=== PATIENT | female | born 1935 | race Caucasian/White ===

== ENCOUNTER 2020-04-19 05:18 | Inpatient (IN) ==
--- NOTE | 2020-04-19 05:35 | Emergency Department Note ---
Impression & Plan Closed fracture of left hip, Fall, Acute UTI (urinary tract infection) ED Provider Note Name: HALEIGH SNYDER Age: 84 Sex: F Arrives Via: Ambulance Informant: Patient, EMS ED Provider: David Chisholm MD Chief Complaint: Left hip pain Impression: Closed fracture of left hip Fall Medical Decision Making: Pleasant talkative 84 yr old female wit history of HTN, DLP, CKD who arrives with left hip pain gradually worsening since fall 4 days ago and now unable to ambulate even with assist. Comfortable with laying still but with ROM left hip clearly uncomfortable. Initial hip xray with questionable fx at base femoral head and thus CT ordered. With fall and age CT head done which was negative. CT lumbar given previous surgical history and age with fall which was negative for acute findings. CT pelvis confirms fracture. Labs unremarkable. Hospital ist consulted for further management. Patient stable and comfortable throughout stay. Prior Medical Record and Triage/Nursing Notes reviewed by Me Differentials:Fracture, dislocation, sprain, hematoma, ICH, amongst other pathologies. Vital Signs: reviewed and remarkable for no significant abnormalities Interventions: saline lock Labs:Reviewed and remarkable for no significant abnormalities Imaging:X ray results are stated below per my interpretation: Chest: 1 view: No infiltrate, no effusion, normal cardiac border. Pelvis: 2 ivew: assymitry left hip to right with concern base femoral head fracture on left Femur: left: 3 view: base femoral head irregularity EKG:Per My Interpretation: Indication Fall, pre-op: NSR 66 bpm, qtc 450. No Ectopy. No Ischemia. Compared to EKG 04/05/18, no significant changes. Consults:Dr Donovan Lee Hospitalist Plan: Disposition:Hospitalization. Condition: Good Blood pressure:Normal.No Referral necessary Prescriptions:none PDMP: n/a History of Present Illness:84 / F with history of HTN, DLP, CKD arrives for evaluation of left hip pain. Patient admits trip and fall on to buttocks 4 days ago. Gradually worsening left hip pain since then. Worse with movement, better with rest. Pain radiates in to left groin. No associated symptoms. She initially was able to get around with assistance but now can put no weight on left leg even with assist and walker. Using Tylenol for pain with minimal improvement. Has never injured hip previously. Notes low back surgery in past but no problems recently and denies back pain. Denies head injury, headache, neck pain, sob, cp, cough, fevers, syncope, abdominal pain, back pain, urinary/bowel changes, leg swelling, calf pain nor other symptoms. She denies frequent falls. Denies blood thinner use but is on ASA daily. No previous bleeding issues. ROS: See above HPI for pertinent positives & negatives. A total of 10 systems reviewed and were otherwise negative. Past Medical History:HTN, DLP, CKD, anxiety/depression, gerd Past Surgical History:Lumbar surgery Family History:na/ Social History:Lives with daughter, denies etoh, denies smoking, retired Home Medications:Amlodipine, aspirin, atenolol, atorvastatin, famotidine, fluoxetine, furosemide, meclizine Allergies:PNC, Cephalosporins, Lisinopril, simvastatin, quinine, propoxyphen Vitals:Blood Pressure: 151/54, Pulse 68, RR 18, T 36.5C, O2 95% on RA Physical Exam: GENERAL: Patient is well appearing and in mild distress. Anxious EYES: No scleral icterus, unremarkable pupils. ENT: Mucous membranes moist, no nasal congestion. NECK: No masses appreciated, nomeningismus, trachea is midline. RESPIRATORY: No dyspnea. Clear to auscultation and equal bilaterally. No wheeze, no rhonchi. CARDIOVASCULAR: Regular rate and rhythm.No murmurs, rubs, gallops appreciated. GASTROINTESTINAL: Abdomen soft, non-tender, no peritonitis.Bowel sounds positive.No masses appreciated. BACK: No midline tenderness, no CVA tenderness EXTREMITIES: Pain with rom left hip. Otherwise normal motion all extremities, no cyanosis, no edema. NEUROLOGIC: Alert and oriented, no acute motor or sensory deficits, no focal weakness, cranial nerves grossly intact. SKIN: No rash, no jaundice, no diaphoresis. 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 Beliefs That Will Affect Care: None Current Living Situation: Alone Other Information That Helps Us Care for You: No Feels Safe at Home: Yes Safety Concerns: Feels Safe At This Time Smoking Status: Never smoker Hx Alcohol Use: No Hx Substance Use: No Allergies Allergies Allergy/AdvReac Type Severity Reaction Status Date / Time Penicillins Allergy Unknown UNKNOWN Verified 04/19/20 06:00 propoxyphene Allergy Unknown UNKNOWN Verified 04/19/20 06:00 Cephalosporins AdvReac Intermediate DIZZINESS Verified 04/19/20 06:00 & NAUSEA lisinopril AdvReac Intermediate COUGH Verified 04/19/20 06:00 simvastatin AdvReac Intermediate MUSCLE PAIN Verified 04/19/20 06:00 QUININE SULFATE Allergy Unknown UNKNOWN Uncoded 04/19/20 06:00 Home Meds Home Medications Medication Instructions Recorded Confirmed amlodipine 5 mg PO DAILY 04/19/20 04/19/20 aspirin 81 mg PO DAILY 04/19/20 04/19/20 atenolol 50 mg PO DAILY 04/19/20 04/19/20 atorvastatin 10 mg PO DAILY 04/19/20 04/19/20 famotidine 20 mg PO BID PRN 04/19/20 04/19/20 fluoxetine 20 mg PO DAILY 04/19/20 04/19/20 furosemide 20 mg PO DAILY 04/19/20 04/19/20 meclizine 25 mg PO TID PRN 04/19/20 04/19/20 multivitamin 1 tab PO DAILY 04/19/20 04/19/20 Results & Data (ED) Vital Signs Vital Signs - 24 hr 04/19/20 06:00 04/19/20 06:01 04/19/20 06:30 Pulse Rate 76 73 Pulse Rate [Apical] 88 Pulse Rate from SpO2 Sensor Pulse Rhythm [Apical] Pulse Strength [Apical] Respiratory Rate 24 20 16 Respiratory Effort / Characteristics Non-Labored Spontaneous Respiratory Depth Normal Respiratory Pattern Blood Pressure 146/58 H Blood Pressure [Right Arm] 146/58 H Blood Pressure Mean 93 Blood Pressure Mean [Right Arm] 87 Blood Pressure Position [Right Arm] Pulse Oximetry 95 94 98 Oxygen Delivery Method Room Air 04/19/20 06:31 04/19/20 06:32 04/19/20 06:35 Pulse Rate 69 66 Pulse Rate [Apical] 68 Pulse Rate from SpO2 Sensor Pulse Rhythm [Apical] Pulse Strength [Apical] Respiratory Rate 20 19 18 Respiratory Effort / Characteristics Respiratory Depth Respiratory Pattern Blood Pressure 151/54 H Blood Pressure [Right Arm] 151/54 H Blood Pressure Mean 84 Blood Pressure Mean [Right Arm] 86 Blood Pressure Position [Right Arm] Sitting Pulse Oximetry 93 94 95 Oxygen Delivery Method Room Air 04/19/20 07:00 04/19/20 07:01 04/19/20 07:10 Pulse Rate 63 63 Pulse Rate [Apical] 66 Pulse Rate from SpO2 Sensor 63 64 Pulse Rhythm [Apical] Regular Pulse Strength [Apical] Normal Respiratory Rate 19 21 21 Respiratory Effort / Characteristics Non-Labored Spontaneous Respiratory Depth Normal Respiratory Pattern Regular Blood Pressure 140/56 L Blood Pressure [Right Arm] 140/56 L Blood Pressure Mean 98 Blood Pressure Mean [Right Arm] 84 Blood Pressure Position [Right Arm] Lying Pulse Oximetry 94 93 96 Oxygen Delivery Method Room Air 04/19/20 07:30 04/19/20 07:31 Pulse Rate 76 74 Pulse Rate [Apical] Pulse Rate from SpO2 Sensor Pulse Rhythm [Apical] Pulse Strength [Apical] Respiratory Rate 21 22 Respiratory Effort / Characteristics Respiratory Depth Respiratory Pattern Blood Pressure 160/60 H Blood Pressure [Right Arm] Blood Pressure Mean 78 Blood Pressure Mean [Right Arm] Blood Pressure Position [Right Arm] Pulse Oximetry 94 94 Oxygen Delivery Method Laboratory Data Result diagrams: 04/19/20 05:45 04/19/20 06:53 Lab Results 04/19/20 04/19/20 04/19/20 Range/Units 05:45 05:45 05:45 WBC 9.12 (4.8-10.8) K/uL RBC 4.25 (4.2-5.4) M/uL Hgb 13.0 (12.0-16.0) g/dL Hct 39.6 (37-47) % MCV 93.2 (80-100) fL MCH 30.6 (25-34) pg MCHC 32.8 (32-36) g/dL RDW Std Deviation 46.1 (36.4-46.3) fL RDW Coeff of Edison 13.6 (11.5-14.5) % Plt Count 201 (130-400) K/uL MPV 10.3 (7.4-10.4) fL Immature Gran % (Auto) 0.2 % Neut % (Auto) 68.1 % Lymph % (Auto) 15.0 % [facility] % (Auto) 13.9 % Eos % (Auto) 2.3 % Baso % (Auto) 0.5 % Neut # (Auto) 6.20 (1.4-6.5) K/uL Lymph # (Auto) 1.37 (1.2-3.4) K/uL [facility] # (Auto) 1.27 H (0.11-0.59) K/uL Eos # (Auto) 0.21 (0-0.5) K/uL Baso # (Auto) 0.05 (0-0.2) K/uL Immature Gran # (Auto) 0.02 (0.00-0.02) K/uL PT Cancelled INR Cancelled APTT (21.0-31.0) Seconds PTT Ratio Sodium 143 (136-145) mmol/L Potassium (3.5-5.1) mmol/L Chloride 110 H (98-107) mmol/L Carbon Dioxide 24 (21-32) mmol/L Anion Gap 9.0 (3-11) BUN 21 H (7-18) mg/dl Creatinine 0.93 (0.6-1.2) mg/dl Est Cr Clr Drug Dosing 50.5 ml/min Est GFR ( Amer) 65.0 Est GFR (Non-Af Amer) 56.0 BUN/Creatinine Ratio 22.2 H (10-20) Glucose 104 H (70-99) mg/dl Calcium 9.2 (8.5-10.1) mg/dl Magnesium (1.8-2.4) mg/dl Urine Color Urine Appearance (Clear) Urine pH (4.5-7.5) Ur Specific Morehead (1.000-1.030) Urine Protein (Negative) Urine Glucose (UA) (Negative) Urine Ketones (Negative) Urine Blood (Negative) Urine Nitrite (Negative) Urine Bilirubin (Negative) Urine Urobilinogen (Negative) Ur Leukocyte Esterase (Negative) Urine WBC (Auto) (0-5) /hpf Urine RBC (Auto) (0-4) /hpf U Hyaline Cast (Auto) (0-5) /lpf U Epithel Cells (Auto) (0-5) /lpf Urine Bacteria (Auto) (Negative) Urine Yeast 04/19/20 04/19/20 04/19/20 Range/Units 06:10 06:53 06:53 WBC (4.8-10.8) K/uL RBC (4.2-5.4) M/uL Hgb (12.0-16.0) g/dL Hct (37-47) % MCV (80-100) fL MCH (25-34) pg MCHC (32-36) g/dL RDW Std Deviation (36.4-46.3) fL RDW Coeff of Edison (11.5-14.5) % Plt Count (130-400) K/uL MPV (7.4-10.4) fL Immature Gran % (Auto) % Neut % (Auto) % Lymph % (Auto) % [facility] % (Auto) % Eos % (Auto) % Baso % (Auto) % Neut # (Auto) (1.4-6.5) K/uL Lymph # (Auto) (1.2-3.4) K/uL [facility] # (Auto) (0.11-0.59) K/uL Eos # (Auto) (0-0.5) K/uL Baso # (Auto) (0-0.2) K/uL Immature Gran # (Auto) (0.00-0.02) K/uL PT 10.8 INR 1.0 APTT 27.8 (21.0-31.0) Seconds PTT Ratio 1.0 Sodium (136-145) mmol/L Potassium 3.3 L (3.5-5.1) mmol/L Chloride (98-107) mmol/L Carbon Dioxide (21-32) mmol/L Anion Gap (3-11) BUN (7-18) mg/dl Creatinine (0.6-1.2) mg/dl Est Cr Clr Drug Dosing ml/min Est GFR ( Amer) Est GFR (Non-Af Amer) BUN/Creatinine Ratio (10-20) Glucose (70-99) mg/dl Calcium (8.5-10.1) mg/dl Magnesium 1.8 (1.8-2.4) mg/dl Urine Color Yellow Urine Appearance Turbid A (Clear) Urine pH 5.5 (4.5-7.5) Ur Specific Morehead 1.020 (1.000-1.030) Urine Protein 2+ H (Negative) Urine Glucose (UA) Negative (Negative) Urine Ketones 1+ H (Negative) Urine Blood 2+ H (Negative) Urine Nitrite Positive A (Negative) Urine Bilirubin Negative (Negative) Urine Urobilinogen Negative (Negative) Ur Leukocyte Esterase 3+ H (Negative) Urine WBC (Auto) >30 H (0-5) /hpf Urine RBC (Auto) 5-10 H (0-4) /hpf U Hyaline Cast (Auto) 1-5 (0-5) /lpf U Epithel Cells (Auto) >30 H (0-5) /lpf Urine Bacteria (Auto) 4+ H (Negative) Urine Yeast Not Reportable Administered Medications Acetaminophen (Tylenol) 650 mg PO Q6H PRN PRN Reason: Fever Stop: 05/19/20 20:07 Last Admin: 04/19/20 20:53 Dose: 650 mg Documented by: [id number] Amlodipine Besylate (Norvasc) 5 mg PO DAILY [facility] Stop: 05/19/20 08:24 Last Admin: 04/19/20 10:48 Dose: Not Given Documented by: [id number] Admin: 04/19/20 08:40 Dose: 5 mg Documented by: [id number] Aspirin (Ecotrin) 325 mg PO BID [facility] Stop: 05/19/20 20:59 Last Admin: 04/19/20 20:53 Dose: 325 mg Documented by: [id number] Admin: 04/19/20 20:51 Dose: 325 mg Documented by: [id number] Atenolol (Tenormin) 50 mg PO DAILY [facility] Stop: 05/19/20 09:36 Last Admin: 04/19/20 09:45 Dose: 50 mg Documented by: [id number] Atorvastatin Calcium (Lipitor) 10 mg PO DAILY [facility] Stop: 05/19/20 11:59 Last Admin: 04/19/20 12:50 Dose: Not Given Documented by: [id number] Fluoxetine HCl (Prozac) 20 mg PO DAILY [facility] Stop: 05/19/20 09:36 Last Admin: 04/19/20 12:49 Dose: Not Given Documented by: [id number] Potassium Chloride 20 meq/ (Dextrose/Sodium Chloride) 1,010 mls @ 100 mls/hr IV .Q10H6M [facility] Stop: 05/19/20 09:45 Last Admin: 04/20/20 00:35 Dose: 100 mls/hr Documented by: [id number] Infusion: 04/20/20 00:35 Dose: 100 mls/hr Documented by: [id number] Infusion: 04/19/20 22:41 Dose: 100 mls/hr Documented by: [id number] Infusion: 04/19/20 17:38 Dose: 100 mls/hr Documented by: [id number] Infusion: 04/19/20 13:40 Dose: 0 mls/hr Documented by: [id number] Admin: 04/19/20 11:34 Dose: 100 mls/hr Documented by: [id number] Ciprofloxacin (Cipro) 400 mg in 200 mls @ 100 mls/hr IV Q12H [facility] Stop: 04/23/20 20:59 Last Infusion: 04/19/20 22:48 Dose: 0 mls/hr Documented by: [id number] Admin: 04/19/20 19:55 Dose: 100 mls/hr Documented by: [id number] Clindamycin Phosphate 900 mg/ (Dextrose) 56 mls @ 112 mls/hr IV Q8H [facility] Stop: 04/20/20 21:59 Last Infusion: 04/19/20 23:41 Dose: 0 mls/hr Documented by: [id number] Admin: 04/19/20 22:42 Dose: 112 mls/hr Documented by: [id number] Morphine Sulfate (Morphine Sulfate) 2 mg IV Q3H PRN PRN Reason: MODERATE Pain (Scale 4,5,6) Stop: 05/03/20 09:36 Last Admin: 04/19/20 09:45 Dose: 2 mg Documented by: [id number] Multivitamins (Multivitamin Tab) 1 tab PO DAILY [facility] Stop: 05/19/20 11:59 Last Admin: 04/19/20 12:50 Dose: Not Given Documented by: [id number] Senna/Docusate Sodium (Senokot S) 2 tab PO HS [facility] Stop: 05/19/20 20:59 Last Admin: 04/19/20 20:52 Dose: 2 tab Documented by: [id number] Admin: 04/19/20 20:51 Dose: 2 tab Documented by: [id number] Discontinued Medications Aspirin (Ecotrin Ectab) 81 mg PO DAILY [facility] Stop: 05/19/20 11:59 Last Admin: 04/19/20 12:50 Dose: Not Given Documented by: [id number] Bupivacaine HCl (Marcaine 0.5% Mpf) Confirm Administered Dose 30 ml .ROUTE .STK- MED ONE Stop: 04/19/20 14:27 Last Admin: 04/19/20 15:42 Dose: 20 ml Documented by: [id number] Ciprofloxacin (Cipro) 400 mg in 200 mls @ 200 mls/hr IV NOW STA Stop: 04/19/20 07:50 Last Infusion: 04/19/20 08:08 Dose: 0 mls/hr Documented by: [id number] Admin: 04/19/20 07:08 Dose: 200 mls/hr Documented by: [id number] Potassium Acetate 10 meq/ (Sodium Chloride) 105 mls @ 105 mls/hr IV Q1H [facility] Stop: 04/19/20 10:24 Last Infusion: 04/19/20 11:07 Dose: 0 mls/hr Documented by: [id number] Admin: 04/19/20 09:48 Dose: 105 mls/hr Documented by: [id number] Infusion: 04/19/20 09:42 Dose: 105 mls/hr Documented by: [id number] Admin: 04/19/20 08:42 Dose: 105 mls/hr Documented by: [id number] Clindamycin Phosphate 900 mg/ (Dextrose) 56 mls @ 112 mls/hr IV PREOP [facility] Stop: 04/19/20 23:59 Last Infusion: 04/19/20 17:41 Dose: 0 mls/hr Documented by: [id number] Admin: 04/19/20 15:00 Dose: 112 mls/hr Documented by: [id number] Lidocaine HCl (Xylocaine 1% (Local)) Confirm Administered Dose 20 ml .ROUTE .STK-MED ONE Stop: 04/19/20 14:27 Last Admin: 04/19/20 15:42 Dose: 20 ml Documented by: [id number] Discharge Plan Visit Data *Final* Discharge Date/Time: 04/19/20 10:04 Chief Complaint: Fall Stated Complaint: Fall ED Provider: David Chisholm Discharge Problem: Closed fracture of left hip, Fall, Acute UTI (urinary tract infection) Patient Disposition: Admitted As Inpatient Discharge Instructions Interventions: ED Discharge Assessment Last Done: 04/19/20 10:04 Discharge Problem: Closed fracture of left hip Qualifiers: Encounter type: initial encounter Qualified Code(s): S72.002A - Fracture of unspecified part of neck of left femur, initial encounter for closed fracture Fall Qualifiers: Encounter type: initial encounter Qualified Code(s): W19.XXXA - Unspecified fall, initial encounter
[2020-04-19 05:55] LABS: Basophils # (auto) 0.05 K/uL (0-0.2); Basophils % (auto) 0.5 %; Eosinophils # (auto) 0.21 K/uL (0-0.5); Eosinophils % (auto) 2.3 %; Hematocrit (blood only) 39.6 % (37-47); Immature Granulocytes # (auto) 0.02 K/uL (0.00-0.02); Immature Granulocytes % (auto) 0.2 %; Lymphocytes # (auto) 1.37 K/uL (1.2-3.4); Mean Corpuscular Hemoglobin 30.6 pg (25-34); Mean Corpuscular Hgb Conc 32.8 g/dL (32-36); Mean Corpuscular Volume 93.2 fL (80-100); Mean Platelet Volume 10.3 fL (7.4-10.4); Monocytes # (auto) 1.27 K/uL (0.11-0.59); Monocytes % (auto) 13.9 %; Neutrophils % (auto) 68.1 %; Platelet Count 201 K/uL (130-400); RDW Coefficient of Variation 13.6 % (11.5-14.5); RDW Standard Deviation 46.1 fL (36.4-46.3); Red Blood Count 4.25 M/uL (4.2-5.4); White Blood Count 9.12 K/uL (4.8-10.8)
[2020-04-19 06:14] LABS: BUN Creatinine Ratio 22.2 (10-20); Calcium 9.2 mg/dl (8.5-10.1); Creatinine Clr Calc Pharmacy 50.5 ml/min
--- NOTE | 2020-04-19 06:38 | CT Scan Report ---
CT head/brain wo con CLINICAL HISTORY: 84 years-old Female with fall, hip fracture. Acute head injury status post fall TECHNIQUE: Multiple axial CT images of the head were obtained without contrast. A dose lowering tech nique was utilized adhering to the principles of ALARA. CT DOSE: 537.48 mGy.cm COMPARISON: Head CT 04/05/2018. FINDINGS: No acute intracranial hemorrhage, midline shift, intra-axial mass, hydrocephalus, territorial ischemi a or abnormal extra-axial collection. Age-related involutional changes. Confluent white matter hypode nsities suggest advanced chronic microvascular ischemic disease. 1.2 cm calcification of the anterior falx cerebri. Senescent calcifications of the lentiform nuclei. Cerebral vascular calcifications. The calvarium is intact. Note is made of a metopic suture. Hyperostosis frontalis interna. The parana sacha sinuses, mastoid air cells, and middle ear cavities are clear. IMPRESSION: No acute intracranial abnormality or calvarial fracture. ACT 112: Negative or not required by law. The above report was generated using voice recognition software. It may contain grammatical, syntax o r spelling errors. Electronically signed by: Ronnie Antoine M.D. 04/19/2020 6:37 AM
--- NOTE | 2020-04-19 06:41 | XRay Report ---
XR femur LT 2V routine CLINICAL HISTORY: left hip pain s/p fall COMPARISON: None FINDINGS: Note is made of an impacted subcapital left femoral neck fracture. No additional fractures within the left femur are noted. 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 There is no suspicious o sseous lesion. There is no joint effusion. IMPRESSION: Acute impacted subcapital left femoral neck fracture. ACT 112: Negative or not required by law. Electronically signed by: Isai Huang M.D. 04/19/2020 6:40 AM
[2020-04-19 06:43] LABS: Appearance Urine Turbid (Clear); Bacteria Urine Automated 4+ (Negative); Bilirubin Urine Negative (Negative); Blood Urine 2+ (Negative); Color Urine Yellow; Epithelial Cell Urine Auto >30 /lpf (0-5); Glucose Urine UA Negative (Negative); Ketones Urine 1+ (Negative); Leukocyte Esterase Urine 3+ (Negative); Nitrite Urine Positive (Negative); Protein Urine 2+ (Negative); Urobilinogen Urine Negative (Negative); WBC Urine Automated >30 /hpf (0-5); pH Urine 5.5 (4.5-7.5)
--- NOTE | 2020-04-19 06:45 | CT Scan Report ---
CT pelvis wo con CLINICAL HISTORY: left pelvic and hip pain s/p fall COMPARISON STUDY: Pelvis and left femur radiographs performed earlier today. TECHNIQUE: Axial images of the pelvis were obtained without IV contrast. Sagittal and coronal reconst ructions were viewed. Automated exposure control was utilized for the study. A dose lowering techniq ue was utilized adhering to the principles of ALARA. FINDINGS: Note is made of an acute impacted left femoral neck fracture. There is a left hip joint eff usion. No additional acute fractures are identified within the pelvis or the hips. There is sigmoid d iverticulosis without evidence for acute diverticulitis. There are pelvic surgical clips. There is no suspicious osseous lesion. The sacroiliac joints and symphysis pubis are intact. Right iliac bone titus rvest site is noted. IMPRESSION: Acute impacted subcapital left femoral neck fracture. ACT 112: Negative or not required by law. Electronically signed by: Isai Huang M.D. 04/19/2020 6:44 AM
--- NOTE | 2020-04-19 06:46 | XRay Report ---
XR pelvis 1-2V routine CLINICAL HISTORY: left hip pain s/p fall COMPARISON: None FINDINGS: Note is made of an acute impacted subcapital left femoral neck fracture. No additional fra ctures within the pelvis or hips are identified. 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 There are surgical clips within the pelvis. The sacroiliac joints and symphysis pubis are intact. IMPRESSION: Acute impacted subcapital right femoral neck fracture. ACT 112: Negative or not required by law. Electronically signed by: Isai Huang M.D. 04/19/2020 6:45 AM
--- NOTE | 2020-04-19 06:49 | CT Scan Report ---
CT lumbar spine wo con HISTORY: 84 years-old Female fall, left hip pain, h/o lumbar surgery acute low back pain and left hi p pain status post fall. COMPARISON: CT pelvis of same day, chest radiograph 04/05/2018 TECHNIQUE: Multiple axial CT images of the lumbar spine were obtained without the use of IV contrast. A dose lowering technique was used consistent with the principals of ALARA. FINDINGS: Demineralized appearance of the bones. 9 mm anterolisthesis L4 on L5 is likely degenerative related. Severe facet arthrosis is noted throughout the lumbar spine with degenerative fusion of the L4-L5 and L5-S1 facets. Severe disc space narrowing with partial bony fusion of the vertebral bodies at L5-S1. Moderate multilevel spondylitic spurring with posterior disc osteophyte complex formations. Vacuum d isc phenomenon is noted at multiple levels. Degenerative endplate sclerosis is most pronounced at L1- L2. 6 mm retrolisthesis L1 on L2 is also likely on a degenerative basis. Grade 1 retrolisthesis T12 o n L1 and L2 on L3. Mild lumbar levoscoliosis. No definite acute fracture or subluxation. Likely posto perative bony defect about the posterior aspect of the right iliac bone. Metallic density wires proje ct over the transverse processes of the mid to lower lumbar spine. There is suggestion of partial lopez inectomy changes at L4 and L5 with heterotopic ossification within the posterior elements. Evaluation of the central canal and neuroforamina is better evaluated by MRI. Severe central canal st enosis is noted at L2-L3 and L3-L4. Multilevel foraminal narrowing. Extensive calcified plaque of the abdominal aorta. There is suggestion renal sinus cysts involving the left kidney. IMPRESSION: 1. No acute fracture or subluxation identified. 2. Levoscoliosis with multilevel degenerative changes as above. 3. Severe central canal stenosis at L2-L3 and L3-L4 with multilevel foraminal narrowing. ACT 112: Negative or not required by law. The above report was generated using voice recognition software. It may contain grammatical, syntax o r spelling errors. Electronically signed by: Ronnie Antoine M.D. 04/19/2020 6:47 AM
[2020-04-19] MEDS ORDERED: CIPROFLOXACIN / D5W 400 MG/200 ML BAG IV STA (06:51)
--- NOTE | 2020-04-19 07:15 | XRay Report ---
XR chest 1V portable HISTORY: 84 years-old Female fall/trauma acute chest trauma status post fall COMPARISON: Chest radiograph 04/05/2018 TECHNIQUE: Portable AP view of the chest FINDINGS: Cardiomegaly. Calcified plaque of the thoracic aorta arch. Moderate hiatal hernia. Unchanged mild ple ural thickening of the lung apices. There is no pneumothorax, pleural effusion, airspace consolidatio n or overt pulmonary edema. Degenerative changes of the shoulders and spine. IMPRESSION: No acute process. ACT 112: Negative or not required by law. The above report was generated using voice recognition software. It may contain grammatical, syntax o r spelling errors. Electronically signed by: Ronnie Antoine M.D. 04/19/2020 7:13 AM
[2020-04-19 07:18] LABS: Partial Thromboplastin Time 27.8 Seconds (21.0-31.0); Prothrombin Time 10.8 Seconds (9.0-12.0)
[2020-04-19 07:19] LABS: Potassium 3.3 mmol/L (3.5-5.1)
[2020-04-19 07:20] LABS: Magnesium 1.8 mg/dl (1.8-2.4)
--- NOTE | 2020-04-19 08:33 | History & Physical Report ---
Date of Service April 19, 2020 Assessment & Plan (1) Fall: (2) Closed fracture of left hip: This is an 84yo F with a PMH of HTN, HLD, GERD and other medical problems listed below who presents with left hip pain after fall over the weekend and was found to have acute impacted subcapital left femoral neck fracture and acute urinary tract infection. -Fell 4 days ago while ambulating without walker, presenting this morning for increased pain and difficulty with ambulation -CT pelvis with acute impacted subcapital left femoral neck fracture -Ortho aware with plans to evaluate. Anesthesiology consulted as well. Pre-op covid screen pending -Keep NPO for now, NWB on LLE, IV fluids, pain control, on cipro for UTI -EKG essentially unchanged from prior (reviewed only EKG on file from 2007), no chest pain, CXR without acute abnormality -Per Revised Cardiac Risk Index for Pre-Operative Risk, patient with class I risk (3.9 % 30-day risk of , NJ, or cardiac arrest) (3) Acute UTI (urinary tract infection): Abnormal UA, urine culture pending. Started on Cipro with Pendleton catheter placed (4) Hypokalemia: K of 3.3. Replacing with 20 mEq K riders and D5 + 1/2 NSS with 20 mEq KCl -Trend with daily BMP (5) HTN (hypertension): Normotensive. Given missed a.m. doses of atenolol and amlodipine (6) Mood disorder: Given morning dose of fluoxetine (7) GERD (gastroesophageal reflux disease): Continue H2 viri as needed (8) HLD (hyperlipidemia): Continue statin DVT Ppx: SCDs Code status: FULL PCP: Julianne Dispo: Admitted to med/surg. Discharge planning ordered. Patient seen in collaboration with Dr. Ramachandran. Please see addendum. History of Present Illness Chief Complaint: fall, hip pain Primary Care Provider: Addison Crenshaw, This is an 84yo F with a PMH of HTN, HLD, GERD and other medical problems listed below who presents with left hip pain after fall over the weekend. Four days ago, patient ambulated without walker to mailbox, lost her balance and slipped on left side. Denies any loss of consciousness or head trauma. Was able to get up with assistance of other people and pain subsided. The next day, patient iced area and took Tylenol with management of symptoms the pain worsened yesterday and became more difficult to ambulate, even with assistance. Daughter encouraged patient to come to ED today for further evaluation of left hip pain. Pain is aching and constant on back of L thigh with radiation to groin. No weakness or numbness in left leg. Denies any fever, chills, cough, chest pain or shortness of breath. + increased urinary urgency the past 2 days. No known COVID exposures. Denies any nausea, vomiting, abdominal pain, dysuria, diarrhea or constipation. Lives alone in [facility] with family nearby. Allergies Allergy/AdvReac Type Severity Reaction Status Date / Time Penicillins Allergy Unknown UNKNOWN Verified 04/19/20 06:00 propoxyphene Allergy Unknown UNKNOWN Verified 04/19/20 06:00 Cephalosporins AdvReac Intermediate DIZZINESS Verified 04/19/20 06:00 & NAUSEA lisinopril AdvReac Intermediate COUGH Verified 04/19/20 06:00 simvastatin AdvReac Intermediate MUSCLE PAIN Verified 04/19/20 06:00 QUININE SULFATE Allergy Unknown UNKNOWN Uncoded 04/19/20 06:00 Home Medications Home Medications Medication Instructions Recorded Confirmed Type amlodipine 5 mg PO DAILY 04/19/20 04/19/20 History aspirin 81 mg PO DAILY 04/19/20 04/19/20 History atenolol 50 mg PO DAILY 04/19/20 04/19/20 History atorvastatin 10 mg PO DAILY 04/19/20 04/19/20 History famotidine 20 mg PO BID PRN 04/19/20 04/19/20 History fluoxetine 20 mg PO DAILY 04/19/20 04/19/20 History furosemide 20 mg PO DAILY 04/19/20 04/19/20 History meclizine 25 mg PO TID PRN 04/19/20 04/19/20 History multivitamin 1 tab PO DAILY 04/19/20 04/19/20 History Past Med/Surg History Medical History GERD (gastroesophageal reflux disease) HLD (hyperlipidemia) HTN (hypertension) Mood disorder Surgical History H/O spinal fusion Family History Other Diabetes Heart disease Hypertension Social History Preferred Language: Ukrainian Communication Ability: Effective Chalk Cutter Required: No Beliefs That Will Affect Care: None Current Living Situation: Alone Other Information That Helps Us Care for You: No Feels Safe at Home: Yes Safety Concerns: Feels Safe At This Time Smoking Status: Never smoker Hx Alcohol Use: No Hx Substance Use: No Review of Systems Review of Systems: At least ten systems reviewed and negative except as noted in the HPI. Physical Exam Physical Exam: General Appearance: WD/WN, vitals as above, NAD, lying in bed, pleasant, conversing easily Head: normocephalic, atraumatic Eyes: normal inspection, PERRL, conjunctivae normal, anicteric sclerae ENT: external ear and nose normal, oropharynx normal Neck: trachea midline, no thyromegaly normal visual inspection Respiratory: normal respiratory effort, lungs clear to auscultation, no wheeze, rales, rhonchi. Normal insp/exp effort, no accessory muscle use Cardiovascular: regular rate, rhythm, no murmur, normal peripheral pulses. Vessels: no JVD or carotid bruit Chest: normal inspection of chest Abdomen/GI: normal bowel sounds, soft, nontender, no hepatosplenomegaly Extremities/Musculoskeletal: LLE TTP, most at posterior thigh, decreased ROM 2/2 pain. Distal pulses intact. No cyanosis or clubbing Neurologic: PERRL, EOMI, accommodation nl, no face palsy, no dysarthria, CN's II-XI intact bilaterally and moves all extremities Psychiatric: A+Ox3, euthymic affect Skin: no rashes, normal color, warm/dry Results & Data Results & Data ([facility]) Vital Signs (Past 12 Hours) Vital Signs Temp Pulse Pulse Resp BP BP Pulse Ox 04/19/20 07:10 66 21 140/56 L 96 04/19/20 06:35 68 18 151/54 H 95 04/19/20 06:30 88 16 146/58 H 98 04/19/20 05:33 36.5 C 74 12 122/69 98 Laboratory Results Short CBC 04/19/20 Range/Units 05:45 WBC 9.12 (4.8-10.8) K/uL Hgb 13.0 (12.0-16.0) g/dL Hct 39.6 (37-47) % Plt Count 201 (130-400) K/uL BMP 04/19/20 04/19/20 05:45 06:53 Sodium 143 Potassium 3.3 L Chloride 110 H Carbon Dioxide 24 BUN 21 H Creatinine 0.93 Glucose 104 H Calcium 9.2 Urine 04/19/20 Range/Units 06:10 Urine Color Yellow Urine Appearance Turbid A (Clear) Urine pH 5.5 (4.5-7.5) Ur Specific [place] 1.020 (1.000-1.030) Urine Protein 2+ H (Negative) Urine Glucose (UA) Negative (Negative) Diagnostic Findings CT head: IMPRESSION: No acute intracranial abnormality or calvarial fracture. CXR: IMPRESSION: No acute process. L Femur XR: IMPRESSION: Acute impacted subcapital left femoral neck fracture. L Pelvis XR: IMPRESSION: Acute impacted subcapital right femoral neck fracture. CT Lumber spine: IMPRESSION: 1. No acute fracture or subluxation identified. 2. Levoscoliosis with multilevel degenerative changes as above. 3. Severe central canal stenosis at L2-L3 and L3-L4 with multilevel foraminal narrowing. CT pelvis: IMPRESSION: Acute impacted subcapital left femoral neck fracture. Supervising Physician Co-Signing Physician Notes Pt was seen and examined while daughter present at bedside. Agreed with Alyson Garcia exam assessment and plan. 84 yo female PMH of HTN, HLD, GERD presents to the ER with left hip pain after sustained a fall over the weekend. Pt said that she was walking without her walker to the mailbox when she lost her balance and fell. She said that this morning pain got worst and was brought to the ER for eval. Pelvis Xray showed acute impacted subcapital left femoral neck fracture. CT lumbar spine showed no acute fracture or subluxation identified. CT pelvis showed acute impacted subcapital left femoral neck fracture. CT head showed no intracranial abnormality. daughter said that before the injury, pt was able to use a walker to walk around without any distress. Denies any chest pain or palpitation with exertion. No cardiac or CVA history as per daughter. Ortho is on board and pt is schedule to have ORIF surgery by [facility] orthopedic. I discussed with patient and daughter about the surgical complications such as bleeding, infection,worsening pain, blood clot, NJ and even . Pt is stable to proceed with the orthopedic surgical procedure. Continue pain control. Fall precaution. Pre-op COVID 19 test negative. MD Madie (1) Fall Encounter type: initial encounter Qualified Code(s): W19.XXXA - Unspecified fall, initial encounter (2) Closed fracture of left hip Encounter type: initial encounter Qualified Code(s): S72.002A - Fracture of unspecified part of neck of left femur, initial encounter for closed fracture
[2020-04-19] MEDS: AMLODIPINE BESYLATE 5 MG TAB PO SCH ×2 (08:40→10:48)
[2020-04-19] MEDS: POTASSIUM ACETATE 10 MEQ in 0.9 % SODIUM CHLORIDE 100 ML IV SCH ×2 (08:42→09:48)
[2020-04-19] MEDS: ATENOLOL 50 MG TABLET PO SCH (09:45)
[2020-04-19] MEDS: MoRPHine SULFATE 2 MG/ML CARP IV PRN (09:45)
[2020-04-19] MEDS ORDERED: bisacodyL 10 MG SUPP PR PRN (10:46)
[2020-04-19] MEDS ORDERED: FAMOTIDINE 20 MG TAB PO PRN (10:46)
[2020-04-19] MEDS ORDERED: NALOXONE HCL 0.4 MG/1 ML VIAL/CARP IV PRN (10:46)
[2020-04-19] MEDS ORDERED: MAGNESIUM HYDROXIDE SUSP 30 ML UDC PO PRN (10:46)
[2020-04-19] MEDS ORDERED: CIPROFLOXACIN CONSULT ACTIVE PRN (11:03)
[2020-04-19] MEDS ORDERED: MECLIZINE HCL 25 MG TAB PO PRN (11:22)
[2020-04-19] MEDS: POTASSIUM CHLORIDE 20 MEQ in D5W AND 1/2NSS 1,000 ML IV SCH (11:34)
[2020-04-19] MEDS ORDERED: ASPIRIN 81 MG ECTAB PO SCH (12:00)
--- NOTE | 2020-04-19 12:42 | Orthopedic Consultation ---
Date of Consultation April 19, 2020 Assessment & Plan (1) Closed fracture of left hip: Left subcapital hip fracture I have spoken to medicine service about this patient. Dr. Ramachandran is currently seeing her for her clearance for surgery. She is COVID negative on this morning's test. We will plan for ORIF of the left hip with 7.3 cannulated screws. I have spoken to the patient's daughter and all questions have been answered but have been asked. Depending on the OR timetable, we will try and fix this fracture today. If not we will plan for the ORIF tomorrow. Supervising Physician Co-Signing Physician Notes I have seen and examined the patient, and agree with DIANA Stiles's note above. She has a minimally displaced, valgus-impacted left femoral neck fracture. This fracture pattern is amenable to fixation with percutaneous cannulated screws. Risks, benefits, and alternatives of surgery were explained in detail. The surgical procedure, as well as postoperative recovery and rehabilitation, was also explained in detail. Risks include bleeding; infection; damage to surrounding structures such as nerves, blood vessels, and tendons that run in the area; persistent pain or stiffness; nonunion; malunion; hardware failure; painful prominent hardware requiring removal; or need for further surgery. She understands all of this and wishes to proceed with surgery. Preoperative workup was completed today, and informed consent was obtained. History of Present Illness Reason for Consultation: Left subcapital hip fracture Attending Physician: Marium Ramachandran MD History of Present Illness Patient is an 84-year white female who states that on Saturday, she ended up walking without her walker and lost her balance. She fell onto the floor and had a little bit of discomfort in her left hip and also complained of more knee pain than anything. Over the next several days her pain worsened and she was seen in a urgent care setting but they did not have any x-ray capabilities at that time. He had offered her a prescription to go to another facility for an x-ray but the patient wanted to see how she did. She was still ambulating with her walker but putting less weight on the left lower extremity. The pain continued to worsen and she began having groin pain as well as lateral hip pain and pain radiating down the leg. She decided to come in today to be seen in the emergency room. X-rays were taken and it was found that she had a left subcapital hip fracture. She was admitted by [facility] service and we have been asked to take care of her fracture. She is currently comfortable and alert and oriented. She denies any loss of consciousness. Denies hitting her head. Denies any shortness of breath, chest pain, lightheadedness prior to or after the fall. Allergies Allergy/AdvReac Type Severity Reaction Status Date / Time Penicillins Allergy Unknown UNKNOWN Verified 04/19/20 06:00 propoxyphene Allergy Unknown UNKNOWN Verified 04/19/20 06:00 Cephalosporins AdvReac Intermediate DIZZINESS Verified 04/19/20 06:00 & NAUSEA lisinopril AdvReac Intermediate COUGH Verified 04/19/20 06:00 simvastatin AdvReac Intermediate MUSCLE PAIN Verified 04/19/20 06:00 QUININE SULFATE Allergy Unknown UNKNOWN Uncoded 04/19/20 06:00 Home Medications Home Medications Medication Instructions Recorded Confirmed Type amlodipine 5 mg PO DAILY 04/19/20 04/19/20 History aspirin 81 mg PO DAILY 04/19/20 04/19/20 History atenolol 50 mg PO DAILY 04/19/20 04/19/20 History atorvastatin 10 mg PO DAILY 04/19/20 04/19/20 History famotidine 20 mg PO BID PRN 04/19/20 04/19/20 History fluoxetine 20 mg PO DAILY 04/19/20 04/19/20 History furosemide 20 mg PO DAILY 04/19/20 04/19/20 History meclizine 25 mg PO TID PRN 04/19/20 04/19/20 History multivitamin 1 tab PO DAILY 04/19/20 04/19/20 History Patient History Medical History GERD (gastroesophageal reflux disease) HLD (hyperlipidemia) HTN (hypertension) Mood disorder Surgical History H/O spinal fusion Family History Other Diabetes Heart disease Hypertension Social History Preferred Language: Vincentian Communication Ability: Effective Soldering Technician Required: No Beliefs That Will Affect Care: None Current Living Situation: Alone Other Information That Helps Us Care for You: No Feels Safe at Home: Yes Safety Concerns: Feels Safe At This Time Smoking Status: Never smoker Hx Alcohol Use: No Hx Substance Use: No Review of Systems Review of Systems: Please see admitting H&P. Denies any recent fevers, flu or cold-like symptoms. Denies any recent chest pain chest pressure or irregular heartbeat. Shortness of breath at rest, dyspnea, hemoptysis, or increased sputum production. Denies any abdominal pain, unusual nausea, vomiting, diarrhea. No unusual symptoms of lightheadedness, dizziness, vertigo. Physical Exam Physical Exam: Patient is a well-developed well nourished, white female. Alert and oriented x3. No acute distress. Pleasant and cooperative. Focusing the exam on the left lower extremity, leg lengths appear mostly equal with slight shortening of the left compared to the right. Patient is able to do a straight leg raise to an extent but does cause her some discomfort in the left hip and groin. Internal and external rotation as well as passive flexion extension cause her discomfort in the left hip and groin. She has no pain in the left knee during palpation and is able to gently do some minimal range of motion of the knee at this time only secondary to her hip pain from fracture. Left ankle and toes are within normal limits for range of motion and strength. Right lower extremity is unaffected and is nontender at the hip knee and ankle. Range of motion is within normal limits. Upper extremities are unaffected and she is nontender at the shoulders, elbows, wrists. Range of motion is within normal limits. She denies any cervical neck pain at this time. Denies any thoracic or low back pain. There is no gross motor or sensory loss seen at this time. Results & Data ([facility]) Vital Signs (Past 12 Hours) Vital Signs Temp Pulse Pulse Resp BP BP Pulse Ox 04/19/20 10:04 36.5 C 69 19 134/57 L 96 04/19/20 10:00 68 20 132/58 L 04/19/20 09:57 69 19 134/57 L 96 04/19/20 09:31 67 19 04/19/20 09:30 66 24 134/59 L 04/19/20 09:01 73 21 140/54 L 96 04/19/20 09:00 69 17 95 04/19/20 08:40 70 22 142/53 H 96 04/19/20 08:31 62 20 04/19/20 08:30 63 22 144/57 H 94 04/19/20 08:00 67 18 140/56 L 94 04/19/20 07:31 74 22 160/60 H 94 04/19/20 07:30 76 21 94 04/19/20 07:10 66 21 140/56 L 96 04/19/20 07:01 63 21 93 04/19/20 07:00 63 19 140/56 L 94 04/19/20 06:35 68 18 151/54 H 95 04/19/20 06:32 66 19 151/54 H 94 04/19/20 06:31 69 20 93 04/19/20 06:30 88 16 146/58 H 98 04/19/20 06:01 73 20 146/58 H 94 04/19/20 06:00 76 24 95 04/19/20 05:33 36.5 C 74 12 122/69 98 04/19/20 05:31 75 19 94 04/19/20 05:30 72 19 122/69 96 04/19/20 05:24 78 24 174/72 H 93 Diagnostic Findings atient: HALEIGH SNYDER LAdmit Date: 04/19/20 MR#: [id number]: [address] Acct ID:[id number]: [facility] Zip[facility] [place] [address] Age: 84Location: ED Sex: F Room/Bed: Att Phy:Diagnosis: Fall [place] Phy: Addison Crenshaw V., DOService Date: 04/19/20 Fam Phy:Interpreting Phy: Isai Huang MD Admit Phy: Ordering Phy: David Chisholm M.D. cc: ~ XR femur LT 2V routine CLINICAL HISTORY: left hip pain s/p fall COMPARISON: None FINDINGS: Note is made of an impacted subcapital left femoral neck fracture. No additional fractures within the left femur are noted. 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 There is no suspicious osseous lesion. There is no joint effusion. IMPRESSION: Acute impacted subcapital left femoral neck fracture. (1) Closed fracture of left hip Encounter type: initial encounter Qualified Code(s): S72.002A - Fracture of unspecified part of neck of left femur, initial encounter for closed fracture
[2020-04-19] MEDS: FLUOXETINE HCL 20 MG CAP PO SCH (12:49)
[2020-04-19] MEDS: MULTIVITAMIN TAB PO SCH (12:50)
[2020-04-19] MEDS: ATORVASTATIN 10 MG TAB PO SCH (12:50)
[2020-04-19] MEDS ORDERED: ACETAMINOPHEN 1,000 MG/100 ML VIAL IV PRN (13:44)
[2020-04-19] MEDS ORDERED: ATROPINE SULFATE 0.1 MG/ML 10ML SYR IV PRN (14:13)
[2020-04-19] MEDS ORDERED: fentaNYL citrate 100 MCG/2 ML VIAL ONE (14:13)
[2020-04-19] MEDS ORDERED: ePHEDrine sulfate 50 MG/ML AMP IV PRN (14:13)
[2020-04-19] MEDS ORDERED: HYDROmorphone INJ 2 MG/ML SYR/VIAL IV PRN (14:13)
[2020-04-19] MEDS ORDERED: fentaNYL citrate 100 MCG/2 ML VIAL IV PRN (14:13)
--- NOTE | 2020-04-19 14:13 | Anesthesiology Consultation ---
Date of Service April 19, 2020 Assessment & Plan ASA ASA3 Proposed Anesthesia Anesthesia Type: General Risk / Benefits Reviewed With: PT / POA / Parent / Guardian, Accepts Plan and Informed Consent Obtained History Surgery Operation Date: 04/19/20 10:55 Proposed Procedures p Left Hip 7.3 Cannulated Screw Open Reduction Internal Fixation - Lopez Saleem M.D. Height/Weight Height: 5 ft 8 in Weight: 84.9 kg Allergies Allergy/AdvReac Type Severity Reaction Status Date / Time Penicillins Allergy Unknown UNKNOWN Verified 04/19/20 06:00 propoxyphene Allergy Unknown UNKNOWN Verified 04/19/20 06:00 Cephalosporins AdvReac Intermediate DIZZINESS Verified 04/19/20 06:00 & NAUSEA lisinopril AdvReac Intermediate COUGH Verified 04/19/20 06:00 simvastatin AdvReac Intermediate MUSCLE PAIN Verified 04/19/20 06:00 QUININE SULFATE Allergy Unknown UNKNOWN Uncoded 04/19/20 06:00 Medications Home Medications Medication Instructions Recorded Confirmed Last Taken amlodipine 5 mg PO DAILY 04/19/20 04/19/20 Unknown aspirin 81 mg PO DAILY 04/19/20 04/19/20 Unknown atenolol 50 mg PO DAILY 04/19/20 04/19/20 Unknown atorvastatin 10 mg PO DAILY 04/19/20 04/19/20 Unknown famotidine 20 mg PO BID PRN 04/19/20 04/19/20 Unknown fluoxetine 20 mg PO DAILY 04/19/20 04/19/20 Unknown furosemide 20 mg PO DAILY 04/19/20 04/19/20 Unknown meclizine 25 mg PO TID PRN 04/19/20 04/19/20 Unknown multivitamin 1 tab PO DAILY 04/19/20 04/19/20 Unknown Active Medications Generic Name Dose Route Start Last Admin Trade Name Freq PRN Reason Stop Dose Admin Amlodipine Besylate 5 mg 04/19/20 08:25 04/19/20 10:48 Norvasc PO 05/19/20 08:24 Not Given DAILY MILLY Aspirin 81 mg 04/19/20 12:00 04/19/20 12:50 Ecotrin Ectab PO 05/19/20 11:59 Not Given DAILY MILLY Atenolol 50 mg 04/19/20 09:37 04/19/20 09:45 Tenormin PO 05/19/20 09:36 50 mg DAILY MILLY Administration Atorvastatin Calcium 10 mg 04/19/20 12:00 04/19/20 12:50 Lipitor PO 05/19/20 11:59 Not Given DAILY MILLY Fluoxetine HCl 20 mg 04/19/20 09:37 04/19/20 12:49 Prozac PO 05/19/20 09:36 Not Given DAILY MILLY Potassium Chloride 20 meq/ 1,010 mls @ 100 mls/hr 04/19/20 09:46 04/19/20 13:40 Dextrose/Sodium Chloride IV 05/19/20 09:45 0 mls/hr .[id number] MILLY Infusion Morphine Sulfate 2 mg 04/19/20 09:37 04/19/20 09:45 Morphine Sulfate IV 05/03/20 09:36 2 mg Q3H PRN Administration MODERATE Pain (Scale 4,5,6) Multivitamins 1 tab 04/19/20 12:00 04/19/20 12:50 Multivitamin Tab PO 05/19/20 11:59 Not Given DAILY MILLY NPO Date Last Intake of Fluids: 04/18/20 Time Last Intake of Fluids: 22:00 Date Last Intake of Solids: 04/18/20 Time Last Intake of Solids: 17:00 Past Medical History Medical History GERD (gastroesophageal reflux disease) HLD (hyperlipidemia) HTN (hypertension) Mood disorder Exercise / Class Metabolic Activity II 4-5 Yardwork/Stairs/Walk up hill Past Family History Family History Other Diabetes Heart disease Hypertension Past Surgical History Surgical History H/O spinal fusion Past Anesthesia History No Hx of Anesthesia Complications and No Family Hx of Anesthesia Complications History of PONV No Hx of PONV and No Hx of Motion Sickness Social History Smoking Status: Never smoker Hx Alcohol Use: No Hx Substance Use: No Review of Systems denies fever/cough/ colds/ chest pain/ SOB/ KAIA Constitutional: no fever and no chills Respiratory: no cough and no dyspnea denies KAIA Cardiovascular: no chest pain and no dyspnea on exertion Physical Exam Vital Signs Last Vital Signs Temp 37.2 C 04/19/20 13:53 Pulse 66 04/19/20 13:53 Resp 20 04/19/20 13:53 BP 146/56 H 04/19/20 13:53 Pulse Ox 96 04/19/20 13:53 ENMT Mouth: + poor dentition (multiple missing); no TMJ abnormality and no dentition abnormality Thyromental Distance: > or= 3.5 Finger Breadths Mallampati Class: II Neck neck extension not limited Respiratory normal respiratory effort; no respiratory distress Auscultation: lungs clear to auscultation bilaterally Cardiovascular Rate/Rhythm: regular rate and regular rhythm Neurologic moves all extremities Psychiatric Orientation: alert and oriented x 3 Testing Laboratory Results 04/19/20 05:45 04/19/20 06:53 PT 10.8 Seconds (9.0-12.0) 04/19/20 06:53 INR 1.0 (0.9-1.1) 04/19/20 06:53 APTT 27.8 Seconds (21.0-31.0) 04/19/20 06:53 Urine Color Yellow 04/19/20 06:10 Urine Appearance Turbid (Clear) A 04/19/20 06:10 Urine pH 5.5 (4.5-7.5) 04/19/20 06:10 Ur Specific [place] 1.020 (1.000-1.030) 04/19/20 06:10 Urine Protein 2+ (Negative) H 04/19/20 06:10 Urine Glucose (UA) Negative (Negative) 04/19/20 06:10 Urine Ketones 1+ (Negative) H 04/19/20 06:10 Urine Nitrite Positive (Negative) A 04/19/20 06:10 Ur Leukocyte Esterase 3+ (Negative) H 04/19/20 06:10 Urine WBC (Auto) >30 /hpf (0-5) H 04/19/20 06:10 Urine RBC (Auto) 5-10 /hpf (0-4) H 04/19/20 06:10 U Hyaline Cast (Auto) 1-5 /lpf (0-5) 04/19/20 06:10 U Epithel Cells (Auto) >30 /lpf (0-5) H 04/19/20 06:10 Urine Bacteria (Auto) 4+ (Negative) H 04/19/20 06:10 Blood Type B Positive 04/19/20 10:57 Antibody Screen NEGATIVE 04/19/20 10:57
[2020-04-19] MEDS ORDERED: LIDOCAINE HCL 1% 20 ML VIAL ONE (14:26)
[2020-04-19] MEDS ORDERED: BUPIVACAINE 0.5 % 5 MG/1 ML MPF 30ML VIAL ONE (14:26)
--- NOTE | 2020-04-19 14:42 | History & Physical Bridge Note ---
Date of Service April 19, 2020 History & Physical Bridge Note I have examined the patient, reviewed the History & Physical and in the interval since the performance of the History & Physical I have noted the following changes of clinical significance: no changes noted
[2020-04-19] MEDS ORDERED: CLINDAMYCIN 900 MG in DEXTROSE 5% 50 ML IV SCH (14:45)
[2020-04-19] MEDS ORDERED: ROCURONIUM BROMIDE 10 MG/ML 5 ML VIAL IV ONE (15:09)
[2020-04-19] MEDS ORDERED: LIDOCAINE HCL 2% 2 ML VIAL/AMP(20MG/ML) INFIL ONE (15:09)
[2020-04-19] MEDS ORDERED: ONDANSETRON INJ 2 MG/ML 2 ML VIAL ONE (15:09)
[2020-04-19] MEDS ORDERED: ePHEDrine sulfate 50 MG/ML SYR ONE (15:09)
[2020-04-19] MEDS ORDERED: PROPOFOL IV EMULSION 10 MG/ML 20 ML VIAL IV ONE (15:09)
[2020-04-19] MEDS ORDERED: NEOSTIGMINE METHYLSULFATE 5 MG/5 ML SYR ONE (15:38)
[2020-04-19] MEDS ORDERED: GLYCOPYRROLATE 0.2 MG/ML VIAL ONE (15:38)
--- NOTE | 2020-04-19 15:53 | Post Operative Brief Note ---
Immediate Post Op Note v1 Date of Surgery April 19, 2020 Pre & Post Diagnosis Operation Date: 04/19/20 10:55 Pre-Op Diagnosis: Left hip minimally displaced valgus impacted femoral neck fracture Post-Op Diagnosis: Left hip minimally displaced valgus impacted femoral neck fracture I identified the patient and participated in the time-out.: Yes Procedure Operation Date: 04/19/20 10:55 Actual Procedures Left hip percutaneous cannulated screw fixation of minimally displaced valgus impacted femoral neck fracture (29709) - Lopez Saleem M.D. Surgeon Lopez Saleem Station Mechanic Apprentice None Estimated Blood Loss 30 Findings Consistent with Post-Op Diagnosis Drains Pendleton Catheter
--- NOTE | 2020-04-19 15:57 | Operative Report ---
Post Operative Report Pre & Post Diagnosis Operation Date: 04/19/20 10:55 Pre-Op Diagnosis: Left hip minimally displaced valgus impacted femoral neck fracture Post-Op Diagnosis: Left hip minimally displaced valgus impacted femoral neck fracture I identified the patient and participated in the time-out.: Yes Procedure Operation Date: 04/19/20 10:55 Actual Procedures Left hip percutaneous cannulated screw fixation of minimally displaced valgus impacted femoral neck fracture ([id number]) - Lopez Saleem M.D. Surgeon Lopez Saleem Supervisor [place] None Estimated Blood Loss 30 Findings Consistent with Post-Op Diagnosis Specimens None Anesthesia Type General Complications none Disposition Disposition: Recovery Room Indications Ms. Rogers is an 84-year-old female who injured her left hip during a ground- level fall about 3 days ago. She initially did not think that she had any significant injury, but had progressing difficulty bearing weight and progressive pain. History, clinical exam, and imaging were consistent with the above diagnosis. Risks, benefits, and alternatives of surgery were explained in detail. The patient understood all this and wished to proceed. Description of Procedure Patient was identified in the preoperative holding area. Operative extremity was marked. Patient was then brought back to the operating room, and general anesthesia was induced without complication. Appropriate weight-based dose of Ancef was infused intravenously for antibiotic prophylaxis. Patient was then positioned on the fracture table with the traction apparatus. The nonoperative hip was flexed and placed into the well leg dudley. Gentle longitudinal traction was applied to the operative hip. Acceptable fracture alignment was then verified by fluoroscopic imaging. The hip was then prepped and draped in a standard sterile fashion using Chlorhexidine prep. I first planned guidewire placement by laying the guidewire on top of the hip and visualizing under fluoroscopic imaging. Once I visualized proper starting point and trajectory, I then inserted the first guidewire percutaneously through the skin and placed it against the lateral femoral cortex. Proper starting point and trajectory was verified under fluoroscopic imaging, making this first guidewire the most inferior wire in an "inverted V" configuration of the 3 cannulated screws. The guidewire was then advanced through the femoral neck and into the femoral head. Multiple AP and lateral fluoroscopic images were obtained to ensure proper guidewire position, trajectory, and depth. Once I was satisfied with the position of the first guidewire, I then made a small lateral skin incision starting from this guidewire and extending proximally. I incised through skin, subcutaneous tissue, and the iliotibial band. I then inserted the "Layne gun" targeting guide and placed another guidewire proximal and anterior, and a third guidewire proximal and posterior, both of these parallel to the first. Guidewire insertion was completed and under fluoroscopic imaging, again to verify proper position, trajectory, and depth. I then used the cannulated countersink over the inferior guidewire on the lateral femoral cortex, but planned to use washers on the more proximal screws that were in the softer metaphyseal bone. I then measured for proper screw length, starting with the most inferior screw. The lateral femoral cortex only was perforated with the cannulated drill. I then inserted an appropriate length self drilling/self- tapping 7.3 mm long-thread partially-threaded cannulated screw from the Synthes 7.3 mm cannulated screw set. This was fully inserted under fluoroscopic imaging; I ensured that the tip of the screw did not penetrate the hip joint articular surface. I then repeated this procedure for the proximal-anterior, and proximal-posterior screws; these screws were inserted over washers to prevent penetration through the lateral femoral cortex. Final fluoroscopic i maging was obtained to ensure proper screw position, trajectory, and length, with careful attention paid to ensure that none of the screws penetrated the hip joint articular surface. The wound was then copiously irrigated with sterile saline. Subcutaneous tissues closed with 3-0 Vicryl suture, and skin was closed with cally. Sterile dressings were then applied with Xeroform, sterile gauze, and foam tape. Drapes were then removed and traction apparatus was disconnected. The patient was awakened from general anesthesia, transferred over to the stretcher, and taken to the Post Anesthesia Care Unit in stable condition. There were no immediate complications from the procedure. I was present and scrubbed for the entire procedure. I attest to the content of the Intraoperative Record and any orders documented therein. Any exceptions are noted below.
--- NOTE | 2020-04-19 16:05 | Fluoroscopy Report ---
FL hip LT 2-3V CLINICAL HISTORY: Left hip pinning COMPARISON STUDY: X-ray dated 04/19/2020 FLUOROSCOPY TIME: 79 seconds. NUMBER OF FLUOROSCOPIC IMAGES: 2 FINDINGS: 2 intraoperative fluoroscopic spot images demonstrate 3 cannulated screws fixating a subcap ital left hip fracture. IMPRESSION: Internally fixated subcapital left hip fracture utilizing 3 cannulated screws ACT 112: Negative or not required by law. Electronically signed by: Jonathan Kendall M.D. 04/19/2020 4:04 PM
--- NOTE | 2020-04-19 16:35 | Anesthesiology Progress Note ---
Date of Service April 19, 2020 Anesthesia Post Procedure Vital Signs Vital Signs: Temp Pulse Pulse Pulse Resp BP BP 04/19/20 16:15 37.1 C 63 19 119/68 04/19/20 16:05 64 21 129/56 L 04/19/20 15:56 36.1 C L 68 18 133/54 L 04/19/20 13:53 37.2 C 66 20 146/56 H 04/19/20 10:04 36.5 C 69 19 134/57 L 04/19/20 10:00 68 20 132/58 L 04/19/20 09:57 69 19 134/57 L 04/19/20 09:31 67 19 04/19/20 09:30 66 24 134/59 L 04/19/20 09:01 73 21 140/54 L 04/19/20 09:00 69 17 04/19/20 08:40 70 22 142/53 H 04/19/20 08:31 62 20 04/19/20 08:30 63 22 144/57 H 04/19/20 08:00 67 18 140/56 L 04/19/20 07:31 74 22 160/60 H 04/19/20 07:30 76 21 04/19/20 07:10 66 21 140/56 L 04/19/20 07:01 63 21 04/19/20 07:00 63 19 140/56 L 04/19/20 06:35 68 18 151/54 H 04/19/20 06:32 66 19 151/54 H 04/19/20 06:31 69 20 04/19/20 06:30 88 16 146/58 H 04/19/20 06:01 73 20 146/58 H 04/19/20 06:00 76 24 04/19/20 05:33 36.5 C 74 12 122/69 04/19/20 05:31 75 19 04/19/20 05:30 72 19 122/69 04/19/20 05:24 78 24 174/72 H Pulse Ox 04/19/20 16:15 97 04/19/20 16:05 99 04/19/20 15:56 98 04/19/20 13:53 96 04/19/20 10:04 96 04/19/20 10:00 04/19/20 09:57 96 04/19/20 09:31 04/19/20 09:30 07/07/20 09:01 96 04/19/20 09:00 95 04/19/20 08:40 96 04/19/20 08:31 04/19/20 08:30 94 04/19/20 08:00 94 04/19/20 07:31 94 04/19/20 07:30 94 04/19/20 07:10 96 04/19/20 07:01 93 04/19/20 07:00 94 04/19/20 06:35 95 04/19/20 06:32 94 04/19/20 06:31 93 04/19/20 06:30 98 04/19/20 06:01 94 04/19/20 06:00 95 04/19/20 05:33 98 04/19/20 05:31 94 04/19/20 05:30 96 04/19/20 05:24 93 Pain Intensity Left Leg: Pain Intensity: 0 Transfer of Care Handoff Completed per policy Notes Mental Status: alert / awake / arousable and participated in evaluation Patient Amnestic to Procedure: Yes Nausea / Vomiting: adequately controlled Pain: adequately controlled Airway Patency, RR, SpO2: stable & adequate BP & HR: stable & adequate Hydration State: stable & adequate Anesthetic Complications: no major complications apparent and Pt Satisfied with anesthetic care
--- NOTE | 2020-04-19 16:55 | XRay Report ---
XR hip 1V LT w pelvis CLINICAL HISTORY: Postop ORIF left hip fracture COMPARISON: 04/19/2020 DISCUSSION: The patient subcapital left hip fracture has been internally fixated with 3 cannulated sc rews. There is a small amount of air within the soft tissues consistent with recent surgery. There ar e overlying skin cally. IMPRESSION: Internally fixated subcapital left hip fracture. ACT 112: Negative or not required by law. Electronically signed by: Jonathan Kendall M.D. 04/19/2020 4:54 PM
[2020-04-19] MEDS: CIPROFLOXACIN / D5W 400 MG/200 ML BAG IV SCH (19:55)
[2020-04-19] MEDS ORDERED: TRAMADOL HCL 50 MG TABLET PO PRN (20:08)
[2020-04-19] MEDS: ACETAMINOPHEN 325 MG TAB PO PRN ×2 (20:49→20:53)
[2020-04-19] MEDS: ASPIRIN 325 MG ECTAB PO SCH ×2 (20:51→20:53)
[2020-04-19] MEDS: DOCUSATE SODIUM/SENNA 50/8.6MG TAB PO SCH ×2 (20:51→20:52)
[2020-04-19] MEDS: CLINDAMYCIN 900 MG in DEXTROSE 5% 50 ML IV SCH (22:42)
[2020-04-20] MEDS: POTASSIUM CHLORIDE 20 MEQ in D5W AND 1/2NSS 1,000 ML IV SCH ×2 (00:35→10:24)
[2020-04-20] MEDS: CLINDAMYCIN 900 MG in DEXTROSE 5% 50 ML IV SCH ×2 (05:37→13:54)
[2020-04-20] MEDS ORDERED: CLINDAMYCIN PHOS 900 MG/6 ML VIAL IV SCH (06:00)
[2020-04-20] MEDS: CIPROFLOXACIN / D5W 400 MG/200 ML BAG IV SCH ×2 (06:09→20:02)
[2020-04-20 06:11] LABS: Hematocrit (blood only) 33.8 % (37-47); Hemoglobin 11.1 g/dL (12.0-16.0); Mean Corpuscular Hemoglobin 30.7 pg (25-34); Mean Corpuscular Hgb Conc 32.8 g/dL (32-36); Mean Corpuscular Volume 93.6 fL (80-100); Mean Platelet Volume 10.4 fL (7.4-10.4); Platelet Count 161 K/uL (130-400); RDW Coefficient of Variation 13.5 % (11.5-14.5); RDW Standard Deviation 46.3 fL (36.4-46.3); Red Blood Count 3.61 M/uL (4.2-5.4); White Blood Count 7.66 K/uL (4.8-10.8)
[2020-04-20 06:35] LABS: BUN Creatinine Ratio 18.1 (10-20); Calcium 8.5 mg/dl (8.5-10.1); Creatinine Clr Calc Pharmacy 48.9 ml/min; Est GFR (African American) 62.5; Est GFR (Non-African American) 53.9
--- NOTE | 2020-04-20 06:37 | Electrocardiogram Report ---
Test Reason : Blood Pressure : / mmHG Vent. Rate : 066 BPM Atrial Rate : 066 BPM P-R Int : 176 ms QRS Dur : 072 ms QT Int : 430 ms P-R-T Axes : 044 007 035 degrees QTc Int : 450 ms Normal sinus rhythm Nonspecific ST and T wave abnormality Abnormal ECG When compared with ECG of 05-APR-2018 00:48, No significant change Confirmed by Sal Rosas ([id number]) on 04/20/2020 6:36:34 AM Referred By: REFERRED SELF Confirmed By:Sal Rosas
[2020-04-20] MEDS: ATENOLOL 50 MG TABLET PO SCH (07:27)
[2020-04-20] MEDS: FLUOXETINE HCL 20 MG CAP PO SCH (07:28)
[2020-04-20] MEDS: ATORVASTATIN 10 MG TAB PO SCH (07:28)
[2020-04-20] MEDS: MULTIVITAMIN TAB PO SCH (07:28)
[2020-04-20] MEDS: AMLODIPINE BESYLATE 5 MG TAB PO SCH (07:28)
--- NOTE | 2020-04-20 08:38 | Orthopedic Progress Note ---
Date of Service April 20, 2020 Assessment & Plan (1) Closed fracture of left hip: Postop day 1 status post ORIF left subcapital hip fracture with 7.3 cannulated screws. PT/OT protocols. Toe-touch weightbearing. DVT prophylaxis-aspirin p.o. twice daily, SCDs Pain management-we will increase current p.o. pain meds. Admission and Anticipated Discharge Date Admission Date: April 19, 2020 Subjective Postop day 1 Patient is sitting up at the bedside eating her breakfast. She states she is having some pain in the hip at this time but expects that since she has just got ten up and has been moving around quite a bit. She recently had her morning pills about an hour ago. No other complaints at this time. Denies shortness of breath, chest pain, lightheadedness. Physical Exam Physical Exam: Dressings have been reinforced. She has some mild swelling of the thigh but is soft. Calves are soft nontender. Neurovascular intact. Toes are mobile. Results & Data ([facility]) Vital Signs (Past 12 Hours) Vital Signs Temp Pulse Resp BP Pulse Ox 04/20/20 07:05 37.1 C 75 16 120/55 L 91 04/20/20 02:59 36.6 C 74 16 122/66 92 04/19/20 23:06 37.1 C 71 16 116/63 91 Laboratory Results Laboratory Results WBC 7.66 K/uL (4.8-10.8) 04/20/20 05:18 RBC 3.61 M/uL (4.2-5.4) L 04/20/20 05:18 Hgb 11.1 g/dL (12.0-16.0) L 04/20/20 05:18 Hct 33.8 % (37-47) L 04/20/20 05:18 MCV 93.6 fL (80-100) 04/20/20 05:18 MCH 30.7 pg (25-34) 04/20/20 05:18 MCHC 32.8 g/dL (32-36) 04/20/20 05:18 RDW Std Deviation 46.3 fL (36.4-46.3) 04/20/20 05:18 RDW Coeff of Edison 13.5 % (11.5-14.5) 04/20/20 05:18 Plt Count 161 K/uL (130-400) 04/20/20 05:18 MPV 10.4 fL (7.4-10.4) 04/20/20 05:18 Immature Gran % (Auto) 0.2 % 04/19/20 05:45 Neut % (Auto) 68.1 % 04/19/20 05:45 Lymph % (Auto) 15.0 % 04/19/20 05:45 [place] % (Auto) 13.9 % 04/19/20 05:45 Eos % (Auto) 2.3 % 04/19/20 05:45 Baso % (Auto) 0.5 % 04/19/20 05:45 Neut # (Auto) 6.20 K/uL (1.4-6.5) 04/19/20 05:45 Lymph # (Auto) 1.37 K/uL (1.2-3.4) 04/19/20 05:45 [place] # (Auto) 1.27 K/uL (0.11-0.59) H 04/19/20 05:45 Eos # (Auto) 0.21 K/uL (0-0.5) 04/19/20 05:45 Baso # (Auto) 0.05 K/uL (0-0.2) 04/19/20 05:45 Immature Gran # (Auto) 0.02 K/uL (0.00-0.02) 04/19/20 05:45 PT 10.8 Seconds (9.0-12.0) 04/19/20 06:53 INR 1.0 (0.9-1.1) 04/19/20 06:53 APTT 27.8 Seconds (21.0-31.0) 04/19/20 06:53 PTT Ratio 1.0 04/19/20 06:53 Sodium 138 mmol/L (136-145) 04/20/20 05:18 Potassium 4.0 mmol/L (3.5-5.1) D 04/20/20 05:18 Chloride 105 mmol/L (98-107) 04/20/20 05:18 Carbon Dioxide 28 mmol/L (21-32) 04/20/20 05:18 Anion Gap 5.0 (3-11) 04/20/20 05:18 BUN 17 mg/dl (7-18) 04/20/20 05:18 Creatinine 0.96 mg/dl (0.6-1.2) 04/20/20 05:18 Est Cr Clr Drug Dosing 48.9 ml/min 04/20/20 05:18 Est GFR ( Amer) 62.5 04/20/20 05:18 Est GFR (Non-Af Amer) 53.9 04/20/20 05:18 BUN/Creatinine Ratio 18.1 (10-20) 04/20/20 05:18 Glucose 130 mg/dl (70-99) H 04/20/20 05:18 Calcium 8.5 mg/dl (8.5-10.1) 04/20/20 05:18 Magnesium 1.8 mg/dl (1.8-2.4) 04/19/20 06:53 Urine Color Yellow 04/19/20 06:10 Urine Appearance Turbid (Clear) A 04/19/20 06:10 Urine pH 5.5 (4.5-7.5) 04/19/20 06:10 Ur Specific [place] 1.020 (1.000-1.030) 04/19/20 06:10 Urine Protein 2+ (Negative) H 04/19/20 06:10 Urine Glucose (UA) Negative (Negative) 04/19/20 06:10 Urine Ketones 1+ (Negative) H 04/19/20 06:10 Urine Blood 2+ (Negative) H 04/19/20 06:10 Urine Nitrite Positive (Negative) A 04/19/20 06:10 Urine Bilirubin Negative (Negative) 04/19/20 06:10 Urine Urobilinogen Negative (Negative) 04/19/20 06:10 Ur Leukocyte Esterase 3+ (Negative) H 04/19/20 06:10 Urine WBC (Auto) >30 /hpf (0-5) H 04/19/20 06:10 Urine RBC (Auto) 5-10 /hpf (0-4) H 04/19/20 06:10 U Hyaline Cast (Auto) 1-5 /lpf (0-5) 04/19/20 06:10 U Epithel Cells (Auto) >30 /lpf (0-5) H 04/19/20 06:10 Urine Bacteria (Auto) 4+ (Negative) H 04/19/20 06:10 Urine Yeast Not Reportable 04/19/20 06:10 COVID-19 PCR NEGATIVE (Negative) 04/19/20 08:41 Blood Type B Positive 04/19/20 10:57 Antibody Screen NEGATIVE 04/19/20 10:57 (1) Closed fracture of left hip Encounter type: initial encounter Qualified Code(s): S72.002A - Fracture of unspecified part of neck of left femur, initial encounter for closed fracture
[2020-04-20] MEDS ORDERED: TRAMADOL HCL 50 MG TABLET PO PRN (08:43)
[2020-04-20] MEDS: MoRPHine SULFATE 2 MG/ML CARP IV PRN (09:47)
--- NOTE | 2020-04-20 10:25 | Hospitalist Progress Note ---
Date of Service April 20, 2020 Assessment & Plan (1) Fall: (2) Closed fracture of left hip: 84yo F with a PMH of HTN, HLD, GERD and other medical problems listed below who presents with left hip pain after fall over the weekend and was found to have acute impacted subcapital left femoral neck fracture Fell 4 days ago while ambulating without walker, presented with increased pain and difficulty with ambulation CT pelvis with acute impacted subcapital left femoral neck fracture S/p left hip cannulated screw ORIF on 04/19/20 Pain control Get PT/OT (3) Acute UTI (urinary tract infection): UA showing pyuria Urine culture - E coli Currently on cipro. Change to po Await sensitivities (4) Hypokalemia: K was repleted K is 4 this AM Discontinue IVF +KCl and monitor K (5) HTN (hypertension): Normotensive. Continue home amlodipine and atenolol (6) Mood disorder: Continue home fluoxetine (7) GERD (gastroesophageal reflux disease): Continue famotidine (8) CKD (chronic kidney disease) stage 3, GFR 30-59 ml/min: Cr is 0.96 GFR at 53.9 at baseline Avoid nephrotoxins (9) HLD (hyperlipidemia): Continue statin DVT Ppx: SCDs for today. Ambulate. Pharmacological agent if not discharged by tomorrow Code status: FULL Admission and Anticipated Discharge Date Admission Date: April 19, 2020 Subjective Patient seen and examined Sitting out in chair Reports she has been going to bathroom Reported pain was poorly controlled this AM but got some pain meds few mins ago Denied any nausea, vomiting, constipation Reports normal bowel movement Denied any urinary symptoms at this time Physical Exam Constitutional: well developed; no acute distress Eyes: PERRL, conjunctivae normal, anicteric sclerae ENMT: external ear and nose normal, oropharynx normal Respiratory: normal respiratory effort, lungs clear to auscultation Cardiovascular: RRR, S1-2, no pedal edema Gastrointestinal (Abdomen): normal bowel sounds, soft, nontender, no hepatosplenomegaly Musculoskeletal: Clean dressing over left hip Normal passive ROM No leg edema Neurologic: PERRL, EOMI, accommodation nl, no face palsy, no dysarthria Psychiatric: A+Ox3, euthymic affect Results & Data Results & Data ([facility]) Vital Signs (Past 12 Hours) Vital Signs Temp Pulse Resp BP Pulse Ox 04/20/20 07:05 37.1 C 75 16 120/55 L 91 04/20/20 02:59 36.6 C 74 16 122/66 92 04/19/20 23:06 37.1 C 71 16 116/63 91 Laboratory Results Laboratory Results - last 24 hr 04/19/20 04/20/20 04/20/20 10:57 05:18 05:18 WBC 7.66 RBC 3.61 L Hgb 11.1 L Hct 33.8 L MCV 93.6 MCH 30.7 MCHC 32.8 RDW Std Deviation 46.3 RDW Coeff of Edison 13.5 Plt Count 161 MPV 10.4 Sodium 138 Potassium 4.0 D Chloride 105 Carbon Dioxide 28 Anion Gap 5.0 BUN 17 Creatinine 0.96 Est Cr Clr Drug Dosing 48.9 Est GFR ( Amer) 62.5 Est GFR (Non-Af Amer) 53.9 BUN/Creatinine Ratio 18.1 Glucose 130 H Calcium 8.5 Blood Type B Positive Antibody Screen NEGATIVE (1) Fall Encounter type: initial encounter Qualified Code(s): W19.XXXA - Unspecified fall, initial encounter (2) Closed fracture of left hip Encounter type: initial encounter Qualified Code(s): S72.002A - Fracture of unspecified part of neck of left femur, initial encounter for closed fracture
[2020-04-20] MEDS: ASPIRIN 325 MG ECTAB PO SCH (20:03)
[2020-04-20] MEDS: ACETAMINOPHEN 325 MG TAB PO PRN (22:24)
[2020-04-21 06:22] LABS: Hematocrit (blood only) 31.8 % (37-47); Hemoglobin 10.3 g/dL (12.0-16.0); Mean Corpuscular Hemoglobin 30.1 pg (25-34); Mean Corpuscular Hgb Conc 32.4 g/dL (32-36); Mean Platelet Volume 9.8 fL (7.4-10.4); Platelet Count 164 K/uL (130-400); RDW Coefficient of Variation 13.5 % (11.5-14.5); RDW Standard Deviation 46.4 fL (36.4-46.3); Red Blood Count 3.42 M/uL (4.2-5.4); White Blood Count 7.35 K/uL (4.8-10.8)
[2020-04-21 07:09] LABS: BUN Creatinine Ratio 22.3 (10-20); Calcium 8.7 mg/dl (8.5-10.1); Est GFR (African American) 58.1; Est GFR (Non-African American) 50.1; Potassium 3.8 mmol/L (3.5-5.1)
[2020-04-21] MEDS: CIPROFLOXACIN / D5W 400 MG/200 ML BAG IV SCH (08:02)
[2020-04-21] MEDS: MULTIVITAMIN TAB PO SCH (08:18)
[2020-04-21] MEDS: ATENOLOL 50 MG TABLET PO SCH (08:18)
[2020-04-21] MEDS: ASPIRIN 325 MG ECTAB PO SCH ×2 (08:18→20:25)
[2020-04-21] MEDS: FLUOXETINE HCL 20 MG CAP PO SCH (08:19)
[2020-04-21] MEDS: ATORVASTATIN 10 MG TAB PO SCH (08:19)
[2020-04-21] MEDS: AMLODIPINE BESYLATE 5 MG TAB PO SCH (08:19)
--- NOTE | 2020-04-21 08:55 | Orthopedic Progress Note ---
Date of Service April 21, 2020 Assessment & Plan (1) Closed fracture of left hip: Postop day 2 status post ORIF left subcapital hip fracture with 7.3 cannulated screws. PT/OT protocols. Toe-touch weightbearing. DVT prophylaxis-aspirin p.o. twice daily, SCDs Pain management as written. Orthopedics will sign off at this time. Please call with any questions. Instructions placed in the EHR dc section Admission and Anticipated Discharge Date Admission Date: April 19, 2020 Subjective Postop day 2 Patient sitting up in bed awake and alert. No complaints this morning. She states her hip is feeling better today. She had a rough day yesterday after receiving some pain medication which caused her some confusion. Today she is feeling much better. Denies any shortness of breath, chest pain, lightheadedness. Physical Exam Physical Exam: Dressings removed. Incision is clean, dry, and intact. Calves are soft nontender. Neurovascular intact. Toes are mobile. Wound redressed with a 4 x 3 and Tegaderm Results & Data ([facility]) Vital Signs (Past 12 Hours) Vital Signs Temp Pulse Resp BP Pulse Ox 04/21/20 07:18 37.1 C 72 16 117/65 96 04/21/20 02:44 37.0 C 74 16 118/67 93 04/20/20 22:50 36.8 C 70 16 118/68 95 Laboratory Results Laboratory Results WBC 7.35 K/uL (4.8-10.8) 04/21/20 06:00 RBC 3.42 M/uL (4.2-5.4) L 04/21/20 06:00 Hgb 10.3 g/dL (12.0-16.0) L 04/21/20 06:00 Hct 31.8 % (37-47) L 04/21/20 06:00 MCV 93.0 fL (80-100) 04/21/20 06:00 MCH 30.1 pg (25-34) 04/21/20 06:00 MCHC 32.4 g/dL (32-36) 04/21/20 06:00 RDW Std Deviation 46.4 fL (36.4-46.3) H 04/21/20 06:00 RDW Coeff of Edison 13.5 % (11.5-14.5) 04/21/20 06:00 Plt Count 164 K/uL (130-400) 04/21/20 06:00 MPV 9.8 fL (7.4-10.4) 04/21/20 06:00 Immature Gran % (Auto) 0.2 % 04/19/20 05:45 Neut % (Auto) 68.1 % 04/19/20 05:45 Lymph % (Auto) 15.0 % 04/19/20 05:45 [place] % (Auto) 13.9 % 04/19/20 05:45 Eos % (Auto) 2.3 % 04/19/20 05:45 Baso % (Auto) 0.5 % 04/19/20 05:45 Neut # (Auto) 6.20 K/uL (1.4-6.5) 04/19/20 05:45 Lymph # (Auto) 1.37 K/uL (1.2-3.4) 04/19/20 05:45 [place] # (Auto) 1.27 K/uL (0.11-0.59) H 04/19/20 05:45 Eos # (Auto) 0.21 K/uL (0-0.5) 04/19/20 05:45 Baso # (Auto) 0.05 K/uL (0-0.2) 04/19/20 05:45 Immature Gran # (Auto) 0.02 K/uL (0.00-0.02) 04/19/20 05:45 PT 10.8 Seconds (9.0-12.0) 04/19/20 06:53 INR 1.0 (0.9-1.1) 04/19/20 06:53 APTT 27.8 Seconds (21.0-31.0) 04/19/20 06:53 PTT Ratio 1.0 04/19/20 06:53 Sodium 139 mmol/L (136-145) 04/21/20 06:00 Potassium 3.8 mmol/L (3.5-5.1) 04/21/20 06:00 Chloride 107 mmol/L (98-107) 04/21/20 06:00 Carbon Dioxide 26 mmol/L (21-32) 04/21/20 06:00 Anion Gap 6.0 (3-11) 04/21/20 06:00 BUN 23 mg/dl (7-18) H 04/21/20 06:00 Creatinine 1.02 mg/dl (0.6-1.2) 04/21/20 06:00 Est Cr Clr Drug Dosing 46.0 ml/min 04/21/20 06:00 Est GFR ( Amer) 58.1 04/21/20 06:00 Est GFR (Non-Af Amer) 50.1 04/21/20 06:00 BUN/Creatinine Ratio 22.3 (10-20) H 04/21/20 06:00 Glucose 110 mg/dl (70-99) H 04/21/20 06:00 Calcium 8.7 mg/dl (8.5-10.1) 04/21/20 06:00 Magnesium 1.8 mg/dl (1.8-2.4) 04/19/20 06:53 Urine Color Yellow 04/19/20 06:10 Urine Appearance Turbid (Clear) A 04/19/20 06:10 Urine pH 5.5 (4.5-7.5) 04/19/20 06:10 Ur Specific [place] 1.020 (1.000-1.030) 04/19/20 06:10 Urine Protein 2+ (Negative) H 04/19/20 06:10 Urine Glucose (UA) Negative (Negative) 04/19/20 06:10 Urine Ketones 1+ (Negative) H 04/19/20 06:10 Urine Blood 2+ (Negative) H 04/19/20 06:10 Urine Nitrite Positive (Negative) A 04/19/20 06:10 Urine Bilirubin Negative (Negative) 04/19/20 06:10 Urine Urobilinogen Negative (Negative) 04/19/20 06:10 Ur Leukocyte Esterase 3+ (Negative) H 04/19/20 06:10 Urine WBC (Auto) >30 /hpf (0-5) H 04/19/20 06:10 Urine RBC (Auto) 5-10 /hpf (0-4) H 04/19/20 06:10 U Hyaline Cast (Auto) 1-5 /lpf (0-5) 04/19/20 06:10 U Epithel Cells (Auto) >30 /lpf (0-5) H 04/19/20 06:10 Urine Bacteria (Auto) 4+ (Negative) H 04/19/20 06:10 Urine Yeast Not Reportable 07/07/20 06:10 COVID-19 PCR NEGATIVE (Negative) 04/19/20 08:41 Blood Type B Positive 04/19/20 10:57 Antibody Screen NEGATIVE 04/19/20 10:57 (1) Closed fracture of left hip Encounter type: initial encounter Qualified Code(s): S72.002A - Fracture of unspecified part of neck of left femur, initial encounter for closed fracture
--- NOTE | 2020-04-21 13:05 | Hospitalist Progress Note ---
Date of Service April 21, 2020 Assessment & Plan (1) Fall: (2) Closed fracture of left hip: 84yo F with a PMH of HTN, HLD, GERD and other medical problems listed below who presents with left hip pain after fall over the weekend and was found to have acute impacted subcapital left femoral neck fracture Fell 4 days before while ambulating without walker, presented with increased pain and difficulty with ambulation CT pelvis with acute impacted subcapital left femoral neck fracture S/p left hip cannulated screw ORIF on 04/19/20 Pain controlled. Avoid opioid especially IV as much as possible. Use tylenol more often for pain control PT/OT recommended rehab Hb dropped from 13 on 04/19/20 to 10 today. Per OR report, only 30cc blood loss. May be blood loss + IVF as patient has had over 4.5L fluid intake since admission Monitor Awaiting authorization for [facility] Daughter was in room. Updated her and patient (3) Acute UTI (urinary tract infection): UA showing pyuria Urine culture - E coli (johnson sensitive) Continue ciprofloxacin po to complete 5 day treatment (4) Hypokalemia: K was repleted K is 3.8 this AM (5) HTN (hypertension): Normotensive. Continue home amlodipine and atenolol (6) Mood disorder: Continue home fluoxetine (7) GERD (gastroesophageal reflux disease): Continue famotidine (8) CKD (chronic kidney disease) stage 3, GFR 30-59 ml/min: Cr is 1.02 GFR at 50.1 Avoid nephrotoxins (9) HLD (hyperlipidemia): Continue statin DVT Ppx: hep sq Code status: FULL Admission and Anticipated Discharge Date Admission Date: April 19, 2020 Subjective Patient seen and examined Had an episode of confusion after PT yesterday and getting morphine Morphine discontinued Patient reports pain in left leg is much better today Denied any fevers, chills, nausea, vomiting Denied constipation, abd pain Physical Exam Constitutional: well developed; no acute distress Eyes: PERRL, conjunctivae normal, anicteric sclerae ENMT: external ear and nose normal, oropharynx normal Respiratory: normal respiratory effort, lungs clear to auscultation Gastrointestinal (Abdomen): normal bowel sounds, soft, nontender, no hepatosplenomegaly Musculoskeletal: Clean dressing over surgical site. Normal ROM of left knee and hip Neurologic: PERRL, EOMI, accommodation nl, no face palsy, no dysarthria Psychiatric: A+Ox3, euthymic affect Results & Data Results & Data ([facility]) Vital Signs (Past 12 Hours) Vital Signs Temp Pulse Resp BP Pulse Ox 04/21/20 07:18 37.1 C 72 16 117/65 96 04/21/20 02:44 37.0 C 74 16 118/67 93 Laboratory Results Laboratory Results - last 24 hr 04/21/20 04/21/20 06:00 06:00 WBC 7.35 RBC 3.42 L Hgb 10.3 L Hct 31.8 L MCV 93.0 MCH 30.1 MCHC 32.4 RDW Std Deviation 46.4 H RDW Coeff of [place] 13.5 Plt Count 164 MPV 9.8 Sodium 139 Potassium 3.8 Chloride 107 Carbon Dioxide 26 Anion Gap 6.0 BUN 23 H Creatinine 1.02 Est Cr Clr Drug Dosing 46.0 Est GFR ( Amer) 58.1 Est GFR (Non-Af Amer) 50.1 BUN/Creatinine Ratio 22.3 H Glucose 110 H Calcium 8.7 (1) Fall Encounter type: initial encounter Qualified Code(s): W19.XXXA - Unspecified fall, initial encounter (2) Closed fracture of left hip Encounter type: initial encounter Qualified Code(s): S72.002A - Fracture of unspecified part of neck of left femur, initial encounter for closed fracture
[2020-04-21] MEDS: HEPARIN SOD 5,000 UNIT/0.5 ML VIAL SQ SCH ×2 (14:21→22:13)
[2020-04-21] MEDS: ACETAMINOPHEN 325 MG TAB PO PRN (17:00)
[2020-04-21] MEDS: CIPROFLOXACIN 500 MG TAB PO SCH (20:25)
[2020-04-21] MEDS: DOCUSATE SODIUM/SENNA 50/8.6MG TAB PO SCH (20:25)
[2020-04-22] MEDS: ACETAMINOPHEN 325 MG TAB PO PRN ×2 (02:47→13:14)
--- NOTE | 2020-04-22 04:49 | Electrocardiogram Report ---
Test Reason : Blood Pressure : / mmHG Vent. Rate : 076 BPM Atrial Rate : 076 BPM P-R Int : 196 ms QRS Dur : 072 ms QT Int : 348 ms P-R-T Axes : 065 012 053 degrees QTc Int : 391 ms Normal sinus rhythm Nonspecific T wave abnormality Abnormal ECG When compared with ECG of 19-APR-2020 07:15, QT has shortened Confirmed by Sal Rosas ([id number]) on 04/22/2020 4:49:00 AM Referred By: REFERRED SELF Confirmed By:Sal Rosas
[2020-04-22 06:04] LABS: Hematocrit (blood only) 31.7 % (37-47); Hemoglobin 10.2 g/dL (12.0-16.0); Mean Corpuscular Hgb Conc 32.2 g/dL (32-36); Mean Corpuscular Volume 93.2 fL (80-100); Mean Platelet Volume 10.8 fL (7.4-10.4); Platelet Count 163 K/uL (130-400); RDW Coefficient of Variation 13.6 % (11.5-14.5); White Blood Count 6.72 K/uL (4.8-10.8)
[2020-04-22] MEDS: HEPARIN SOD 5,000 UNIT/0.5 ML VIAL SQ SCH ×3 (06:09→21:13)
[2020-04-22 06:40] LABS: BUN Creatinine Ratio 31.6 (10-20); Calcium 8.3 mg/dl (8.5-10.1); Creatinine Clr Calc Pharmacy 56.6 ml/min; Est GFR (African American) 74.5; Est GFR (Non-African American) 64.3; Potassium 4.2 mmol/L (3.5-5.1)
[2020-04-22] MEDS: ASPIRIN 325 MG ECTAB PO SCH ×2 (08:08→21:12)
[2020-04-22] MEDS: CIPROFLOXACIN 500 MG TAB PO SCH ×2 (08:09→21:12)
[2020-04-22] MEDS: FLUOXETINE HCL 20 MG CAP PO SCH (08:09)
[2020-04-22] MEDS: MULTIVITAMIN TAB PO SCH (08:09)
[2020-04-22] MEDS: ATORVASTATIN 10 MG TAB PO SCH (08:09)
[2020-04-22] MEDS: ATENOLOL 50 MG TABLET PO SCH (08:10)
[2020-04-22] MEDS: AMLODIPINE BESYLATE 5 MG TAB PO SCH (08:10)
--- NOTE | 2020-04-22 10:59 | Hospitalist Progress Note ---
Date of Service April 22, 2020 Assessment & Plan (1) Fall: (2) Closed fracture of left hip: 84yo F with a PMH of HTN, HLD, GERD and other medical problems listed below who presents with left hip pain after fall over the weekend and was found to have acute impacted subcapital left femoral neck fracture Fell while ambulating without walker, presented with increased pain and difficulty with ambulation CT pelvis with acute impacted subcapital left femoral neck fracture S/p left hip cannulated screw ORIF on 04/19/20 Pain controlled. Avoid opioid especially IV as much as possible. Use tylenol more often for pain control PT/OT recommended rehab Hb dropped from 13 on 04/19/20 to yesterday. Per OR report, only 30cc blood loss. May be blood loss + IVF as patient has had over 4.5L fluid intake since admission Hb stable at 10 today Awaiting placement (3) Acute UTI (urinary tract infection): UA showing pyuria Urine culture - E coli (johnson sensitive) Continue ciprofloxacin po to complete 5 day treatment (4) Hypokalemia: K was repleted K is 4.2 this AM (5) HTN (hypertension): Normotensive. Continue home amlodipine and atenolol (6) Mood disorder: Continue home fluoxetine (7) GERD (gastroesophageal reflux disease): Continue famotidine (8) CKD (chronic kidney disease) stage 3, GFR 30-59 ml/min: Cr is 0.83 GFR at 56.6 Avoid nephrotoxins (9) HLD (hyperlipidemia): Continue statin DVT Ppx: hep sq Code status: FULL Admission and Anticipated Discharge Date Admission Date: April 19, 2020 Subjective Patient seen and examined Has no complaints today. Reports pain is well controlled Denied any fevers, chills, nausea, vomiting Denied constipation, abd pain Physical Exam Constitutional: well developed; no acute distress Eyes: PERRL, conjunctivae normal, anicteric sclerae ENMT: external ear and nose normal, oropharynx normal Respiratory: normal respiratory effort, lungs clear to auscultation Gastrointestinal (Abdomen): normal bowel sounds, soft, nontender, no hepatosplenomegaly Musculoskeletal: Clean dressing over surgical site. No tenderness Normal ROM Neurologic: PERRL, EOMI, accommodation nl, no face palsy, no dysarthria Psychiatric: A+Ox3, euthymic affect Results & Data Results & Data ([facility]) Vital Signs (Past 12 Hours) Vital Signs Temp Pulse Resp BP BP Pulse Ox 04/22/20 07:21 37.1 C 72 16 135/68 93 04/21/20 23:26 36.8 C 69 16 134/71 94 Laboratory Results Laboratory Results - last 24 hr 04/21/20 04/22/20 04/22/20 Unknown 05:19 05:19 WBC 6.72 RBC 3.40 L Hgb 10.2 L Hct 31.7 L MCV 93.2 MCH 30.0 MCHC 32.2 RDW Std Deviation 46.0 RDW Coeff of Edison 13.6 Plt Count 163 MPV 10.8 H Sodium 141 Potassium 4.2 Chloride 109 H Carbon Dioxide 26 Anion Gap 6.0 BUN 26 H Creatinine 0.83 Est Cr Clr Drug Dosing 56.6 Est GFR ( Amer) 74.5 Est GFR (Non-Af Amer) 64.3 BUN/Creatinine Ratio 31.6 H Glucose 98 Calcium 8.3 L 25-OH Vitamin D Total SARS-CoV-2 RNA (RT-PCR) Pending 04/22/20 08:29 WBC RBC Hgb Hct MCV MCH MCHC RDW Std Deviation RDW Coeff of Edison Plt Count MPV Sodium Potassium Chloride Carbon Dioxide Anion Gap BUN Creatinine Est Cr Clr Drug Dosing Est GFR ( Amer) Est GFR (Non-Af Amer) BUN/Creatinine Ratio Glucose Calcium 25-OH Vitamin D Total 23.6 L SARS-CoV-2 RNA (RT-PCR) (1) Fall Encounter type: initial encounter Qualified Code(s): W19.XXXA - Unspecified fall, initial encounter (2) Closed fracture of left hip Encounter type: initial encounter Qualified Code(s): S72.002A - Fracture of unspecified part of neck of left femur, initial encounter for closed fracture
[2020-04-22] MEDS: DOCUSATE SODIUM/SENNA 50/8.6MG TAB PO SCH (21:12)
[2020-04-23] MEDS: HEPARIN SOD 5,000 UNIT/0.5 ML VIAL SQ SCH (06:35)
[2020-04-23] MEDS: ACETAMINOPHEN 325 MG TAB PO PRN (07:28)
[2020-04-23] MEDS: FLUOXETINE HCL 20 MG CAP PO SCH (08:47)
[2020-04-23] MEDS: ATORVASTATIN 10 MG TAB PO SCH (08:47)
[2020-04-23] MEDS: MULTIVITAMIN TAB PO SCH (08:47)
[2020-04-23] MEDS: ASPIRIN 325 MG ECTAB PO SCH (08:47)
[2020-04-23] MEDS: CIPROFLOXACIN 500 MG TAB PO SCH (08:47)
[2020-04-23] MEDS: ATENOLOL 50 MG TABLET PO SCH (08:47)
[2020-04-23] MEDS: AMLODIPINE BESYLATE 5 MG TAB PO SCH (08:47)
--- NOTE | 2020-04-23 09:53 | Discharge Summary ---
Date of Service April 23, 2020 Admission HPI Per Admitting Provider This is an 84yo F with a PMH of HTN, HLD, GERD and other medical problems listed below who presents with left hip pain after fall over the weekend. Four days ago, patient ambulated without walker to mailbox, lost her balance and slipped on left side. Denies any loss of consciousness or head trauma. Was able to get up with assistance of other people and pain subsided. The next day, patient iced area and took Tylenol with management of symptoms the pain worsened yesterday and became more difficult to ambulate, even with assistance. Daughter encouraged patient to come to ED today for further evaluation of left hip pain. Pain is aching and constant on back of L thigh with radiation to groin. No weakness or numbness in left leg. Denies any fever, chills, cough, chest pain or shortness of breath. + increased urinary urgency the past 2 days. No known COVID exposures. Denies any nausea, vomiting, abdominal pain, dysuria, diarrhea or constipation. Lives alone in [facility] apartments with family nearby. Admission Exam Per Admitting Provider General Appearance: WD/WN, vitals as above, NAD, lying in bed, pleasant, conversing easily Head: normocephalic, atraumatic Eyes: normal inspection, PERRL, conjunctivae normal, anicteric sclerae ENT: external ear and nose normal, oropharynx normal Neck: trachea midline, no thyromegaly normal visual inspection Respiratory: normal respiratory effort, lungs clear to auscultation, no wheeze, rales, rhonchi. Normal insp/exp effort, no accessory muscle use Cardiovascular: regular rate, rhythm, no murmur, normal peripheral pulses. Vessels: no JVD or carotid bruit Chest: normal inspection of chest Abdomen/GI: normal bowel sounds, soft, nontender, no hepatosplenomegaly Extremities/Musculoskeletal: LLE TTP, most at posterior thigh, decreased ROM 2/2 pain. Distal pulses intact. No cyanosis or clubbing Neurologic: PERRL, EOMI, accommodation nl, no face palsy, no dysarthria, CN's II-XI intact bilaterally and moves all extremities Psychiatric: A+Ox3, euthymic affect Skin: no rashes, normal color, warm/dry Principal Diagnosis Closed left hip fracture S/P ORIF Pansensitive E.coli UTI Discharge Exam Constitutional well developed; no acute distress Eyes PERRL, conjunctivae normal, anicteric sclerae ENMT external ear and nose normal, oropharynx normal Respiratory normal respiratory effort, lungs clear to auscultation Gastrointestinal (Abdomen) normal bowel sounds, soft, nontender, no hepatosplenomegaly Musculoskeletal Clean dressing over left hip. Non tender Normal ROM Neurologic PERRL, EOMI, accommodation nl, no face palsy, no dysarthria Psychiatric A+Ox3, euthymic affect Discharge Data Allergies Allergy/AdvReac Type Severity Reaction Status Date / Time Penicillins Allergy Unknown UNKNOWN Verified 04/19/20 06:00 propoxyphene Allergy Unknown UNKNOWN Verified 04/19/20 06:00 Cephalosporins AdvReac Intermediate DIZZINESS Verified 04/19/20 06:00 & NAUSEA lisinopril AdvReac Intermediate COUGH Verified 04/19/20 06:00 simvastatin AdvReac Intermediate MUSCLE PAIN Verified 04/19/20 06:00 QUININE SULFATE Allergy Unknown UNKNOWN Uncoded 04/19/20 06:00 Consultations 04/19/20 06:52 ED Decision to Admit Stat 04/19/20 07:05 Consult Orthopedic Surgery Stat 04/19/20 10:46 Consult Anesthesiology Routine Consult Case Management - Discharge Planning Routine Procedures Performed Operation Date: 04/19/20 10:55 Actual Procedures p Left Hip 7.3 Cannulated Screw Open Reduction Internal Fixation(Left) - Lopez Saleem M.D. Ordered Studies 04/19/20 06:01 CT lumbar spine wo con Stat CT pelvis wo con Stat 04/19/20 06:02 CT head/brain wo con Stat 04/19/20 14:10 FL fluoroscopy <1hr Routine FL hip LT 2-3V Routine Hospital Course (1) Fall: (2) Closed fracture of left hip: 84yo F with a PMH of HTN, HLD, GERD and other medical problems listed below who presents with left hip pain after fall over the weekend and was found to have acute impacted subcapital left femoral neck fracture Fell while ambulating without walker, presented with increased pain and difficulty with ambulation CT pelvis with acute impacted subcapital left femoral neck fracture No other fractures noted on other scans as part of trauma work up S/p left hip cannulated screw ORIF on 04/19/20 Pain controlled. Avoid opioid especially as much as possible as patient had a brief episode of confusion following morphine injection for severe pain. Use tylenol more often for pain control Hb dropped from 13 on 04/19/20 to 10. Per OR report, only 30cc blood loss. May be blood loss + IVF as patient has had over 4.5L fluid intake since admission Hb stable at 10 today PT/OT recommended acute rehab. However insurance denied this. I called and did peer to peer. Insurance denied acute rehab but approved rehab in SNF. Patient and daughter stated today that they will prefer rehab at home with home health services if not acute rehab at [facility]. CM arranged home health services Patient to be discharged home Follow up ortho (3) Acute UTI (urinary tract infection): UA showing pyuria Urine culture - E coli (johnson sensitive) Continue ciprofloxacin po to complete 5 day treatment (4) Hypokalemia: K was repleted Hypokalemia resolved (5) HTN (hypertension): Normotensive. Continue home amlodipine and atenolol (6) Mood disorder: Continue home fluoxetine (7) GERD (gastroesophageal reflux disease): Continue famotidine (8) CKD (chronic kidney disease) stage 3, GFR 30-59 ml/min: Cr is 0.83 GFR at 56.6 Avoid nephrotoxins (9) HLD (hyperlipidemia): Continue statin Total Time Total Time Spent Total Time Spent (In Minutes): 40 Total Time Includes: Examination of the Patient, Discharge Planning and Medication Reconciliation Discharge Plan Discharge Items Patient Disposition: Home - Home Health Services Reason For Visit: L HIP FRACTURE Discharge Diagnosis: Closed left hip fracture S/P ORIF Pansensitive E.coli UTI Activity: As commented below Activity Comment: PER Physical therapist recommendations Weightbearing: Left toe touch Weightbearing Comment: with walker Non-emergency contact: Surgeon Call non-emergency contact if: your pain is not controlled, your temperature is above 101.5, your wound has increased redness and your wound has increased drainage Follow-up/Referrals: Addison Crenshaw DO [Primary Care Provider] - Lopez Saleem M.D. [Physician] - (Follow up for wound check in 10-14 days from the day of surgery) Keesha Ireland CRNP [Nurse Practitioner] - (follow up for osteoporosis check up in 6 weeks from the day of your surgery) Diet: Heart Healthy Addtl Attending Provider Instructions: Ms Bechdel. You had a left hip fracture after a fall. This has been repaired. You are being discharged home with home health services/PT Please follow instructions below. Please follow up with orthopedics and your Primary doctor. Use tylenol as needed for pain. Avoid opioid pain medications as much as possible. Please take the ciprofloxacin for another 2 days to complete treatment for the urinary tract infection. Please take the higher dose of aspirin 324mg twice daily as prescribed for 2 weeks, after which you can go back to taking lower dose of aspirin 81mg daily. It was a pleasure taking care of you. Addtl Auto Slip Cover Installer Provider Instructions: [facility] DISCHARGE INSTRUCTIONS: HIP FRACTURE SELF CARE INSTRUCTIONS: A. You are to ambulate with a walker or crutches for approximately 6 weeks. B. You are TOE TOUCH WEIGHT BEARING on your operative lower extremity for at least 6 weeks. C. Wear low heeled shoes with non-slip soles D. Be sure that your floors are free of things that could trip you throw rugs, electrical cords, and small objects. Avoid wet and waxed floors, especially with crutches/walker/cane. E. Try to walk several times a day with rest periods between. F. You may shower 48 hours after surgery and get the incision area wet, but DO NOT soak or submerge incision area in water. (No baths, swimming pools, hot tubs) G. You may have a large, band-aid like dressing over your incision (Aquacel). This will remain on your incision for 7 days, and then can be removed. You CAN shower with this on. If incision is leaking through the dressing, please call the office . H. Do NOT apply soap or any ointment/lotions directly over incision. I. You may use ice as needed to operative site. SPECIAL CARE INSTRUCTIONS: VERY IMPORTANT TO READ AND REVIEW A. You may be at risk for phlebitis or blood clots. a. Wear surgical stockings (LES hose) for 2 weeks after surgery to improve circulation and reduce swelling. b. Take ASPIRIN 325 mg twice daily for 4 weeks or as directed. This is your blood thinner.. B. There are a few signs you need to watch for after you are home. Call [facility] at [phone] if you experience any of the following: a. If you have a temperature of 101 degrees or higher. b. Sudden increase in pain in your hip not relieved by rest or pain medication. c. Any fluid or drainage from the incision; redness of the incision. d. Shortness of breath or chest pain. C. Call your physician if: a. Temperature is greater than 101 degrees (F). b. Pain is not relieved by prescribed pain medications. c. Increase drainage or redness from incision. d. Unanswered questions or concerns. D. Pain Medication: a. You will be prescribed pain medication upon discharge that should last till your first post-operative appointment. b. If you experience nausea and/or skin rash, discontinue this medication and contact our office for an alternative medication. c. Caution- narcotic pain medication can cause constipation. FOLLOW UP VISIT: Please call [facility] at [phone] to schedule a follow up appointment with Dr Saleem in 10-14 days from the date of your surgery date. Pending Studies at Discharge: No Stand-Alone Forms: My [facility] Tastemaker, Smoking Cessation Medications and DC Order Prescriptions: New acetaminophen 325 mg Tablet 650 mg PO Q6H PRN (Reason: pain) Qty: 50 RF: 0 aspirin [Ecotrin] 325 mg Tablet,Delayed Release (Dr/Ec) 325 mg PO BID 14 Days Qty: 28 RF: 0 ciprofloxacin HCl 500 mg tablet 500 mg PO BID 1 Days Qty: 2 RF: 0 Continued amlodipine 5 mg tablet 5 mg PO DAILY RF: 0 atenolol 50 mg tablet 50 mg PO DAILY RF: 0 atorvastatin 10 mg tablet 10 mg PO DAILY RF: 0 fluoxetine 20 mg capsule 20 mg PO DAILY RF: 0 meclizine 25 mg tablet 25 mg PO TID PRN (Reason: Dizziness) RF: 0 furosemide 20 mg tablet 20 mg PO DAILY RF: 0 famotidine 20 mg tablet 20 mg PO BID PRN (Reason: Heartburn) RF: 0 multivitamin Tablet 1 tab PO DAILY RF: 0 Discontinued aspirin 81 mg Tablet,Delayed Release (Dr/Ec) 81 mg PO DAILY RF: 0 Discharge Orders: Discharge Order (Routine); Ordered 04/23/20 Ordered By: Priya Obrien Admission Data Admit Date/Time: 04/19/20 07:55 Attending Provider: Priya Obrien I. Admit Provider: Marium Ramachandran Primary Care Provider: Addison Crenshaw V. Other Providers: Redd Man ; Werner Sorensen ; [place] ; Marium Ramachandran ; [facility] ; Willem Moreno [facility] ; [place] Other Interventions: Discharge Summary Assessment (RN) Last Done: 04/23/20 10:06 DC Date/Time DO NOT enter until pt leaves facility: 04/23/20 11:30
== END 2020-04-23 11:30 | disposition home health service (06) | DRG 481 ==
LOC: ED 05:18 → SUATTDRO 07:55 → 3N 07:55

== ENCOUNTER 2020-05-23 08:49 | Inpatient (IN) ==
[2020-05-23] MEDS ORDERED: ACETAMINOPHEN 325 MG TAB PO STA (09:43)
[2020-05-23] MEDS ORDERED: SODIUM CHLORIDE 0.9% 500 ML IV SCH (09:45)
--- NOTE | 2020-05-23 09:49 | Emergency Department Note ---
History of Present Illness General Chief complaint: Fall Time Seen by Provider: 05/23/20 09:27 Source: patient and family (Daughter who is at the bedside) Mode of arrival: EMS Limitations: no limitations History of Present Illness Maximum Pain Intensity: 7 This patient comes in after falling this morning. Her daughter came to see her as she normally does at 7:00 and found her on the floor. She had only been ther e a brief time. She says she slipped and fell against the wall. She does have some issues with balance and is some chronic vertigo. She had no syncope. No chest pain or shortness of breath or symptoms prior to falling. She had recent left hip surgery in April which is doing well now she is complaining of pain in her right hip and groin that radiates to the right knee. She also did hit her head but denies any headache or loss of consciousness. She is not on any blood thinners. She has had no covert exposure and since her surgery has basically been isolated at home. No fever or chills or flulike symptoms. No cough. Her daughter says she does tend to fall frequently due to vertigo. She has had no blood in her stool she is on iron so her stool is chronically black Home Medications Home Medications Medication Instructions Recorded Confirmed Type amlodipine 5 mg PO QAM 04/19/20 05/23/20 History atenolol 50 mg PO QAM 04/19/20 05/23/20 History atorvastatin 10 mg PO HS 04/19/20 05/23/20 History famotidine 20 mg PO BID PRN 04/19/20 05/23/20 History fluoxetine 20 mg PO QAM 04/19/20 05/23/20 History furosemide 20 mg PO DAILY PRN 04/19/20 05/23/20 History meclizine 25 mg PO TID PRN 04/19/20 05/23/20 History multivitamin 1 tab PO QAM 04/19/20 05/23/20 History acetaminophen 650 mg PO Q6H PRN #50 tab 04/22/20 05/23/20 Rx aspirin [Aspir-81] 81 mg PO BID 05/23/20 05/23/20 History calcium carbonate-vitamin D3 3 tab PO QAM 05/23/20 05/23/20 History [Calcium 500 + D] ferrous sulfate [iron] 325 mg PO DAILY PRN 05/23/20 05/23/20 History lorazepam 0.5 mg PO TID PRN 05/23/20 05/23/20 History magnesium oxide 500 mg PO DAILY PRN 05/23/20 05/23/20 History Allergies Allergy/AdvReac Type Severity Reaction Status Date / Time Penicillins Allergy Unknown UNKNOWN Verified 05/23/20 10:11 propoxyphene Allergy Unknown UNKNOWN Verified 05/23/20 10:11 morphine AdvReac Severe extreme Unverified 05/23/20 10:19 confusion Cephalosporins AdvReac Intermediate DIZZINESS Verified 05/23/20 10:11 & NAUSEA lisinopril AdvReac Intermediate COUGH Verified 05/23/20 10:11 simvastatin AdvReac Intermediate MUSCLE PAIN Verified 05/23/20 10:11 QUININE SULFATE Allergy Unknown UNKNOWN Uncoded 05/23/20 10:11 Past Med/Surg History Medical History GERD (gastroesophageal reflux disease) HLD (hyperlipidemia) HTN (hypertension) Mood disorder Surgical History H/O spinal fusion Family History Other Diabetes Heart disease Hypertension Social History Smoking Status: Never smoker Hx Alcohol Use: No Hx Substance Use: No Preferred Language: Romanian Communication Ability: Effective 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: No Beliefs That Will Affect Care: None marital status: / Current Living Situation: Alone Other Information That Helps Us Care for You: No Feels Safe at Home: Yes Safety Concerns: Feels Safe At This Time Review of Systems A total of 10 systems reviewed and were otherwise negative Physical Exam Vital Signs Vital Signs - 24 hr 05/23/20 08:56 05/23/20 09:44 05/23/20 10:41 Temperature 36.7 C Temperature Source Oral Pulse Rate 77 Pulse Rate [Apical] 84 Respiratory Rate 20 Blood Pressure 164/69 H Blood Pressure [Left Arm] 154/71 H Blood Pressure Mean 100 Blood Pressure Mean [Left Arm] 98 Pulse Oximetry 98 98 97 Oxygen Delivery Method Room Air Room Air Room Air Sepsis Recent Fever Within 48 Hours No Sepsis New/Unexplained Change in Mental Status N/A Sepsis Action Taken by Nursing No Action Required General: Well developed well nourished older female who appears in no acute dist ress, breathing comfortably on room air. Normal speech HEENT: Normal cephalic atraumatic. Pupils are equal round and reactive to light. Extraocular movements are intact. Oropharynx is pink with moist mucous membranes. No swelling of the mouth lips or tongue. Neck: Supple with a midline trachea. No meningeal signs or stiffness, no JVD or bruits. No Stridor. Chest: Clear to auscultation bilaterally. No wheezes or rhonchi. No increased work of breathing. Heart: Regular rate and rhythm without murmurs or gallops. Abdomen: Soft nontender, nondistended without rebound guarding or rigidity. No external signs of trauma Extremities: No cyanosis clubbing or edema. No calf tenderness or assymetry. She has pain in her right groin/hip when I move her hip passively. It does not appear to be shortened or rotated in the lower extremity. The knee itself is not red or warm or swollen. Spine/Back. Non tender to palpation. No CVA tenderness Skin: Good turgor without rashes. Neurologic exam: Cranial nerves two through 12 are intact. Motor and sensation are intact and symmetrical throughout. Course Administered Medications Sodium Chloride (Nss 1000ml) 1,000 mls @ 80 mls/hr IV .[id number] [facility] Stop: 05/23/20 23:44 Last Admin: 05/23/20 13:02 Dose: 80 mls/hr Documented by: [id number] Discontinued Medications Acetaminophen (Tylenol) 650 mg PO NOW STA Stop: 05/23/20 09:44 Last Admin: 05/23/20 09:56 Dose: 650 mg Documented by: [id number] Sodium Chloride (Nss) 500 mls @ 999 mls/hr IV .Q31M [facility] Stop: 05/23/20 10:15 Last Infusion: 05/23/20 10:53 Dose: 0 mls/hr Documented by: [id number] Admin: 05/23/20 09:56 Dose: 999 mls/hr Documented by: [id number] Ketorolac Tromethamine (Toradol) 30 mg IV NOW ONE Stop: 05/23/20 12:06 Last Admin: 05/23/20 12:09 Dose: 30 mg Documented by: [id number] Medical Decision Making Differential Diagnosis Hip fracture, hip dislocation, pelvic fracture, head injury, syncope, anemia, electrolyte or metabolic abnormality, arrhythmia, cardiac event, COVID Medical Records Attestation: I reviewed the patient's medical records. Home Medications Current Medication List: was personally reviewed by me Laboratory Data Attestation: I reviewed the patient's lab results. Result diagrams: 05/23/20 09:55 05/23/20 09:55 Lab Results 05/23/20 05/23/20 05/23/20 Range/Units 09:55 09:55 09:55 WBC 8.72 (4.8-10.8) K/uL RBC 4.02 L (4.2-5.4) M/uL Hgb 12.4 (12.0-16.0) g/dL Hct 37.4 (37-47) % MCV 93.0 (80-100) fL MCH 30.8 (25-34) pg MCHC 33.2 (32-36) g/dL RDW Std Deviation 45.6 (36.4-46.3) fL RDW Coeff of Edison 13.4 (11.5-14.5) % Plt Count 191 (130-400) K/uL MPV 9.6 (7.4-10.4) fL Immature Gran % (Auto) 0.2 % Neut % (Auto) 77.2 % Lymph % (Auto) 11.8 % [place] % (Auto) 9.7 % Eos % (Auto) 0.5 % Baso % (Auto) 0.6 % Neut # (Auto) 6.73 H (1.4-6.5) K/uL Lymph # (Auto) 1.03 L (1.2-3.4) K/uL [place] # (Auto) 0.85 H (0.11-0.59) K/uL Eos # (Auto) 0.04 (0-0.5) K/uL Baso # (Auto) 0.05 (0-0.2) K/uL Immature Gran # (Auto) 0.02 (0.00-0.02) K/uL Sodium 140 (136-145) mmol/L Potassium 4.0 (3.5-5.1) mmol/L Chloride 105 (98-107) mmol/L Carbon Dioxide 28 (21-32) mmol/L Anion Gap 6.0 (3-11) BUN 21 H (7-18) mg/dl Creatinine 0.84 (0.6-1.2) mg/dl Est Cr Clr Drug Dosing 55.6 ml/min Est GFR ( Amer) 73.5 Est GFR (Non-Af Amer) 63.4 BUN/Creatinine Ratio 25.4 H (10-20) Glucose 126 H (70-99) mg/dl Calcium 9.3 (8.5-10.1) mg/dl Total Bilirubin 0.4 (0.2-1) mg/dl AST 18 (15-37) U/L ALT 19 (12-78) U/L Alkaline Phosphatase 75 (45-117) U/L Total Creatine Kinase 65 (26-192) U/L Troponin I < 0.015 (0-0.045) ng/ml NT-Pro-B Natriuret Pep 393 (0-1800) pg/ml Total Protein 7.9 (6.4-8.2) gm/dl Albumin 3.6 (3.4-5.0) gm/dl Globulin 4.3 H (2.5-4.0) gm/dl Albumin/Globulin Ratio 0.8 L (0.9-2) Lipase 106 (73-393) U/L 25-OH Vitamin D Total (30-100) ng/ml Urine Color Urine Appearance (Clear) Urine pH (4.5-7.5) Ur Specific [place] (1.000-1.030) Urine Protein (Negative) Urine Glucose (UA) (Negative) Urine Ketones (Negative) Urine Blood (Negative) Urine Nitrite (Negative) Urine Bilirubin (Negative) Urine Urobilinogen (Negative) Ur Leukocyte Esterase (Negative) Urine WBC (Auto) (0-5) /hpf Urine RBC (Auto) (0-4) /hpf U Hyaline Cast (Auto) (0-5) /lpf U Epithel Cells (Auto) (0-5) /lpf Urine Bacteria (Auto) (Negative) 05/23/20 05/23/20 Range/Units 09:55 10:35 WBC (4.8-10.8) K/uL RBC (4.2-5.4) M/uL Hgb (12.0-16.0) g/dL Hct (37-47) % MCV (80-100) fL MCH (25-34) pg MCHC (32-36) g/dL RDW Std Deviation (36.4-46.3) fL RDW Coeff of Edison (11.5-14.5) % Plt Count (130-400) K/uL MPV (7.4-10.4) fL Immature Gran % (Auto) % Neut % (Auto) % Lymph % (Auto) % [place] % (Auto) % Eos % (Auto) % Baso % (Auto) % Neut # (Auto) (1.4-6.5) K/uL Lymph # (Auto) (1.2-3.4) K/uL [place] # (Auto) (0.11-0.59) K/uL Eos # (Auto) (0-0.5) K/uL Baso # (Auto) (0-0.2) K/uL Immature Gran # (Auto) (0.00-0.02) K/uL Sodium (136-145) mmol/L Potassium (3.5-5.1) mmol/L Chloride (98-107) mmol/L Carbon Dioxide (21-32) mmol/L Anion Gap (3-11) BUN (7-18) mg/dl Creatinine (0.6-1.2) mg/dl Est Cr Clr Drug Dosing ml/min Est GFR ( Amer) Est GFR (Non-Af Amer) BUN/Creatinine Ratio (10-20) Glucose (70-99) mg/dl Calcium (8.5-10.1) mg/dl Total Bilirubin (0.2-1) mg/dl AST (15-37) U/L ALT (12-78) U/L Alkaline Phosphatase (45-117) U/L Total Creatine Kinase (26-192) U/L Troponin I (0-0.045) ng/ml NT-Pro-B Natriuret Pep (0-1800) pg/ml Total Protein (6.4-8.2) gm/dl Albumin (3.4-5.0) gm/dl Globulin (2.5-4.0) gm/dl Albumin/Globulin Ratio (0.9-2) Lipase (73-393) U/L 25-OH Vitamin D Total 38.5 (30-100) ng/ml Urine Color Yellow Urine Appearance Cloudy A (Clear) Urine pH 7.5 (4.5-7.5) Ur Specific [place] 1.013 (1.000-1.030) Urine Protein Negative (Negative) Urine Glucose (UA) Negative (Negative) Urine Ketones Negative (Negative) Urine Blood Trace H (Negative) Urine Nitrite Negative (Negative) Urine Bilirubin Negative (Negative) Urine Urobilinogen Negative (Negative) Ur Leukocyte Esterase 3+ H (Negative) Urine WBC (Auto) >30 H (0-5) /hpf Urine RBC (Auto) 0-4 (0-4) /hpf U Hyaline Cast (Auto) 10-30 H (0-5) /lpf U Epithel Cells (Auto) >30 H (0-5) /lpf Urine Bacteria (Auto) 1+ H (Negative) Imaging Data Attestation: I personally reviewed and interpreted this imaging study as follows: Radiologist's Impression: XR chest 1V portable CLINICAL HISTORY: pre op COMPARISON STUDY: 04/19/2020 FINDINGS: The heart is at the upper limits of normal in size. There is a moderat e hiatal hernia. There is no failure. There is no focal pulmonary consolidation. There are no pleural effusions IMPRESSION: Moderate hiatal hernia. No acute findings. XR femur RT 2V routine CLINICAL HISTORY: fracture right hip RIGHT HIP PAIN COMPARISON: CT scan dated 05/23/2020 DISCUSSION: There is a displaced subcapital right hip fracture. No additional fractures are visualized. Degenerative changes are present within the knee. IMPRESSION: Displaced subcapital right hip fracture. CT SCAN OF THE BONY PELVIS WITHOUT IV CONTRAST CLINICAL HISTORY: Fall. COMPARISON STUDY: Pelvic CT dated 04/19/2020. Pelvic radiographs dated 04/19/2020. TECHNIQUE: CT scan of the bony pelvis is performed from the pelvic inlet to the proximal femora. Images are reviewed in the axial, sagittal, and coronal planes. IV contrast was not administered for this examination. 3-D reformats are created and assessed. A dose lowering technique was utilized adhering to the principles of ALARA. CT DOSE: 2098.36 mGy.cm FINDINGS: The skeletal structures are osteopenic. There is an impacted, mildly displaced, and angulated fracture of the right femoral neck with overlying soft tissue edema/hemorrhage. There is a subacute/healing fracture of the left femur with 3 intertrochanteric cortical lag screws in place. The bony pelvis appears intact. Moderate degenerative joint space narrowing is seen in both hips. Spondylotic and postoperative change is noted in the lower lumbar spine. Bone graft donor site is noted in the right ilium. No lytic or blastic lesion is seen. There is rectosigmoid fecal impaction. There is moderate diverticulosis of the visualized colon without CT evidence of acute diverticulitis. The bladder is distended but otherwise normal in appearance. The uterus is normal as imaged n oting gas within the endometrial canal. Surgical clips are seen in the pelvis. No adnexal lesion is seen. There is no pelvic sidewall or inguinal adenopathy. There is generalized symmetric atrophy of the regional musculature. Advanced atherosclerotic calcification is noted in the distal abdominal aorta. IMPRESSION: 1. There is an acute impacted right femoral neck fracture as above. 2. There is a subacute/healing left femoral neck fracture status post internal fixation. 3. The bony pelvis appears intact. 4. Additional findings as above. CT SCAN OF THE BRAIN WITHOUT IV CONTRAST CLINICAL HISTORY: Fall. COMPARISON STUDY: CT of the brain dated 04/19/2020. TECHNIQUE: Unenhanced axial CT scan of the brain is performed from the vertex to the skull base. A dose lowering technique was utilized adhering to the principles of ALARA. FINDINGS: Brain parenchyma: There are age-related involutional changes noting moderate to advanced confluent subcortical and periventricular microangiopathic change. There is no hemorrhage, mass effect, or evidence of acute territorial ischemia by CT criteria. Stern-white matter differentiation is preserved. No extra-axial fluid collection is seen. Ventricles, sulci, cisterns: Prominent secondary to involutional change. Intracranial vasculature: There is atherosclerotic calcification of the cavernous carotid and vertebral arteries. Calvarium: The skeletal structures are osteopenic. No depressed calvarial fracture is identified. Sinuses and mastoids: The visualized paranasal sinuses are clear. The mastoid air cells are well pneumatized. Orbits: The bony orbits are grossly intact. IMPRESSION: There is no hemorrhage, mass effect, or evidence of acute territorial ischemia by CT criteria. CT cervical spine wo con CT DOSE: HISTORY: Trauma. Pain. fall TECHNIQUE: Multiaxial CT images of the cervical spine were performed and reformatted in the sagittal and coronal plane without the use of contrast. A dose lowering technique was utilized adhering to the principles of ALARA. COMPARISON: None. FINDINGS: No fractures. No subluxation. Prevertebral soft tissues and the C1-C2 interval are intact. No pneumothorax. Generalized degenerative disc change. No evidence for compression deformity. No evidence for subluxation. IMPRESSION: 1. No acute bony abnormality. 2. Considerable degenerative disc changes throughout. ECG Data Attestation: I personally reviewed and interpreted this ECG as follows: Indication: + weakness Rate (beats per minute): 79 Rhythm: + normal sinus and + other (Poor baseline) ECG Intervals/blocks: + Normal QRS, + Normal QT and + Normal TN ECG [place]: + Normal ECG Findings: + Other (Nonspecific T wave abnormality); no PACs and no PVCs Comparison ECG Date: from (04/21/20) Change: no significant change Blood Pressure Blood Pressure Findings: Elevated blood pressure Blood Pressure Disposition: elevated BP felt to be situational MDM Narrative This patient comes in after suffered a mechanical fall. She was placed on a monitoring coordinator in room C6. She has complained of right pelvis/hip pain. She did hit her head. She has a normal neurologic exam. IV access was established and she was given Tylenol 650 mg p.o. CAT scans were obtained of the head neck and pelvis. Multiple blood testing and EKG was obtained. Her EKG does not suggest acute coronary syndrome or arrhythmia. She was reassessed frequently. I did talk to the daughter at length who is at the bedside. Although the patient did fall she did not spend a prolonged time on the ground there is nothing to suggest rhabdomyelitis is based on her history she was only on the floor for a few minutes. She has normal neurologic exam and CAT scan her head and neck do not show any traumatic injuries. Pelvis CT does reveal a right femur/hip fracture. She has no significant axillary metabolic abnormalities. She is nothing to suggest acute coronary syndrome or arrhythmia. She will need to be admitted for further management of her hip fracture. I consulted Dr. Lepe, who also asked that I talk to [employer] and I talked to Atul from [employer]. Continuous monitoring coordinator: An order was placed for continuous cardiac monitoring. She was noted to be in a normal sinus rhythm with a rate of 77 upon my interpretation Impression & Plan Closed hip fracture, Fall, CHI (closed head injury), Acute hip pain Discharge Plan Visit Data *Final* Discharge Date/Time: 05/23/20 12:16 Chief Complaint: Fall ED Provider: Germán Burroughs Discharge Problem: Closed hip fracture, Fall, CHI (closed head injury), Acute hip pain Patient Disposition: Admitted As Inpatient Discharge Instructions Interventions: ED Discharge Assessment Last Done: 05/23/20 12:16 Discharge Problem: Closed hip fracture Qualifiers: Encounter type: initial encounter Laterality: right Qualified Code(s): S72.001A - Fracture of unspecified part of neck of right femur, initial encounter for closed fracture Fall Qualifiers: Encounter type: initial encounter Qualified Code(s): W19.XXXA - Unspecified fall, initial encounter CHI (closed head injury) Qualifiers: Encounter type: initial encounter Qualified Code(s): S09.90XA - Unspecified injury of head, initial encounter Acute hip pain Qualifiers: Laterality: right Qualified Code(s): M25.551 - Pain in right hip
[2020-05-23 10:04] LABS: Basophils # (auto) 0.05 K/uL (0-0.2); Basophils % (auto) 0.6 %; Eosinophils # (auto) 0.04 K/uL (0-0.5); Eosinophils % (auto) 0.5 %; Hematocrit (blood only) 37.4 % (37-47); Hemoglobin 12.4 g/dL (12.0-16.0); Immature Granulocytes # (auto) 0.02 K/uL (0.00-0.02); Immature Granulocytes % (auto) 0.2 %; Lymphocytes # (auto) 1.03 K/uL (1.2-3.4); Lymphocytes % (auto) 11.8 %; Mean Corpuscular Hemoglobin 30.8 pg (25-34); Mean Corpuscular Hgb Conc 33.2 g/dL (32-36); Mean Platelet Volume 9.6 fL (7.4-10.4); Monocytes # (auto) 0.85 K/uL (0.11-0.59); Monocytes % (auto) 9.7 %; Neutrophils # (auto) 6.73 K/uL (1.4-6.5); Neutrophils % (auto) 77.2 %; Platelet Count 191 K/uL (130-400); RDW Coefficient of Variation 13.4 % (11.5-14.5); RDW Standard Deviation 45.6 fL (36.4-46.3); Red Blood Count 4.02 M/uL (4.2-5.4); White Blood Count 8.72 K/uL (4.8-10.8)
--- NOTE | 2020-05-23 10:16 | CT Scan Report ---
CT cervical spine wo con CT DOSE: HISTORY: Trauma. Pain. fall TECHNIQUE: Multiaxial CT images of the cervical spine were performed and reformatted in the sagittal and coronal plane without the use of contrast. A dose lowering technique was utilized adhering to th e principles of ALARA. COMPARISON: None. FINDINGS: No fractures. No subluxation. Prevertebral soft tissues and the C1-C2 interval are intact. No pneumothorax. Generalized degenerative disc change. No evidence for compression deformity. No evidence for subluxat ion. IMPRESSION: 1. No acute bony abnormality. 2. Considerable degenerative disc changes throughout. ACT 112: Negative or not required by law. The above report was generated using voice recognition software. It may contain grammatical, syntax or spelling errors. Electronically signed by: Ari Lr M.D. 05/23/2020 10:15 AM
--- NOTE | 2020-05-23 10:16 | CT Scan Report ---
CT SCAN OF THE BRAIN WITHOUT IV CONTRAST CLINICAL HISTORY: Fall. COMPARISON STUDY: CT of the brain dated 04/19/2020. TECHNIQUE: Unenhanced axial CT scan of the brain is performed from the vertex to the skull base. A do se lowering technique was utilized adhering to the principles of ALARA. FINDINGS: Brain parenchyma: There are age-related involutional changes noting moderate to advanced confluent s ubcortical and periventricular microangiopathic change. There is no hemorrhage, mass effect, or evide nce of acute territorial ischemia by CT criteria. Stern-white matter differentiation is preserved. No extra-axial fluid collection is seen. Ventricles, sulci, cisterns: Prominent secondary to involutional change. Intracranial vasculature: There is atherosclerotic calcification of the cavernous carotid and vertebr al arteries. Calvarium: The skeletal structures are osteopenic. No depressed calvarial fracture is identified. Sinuses and mastoids: The visualized paranasal sinuses are clear. The mastoid air cells are well pneu matized. Orbits: The bony orbits are grossly intact. IMPRESSION: There is no hemorrhage, mass effect, or evidence of acute territorial ischemia by CT az [place]. ACT 112: Negative or not required by law. Electronically signed by: Jim Ruff M.D. 05/23/2020 10:15 AM
[2020-05-23 10:21] LABS: Albumin Level 3.6 gm/dl (3.4-5.0); BUN Creatinine Ratio 25.4 (10-20); Blood Urea Nitrogen 21 mg/dl (7-18); Calcium 9.3 mg/dl (8.5-10.1); Carbon Dioxide 28 mmol/L (21-32); Chloride 105 mmol/L (98-107); Creatinine Clr Calc Pharmacy 55.6 ml/min; Est GFR (African American) 73.5; Est GFR (Non-African American) 63.4; Glucose 126 mg/dl (70-99); Lipase 106 U/L (73-393); Sodium 140 mmol/L (136-145)
--- NOTE | 2020-05-23 10:24 | CT Scan Report ---
CT SCAN OF THE BONY PELVIS WITHOUT IV CONTRAST CLINICAL HISTORY: Fall. COMPARISON STUDY: Pelvic CT dated 04/19/2020. Pelvic radiographs dated 04/19/2020. TECHNIQUE: CT scan of the bony pelvis is performed from the pelvic inlet to the proximal femora. Eleonora ges are reviewed in the axial, sagittal, and coronal planes. IV contrast was not administered for thi s examination. 3-D reformats are created and assessed. A dose lowering technique was utilized adheri ng to the principles of ALARA. CT DOSE: 2098.36 mGy.cm FINDINGS: The skeletal structures are osteopenic. There is an impacted, mildly displaced, and angulated fractur e of the right femoral neck with overlying soft tissue edema/hemorrhage. There is a subacute/healing fracture of the left femur with 3 intertrochanteric cortical lag screws in place. The bony pelvis remigio ears intact. Moderate degenerative joint space narrowing is seen in both hips. Spondylotic and postop erative change is noted in the lower lumbar spine. Bone graft donor site is noted in the right ilium. No lytic or blastic lesion is seen. There is rectosigmoid fecal impaction. There is moderate diverticulosis of the visualized colon witho ut CT evidence of acute diverticulitis. The bladder is distended but otherwise normal in appearance. The uterus is normal as imaged noting gas within the endometrial canal. Surgical clips are seen in th e pelvis. No adnexal lesion is seen. There is no pelvic sidewall or inguinal adenopathy. There is gen eralized symmetric atrophy of the regional musculature. Advanced atherosclerotic calcification is not ed in the distal abdominal aorta. IMPRESSION: 1. There is an acute impacted right femoral neck fracture as above. 2. There is a subacute/healing left femoral neck fracture status post internal fixation. 3. The bony pelvis appears intact. 4. Additional findings as above. ACT 112: Negative or not required by law. Electronically signed by: Jim Ruff M.D. 05/23/2020 10:23 AM
[2020-05-23 10:26] LABS: Alanine Aminotransferase 19 U/L (12-78); Albumin Globulin Ratio 0.8 (0.9-2); Alkaline Phosphatase 75 U/L (45-117); Aspartate Aminotransferase 18 U/L (15-37); Bilirubin,Total 0.4 mg/dl (0.2-1); Globulin 4.3 gm/dl (2.5-4.0); Total Protein 7.9 gm/dl (6.4-8.2); Troponin I < 0.015 ng/ml (0-0.045)
[2020-05-23 11:01] LABS: Appearance Urine Cloudy (Clear); Bacteria Urine Automated 1+ (Negative); Bilirubin Urine Negative (Negative); Blood Urine Trace (Negative); Color Urine Yellow; Epithelial Cell Urine Auto >30 /lpf (0-5); Glucose Urine UA Negative (Negative); Ketones Urine Negative (Negative); Leukocyte Esterase Urine 3+ (Negative); Nitrite Urine Negative (Negative); Protein Urine Negative (Negative); RBC Urine Automated 0-4 /hpf (0-4); Specific Gravity Urine 1.013 (1.000-1.030); Urobilinogen Urine Negative (Negative); WBC Urine Automated >30 /hpf (0-5); pH Urine 7.5 (4.5-7.5)
[2020-05-23] MEDS ORDERED: ONDANSETRON INJ 2 MG/ML 2 ML VIAL IV PRN (11:13)
[2020-05-23] MEDS ORDERED: POLYETHYLENE (MIRALAX) 17 GM PACK PO PRN (11:13)
[2020-05-23] MEDS ORDERED: MAGNESIUM HYDROXIDE SUSP 30 ML UDC PO PRN ×2 (11:13→12:47)
[2020-05-23] MEDS ORDERED: ALUMINUM/MAGNESIUM SUSP 30 ML UDC PO PRN (11:13)
[2020-05-23] MEDS ORDERED: SODIUM CHLORIDE 0.9% 1000ML 1,000 ML IV SCH (11:15)
[2020-05-23] MEDS ORDERED: KETOROLAC 30 MG/ML VIAL IV ONE (12:05)
[2020-05-23 12:09] LABS: Creatine Kinase 65 U/L (26-192); NT Pro B Type Natriuretic Pept 393 pg/ml (0-1800)
[2020-05-23] MEDS ORDERED: NALOXONE HCL 0.4 MG/1 ML VIAL/CARP IV PRN (12:47)
[2020-05-23] MEDS ORDERED: LORazepam 0.5 MG TAB PO PRN (12:47)
[2020-05-23] MEDS ORDERED: FAMOTIDINE 20 MG TAB PO PRN (12:47)
[2020-05-23] MEDS ORDERED: bisacodyL 10 MG SUPP PR PRN (12:47)
[2020-05-23] MEDS ORDERED: FUROSEMIDE 20 MG TAB PO PRN (12:47)
[2020-05-23] MEDS ORDERED: FERROUS SULFATE 325 MG TAB PO PRN (12:51)
--- NOTE | 2020-05-23 12:51 | History & Physical Report ---
Date of Service May 23, 2020 Assessment & Plan (1) Closed fracture of right hip: 1) Fall: (2) Closed fracture of right hip: This is an 84yo F with a PMH of HTN, HLD, GERD and other medical problems listed below who presents with right hip pain after fall . pt' daughter found her on floor pt reports of losing balance and falling on right side no chest pain , SOB , dizzy spell or lightheadedness before and after fall pt was admitted on 04/19/20 with fall due to loss of balance -leading to left intratrochanteric fx had ORIF Operation Date: 04/19/20 10:55 Actual Procedures Left Hip 7.3 Cannulated Screw Open Reduction Internal Fixation(Left) - Lopez Saleem M.D. pt had uncomplicated post op course was partial wt bearing on left did well in PT/OT , did not qualify for acute rehab /discharged home with home PT per pt's daughter -Pt did fairly well with therapy at home her balance been off as could not bear wt on left side -possible leading to episode of trip and fall today recent UTI : urine culture positive for johnson sensitive E coli in last admission 4 weeks back UA grossly positive in ER sample pt denies of any urinary symptom urine culture ordered empiric abx with IV cipro - (2) HTN (hypertension): continue Norvasc( amlodipine ) , Atenolol Beta viri ( atenolol ) should be given with sips of water in Am before surgery (3) Mood disorder: on SSRI fluoxetine (4) GERD (gastroesophageal reflux disease): Continue H2 viri as needed (5) HLD (hyperlipidemia): Continue statin (6) CKD STAGE 3 : cr at baseline DVT Ppx: SCDs High risk for DVT post hip surgery will need pharmacological anticoagulation //DVT prophylaxis post op follow Ortho post hip surgery protocol Code status: FULL discussed with pt and her daughter DISPOSITION ; lives at home alone recent admission with left hip fracture due to fall /acute rehab was denied post op pt went home with home physical therapy re admission with fall and right hip fracture PT/OT eval post op as per Ortho protocol will benefit with referral to acute rehab Social Service consulted plan of care updated to Pt's daughter , all questions answered pt and family agreeable and comfortable with treatment plan Admission and Anticipated Discharge Date Admission Date: May 23, 2020 History of Present Illness Chief Complaint: fall /right hip pain Primary Care Provider: Addison Crenshaw DO This is an 84yo F with a PMH of HTN, HLD, GERD and other medical problems listed below who presents with right hip pain after fall . pt' daughter found her on floor around 7 am this morning , pt reports of losing balance and falling on right side no chest pain , SOB , dizzy spell or lightheadedness before and after fall pt had recent left hip surgery on 04/22/20 -s/p fracture of left femoral head due to fall pt has been partial wt bearing on left which made her off balance , today she tripped and fell against the wall , hitting her head and right side of the hip . no report of fever or chills , no cough no known COVID 19 exposure Allergies Allergy/AdvReac Type Severity Reaction Status Date / Time Penicillins Allergy Unknown UNKNOWN Verified 05/23/20 10:11 propoxyphene Allergy Unknown UNKNOWN Verified 05/23/20 10:11 morphine AdvReac Severe extreme Unverified 05/23/20 10:19 confusion Cephalosporins AdvReac Intermediate DIZZINESS Verified 05/23/20 10:11 & NAUSEA lisinopril AdvReac Intermediate COUGH Verified 05/23/20 10:11 simvastatin AdvReac Intermediate MUSCLE PAIN Verified 05/23/20 10:11 QUININE SULFATE Allergy Unknown UNKNOWN Uncoded 05/23/20 10:11 Home Medications Home Medications Medication Instructions Recorded Confirmed Type amlodipine 5 mg PO QAM 04/19/20 05/23/20 History atenolol 50 mg PO QAM 04/19/20 05/23/20 History atorvastatin 10 mg PO HS 04/19/20 05/23/20 History famotidine 20 mg PO BID PRN 04/19/20 05/23/20 History fluoxetine 20 mg PO QAM 04/19/20 05/23/20 History furosemide 20 mg PO DAILY PRN 04/19/20 05/23/20 History meclizine 25 mg PO TID PRN 04/19/20 05/23/20 History multivitamin 1 tab PO QAM 04/19/20 05/23/20 History acetaminophen 650 mg PO Q6H PRN #50 tab 04/22/20 05/23/20 Rx aspirin [Aspir-81] 81 mg PO BID 05/23/20 05/23/20 History calcium carbonate-vitamin D3 3 tab PO QAM 05/23/20 05/23/20 History [Calcium 500 + D] ferrous sulfate [iron] 325 mg PO DAILY PRN 05/23/20 05/23/20 History lorazepam 0.5 mg PO TID PRN 05/23/20 05/23/20 History magnesium oxide 500 mg PO DAILY PRN 05/23/20 05/23/20 History Past Med/Surg History Medical History GERD (gastroesophageal reflux disease) HLD (hyperlipidemia) HTN (hypertension) Mood disorder Surgical History H/O spinal fusion Family History Other Diabetes Heart disease Hypertension Social History Smoking Status: Never smoker Hx Alcohol Use: No Hx Substance Use: No Preferred Language: Czech Communication Ability: Effective Director Phone Required: No Beliefs That Will Affect Care: None marital status: / Current Living Situation: Alone Other Information That Helps Us Care for You: No Feels Safe at Home: Yes Safety Concerns: Feels Safe At This Time Review of Systems Review of Systems: All systems reviewed & are unremarkable except as noted in HPI & below Physical Exam Constitutional: WD/WN, vitals as above no acute distress Eyes: PERRL, conjunctivae normal, anicteric sclerae ENMT: external ear and nose normal, oropharynx normal Neck: trachea midline, no thyromegaly Respiratory: normal respiratory effort, lungs clear to auscultation Cardiovascular: RRR, no murmur, no edema Gastrointestinal (Abdomen): normal bowel sounds, soft, nontender, no hepatosplenomegaly Musculoskeletal: Extremities: + limited ROM of extremities (right hip pain ) Neurologic: PERRL, EOMI, accommodation nl, no face palsy, no dysarthria Psychiatric: A+Ox3, euthymic affect Results & Data Results & Data ([facility]) Vital Signs (Past 12 Hours) Vital Signs Temp Pulse Pulse Resp BP BP Pulse Ox 05/23/20 12:00 83 18 144/82 H 97 05/23/20 10:41 84 154/71 H 97 05/23/20 09:44 98 05/23/20 08:56 36.7 C 77 20 164/69 H [address] SCAN OF THE BONY PELVIS WITHOUT IV CONTRAST 04/22/20 COMPARISON STUDY: Pelvic CT dated 04/19/2020. Pelvic radiographs dated 04/19/2020. The skeletal structures are osteopenic. There is an impacted, mildly displaced, and angulated fracture of the right femoral neck with overlying soft tissue edema/hemorrhage. There is a subacute/healing fracture of the left femur with 3 intertrochanteric cortical lag screws in place. The bony pelvis appears intact. Moderate degenerative joint space narrowing is seen in both hips. Spondylotic and postoperative change is noted in the lower lumbar spine. Bone graft donor site is noted in the right ilium. No lytic or blastic lesion is seen. There is rectosigmoid fecal impaction. There is moderate diverticulosis of the visualized colon without CT evidence of acute diverticulitis. The bladder is distended but otherwise normal in appearance. The uterus is normal as imaged noting gas within the endometrial canal. Surgical clips are seen in the pelvis. No adnexal lesion is seen. There is no pelvic sidewall or inguinal adenopathy. There is generalized symmetric atrophy of the regional musculature. Advanced atherosclerotic calcification is noted in the distal abdominal aorta. IMPRESSION: 1. There is an acute impacted right femoral neck fracture as above. 2. There is a subacute/healing left femoral neck fracture status post internal fixation. 3. The bony pelvis appears intact. 4. Additional findings as above. XR femur RT 2V routine COMPARISON: CT scan dated 05/23/2020 DISCUSSION: There is a displaced subcapital right hip fracture. No additional fractures are visualized. Degenerative changes are present within the knee. IMPRESSION: Displaced subcapital right hip fracture. CT SCAN OF BRAIN WITH OUT IV CONTRAST : IMPRESSION: There is no hemorrhage, mass effect, or evidence of acute territorial ischemia by CT criteria. (1) Closed fracture of right hip Encounter type: initial encounter Qualified Code(s): S72.001A - Fracture of unspecified part of neck of right femur, initial encounter for closed fracture
[2020-05-23] MEDS ORDERED: MAGNESIUM OXIDE 400 MG TAB PO PRN (12:53)
[2020-05-23] MEDS ORDERED: MECLIZINE HCL 25 MG TAB PO PRN (12:55)
--- NOTE | 2020-05-23 13:55 | XRay Report ---
XR femur RT 2V routine CLINICAL HISTORY: fracture right hip RIGHT HIP PAIN COMPARISON: CT scan dated 05/23/2020 DISCUSSION: There is a displaced subcapital right hip fracture. No additional fractures are visualize d. Degenerative changes are present within the knee. IMPRESSION: Displaced subcapital right hip fracture. ACT 112: Negative or not required by law. Electronically signed by: Jonathan Kendall M.D. 05/23/2020 1:54 PM
--- NOTE | 2020-05-23 14:06 | XRay Report ---
XR chest 1V portable CLINICAL HISTORY: pre op COMPARISON STUDY: 04/19/2020 FINDINGS: The heart is at the upper limits of normal in size. There is a moderate hiatal hernia. Ther e is no failure. There is no focal pulmonary consolidation. There are no pleural effusions IMPRESSION: Moderate hiatal hernia. No acute findings. ACT 112: Negative or not required by law. Electronically signed by: Jonathan Kendall M.D. 05/23/2020 2:04 PM
[2020-05-23] MEDS ORDERED: TRAMADOL HCL 50 MG TABLET PO PRN (14:35)
[2020-05-23] MEDS: ACETAMINOPHEN 325 MG TAB PO PRN (18:01)
[2020-05-23] MEDS ORDERED: HYDROmorphone INJ 0.5 MG/0.5 ML SYR IV PRN (18:03)
--- NOTE | 2020-05-23 18:13 | Communication Note ---
Date of Service: May 23, 2020 ATTENDING ADDENDUM: fracture of right hip s/p fall This is an 84yo F with a PMH of HTN, HLD, GERD and other medical problems listed below who presents with right hip pain after fall CT of pelvis :There is an impacted, mildly displaced, and angulated fracture of the right femoral neck with overlying soft tissue edema/hemorrhage -pt had similar fall leading to left hip fracture approx 4 weeks back , underwent ORIF by [facility] pt did well nia and post op hip surgery on 05/02 -Per Revised Cardiac Risk Index for Pre-Operative Risk, patient with class I risk (3.9 % 30-day risk of , MA, or cardiac arrest) acceptable risk for ORIF of right hip fracture pt has no complain of angina , no SOB , no ODELL , no fever or chills labs and images reviewed : EKG -no acute ischemic change , Cxray no acute finding ordered for NPO past midnight Ortho team updated COVID 19 test ordered for pre op Siri Lepe
--- NOTE | 2020-05-23 18:44 | Anesthesiology Consultation ---
Date of Service May 23, 2020 Assessment & Plan Chart Review Chart Review: Acceptable Risk for Surgery and Patient NOT seen in Pre Admission Testing History Surgery Operation Date: 05/24/20 14:10 Proposed Procedures p Right Bipolar Hemiarthroplasty - James Casey DO Height/Weight Height: 5 ft 8 in Weight: 84 kg Allergies Allergy/AdvReac Type Severity Reaction Status Date / Time Penicillins Allergy Unknown UNKNOWN Verified 05/23/20 10:11 propoxyphene Allergy Unknown UNKNOWN Verified 05/23/20 10:11 morphine AdvReac Severe extreme Unverified 05/23/20 10:19 confusion Cephalosporins AdvReac Intermediate DIZZINESS Verified 05/23/20 10:11 & NAUSEA lisinopril AdvReac Intermediate COUGH Verified 05/23/20 10:11 simvastatin AdvReac Intermediate MUSCLE PAIN Verified 05/23/20 10:11 QUININE SULFATE Allergy Unknown UNKNOWN Uncoded 05/23/20 10:11 Medications Home Medications Medication Instructions Recorded Confirmed Last Taken amlodipine 5 mg PO QAM 04/19/20 05/23/20 05/22/20 atenolol 50 mg PO QAM 04/19/20 05/23/20 05/22/20 atorvastatin 10 mg PO HS 04/19/20 05/23/20 05/22/20 famotidine 20 mg PO BID PRN 04/19/20 05/23/20 Unknown fluoxetine 20 mg PO QAM 04/19/20 05/23/20 05/22/20 furosemide 20 mg PO DAILY PRN 04/19/20 05/23/20 Unknown meclizine 25 mg PO TID PRN 04/19/20 05/23/20 05/20/20 multivitamin 1 tab PO QAM 04/19/20 05/23/20 05/22/20 acetaminophen 650 mg PO Q6H PRN #50 tab 04/22/20 05/23/20 Unknown aspirin [Aspir-81] 81 mg PO BID 05/23/20 05/23/20 05/22/20 calcium carbonate-vitamin D3 3 tab PO QAM 05/23/20 05/23/20 05/22/20 [Calcium 500 + D] ferrous sulfate [iron] 325 mg PO DAILY PRN 05/23/20 05/23/20 05/22/20 lorazepam 0.5 mg PO TID PRN 05/23/20 05/23/2005/23/20 magnesium oxide 500 mg PO DAILY PRN 05/23/20 05/23/20 05/22/20 Active Medications Generic Name Dose Route Start Last Admin Trade Name Moises PRN Reason Stop Dose Admin Acetaminophen 650 mg 05/23/20 11:13 05/23/20 18:01 Tylenol PO 06/22/20 11:12 650 mg Q4H PRN Administration Pain or Fever Sodium Chloride 1,000 mls @ 80 mls/hr 05/23/20 11:15 05/23/20 13:02 Nss 1000ml IV 05/23/20 23:44 80 mls/hr .[id number] MILLY Administration Past Medical History Medical History GERD (gastroesophageal reflux disease) HLD (hyperlipidemia) HTN (hypertension) Mood disorder Past Family History Family History Other Diabetes Heart disease Hypertension Past Surgical History Surgical History H/O spinal fusion Social History Smoking Status: Never smoker Hx Alcohol Use: No Hx Substance Use: No Physical Exam Vital Signs Last Vital Signs Temp 36.7 C 05/23/20 14:57 Pulse 93 H 05/23/20 17:07 Resp 18 05/23/20 14:57 BP 155/70 H 05/23/20 14:57 Pulse Ox 96 05/23/20 14:57 Testing Laboratory Results 05/23/20 09:55 05/23/20 09:55 Urine Color Yellow 05/23/20 10:35 Urine Appearance Cloudy (Clear) A 05/23/20 10:35 Urine pH 7.5 (4.5-7.5) 05/23/20 10:35 Ur Specific [place] 1.013 (1.000-1.030) 05/23/20 10:35 Urine Protein Negative (Negative) 05/23/20 10:35 Urine Glucose (UA) Negative (Negative) 05/23/20 10:35 Urine Ketones Negative (Negative) 05/23/20 10:35 Urine Nitrite Negative (Negative) 05/23/20 10:35 Ur Leukocyte Esterase 3+ (Negative) H 05/23/20 10:35 Urine WBC (Auto) >30 /hpf (0-5) H 05/23/20 10:35 Urine RBC (Auto) 0-4 /hpf (0-4) 05/23/20 10:35 U Hyaline Cast (Auto) 10-30 /lpf (0-5) H 05/23/20 10:35 U Epithel Cells (Auto) >30 /lpf (0-5) H 05/23/20 10:35 Urine Bacteria (Auto) 1+ (Negative) H 05/23/20 10:35 Blood Type B Positive 05/23/20 13:05 Antibody Screen NEGATIVE 05/23/20 13:05
[2020-05-23] MEDS: DOCUSATE SODIUM/SENNA 50/8.6MG TAB PO SCH (20:12)
[2020-05-23] MEDS: CIPROFLOXACIN / D5W 400 MG/200 ML BAG IV SCH (20:12)
--- NOTE | 2020-05-23 20:25 | Orthopedic Consultation ---
Date of Consultation May 23, 2020 Assessment & Plan (1) Closed fracture of right hip: Displaced right femoral neck fracture Plan for R hip hemiarthroplasty -NPO after midnight -IV abx orientation & mobility specialist to OR -hold anticoagulation -NWB RLE Thank you for the consultation History of Present Illness Reason for Consultation: Right hip fracture Attending Physician: Siri Lepe MD History of Present Illness The patient is a 84 year old female who presents to [facility] secondary to mechanical fall from standing height today while ambulating at home this morning. C/O acute traumatic right hip pain and inability to ambulate. XRs taken at [facility] ED demonstrated a displaced right femoral neck fracture. The patient was admitted for further treatment of her right hip fracture. Patient reports hitting head but denies LOC. Denies numbness or tingling in her RLE, denies associated injuries. Allergies Allergy/AdvReac Type Severity Reaction Status Date / Time Penicillins Allergy Unknown UNKNOWN Verified 05/23/20 10:11 propoxyphene Allergy Unknown UNKNOWN Verified 05/23/20 10:11 morphine AdvReac Severe extreme Unverified 05/23/20 10:19 confusion Cephalosporins AdvReac Intermediate DIZZINESS Verified 05/23/20 10:11 & NAUSEA lisinopril AdvReac Intermediate COUGH Verified 05/23/20 10:11 simvastatin AdvReac Intermediate MUSCLE PAIN Verified 05/23/20 10:11 QUININE SULFATE Allergy Unknown UNKNOWN Uncoded 05/23/20 10:11 Home Medications Home Medications Medication Instructions Recorded Confirmed Type amlodipine 5 mg PO QAM 04/19/20 05/23/20 History atenolol 50 mg PO QAM 04/19/20 05/23/20 History atorvastatin 10 mg PO HS 04/19/20 05/23/20 History famotidine 20 mg PO BID PRN 04/19/20 05/23/20 History fluoxetine 20 mg PO QAM 04/19/20 05/23/20 History furosemide 20 mg PO DAILY PRN 04/19/20 05/23/20 History meclizine 25 mg PO TID PRN 04/19/20 05/23/20 History multivitamin 1 tab PO QAM 04/19/20 05/23/20 History acetaminophen 650 mg PO Q6H PRN #50 tab 04/22/20 05/23/20 Rx aspirin [Aspir-81] 81 mg PO BID 05/23/20 05/23/20 History calcium carbonate-vitamin D3 3 tab PO QAM 05/23/20 05/23/20 History [Calcium 500 + D] ferrous sulfate [iron] 325 mg PO DAILY PRN 05/23/20 05/23/20 History lorazepam 0.5 mg PO TID PRN 05/23/20 05/23/20 History magnesium oxide 500 mg PO DAILY PRN 05/23/20 05/23/20 History Patient History Medical History GERD (gastroesophageal reflux disease) HLD (hyperlipidemia) HTN (hypertension) Mood disorder Surgical History H/O spinal fusion Family History Other Diabetes Heart disease Hypertension Social History Smoking Status: Never smoker Hx Alcohol Use: No Hx Substance Use: No Preferred Language: Cook Islander Communication Ability: Effective Compensator Required: No Beliefs That Will Affect Care: None marital status: / Current Living Situation: Alone Other Information That Helps Us Care for You: No Feels Safe at Home: Yes Safety Concerns: Feels Safe At This Time Review of Systems Review of Systems: All systems reviewed & are unremarkable except as noted in HPI & below Constitutional: as per Subjective / HPI Physical Exam Physical Exam: RLE NVSI +EHL/FHL/TA/GS SILT grossly, +2 DP pulse, compartments soft NT, short and externally rotated. Constitutional: WD/WN, vitals as above Results & Data ([facility]) Vital Signs (Past 12 Hours) Vital Signs Temp Pulse Pulse Pulse Resp BP BP 05/23/20 19:31 36.6 C 91 H 18 134/49 L 05/23/20 17:07 93 H 05/23/20 14:57 36.7 C 100 H 18 155/70 H 05/23/20 12:47 36.6 C 93 H 05/23/20 12:00 83 18 144/82 H 05/23/20 10:41 84 154/71 H 05/23/20 09:44 05/23/20 08:56 36.7 C 77 20 164/69 H BP Pulse Ox 05/23/20 19:31 96 05/23/20 17:07 05/23/20 14:57 96 05/23/20 12:47 162/75 H 95 05/23/20 12:00 97 05/23/20 10:41 97 05/23/20 09:44 98 05/23/20 08:[address] SCAN OF THE BONY PELVIS WITHOUT IV CONTRAST CLINICAL HISTORY: Fall. COMPARISON STUDY: Pelvic CT dated 04/19/2020. Pelvic radiographs dated 04/19/2020. TECHNIQUE: CT scan of the bony pelvis is performed from the pelvic inlet to the proximal femora. Images are reviewed in the axial, sagittal, and coronal planes. IV contrast was not administered for this examination. 3-D reformats are created and assessed. A dose lowering technique was utilized adhering to the principles of ALARA. CT DOSE: 2098.36 mGy.cm FINDINGS: The skeletal structures are osteopenic. There is an impacted, mildly displaced, and angulated fracture of the right femoral neck with overlying soft tissue edema/hemorrhage. There is a subacute/healing fracture of the left femur with 3 intertrochanteric cortical lag screws in place. The bony pelvis appears intact. Moderate degenerative joint space narrowing is seen in both hips. Spondylotic and postoperative change is noted in the lower lumbar spine. Bone graft donor site is noted in the right ilium. No lytic or blastic lesion is seen. There is rectosigmoid fecal impaction. There is moderate diverticulosis of the visualized colon without CT evidence of acute diverticulitis. The bladder is distended but otherwise normal in appearance. The uterus is normal as imaged noting gas within the endometrial canal. Surgical clips are seen in the pelvis. No adnexal lesion is seen. There is no pelvic sidewall or inguinal adenopathy. There is generalized symmetric atrophy of the regional musculature. Advanced atherosclerotic calcification is noted in the distal abdominal aorta. IMPRESSION: 1. There is an acute impacted right femoral neck fracture as above. 2. There is a subacute/healing left femoral neck fracture status post internal fixation. 3. The bony pelvis appears intact. 4. Additional findings as above. XR femur RT 2V routine CLINICAL HISTORY: fracture right hip RIGHT HIP PAIN COMPARISON: CT scan dated 05/23/2020 DISCUSSION: There is a displaced subcapital right hip fracture. No additional fractures are visualized. Degenerative changes are present within the knee. IMPRESSION: Displaced subcapital right hip fracture. (1) Closed fracture of right hip Encounter type: initial encounter Qualified Code(s): S72.001A - Fracture of unspecified part of neck of right femur, initial encounter for closed fracture
[2020-05-23] MEDS ORDERED: ACETAMINOPHEN 1000 MG/100 ML IV IV SCH (22:00)
--- NOTE | 2020-05-23 22:20 | Electrocardiogram Report ---
Test Reason : Blood Pressure : / mmHG Vent. Rate : 079 BPM Atrial Rate : 079 BPM P-R Int : 200 ms QRS Dur : 072 ms QT Int : 392 ms P-R-T Axes : 061 005 072 degrees QTc Int : 449 ms Normal sinus rhythm Premature atrial complexes Nonspecific ST and T wave abnormality Abnormal ECG When compared with ECG of 21-APR-2020 08:18, Nonspecific T wave abnormality, improved in Anterior leads QT has lengthened Confirmed by Sal Rosas ([id number]) on 05/23/2020 10:19:51 PM Referred By: Confirmed By:Sal Rosas
[2020-05-23] MEDS: ACETAMINOPHEN 1,000 MG/100 ML VIAL IV SCH (22:28)
[2020-05-24] MEDS: ACETAMINOPHEN 1,000 MG/100 ML VIAL IV SCH ×3 (05:55→22:02)
[2020-05-24 06:59] LABS: Hematocrit (blood only) 34.6 % (37-47); Hemoglobin 11.3 g/dL (12.0-16.0); Mean Corpuscular Hemoglobin 30.1 pg (25-34); Mean Corpuscular Hgb Conc 32.7 g/dL (32-36); Mean Corpuscular Volume 92.3 fL (80-100); Mean Platelet Volume 10.5 fL (7.4-10.4); Platelet Count 147 K/uL (130-400); RDW Coefficient of Variation 13.6 % (11.5-14.5); RDW Standard Deviation 46.2 fL (36.4-46.3); Red Blood Count 3.75 M/uL (4.2-5.4); White Blood Count 7.41 K/uL (4.8-10.8)
[2020-05-24] MEDS: CALCIUM 600MG + VIT D 400 IU TAB PO SCH (07:17)
[2020-05-24] MEDS: CIPROFLOXACIN / D5W 400 MG/200 ML BAG IV SCH ×2 (07:17→20:09)
[2020-05-24] MEDS: ATENOLOL 50 MG TABLET PO SCH (07:17)
[2020-05-24] MEDS: FLUOXETINE HCL 20 MG CAP PO SCH (07:17)
[2020-05-24] MEDS: MULTIVITAMIN TAB PO SCH (07:18)
[2020-05-24] MEDS: AMLODIPINE BESYLATE 5 MG TAB PO SCH (07:18)
[2020-05-24 07:36] LABS: BUN Creatinine Ratio 18.1 (10-20); Calcium 8.3 mg/dl (8.5-10.1); Creatinine Clr Calc Pharmacy 64.9 ml/min; Est GFR (African American) 88.5; Est GFR (Non-African American) 76.4
--- NOTE | 2020-05-24 08:03 | Hospitalist Progress Note ---
Date of Service May 24, 2020 Assessment & Plan (1) Closed fracture of right hip: s/p Fall at home with Acute Closed fracture of right hip: -This is an 84yo F with a PMH of HTN, HLD, GERD and other medical problems listed below who presents with right hip pain after fall on 05/23/2020. Her daughter found her on floor pt reports of losing balance and falling on right side no chest pain , SOB , dizzy spell or lightheadedness before and after fall (Patient has had prior surgeries before when she was was admitted on 04/19/20 with fall due to loss of balance -leading to left intratrochanteric fx and then had Left Hip Cannulated Screw Open Reduction Internal Fixation by Dr. Saleem on 04/19/2020, with partial weight bearing of left lower extremity and then discharged home with home physical therapy) -05/24/2020 Patient seen and examined this AM. There is IV ciprofloxacin running. Patient is very comfortably and very talkative and very pleasant. Patient denies acute pain currently of the hips. Breathing on room air. No chest pain. No palpitations. No dizziness. No nausea. Patient is currently NPO and awaiting for orthopedics to take her to operating room for right hip fracture repair -prn pain medications as needed and post-operative therapy evaluations; case management evaluation on post-hospital discharge needs Urinary Tract Infection vs urine colonization -urine culture positive for johnson sensitive E coli in April -patient denied urinary symptoms, but admission urine analysis with bacteria, admission urine culture with gram negative bacilli -continue empiric antibiotics of IV ciprofloxacin HTN (hypertension) HLD (hyperlipidemia) -continue Norvasc( amlodipine ) , Atenolol . statin Chronic Kidney Disease Stage 3 -monitor the renal function post-operatively Mood disorder -on SSRI fluoxetine GERD (gastroesophageal reflux disease) -Continue H2 viri as needed DVT Ppx: SCDs, defer to orthopedics on pharmacological anticoagulation after surgery if bleed risk is low Code status: FULL CODE My colleague Dr. Richards will be the hospitalist starting on 05/25/2020 Admission and Anticipated Discharge Date Admission Date: May 23, 2020 Subjective Patient seen and examined this AM. There is IV ciprofloxacin running. Patient is very comfortably and very talkative and very pleasant. Patient denies acute pain currently of the hips. Breathing on room air. No chest pain. No palpitations. No dizziness. No nausea. Patient is currently NPO and awaiting for orthopedics to take her to operating room for right hip fracture repair Review of Systems Review of Systems: All systems reviewed & are unremarkable except as noted in Subjective Physical Exam Constitutional: comfortable Eyes: PERRL, conjunctivae normal, anicteric sclerae EOM intact bilaterally ENMT: external ear and nose normal, oropharynx normal Neck: trachea midline, no thyromegaly normal visual inspection Respiratory: normal respiratory effort, lungs clear to auscultation Cardiovascular: Rate/Rhythm: regular rate Gastrointestinal (Abdomen): normal bowel sounds, soft, nontender, no hepatosplenomegaly Musculoskeletal: Head/Neck/Chest: normocephalic and head atraumatic Neurologic: PERRL, EOMI, accommodation nl, no face palsy, no dysarthria Psychiatric: A+Ox3, euthymic affect Results & Data Results & Data ([facility]) Vital Signs (Past 12 Hours) Vital Signs Temp Pulse Pulse Resp BP BP Pulse Ox 05/24/20 07:51 36.8 C 78 18 142/60 H 94 05/24/20 04:22 36.9 C 82 20 162/73 H 94 05/24/20 00:37 75 05/23/20 23:41 36.6 C 80 20 152/70 H 93 05/23/20 23:00 36.6 C 78 16 147/68 H 94 (1) Closed fracture of right hip Encounter type: initial encounter Qualified Code(s): S72.001A - Fracture of unspecified part of neck of right femur, initial encounter for closed fracture
--- NOTE | 2020-05-24 12:59 | History & Physical Bridge Note ---
Date of Service May 24, 2020 History & Physical Bridge Note I have examined the patient, reviewed the History & Physical and in the interval since the performance of the History & Physical I have noted the following changes of clinical significance: no changes noted
--- NOTE | 2020-05-24 12:59 | Orthopedic Progress Note ---
Date of Service May 24, 2020 Assessment & Plan (1) Closed fracture of right hip: The patient is a 84-year-old female with displaced right femoral neck fracture sustained after a fall from standing height. The patient was medically stabilized on 05/24/2020. I indicated the patient for right hip hemiarthroplasty. The patient and POA was informed of the risks and benefits of surgery, which include but not limited to infection, bleeding, blood clots, damage to nerves, vessels, bone and soft tissue, dislocation, leg length discrepancy, need for additional surgery and . The patient and POA collectively chose to move forward with surgical intervention and informed consent was obtained. Admission and Anticipated Discharge Date Admission Date: May 23, 2020 Subjective The patient was seen preoperatively, complaining of pain to her right hip. No acute issues overnight. Review of Systems Review of Systems: All systems reviewed & are unremarkable except as noted in HPI & below Constitutional: as per Subjective / HPI Results & Data ([facility]) Vital Signs (Past 12 Hours) Vital Signs Temp Pulse Resp BP BP Pulse Ox 05/24/20 12:00 36.7 C 64 18 127/60 91 05/24/20 07:51 36.8 C 78 18 142/60 H 94 05/24/20 04:22 36.9 C 82 20 162/73 H 94 (1) Closed fracture of right hip Encounter type: initial encounter Qualified Code(s): S72.001A - Fracture of unspecified part of neck of right femur, initial encounter for closed fracture
[2020-05-24] MEDS ORDERED: MIDAZOLAM HCL 1 MG/ML 2ML VIAL ONE (13:55)
[2020-05-24] MEDS ORDERED: LIDOCAINE HCL 2% 2 ML VIAL/AMP(20MG/ML) INFIL ONE (13:55)
[2020-05-24] MEDS ORDERED: fentaNYL citrate 100 MCG/2 ML VIAL ONE (13:55)
[2020-05-24] MEDS ORDERED: PROPOFOL IV EMULSION 10 MG/ML 20 ML VIAL IV ONE (13:55)
[2020-05-24] MEDS ORDERED: ONDANSETRON INJ 2 MG/ML 2 ML VIAL ONE (13:55)
[2020-05-24] MEDS ORDERED: DEXAMETHASONE SOD INJ 4 MG/ML VIAL ONE (13:55)
[2020-05-24] MEDS ORDERED: BACITRACIN INJ 50,000 UNIT VIAL ONE (15:02)
[2020-05-24] MEDS ORDERED: ORTHO JOINT ANESTHETIC ONE (15:02)
[2020-05-24] MEDS ORDERED: BUPIVACAINE 0.5 % 5 MG/1 ML PF 10ML VIAL ONE (15:06)
[2020-05-24] MEDS: CLINDAMYCIN 900 MG in DEXTROSE 5% 50 ML IV SCH ×2 (15:07→15:33)
[2020-05-24] MEDS ORDERED: ONDANSETRON INJ 2 MG/ML 2 ML VIAL IV PRN (15:19)
[2020-05-24] MEDS ORDERED: fentaNYL citrate 100 MCG/2 ML VIAL IV PRN (15:19)
[2020-05-24] MEDS ORDERED: ePHEDrine sulfate 50 MG/ML AMP IV PRN (15:19)
[2020-05-24] MEDS ORDERED: ATROPINE SULFATE 0.1 MG/ML 10ML SYR IV PRN (15:19)
[2020-05-24] MEDS ORDERED: ROPIVACAINE 0.5% HCL/PF 150 MG, BUPIVACAINE 0.5% MPF 30 ML, EPINEPHrine 30MG/30ML (OR U... INFIL SCH (16:00)
--- NOTE | 2020-05-24 17:30 | Post Operative Brief Note ---
Immediate Post Op Note v1 Date of Surgery May 24, 2020 Pre & Post Diagnosis Operation Date: 05/24/20 14:10 Pre-Op Diagnosis: Closed fracture of right hip Post-Op Diagnosis: Closed fracture of right hip I identified the patient and participated in the time-out.: Yes Procedure Operation Date: 05/24/20 14:10 Actual Procedures p Right Bipolar Hemiarthroplasty(Right) - James Casey DO Surgeon James Casey DO Escalator Service Mechanic Heath Stiles Estimated Blood Loss 90 Findings Consistent with Post-Op Diagnosis Fluids 900 cc LR Specimens femoral head Anesthesia Type General Complications none Disposition Disposition: Recovery Room Overlapping Procedure I was present for: the critical portions of procedure. I was immediately available: during the entire case. Back up surgeon: was not required during procedure.
--- NOTE | 2020-05-24 17:33 | Operative Report ---
Post Operative Report Pre & Post Diagnosis Operation Date: 05/24/20 14:10 Pre-Op Diagnosis: Closed fracture of right hip Post-Op Diagnosis: Closed fracture of right hip I identified the patient and participated in the time-out.: Yes Procedure Operation Date: 05/24/20 14:10 Actual Procedures p Right Bipolar Hemiarthroplasty(Right) - James Casey DO Surgeon James Casey DO Satin Finisher Heath Stiles Estimated Blood Loss 90 Findings Consistent with Post-Op Diagnosis Fluids 900 cc LR Specimens femoral head Anesthesia Type General Complications none Disposition Disposition: Recovery Room Indications The patient is a 84-year-old female with displaced right femoral neck fracture sustained after a fall from standing height. The patient was medically stabilized on 05/24/2020. I indicated the patient for right hip hemiarthroplasty. The patient and family was informed of the risks and benefits of surgery, which include but not limited to infection, bleeding, blood clots, damage to nerves, vessels, bone and soft tissue, dislocation, leg length discrepancy, need for additional surgery and . The patient and family collectively chose to move forward with surgical intervention and informed consent was obtained. Description of Procedure Following induction of adequate general anesthesia, the patient was transferred to the OR table and placed in the lateral decubitus position with left hip down. The right hip was prepped and draped in usual sterile manner.A timeout was performed, patient identified and site mari verified. Appropriate IV antibiotics were given. A posterior lateral incision was made. Subcutaneous tissue was sharply dissected down to the fascial layer. Electro cautery was used for hemostasis. Fascia was incised throughout the length of the wound and the piriformis was identified. A #1 Vicryl suture was used to tag the piriformis. The short external rotators were divided from the posterior aspect of the femur and a capsulotomy was performed. A second #1 Vicryl suture was used to tag the capsule. Next, I turned my attention to the femoral neck fracture. The fracture was r elatively high on the calcar and decision was made to proceed with the oscillating saw and create the calcar osteotomy. This bone fragment was removed. Following this, tenaculum and cob elevater was utilized to remove the femoral head. The head was measured on the back table and the 49 mm femoral head was chosen as the size to be used. Next, attention was turned to the acetabulum which was found to have no significant arthritis. All bony debris was removed. A sponge was placed in the acetabulum. Attention was then turned to the proximal femur where box osteotome was used to gain access to the femoral canal. A canal finder and power lateralizing reamer were utilized to further open. Sequential raspings were taken up to a size 12, which was sunk completely and trial reduction was carried out and a +3.5 mm femoral head was chosen the size to be used with the 49 bipolar cup. Following a trial reduction, the hip was found to be stable to 45 degrees of internal rotation and 90 degrees of flexion with equal leg lengths. The calcar reamer was utilized to smooth the calcar and the instruments and trial components were removed. The hip was thoroughly irrigated with pulsatile irrigation. The canal was irrigated and dried, cement restrictor was placed and [place] cement was mixed. The size 12 low demand fracture stem was placed with a 10 mm centralizer and this was held in position well. All excess cement was removed and cement hardened. Following insertion of final stem component another trial reduction was carried out and again a +3.5 neck size was chosen as the size to be used. The final head and neck was impacted into position and the hip was reduced and stability assess and was found to be stable to 45 degrees of internal rotation and 90 degrees of flexion. A 3-minute Betadine soak was performed at this time. The wound was irrigated with copious amounts of sterile saline solution with bacitracin. Ne-incisional soft tissue was injected with the [place] [employer] which includes a combination of Ropivicaine 0.5% 150mg, Bupivicaine 0.5%/Epinephrine 1:200,000 30ml, Toradol 30mg, Dexamethasone 4mg, Ketamine 10mg, Clonidine 100mcg and NSS 30ml solution. The capsule was repaired using #5 fiberwire sutures through drill holes. Following this, the short external rotators were reapproximated to the posterior aspect of the femur also through drill holes and these were tied. Once again the wound was copiously irrigated with sterile saline solution with bacitracin. Fascia was closed using #1 Vicryl [id number] sutures, subcutaneous tissue was closed using 2-0 vicryl, and skin was closed with cally. A sterile dry dressing was applied which included Silverlon. The patient tolerated the procedure well and was taken to recovery room in stable condition. Due to the complex nature of the procedure, the entire surgery was performed with the operational assistance of Heath Stiles PA-C. The public services assistant, under direct supervision, was involved in the actual performance of all aspects of the surgical procedure including patient positioning, hemostasis, tissue retraction, instrument management and wound closure. I attest to the content of the Intraoperative Record and any orders documented therein. Any exceptions are noted below.
[2020-05-24] MEDS ORDERED: NALOXONE HCL 0.4 MG/1 ML VIAL/CARP IV PRN (18:33)
--- NOTE | 2020-05-24 18:36 | Anesthesiology Progress Note ---
Date of Service May 24, 2020 Anesthesia Post Procedure Vital Signs Vital Signs: Temp Pulse Pulse Pulse Resp BP BP 05/24/20 18:30 36.4 C L 64 12 108/48 L 05/24/20 18:20 62 18 111/44 L 05/24/20 18:10 63 18 118/46 L 05/24/20 18:00 65 19 111/41 L 05/24/20 17:53 36.8 C 72 17 123/73 05/24/20 13:52 36.9 C 66 21 154/55 H 05/24/20 12:00 36.7 C 64 18 127/60 05/24/20 07:51 36.8 C 78 18 142/60 H 05/24/20 04:22 36.9 C 82 20 162/73 H 05/24/20 00:37 75 05/23/20 23:41 36.6 C 80 20 152/70 H 05/23/20 23:00 36.6 C 78 16 147/68 H 05/23/20 19:31 36.6 C 91 H 18 134/49 L Pulse Ox 05/24/20 18:30 97 05/24/20 18:20 96 05/24/20 18:10 92 05/24/20 18:00 100 05/24/20 17:53 100 05/24/20 13:52 95 05/24/20 12:00 91 05/24/20 07:51 94 05/24/20 04:22 94 05/24/20 00:37 05/23/20 23:41 93 05/23/20 23:00 94 05/23/20 19:31 96 Pain Intensity Right Hip: Pain Intensity: 0 Transfer of Care Handoff Completed per policy Notes Mental Status: alert / awake / arousable and participated in evaluation Patient Amnestic to Procedure: Yes Nausea / Vomiting: adequately controlled Pain: adequately controlled Airway Patency, RR, SpO2: stable & adequate BP & HR: stable & adequate Hydration State: stable & adequate Anesthetic Complications: no major complications apparent and Pt Satisfied with anesthetic care
--- NOTE | 2020-05-24 19:34 | Orthopedic Progress Note ---
Date of Service May 24, 2020 Assessment & Plan (1) Closed fracture of right hip: s/p R hip hemiarthrplasty -clinda x 24 -DVT ppx: SCDs, TEDs, Lovenox -WBAT RLE -Posterior hip precautions -PT/OT -PO Xr demonstrates a well aligned, well fixed prothesis without fracture/dislocation -am labs Admission and Anticipated Discharge Date Admission Date: May 23, 2020 Subjective Post Operative Progress Note Patient was seen in PACU, comfortable, denies complaints, pain well controlled, no acute issues. Review of Systems Review of Systems: All systems reviewed & are unremarkable except as noted in HPI & below Constitutional: as per Subjective / HPI Physical Exam Physical Exam: RLE NVSI +EHL/FHL/TA/GS SILT grossly, +2 DP pulse, compartments soft NT, dressing cdi. Constitutional: WD/WN, vitals as above Results & Data ([place]) Vital Signs (Past 12 Hours) Vital Signs Temp Pulse Pulse Pulse Resp BP BP 05/24/20 19:10 36.6 C 64 18 109/59 L 05/24/20 18:30 36.4 C L 64 12 108/48 L 05/24/20 18:20 62 18 111/44 L 05/24/20 18:10 63 18 118/46 L 05/24/20 18:00 65 19 111/41 L 05/24/20 17:53 36.8 C 72 17 123/73 05/24/20 13:52 36.9 C 66 21 154/55 H 05/24/20 12:00 36.7 C 64 18 127/60 05/24/20 07:51 36.8 C 78 18 142/60 H Pulse Ox 05/24/20 19:10 97 05/24/20 18:30 97 05/24/20 18:20 96 05/24/20 18:10 92 05/24/20 18:00 100 05/24/20 17:53 100 05/24/20 13:52 95 05/24/20 12:00 91 05/24/20 07:51 94 (1) Closed fracture of right hip Encounter type: initial encounter Qualified Code(s): S72.001A - Fracture of unspecified part of neck of right femur, initial encounter for closed fracture
--- NOTE | 2020-05-24 19:58 | XRay Report ---
SINGLE VIEW PELVIS; SINGLE VIEW RIGHT HIP CLINICAL HISTORY: Postoperative examination. FINDINGS: An AP portable view of the hips and pelvis with a crosstable lateral portable view of the r ight hip are obtained. There is chronic posttraumatic deformity with intertrochanteric cortical lag s crews in the left femur. A unipolar right hip arthroplasty is in near-anatomic alignment. No acute fr acture is identified. There are expected postoperative changes overlying the right hip including skin clips, subcutaneous gas, and soft tissue swelling. Sclerotic change is noted in the sacroiliac joint s. Surgical clips are seen in the pelvis. IMPRESSION: Expected postoperative findings status post right hip arthroplasty. No acute fracture is seen. ACT 112: Negative or not required by law. Electronically signed by: Jim Ruff M.D. 05/24/2020 7:57 PM
[2020-05-24] MEDS: DOCUSATE SODIUM/SENNA 50/8.6MG TAB PO SCH (20:12)
[2020-05-25] MEDS: CLINDAMYCIN 900 MG in DEXTROSE 5% 50 ML IV SCH ×2 (00:19→07:42)
[2020-05-25] MEDS: ACETAMINOPHEN 1,000 MG/100 ML VIAL IV SCH (05:38)
[2020-05-25 06:22] LABS: Basophils # (auto) 0.01 K/uL (0-0.2); Basophils % (auto) 0.1 %; Hemoglobin 10.6 g/dL (12.0-16.0); Immature Granulocytes # (auto) 0.02 K/uL (0.00-0.02); Immature Granulocytes % (auto) 0.2 %; Lymphocytes # (auto) 0.41 K/uL (1.2-3.4); Mean Corpuscular Hemoglobin 30.7 pg (25-34); Mean Corpuscular Hgb Conc 33.1 g/dL (32-36); Mean Corpuscular Volume 92.8 fL (80-100); Mean Platelet Volume 9.3 fL (7.4-10.4); Monocytes # (auto) 1.11 K/uL (0.11-0.59); Monocytes % (auto) 10.9 %; Neutrophils # (auto) 8.63 K/uL (1.4-6.5); Neutrophils % (auto) 84.8 %; Platelet Count 167 K/uL (130-400); RDW Coefficient of Variation 13.6 % (11.5-14.5); RDW Standard Deviation 46.1 fL (36.4-46.3); Red Blood Count 3.45 M/uL (4.2-5.4); White Blood Count 10.18 K/uL (4.8-10.8)
[2020-05-25 06:55] LABS: BUN Creatinine Ratio 19.4 (10-20); Calcium 8.4 mg/dl (8.5-10.1); Creatinine Clr Calc Pharmacy 48.5 ml/min; Est GFR (African American) 64.1; Est GFR (Non-African American) 55.3; Potassium 4.2 mmol/L (3.5-5.1)
--- NOTE | 2020-05-25 07:41 | Orthopedic Progress Note ---
Date of Service May 25, 2020 Assessment & Plan (1) Closed fracture of right hip: s/p R hip hemiarthroplasty POD#1 -clinda x 24 -DVT ppx: SCDs, TEDs, Lovenox -WBAT RLE -Posterior hip precautions -PT/OT -PO Xr demonstrates a well aligned, well fixed prothesis without fracture/dislocation -am labs - as above, hgb 10.6 Admission and Anticipated Discharge Date Admission Date: May 23, 2020 Subjective Post Operative Progress Note Patient was see laying in bed, comfortable, denies complaints, pain well controlled, no acute issues. Denies F/C/N/V/SOB/CP. Review of Systems Review of Systems: All systems reviewed & are unremarkable except as noted in HPI & below Constitutional: as per Subjective / HPI Physical Exam Physical Exam: RLE NVSI +EHL/FHL/TA/GS SILT grossly, +2 DP pulse, compartments soft NT, dressing cdi. Constitutional: WD/WN, vitals as above Results & Data ([facility]) Vital Signs (Past 12 Hours) Vital Signs Temp Pulse Pulse Resp BP Pulse Ox 05/25/20 07:24 83 05/25/20 06:52 36.6 C 75 19 111/64 91 05/25/20 05:05 36.7 C 74 18 106/53 L 94 05/25/20 00:55 65 05/24/20 22:08 36.7 C 67 18 105/65 97 05/24/20 21:08 36.6 C 89 18 107/55 L 90 05/24/20 20:47 63 05/24/20 20:14 36.6 C 62 18 98/40 L 96 Laboratory Results 05/25/20 05/25/20 Range/Units 06:08 06:08 WBC 10.18 (4.8-10.8) K/uL RBC 3.45 L (4.2-5.4) M/uL Hgb 10.6 L (12.0-16.0) g/dL Hct 32.0 L (37-47) % MCV 92.8 (80-100) fL MCH 30.7 (25-34) pg MCHC 33.1 (32-36) g/dL RDW Std Deviation 46.1 (36.4-46.3) fL RDW Coeff of [place] 13.6 (11.5-14.5) % Plt Count 167 (130-400) K/uL MPV 9.3 (7.4-10.4) fL Immature Gran % (Auto) 0.2 % Neut % (Auto) 84.8 % Lymph % (Auto) 4.0 % [place] % (Auto) 10.9 % Eos % (Auto) 0.0 % Baso % (Auto) 0.1 % Neut # (Auto) 8.63 H (1.4-6.5) K/uL Lymph # (Auto) 0.41 L (1.2-3.4) K/uL [place] # (Auto) 1.11 H (0.11-0.59) K/uL Eos # (Auto) 0.00 (0-0.5) K/uL Baso # (Auto) 0.01 (0-0.2) K/uL Immature Gran # (Auto) 0.02 (0.00-0.02) K/uL Sodium 140 (136-145) mmol/L Potassium 4.2 (3.5-5.1) mmol/L Chloride 107 (98-107) mmol/L Carbon Dioxide 27 (21-32) mmol/L Anion Gap 6.0 (3-11) BUN 18 (7-18) mg/dl Creatinine 0.94 (0.6-1.2) mg/dl Est Cr Clr Drug Dosing 48.5 ml/min Est GFR ( Amer) 64.1 Est GFR (Non-Af Amer) 55.3 BUN/Creatinine Ratio 19.4 (10-20) Glucose 134 H (70-99) mg/dl Calcium 8.4 L (8.5-10.1) mg/dl (1) Closed fracture of right hip Encounter type: initial encounter Qualified Code(s): S72.001A - Fracture of unspecified part of neck of right femur, initial encounter for closed fracture
[2020-05-25] MEDS: AMLODIPINE BESYLATE 5 MG TAB PO SCH (07:43)
[2020-05-25] MEDS: MULTIVITAMIN TAB PO SCH (07:43)
[2020-05-25] MEDS: CALCIUM 600MG + VIT D 400 IU TAB PO SCH (07:43)
[2020-05-25] MEDS: FLUOXETINE HCL 20 MG CAP PO SCH (07:43)
[2020-05-25] MEDS: ENOXAPARIN INJ 40 MG/0.4 ML SYR SQ SCH (07:43)
[2020-05-25] MEDS: ATENOLOL 50 MG TABLET PO SCH (07:44)
[2020-05-25] MEDS: CIPROFLOXACIN / D5W 400 MG/200 ML BAG IV SCH (08:40)
--- NOTE | 2020-05-25 13:37 | Hospitalist Progress Note ---
Date of Service May 25, 2020 Assessment & Plan (1) Closed fracture of right hip: s/p Fall at home with Acute Closed fracture of right hip: per Dr. David Delcid's notes: -This is an 84yo F with a PMH of HTN, HLD, GERD and other medical problems listed below who presents with right hip pain after fall on 05/23/2020. Her daughter found her on floor pt reports of losing balance and falling on right side no chest pain , SOB , dizzy spell or lightheadedness before and after fall (Patient has had prior surgeries before when she was was admitted on 04/19/20 with fall due to loss of balance -leading to left intratrochanteric fx and then had Left Hip Cannulated Screw Open Reduction Internal Fixation by Dr. Saleem on 04/19/2020, with partial weight bearing of left lower extremity and then discharged home with home physical therapy) - post op Day 1 - stable overall PT/OT in progress will need Rehab Urinary Tract Infection vs urine colonization - Urine Culture: (+) Klebsiella patient asymptomatic - finish 3 day course of Cipro HTN (hypertension) HLD (hyperlipidemia) - BP on the lower side, hold Amlodipine - continue Atenolol Chronic Kidney Disease Stage 3 - crea stable Mood disorder -on SSRI fluoxetine GERD (gastroesophageal reflux disease) -Continue H2 viri as needed DVT Ppx: SCDs, Lovenox Disposition: will need rehab Admission and Anticipated Discharge Date Admission Date: May 23, 2020 Subjective ff up for right hip fracture seen resting in chair, comfortable, in good spirits states she feels fine overall minimal discomfort L hip no headache, dizziness, chest pain, dyspnea, palpitations no other symptoms Review of Systems Review of Systems: All systems reviewed & are unremarkable except as noted in HPI & below Physical Exam Physical Exam: General- oriented x 3, not in distress, speaks in sentences with no effort or accessory muscle use Head- atraumatic Eyes- PERRL, EOMI, anicteric ENT- oropharynx clear Neck- supple, no JVD, no adenopathy, no thyromegaly; carotids +2/2, no bruits appreciated Lungs- clear to auscultation bilaterally, no rales/wheezes Heart- normal rate, regular rhythm; no murmur, no gallop, no rub appreciated Abdomen- normal bowel sounds, nondistended, soft, nontender, no masses or hepatosplenomegaly Extremities- no pretibial edema, no calf tenderness; peripheral pulses intact Left Hip: dressing in place, no bleeding or discharge Neuro- alert, oriented x 3; CN 2-12 grossly intact; motor 5/5 bilaterally;s ensation 100% on all extremities; no other gross focal neurologic deficits Skin- warm & dry Results & Data Results & Data ([facility]) Vital Signs (Past 12 Hours) Vital Signs Temp Pulse Pulse Resp BP Pulse Ox 05/25/20 11:35 36.4 C L 64 18 92/53 L 94 05/25/20 07:24 83 05/25/20 06:52 36.6 C 75 19 111/64 91 05/25/20 05:05 36.7 C 74 18 106/53 L 94 Laboratory Results Laboratory Results - last 24 hr 05/25/20 05/25/20 06:08 06:08 WBC 10.18 RBC 3.45 L Hgb 10.6 L Hct 32.0 L MCV 92.8 MCH 30.7 MCHC 33.1 RDW Std Deviation 46.1 RDW Coeff of [place] 13.6 Plt Count 167 MPV 9.3 Immature Gran % (Auto) 0.2 Neut % (Auto) 84.8 Lymph % (Auto) 4.0 [place] % (Auto) 10.9 Eos % (Auto) 0.0 Baso % (Auto) 0.1 Neut # (Auto) 8.63 H Lymph # (Auto) 0.41 L [place] # (Auto) 1.11 H Eos # (Auto) 0.00 Baso # (Auto) 0.01 Immature Gran # (Auto) 0.02 Sodium 140 Potassium 4.2 Chloride 107 Carbon Dioxide 27 Anion Gap 6.0 BUN 18 Creatinine 0.94 Est Cr Clr Drug Dosing 48.5 Est GFR ( Amer) 64.1 Est GFR (Non-Af Amer) 55.3 BUN/Creatinine Ratio 19.4 Glucose 134 H Calcium 8.4 L (1) Closed fracture of right hip Encounter type: initial encounter Qualified Code(s): S72.001A - Fracture of unspecified part of neck of right femur, initial encounter for closed fracture
[2020-05-25] MEDS: ACETAMINOPHEN 325 MG TAB PO PRN ×2 (14:05→20:27)
[2020-05-25] MEDS: CIPROFLOXACIN 500 MG TAB PO SCH (20:27)
[2020-05-25] MEDS: DOCUSATE SODIUM/SENNA 50/8.6MG TAB PO SCH (20:34)
--- NOTE | 2020-05-25 23:48 | Electrocardiogram Report ---
Test Reason : Blood Pressure : / mmHG Vent. Rate : 071 BPM Atrial Rate : 071 BPM P-R Int : 184 ms QRS Dur : 078 ms QT Int : 432 ms P-R-T Axes : 047 003 070 degrees QTc Int : 469 ms Normal sinus rhythm Cannot rule out Anterior infarct , age undetermined Nonspecific T wave abnormality Abnormal ECG When compared with ECG of 23-MAY-2020 08:58, Premature atrial complexes are no longer Present Confirmed by Sal Rosas ([id number]) on 05/25/2020 11:47:41 PM Referred By: REFERRED SELF Confirmed By:Sal Rosas
[2020-05-26 06:56] LABS: Basophils # (auto) 0.02 K/uL (0-0.2); Basophils % (auto) 0.2 %; Eosinophils # (auto) 0.06 K/uL (0-0.5); Eosinophils % (auto) 0.7 %; Hematocrit (blood only) 28.8 % (37-47); Hemoglobin 9.1 g/dL (12.0-16.0); Immature Granulocytes # (auto) 0.02 K/uL (0.00-0.02); Immature Granulocytes % (auto) 0.2 %; Lymphocytes # (auto) 1.01 K/uL (1.2-3.4); Mean Corpuscular Hemoglobin 28.9 pg (25-34); Mean Corpuscular Hgb Conc 31.6 g/dL (32-36); Mean Corpuscular Volume 91.4 fL (80-100); Mean Platelet Volume 9.1 fL (7.4-10.4); Monocytes # (auto) 1.24 K/uL (0.11-0.59); Monocytes % (auto) 13.5 %; Neutrophils # (auto) 6.83 K/uL (1.4-6.5); Neutrophils % (auto) 74.4 %; Platelet Count 166 K/uL (130-400); RDW Coefficient of Variation 13.7 % (11.5-14.5); RDW Standard Deviation 45.9 fL (36.4-46.3); Red Blood Count 3.15 M/uL (4.2-5.4); White Blood Count 9.18 K/uL (4.8-10.8)
[2020-05-26 07:31] LABS: Calcium 8.4 mg/dl (8.5-10.1); Creatinine Clr Calc Pharmacy 51.7 ml/min; Est GFR (African American) 69.4; Est GFR (Non-African American) 59.9
[2020-05-26] MEDS: MULTIVITAMIN TAB PO SCH (08:03)
[2020-05-26] MEDS: ENOXAPARIN INJ 40 MG/0.4 ML SYR SQ SCH (08:03)
[2020-05-26] MEDS: CIPROFLOXACIN 500 MG TAB PO SCH (08:03)
[2020-05-26] MEDS: FLUOXETINE HCL 20 MG CAP PO SCH (08:03)
[2020-05-26] MEDS: CALCIUM 600MG + VIT D 400 IU TAB PO SCH (08:03)
[2020-05-26] MEDS: ATENOLOL 50 MG TABLET PO SCH (08:03)
--- NOTE | 2020-05-26 09:04 | Orthopedic Progress Note ---
Date of Service May 26, 2020 Assessment & Plan (1) Closed fracture of right hip: s/p R hip hemiarthroplasty POD#2 -DVT ppx: SCDs, TEDs, Lovenox -WBAT RLE -Posterior hip precautions -PT/OT -am labs - as noted -dc planning - [facility] vs SNF Admission and Anticipated Discharge Date Admission Date: May 23, 2020 Supervising Physician Co-Signing Physician Notes Patient seen and examined, agree with above assessment and plan. Subjective POD 2 s/p Right Bipolar Hemiarthroplasty Awake ,alert. States she was a bit confused this AM but realized it and cleared quickly. Discussed that it is likely medications and change in where she normally sleeps etc. Pt seems to understand. Pain is controlled currently. Denies SOB,CP,LH. Physical Exam Physical Exam: Silverlon dressing C/D/I. Thigh soft, NT. NV intact. Hip appears intact. Calves soft,NT. Results & Data ([facility]) Vital Signs (Past 12 Hours) Vital Signs Temp Pulse Pulse Resp BP Pulse Ox 05/26/20 07:19 36.7 C 67 18 110/63 91 05/26/20 06:52 71 05/26/20 04:53 68 05/26/20 02:57 36.7 C 71 20 110/75 98 05/25/20 23:00 36.8 C 73 20 109/62 90 Laboratory Results Laboratory Results WBC 9.18 K/uL (4.8-10.8) 05/26/20 06:42 RBC 3.15 M/uL (4.2-5.4) L 05/26/20 06:42 Hgb 9.1 g/dL (12.0-16.0) L 05/26/20 06:42 Hct 28.8 % (37-47) L 05/26/20 06:42 MCV 91.4 fL (80-100) 05/26/20 06:42 MCH 28.9 pg (25-34) 05/26/20 06:42 MCHC 31.6 g/dL (32-36) L 05/26/20 06:42 RDW Std Deviation 45.9 fL (36.4-46.3) 05/26/20 06:42 RDW Coeff of [place] 13.7 % (11.5-14.5) 05/26/20 06:42 Plt Count 166 K/uL (130-400) 05/26/20 06:42 MPV 9.1 fL (7.4-10.4) 05/26/20 06:42 Immature Gran % (Auto) 0.2 % 05/26/20 06:42 Neut % (Auto) 74.4 % 05/26/20 06:42 Lymph % (Auto) 11.0 % 05/26/20 06:42 [place] % (Auto) 13.5 % 05/26/20 06:42 Eos % (Auto) 0.7 % 05/26/20 06:42 Baso % (Auto) 0.2 % 05/26/20 06:42 Neut # (Auto) 6.83 K/uL (1.4-6.5) H 05/26/20 06:42 Lymph # (Auto) 1.01 K/uL (1.2-3.4) L 05/26/20 06:42 [place] # (Auto) 1.24 K/uL (0.11-0.59) H 05/26/20 06:42 Eos # (Auto) 0.06 K/uL (0-0.5) 05/26/20 06:42 Baso # (Auto) 0.02 K/uL (0-0.2) 05/26/20 06:42 Immature Gran # (Auto) 0.02 K/uL (0.00-0.02) 05/26/20 06:42 Sodium 140 mmol/L (136-145) 05/26/20 06:42 Potassium 4.0 mmol/L (3.5-5.1) 05/26/20 06:42 Chloride 107 mmol/L (98-107) 05/26/20 06:42 Carbon Dioxide 26 mmol/L (21-32) 05/26/20 06:42 Anion Gap 7.0 (3-11) 05/26/20 06:42 BUN 22 mg/dl (7-18) H 05/26/20 06:42 Creatinine 0.88 mg/dl (0.6-1.2) 05/26/20 06:42 Est Cr Clr Drug Dosing 51.7 ml/min 05/26/20 06:42 Est GFR ( Amer) 69.4 05/26/20 06:42 Est GFR (Non-Af Amer) 59.9 08/13/20 06:42 BUN/Creatinine Ratio 25.0 (10-20) H 05/26/20 06:42 Glucose 112 mg/dl (70-99) H 05/26/20 06:42 Calcium 8.4 mg/dl (8.5-10.1) L 05/26/20 06:42 Total Bilirubin 0.4 mg/dl (0.2-1) 05/23/20 09:55 AST 18 U/L (15-37) 05/23/20 09:55 ALT 19 U/L (12-78) 05/23/20 09:55 Alkaline Phosphatase 75 U/L (45-117) 05/23/20 09:55 Total Creatine Kinase 65 U/L (26-192) 05/23/20 09:55 Troponin I < 0.015 ng/ml (0-0.045) 05/23/20 09:55 NT-Pro-B Natriuret Pep 393 pg/ml (0-1800) 05/23/20 09:55 Total Protein 7.9 gm/dl (6.4-8.2) 05/23/20 09:55 Albumin 3.6 gm/dl (3.4-5.0) 05/23/20 09:55 Globulin 4.3 gm/dl (2.5-4.0) H 05/23/20 09:55 Albumin/Globulin Ratio 0.8 (0.9-2) L 05/23/20 09:55 Lipase 106 U/L (73-393) 05/23/20 09:55 25-OH Vitamin D Total 38.5 ng/ml (30-100) 05/23/20 09:55 Specimen Hemolysis 05/24/20 06:40 Urine Color Yellow 05/23/20 10:35 Urine Appearance Cloudy (Clear) A 05/23/20 10:35 Urine pH 7.5 (4.5-7.5) 05/23/20 10:35 Ur Specific [place] 1.013 (1.000-1.030) 05/23/20 10:35 Urine Protein Negative (Negative) 05/23/20 10:35 Urine Glucose (UA) Negative (Negative) 05/23/20 10:35 Urine Ketones Negative (Negative) 05/23/20 10:35 Urine Blood Trace (Negative) H 05/23/20 10:35 Urine Nitrite Negative (Negative) 05/23/20 10:35 Urine Bilirubin Negative (Negative) 05/23/20 10:35 Urine Urobilinogen Negative (Negative) 05/23/20 10:35 Ur Leukocyte Esterase 3+ (Negative) H 05/23/20 10:35 Urine WBC (Auto) >30 /hpf (0-5) H 05/23/20 10:35 Urine RBC (Auto) 0-4 /hpf (0-4) 05/23/20 10:35 U Hyaline Cast (Auto) 10-30 /lpf (0-5) H 05/23/20 10:35 U Epithel Cells (Auto) >30 /lpf (0-5) H 05/23/20 10:35 Urine Bacteria (Auto) 1+ (Negative) H 05/23/20 10:35 COVID-19 Eval Order Covid19 Done at [facility] 05/23/20 Unknown COVID-19 PCR NEGATIVE (Negative) 05/23/20 Unknown Blood Type B Positive 05/23/20 13:05 Antibody Screen NEGATIVE 05/23/20 13:05 (1) Closed fracture of right hip Encounter type: initial encounter Qualified Code(s): S72.001A - Fracture of unspecified part of neck of right femur, initial encounter for closed fracture
--- NOTE | 2020-05-26 11:10 | Hospitalist Progress Note ---
Date of Service May 26, 2020 Assessment & Plan (1) Closed fracture of right hip: s/p Fall at home with Acute Closed fracture of right hip: per Dr. David Delcid's notes: -This is an 84yo F with a PMH of HTN, HLD, GERD and other medical problems listed below who presents with right hip pain after fall on 05/23/2020. Her daughter found her on floor pt reports of losing balance and falling on right side no chest pain , SOB , dizzy spell or lightheadedness before and after fall (Patient has had prior surgeries before when she was was admitted on 04/19/20 with fall due to loss of balance -leading to left intratrochanteric fx and then had Left Hip Cannulated Screw Open Reduction Internal Fixation by Dr. Saleem on 04/19/2020, with partial weight bearing of left lower extremity and then discharged home with home physical therapy) - post op Day 2 - stable overall cleared for discharge by Orthopedic Service Ortho recommendations: DVT Prophylaxis SCDs, TEDs, Lovenox Weight Bearing as tolerated Right LE, Toe Touch Weight Bearing Left LE ff up with [facility] Dr. Casey in 1 week Anemia, likely Acute Blood Loss from Surgery Hg 9 from 10 no melena/hematochezia, other signs of bleeding asymptomatic repeat Hg in 2 days and monitor regularly Possible Hospital Delirium has brief episodes of disorientation in the evening, early AM avoid Narcotics, Benzodiazepene frequent reorientation monitor Urinary Tract Infection - Urine Culture: (+) Klebsiella patient asymptomatic - completed 3 days of Ciprofloxacin monitor for urinary symptoms, fever HTN (hypertension) HLD (hyperlipidemia) - BP on the lower side, hold Amlodipine - continue Atenolol Chronic Kidney Disease Stage 3 - crea stable Mood disorder -on SSRI fluoxetine GERD (gastroesophageal reflux disease) -Continue H2 viri as needed DVT Ppx: SCDs, Lovenox Disposition: transition to [facility] ff up with Ortho in 1 week ff up with PCP 1 week after discharge from Rehab Admission and Anticipated Discharge Date Admission Date: May 23, 2020 Subjective ff up for post op right hip surgery seen resting in bed, comfortable, oriented x 3 in good spirits, answers all questions appropriately states she feels fine overall felt disoriented this am, but quickly resolved with reorientation denies headache, dizziness, focal weakness or numbness, chest pain, SOB, palpi tations, abdominal pain, nausea/vomiting, problems with urination or BM minimal discomfort over R hip tolerating PT well no other symptoms states she is ready for discharge to Rehab today Review of Systems Review of Systems: All systems reviewed & are unremarkable except as noted in HPI & below Physical Exam Physical Exam: General- oriented x 3, not in distress, speaks in sentences with no effort or accessory muscle use Eyes- anicteric Neck- no JVD Lungs- clear breath sounds bilaterally, no rales/wheezes Heart- normal rate, regular rhythm; no murmurs Abdomen- normal bowel sounds, nondistended, soft, nontender Extremities- no pretibial edema, no calf tenderness Neuro- alert, oriented x 3; no gross focal neurologic deficits Skin- warm & dry Results & Data Results & Data ([facility]) Vital Signs (Past 12 Hours) Vital Signs Temp Pulse Pulse Resp BP Pulse Ox 05/26/20 07:19 36.7 C 67 18 110/63 91 05/26/20 06:52 71 05/26/20 04:53 68 05/26/20 02:57 36.7 C 71 20 110/75 98 Laboratory Results Laboratory Results - last 24 hr 05/26/20 05/26/20 06:42 06:42 WBC 9.18 RBC 3.15 L Hgb 9.1 L Hct 28.8 L MCV 91.4 MCH 28.9 MCHC 31.6 L RDW Std Deviation 45.9 RDW Coeff of [place] 13.7 Plt Count 166 MPV 9.1 Immature Gran % (Auto) 0.2 Neut % (Auto) 74.4 Lymph % (Auto) 11.0 [place] % (Auto) 13.5 Eos % (Auto) 0.7 Baso % (Auto) 0.2 Neut # (Auto) 6.83 H Lymph # (Auto) 1.01 L [place] # (Auto) 1.24 H Eos # (Auto) 0.06 Baso # (Auto) 0.02 Immature Gran # (Auto) 0.02 Sodium 140 Potassium 4.0 Chloride 107 Carbon Dioxide 26 Anion Gap 7.0 BUN 22 H Creatinine 0.88 Est Cr Clr Drug Dosing 51.7 Est GFR ( Amer) 69.4 Est GFR (Non-Af Amer) 59.9 BUN/Creatinine Ratio 25.0 H Glucose 112 H Calcium 8.4 L (1) Closed fracture of right hip Encounter type: initial encounter Qualified Code(s): S72.001A - Fracture of unspecified part of neck of right femur, initial encounter for closed fracture
--- NOTE | 2020-05-26 12:27 | Discharge Summary ---
Date of Service May 26, 2020 Admission HPI Per Admitting Provider This is an 84yo F with a PMH of HTN, HLD, GERD and other medical problems listed below who presents with right hip pain after fall . pt' daughter found her on floor around 7 am this morning , pt reports of losing balance and falling on right side no chest pain , SOB , dizzy spell or lightheadedness before and after fall pt had recent left hip surgery on 04/22/20 -s/p fracture of left femoral head due to fall pt has been partial wt bearing on left which made her off balance , today she tripped and fell against the wall , hitting her head and right side of the hip . no report of fever or chills , no cough no known COVID 19 exposure Admission Exam Per Admitting Provider Constitutional: WD/WN, vitals as above no acute distress Eyes: PERRL, conjunctivae normal, anicteric sclerae ENMT: external ear and nose normal, oropharynx normal Neck: trachea midline, no thyromegaly Respiratory: normal respiratory effort, lungs clear to auscultation Cardiovascular: RRR, no murmur, no edema Gastrointestinal (Abdomen): normal bowel sounds, soft, nontender, no hepatosplenomegaly Musculoskeletal: Extremities: + limited ROM of extremities (right hip pain ) Neurologic: PERRL, EOMI, accommodation nl, no face palsy, no dysarthria Psychiatric: A+Ox3, euthymic affect Principal Diagnosis RIGHT HIP FRACTURE, S/P MECHANICAL FALL S/P RIGHT HIP ARTHROPLASTY Discharge Exam General- oriented x 3, not in distress, speaks in sentences with no effort or accessory muscle use Eyes- anicteric Neck- no JVD Lungs- clear breath sounds bilaterally, no rales/wheezes Heart- normal rate, regular rhythm; no murmurs Abdomen- normal bowel sounds, nondistended, soft, nontender Extremities- no pretibial edema, no calf tenderness Neuro- alert, oriented x 3; no gross focal neurologic deficits Skin- warm & dry Discharge Data Allergies Allergy/AdvReac Type Severity Reaction Status Date / Time Penicillins Allergy Unknown UNKNOWN Verified 05/23/20 10:11 propoxyphene Allergy Unknown UNKNOWN Verified 05/23/20 10:11 morphine AdvReac Severe extreme Unverified 05/23/20 10:19 confusion Cephalosporins AdvReac Intermediate DIZZINESS Verified 05/23/20 10:11 & NAUSEA lisinopril AdvReac Intermediate COUGH Verified 05/23/20 10:11 simvastatin AdvReac Intermediate MUSCLE PAIN Verified 05/23/20 10:11 QUININE SULFATE Allergy Unknown UNKNOWN Uncoded 05/23/20 10:11 Consultations 05/23/20 11:19 Consult Case Management - Discharge Planning Routine 05/23/20 11:21 Consult Orthopedic Surgery Routine 05/23/20 11:25 ED Decision to Admit Stat 05/23/20 12:47 Consult Case Management - Discharge Planning Routine 05/24/20 18:33 Consult Case Management - Discharge Planning Routine Procedures Performed Operation Date: 05/24/20 14:10 Actual Procedures p Right Bipolar Hemiarthroplasty(Right) - James Casey DO Ordered Studies 05/23/20 09:41 CT bony pelvis wo con Stat CT SCAN OF THE BONY PELVIS WITHOUT IV CONTRAST CLINICAL HISTORY: Fall. COMPARISON STUDY: Pelvic CT dated 04/19/2020. Pelvic radiographs dated 04/19/2020. TECHNIQUE: CT scan of the bony pelvis is performed from the pelvic inlet to the proximal femora. Images are reviewed in the axial, sagittal, and coronal planes. IV contrast was not administered for this examination. 3-D reformats are created and assessed. A dose lowering technique was utilized adhering to the principles of ALARA. CT DOSE: 2098.36 mGy.cm FINDINGS: The skeletal structures are osteopenic. There is an impacted, mildly displaced, and angulated fracture of the right femoral neck with overlying soft tissue edema/hemorrhage. There is a subacute/healing fracture of the left femur with 3 intertrochanteric cortical lag screws in place. The bony pelvis appears intact. Moderate degenerative joint space narrowing is seen in both hips. Spondylotic and postoperative change is noted in the lower lumbar spine. Bone graft donor site is noted in the right ilium. No lytic or blastic lesion is seen. There is rectosigmoid fecal impaction. There is moderate diverticulosis of the visualized colon without CT evidence of acute diverticulitis. The bladder is distended but otherwise normal in appearance. The uterus is normal as imaged noting gas within the endometrial canal. Surgical clips are seen in the pelvis. No adnexal lesion is seen. There is no pelvic sidewall or inguinal adenopathy. There is generalized symmetric atrophy of the regional musculature. Advanced atherosclerotic calcification is noted in the distal abdominal aorta. IMPRESSION: 1. There is an acute impacted right femoral neck fracture as above. 2. There is a subacute/healing left femoral neck fracture status post internal fixation. 3. The bony pelvis appears intact. 4. Additional findings as above. CT cervical spine wo con Stat HISTORY: Trauma. Pain. fall TECHNIQUE: Multiaxial CT images of the cervical spine were performed and refor matted in the sagittal and coronal plane without the use of contrast. A dose lowering technique was utilized adhering to the principles of ALARA. COMPARISON: None. FINDINGS: No fractures. No subluxation. Prevertebral soft tissues and the C1-C2 interval are intact. No pneumothorax. Generalized degenerative disc change. No evidence for compression deformity. No evidence for subluxation. IMPRESSION: 1. No acute bony abnormality. 2. Considerable degenerative disc changes throughout. CT head/brain wo con Stat FINDINGS: Brain parenchyma: There are age-related involutional changes noting moderate to advanced confluent subcortical and periventricular microangiopathic change. There is no hemorrhage, mass effect, or evidence of acute territorial ischemia by CT criteria. Stern-white matter differentiation is preserved. No extra-axial fluid collection is seen. Ventricles, sulci, cisterns: Prominent secondary to involutional change. Intracranial vasculature: There is atherosclerotic calcification of the cavernous carotid and vertebral arteries. Calvarium: The skeletal structures are osteopenic. No depressed calvarial fracture is identified. Sinuses and mastoids: The visualized paranasal sinuses are clear. The mastoid air cells are well pneumatized. Orbits: The bony orbits are grossly intact. IMPRESSION: There is no hemorrhage, mass effect, or evidence of acute territorial ischemia by CT criteria. Hospital Course (1) Closed fracture of right hip: s/p Fall at home with Acute Closed fracture of right hip: per Dr. David Delcid's notes: -This is an 84yo F with a PMH of HTN, HLD, GERD and other medical problems listed below who presents with right hip pain after fall on 05/23/2020. Her daughter found her on floor pt reports of losing balance and falling on right side no chest pain , SOB , dizzy spell or lightheadedness before and after fall (Patient has had prior surgeries before when she was was admitted on 04/19/20 with fall due to loss of balance -leading to left intratrochanteric fx and then had Left Hip Cannulated Screw Open Reduction Internal Fixation by Dr. Saleem on 04/19/2020, with partial weight bearing of left lower extremity and then discharged home with home physical therapy) - post op Day 2 - stable overall cleared for discharge by Orthopedic Service Ortho recommendations: DVT Prophylaxis SCDs, TEDs, Lovenox Weight Bearing as tolerated Right LE, Toe Touch Weight Bearing Left LE ff up with [facility] Dr. Casey in 1 week Anemia, likely Acute Blood Loss from Surgery Hg 9 from 10 no melena/hematochezia, other signs of bleeding asymptomatic repeat Hg in 2 days and monitor regularly Possible Hospital Delirium has brief episodes of disorientation in the evening, early AM CT head on admission: age-related involutional changes noting moderate to adv anced confluent subcortical and periventricular microangiopathic change avoid Narcotics, Benzodiazepene frequent reorientation monitor ff up with PCP re: CT head findings, may need to consider ASA 81mg Urinary Tract Infection - Urine Culture: (+) Klebsiella patient asymptomatic - completed 3 days of Ciprofloxacin monitor for urinary symptoms, fever HTN (hypertension) HLD (hyperlipidemia) - BP on the lower side, hold Amlodipine - continue Atenolol Chronic Kidney Disease Stage 3 - crea stable Mood disorder -on SSRI fluoxetine GERD (gastroesophageal reflux disease) -Continue H2 viri as needed DVT Ppx: SCDs, Lovenox Disposition: transition to [facility] ff up with Ortho in 1 week ff up with PCP 1 week after discharge from Rehab Total Time Total Time Spent Total Time Spent (In Minutes): 55 minutes Discharge Plan Discharge Items Patient Disposition: Transfer Inpatient Rehab Fac Reason For Visit: FALL/HIP FRACTURE Discharge Diagnosis: RIGHT HIP FRACTURE, S/P MECHANICAL FALL S/P RIGHT HIP HEMIARTHROPLASTY Activity: As commented below Activity Comment: ALWAYS WITH ASSISTANCE, PT/OT EVALUATION Non-emergency contact: Primary Care Provider and Surgeon Call non-emergency contact if: you have any medication questions, your symptoms worsen, your pain is not controlled, your pain is worsening, your pain is unusual for you, your pain is concerning for you, you have a fever, your wound has increased redness, your wound has increased drainage and your wound pain has increased Follow-up/Referrals: Addison Crenshaw DO [Primary Care Provider] - James Casey DO [Physician] - Diet: Heart Healthy Addtl Attending Provider Instructions: PLEASE REFER TO ACC[facility]PANYING HOSPITAL DISCHARGE SUMMARY FOR FURTHER DETAILS. [facility] DISCHARGE INSTRUCTIONS: HIP FRACTURE SELF CARE INSTRUCTIONS: A. You are to ambulate with a walker or crutches for approximately 6 weeks. B. You are WEIGHT BEARING TOLERATE on your operative lower extremity for at least 6 weeks. C. Wear low heeled shoes with non-slip soles D. Be sure that your floors are free of things that could trip you throw rugs, electrical cords, and small objects. Avoid wet and waxed floors, especially with crutches/walker/cane. E. Try to walk several times a day with rest periods between. F. You may shower 48 hours after surgery and get the incision area wet, but DO NOT soak or submerge incision area in water. (No baths, swimming pools, hot tubs) G. You may have a large, band-aid like dressing over your incision (Aquacel). This will remain on your incision for 7 days, and then can be removed. You CAN shower with this on. If incision is leaking through the dressing, please call the office . H. Do NOT apply soap or any ointment/lotions directly over incision. I. You may use ice as needed to operative site. It is important to follow posterior hip precuations, no bending past 90 degrees or twisting, no crossing your legs, no sleeping on your side. SPECIAL CARE INSTRUCTIONS: VERY IMPORTANT TO READ AND REVIEW A. You may be at risk for phlebitis or blood clots. a. Wear surgical stockings (LES hose) for 2 weeks after surgery to improve circulation and reduce swelling. b. Take LOVENOX 40mg SQ daily for 4 weeks or as directed. This is your blood thinner. c. If you are on Coumadin- you will have daily/weekly b lood work to monitor your levels. This will be done by either your family physician/peer specialist (if you are on Coumadin chronically) versus your orthopedic surgeon. Expect a phone call the day of or the day after your blood work is drawn to adjust your dose accordingly. B. There are a few signs you need to watch for after you are home. Call [facility] at [phone] if you experience any of the following: a. If you have a temperature of 101 degrees or higher. b. Sudden increase in pain in your hip not relieved by rest or pain medication. c. Any fluid or drainage from the incision; redness of the incision. d. Shortness of breath or chest pain. C. Call your physician if: a. Temperature is greater than 101 degrees (F). b. Pain is not relieved by prescribed pain medi cations. c. Increase drainage or redness from incision. d. Unanswered questions or concerns. D. Pain Medication: a. You will be prescribed pain medication upon discharge that should last till your first post-operative appointment. b. If you experience nausea and/or skin rash, discontinue this medication and contact our office for an alternative medication. c. Caution- narcotic pain medication can cause constipation. FOLLOW UP VISIT: Please call [facility] at [phone] to schedule a follow up appointment with Dr. Casey 10-14 days from the date of your surgery date. Pending Studies at Discharge: Yes Studies:: CBC IN 2 DAYS (RE: ANEMIA) Stand-Alone Forms: [facility] Patient informed of condition?: Yes DNR: No Discharge Level of Care: Acute rehab Communicable Disease: No Discharge Prognosis: Improving Lines: None Urinary Catheter: No Medications and DC Order Prescriptions: New sennosides-docusate sodium [Senokot-S] 8.6-50 mg Tablet 2 tab PO HS 30 Days Qty: 60 RF: 0 enoxaparin 40 mg/0.4 mL Syringe 40 mg subcut Q24H 42 Days Qty: 16.8 RF: 0 Continued atenolol 50 mg tablet 50 mg PO QAM RF: 0 atorvastatin 10 mg tablet 10 mg PO HS RF: 0 fluoxetine 20 mg capsule 20 mg PO QAM RF: 0 meclizine 25 mg tablet 25 mg PO TID PRN (Reason: Dizziness) RF: 0 furosemide 20 mg tablet 20 mg PO DAILY PRN (Reason: Edema) RF: 0 famotidine 20 mg tablet 20 mg PO BID PRN (Reason: Heartburn) RF: 0 multivitamin Tablet 1 tab PO QAM RF: 0 acetaminophen 325 mg Tablet 650 mg PO Q6H PRN (Reason: pain) Qty: 50 RF: 0 ferrous sulfate [iron] 325 mg (65 mg iron) Tablet 325 mg PO DAILY PRN (Reason: tired) RF: 0 magnesium oxide 500 mg Tablet 500 mg PO DAILY PRN (Reason: Constipation) RF: 0 calcium carbonate-vitamin D3 [Calcium 500 + D] 500 mg(1,250mg) -200 unit Tablet 3 tab PO QAM RF: 0 Discontinued amlodipine 5 mg tablet 5 mg PO QAM RF: 0 aspirin [Aspir-81] 81 mg Tablet,Delayed Release (Dr/Ec) 81 mg PO BID RF: 0 lorazepam 0.5 mg Tablet 0.5 mg PO TID PRN (Reason: Anxiety) RF: 0 Discharge Orders: Discharge Order (Routine); Ordered 05/26/20 Ordered By: Nick Richards Admission Data Admit Date/Time: 05/23/20 11:14 Attending Provider: Nick Richards Admit Provider: Siri Lepe Primary Care Provider: Addison Crenshaw V. Other Providers: [facility] ; [place] ; Yuri Boyce ; Werner Marquez ; Heath Stiles ; Elida Brown ; Randy Allen ; Malorie Oakley ; Stevie Dow ; Ari Storey ; Jf Mckeon ; Ari Irene ; Santo Saunders. ; Jf Aldridge ; Leodan Hernandez ; Sesar Mix ; Aleksandr Chen ; Moses Solis ; Noah Alvarado ; Malorie Briscoe ; James Casey ; Lopez Saleem ; Keesha Ireland ; Tawanda Anderson ; Dasha Arreaga ; Siri Lepe ; David Delcid
[2020-05-26] MEDS: ACETAMINOPHEN 325 MG TAB PO PRN (12:43)
== END 2020-05-26 14:54 | DRG 470 ==
LOC: ED 08:49 → SUATTDRO 11:14 → 2W 11:14

== ENCOUNTER 2021-10-23 12:50 | Inpatient (IN) ==
[2021-10-23] MEDS ORDERED: SODIUM CHLORIDE 0.9% 500 ML IV STA (12:59)
--- NOTE | 2021-10-23 13:19 | Emergency Department Note ---
ED Visit Note This patient was seen in concert with Dr. Stacy and we discussed and agreed upon the history, physical, assessment and plan. See attending's note for details. . Resident Activity Tracking Resident Involvement: Resident Care Provided Care Provided: Adult ED
--- NOTE | 2021-10-23 13:28 | Emergency Department Note ---
Impression & Plan Atrial fibrillation with RVR ADMIT ED Provider Note HPI: The patient is an 86-year-old female with history of hypertension, hyperlipidemia, the emergency department with a chief complaint of some increased symptoms of vertigo, Generalized weakness, sore throat, states the symptoms have been ongoing for about the past 2 to 3 days. Patient arrives via EMS, she is noted to be in atrial fibrillation prior to arrival with a slightly elevated heart rate at 108. Patient is otherwise in no acute distress on my initial assessment, she was given a dose of diltiazem prior to arrival via EMS and her heart rate is in the 80s on my initial assessment. She is noted to be i n atrial fibrillation which is new for the patient. She tells me that over the past 2 to 3 days she has had a sore throat, at times a dry cough. Patient states that she has had some dizziness which feels similar to episodes of vertigo she has had in the past, she states that these happen mostly when she gets up and walks, states at rest she does not experience the dizziness. Arrival here to the ED the patient is otherwise hemodynamically stable, saturating well on room air and in no acute distress. ROS: -Neuro: Dizziness -Cardio: Palpitations/new onset atrial fibrillation -HEENT: Sore throat *10 point review systems was conducted and is otherwise negative unless stated above *Outpatient medications and allergy history reviewed PE: General: Alert, NAD HEENT: Normocephalic, atraumatic, pharyngeal erythema without exudate Eyes: Extraocular eye movement is intact, no scleral erythema Pulmonary: Clear to auscultation bilaterally, no wheezing Cardio: Regular rate and irregular rhythm GI: Abdomen is soft, nontender : No suprapubic tenderness MSK: No evidence of trauma or malformation of the extremities, no edema Skin: No evidence of rash Neuro: Alert, no focal deficits Psychiatric: Cooperative quality assurance monitor body: - An order was placed for continuous cardiac monitoring - Patient was noted to be in an irregular rhythm with rate of -- EKG: Rate: 74 Rhythm: Atrial fibrillation Intervals: Within normal limits ST changes: No ST elevation Time: 1308 Medical Decision Making: Patient presented to the emergency department with a sensation of palpitations, she is had some dizziness, sore throat, states that she generally has been somewhat more fatigued. Here in the ED her lab work-up is largely unremarkable, troponin is negative, no critical electrolyte abnormalities are noted. COVID-19 testing was obtained and is positive. Chest x-ray does not show any ev idence of pneumonia. Patient is otherwise hemodynamically stable here and rate controlled following a bolus of diltiazem that was given via EMS. This is new for the patient, her [id number] score is high and the patient will require anticoagulation, should obtain an echocardiogram, [facility] and the patient was admitted to a telemetry bed for further management of new onset atrial fibrillation. Patient and her daughter at the bedside were in agreement to the above plan the patient was admitted in stable condition. Diagnosis: 1. New onset atrial fibrillation 2. COVID-19 infection 3. Generalized weakness 4. 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 Beliefs That Will Affect Care: None marital status: / Current Living Situation: Alone Feels Safe at Home: Yes Assistive Devices: Glasses and Walker Allergies Allergies Allergy/AdvReac Type Severity Reaction Status Date / Time Penicillins Allergy Unknown UNKNOWN Verified 10/23/21 15:03 propoxyphene Allergy Unknown UNKNOWN Verified 10/23/21 15:03 morphine AdvReac Severe extreme Unverified 10/23/21 15:03 confusion Cephalosporins AdvReac Intermediate DIZZINESS Verified 10/23/21 15:03 & NAUSEA lisinopril AdvReac Intermediate COUGH Verified 10/23/21 15:03 simvastatin AdvReac Intermediate MUSCLE PAIN Verified 10/23/21 15:03 QUININE SULFATE Allergy Unknown UNKNOWN Uncoded 10/23/21 15:03 Home Meds Home Medications Medication Instructions Recorded Confirmed atenolol 50 mg tablet 50 mg PO QAM 04/19/20 10/23/21 atorvastatin 10 mg tablet 10 mg PO HS 04/19/20 10/23/21 fluoxetine 20 mg capsule 20 mg PO QAM 04/19/20 10/23/21 meclizine 25 mg tablet 25 mg PO TID PRN 04/19/20 10/23/21 calcium carbonate 500 mg-vitamin 3 tab PO QAM 05/23/20 10/23/21 D3 5 mcg (200 unit) tablet (Calcium 500 + D) amlodipine 5 mg tablet 5 mg PO DAILY 10/23/21 10/23/21 aspirin 81 mg tablet 81 mg PO DAILY 10/23/21 10/23/21 iron,carbonyl 65 mg-vitamin C 125 1 tab PO DAILY 10/23/21 10/23/21 mg tablet,delayed release (Vitron-C) Previous Rx's Medication Instructions Recorded acetaminophen 325 mg tablet 650 mg PO Q6H PRN #50 tab 04/22/20 Results & Data (ED) Vital Signs Vital Signs - 24 hr 10/23/21 13:14 10/23/21 13:15 10/23/21 13:30 Temperature 37.4 C Temperature Source Oral Pulse Rate Pulse Rate from SpO2 Sensor Pulse Rhythm Irregular Pulse Strength Normal Respiratory Rate 20 Respiratory Effort / Characteristics Non-Labored Spontaneous Respiratory Depth Normal Respiratory Pattern Regular Blood Pressure 113/69 119/71 Blood Pressure Mean 83 87 Blood Pressure Position Lying Pulse Oximetry 96 90 Oxygen Delivery Method Room Air Room Air Oxygen Flow Rate 0 Sepsis Recent Fever Within 48 Hours No Sepsis New/Unexplained Change in Mental Status No Sepsis Action Taken by Nursing No Action Required Oxygen Flow Rate - Titration 2 Pulse Oximetry Post Tiitration 97 10/23/21 13:55 10/23/21 14:00 10/23/21 15:06 Temperature Temperature Source Pulse Rate 80 99 H 103 H Pulse Rate from SpO2 Sensor 99 H 110 H Pulse Rhythm Irregular Pulse Strength Respiratory Rate 16 24 20 Respiratory Effort / Characteristics Respiratory Depth Respiratory Pattern Blood Pressure 129/66 Blood Pressure Mean 87 Blood Pressure Position Pulse Oximetry 97 99 100 Oxygen Delivery Method Nasal Cannula Nasal Cannula Oxygen Flow Rate 2 2 Sepsis Recent Fever Within 48 Hours Sepsis New/Unexplained Change in Mental Status Sepsis Action Taken by Nursing Oxygen Flow Rate - Titration Pulse Oximetry Post Tiitration 10/23/21 15:30 Temperature Temperature Source Pulse Rate 120 H Pulse Rate from SpO2 Sensor 116 H Pulse Rhythm Pulse Strength Respiratory Rate 32 H Respiratory Effort / Characteristics Respiratory Depth Respiratory Pattern Blood Pressure 119/87 Blood Pressure Mean 97 Blood Pressure Position Pulse Oximetry 99 Oxygen Delivery Method Oxygen Flow Rate Sepsis Recent Fever Within 48 Hours Sepsis New/Unexplained Change in Mental Status Sepsis Action Taken by Nursing Oxygen Flow Rate - Titration Pulse Oximetry Post Tiitration Laboratory Data Result diagrams: 10/23/21 13:47 10/23/21 13:47 Lab Results 10/23/21 10/23/21 10/23/21 Range/Units 13:47 13:47 13:47 WBC 7.46 (4.8-10.8) K/uL RBC 4.07 L (4.2-5.4) M/uL Hgb 12.4 (12.0-16.0) g/dL Hct 37.9 (37-47) % MCV 93.1 (80-100) fL MCH 30.5 (25-34) pg MCHC 32.7 (32-36) g/dL RDW Std Deviation 45.3 (36.4-46.3) fL RDW Coeff of Edison 13.3 (11.5-14.5) % Plt Count 148 (130-400) K/uL MPV 9.6 (7.4-10.4) fL Immature Gran % (Auto) 0.1 % Neut % (Auto) 69.5 % Lymph % (Auto) 16.6 % [place] % (Auto) 13.4 % Eos % (Auto) 0.1 % Baso % (Auto) 0.3 % Neut # (Auto) 5.18 (1.4-6.5) K/uL Lymph # (Auto) 1.24 (1.2-3.4) K/uL [place] # (Auto) 1.00 H (0.11-0.59) K/uL Eos # (Auto) 0.01 (0-0.5) K/uL Baso # (Auto) 0.02 (0-0.2) K/uL Immature Gran # (Auto) 0.01 (0.00-0.02) K/uL PT 10.5 (9.0-12.0) Seconds INR 1.0 (0.9-1.1) APTT 28.7 (21.0-31.0) Seconds PTT Ratio 1.1 Sodium 136 (136-145) mmol/L Potassium 3.7 (3.5-5.1) mmol/L Chloride 103 (98-107) mmol/L Carbon Dioxide 27 (21-32) mmol/L Anion Gap 6.0 (3-11) BUN 15 (7-18) mg/dl Creatinine 0.77 (0.6-1.2) mg/dl Est Cr Clr Drug Dosing 57.3 ml/min Est GFR ( Amer) 80.5 ml/min Est GFR (Non-Af Amer) 69.4 ml/min BUN/Creatinine Ratio 19.4 (10-20) Glucose 108 H (70-99) mg/dl Calcium 9.0 (8.5-10.1) mg/dl Magnesium 2.1 (1.8-2.4) mg/dl Total Bilirubin 0.4 (0.2-1) mg/dl AST 23 (15-37) U/L ALT 27 (12-78) Alkaline Phosphatase 63 (45-117) U/L Troponin I < 0.015 (0-0.045) ng/ml Total Protein 7.4 (6.4-8.2) gm/dl Albumin 3.4 (3.4-5.0) gm/dl Globulin 4.0 (2.5-4.0) gm/dl Albumin/Globulin Ratio 0.9 (0.9-2) Lipase 97 (73-393) U/L TSH 1.120 (0.300-4.500) uIu/ml SARS-CoV-2 (PCR) (Negative) Influenza Type A (PCR) (Neg) Influenza Type B (PCR) (Neg) RSV (RT-PCR) (Neg) 10/23/21 Range/Units 13:47 WBC (4.8-10.8) K/uL RBC (4.2-5.4) M/uL Hgb (12.0-16.0) g/dL Hct (37-47) % MCV (80-100) fL MCH (25-34) pg MCHC (32-36) g/dL RDW Std Deviation (36.4-46.3) fL RDW Coeff of Edison (11.5-14.5) % Plt Count (130-400) K/uL MPV (7.4-10.4) fL Immature Gran % (Auto) % Neut % (Auto) % Lymph % (Auto) % [place] % (Auto) % Eos % (Auto) % Baso % (Auto) % Neut # (Auto) (1.4-6.5) K/uL Lymph # (Auto) (1.2-3.4) K/uL [place] # (Auto) (0.11-0.59) K/uL Eos # (Auto) (0-0.5) K/uL Baso # (Auto) (0-0.2) K/uL Immature Gran # (Auto) (0.00-0.02) K/uL PT (9.0-12.0) Seconds INR (0.9-1.1) APTT (21.0-31.0) Seconds PTT Ratio Sodium (136-145) mmol/L Potassium (3.5-5.1) mmol/L Chloride (98-107) mmol/L Carbon Dioxide (21-32) mmol/L Anion Gap (3-11) BUN (7-18) mg/dl Creatinine (0.6-1.2) mg/dl Est Cr Clr Drug Dosing ml/min Est GFR ( Amer) ml/min Est GFR (Non-Af Amer) ml/min BUN/Creatinine Ratio (10-20) Glucose (70-99) mg/dl Calcium (8.5-10.1) mg/dl Magnesium (1.8-2.4) mg/dl Total Bilirubin (0.2-1) mg/dl AST (15-37) U/L ALT (12-78) Alkaline Phosphatase (45-117) U/L Troponin I (0-0.045) ng/ml Total Protein (6.4-8.2) gm/dl Albumin (3.4-5.0) gm/dl Globulin (2.5-4.0) gm/dl Albumin/Globulin Ratio (0.9-2) Lipase (73-393) U/L TSH (0.300-4.500) uIu/ml SARS-CoV-2 (PCR) POSITIVE A* (Negative) Influenza Type A (PCR) Negative (Neg) Influenza Type B (PCR) Negative (Neg) RSV (RT-PCR) Negative (Neg) Administered Medications Atorvastatin Calcium (Atorvastatin 10 Mg Tab) 10 mg PO HS MILLY Stop: 11/22/21 20:59 Last Admin: 10/23/21 20:23 Dose: 10 mg Documented by: [id number] Heparin Sodium/Dextrose (Heparin Sodium/Dextrose) 25,000 units in 500 mls @ 24 mls/hr IV .[id number] [facility]; Protocol Stop: 11/22/21 16:44 Last Admin: 10/23/21 19:30 Dose: 1,200 units/hr, 24 mls/hr Documented by: [id number] Cosigned by: [id number] Metoprolol Tartrate (Metoprolol Tartrate 25 Mg Tab) 12.5 mg PO Q6H [facility] Stop: 11/22/21 17:25 Last Admin: 10/23/21 18:54 Dose: 12.5 mg Documented by: [id number] Discontinued Medications Heparin Sodium (Porcine) (Heparin Sod (Porcine) 1000 Unit/Ml) 6,000 units IV NOW ONE Stop: 10/23/21 16:42 Last Admin: 10/23/21 19:47 Dose: Not Given Documented by: [id number] Heparin Sodium (Porcine) (Heparin Sod (Porcine) 1000 Unit/Ml) 5,000 units IV NOW ONE Stop: 10/23/21 19:31 Last Admin: 10/23/21 20:20 Dose: 5,000 units Documented by: [id number] Cosigned by: [id number] Sodium Chloride (Nss) 500 mls @ 999 mls/hr IV .Q31M STA Stop: 10/23/21 13:29 Last Infusion: 10/23/21 15:18 Dose: 0 mls/hr Documented by: [id number] Admin: 10/23/21 13:53 Dose: 999 mls/hr Documented by: [id number] Potassium Chloride (K Shay / Wtr) 10 meq in 100 mls @ 100 mls/hr IV Q1H [facility]; Protocol Stop: 10/23/21 16:29 Last Infusion: 10/23/21 18:45 Dose: 0 mls/hr Documented by: [id number] Admin: 10/23/21 17:13 Dose: 100 mls/hr Documented by: [id number] Infusion: 10/23/21 16:44 Dose: 100 mls/hr Documented by: [id number] Admin: 10/23/21 15:44 Dose: 100 mls/hr Documented by: [id number] Metoprolol Tartrate (Metoprolol Tartrate 1 Mg/Ml Vial) 5 mg IV NOW STA Stop: 10/23/21 16:27 Last Admin: 10/23/21 17:11 Dose: 5 mg Documented by: [id number] Imaging Data Radiologist's Impression: Chest X-Ray 10/23/21 12:59 XR chest 1V portable CLINICAL HISTORY: Chest Pain. COMPARISON STUDY: 05/23/2020 TECHNIQUE: 1 view of the chest FINDINGS: Single frontal view of the chest demonstrates the heart size to again be mildly enlarged. There is evidence for moderate size hiatal hernia in retrocardiac space. The lungs are clear of alveolar opacities. There is no evidence for p leural effusion. There is no evidence for vascular congestion. There is no acute osseous pathology. IMPRESSION: No acute cardiopulmonary disease. Evidence for moderate size hiatal hernia is again seen. ACT 112: Negative or not required by law. Electronically signed by: Eric Clark M.D. 10/23/2021 1:46 PM Discharge Plan Visit Data Chief Complaint: Cardiac Assessment ED Provider: Ari Stacy ED Midlevel Provider: Nova Fisher Discharge Problem: Atrial fibrillation with RVR Patient Disposition: Admitted As Inpatient Discharge Instructions Interventions: ED Discharge Assessment Last Done: 10/23/21 18:27
--- NOTE | 2021-10-23 13:47 | XRay Report ---
XR chest 1V portable CLINICAL HISTORY: Chest Pain. COMPARISON STUDY: 05/23/2020 TECHNIQUE: 1 view of the chest FINDINGS: Single frontal view of the chest demonstrates the heart size to again be mildly enlarged. There is ev idence for moderate size hiatal hernia in retrocardiac space. The lungs are clear of alveolar opaciti es. There is no evidence for pleural effusion. There is no evidence for vascular congestion. There is no acute osseous pathology. IMPRESSION: No acute cardiopulmonary disease. Evidence for moderate size hiatal hernia is again seen. ACT 112: Negative or not required by law. Electronically signed by: Eric Clark M.D. 10/23/2021 1:46 PM
[2021-10-23 14:08] LABS: Basophils # (auto) 0.02 K/uL (0-0.2); Basophils % (auto) 0.3 %; Eosinophils # (auto) 0.01 K/uL (0-0.5); Eosinophils % (auto) 0.1 %; Hematocrit (blood only) 37.9 % (37-47); Hemoglobin 12.4 g/dL (12.0-16.0); Immature Granulocytes # (auto) 0.01 K/uL (0.00-0.02); Immature Granulocytes % (auto) 0.1 %; Lymphocytes # (auto) 1.24 K/uL (1.2-3.4); Lymphocytes % (auto) 16.6 %; Mean Corpuscular Hemoglobin 30.5 pg (25-34); Mean Corpuscular Hgb Conc 32.7 g/dL (32-36); Mean Corpuscular Volume 93.1 fL (80-100); Mean Platelet Volume 9.6 fL (7.4-10.4); Monocytes % (auto) 13.4 %; Neutrophils # (auto) 5.18 K/uL (1.4-6.5); Neutrophils % (auto) 69.5 %; Platelet Count 148 K/uL (130-400); RDW Coefficient of Variation 13.3 % (11.5-14.5); RDW Standard Deviation 45.3 fL (36.4-46.3); Red Blood Count 4.07 M/uL (4.2-5.4); White Blood Count 7.46 K/uL (4.8-10.8)
[2021-10-23 14:25] LABS: Partial Thromboplastin Ratio 1.1; Partial Thromboplastin Time 28.7 Seconds (21.0-31.0); Prothrombin Time 10.5 Seconds (9.0-12.0)
[2021-10-23 14:26] LABS: Alanine Aminotransferase 27 (12-78); Albumin Level 3.4 gm/dl (3.4-5.0); Aspartate Aminotransferase 23 U/L (15-37); BUN Creatinine Ratio 19.4 (10-20); Blood Urea Nitrogen 15 mg/dl (7-18); Carbon Dioxide 27 mmol/L (21-32); Chloride 103 mmol/L (98-107); Creatinine Clr Calc Pharmacy 57.3 ml/min; Est GFR (African American) 80.5 ml/min; Est GFR (Non-African American) 69.4 ml/min; Glucose 108 mg/dl (70-99); Lipase 97 U/L (73-393); Magnesium 2.1 mg/dl (1.8-2.4); Potassium 3.7 mmol/L (3.5-5.1); Sodium 136 mmol/L (136-145)
--- NOTE | 2021-10-23 14:27 | Electrocardiogram Report ---
Test Reason : Blood Pressure : / mmHG Vent. Rate : 074 BPM Atrial Rate : 208 BPM P-R Int : 000 ms QRS Dur : 070 ms QT Int : 404 ms P-R-T Axes : 000 011 002 degrees QTc Int : 448 ms Atrial fibrillation Nonspecific T wave abnormality Abnormal ECG When compared with ECG of 24-MAY-2020 08:02, Atrial fibrillation has replaced Sinus rhythm Confirmed by Ed Diop ([id number]) on 10/23/2021 2:26:41 PM Referred By: Confirmed By:Ed Diop
[2021-10-23 14:37] LABS: Albumin Globulin Ratio 0.9 (0.9-2); Alkaline Phosphatase 63 U/L (45-117); Bilirubin,Total 0.4 mg/dl (0.2-1); Total Protein 7.4 gm/dl (6.4-8.2); Troponin I < 0.015 ng/ml (0-0.045)
[2021-10-23 14:56] LABS: Influenza A virus by PCR Negative (Neg); Influenza B virus by PCR Negative (Neg); RSV by PCR Negative (Neg)
[2021-10-23 15:08] LABS: SARS CoV2 RNA(COVID-19) InHosp POSITIVE (Negative)
[2021-10-23] MEDS: POTASSIUM CHLORIDE / WTR 10 MEQ/100 ML PLCT IV SCH ×2 (15:44→17:13)
[2021-10-23] MEDS ORDERED: METOPROLOL TARTRATE 1 MG/ML VIAL IV STA (16:26)
[2021-10-23] MEDS ORDERED: Heparin IV Adult Wt-Based Standard WITH Bolus Protocol IV SCH (16:30)
[2021-10-23] MEDS ORDERED: HEPARIN SOD (PORCINE) 1000 UNIT/ML IV ONE ×2 (16:41→19:30)
[2021-10-23] MEDS ORDERED: ACETAMINOPHEN 325 MG TAB PO PRN (17:26)
[2021-10-23] MEDS ORDERED: MECLIZINE HCL 25 MG TAB PO PRN (17:47)
--- NOTE | 2021-10-23 18:10 | History & Physical Report ---
Date of Service October 23, 2021 Assessment & Plan (1) Atrial fibrillation with RVR: Plan: -Admit to telemetry -Patient presenting from home with reports of generalized weakness and dizziness. Found to be in new onset atrial fibrillation with RVR. Patient also tested positive for COVID-19. -Received IV diltiazem for EMS with brief improvement in heart rate. -will give metoprolol 5 mg IV x 1 dose and start metoprolol 12.5 mg p.o. q6h -[id number] - will start IV heparin -Resting echo -Cardiology consult (2) COVID-19: Plan: -Patient tested positive for COVID-19 however currently saturating well on room air with mild symptoms of sore throat and cough. -No signs of pneumonia on CXR -Not meet criteria for COVID-19 directed therapies at this time (3) HTN (hypertension): Plan: -Holding atenolol in favor of starting metoprolol for A. fib -Hold amlodipine while titrating metoprolol (4) DVT prophylaxis: Plan: -On IV heparin Admission and Anticipated Discharge Date Admission Date: October 23, 2021 History of Present Illness Chief Complaint: Dizziness Primary Care Provider: Redd Smiley MD 86-year-old female with PMH HTN, dyslipidemia, and other problems listed below who presents the ED for evaluation of dizziness. Patient reports a history of chronic vertigo. Reports she developed vertigo-like symptoms yesterday that worsened today. Reports that she had difficulty walking and she felt generally weak. She also developed a sore throat and cough yesterday. Cough has been nonproductive. She denies fevers and chills. No chest pain or shortness of breath. Patient denies abdominal pain, nausea, vomiting, diarrhea. No urinary symptoms. When patient called EMS today, she was found to be in atrial fibrillation with RVR. She was treated with IV diltiazem for EMS. Initially in the ED, her heart rate was in the 90s, however during my exam heart rate was around 110. Patient also tested positive for COVID-19. She is saturating well on room air. She was given IVF and potassium replacement. Allergies Allergy/AdvReac Type Severity Reaction Status Date / Time Penicillins Allergy Unknown UNKNOWN Verified 10/23/21 15:03 propoxyphene Allergy Unknown UNKNOWN Verified 10/23/21 15:03 morphine AdvReac Severe extreme Unverified 10/23/21 15:03 confusion Cephalosporins AdvReac Intermediate DIZZINESS Verified 10/23/21 15:03 & NAUSEA lisinopril AdvReac Intermediate COUGH Verified 10/23/21 15:03 simvastatin AdvReac Intermediate MUSCLE PAIN Verified 10/23/21 15:03 QUININE SULFATE Allergy Unknown UNKNOWN Uncoded 10/23/21 15:03 Home Medications Medication Instructions Recorded Confirmed Type atenolol 50 mg tablet 50 mg PO QAM 04/19/20 10/23/21 History atorvastatin 10 mg tablet 10 mg PO HS 04/19/20 10/23/21 History fluoxetine 20 mg capsule 20 mg PO QAM 04/19/20 10/23/21 History meclizine 25 mg tablet 25 mg PO TID PRN 04/19/20 10/23/21 History acetaminophen 325 mg tablet 650 mg PO Q6H PRN #50 tab 04/22/20 10/23/21 Rx calcium carbonate 500 mg-vitamin 3 tab PO QAM 05/23/20 10/23/21 History D3 5 mcg (200 unit) tablet (Calcium 500 + D) amlodipine 5 mg tablet 5 mg PO DAILY 10/23/21 10/23/21 History aspirin 81 mg tablet 81 mg PO DAILY 10/23/21 10/23/21 History iron,carbonyl 65 mg-vitamin C 125 1 tab PO DAILY 10/23/21 10/23/21 History mg tablet,delayed release (Vitron-C) Past Med/Surg History Medical History Closed fracture of right hip GERD (gastroesophageal reflux disease) HLD (hyperlipidemia) HTN (hypertension) Surgical History H/O spinal fusion History of hip surgery Left History of total right hip replacement Hx of appendectomy Family History Other Diabetes Heart disease Hypertension Social History Smoking Status: Never smoker Hx Alcohol Use: No Hx Substance Use: No Preferred Language: German Communication Ability: Effective 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 Beliefs That Will Affect Care: None marital status: / Current Living Situation: Alone Feels Safe at Home: Yes Assistive Devices: Glasses and Walker Review of Systems Review of Systems: ROS per HPI, all other systems reviewed and negative Physical Exam Constitutional: WD/WN, vitals as above Eyes: PERRL, conjunctivae normal, anicteric sclerae ENMT: external ear and nose normal, oropharynx normal Respiratory: normal respiratory effort, lungs clear to auscultation Cardiovascular: Rate/Rhythm: + tachycardic and + irregularly irregular Vessels: normal peripheral pulses Extremities: no edema Gastrointestinal (Abdomen): normal bowel sounds, soft, nontender, no hepatosplenomegaly Musculoskeletal: no cyanosis or clubbing, extremities motor strength 5/5 Skin: no rashes, warm and dry Neurologic: PERRL, EOMI, accommodation nl, no face palsy, no dysarthria Psychiatric: A+Ox3, euthymic affect Results & Data Results & Data ([facility]) Vital Signs (Past 12 Hours) Vital Signs Temp Pulse Pulse Resp BP BP Pulse Ox 10/23/21 17:11 127 H 127/72 10/23/21 16:13 112 H 16 127/78 95 10/23/21 15:30 120 H 32 H 119/87 99 10/23/21 15:06 103 H 20 129/66 100 10/23/21 14:00 99 H 24 99 10/23/21 13:55 80 16 97 10/23/21 13:30 119/71 10/23/21 13:15 90 10/23/21 13:14 37.4 C 20 113/69 96 Laboratory Results Short CBC 10/23/21 Range/Units 13:47 WBC 7.46 (4.8-10.8) K/uL Hgb 12.4 (12.0-16.0) g/dL Hct 37.9 (37-47) % Plt Count 148 (130-400) K/uL BMP 10/23/21 13:47 Sodium 136 Potassium 3.7 Chloride 103 Carbon Dioxide 27 BUN 15 Creatinine 0.77 Glucose 108 H Calcium 9.0 Cardiac Enzymes 10/23/21 Range/Units 13:47 Troponin I < 0.015 (0-0.045) ng/ml Liver Function 10/23/21 Range/Units 13:47 Total Bilirubin 0.4 (0.2-1) mg/dl AST 23 (15-37) U/L ALT 27 (12-78) Alkaline Phosphatase 63 (45-117) U/L Albumin 3.4 (3.4-5.0) gm/dl Diagnostic Findings Chest X-Ray 10/23/21 12:59 XR chest 1V portable CLINICAL HISTORY: Chest Pain. COMPARISON STUDY: 05/23/2020 TECHNIQUE: 1 view of the chest FINDINGS: Single frontal view of the chest demonstrates the heart size to again be mildly enlarged. There is evidence for moderate size hiatal hernia in retrocardiac space. The lungs are clear of alveolar opacities. There is no evidence for pleural effusion. There is no evidence for vascular congestion. There is no acute osseous pathology. IMPRESSION: No acute cardiopulmonary disease. Evidence for moderate size hiatal hernia is again seen. ACT 112: Negative or not required by law. Electronically signed by: Eric Clark M.D. 10/23/2021 1:46 PM Code Status & VTE Plan Code Status Patient is a DNR as per my discussion with her. 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 Patient does report history of chronic vertigo. She reports her dizziness slightly improving. Patient denies other ROS. Patient does not smoke/use alcohol/use recreational drugs. No family or personal history of cancer or blood clot or NV. Patient found to be in A. fib , rate 74. Patient heart rate in 110s to 120s at bedside exam, in A. fib. Received IV diltiazem from EMS with brief improvement in her heart rate. Continue with heparin drip and metoprolol. Consult cardiology. Trend troponins. Patient also found to be Covid positive, currently on room air, not in any respiratory distress. Patient is vaccinated against Covid. Resume her home medications as above. Upon Exam: GENERAL: Alert and oriented x3. NAD, on RA. Hoarse voice. HEENT: No pallor, no icterus. Pupils equal, round and reactive to light. Oral mucosa moist. NECK: No JVD, no neck masses. HEART: S1 and S2 heard. irregular rate and rhythm. No murmur could be appreci ated, no gallop. HR in 110s to 120s. RESPIRATORY SYSTEM: Normal AP diameter. No accessory muscle use. No wheezing, no crackles. ABDOMEN: Soft, bowel sounds present, nontender, no distention. CENTRAL NERVOUS SYSTEM: No facial droop. Speech is clear. Obeys simple commands. Moves extremities. EXTREMITIES: 1+ BLE edema, no erythema seen. I have seen and examined the patient and have discussed the case with the provider above. I agree with the assessment and plan as stated.
[2021-10-23] MEDS: METOPROLOL TARTRATE 25 MG TAB PO SCH ×2 (18:54→23:22)
[2021-10-23] MEDS: HEPARIN SODIUM/DEXTROSE 25,000 UNITS/500 ML BAG IV SCH (19:30)
[2021-10-23] MEDS: ATORVASTATIN 10 MG TAB PO SCH (20:23)
[2021-10-24] MEDS ORDERED: dilTIAZem HCl 5 MG/ML 5 ML VIAL IV STA ×2 (01:27→11:31)
[2021-10-24 02:03] LABS: Partial Thromboplastin Ratio 3.9
[2021-10-24 02:08] LABS: Partial Thromboplastin Time 101.8 Seconds (21.0-31.0)
[2021-10-24] MEDS: METOPROLOL TARTRATE 25 MG TAB PO SCH ×4 (05:49→23:11)
[2021-10-24 06:27] LABS: Hematocrit (blood only) 39.8 % (37-47); Hemoglobin 13.3 g/dL (12.0-16.0); Mean Corpuscular Hemoglobin 31.1 pg (25-34); Mean Corpuscular Hgb Conc 33.4 g/dL (32-36); Mean Corpuscular Volume 93.2 fL (80-100); Mean Platelet Volume 10.6 fL (7.4-10.4); Platelet Count 143 K/uL (130-400); RDW Coefficient of Variation 13.4 % (11.5-14.5); RDW Standard Deviation 46.2 fL (36.4-46.3); Red Blood Count 4.27 M/uL (4.2-5.4); White Blood Count 8.78 K/uL (4.8-10.8)
[2021-10-24 06:59] LABS: BUN Creatinine Ratio 19.6 (10-20); Blood Urea Nitrogen 14 mg/dl (7-18); Carbon Dioxide 28 mmol/L (21-32); Chloride 102 mmol/L (98-107); Creatinine Clr Calc Pharmacy 54.8 ml/min; Est GFR (African American) 85.8 ml/min; Est GFR (Non-African American) 74.1 ml/min; Glucose 118 mg/dl (70-99); Potassium 3.5 mmol/L (3.5-5.1); Sodium 134 mmol/L (136-145)
[2021-10-24 07:05] LABS: Troponin I < 0.015 ng/ml (0-0.045)
[2021-10-24] MEDS: ASPIRIN 81 MG ECTAB PO SCH (08:04)
[2021-10-24] MEDS: FLUoxetine HCL 20 MG CAP PO SCH (08:04)
--- NOTE | 2021-10-24 09:03 | Electrocardiogram Report ---
Test Reason : Blood Pressure : / mmHG Vent. Rate : 110 BPM Atrial Rate : 104 BPM P-R Int : 000 ms QRS Dur : 068 ms QT Int : 368 ms P-R-T Axes : 000 013 241 degrees QTc Int : 498 ms Atrial fibrillation with rapid ventricular response Low voltage QRS Diffuse Nonspecific T wave abnormality Abnormal ECG When compared with ECG of 23-OCT-2021 13:08, Vent. rate has increased BY 36 BPM Confirmed by Ed Diop ([id number]) on 10/24/2021 9:03:08 AM Referred By: [email or web address] Confirmed By:Ed Diop
[2021-10-24] MEDS ORDERED: POTASSIUM CHLORIDE CRTAB 20 MEQ TABCR PO SCH (09:30)
[2021-10-24 10:13] LABS: Partial Thromboplastin Ratio 1.9
[2021-10-24 10:28] LABS: Partial Thromboplastin Time 48.7 Seconds (21.0-31.0)
[2021-10-24] MEDS ORDERED: STAT IV Infusion **Titration per Protocol STA (11:31)
--- NOTE | 2021-10-24 11:36 | Cardiology Consultation ---
Date of Consultation October 24, 2021 Assessment & Plan (1) Atrial fibrillation with RVR: (2) COVID-19: * increase metoprolol tartrate to 25 mg by mouth every 6 hours * Add diltiazem IV infusion for rate control as resent ventricular rate 120s at time of my examination * continue heparin infusion for stroke prophylaxis in the setting of SARS-Cov2. Pulse oximetry 93 % on room air. * Oral potassium replacement ordered. Duration of AF is difficult to determine. Was in SR in 2019 per past EKG. Severe left atrial enlargement noted on EKG. Anticipate rate will improve as patient recovers from her viral illness. Looking ahead, she is >80 years old, however creatinine is < 1.5 mg/dl and wt is > 60 kg, so appropriate Eliquis dose =5 mg BID. History of Present Illness Attending Physician: Nacho Leslie MD History of Present Illness Ying Rogers is an 86 year old female seen in cardiology consultation per the request of SONYA Moise for the evaluation of newly recognized atrial fibrillation with rapid ventricular response. Patient seen in room 212 of the isolation [facility]. She describes several days of symptoms including dry cough and sore throat. She then experienced dizziness. She is little bit unclear with regards to the duration of feeling dizziness, but perhaps it was 2 to 3 days. She presented to the emergency department yesterday and tested positive for SARS-CoV-2 and was found to have newly recognized atrial fibrillation with rates ranting from the 90s to 120s. She had received a dose of IV diltiazem administered by EMS prior to arrival to the ED and another IV dose of diltiazem at 130 am. Allergies Allergy/AdvReac Type Severity Reaction Status Date / Time Penicillins Allergy Unknown UNKNOWN Verified 10/23/21 15:03 propoxyphene Allergy Unknown UNKNOWN Verified 10/23/21 15:03 morphine AdvReac Severe extreme Unverified 10/23/21 15:03 confusion Cephalosporins AdvReac Intermediate DIZZINESS Verified 10/23/21 15:03 & NAUSEA lisinopril AdvReac Intermediate COUGH Verified 10/23/21 15:03 simvastatin AdvReac Intermediate MUSCLE PAIN Verified 10/23/21 15:03 QUININE SULFATE Allergy Unknown UNKNOWN Uncoded 10/23/21 15:03 Home Medications Medication Instructions Recorded Confirmed Type atenolol 50 mg tablet 50 mg PO QAM 04/19/20 10/23/21 History atorvastatin 10 mg tablet 10 mg PO HS 04/19/20 10/23/21 History fluoxetine 20 mg capsule 20 mg PO QAM 04/19/20 10/23/21 History meclizine 25 mg tablet 25 mg PO TID PRN 04/19/20 10/23/21 History acetaminophen 325 mg tablet 650 mg PO Q6H PRN #50 tab 04/22/20 10/23/21 Rx calcium carbonate 500 mg-vitamin 3 tab PO QAM 05/23/20 10/23/21 History D3 5 mcg (200 unit) tablet (Calcium 500 + D) amlodipine 5 mg tablet 5 mg PO DAILY 10/23/21 10/23/21 History aspirin 81 mg tablet 81 mg PO DAILY 10/23/21 10/23/21 History iron,carbonyl 65 mg-vitamin C 125 1 tab PO DAILY 10/23/21 10/23/21 History mg tablet,delayed release (Vitron-C) Patient History Medical History Closed fracture of right hip GERD (gastroesophageal reflux disease) HLD (hyperlipidemia) HTN (hypertension) Surgical History H/O spinal fusion History of hip surgery Left History of total right hip replacement Hx of appendectomy Family History Other Diabetes Heart disease Hypertension Social History Smoking Status: Never smoker Hx Alcohol Use: No Hx Substance Use: No Preferred Language: Bulgarian Communication Ability: Effective Bolt Sawyer Required: No Beliefs That Will Affect Care: None marital status: / Current Living Situation: Alone Feels Safe at Home: Yes Assistive Devices: Walker Review of Systems Review of Systems: All systems reviewed & are unremarkable except as noted in HPI & below Physical Exam Constitutional: + ill appearing; no acute distress Respiratory: Auscultation: lungs clear to auscultation bilaterally; no diminished lung sounds and no crackles Cardiovascular: Rate/Rhythm: + tachycardic and + irregularly irregular Heart Sounds: no murmur Extremities: no edema Gastrointestinal (Abdomen): normal bowel sounds, soft, nontender, no hepatos plenomegaly Neurologic: PERRL, EOMI, accommodation nl, no face palsy, no dysarthria Results & Data ([facility]) Vital Signs (Past 12 Hours) Vital Signs Temp Pulse Pulse Resp BP Pulse Ox 10/24/21 11:25 36.8 C 122 H 16 110/72 93 10/24/21 08:03 36.6 C 126 H 18 127/81 93 10/24/21 03:37 37.0 C 103 H 18 121/80 98 10/24/21 01:45 87 100/63 10/24/21 01:43 102 H 103/63 10/24/21 01:41 116 H 113/75 10/24/21 00:20 120 H Laboratory Results Cardiac Enzymes 10/23/21 10/23/21 10/24/21 Range/Units 13:47 22:43 05:34 AST 23 (15-37) U/L Troponin I < 0.015 < 0.015 < 0.015 (0-0.045) ng/ml Coagulation 10/23/21 10/24/21 10/24/21 Range/Units 13:47 01:31 09:23 PT 10.5 (9.0-12.0) Seconds APTT 28.7 101.8 H* 48.7 H* (21.0-31.0) Seconds CBC 10/23/21 10/24/21 Range/Units 13:47 05:34 WBC 7.46 8.78 (4.8-10.8) K/uL RBC 4.07 L 4.27 (4.2-5.4) M/uL Hgb 12.4 13.3 (12.0-16.0) g/dL Hct 37.9 39.8 (37-47) % Plt Count 148 143 (130-400) K/uL Neut # (Auto) 5.18 (1.4-6.5) K/uL Lymph # (Auto) 1.24 (1.2-3.4) K/uL [place] # (Auto) 1.00 H (0.11-0.59) K/uL Eos # (Auto) 0.01 (0-0.5) K/uL Baso # (Auto) 0.02 (0-0.2) K/uL Comprehensive Metabolic Panel 10/23/21 10/24/21 Range/Units 13:47 05:34 Sodium 136 134 L (136-145) mmol/L Potassium 3.7 3.5 (3.5-5.1) mmol/L Chloride 103 102 (98-107) mmol/L Carbon Dioxide 27 28 (21-32) mmol/L BUN 15 14 (7-18) mg/dl Creatinine 0.77 0.73 (0.6-1.2) mg/dl Glucose 108 H 118 H (70-99) mg/dl Calcium 9.0 9.0 (8.5-10.1) mg/dl AST 23 (15-37) U/L ALT 27 (12-78) Alkaline Phosphatase 63 (45-117) U/L Total Protein 7.4 (6.4-8.2) gm/dl Albumin 3.4 (3.4-5.0) gm/dl Intake and Output 10/23/21 10/24/21 10/24/21 22:59 06:59 14:59 Intake Total 700 / 1309.6 309.6 / 1309.6 Output Total 452 / 453 1 / 453 Balance 248 / 856.6 308.6 / 856.6 Intake: IV 700 / 1159.6 159.6 / 1159.6 Heparin Sodium/Dextrose 25,000 159.6 / 159.6 units In 500 ml @ 1,050 UNITS/ HR 21 mls/hr IV .[id number] [facility] Rx #:[id number] Potassium Chloride / Wtr 10 meq 200 / 200 In 100 ml @ 100 mls/hr IV Q1H [facility] Rx#:[id number] Sodium Chloride 0.9% 500 ml @ 500 / 500 999 mls/hr IV .Q31M STA Rx#: [id number] Oral 150 / 150 Output: Urine 450 / 450 # Bowel Movements 2 / 3 1 / 3 Other: # Unmeasured Voids 1 Weight 70.6 kg 69.9 kg Weight Measurement Method [facility] Diagnostic Findings EKG performed 10/23/2021 at 1308 revealed atrial fibrillation at 74 bpm, nonspecific diffuse T wave flattening. Compared to the previous tracing dating back to May,, atrial fibrillation replaced sinus rhythm. EKG dated 10/24/2021 and reviewed independently: Atrial fibrillation with ventricular rate 110 bpm, diffuse nonspecific T wave flattening once again observed. Summary of ttecho performed today,with images reviewed independently. The study was technically adequate for the evaluation of the referral indication. Atrial fibrillation with rapid ventricular response was present during the echocardiogram. The left ventricular wall motion is normal. The LV Ejection Fraction = 55-60%. The right ventricle appears mildly enlarged on some views. The right ventricular systolic function is normal as assessed by tricuspid annular plane systolic excursion (TAPSE) (normal >1.5 cm). The left atrium is severely dilated. The right atrium is mildly dilated. Aortic valve sclerosis mild, without significant aortic valvular stenosis. There is mild tricuspid regurgitation. There is mild mitral regurgitation. A small patent forament ovale is observed on Color Flow Doppler.
[2021-10-24] MEDS ORDERED: dilTIAZem HCL 125 MG in DEXTROSE 5% 100 ML IV SCH (11:45)
[2021-10-24] MEDS: dilTIAZem HCL 125 MG in DEXTROSE 5% 100 ML IV SCH (12:57)
--- NOTE | 2021-10-24 14:00 | Hospitalist Progress Note ---
Date of Service October 24, 2021 Assessment & Plan (1) Atrial fibrillation with RVR: Plan: -Admit to telemetry -Patient presenting from home with reports of generalized weakness and dizziness. Found to be in new onset atrial fibrillation with RVR. Patient also tested positive for COVID-19. -Received IV diltiazem for EMS with brief improvement in heart rate. -will give metoprolol 5 mg IV x 1 dose and start metoprolol 12.5 mg p.o. q6h -[id number] 4 - will start IV heparin -Resting echo: A. fib with RVR, LV wall motion is normal with EF 55 to 60%, RV appears mildly enlarged, RV systolic function is normal, left atrium is severely dilated, right atrium is mildly dilated, aortic valve sclerosis mild without stenosis, mild TR and mild MR -Appreciate cardiology input and recommendation -She has been put on Cardizem drip and will continue intravenous heparin and beta-viri (2) COVID-19: Plan: -Patient tested positive for COVID-19 however currently saturating well on room air with mild symptoms of sore throat and cough. -No signs of pneumonia on CXR -Not meet criteria for COVID-19 directed therapies at this time-no dexamethasone and no remdesivir -Has been saturating normally on room air (3) HTN (hypertension): Plan: -Holding atenolol in favor of starting metoprolol for A. fib -Hold amlodipine while titrating metoprolol -Blood pressure remains on the lower side of normal Hyperlipidemia On statin History of chronic kidney disease BUN and creatinine have been normal (4) DVT prophylaxis: Plan: -On IV heparin Admission and Anticipated Discharge Date Admission Date: October 23, 2021 Subjective 10/24/2021 The patient was seen and examined in telemetry unit and in the COVID room She has been feeling much better Has cough and wheezing Heart rate remains elevated at around 120s Review of Systems Review of Systems: All systems reviewed and are unremarkable except as noted below Respiratory: Minimal shortness of breath at rest Cardiovascular: Additional Comments: Denies any palpitation but has tachycardia Physical Exam Physical Exam: Lying in bed with minimal discomfort due to cough Constitutional: well developed, well nourished and + ill appearing Eyes: PERRL, conjunctivae normal, anicteric sclerae ENMT: external ear and nose normal, oropharynx normal Neck: trachea midline, no thyromegaly Respiratory: no respiratory distress Auscultation: + diminished lung sounds and + wheezes; no crackles Cardiovascular: Rate/Rhythm: regular rate, regular rhythm and + tachycardic Heart Sounds: normal S1 and normal S2; no murmur Extremities: no edema Gastrointestinal (Abdomen): Inspection/Auscultation: normal bowel sounds; abdomen not distended Percussion/Palpation: abdomen soft; abdomen nontender Musculoskeletal: No acute arthritis in any joint Neurologic: Alert, awake and oriented x3 Lymphatic: no cervical or axillary lymphadenopathy Results & Data Results & Data ([facility]) Vital Signs (Past 12 Hours) Vital Signs Temp Pulse Resp BP BP Pulse Ox 10/24/21 13:13 120 H 106/55 L 10/24/21 11:25 36.8 C 122 H 16 110/72 93 10/24/21 08:03 36.6 C 126 H 18 127/81 93 10/24/21 03:37 37.0 C 103 H 18 121/80 98 Laboratory Results Short CBC 10/23/21 10/24/21 Range/Units 13:47 05:34 WBC 7.46 8.78 (4.8-10.8) K/uL Hgb 12.4 13.3 (12.0-16.0) g/dL Hct 37.9 39.8 (37-47) % Plt Count 148 143 (130-400) K/uL BMP 10/23/21 10/24/21 13:47 05:34 Sodium 136 134 L Potassium 3.7 3.5 Chloride 103 102 Carbon Dioxide 27 28 BUN 15 14 Creatinine 0.77 0.73 Glucose 108 H 118 H Calcium 9.0 9.0 Cardiac Enzymes 10/23/21 10/23/21 10/24/21 Range/Units 13:47 22:43 05:34 Troponin I < 0.015 < 0.015 < 0.015 (0-0.045) ng/ml Liver Function 10/23/21 Range/Units 13:47 Total Bilirubin 0.4 (0.2-1) mg/dl AST 23 (15-37) U/L ALT 27 (12-78) Alkaline Phosphatase 63 (45-117) U/L Albumin 3.4 (3.4-5.0) gm/dl Medications Administered Current Inpatient Medications Acetaminophen (Acetaminophen 325 Mg Tab) 650 mg PO Q4H PRN PRN Reason: Pain or Fever Stop: 11/22/21 17:25 Aspirin (Aspirin 81 Mg Ectab) 81 mg PO DAILY [facility] Stop: 11/23/21 08:59 Last Admin: 10/24/21 08:04 Dose: 81 mg Documented by: Atorvastatin Calcium (Atorvastatin 10 Mg Tab) 10 mg PO HS [facility] Stop: 11/22/21 20:59 Last Admin: 10/23/21 20:23 Dose: 10 mg Documented by: Fluoxetine HCl (Fluoxetine Hcl 20 Mg Cap) 20 mg PO QAM [facility] Stop: 11/23/21 08:59 Last Admin: 10/24/21 08:04 Dose: 20 mg Documented by: Heparin Sodium/Dextrose (Heparin Sodium/Dextrose) 25,000 units in 500 mls @ 21 mls/hr IV .[id number] [facility]; Protocol Stop: 11/22/21 16:44 Last Titration: 10/24/21 02:55 Dose: 1,050 units/hr, 21 mls/hr Documented by: Diltiazem HCl 125 mg/ Dextrose 125 mls @ 5 mls/hr IV .Q24H [facility]; Protocol Stop: 11/23/21 11:44 Last Admin: 10/24/21 12:57 Dose: 5 mg/hr, 5 mls/hr Documented by: Meclizine HCl (Meclizine Hcl 25 Mg Tab) 25 mg PO TID PRN PRN Reason: Dizziness Stop: 11/22/21 17:46 Metoprolol Tartrate (Metoprolol Tartrate 25 Mg Tab) 25 mg PO Q6H [facility] Stop: 11/23/21 11:59 Last Admin: 10/24/21 12:56 Dose: 25 mg Documented by: Potassium Chloride (Potassium Chloride Crtab 20 Meq Tabcr) 20 meq PO TODAY@0930 [facility] Stop: 10/24/21 23:59 Last Admin: 10/24/21 10:43 Dose: 20 meq Documented by:
[2021-10-24] MEDS: ATORVASTATIN 10 MG TAB PO SCH (20:57)
[2021-10-24] MEDS: HEPARIN SODIUM/DEXTROSE 25,000 UNITS/500 ML BAG IV SCH (20:59)
[2021-10-25] MEDS: METOPROLOL TARTRATE 25 MG TAB PO SCH ×2 (05:57→12:09)
[2021-10-25 07:07] LABS: Basophils # (auto) 0.02 K/uL (0-0.2); Basophils % (auto) 0.2 %; Hematocrit (blood only) 38.4 % (37-47); Hemoglobin 12.8 g/dL (12.0-16.0); Immature Granulocytes # (auto) 0.01 K/uL (0.00-0.02); Immature Granulocytes % (auto) 0.1 %; Lymphocytes # (auto) 1.61 K/uL (1.2-3.4); Lymphocytes % (auto) 19.3 %; Mean Corpuscular Hemoglobin 31.1 pg (25-34); Mean Corpuscular Hgb Conc 33.3 g/dL (32-36); Mean Corpuscular Volume 93.4 fL (80-100); Mean Platelet Volume 10.6 fL (7.4-10.4); Monocytes # (auto) 1.21 K/uL (0.11-0.59); Monocytes % (auto) 14.5 %; Neutrophils # (auto) 5.51 K/uL (1.4-6.5); Neutrophils % (auto) 65.9 %; Platelet Count 138 K/uL (130-400); RDW Coefficient of Variation 13.3 % (11.5-14.5); RDW Standard Deviation 45.8 fL (36.4-46.3); Red Blood Count 4.11 M/uL (4.2-5.4); White Blood Count 8.36 K/uL (4.8-10.8)
[2021-10-25 07:25] LABS: Partial Thromboplastin Ratio > 5.3
[2021-10-25 07:36] LABS: BUN Creatinine Ratio 30.2 (10-20); Calcium 8.8 mg/dl (8.5-10.1); Creatinine Clr Calc Pharmacy 63.5 ml/min; Est GFR (African American) 93.5 ml/min; Est GFR (Non-African American) 80.6 ml/min; Magnesium 1.7 mg/dl (1.7-2.4); Potassium 3.3 mmol/L (3.5-5.1)
[2021-10-25 07:46] LABS: Partial Thromboplastin Time > 139.0 Seconds (21.0-31.0)
[2021-10-25] MEDS: FLUoxetine HCL 20 MG CAP PO SCH (08:21)
[2021-10-25] MEDS: ASPIRIN 81 MG ECTAB PO SCH (08:21)
--- NOTE | 2021-10-25 08:30 | Electrocardiogram Report ---
Test Reason : Blood Pressure : / mmHG Vent. Rate : 105 BPM Atrial Rate : 141 BPM P-R Int : 000 ms QRS Dur : 072 ms QT Int : 362 ms P-R-T Axes : 000 010 -67 degrees QTc Int : 478 ms Poor data quality, interpretation may be adversely affected Atrial fibrillation with rapid ventricular response Low voltage QRS Diffuse Nonspecific T wave abnormality Abnormal ECG When compared with ECG of 24-OCT-2021 05:40, No significant change was found Confirmed by Ed Diop ([id number]) on 10/25/2021 8:29:49 AM Referred By: REFERRED SELF Confirmed By:Ed Diop
[2021-10-25] MEDS ORDERED: POTASSIUM CHLORIDE CRTAB 20 MEQ TABCR PO ONE (08:35)
[2021-10-25 08:53] LABS: Partial Thromboplastin Ratio 3.8
[2021-10-25 09:00] LABS: Partial Thromboplastin Time 99.9 Seconds (21.0-31.0)
--- NOTE | 2021-10-25 14:15 | Cardiology Progress Note ---
Date of Service October 25, 2021 Assessment & Plan (1) Atrial fibrillation with RVR: (2) COVID-19: Plan: * Potassium replacement ordered by primary service for K of 3.3 mmol/l this am. * Continue IV diltiazem at 2.5 mg /hr * Change oral metoprolol tartrate to 50 mg BID. * Continue heparin for stroke prevention. Pt states she does not have prescription drug coverage and is on a fixed budget. Start coumadin today. * Check INR in am. Admission and Anticipated Discharge Date Admission Date: October 23, 2021 Subjective Pt seen in follow up. Voice is hoarse. She states however that her throat is feeling better. Pulse oximetry 93% on room air. Afebrile. Telemetry reveals for the most part rate controlled atrial fibrillation, with ventricular rate in the range of 90 to 100 bpm this morning, 80s overnight last night. She remains on a diltiazem infusion at 2.5 mg/h. Physical Exam Physical Exam: Temp Pulse Resp BP Pulse Ox 36.8 C 119 H 20 116/77 93 10/25/21 11:54 10/25/21 11:54 10/25/21 11:54 10/25/21 11:54 10/25/21 11:54 Constitutional: no acute distress Respiratory: normal respiratory effort, lungs clear to auscultation Cardiovascular: Rate/Rhythm: + irregularly irregular Extremities: no edema Results & Data ([facility]) Vital Signs (Past 12 Hours) Vital Signs Temp Pulse Pulse Resp BP BP Pulse Ox 10/25/21 11:54 36.8 C 119 H 20 116/77 93 10/25/21 10:53 96 H 10/25/21 07:36 36.8 C 86 18 147/66 H 95 10/25/21 06:48 83 10/25/21 03:48 36.8 C 101 H 20 110/70 97 Laboratory Results Coagulation 10/25/21 10/25/21 Range/Units 06:16 08:01 APTT > 139.0 H* 99.9 H* (21.0-31.0) Seconds CBC 10/25/21 Range/Units 06:16 WBC 8.36 (4.8-10.8) K/uL RBC 4.11 L (4.2-5.4) M/uL Hgb 12.8 (12.0-16.0) g/dL Hct 38.4 (37-47) % Plt Count 138 (130-400) K/uL Neut # (Auto) 5.51 (1.4-6.5) K/uL Lymph # (Auto) 1.61 (1.2-3.4) K/uL [place] # (Auto) 1.21 H (0.11-0.59) K/uL Eos # (Auto) 0.00 (0-0.5) K/uL Baso # (Auto) 0.02 (0-0.2) K/uL Comprehensive Metabolic Panel 10/25/21 Range/Units 06:16 Sodium 137 (136-145) mmol/L Potassium 3.3 L (3.5-5.1) mmol/L Chloride 102 (98-107) mmol/L Carbon Dioxide 27 (21-32) mmol/L BUN 19 (6-23) mg/dl Creatinine 0.63 (0.6-1.2) mg/dl Glucose 114 H (70-99) mg/dl Calcium 8.8 (8.5-10.1) mg/dl Intake and Output 10/24/21 10/25/21 10/25/21 22:59 06:59 14:59 Intake Total 340.4 / 448.4 100 / 448.4 231 / 231 Output Total 150 / 350 200 / 350 Balance 190.4 / 98.4 -100 / 98.4 231 / 231 Intake: IV 340.4 / 348.4 231 / 231 Heparin Sodium/Dextrose 25,000 340.4 / 340.4 231 / 231 units In 500 ml @ 1,050 UNITS/ HR 21 mls/hr IV .[id number] [facility] Rx #:[id number] dilTIAZem HCL 125 mg In 0 / 8 Dextrose 5% 100 ml @ 2.5 MG/HR 2.5 mls/hr IV .Q24H [facility] Rx#: [id number] Oral 100 / 100 Output: Urine 150 / 350 200 / 350 Other: Other Intake Source Sips Weight 68.4 kg Weight Measurement Method Built in [facility] Diagnostic Findings TTecho performed 10/24/21: LVEF 55-60% Severe LA enlargement mild MR mild TR
[2021-10-25] MEDS ORDERED: DEXTROMETHORPHAN POLYMR COMPLX 30 MG/5 ML UDP PO PRN (15:28)
--- NOTE | 2021-10-25 15:29 | Hospitalist Progress Note ---
Date of Service October 25, 2021 Assessment & Plan (1) Atrial fibrillation with RVR: Plan: Atrial fibrillation with RVR ECHO: On IV diltiazem Continue metoprolol 50 mg twice a day Continue IV heparin Started on Coumadin Monitor INR Appreciate cardiology input Monitor on telemetry (2) COVID-19: Plan: Vaccinated for COVID X2 doses -CXR:No acute cardiopulmonary disease. Evidence for moderate size hiatal hernia is again seen. Has only minimal cough Saturating well on room air Currently symptomatic management (3) HTN (hypertension): Plan: -Atenolol discontinued Started on metoprolol Monitor blood pressure Hold amlodipine for now Hyperlipidemia On statin CKD III Monitor renal function Avoid nephrotoxic agents as able (4) DVT prophylaxis: Plan: -On IV heparin Coumadin Admission and Anticipated Discharge Date Admission Date: October 23, 2021 Subjective Patient is seen and examined at bedside States having intermittent cough Denies any chest pain, shortness of breath, palpitation, dizziness, nausea, abdominal pain Offers no other complaints Saturating well on room air Review of Systems Review of Systems: All systems reviewed & are unremarkable except as noted in Subjective Physical Exam Physical Exam: Physical Exam: Vitals signs as noted above General Appearance:Thin, no apparent distress Head: normocephalic, Atraumatic Eyes: normal inspection, EOMI Neck: supple, Trachea midline Respiratory/Chest: Decreased breath sounds, CTA, No accessory muscle use Cardiovascular: Irregularly irregular, No murmur Abdomen/GI:Soft, Non tender, Bowel sounds present Extremities/Musculoskeletal:normal inspection, no edema Neurologic/Psych:AAOX3, grossly no focal neurological deficits Skin: normal color, warm Results & Data Results & Data ([facility]) Vital Signs (Past 12 Hours) Vital Signs Temp Pulse Pulse Resp BP BP Pulse Ox 10/25/21 11:54 36.8 C 119 H 20 116/77 93 10/25/21 10:53 96 H 10/25/21 07:36 36.8 C 86 18 147/66 H 95 10/25/21 06:48 83 10/25/21 03:48 36.8 C 101 H 20 110/70 97 Laboratory Results Short CBC 10/25/21 Range/Units 06:16 WBC 8.36 (4.8-10.8) K/uL Hgb 12.8 (12.0-16.0) g/dL Hct 38.4 (37-47) % Plt Count 138 (130-400) K/uL BMP 10/25/21 06:16 Sodium 137 Potassium 3.3 L Chloride 102 Carbon Dioxide 27 BUN 19 Creatinine 0.63 Glucose 114 H Calcium 8.8
[2021-10-25] MEDS: WARFARIN SOD 2.5 MG TAB PO SCH (15:59)
[2021-10-25 16:19] LABS: Partial Thromboplastin Ratio 2.4
[2021-10-25] MEDS: ATORVASTATIN 10 MG TAB PO SCH (20:12)
[2021-10-25] MEDS: METOPROLOL TARTRATE 50 MG TAB PO SCH (20:12)
[2021-10-25] MEDS: dilTIAZem HCL 125 MG in DEXTROSE 5% 100 ML IV SCH (23:04)
[2021-10-25] MEDS: HEPARIN SODIUM/DEXTROSE 25,000 UNITS/500 ML BAG IV SCH (23:05)
[2021-10-26 06:30] LABS: Appearance Urine Turbid (Clear); Bacteria Urine Automated 4+ (Negative); Bilirubin Urine Negative (Negative); Blood Urine 3+ (Negative); Color Urine Yellow; Epithelial Cell Urine Auto >30 /lpf (0-5); Glucose Urine UA Negative (Negative); Ketones Urine Trace (Negative); Leukocyte Esterase Urine 3+ (Negative); Nitrite Urine Positive (Negative); Protein Urine 1+ (Negative); Specific Gravity Urine 1.016 (1.000-1.030); Urobilinogen Urine Negative (Negative); WBC Urine Automated >30 /hpf (0-5)
[2021-10-26] MEDS ORDERED: AZTREONAM CONSULT ACTIVE PRN (08:05)
--- NOTE | 2021-10-26 08:36 | XRay Report ---
XR chest 1V portable CLINICAL HISTORY: Covid positive. Difficulty breathing.. COMPARISON STUDY: 10/23/2021 TECHNIQUE: 1 view of the chest FINDINGS: Single frontal view of the chest demonstrates the heart to again be enlarged. There is a decreased in spiratory effort with elevation of the hemidiaphragms and crowding of the bronchovascular markings at the lung bases and centrally. The lungs are clear of alveolar opacities. There is no evidence for pl eural effusion. There is no evidence for vascular congestion. There is no acute osseous pathology. IMPRESSION: There is a decreased inspiratory effort with otherwise no acute chest disease. ACT 112: Negative or not required by law. Electronically signed by: Eric Clark M.D. 10/26/2021 8:35 AM
[2021-10-26] MEDS ORDERED: AZTREONAM 2,000 MG in DEXTROSE 5% 100 ML IV ONE (09:00)
[2021-10-26] MEDS ORDERED: NITROFURANTOIN MONOHYDRATE 100 MG CAP PO SCH (09:00)
[2021-10-26 09:13] LABS: Partial Thromboplastin Ratio 3.2; Prothrombin Time 10.6 Seconds (9.0-12.0)
[2021-10-26 09:37] LABS: BUN Creatinine Ratio 21.7 (10-20); Calcium 8.6 mg/dl (8.5-10.1); Creatinine Clr Calc Pharmacy 66.6 ml/min; Potassium 3.7 mmol/L (3.5-5.1)
[2021-10-26 09:39] LABS: Partial Thromboplastin Time 83.4 Seconds (21.0-31.0)
[2021-10-26] MEDS: dilTIAZem HCL 125 MG in DEXTROSE 5% 100 ML IV SCH (09:42)
[2021-10-26] MEDS: FLUoxetine HCL 20 MG CAP PO SCH (09:43)
[2021-10-26] MEDS: ASPIRIN 81 MG ECTAB PO SCH (09:43)
[2021-10-26] MEDS: dexAMETHasone 6 MG in SYRINGE 0 ML IV SCH (09:43)
[2021-10-26] MEDS: METOPROLOL TARTRATE 50 MG TAB PO SCH ×2 (09:43→20:52)
[2021-10-26] MEDS ORDERED: REMDESIVIR 200 MG in SODIUM CHLORIDE 0.9% 210 ML IV ONE (12:00)
[2021-10-26] MEDS: NSS 30mL Flush, Days 1-5 IV SCH (13:02)
--- NOTE | 2021-10-26 13:14 | Cardiology Progress Note ---
Date of Service October 26, 2021 Assessment & Plan (1) Atrial fibrillation with RVR: (2) COVID-19: Plan: PTT 83 this morning, INR 1.0 Stat discharge she is now on remdesivir, dexamethasone, given hypoxia. Urinalysis suggests infection, prompting addition of aztreonam. Ventricular rates improved to the 80s and 90s at rest. * IV diltiazem discontinued * Continue metoprolol tartrate to 50 mg BID. * Continue heparin bridge to Coumadin. * Check INR in am. Admission and Anticipated Discharge Date Admission Date: October 23, 2021 Subjective Patient seen in cardiology follow-up, she is on the isolation [facility], room 212. She is noted to have a pulse oximetry of 94%, and remains on 2 L nasal cannula. She is out of bed in the bedside chair today. Her voice is less hoarse. She feels like she is improving every day. Review of Systems Review of Systems: All systems reviewed & are unremarkable except as noted in HPI & below Physical Exam Constitutional: no acute distress Respiratory: normal respiratory effort, lungs clear to auscultation Auscultation: lungs clear to auscultation bilaterally; no diminished lung sounds and no crackles Cardiovascular: Rate/Rhythm: + tachycardic and + irregularly irregular Heart Sounds: no murmur Extremities: no edema Gastrointestinal (Abdomen): normal bowel sounds, soft, nontender, no hepatosplenomegaly Neurologic: PERRL, EOMI, accommodation nl, no face palsy, no dysarthria Results & Data ([facility]) Vital Signs (Past 12 Hours) Vital Signs Temp Pulse Resp BP BP Pulse Ox 10/26/21 13:00 36.8 C 94 H 18 103/61 94 10/26/21 03:53 37.2 C 106 H 16 100/62 94
--- NOTE | 2021-10-26 13:42 | Communication Note ---
Date of Service: October 26, 2021 With patient's permission, I called her daughter, Cassia, and provided an update.
--- NOTE | 2021-10-26 14:31 | Electrocardiogram Report ---
Test Reason : Blood Pressure : / mmHG Vent. Rate : 096 BPM Atrial Rate : 288 BPM P-R Int : 000 ms QRS Dur : 068 ms QT Int : 350 ms P-R-T Axes : 000 030 029 degrees QTc Int : 442 ms Atrial fibrillation Low voltage QRS Diffuse Nonspecific ST and T wave abnormality Abnormal ECG When compared with ECG of 25-OCT-2021 05:54, No significant change was found Confirmed by Ed Diop ([id number]) on 10/26/2021 2:31:34 PM Referred By: REFERRED SELF Confirmed By:Ed Diop
--- NOTE | 2021-10-26 16:34 | Hospitalist Progress Note ---
Date of Service October 26, 2021 Assessment & Plan (1) Atrial fibrillation with RVR: Plan: Atrial fibrillation with RVR ECHO reviewed IV diltiazem discontinued Continue metoprolol 50 mg twice a day Continue IV heparin Continue Coumadin Monitor INR 1.0 Appreciate cardiology input Abnormal urinalysis Possible urinary tract infection Urine culture pending Continue Azactam for now (2) COVID-19: Plan: Hypoxia Vaccinated for COVID X2 doses -CXR:No acute cardiopulmonary disease. Evidence for moderate size hiatal hernia is again seen. Started on dexamethasone, remdesivir Day #1 Monitor LFTs, renal function Continue supplemental oxygen as needed Encouraged to prone Transient Confusion Likely to factorial: Acute metabolic encephalopathy secondary to hypoxia, UTI DD: Delirium Reorient frequently to minimize delirium (3) HTN (hypertension): Plan: -Atenolol discontinued Continue metoprolol Monitor blood pressure Hold amlodipine for now Hyperlipidemia On statin CKD III Monitor renal function Avoid nephrotoxic agents as able (4) DVT prophylaxis: Plan: -On IV heparin Coumadin Admission and Anticipated Discharge Date Admission Date: October 23, 2021 Subjective Patient is seen and examined at bedside Transient confusion overnight Oxygen saturations dropped to 88% on room air overnight Currently on 2 L supplemental oxygen Oriented during my encounter this morning Minimal cough but otherwise no complaints Updated patient's daughter over the phone Denies any chest pain, shortness of breath, palpitation, dizziness, nausea, abdominal pain Review of Systems Review of Systems: All systems reviewed & are unremarkable except as noted in Subjective Physical Exam Physical Exam: Physical Exam: Vitals signs as noted above General Appearance:Thin, no apparent distress Head: normocephalic, Atraumatic Eyes: normal inspection, EOMI Neck: supple, Trachea midline Respiratory/Chest: Decreased breath sounds, CTA, No accessory muscle use Cardiovascular: Irregularly irregular, No murmur Abdomen/GI:Soft, Non tender, Bowel sounds present Extremities/Musculoskeletal:normal inspection, no edema Neurologic/Psych:AAOX3, grossly no focal neurological deficits Skin: normal color, warm Results & Data Results & Data ([facility]) Vital Signs (Past 12 Hours) Vital Signs Temp Pulse Resp BP Pulse Ox 10/26/21 13:00 36.8 C 94 H 18 103/61 94 Laboratory Results BMP 10/26/21 07:33 Sodium 136 Potassium 3.7 Chloride 102 Carbon Dioxide 25 BUN 13 Creatinine 0.60 Glucose 112 H Calcium 8.6 Urine 10/26/21 Range/Units Unknown Urine Color Yellow Urine Appearance Turbid A (Clear) Urine pH 5.0 (4.5-7.5) Ur Specific Roberta 1.016 (1.000-1.030) Urine Protein 1+ H (Negative) Urine Glucose (UA) Negative (Negative)
[2021-10-26] MEDS: WARFARIN SOD 2.5 MG TAB PO SCH (16:48)
[2021-10-26 16:52] LABS: Partial Thromboplastin Ratio 2.3
[2021-10-26 16:55] LABS: Partial Thromboplastin Time 60.3 Seconds (21.0-31.0)
[2021-10-26] MEDS: AZTREONAM 1,000 MG in DEXTROSE 5% 100 ML IV SCH (20:52)
[2021-10-26] MEDS: ATORVASTATIN 10 MG TAB PO SCH (20:52)
[2021-10-27] MEDS ORDERED: MAGNESIUM SULFATE / D5W 1 GM/100 ML BAG IV ONE (00:54)
[2021-10-27] MEDS ORDERED: dilTIAZem HCl 5 MG/ML 5 ML VIAL IV STA ×2 (00:54→04:50)
[2021-10-27] MEDS ORDERED: POTASSIUM CHLORIDE CRTAB 20 MEQ TABCR PO STA (00:54)
[2021-10-27] MEDS ORDERED: dilTIAZem HCl 5 MG/ML 5 ML VIAL IV ONE (00:59)
[2021-10-27] MEDS: AZTREONAM 1,000 MG in DEXTROSE 5% 100 ML IV SCH ×3 (03:54→17:51)
[2021-10-27] MEDS: HEPARIN SODIUM/DEXTROSE 25,000 UNITS/500 ML BAG IV SCH ×2 (04:52→19:07)
[2021-10-27] MEDS: METOPROLOL TARTRATE 25 MG TAB PO SCH ×2 (05:22→19:32)
[2021-10-27 07:24] LABS: Hematocrit (blood only) 34.3 % (37-47); Hemoglobin 11.6 g/dL (12.0-16.0); Mean Corpuscular Hemoglobin 30.9 pg (25-34); Mean Corpuscular Hgb Conc 33.8 g/dL (32-36); Mean Corpuscular Volume 91.5 fL (80-100); Mean Platelet Volume 10.2 fL (7.4-10.4); Platelet Count 155 K/uL (130-400); RDW Coefficient of Variation 12.9 % (11.5-14.5); RDW Standard Deviation 43.5 fL (36.4-46.3); Red Blood Count 3.75 M/uL (4.2-5.4); White Blood Count 5.59 K/uL (4.8-10.8)
[2021-10-27 07:49] LABS: Partial Thromboplastin Ratio 2.6; Prothrombin Time 10.4 Seconds (9.0-12.0)
[2021-10-27 07:54] LABS: Albumin Globulin Ratio 1.1 (0.9-2); Albumin Level 3.6 gm/dl (3.4-5.0); BUN Creatinine Ratio 26.8 (10-20); Bilirubin,Total 0.5 mg/dl (0.2-1.0); Calcium 8.6 mg/dl (8.5-10.1); Creatinine Clr Calc Pharmacy 71.4 ml/min; Est GFR (African American) 97.2 ml/min; Est GFR (Non-African American) 83.8 ml/min; Globulin 3.2 gm/dl (2.5-4.0); Potassium 4.2 mmol/L (3.5-5.1); Total Protein 6.8 gm/dl (6.0-8.3)
[2021-10-27 07:57] LABS: Partial Thromboplastin Time 67.2 Seconds (21.0-31.0)
[2021-10-27] MEDS: dexAMETHasone 6 MG in SYRINGE 0 ML IV SCH (08:18)
[2021-10-27] MEDS: ASPIRIN 81 MG ECTAB PO SCH (08:18)
[2021-10-27] MEDS: FLUoxetine HCL 20 MG CAP PO SCH (08:18)
--- NOTE | 2021-10-27 12:12 | Cardiology Progress Note ---
Date of Service October 27, 2021 Assessment & Plan (1) Atrial fibrillation with RVR: (2) COVID-19: Plan: INR 1.0 Continue remdesivir, dexamethasone, given hypoxia. Urinalysis suggests infection, prompting addition of aztreonam. Urine culture revealing gram-negative bacilli. Remains in atrial fibrillation. Ventricular rates improved to the 80s and 90s at rest. Continue metoprolol tartrate 50 mg twice daily for rate control. Continue heparin bridge to Coumadin, agree with increasing Coumadin dose to 5 mg daily, having received 2 doses of 2.5, and INR remains low at 1.0. Recommend post hospital cardiology follow up 2-4 weeks post discharge. Admission and Anticipated Discharge Date Admission Date: October 23, 2021 Subjective Patient seen in follow-up. No acute complaints. Hoarse voice is improving. She states that she feels a little bit better every day. Most recent pulse oximetry at 720 this morning was 91% on 3 L nasal cannula. Patient remains in the isolation [place], room 212 where she is seen and examined. Physical Exam Physical Exam: Temp Pulse Resp BP Pulse Ox 36.6 C 76 18 135/61 91 10/27/21 07:20 10/27/21 07:20 10/27/21 07:20 10/27/21 07:20 10/27/21 07:20 Constitutional: WD/WN, vitals as above Respiratory: no labored breathing and no cough Auscultation: + diminished lung sounds (Mildly decreased breath sounds at the bases); no crackles and no rales Cardiovascular: Rate/Rhythm: + irregularly irregular Extremities: no edema Gastrointestinal (Abdomen): normal bowel sounds, soft, nontender, no hepatosplenomegaly Neurologic: PERRL, EOMI, accommodation nl, no face palsy, no dysarthria Results & Data ([facility]) Vital Signs (Past 12 Hours) Vital Signs Temp Pulse Pulse Resp BP BP Pulse Ox 10/27/21 07:20 36.6 C 76 18 135/61 91 10/27/21 06:01 115 H 10/27/21 05:26 110 H 128/65 10/27/21 03:39 36.7 C 128 H 20 131/71 99 Laboratory Results Cardiac Enzymes 10/27/21 Range/Units 06:23 AST 36 (13-39) U/L Coagulation 10/26/21 10/27/21 Range/Units 15:52 06:23 PT 10.4 (9.0-12.0) Seconds APTT 60.3 H* 67.2 H* (21.0-31.0) Seconds CBC 10/27/21 Range/Units 06:23 WBC 5.59 (4.8-10.8) K/uL RBC 3.75 L (4.2-5.4) M/uL Hgb 11.6 L (12.0-16.0) g/dL Hct 34.3 L (37-47) % Plt Count 155 (130-400) K/uL Comprehensive Metabolic Panel 10/27/21 Range/Units 06:23 Sodium 131 L (136-145) mmol/L Potassium 4.2 (3.5-5.1) mmol/L Chloride 99 (98-107) mmol/L Carbon Dioxide 24 (21-32) mmol/L BUN 15 (6-23) mg/dl Creatinine 0.56 L (0.6-1.2) mg/dl Glucose 110 H (70-99) mg/dl Calcium 8.6 (8.5-10.1) mg/dl AST 36 (13-39) U/L ALT 22 (7-52) U/L Alkaline Phosphatase 54 (34-104) U/L Total Protein 6.8 (6.0-8.3) gm/dl Albumin 3.6 (3.4-5.0) gm/dl Intake and Output 10/26/21 10/27/21 10/27/21 22:59 06:59 14:59 Intake Total 360 / 1317.166 496.4 / 1317.166 94.066 / 94.066 Balance 360 / 1317.166 496.4 / 1317.166 94.066 / 94.066 Intake: IV 360 / 1317.166 496.4 / 1317.166 94.066 / 94.066 Aztreonam 1,000 mg In Dextrose 110 / 220 110 / 220 5% 100 ml @ 110 mls/hr IV Q8H MILLY Rx#:[id number] Heparin Sodium/Dextrose 25,000 286.4 / 500.0 94.066 / 94.066 units In 500 ml @ 900 UNITS/HR 18 mls/hr IV .Q24H MILLY Rx#: [id number] Magnesium Sulfate / D5w 1 gm In 100 / 100 100 ml @ 50 mls/hr IV ONE ONE Rx#:[id number] Remdesivir 200 mg In Sodium 250 / 250 Chloride 0.9% 210 ml @ 125 mls/ hr IV NOW ONE Rx#:[id number]
[2021-10-27] MEDS: REMDESIVIR 100 MG in SODIUM CHLORIDE 0.9% 230 ML IV SCH (13:35)
[2021-10-27] MEDS: NSS 30mL Flush, Days 1-5 IV SCH (13:35)
--- NOTE | 2021-10-27 16:06 | Hospitalist Progress Note ---
Date of Service October 27, 2021 Assessment & Plan (1) Atrial fibrillation with RVR: Plan: Atrial fibrillation with RVR ECHO reviewed IV diltiazem discontinued Increased metoprolol 70 mg BID overnight Continue IV heparin Continue Coumadin Monitor INR 1.0 Appreciate cardiology input Increase Coumadin to 5 mg today UTI Urine culture growing gram-negative bacilli Continue Azactam (2) COVID-19: Plan: Hypoxia Vaccinated for COVID X2 doses -CXR:No acute cardiopulmonary disease. Evidence for moderate size hiatal hernia is again seen. [place] dexamethasone, remdesivir Day #2 Monitor LFTs, renal function Continue supplemental oxygen as needed Encouraged to prone Transient Confusion Likely to factorial: Acute metabolic encephalopathy secondary to hypoxia, UTI DD: Delirium Reorient frequently to minimize delirium Resolved (3) HTN (hypertension): Plan: -Atenolol discontinued Continue metoprolol Monitor blood pressure Hold amlodipine for now Hyperlipidemia On statin CKD III Monitor renal function Avoid nephrotoxic agents as able (4) DVT prophylaxis: Plan: -On IV heparin Coumadin Admission and Anticipated Discharge Date Admission Date: October 23, 2021 Subjective Patient is seen and examined at bedside Sitting in chair comfortably during my encounter States having minimal cough Saturating low 90s on 3 L supplemental oxygen Offers no other complaints Denies any chest pain, shortness of breath, dizziness, nausea, abdominal pain Review of Systems Review of Systems: All systems reviewed & are unremarkable except as noted in Subjective Physical Exam Physical Exam: Physical Exam: Vitals signs as noted above General Appearance:Thin, no apparent distress Head: normocephalic, Atraumatic Eyes: normal inspection, EOMI Neck: supple, Trachea midline Respiratory/Chest: Decreased breath sounds, CTA, No accessory muscle use Cardiovascular: Irregularly irregular, No murmur Abdomen/GI:Soft, Non tender, Bowel sounds present Extremities/Musculoskeletal:normal inspection, no edema Neurologic/Psych:AAOX3, grossly no focal neurological deficits Skin: normal color, warm Results & Data Results & Data ([facility]) Vital Signs (Past 12 Hours) Vital Signs Temp Pulse Pulse Resp BP BP Pulse Ox 10/27/21 07:20 36.6 C 76 18 135/61 91 10/27/21 06:01 115 H 10/27/21 05:26 110 H 128/65 Laboratory Results Short CBC 10/27/21 Range/Units 06:23 WBC 5.59 (4.8-10.8) K/uL Hgb 11.6 L (12.0-16.0) g/dL Hct 34.3 L (37-47) % Plt Count 155 (130-400) K/uL BMP 10/27/21 06:23 Sodium 131 L Potassium 4.2 Chloride 99 Carbon Dioxide 24 BUN 15 Creatinine 0.56 L Glucose 110 H Calcium 8.6 Liver Function 10/27/21 Range/Units 06:23 Total Bilirubin 0.5 (0.2-1.0) mg/dl AST 36 (13-39) U/L ALT 22 (7-52) U/L Alkaline Phosphatase 54 (34-104) U/L Albumin 3.6 (3.4-5.0) gm/dl
[2021-10-27 17:03] LABS: Partial Thromboplastin Ratio 2.5
[2021-10-27 17:16] LABS: Partial Thromboplastin Time 65.1 Seconds (21.0-31.0)
[2021-10-27] MEDS: WARFARIN SOD 5 MG TAB PO SCH (17:51)
[2021-10-27] MEDS: ATORVASTATIN 10 MG TAB PO SCH (19:32)
[2021-10-28] MEDS: AZTREONAM 1,000 MG in DEXTROSE 5% 100 ML IV SCH ×3 (02:24→17:04)
[2021-10-28 08:27] LABS: INR 1.2 (0.9-1.1); Partial Thromboplastin Ratio 3.5; Prothrombin Time 11.9 Seconds (9.0-12.0)
[2021-10-28 08:32] LABS: Partial Thromboplastin Time 92.5 Seconds (21.0-31.0)
[2021-10-28 08:36] LABS: Albumin Globulin Ratio 1.1 (0.9-2); Albumin Level 3.5 gm/dl (3.4-5.0); BUN Creatinine Ratio 43.1 (10-20); Bilirubin,Total 0.4 mg/dl (0.2-1.0); Calcium 8.7 mg/dl (8.5-10.1); Creatinine Clr Calc Pharmacy 68.9 ml/min; Est GFR (African American) 96.1 ml/min; Est GFR (Non-African American) 82.9 ml/min; Globulin 3.2 gm/dl (2.5-4.0); Potassium 4.1 mmol/L (3.5-5.1); Total Protein 6.7 gm/dl (6.0-8.3)
[2021-10-28] MEDS: ASPIRIN 81 MG ECTAB PO SCH (09:09)
[2021-10-28] MEDS: METOPROLOL TARTRATE 25 MG TAB PO SCH ×2 (09:10→19:52)
[2021-10-28] MEDS: dexAMETHasone 6 MG in SYRINGE 0 ML IV SCH (09:10)
[2021-10-28] MEDS: FLUoxetine HCL 20 MG CAP PO SCH (09:10)
[2021-10-28] MEDS: REMDESIVIR 100 MG in SODIUM CHLORIDE 0.9% 230 ML IV SCH (12:31)
[2021-10-28] MEDS: HEPARIN SODIUM/DEXTROSE 25,000 UNITS/500 ML BAG IV SCH (12:48)
[2021-10-28] MEDS: NSS 30mL Flush, Days 1-5 IV SCH (13:37)
[2021-10-28 15:56] LABS: Partial Thromboplastin Ratio 2.9
[2021-10-28] MEDS: WARFARIN SOD 5 MG TAB PO SCH (16:49)
--- NOTE | 2021-10-28 18:44 | Hospitalist Progress Note ---
Date of Service October 28, 2021 Assessment & Plan (1) Atrial fibrillation with RVR: Plan: Atrial fibrillation with RVR ECHO reviewed IV diltiazem discontinued Increased metoprolol 75 mg BID overnight Continue IV heparin Continue Coumadin Monitor INR 1.2 Appreciate cardiology input Continue Coumadin to 5 mg today UTI Urine culture growing E coli Continue Azactam Transition to p.o. antibiotics as able (2) COVID-19: Plan: Hypoxia Vaccinated for COVID X2 doses -CXR:No acute cardiopulmonary disease. Evidence for moderate size hiatal hernia is again seen. [place] dexamethasone, remdesivir Day #3 Monitor LFTs, renal function Continue supplemental oxygen as needed Encouraged to prone Currently on room air May need 2 step prior to discharge Transient Confusion Likely to factorial: Acute metabolic encephalopathy secondary to hypoxia, UTI DD: Delirium Reorient frequently to minimize delirium Resolved (3) HTN (hypertension): Plan: -Atenolol discontinued Continue metoprolol Monitor blood pressure Hold amlodipine Hyperlipidemia On statin CKD III Monitor renal function Avoid nephrotoxic agents as able (4) DVT prophylaxis: Plan: -On IV heparin Coumadin Admission and Anticipated Discharge Date Admission Date: October 23, 2021 Subjective Patient is seen and examined at bedside Doing well today Currently on room air Offers no complaints Denies any chest pain, shortness of breath, dizziness, nausea, abdominal pain No new complaints Review of Systems Review of Systems: All systems reviewed & are unremarkable except as noted in Subjective Physical Exam Physical Exam: Physical Exam: Vitals signs as noted above General Appearance:Thin, no apparent distress Head: normocephalic, Atraumatic Eyes: normal inspection, EOMI Neck: supple, Trachea midline Respiratory/Chest: Decreased breath sounds, CTA, No accessory muscle use Cardiovascular: Irregularly irregular, No murmur Abdomen/GI:Soft, Non tender, Bowel sounds present Extremities/Musculoskeletal:normal inspection, no edema Neurologic/Psych:AAOX3, grossly no focal neurological deficits Skin: normal color, warm Results & Data Results & Data ([facility]) Vital Signs (Past 12 Hours) Vital Signs Temp Pulse Pulse Resp BP Pulse Ox 10/28/21 16:00 36.7 C 114 H 18 106/75 97 10/28/21 15:00 99 H 10/28/21 12:13 36.4 C L 103 H 18 106/71 98 10/28/21 08:10 36.7 C 79 18 107/68 98 10/28/21 07:48 81 Laboratory Results [facility] 10/28/21 07:38 Sodium 138 Potassium 4.1 Chloride 103 Carbon Dioxide 27 BUN 25 H Creatinine 0.58 L Glucose 128 H Calcium 8.7 Liver Function 10/28/21 Range/Units 07:38 Total Bilirubin 0.4 (0.2-1.0) mg/dl AST 28 (13-39) U/L ALT 24 (7-52) U/L Alkaline Phosphatase 51 (34-104) U/L Albumin 3.5 (3.4-5.0) gm/dl
[2021-10-28] MEDS: ATORVASTATIN 10 MG TAB PO SCH (19:27)
[2021-10-28 23:01] LABS: Partial Thromboplastin Ratio 2.8
[2021-10-28 23:13] LABS: Partial Thromboplastin Time 74.8 Seconds (21.0-31.0)
[2021-10-29] MEDS: AZTREONAM 1,000 MG in DEXTROSE 5% 100 ML IV SCH (02:31)
[2021-10-29 06:36] LABS: Albumin Level 3.6 gm/dl (3.4-5.0); BUN Creatinine Ratio 43.1 (10-20); Bilirubin,Total 0.5 mg/dl (0.2-1.0); Creatinine Clr Calc Pharmacy 61.5 ml/min; Est GFR (African American) 92.5 ml/min; Est GFR (Non-African American) 79.8 ml/min; Globulin 3.5 gm/dl (2.5-4.0); Potassium 4.1 mmol/L (3.5-5.1); Total Protein 7.1 gm/dl (6.0-8.3)
[2021-10-29 06:37] LABS: INR 1.4 (0.9-1.1); Partial Thromboplastin Ratio 2.7; Prothrombin Time 13.4 Seconds (9.0-12.0)
[2021-10-29 06:40] LABS: Hematocrit (blood only) 35.3 % (37-47); Hemoglobin 11.8 g/dL (12.0-16.0); Mean Corpuscular Hemoglobin 30.7 pg (25-34); Mean Corpuscular Hgb Conc 33.4 g/dL (32-36); Mean Corpuscular Volume 91.9 fL (80-100); Mean Platelet Volume 10.4 fL (7.4-10.4); Platelet Count 235 K/uL (130-400); RDW Standard Deviation 44.1 fL (36.4-46.3); Red Blood Count 3.84 M/uL (4.2-5.4)
[2021-10-29 06:50] LABS: Partial Thromboplastin Time 71.2 Seconds (21.0-31.0)
[2021-10-29] MEDS ORDERED: METOPROLOL TARTRATE 1 MG/ML VIAL IV PRN (08:04)
[2021-10-29] MEDS: dexAMETHasone 6 MG in SYRINGE 0 ML IV SCH (08:57)
[2021-10-29] MEDS: NITROFURANTOIN MONOHYDRATE 100 MG CAP PO SCH ×2 (08:57→20:06)
[2021-10-29] MEDS: FLUoxetine HCL 20 MG CAP PO SCH (08:57)
[2021-10-29] MEDS: ASPIRIN 81 MG ECTAB PO SCH (08:57)
[2021-10-29] MEDS: METOPROLOL TARTRATE 100 MG TAB PO SCH ×2 (09:05→20:06)
[2021-10-29] MEDS: METOPROLOL TARTRATE 25 MG TAB PO SCH (09:06)
[2021-10-29] MEDS ORDERED: METOPROLOL TARTRATE 25 MG TAB PO ONE (09:15)
[2021-10-29] MEDS: REMDESIVIR 100 MG in SODIUM CHLORIDE 0.9% 230 ML IV SCH (12:41)
[2021-10-29] MEDS: HEPARIN SODIUM/DEXTROSE 25,000 UNITS/500 ML BAG IV SCH (13:13)
[2021-10-29 13:42] LABS: Partial Thromboplastin Ratio 2.6
[2021-10-29 13:44] LABS: Partial Thromboplastin Time 67.5 Seconds (21.0-31.0)
[2021-10-29] MEDS: NSS 30mL Flush, Days 1-5 IV SCH (13:52)
--- NOTE | 2021-10-29 14:17 | Hospitalist Progress Note ---
Date of Service October 29, 2021 Assessment & Plan (1) Atrial fibrillation with RVR: Plan: Atrial fibrillation with RVR ECHO reviewed IV diltiazem discontinued Continue IV heparin Continue Coumadin Monitor INR 1.4 Appreciate cardiology input Continue Coumadin to 5 mg today Metoprolol increased 200 mg twice daily UTI Urine culture growing E coli Received Azactam # 3 days>> nitrofurantoin (2) COVID-19: Plan: Hypoxia Vaccinated for COVID X2 doses -CXR:No acute cardiopulmonary disease. Evidence for moderate size hiatal hernia is again seen. [place] dexamethasone, remdesivir Day #4 Monitor LFTs, renal function Continue supplemental oxygen as needed Encouraged to prone Currently on room air May need 2 step prior to discharge Recheck serum markers tomorrow Transient Confusion Likely to factorial: Acute metabolic encephalopathy secondary to hypoxia, UTI DD: Delirium Reorient frequently to minimize delirium Resolved (3) HTN (hypertension): Plan: -Atenolol discontinued Continue metoprolol Monitor blood pressure Hold amlodipine Hyperlipidemia On statin CKD III Monitor renal function Avoid nephrotoxic agents as able (4) DVT prophylaxis: Plan: -On IV heparin Coumadin Admission and Anticipated Discharge Date Admission Date: October 23, 2021 Subjective Patient is seen and examined at bedside Tachycardic on monitor this morning States feeling well Reports minimal cough with clear to yellowish expectoration Saturating well on room air Discussed with cardiology today Denies any chest pain, shortness of breath, dizziness, nausea, abdominal pain Review of Systems Review of Systems: All systems reviewed & are unremarkable except as noted in Subjective Physical Exam Physical Exam: Physical Exam: Vitals signs as noted above General Appearance:Thin, no apparent distress Head: normocephalic, Atraumatic Eyes: normal inspection, EOMI Neck: supple, Trachea midline Respiratory/Chest: Decreased breath sounds, CTA, No accessory muscle use Cardiovascular: Irregularly irregular, No murmur Abdomen/GI:Soft, Non tender, Bowel sounds present Extremities/Musculoskeletal:normal inspection, no edema Neurologic/Psych:AAOX3, grossly no focal neurological deficits Skin: normal color, warm Results & Data Results & Data ([facility]) Vital Signs (Past 12 Hours) Vital Signs Temp Pulse Pulse Resp BP BP Pulse Ox 10/29/21 10:50 36.4 C L 90 19 111/62 96 10/29/21 08:00 96 H 10/29/21 07:49 36.5 C 117 H 20 122/85 94 10/29/21 03:30 36.6 C 114 H 18 115/68 94 Laboratory Results Short CBC 10/29/21 Range/Units 05:18 WBC 11.10 H (4.8-10.8) K/uL Hgb 11.8 L (12.0-16.0) g/dL Hct 35.3 L (37-47) % Plt Count 235 D (130-400) K/uL BMP 10/29/21 05:18 Sodium 140 Potassium 4.1 Chloride 103 Carbon Dioxide 28 BUN 28 H Creatinine 0.65 Glucose 133 H Calcium 9.0 Liver Function 10/29/21 Range/Units 05:18 Total Bilirubin 0.5 (0.2-1.0) mg/dl AST 49 H (13-39) U/L ALT 37 (7-52) U/L Alkaline Phosphatase 53 (34-104) U/L Albumin 3.6 (3.4-5.0) gm/dl
[2021-10-29] MEDS: WARFARIN SOD 5 MG TAB PO SCH (15:32)
[2021-10-29] MEDS: ATORVASTATIN 10 MG TAB PO SCH (20:06)
[2021-10-30 05:46] LABS: Hematocrit (blood only) 33.7 % (37-47); Hemoglobin 11.3 g/dL (12.0-16.0); Mean Corpuscular Hemoglobin 30.5 pg (25-34); Mean Corpuscular Hgb Conc 33.5 g/dL (32-36); Mean Corpuscular Volume 91.1 fL (80-100); Platelet Count 224 K/uL (130-400); RDW Coefficient of Variation 13.1 % (11.5-14.5); RDW Standard Deviation 43.8 fL (36.4-46.3); White Blood Count 7.33 K/uL (4.8-10.8)
[2021-10-30 06:09] LABS: Albumin Globulin Ratio 1.2 (0.9-2); Albumin Level 3.4 gm/dl (3.4-5.0); BUN Creatinine Ratio 43.3 (10-20); Bilirubin,Total 0.5 mg/dl (0.2-1.0); Calcium 8.4 mg/dl (8.5-10.1); Creatinine Clr Calc Pharmacy 59.7 ml/min; Est GFR (African American) 91.6 ml/min; Globulin 2.9 gm/dl (2.5-4.0); Total Protein 6.3 gm/dl (6.0-8.3)
[2021-10-30 06:18] LABS: INR 1.8 (0.9-1.1); Partial Thromboplastin Ratio 2.2; Prothrombin Time 17.6 Seconds (9.0-12.0)
[2021-10-30 06:25] LABS: Partial Thromboplastin Time 56.6 Seconds (21.0-31.0)
[2021-10-30] MEDS: NITROFURANTOIN MONOHYDRATE 100 MG CAP PO SCH ×2 (08:07→20:01)
[2021-10-30] MEDS: METOPROLOL TARTRATE 100 MG TAB PO SCH ×2 (08:07→20:00)
[2021-10-30] MEDS: ASPIRIN 81 MG ECTAB PO SCH (08:07)
[2021-10-30] MEDS: FLUoxetine HCL 20 MG CAP PO SCH (08:07)
[2021-10-30] MEDS: dexAMETHasone 6 MG in SYRINGE 0 ML IV SCH (08:20)
[2021-10-30] MEDS: REMDESIVIR 100 MG in SODIUM CHLORIDE 0.9% 230 ML IV SCH (11:50)
[2021-10-30] MEDS: NSS 30mL Flush, Days 1-5 IV SCH (12:57)
[2021-10-30] MEDS: HEPARIN SODIUM/DEXTROSE 25,000 UNITS/500 ML BAG IV SCH (13:15)
--- NOTE | 2021-10-30 14:57 | Hospitalist Progress Note ---
Date of Service October 30, 2021 Assessment & Plan (1) Atrial fibrillation with RVR: Plan: Atrial fibrillation with RVR ECHO reviewed IV diltiazem discontinued Continue IV heparin Continue Coumadin Monitor INR 1.8 today Appreciate cardiology input Continue Coumadin to 5 mg today Metoprolol increased 100 mg twice daily Needs follow up with Cardiology upon discharge UTI Urine culture growing E coli Received Azactam # 3 days>> nitrofurantoin Will Complete antibiotic course tomorrow (2) COVID-19: Plan: Hypoxia Vaccinated for COVID X2 doses -CXR:No acute cardiopulmonary disease. Evidence for moderate size hiatal hernia is again seen. Continue dexamethasone Completed remdesivir 5 day course Monitor LFTs, renal function Continue supplemental oxygen as needed Encouraged to prone Currently on room air Will get 2 step tomorrow Transient Confusion Likely to factorial: Acute metabolic encephalopathy secondary to hypoxia, UTI DD: Delirium Reorient frequently to minimize delirium Resolved (3) HTN (hypertension): Plan: -Atenolol discontinued Continue metoprolol Monitor blood pressure Hold amlodipine Hyperlipidemia On statin CKD III Monitor renal function Avoid nephrotoxic agents as able (4) DVT prophylaxis: Plan: -On IV heparin Coumadin Admission and Anticipated Discharge Date Admission Date: October 23, 2021 Subjective Patient is seen and examined at bedside On IV heparin, INR 1.8 No new complaints Discussed with Cardiology today Saturating well on room air Sitting in chair during my encounter Denies any chest pain, shortness of breath, dizziness, nausea, abdominal pain Review of Systems Review of Systems: All systems reviewed & are unremarkable except as noted in Subjective Physical Exam Physical Exam: Physical Exam: Vitals signs as noted above General Appearance:Thin, no apparent distress Head: normocephalic, Atraumatic Eyes: normal inspection, EOMI Neck: supple, Trachea midline Respiratory/Chest: Decreased breath sounds, CTA, No accessory muscle use Cardiovascular: Irregularly irregular, No murmur Abdomen/GI:Soft, Non tender, Bowel sounds present Extremities/Musculoskeletal:normal inspection, no edema Neurologic/Psych:AAOX3, grossly no focal neurological deficits Skin: normal color, warm Results & Data Results & Data ([facility]) Vital Signs (Past 12 Hours) Vital Signs Temp Pulse Pulse Resp BP BP Pulse Ox 10/30/21 12:50 36.7 C 100 H 18 110/54 L 94 10/30/21 07:50 36.5 C 102 H 18 130/71 90 10/30/21 07:00 97 H 10/30/21 03:19 36.8 C 109 H 16 121/66 93 Laboratory Results Short CBC 10/30/21 Range/Units 05:20 WBC 7.33 (4.8-10.8) K/uL Hgb 11.3 L (12.0-16.0) g/dL Hct 33.7 L (37-47) % Plt Count 224 (130-400) K/uL BMP 10/30/21 05:20 Sodium 139 Potassium 4.0 Chloride 105 Carbon Dioxide 28 BUN 29 H Creatinine 0.67 Glucose 127 H Calcium 8.4 L Liver Function 10/30/21 Range/Units 05:20 Total Bilirubin 0.5 (0.2-1.0) mg/dl AST 33 (13-39) U/L ALT 32 (7-52) U/L Alkaline Phosphatase 48 (34-104) U/L Albumin 3.4 (3.4-5.0) gm/dl
[2021-10-30] MEDS: WARFARIN SOD 5 MG TAB PO SCH (17:26)
[2021-10-30] MEDS: ATORVASTATIN 10 MG TAB PO SCH (20:01)
[2021-10-31] MEDS ORDERED: METOPROLOL TARTRATE 100 MG TAB PO SCH (05:30)
[2021-10-31] MEDS ORDERED: MAGNESIUM SULFATE / D5W 1 GM/100 ML BAG IV ONE (05:30)
[2021-10-31 06:05] LABS: Hematocrit (blood only) 34.8 % (37-47); Hemoglobin 11.4 g/dL (12.0-16.0)
[2021-10-31 06:37] LABS: Albumin Globulin Ratio 1.2 (0.9-2); Albumin Level 3.4 gm/dl (3.4-5.0); BUN Creatinine Ratio 48.3 (10-20); Bilirubin,Total 0.6 mg/dl (0.2-1.0); Calcium 8.7 mg/dl (8.5-10.1); Creatinine Clr Calc Pharmacy 66.6 ml/min; Globulin 2.9 gm/dl (2.5-4.0); INR 2.2 (0.9-1.1); Partial Thromboplastin Ratio 2.2; Potassium 4.1 mmol/L (3.5-5.1); Prothrombin Time 20.8 Seconds (9.0-12.0); Total Protein 6.3 gm/dl (6.0-8.3)
[2021-10-31 06:38] LABS: Partial Thromboplastin Time 56.8 Seconds (21.0-31.0)
[2021-10-31] MEDS: NITROFURANTOIN MONOHYDRATE 100 MG CAP PO SCH (08:22)
[2021-10-31] MEDS: FLUoxetine HCL 20 MG CAP PO SCH (08:22)
[2021-10-31] MEDS: ASPIRIN 81 MG ECTAB PO SCH (08:22)
--- NOTE | 2021-10-31 10:02 | Cardiology Progress Note ---
Date of Service October 31, 2021 Assessment & Plan (1) Atrial fibrillation with RVR: (2) COVID-19: (3) HTN (hypertension): Plan: Discontinue aspirin. Continue metoprolol tartrate 100 mg twice daily for rate control. Dose Coumadin daily for goal INR of 2.0-3.0. Follow-up with [facility] anticoagulation clinic for outpatient management. No further inpatient cardiac testing or intervention. Recommend outpatient cardiology follow-up in 2-4 weeks. Admission and Anticipated Discharge Date Admission Date: October 23, 2021 Subjective Patient seen and examined the bedside. Remains in atrial fibrillation on telemetry. Heart rate ranging 80s-90s beats per minute at rest. Denies palpitations, lightheadedness, or dizziness. No chest discomfort or pressure. Shortness of breath improving. Supplemental oxygen weaned off. Admitted with COVID-19 pneumonia and urinary tract infection. Prescribed metoprolol tartrate and oral anticoagulation with Coumadin. She continues to take aspirin daily as well. Notes falls over the past 12 months. Ambulating with use of a walker. Review of Systems Review of Systems: All systems reviewed & are unremarkable except as noted in Subjective Physical Exam Constitutional: well developed and well nourished Respiratory: normal respiratory effort; no respiratory distress Auscultation: + crackles (Left base); no rales, no rhonchi and no wheezes Cardiovascular: Rate/Rhythm: + irregularly irregular Heart Sounds: normal S1 and normal S2; no murmur Extremities: no edema Gastrointestinal (Abdomen): Inspection/Auscultation: abdomen normal to inspection; abdomen not distended Percussion/Palpation: abdomen nontender, no guarding and abdomen not rigid Neurologic: CN's II-XI intact bilaterally and moves all extremities; no focal motor deficits Motor/Sensory: no tremor Psychiatric: A+Ox3, euthymic affect Results & Data ([facility]) Vital Signs (Past 12 Hours) Vital Signs Temp Pulse Pulse Resp BP BP Pulse Ox 10/31/21 07:45 36.4 C L 88 18 138/76 94 10/31/21 05:41 94 H 134/81 10/31/21 04:20 36.4 C L 97 H 18 147/78 H 97 10/30/21 22:22 36.5 C 100 H 19 134/98 98 10/30/21 22:19 115 H
--- NOTE | 2021-10-31 12:33 | Hospitalist Progress Note ---
Date of Service October 31, 2021 Assessment & Plan (1) Atrial fibrillation with RVR: Plan: Atrial fibrillation with RVR ECHO reviewed IV diltiazem discontinued IV heparin discontinued Continue Coumadin Monitor INR 2.2 today Appreciate cardiology input Continue Coumadin 3 mg today Metoprolol increased 100 mg twice daily Needs follow up with Cardiology upon discharge Advised to follow-up with Coumadin clinic upon discharge UTI Urine culture growing E coli Received Azactam # 3 days>> nitrofurantoin Completed antibiotic course (2) COVID-19: Plan: Hypoxia Vaccinated for COVID X2 doses -CXR:No acute cardiopulmonary disease. Evidence for moderate size hiatal hernia is again seen. Continue dexamethasone Completed remdesivir 5 day course Monitor LFTs, renal function Continue supplemental oxygen as needed Encouraged to prone Currently on room air 2 step: Did not qualify for oxygen Transient Confusion Likely to factorial: Acute metabolic encephalopathy secondary to hypoxia, UTI DD: Delirium Reorient frequently to minimize delirium Resolved (3) HTN (hypertension): Plan: -Atenolol discontinued Continue metoprolol Monitor blood pressure Hold amlodipine Hyperlipidemia On statin CKD III Monitor renal function Avoid nephrotoxic agents as able (4) DVT prophylaxis: Plan: Coumadin Admission and Anticipated Discharge Date Admission Date: October 23, 2021 Subjective Patient is seen and examined at bedside Doing well today Sitting in chair during my encounter INT is therapeutic Reports only minimal cough Denies any chest pain, shortness of breath, dizziness, nausea, abdominal pain Plan to discharge home today Review of Systems Review of Systems: All systems reviewed & are unremarkable except as noted in Subjective Physical Exam Physical Exam: Physical Exam: Vitals signs as noted above General Appearance:Thin, no apparent distress Head: normocephalic, Atraumatic Eyes: normal inspection, EOMI Neck: supple, Trachea midline Respiratory/Chest: Decreased breath sounds, CTA, No accessory muscle use Cardiovascular: Irregularly irregular, No murmur Abdomen/GI:Soft, Non tender, Bowel sounds present Extremities/Musculoskeletal:normal inspection, no edema Neurologic/Psych:AAOX3, grossly no focal neurological deficits Skin: normal color, warm Results & Data Results & Data ([facility]) Vital Signs (Past 12 Hours) Vital Signs Temp Pulse Pulse Pulse Pulse Pulse Resp 10/31/21 11:40 36.5 C 71 18 10/31/21 11:16 77 75 81 10/31/21 08:00 100 H 10/31/21 07:45 36.4 C L 88 18 10/31/21 05:41 94 H 10/31/21 04:20 36.4 C L 97 H 18 Resp Resp Resp BP BP Pulse Ox Pulse Ox 10/31/21 11:40 119/64 95 10/31/21 11:16 18 18 18 98 10/31/21 08:00 10/31/21 07:45 138/76 94 10/31/21 05:41 134/81 10/31/21 04:20 147/78 H 97 Pulse Ox Pulse Ox 10/31/21 11:40 10/31/21 11:16 96 96 10/31/21 08:00 10/31/21 07:45 10/31/21 05:41 10/31/21 04:20 Laboratory Results Short CBC 10/31/21 Range/Units 05:26 Hgb 11.4 L (12.0-16.0) g/dL Hct 34.8 L (37-47) % BMP 10/31/21 05:26 Sodium 138 Potassium 4.1 Chloride 103 Carbon Dioxide 28 BUN 29 H Creatinine 0.60 Glucose 126 H Calcium 8.7 Liver Function 10/31/21 Range/Units 05:26 Total Bilirubin 0.6 (0.2-1.0) mg/dl AST 28 (13-39) U/L ALT 32 (7-52) U/L Alkaline Phosphatase 47 (34-104) U/L Albumin 3.4 (3.4-5.0) gm/dl
--- NOTE | 2021-10-31 14:52 | Discharge Summary ---
Date of Service October 31, 2021 Admission HPI Per Admitting Provider 86-year-old female with PMH HTN, dyslipidemia, and other problems listed below who presents the ED for evaluation of dizziness. Patient reports a history of chronic vertigo. Reports she developed vertigo-like symptoms yesterday that worsened today. Reports that she had difficulty walking and she felt generally weak. She also developed a sore throat and cough yesterday. Cough has been nonproductive. She denies fevers and chills. No chest pain or shortness of breath. Patient denies abdominal pain, nausea, vomiting, diarrhea. No urinary symptoms. When patient called EMS today, she was found to be in atrial fibrillation with RVR. She was treated with IV diltiazem for EMS. Initially in the ED, her heart rate was in the 90s, however during my exam heart rate was around 110. Patient also tested positive for COVID-19. She is saturating well on room air. She was given IVF and potassium replacement. Admission Exam Per Admitting Provider Physical Exam Constitutional: WD/WN, vitals as above Eyes: PERRL, conjunctivae normal, anicteric sclerae ENMT: external ear and nose normal, oropharynx normal Respiratory: normal respiratory effort, lungs clear to auscultation Cardiovascular: Rate/Rhythm: + tachycardic and + irregularly irregular Vessels: normal peripheral pulses Extremities: no edema Gastrointestinal (Abdomen):L normal bowel sounds, soft, nontender, no hepatosplenomegaly Musculoskeletal: no cyanosis or clubbing, extremities motor strength 5/5 Skin: no rashes, warm and dry Neurologic: PERRL, EOMI, accommodation nl, no face palsy, no dysarthria Psychiatric: A+Ox3, euthymic affect Principal Diagnosis Atrial fibrillation with rapid ventricular response Urinary tract infection COVID-19 infection Hypoxia Discharge Data Allergies Allergy/AdvReac Type Severity Reaction Status Date / Time Penicillins Allergy Unknown UNKNOWN Verified 10/23/21 15:03 propoxyphene Allergy Unknown UNKNOWN Verified 10/23/21 15:03 quinine Allergy Unknown Unknown Verified 10/27/21 01:04 morphine AdvReac Severe extreme Unverified 10/23/21 15:03 confusion Cephalosporins AdvReac Intermediate DIZZINESS Verified 10/23/21 15:03 & NAUSEA lisinopril AdvReac Intermediate COUGH Verified 10/23/21 15:03 simvastatin AdvReac Intermediate MUSCLE PAIN Verified 10/23/21 15:03 Consultations 10/23/21 15:34 ED Decision to Admit Stat 10/23/21 17:26 Consult Cardiology Routine Hospital Course (1) Atrial fibrillation with RVR: Atrial fibrillation with RVR ECHO reviewed IV diltiazem discontinued IV heparin discontinued Continue Coumadin Monitor INR 2.2 today Appreciate cardiology input Continue Coumadin 3 mg today Metoprolol increased 100 mg twice daily Needs follow up with Cardiology upon discharge Advised to follow-up with Coumadin clinic upon discharge UTI Urine culture growing E coli Received Azactam # 3 days>> nitrofurantoin Completed antibiotic course (2) COVID-19: Hypoxia Vaccinated for COVID X2 doses -CXR:No acute cardiopulmonary disease. Evidence for moderate size hiatal hernia is again seen. Continue dexamethasone Completed remdesivir 5 day course Monitor LFTs, renal function Continue supplemental oxygen as needed Encouraged to prone Currently on room air 2 step: Did not qualify for oxygen Transient Confusion Likely to factorial: Acute metabolic encephalopathy secondary to hypoxia, UTI DD: Delirium Reorient frequently to minimize delirium Resolved (3) HTN (hypertension): -Atenolol discontinued Continue metoprolol Monitor blood pressure Hold amlodipine Hyperlipidemia On statin CKD III Monitor renal function Avoid nephrotoxic agents as able (4) DVT prophylaxis: Coumadin Total Time Total Time Spent Total Time Spent (In Minutes): 42 minutes Discharge Plan Discharge Items Patient Disposition: Home - Home Health Services Reason For Visit: NEW ONSET AFIB, COVID Discharge Diagnosis: Atrial fibrillation with rapid ventricular response Urinary tract infection COVID-19 infection Hypoxia Activity: Per Instructions section Exercise/Sports: Gradually increase as tolerated Non-emergency contact: Primary Care Provider and Radio Message Router Call non-emergency contact if: you have any medication questions, your symptoms worsen, your pain is concerning for you and you have a fever Follow-up/Referrals: Redd Smiley MD [Primary Care Provider] - (Date & Time 11/07/2021 2:00 PM Provider Redd Smiley DO Department [facility] ) Diet: Heart Healthy Addtl Attending Provider Instructions: Follow-up with your primary care physician Dr. 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 Lowry in 2-4 weeks Follow-up with Coumadin clinic for management of your PT/INR and Coumadin dosing. --Your target PT/INR is between 2.0-3.0. Your PT/INR is 2.2 today (10/31/21) Take coumadin 3mg today (10/31/20). Get blood test PT/INR tomorrow (11/01/20) and follow-up with Coumadin clinic for further dosing of Coumadin. Take Medications regularly as prescribed. Seek immediate medical attention if your symptoms reoccur or worsen Please take all medications as instructed on discharge list below. Please call if you have any questions or problems. You can reach a [facility] hospitalist on duty at [facility] 24 hours a day by calling [phone] Home Isolation COVID-19 Instructions The following information about Home Isolation is from the CDC Website: https://www.cdc.gov/coronavirus/2019-ncov/hcp/wwalcxsq-nzrwigk-hsdsdb.html Stay home except to get medical care People who are mildly ill with COVID-19 are able to isolate at home during their illness. You should restrict activities outside your home, except for getting medical care. Do not go to work, school, or public areas. Avoid using public transportation, ride-sharing, or taxis. Separate yourself from other people and animals in your home People: As much as possible, you should stay in a specific room and away from other people in your home. Also, you should use a separate bathroom, if available. Animals: You should restrict contact with pets and other animals while you are sick with COVID-19, just like you would around other people. Although there have not been reports of pets or other animals becoming sick with COVID-19, it is still recommended that people sick with COVID-19 limit contact with animals until more information is known about the virus. When possible, have another member of your household care for your animals while you are sick. If you are sick with COVID-19, avoid contact with your pet, including petting, snuggling, being kissed or licked, and sharing food. If you must care for your pet or be around animals while you are sick, wash your hands before and after you interact with pets and wear a face mask. Call ahead before visiting your doctor If you have a medical appointment, call the healthcare provider and tell them that you have or may have COVID-19. This will help the healthcare providers office take steps to keep other people from getting infected or exposed. Wear a face mask You should wear a face mask when you are around other people (e.g., sharing a room or vehicle) or pets and before you enter a healthcare providers office. If you are not able to wear a face mask (for example, because it causes trouble breathing), then people who live with you should not stay in the same room with you, or they should wear a face mask if they enter your room. Cover your coughs and sneezes Cover your mouth and nose with a tissue when you cough or sneeze. Throw used tissues in a lined trash can. Immediately wash your hands with soap and water for at least 20 seconds or, if soap and water are not available, clean your hands with an alcohol-based hand uniform maker that contains at least 60% alcohol. Clean your hands often Wash your hands often with soap and water for at least 20 seconds, especially after blowing your nose, coughing, or sneezing; going to the bathroom; and before eating or preparing food. If soap and water are not readily available, use an alcohol-based hand uniform maker with at least 60% alcohol, covering all surfaces of your hands and rubbing them together until they feel dry. Soap and water are the best option if hands are visibly dirty. Avoid touching your eyes, nose, and mouth with unwashed hands. Avoid sharing personal household items You should not share dishes, drinking glasses, cups, eating utensils, towels, or bedding with other people or pets in your home. After using these items, they should be washed thoroughly with soap and water. Clean all high-touch surfaces everyday High touch surfaces include counters, tabletops, doorknobs, bathroom fixtures, toilets, phones, keyboards, tablets, and bedside tables. Also, clean any surfaces that may have blood, stool, or body fluids on them. Use a household cleaning spray or wipe, according to the label instructions. Labels contain instructions for safe and effective use of the cleaning product including precautions you should take when applying the product, such as wearing gloves and making sure you have good ventilation during use of the product. Monitor your symptoms Seek prompt medical attention if your illness is worsening (e.g., difficulty breathing).Beforeseeking care, call your healthcare provider and tell them that you have, or are being evaluated for, COVID-19. Put on a face mask before you enter the facility. These steps will help the healthcare providers office to keep other people in the office or waiting room from getting infected or exposed. Ask your healthcare provider to call the local or state health department. Persons who are placed under active monitoring or facilitated self- monitoring should follow instructions provided by their local health department or occupational health professionals, as appropriate. When working with your local health department check their available hours. If you have a medical emergency and need to call 911, notify the dispatch personnel that you have, or are being evaluated for COVID-19. If possible, put on a face mask before emergency medical services arrive. Discontinuing home isolation Patients with confirmed COVID-19 should remain under home isolation precautions until the risk of secondary transmission to others is thought to be low. The decision to discontinue home isolation precautions should be made on a [id number] basis, in consultation with healthcare providers and our community hospital and [facility] health departments. Coronavirus disease 2019 (COVID-19) is a virus that causes a respiratory illness. It is caused by a coronavirus called 2019 novel coronavirus (2019- nCoV). There are many types of coronavirus. Coronaviruses are a very common cause of bronchitis. They may sometimes cause lung infection(pneumonia). Symptoms can range from mild to severe respiratory illness. These viruses are also foundin some animals. COVID-19 was first found in people in [facility], in late 2019. In 2020, several cases of COVID-19 have been confirmed in the [place] Public health officials are working to find the source. How the virus spreads is not yet fully known. It may be spread through droplets of fluid that a person coughs or sneezes into the air. It may be spread if you touch a surface with virus on it, such as a handle or object, and then touch your mouth. What are the symptoms of COVID-19? Some people have no symptoms or mild symptoms. Symptoms may appear 2 to 14 days after contact with the virus. Symptoms can include: Fever Coughing Trouble breathing What are possible complications from COVID-19? In many cases, this virus can cause infection (pneumonia) in both lungs. In some cases, this can cause . How is COVID-19 diagnosed? Your healthcare provider will ask about your symptoms. He or she will also ask about your recent travel and contact with sick people. Testing for the virus is only done through the CDC. If yourhealthcare provider thinks you may have COVID- 19, he or she will work with your local health department and the CDC on testing. Follow all instructions from your healthcare provider. COVID-19 is diagnosed by: Nasal and throat swab. A cotton-tipped swab is wiped inside your nose or throat. This is done to check for viruses in your nasal mucus. Sputum culture. A small sample of mucus coughed from your lungs (sputum) is collected if you have a cough. It is checked for the virus. How is COVID-19 treated? There is currently no medicine to treat the virus. Treatment is done to help your body while it fights the virus. This is known as supportive care. Supportive care may include: Pain medicine. These include acetaminophen and ibuprofen. They are used to help ease pain and reduce fever. Bed rest. This helps your body fight the illness. For severe illness, you may need to stay in the hospital. Care during severe illness may include: IV (intravenous) fluids.These are given through a vein to help keep your body hydrated. Oxygen. Supplemental oxygen or ventilation with a breathing machine (eric tilator) may be given. This is done to keep enough oxygen in your body. Are you at risk for COVID-19? If youve been to a place where people have been sick with this virus, you are at risk for infection. You are at risk if you: Recently traveled to an affected area Had contact with a sick person who recently traveled to this area Had contact with a person who was diagnosed with COVID-19 How can COVID-19 be prevented? There is no vaccine yet. The best prevention is to not have contact with the virus. The CDC advises that people should not travel to areas where there are COVID-19 outbreaks right now for any reason that is not urgent. To help prevent spreading the infection, wash your hands often, or use an alcohol-basedhand uniform maker. If you are in an area with COVID-19: Wash your hands often. Or use an alcohol-based hand uniform maker often. Only touch your eyes, nose, or mouth with clean hands. Dont have contact with people who are sick. Follow local instructions about being in public. For example, you may be told to not use public transport for a period of time. Stay away from markets that have live or animals. Wash your hands after touching any animals. Don't touch animals that may be sick. Dont share eating or drinking tools with sick people. Dont kiss someone who is sick. Clean surfaces often with disinfectant. If you were in an area with COVID-19 in the last 14 days: Call your healthcare provider. He or she can talk with local health staff to see what action may be needed. Follow all instructions from your provider. Take your temperature every morning and evening for at least 14 days. This is to check for fever. Keep a record of the readings. Keep watch for symptoms of the virus. Tell your provider right away if you have symptoms. If you were in an area with COVID-19 and have a fever or other symptoms: Dont panic. Keep in mind that other illnesses can cause similar symptoms. Stay away from work, school, and public places. Limit physical contact with family members. Don't kiss anyone or share eating or drinking utensils. Clean surfaces you touch with disinfectant. This is to help prevent the virus from spreading. Call your healthcare provider. Explain that you have been exposed to COVID-19 and have symptoms. Do this before going to any hospital. Wait for instructions. Keep in mind that healthcare staff may wear protective equipment such as masks, gowns, gloves, and eye protection. You may be put in a separate room. This is to prevent the possible virus from spreading. Tell the healthcare staff about recent travel. This includes local travel on public transport. Staff may need to find other people you have been in contact with. Follow all instructions the healthcare staff give you. If you have been diagnosed with COVID-19 Follow all instructions from your healthcare provider. Dont leave your home, except to get medical care. Call your healthcare providers office before going. They can prepare and give you instructions. This will help prevent the virus from spreading. Dont go to work, school, or public areas. Dont use public transport or taxis. Stay away from other people in your home. Have them wear face masks around you. Dont share household items or food. Wear a face mask if you can. This includes at home or in a medical facility. Cover your face with a tissue when you cough or sneeze. Throw the tissue away. Wash your hands. Wash your hands often. Caregivers should: Follow all instructions from healthcare staff. Wear a face mask and protective clothing as advised. Wash hands often. Keep track of the sick persons symptoms. Clean surfaces, fabrics, and laundry thoroughly. Keep other people away from the sick person. When to call your healthcare provider Call your healthcare provider: If youve recently traveled and have symptoms If you have been diagnosed with COVID-19 and your symptoms are worse To learn more To find out more about COVID-19, visit the CDC website at www.cdc.gov/coronavirus/2019-ncov/index.html. [facility]. [address] [place] [address]. All rights reserved. This information is not intended as a substitute for professional medical care. Always follow your healthcare professional's instructions. This information has been adapted from [employer] Pending Studies at Discharge: No Stand-Alone Forms: [facility] [employer], Smoking Cessation Medications and DC Order Prescriptions: New metoprolol tartrate 100 mg Tablet 100 mg PO BID Qty: 60 RF: 1 warfarin 1 mg tablet 1 mg PO UD Qty: 100 RF: 0 warfarin 2 mg tablet 2 mg PO UD Qty: 100 RF: 0 Continued atorvastatin 10 mg tablet 10 mg PO HS RF: 0 fluoxetine 20 mg capsule 20 mg PO QAM RF: 0 meclizine 25 mg tablet 25 mg PO TID PRN (Reason: Dizziness) RF: 0 acetaminophen 325 mg Tablet 650 mg PO Q6H PRN (Reason: pain) Qty: 50 RF: 0 calcium carbonate-vitamin D3 [Calcium 500 + D] 500 mg(1,250mg) -200 unit Tablet 3 tab PO QAM RF: 0 aspirin 81 mg Tablet 81 mg PO DAILY RF: 0 Vitron-C 65 mg iron- 125 mg Tablet,Delayed Release (Dr/Ec) 1 tab PO DAILY RF: 0 Discontinued atenolol 50 mg tablet 50 mg PO QAM RF: 0 amlodipine 5 mg tablet 5 mg PO DAILY RF: 0 Discharge Orders: Discharge Order (Routine); Ordered 10/31/21 Ordered By: Dandre Brunson Admission Data Admit Date/Time: 10/23/21 15:38 Attending Provider: Dandre Brunson Admit Provider: Fantasma Avilez Primary Care Provider: Redd Smiley Other Providers: Fantasma Avilez ; Randy Lowry ; [place],[facility]
[2021-10-31] MEDS ORDERED: WARFARIN SOD 3 MG TAB PO SCH (16:00)
== END 2021-10-31 16:08 | disposition home health service (06) | DRG 308 ==
LOC: ED 12:50 → EDINP 15:38 → SUATTDRO 15:38 → 2E 18:27 → 2S 10-30 11:16
DX: N18.30 Chronic kidney disease, stage 3 unspecified; K44.9 Diaphragmatic hernia without obstruction or gangrene; U07.1 COVID-19; N39.0 Urinary tract infection, site not specified; Z88.5 Allergy status to narcotic agent; H81.399 Other peripheral vertigo, unspecified ear; I48.91 Unspecified atrial fibrillation; Z66 Do not resuscitate; I12.9 Hypertensive chronic kidney disease with stage 1 through stage 4 chronic kidney disease, or unspecified chronic kidney disease; Z98.1 Arthrodesis status; Z79.899 Other long term (current) drug therapy; Z88.8 Allergy status to other drugs, medicaments and biological substances; Z88.0 Allergy status to penicillin; Z79.82 Long term (current) use of aspirin; E78.5 Hyperlipidemia, unspecified

== ENCOUNTER 2022-11-21 14:16 | Inpatient (IN) ==
[2022-11-21] MEDS ORDERED: SODIUM CHLORIDE 0.9% 500 ML IV ONE (14:50)
--- NOTE | 2022-11-21 15:23 | XRay Report ---
SINGLE VIEW CHEST CLINICAL HISTORY: Syncope. FINDINGS: An AP, portable, upright chest radiograph is compared to study dated 10/26/2021. A hiatal he rnia is noted. The heart is enlarged noting atherosclerotic calcification of the thoracic ureter. The pulmonary vasculature is noncongested. Chronic interstitial thickening similar to previous. There is airspace consolidation in the left upper lung. The right lung appears clear noting bibasilar atelect asis. No large pleural effusion or pneumothorax is seen. The skeletal structures are osteopenic. The bony thorax is grossly intact. Arthritic change is noted in the shoulders. IMPRESSION: 1. Cardiomegaly without radiographic evidence of congestive failure. 2. Left upper lobe airspace consolidation is new from previous. The appearance suggests pneumonia/asp iration pneumonitis. Clinical correlation will be required and radiographic follow-up to resolution i s recommended. ACT 112: Negative or not required by law. Electronically signed by: Jim Ruff M.D. 11/21/2022 3:21 PM
[2022-11-21 16:10] LABS: Basophils # (auto) 0.04 K/uL (0-0.2); Basophils % (auto) 0.3 %; Eosinophils # (auto) 0.04 K/uL (0-0.50); Eosinophils % (auto) 0.3 %; Hematocrit (blood only) 39.2 % (37.0-47.0); Hemoglobin 13.3 g/dl (12.0-16.0); Immature Granulocytes # (auto) 0.07 K/uL (0.01-0.20); Immature Granulocytes % (auto) 0.4 %; Lymphocytes # (auto) 0.57 K/uL (1.2-3.4); Lymphocytes % (auto) 3.6 %; Mean Corpuscular Hemoglobin 32.2 pg (25.0-34.0); Mean Corpuscular Hgb Conc 33.9 g/dL (32.0-36.0); Mean Corpuscular Volume 94.9 fL (80.0-100.0); Mean Platelet Volume 11.4 fL (9.4-12.4); Monocytes # (auto) 1.25 K/uL (0.11-0.59); Monocytes % (auto) 7.9 %; Neutrophils # (auto) 13.93 K/uL (1.40-6.50); Neutrophils % (auto) 87.5 %; Platelet Count 136 K/uL (130-400); RDW Coefficient of Variation 12.6 % (11.5-14.5); RDW Standard Deviation 43.7 fL (36.4-46.3); Red Blood Count 4.13 M/uL (4.20-5.40)
[2022-11-21 16:47] LABS: INR 1.1 (0.9-1.1); Prothrombin Time 11.8 Seconds (9.0-12.0)
[2022-11-21 16:54] LABS: Albumin Globulin Ratio 1.2 (0.9-2); Albumin Level 4.3 gm/dl (3.4-5.0); BUN Creatinine Ratio 30.7 (10-20); Bilirubin,Total 1.5 mg/dl (0.2-1.0); Calcium 9.6 mg/dl (8.5-10.1); Creatinine Clr Calc Pharmacy 47.8 ml/min; Est GFR (Non-African American) 58.7 ml/min; Globulin 3.6 gm/dl (2.5-4.0); Magnesium 1.7 mg/dl (1.7-2.4); Phosphorus 3.1 mg/dl (2.5-4.9); Potassium 4.1 mmol/L (3.5-5.1); Total Protein 7.9 gm/dl (6.0-8.3)
--- NOTE | 2022-11-21 17:08 | Emergency Department Note ---
Impression & Plan Pneumonia, Chronic atrial fibrillation, Acute UTI, Weakness ED Provider Note NAME: HALEIGH SNYDER AGE: 87 SEX: F ARRIVES VIA: Ambulance INFORMANT: Patient ED PROVIDER(S): Brandon Huff MD CHIEF COMPLAINT: Weakness PLAN: Disposition: Admit MEDICAL DECISION MAKING: The patient is a pleasant 87-year-old woman with past medical history of hypertension, hyperlipidemia, vertigo, atrial fibrillation on Eliquis who presents to the emergency department via EMS and then accompanied by her daughter for evaluation of generalized weakness and confusion that was noted today in the setting of the patient having fatigue with generalized weakness where she reports she barely could get out of bed but did manage to walk to the bathroom last night and returned to her bed and then this morning was found on the commode by her daughter who is unsure how long she may have been there. Patient feels that she probably went to the bathroom this morning and so was not there long but it is not definitive whether or not she had been there ever since last night. They deny any fall or syncope. They deny any fevers, chills, cough or congestion. She reports she has been having to urinate frequently and wonders whether or not she may have a urinary infection. She denies any nausea or vomiting or diarrhea. Her daughter reports that she was somewhat confused when she found her though has improved upon arriving to the emergency department. On arrival the patient is no acute distress, afebrile with heart rate in the 120s and vital signs otherwise stable. She appears clinically dry. She has no focal neurologic deficits. She exhibits generalized weakness that is symmetric in all extremities. EKG demonstrates atrial flutter with variable AV block with rate in the 100s and otherwise no overt acute ischemia. Chest x-ray demonstrates a left upper lobe airspace consolidation consistent with pneumonia. WBC 15.9K with neutrophil predominance. H/H and platelets within normal limits. Chemistry without metabolic acidosis. BUN/creatinine> 30 consistent with pat ient's clinically dry appearance. Total bili 1.5 and AST and ALT 79 and 81, respectively with normal alk phos, similar to prior values. Lipase not elevated. TSH within normal limits. Given the patient's pneumonia with symptoms generalized weakness and confusion the patient and family agree with plan to admit the patient for further management. Procalcitonin is not significantly elevated. Blood cultures drawn. Case was discussed with Jean-Claude Jose PAC, with Jean-Claude Suggs hospitalist who will evaluate the patient for admission. UA also resulting positive for infection with nitrites, WBCs and 4+ bacteria. Antibiotic treatment per admitting team. Triage Nursing notes reviewed and agree them. Prior/outside medical records reviewed Vital Signs: reviewed Differential diagnosis: Infection, dehydration, metabolic abnormality, hypo/hyperglycemia, electrolyte disturbance, anemia, hypoxia, cardiac sources, intracerebral event, toxicologic, neurologic, as well as other pathologies. ER treatment provided: See below. Diagnostics interpreted by me: ECG: Atrial flutter with variable AV block, 113 bpm, nonspecific T wave abnormality, no overt ST elevation or depression, QTc 419, QRS 66 Cardiac Monitoring: An order for continuous cardiac monitoring was placed and demonstrated atrial flutter, 113 bpm, no ectopy. Laboratory studies: See below Imaging studies: See below Consultation(s): Case was discussed with Jean-Claude Jose, with Jean-lCaude Suggs hospitalist who will evaluate the patient for admission. HPI: The patient is a pleasant 87-year-old woman with past medical history of hypertension, hyperlipidemia, vertigo, atrial fibrillation on Eliquis who presents to the emergency department via EMS and then accompanied by her daughter for evaluation of generalized weakness and confusion that was noted today in the setting of the patient having fatigue with generalized weakness where she reports she barely could get out of bed but did manage to walk to the bathroom last night and returned to her bed and then this morning was found on the commode by her daughter who is unsure how long she may have been there. Patient feels that she probably went to the bathroom this morning and so was not there long but it is not definitive whether or not she had been there ever since last night. They deny any fall or syncope. They deny any fevers, chills, cough or congestion. She reports she has been having to urinate frequently and wonders whether or not she may have a urinary infection. She denies any nausea or vomiting or diarrhea. Her daughter reports that she was somewhat confused when she found her though has improved upon arriving to the emergency department. ROS: See above HPI for pertinent positives & negatives. A total of 10 systems reviewed and were otherwise negative. VITALS:See Below PHYSICAL EXAMINATION: GENERAL: Awake, alert, fatigued-appearing, in no distress HENT: Normocephalic, atraumatic. Oropharynx with dry mucous membranes and otherwise unremarkable. EYES: Normal conjunctiva. Sclera non-icteric. EOMI. No nystamgus. PEARRL. NECK: Supple. No nuchal rigidity. FROM. No JVD. RESPIRATORY: Clear to auscultation. CARDIAC: Regular rate, irregular rhythm. Extremities warm and well perfused. Pulses equal. ABDOMEN: Soft, non-distended. No tenderness to palpation. No rebound or guarding. No masses. RECTAL: Deferred. MUSCULOSKELETAL: Chest examination reveals no tenderness. The back is symmetrical on inspection without obvious abnormality. There is no CVA tenderness to palpation. No joint edema. LOWER EXTREMITIES: Calves are equal size bilaterally and non-tender. No edema. No discoloration. NEURO: No focal sensory or motor deficits noted. Cranial nerves II-XII grossly intact. Generalized weakness with 4+/5 strength x4 extremities. SKIN: No rash or jaundice noted. 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 Beliefs That Will Affect Care: None marital status: / Current Living Situation: Alone Feels Safe at Home: Yes Assistive Devices: Glasses and Walker Allergies Allergies Allergy/AdvReac Type Severity Reaction Status Date / Time Penicillins Allergy Unknown UNKNOWN Verified 11/21/22 17:26 propoxyphene Allergy Unknown UNKNOWN Verified 11/21/22 17:26 quinine Allergy Unknown Unknown Verified 11/21/22 17:26 morphine AdvReac Severe extreme Verified 11/21/22 17:26 confusion Cephalosporins AdvReac Intermediate DIZZINESS Verified 11/21/22 17:26 & NAUSEA lisinopril AdvReac Intermediate COUGH Verified 11/21/22 17:26 simvastatin AdvReac Intermediate MUSCLE PAIN Verified 11/21/22 17:26 Home Meds Home Medications Medication Instructions Recorded Confirmed atorvastatin 10 mg tablet 10 mg PO HS 04/19/20 11/21/22 fluoxetine 20 mg capsule 20 mg PO QAM 04/19/20 11/21/22 apixaban 2.5 mg tablet (Eliquis) 2.5 mg PO BID 11/21/22 11/21/22 calcium carbonate 600 mg-vitamin 3 tab PO DAILY 11/21/22 11/21/22 D3 5 mcg (200 unit) tablet iron,carbonyl 65 mg-vitamin C 125 1 tab PO DAILY 11/21/22 11/21/22 mg tablet,delayed release (Vitron-C) multivitamin 1 tab PO DAILY 11/21/22 11/21/22 Previous Rx's Medication Instructions Recorded acetaminophen 325 mg tablet 650 mg PO Q6H PRN pain #50 tabs 04/22/20 metoprolol tartrate 100 mg tablet 100 mg PO BID #60 tabs 10/31/21 Results & Data (ED) Vital Signs Vital Signs - 24 hr 11/21/22 14:55 11/21/22 14:55 11/21/22 14:55 Temperature 37.2 C 37.2 C Temperature Source Oral Oral Pulse Rate 122 H 122 H Pulse Rate [Right Finger] 122 H Respiratory Rate 18 18 Respiratory Effort / Characteristics Non-Labored Spontaneous Non-Labored Spontaneous Respiratory Depth Normal Normal Respiratory Pattern Regular Regular Blood Pressure 136/80 Blood Pressure [Right Arm] 136/80 Blood Pressure Mean 98 Blood Pressure Mean [Right Arm] 98 Blood Pressure Position Lying Blood Pressure Position [Right Arm] Lying Pulse Oximetry 94 94 94 Oxygen Delivery Method Room Air Room Air Room Air Sepsis Recent Fever Within 48 Hours No Sepsis New/Unexplained Change in Mental Status No Sepsis Action Taken by Nursing No Action Required 11/21/22 18:15 Temperature Temperature Source Pulse Rate Pulse Rate [Right Finger] 105 H Respiratory Rate 18 Respiratory Effort / Characteristics Non-Labored Spontaneous Respiratory Depth Normal Respiratory Pattern Regular Blood Pressure Blood Pressure [Right Arm] 135/87 Blood Pressure Mean Blood Pressure Mean [Right Arm] 103 Blood Pressure Position Blood Pressure Position [Right Arm] Sitting Pulse Oximetry 92 Oxygen Delivery Method Room Air Sepsis Recent Fever Within 48 Hours Sepsis New/Unexplained Change in Mental Status Sepsis Action Taken by Nursing Laboratory Data 11/21/22 15:04 11/21/22 15:04 Lab Results 11/21/22 11/21/22 11/21/22 Range/Units 15:04 15:04 15:04 WBC 15.90 H (4.8-10.8) K/ul RBC 4.13 L (4.20-5.40) M/uL Hgb 13.3 (12.0-16.0) g/dl Hct 39.2 (37.0-47.0) % MCV 94.9 (80.0-100.0) fL MCH 32.2 (25.0-34.0) pg MCHC 33.9 (32.0-36.0) g/dL RDW Std Deviation 43.7 (36.4-46.3) fL RDW Coeff of [place] 12.6 (11.5-14.5) % Plt Count 136 (130-400) K/uL MPV 11.4 (9.4-12.4) fL Immature Gran % (Auto) 0.4 % Neut % (Auto) 87.5 % Lymph % (Auto) 3.6 % [place] % (Auto) 7.9 % Eos % (Auto) 0.3 % Baso % (Auto) 0.3 % Neut # (Auto) 13.93 H (1.40-6.50) K/uL Lymph # (Auto) 0.57 L (1.2-3.4) K/uL [place] # (Auto) 1.25 H (0.11-0.59) K/uL Eos # (Auto) 0.04 (0-0.50) K/uL Baso # (Auto) 0.04 (0-0.2) K/uL Immature Gran # (Auto) 0.07 (0.01-0.20) K/uL PT 11.8 (9.0-12.0) Seconds INR 1.1 (0.9-1.1) Sodium 142 (136-145) mmol/L Potassium 4.1 (3.5-5.1) mmol/L Chloride 104 (98-107) mmol/L Carbon Dioxide 30 (21-32) mmol/L Anion Gap 8 (3-11) BUN 27 H (6-23) mg/dl Creatinine 0.88 (0.6-1.2) mg/dl Est Cr Clr Drug Dosing 47.8 ml/min Est GFR ( Amer) 68.0 ml/min Est GFR (Non-Af Amer) 58.7 ml/min BUN/Creatinine Ratio 30.7 H (10-20) Glucose 148 H (70-99(Fasting)) mg/dl Calcium 9.6 (8.5-10.1) mg/dl Phosphorus 3.1 (2.5-4.9) mg/dl Magnesium 1.7 (1.7-2.4) mg/dl Total Bilirubin 1.5 H (0.2-1.0) mg/dl AST 79 H (13-39) U/L ALT 81 H (7-52) U/L Alkaline Phosphatase 89 (34-104) U/L Total Creatine Kinase 176 (26-192) U/L Troponin I High Sens 6.7 (0-14) pg/ml Total Protein 7.9 (6.0-8.3) gm/dl Albumin 4.3 (3.4-5.0) gm/dl Globulin 3.6 (2.5-4.0) gm/dl Albumin/Globulin Ratio 1.2 (0.9-2) Lipase 22 (11-82) U/L Procalcitonin (0-0.5) ng/ml TSH (0.300-4.500) uIu/ml Urine Color Urine Appearance (Clear) Urine pH (4.5-7.5) Ur Specific [place] (1.000-1.030) Urine Protein (Negative) Urine Glucose (UA) (Negative) Urine Ketones (Negative) Urine Blood (Negative) Urine Nitrite (Negative) Urine Bilirubin (Negative) Urine Urobilinogen (Negative) Ur Leukocyte Esterase (Negative) Urine WBC (Auto) (0-5) /hpf Urine RBC (Auto) (0-4) /hpf U Hyaline Cast (Auto) (0-5) /lpf U Epithel Cells (Auto) (0-5) /lpf Urine Bacteria (Auto) (Negative) Urine Yeast SARS-CoV-2, RNA, NAAT (NEGATIVE) 11/21/22 11/21/22 11/21/22 Range/Units 15:04 15:04 16:40 WBC (4.8-10.8) K/ul RBC (4.20-5.40) M/uL Hgb (12.0-16.0) g/dl Hct (37.0-47.0) % MCV (80.0-100.0) fL MCH (25.0-34.0) pg MCHC (32.0-36.0) g/dL RDW Std Deviation (36.4-46.3) fL RDW Coeff of [place] (11.5-14.5) % Plt Count (130-400) K/uL MPV (9.4-12.4) fL Immature Gran % (Auto) % Neut % (Auto) % Lymph % (Auto) % [place] % (Auto) % Eos % (Auto) % Baso % (Auto) % Neut # (Auto) (1.40-6.50) K/uL Lymph # (Auto) (1.2-3.4) K/uL [place] # (Auto) (0.11-0.59) K/uL Eos # (Auto) (0-0.50) K/uL Baso # (Auto) (0-0.2) K/uL Immature Gran # (Auto) (0.01-0.20) K/uL PT (9.0-12.0) Seconds INR (0.9-1.1) Sodium (136-145) mmol/L Potassium (3.5-5.1) mmol/L Chloride (98-107) mmol/L Carbon Dioxide (21-32) mmol/L Anion Gap (3-11) BUN (6-23) mg/dl Creatinine (0.6-1.2) mg/dl Est Cr Clr Drug Dosing ml/min Est GFR ( Amer) ml/min Est GFR (Non-Af Amer) ml/min BUN/Creatinine Ratio (10-20) Glucose (70-99(Fasting)) mg/dl Calcium (8.5-10.1) mg/dl Phosphorus (2.5-4.9) mg/dl Magnesium (1.7-2.4) mg/dl Total Bilirubin (0.2-1.0) mg/dl AST (13-39) U/L ALT (7-52) U/L Alkaline Phosphatase (34-104) U/L Total Creatine Kinase (26-192) U/L Troponin I High Sens (0-14) pg/ml Total Protein (6.0-8.3) gm/dl Albumin (3.4-5.0) gm/dl Globulin (2.5-4.0) gm/dl Albumin/Globulin Ratio (0.9-2) Lipase (11-82) U/L Procalcitonin 0.44 (0-0.5) ng/ml TSH 0.892 (0.300-4.500) uIu/ml Urine Color Yellow Urine Appearance Turbid A (Clear) Urine pH 5.5 (4.5-7.5) Ur Specific [place] 1.019 (1.000-1.030) Urine Protein 1+ H (Negative) Urine Glucose (UA) Negative (Negative) Urine Ketones Trace H (Negative) Urine Blood 2+ H (Negative) Urine Nitrite Positive A (Negative) Urine Bilirubin Negative (Negative) Urine Urobilinogen Negative (Negative) Ur Leukocyte Esterase 3+ H (Negative) Urine WBC (Auto) >30 H (0-5) /hpf Urine RBC (Auto) 5-10 H (0-4) /hpf U Hyaline Cast (Auto) 1-5 (0-5) /lpf U Epithel Cells (Auto) 20-30 H (0-5) /lpf Urine Bacteria (Auto) 4+ H (Negative) Urine Yeast Not Reportable SARS-CoV-2, RNA, NAAT (NEGATIVE) 11/21/22 Range/Units 18:14 WBC (4.8-10.8) K/ul RBC (4.20-5.40) M/uL Hgb (12.0-16.0) g/dl Hct (37.0-47.0) % MCV (80.0-100.0) fL MCH (25.0-34.0) pg MCHC (32.0-36.0) g/dL RDW Std Deviation (36.4-46.3) fL RDW Coeff of [place] (11.5-14.5) % Plt Count (130-400) K/uL MPV (9.4-12.4) fL Immature Gran % (Auto) % Neut % (Auto) % Lymph % (Auto) % [place] % (Auto) % Eos % (Auto) % Baso % (Auto) % Neut # (Auto) (1.40-6.50) K/uL Lymph # (Auto) (1.2-3.4) K/uL [place] # (Auto) (0.11-0.59) K/uL Eos # (Auto) (0-0.50) K/uL Baso # (Auto) (0-0.2) K/uL Immature Gran # (Auto) (0.01-0.20) K/uL PT (9.0-12.0) Seconds INR (0.9-1.1) Sodium (136-145) mmol/L Potassium (3.5-5.1) mmol/L Chloride (98-107) mmol/L Carbon Dioxide (21-32) mmol/L Anion Gap (3-11) BUN (6-23) mg/dl Creatinine (0.6-1.2) mg/dl Est Cr Clr Drug Dosing ml/min Est GFR ( Amer) ml/min Est GFR (Non-Af Amer) ml/min BUN/Creatinine Ratio (10-20) Glucose (70-99(Fasting)) mg/dl Calcium (8.5-10.1) mg/dl Phosphorus (2.5-4.9) mg/dl Magnesium (1.7-2.4) mg/dl Total Bilirubin (0.2-1.0) mg/dl AST (13-39) U/L ALT (7-52) U/L Alkaline Phosphatase (34-104) U/L Total Creatine Kinase (26-192) U/L Troponin I High Sens (0-14) pg/ml Total Protein (6.0-8.3) gm/dl Albumin (3.4-5.0) gm/dl Globulin (2.5-4.0) gm/dl Albumin/Globulin Ratio (0.9-2) Lipase (11-82) U/L Procalcitonin (0-0.5) ng/ml TSH (0.300-4.500) uIu/ml Urine Color Urine Appearance (Clear) Urine pH (4.5-7.5) Ur Specific [place] (1.000-1.030) Urine Protein (Negative) Urine Glucose (UA) (Negative) Urine Ketones (Negative) Urine Blood (Negative) Urine Nitrite (Negative) Urine Bilirubin (Negative) Urine Urobilinogen (Negative) Ur Leukocyte Esterase (Negative) Urine WBC (Auto) (0-5) /hpf Urine RBC (Auto) (0-4) /hpf U Hyaline Cast (Auto) (0-5) /lpf U Epithel Cells (Auto) (0-5) /lpf Urine Bacteria (Auto) (Negative) Urine Yeast SARS-CoV-2, RNA, NAAT NEGATIVE (NEGATIVE) Administered Medications Sodium Chloride (Nss) 500 mls @ 80 mls/hr IV .Q6H15M MILLY Stop: 11/22/22 00:29 Last Admin: 11/21/22 18:57 Dose: 80 mls/hr Documented By: SOLEDAD Levofloxacin/Dextrose (Levaquin/D5w) 750 mg in 150 mls @ 100 mls/hr IV Q24H MILLY Stop: 11/28/22 18:59 Last Admin: 11/21/22 19:21 Dose: 100 mls/hr Documented By: SOLEDAD Discontinued Medications Sodium Chloride (Nss) 500 mls @ 999 mls/hr IV .Q31M ONE Stop: 11/21/22 15:20 Last Infusion: 11/21/22 15:56 Dose: 0 mls/hr Documented By: JORGE L Admin: 11/21/22 15:22 Dose: 999 mls/hr Documented By: SOLEDAD Metoprolol Tartrate (Metoprolol Tartrate 100 Mg Tab) 100 mg PO ONE ONE Stop: 11/21/22 18:13 Last Admin: 11/21/22 18:56 Dose: 100 mg Documented By: SOLEDAD Imaging Data Radiologist's Impression: Chest X-Ray 11/21/22 14:49 SINGLE VIEW CHEST CLINICAL HISTORY: Syncope. FINDINGS: An AP, portable, upright chest radiograph is compared to study dated 10/26/2021. A hiatal hernia is noted. The heart is enlarged noting atherosclerotic calcification of the thoracic ureter. The pulmonary vasculature is noncongested. Chronic interstitial thickening similar to previous. There is airspace consolidation in the left upper lung. The right lung appears clear noting bibasilar atelectasis. No large pleural effusion or pneumothorax is seen. The skeletal structures are osteopenic. The bony thorax is grossly intact. Arthritic change is noted in the shoulders. IMPRESSION: 1. Cardiomegaly without radiographic evidence of congestive failure. 2. Left upper lobe airspace consolidation is new from previous. The appearance suggests pneumonia/aspiration pneumonitis. Clinical correlation will be required and radiographic follow-up to resolution is recommended. ACT 112: Negative or not required by law. Electronically signed by: Jim Ruff M.D. 11/21/2022 3:21 PM Discharge Plan Visit Data Chief Complaint: Syncope (Near Syncope) Stated Complaint: NEAR SYNCOPE, DIZZINESS ED Provider: Brandon Huff Discharge Problem: Pneumonia, Chronic atrial fibrillation, Acute UTI, Weakness Forms Stand Alone Forms: [facility] Cell>Point Prescriptions Prescriptions: No Action atorvastatin 10 mg tablet 10 mg PO HS fluoxetine 20 mg capsule 20 mg PO QAM acetaminophen 325 mg Tablet 650 mg PO Q6H PRN (Reason: pain) Qty: 50 0RF metoprolol tartrate 100 mg Tablet 100 mg PO BID Qty: 60 1RF multivitamin Tablet 1 tab PO DAILY Eliquis 2.5 mg tablet 2.5 mg PO BID calcium carbonate-vitamin D3 [Calcium + D] 600 mg-5 mcg (200 unit) Tablet 3 tab PO DAILY Vitron-C 65 mg iron- 125 mg Tablet,Delayed Release (Dr/Ec) 1 tab PO DAILY Referrals Referrals: Redd Smiley MD [Primary Care Provider] -
[2022-11-21 17:10] LABS: Appearance Urine Turbid (Clear); Bacteria Urine Automated 4+ (Negative); Bilirubin Urine Negative (Negative); Blood Urine 2+ (Negative); Color Urine Yellow; Epithelial Cell Urine Auto 20-30 /lpf (0-5); Glucose Urine UA Negative (Negative); Ketones Urine Trace (Negative); Leukocyte Esterase Urine 3+ (Negative); Nitrite Urine Positive (Negative); Protein Urine 1+ (Negative); Specific Gravity Urine 1.019 (1.000-1.030); Urobilinogen Urine Negative (Negative); WBC Urine Automated >30 /hpf (0-5); pH Urine 5.5 (4.5-7.5)
[2022-11-21 17:53] LABS: Troponin I High Sensitivity 6.7 pg/ml (0-14)
[2022-11-21] MEDS ORDERED: METOPROLOL TARTRATE 100 MG TAB PO ONE (18:12)
[2022-11-21] MEDS ORDERED: SODIUM CHLORIDE 0.9% 500 ML IV SCH (18:15)
--- NOTE | 2022-11-21 18:54 | History & Physical Report ---
Date of Service November 21, 2022 Assessment & Plan (1) Pneumonia: (2) UTI (urinary tract infection): Plan: Admit to telemetry Patient presenting from home with reports of generalized weakness, dizziness. In the ED, UA suggestive of UTI and CXR showing left upper lobe consolidation. Does meet sepsis criteria with leukocytosis (15K) and tachycardia however clinically patient does not appear toxic. Procal 0.44. Lactate pending. Given PCN and cephalosporin allergy, will start Levaquin to cover pneumonia and UTI Follow cultures Gentle IVF PT/OT (3) Elevated LFTs: Plan: Total bili 1.5, AST 79, ALT 81, alk phos 89 No abdominal complaints CK WNL Hold statin Trend LFTs (4) Chronic atrial fibrillation: Plan: Rates mildly elevated likely due to acute illness Will give home dose metoprolol now and monitor response Continue metoprolol tartrate 100 mg BID On Eliquis (5) HLD (hyperlipidemia): Plan: Holding statin due to elevated LFTs (6) Anxiety: Plan: Will hold fluoxetine while receiving Levaquin as above to avoid QT prolongation DVT PROPHYLAXIS On Eliquis History of Present Illness Chief Complaint: Generalized weakness Primary Care Provider: Redd Smiley MD 87-year-old female with PMH atrial fibrillation anticoagulated on Eliquis, dyslipidemia, HTN, and other problems listed below who presents to the ED for evaluation of generalized weakness. Patient reports that last evening, she developed generalized weakness, dizziness, and shakiness. Reports that she had gotten up to use the bathroom at some point in time during the night but was nervous to stand up from the toilet due to fear of falling. Patient's daughter found her in the bathroom on the toilet at 11 AM. Patient was also mildly confused. Patient was then brought to the ED for further evaluation. Patient notes increased urinary frequency over the past few days. Denies dysuria. Also reports a mild cough productive for blood-tinged sputum. Patient denies shortness of breath. No fevers or chills. Reports feeling palpitations today. No chest pain. Denies lightheadedness or syncopal event. No falls. Denies abdominal pain, nausea, vomiting, diarrhea. In the ED, labs show WBC 15 K. UA suggestive of UTI. CXR shows left upper lobe consolidation. Patient was given IVF. Allergies Allergy/AdvReac Type Severity Reaction Status Date / Time Penicillins Allergy Unknown UNKNOWN Verified 11/21/22 17:26 propoxyphene Allergy Unknown UNKNOWN Verified 11/21/22 17:26 quinine Allergy Unknown Unknown Verified 11/21/22 17:26 morphine AdvReac Severe extreme Verified 11/21/22 17:26 confusion Cephalosporins AdvReac Intermediate DIZZINESS Verified 11/21/22 17:26 & NAUSEA lisinopril AdvReac Intermediate COUGH Verified 11/21/22 17:26 simvastatin AdvReac Intermediate MUSCLE PAIN Verified 11/21/22 17:26 Home Medications Medication Instructions Recorded Confirmed Type atorvastatin 10 mg tablet 10 mg PO HS 04/19/20 11/21/22 History fluoxetine 20 mg capsule 20 mg PO QAM 04/19/20 11/21/22 History acetaminophen 325 mg tablet 650 mg PO Q6H PRN pain #50 tabs 04/22/20 11/21/22 Rx metoprolol tartrate 100 mg tablet 100 mg PO BID #60 tabs 10/31/21 11/21/22 Rx apixaban 2.5 mg tablet (Eliquis) 2.5 mg PO BID 11/21/22 11/21/22 History calcium carbonate 600 mg-vitamin 3 tab PO DAILY 11/21/22 11/21/22 History D3 5 mcg (200 unit) tablet iron,carbonyl 65 mg-vitamin C 125 1 tab PO DAILY 11/21/22 11/21/22 History mg tablet,delayed release (Vitron-C) multivitamin 1 tab PO DAILY 11/21/22 11/21/22 History Past Med/Surg History Medical History Anxiety Chronic atrial fibrillation Closed fracture of right hip COVID-19 GERD (gastroesophageal reflux disease) HLD (hyperlipidemia) HTN (hypertension) Surgical History H/O spinal fusion History of hip surgery Left History of total right hip replacement Hx of appendectomy Family History Other Diabetes Heart disease Hypertension Social History Smoking Status: Never smoker Hx Alcohol Use: No Hx Substance Use: No Preferred Language: Danish Communication Ability: Effective Manager Quality Improvement Required: No Beliefs That Will Affect Care: None marital status: / Current Living Situation: Alone Feels Safe at Home: Yes Assistive Devices: Glasses and Walker Review of Systems Review of Systems: ROS per HPI, all other systems reviewed and negative Physical Exam Constitutional: WD/WN, vitals as above no acute distress Eyes: PERRL, conjunctivae normal, anicteric sclerae Respiratory: normal respiratory effort; no respiratory distress Auscultation: + diminished lung sounds Cardiovascular: Rate/Rhythm: + tachycardic and + irregularly irregular Vessels: normal peripheral pulses Extremities: no edema Gastrointestinal (Abdomen): normal bowel sounds, soft, nontender, no hepatosplenomegaly Musculoskeletal: no cyanosis or clubbing, extremities motor strength 5/5 Skin: no rashes, warm and dry Neurologic: PERRL, EOMI, accommodation nl, no face palsy, no dysarthria Psychiatric: A+Ox3, euthymic affect Results & Data Results & Data ([facility]) Vital Signs (Past 12 Hours) Vital Signs Temp Pulse Pulse Resp BP BP Pulse Ox 11/21/22 18:15 105 H 18 135/87 92 11/21/22 14:55 37.2 C 122 H 18 136/80 94 11/21/22 14:55 122 H 94 11/21/22 14:55 37.2 C 122 H 18 136/80 94 O2 Del Method 11/21/22 18:15 Room Air 11/21/22 14:55 Room Air 11/21/22 14:55 Room Air 11/21/22 14:55 Room Air Laboratory Results Short CBC 11/21/22 Range/Units 15:04 WBC 15.90 H (4.8-10.8) K/ul Hgb 13.3 (12.0-16.0) g/dl Hct 39.2 (37.0-47.0) % Plt Count 136 (130-400) K/uL BMP 11/21/22 15:04 Sodium 142 Potassium 4.1 Chloride 104 Carbon Dioxide 30 BUN 27 H Creatinine 0.88 Glucose 148 H Calcium 9.6 Liver Function 11/21/22 Range/Units 15:04 Total Bilirubin 1.5 H (0.2-1.0) mg/dl AST 79 H (13-39) U/L ALT 81 H (7-52) U/L Alkaline Phosphatase 89 (34-104) U/L Albumin 4.3 (3.4-5.0) gm/dl Urine 11/21/22 Range/Units 16:40 Urine Color Yellow Urine Appearance Turbid A (Clear) Urine pH 5.5 (4.5-7.5) Ur Specific [place] 1.019 (1.000-1.030) Urine Protein 1+ H (Negative) Urine Glucose (UA) Negative (Negative) Diagnostic Findings Chest X-Ray 11/21/22 14:49 SINGLE VIEW CHEST CLINICAL HISTORY: Syncope. FINDINGS: An AP, portable, upright chest radiograph is compared to study dated 10/26/2021. A hiatal hernia is noted. The heart is enlarged noting atherosclerotic calcification of the thoracic ureter. The pulmonary vasculature is noncongested. Chronic interstitial thickening similar to previous. There is airspace consolidation in the left upper lung. The right lung appears clear noting bibasilar atelectasis. No large pleural effusion or pneumothorax is seen. The skeletal structures are osteopenic. The bony thorax is grossly intact. Arthritic change is noted in the shoulders. IMPRESSION: 1. Cardiomegaly without radiographic evidence of congestive failure. 2. Left upper lobe airspace consolidation is new from previous. The appearance suggests pneumonia/aspiration pneumonitis. Clinical correlation will be required and radiographic follow-up to resolution is recommended. ACT 112: Negative or not required by law. Electronically signed by: Jim Ruff M.D. 11/21/2022 3:21 PM Code Status & VTE Plan Code Status Patient is a DNR as per my discussion with her. VTE Prophylaxis Plan VTE Prophylaxis will be ordered: No Supervising Physician Co-Signing Physician Notes I have seen and examined the patient and have discussed the case with the provider above. I agree with the assessment and plan as stated with the following exceptions. Patient is an 87-year-old female presenting with generalized weakness found to have a urinary tract infection on chest x-ray. She reports ongoing issues with increased urinary frequency but no other dysuria, fevers chills or other issues. She also has been coughing and had scant hemoptysis reported in the last couple of days. After initial treatment in the ER she was feeling well and is reporting no acute issues that are ongoing aside from weakness. She is an elderly thin frail female in no acute distress. She is mentating clearly and is oriented. Pulmonary auscultation reveals clear lungs to auscultation bilaterally. Cardiac exam reveals irregular rate and rhythm, S1-S2 heard with no evidence of murmurs. There is no peripheral pulmonary edema. She is moving all extremities equally and is able to sit up independently. Abdomen is benign. Work-up in the ER today reveals a CBC with a leukocytosis of 15.9 K, H&H is normal. There is a left shift on differential. There is no evidence of coagulopathy. There is possibly some dehydration on chemistry with a BUN of 27 and creatinine of 0.88 giving a BUN to creatinine ratio of 30.7. Otherwise chemistry is within normal limits. Lactate is pending. Magnesium is 1.7. Total bilirubin is 1.5 with an AST of 79 and ALT of 81. Urinalysis is positive for infection. COVID swab is negative. Chest x-ray reveals left upper lobe airspace consolidation suggestive of pneumonia. An EKG reveals atrial flutter with nausea variable AV block but no ST changes that would be consistent with ischemia. 1. Generalized weakness 2/2 UTI and MOISE pneumonia 2. Transaminitis 3. Chronic atrial fibrillation on on apixaban Cont with Levaquin to treat infections given history of PCN and cephalosporin allergies on file, pending clinical improvement and culture results. PT/OT for weakness. Per outpatient record review, she doesn't have an elevation in transaminases or bilirubin historically. The etiology of this is unclear and agree with holding statin and trending in am. Will also obtain RUQ u/s to start the workup. DO Luis
[2022-11-21] MEDS: levoFLOXacin/D5W 750 MG/150 ML BAG IV SCH (19:21)
[2022-11-21] MEDS ORDERED: ACETAMINOPHEN 325 MG TAB PO PRN (22:02)
[2022-11-21] MEDS: ATORVASTATIN 10 MG TAB PO SCH (22:43)
[2022-11-21] MEDS: APIXABAN 2.5 MG TAB PO SCH (22:43)
--- NOTE | 2022-11-22 08:15 | Ultrasound Report ---
US liver CLINICAL HISTORY: elevated LFTs COMPARISON STUDY: No previous studies for comparison. FINDINGS: The liver is sonographically normal. There is no biliary ductal dilatation. The common bile duct measures 4 mm in caliber. The gallbladder is normal. There are no gallstones. Pancreas is unrem arkable by sonography. There is no right hydronephrosis. IMPRESSION: No significant abnormality within the right upper quadrant by sonography. ACT 112: Negative or not required by law. Electronically signed by: Isai Huang M.D. 11/22/2022 8:13 AM
[2022-11-22 08:26] LABS: Albumin Globulin Ratio 1.1 (0.9-2); Albumin Level 3.5 gm/dl (3.4-5.0); BUN Creatinine Ratio 28.6 (10-20); Bilirubin,Total 1.7 mg/dl (0.2-1.0); Creatinine Clr Calc Pharmacy 61.7 ml/min; Est GFR (African American) 92.8 ml/min; Est GFR (Non-African American) 80.1 ml/min; Globulin 3.2 gm/dl (2.5-4.0); Potassium 3.9 mmol/L (3.5-5.1); Total Protein 6.7 gm/dl (6.0-8.3)
[2022-11-22 09:00] LABS: Hematocrit (blood only) 35.7 % (37.0-47.0); Hemoglobin 11.9 g/dl (12.0-16.0); Mean Corpuscular Hemoglobin 31.8 pg (25.0-34.0); Mean Corpuscular Hgb Conc 33.3 g/dL (32.0-36.0); Mean Corpuscular Volume 95.5 fL (80.0-100.0); Mean Platelet Volume 11.3 fL (9.4-12.4); Platelet Count 121 K/uL (130-400); RDW Coefficient of Variation 12.7 % (11.5-14.5); RDW Standard Deviation 44.3 fL (36.4-46.3); Red Blood Count 3.74 M/uL (4.20-5.40); White Blood Count 10.22 K/ul (4.8-10.8)
[2022-11-22] MEDS: METOPROLOL TARTRATE 100 MG TAB PO SCH ×2 (09:23→20:41)
[2022-11-22] MEDS: APIXABAN 2.5 MG TAB PO SCH ×2 (10:25→20:41)
--- NOTE | 2022-11-22 12:26 | Electrocardiogram Report ---
Test Reason : Blood Pressure : / mmHG Vent. Rate : 113 BPM Atrial Rate : 312 BPM P-R Int : 000 ms QRS Dur : 066 ms QT Int : 306 ms P-R-T Axes : 000 016 038 degrees QTc Int : 419 ms Poor data quality, interpretation may be adversely affected Atrial flutter with variable A-V block Diffuse Nonspecific T wave abnormality Abnormal ECG When compared with ECG of 26-OCT-2021 05:56, Atrial flutter has replaced Atrial fibrillation HR has increased by 17 bpm Confirmed by Ed Diop ([id number]) on 11/22/2022 12:26:10 PM Referred By: REFERRED SELF Confirmed By:Ed Diop
--- NOTE | 2022-11-22 13:38 | Hospitalist Progress Note ---
Date of Service November 22, 2022 Assessment & Plan (1) Acute UTI: (2) Weakness: Plan 87-year-old lady with PMH of A-fib on Eliquis, HLD, HTN presented to the ED 11/21 for evaluation of generalized weakness and found to have UTI and pneumonia in the ED. She is being managed for the following: Pneumonia: UTI (urinary tract infection) Sepsis POA: WBC and heart rate elevated. Pro-Chuy 0.44. Lactate normal. [At admission]. Lactate normal. Patient presenting from home with reports of generalized weakness, dizziness. In the ED, UA suggestive of UTI and CXR showing left upper lobe consolidation. Given PCN and cephalosporin allergy, started 11/22 Levaquin to cover pneumonia and UTI Follow admitting urine culture and blood culture Gentle IVF due to tachycardia persisting likely secondary to acute illness PT/OT as able. Follow-up x-ray in 6-week to document resolution recommended. (3) Elevated LFTs: Elevated at presentation likely secondary to acute illness No abdominal complaints, ultrasound liver WNL at admission CK WNL, holding statin LFT trending down. CMP in a week upon discharge. (4) Chronic atrial fibrillation: Rates mildly elevated likely due to acute illness Continue with home dose of metoprolol, continue with gentle IV fluid. Continue with Eliquis. (5) HLD (hyperlipidemia): Plan: Holding statin due to elevated LFTs (6) Anxiety: Plan: Will hold fluoxetine while receiving Levaquin as above to avoid QT prolongation DNR/DNI On Eliquis Dispo: PT/OT, CM to assist with DC planning, expect discharge in next 1 to 2 days with improvement of her acute illness/tachy. Admission and Anticipated Discharge Date Admission Date: November 21, 2022 Subjective Patient seen and examined at bedside as a follow-up for pneumonia and UTI. Patient was lying in bed, on room air, NAD, reports no new acute event overnight, reports eating okay and moving bowels okay, reports decreasing cough, denies any chest pain or sore throat or palpitation, denies any belly pain, denies other review of symptoms. Physical Exam Physical Exam: GENERAL: Alert and oriented x3. NAD, on RA. HEENT: No pallor, no icterus. Pupils equal, round and reactive to light. Oral mucosa moist. NECK: No JVD, no neck masses. HEART: S1 and S2 heard. irregular rate and rhythm, tachy. No murmur, no gallop. RESPIRATORY SYSTEM: Normal AP diameter. No accessory muscle use. No wheezing, no crackles. ABDOMEN: Soft, bowel sounds present, nontender, no distention. CENTRAL NERVOUS SYSTEM: No facial droop. Speech is clear. Obeys simple commands. Moves extremities. EXTREMITIES: No edema, no erythema seen. dry legs Results & Data Results & Data ([facility]) Vital Signs (Past 12 Hours) Vital Signs Temp Pulse Pulse Resp BP Pulse Ox O2 Del Method 11/22/22 12:32 36.7 C 122 H 16 127/72 92 Room Air 11/22/22 08:00 Room Air 11/22/22 07:00 104 H 11/22/22 09:19 36.8 C 109 H 18 105/64 93 Room Air 11/22/22 03:00 36.8 C 105 H 18 119/66 91 Room Air
[2022-11-22] MEDS: SODIUM CHLORIDE 0.9% 1000ML 1,000 ML IV SCH (14:10)
[2022-11-22] MEDS ORDERED: AMMONIUM LACTATE 12% LOTION 225 GM BTL EXT PRN (15:21)
[2022-11-22] MEDS: levoFLOXacin/D5W 750 MG/150 ML BAG IV SCH (18:29)
[2022-11-22] MEDS: ATORVASTATIN 10 MG TAB PO SCH (20:42)
[2022-11-23] MEDS: APIXABAN 2.5 MG TAB PO SCH ×2 (08:45→19:43)
[2022-11-23] MEDS: METOPROLOL TARTRATE 100 MG TAB PO SCH ×2 (08:45→19:43)
[2022-11-23 10:11] LABS: Hematocrit (blood only) 35.8 % (37.0-47.0); Hemoglobin 12.1 g/dl (12.0-16.0); Mean Corpuscular Hemoglobin 32.2 pg (25.0-34.0); Mean Corpuscular Hgb Conc 33.8 g/dL (32.0-36.0); Mean Corpuscular Volume 95.2 fL (80.0-100.0); Mean Platelet Volume 10.6 fL (9.4-12.4); Platelet Count 138 K/uL (130-400); RDW Coefficient of Variation 12.7 % (11.5-14.5); RDW Standard Deviation 44.2 fL (36.4-46.3); Red Blood Count 3.76 M/uL (4.20-5.40); White Blood Count 9.12 K/ul (4.8-10.8)
[2022-11-23] MEDS: SODIUM CHLORIDE 0.9% 1000ML 1,000 ML IV SCH (10:23)
[2022-11-23 10:31] LABS: BUN Creatinine Ratio 21.9 (10-20); Calcium 8.9 mg/dl (8.5-10.1); Creatinine Clr Calc Pharmacy 62.1 ml/min; Est GFR (African American) 92.3 ml/min; Est GFR (Non-African American) 79.7 ml/min; Magnesium 1.5 mg/dl (1.7-2.4); Potassium 3.6 mmol/L (3.5-5.1)
[2022-11-23] MEDS ORDERED: POTASSIUM CHLORIDE CRTAB 20 MEQ TABCR PO STA (16:02)
--- NOTE | 2022-11-23 16:04 | Hospitalist Progress Note ---
Date of Service November 23, 2022 Assessment & Plan (1) Acute UTI: (2) Weakness: Plan 87-year-old lady with PMH of A-fib on Eliquis, HLD, HTN presented to the ED 11/21 for evaluation of generalized weakness and found to have UTI and pneumonia in the ED. She is being managed for the following: Pneumonia: UTI (urinary tract infection) Sepsis POA: WBC and heart rate elevated. Pro-Chuy 0.44. Lactate normal. [At admission]. Lactate normal. Patient presenting from home with reports of generalized weakness, dizziness. In the ED, UA suggestive of UTI and CXR showing left upper lobe consolidation. Given PCN and cephalosporin allergy, started 11/22 Levaquin to cover pneumonia and UTI Follow admitting urine culture (e coli) and blood culture Gentle IVF due to tachycardia persisting likely secondary to acute illness, c/w telemetry PT/OT as able. Follow-up x-ray in 6-week to document resolution recommended. (3) Elevated LFTs: Elevated at presentation likely secondary to acute illness No abdominal complaints, ultrasound liver WNL at admission CK WNL, holding statin LFT trending down. CMP in a week upon discharge. Hep panel pending. (4) Chronic atrial fibrillation: Rates mildly elevated likely due to acute illness Continue with home dose of metoprolol, continue with gentle IV fluid. Continue with Eliquis. (5) HLD (hyperlipidemia): Plan: Holding statin due to elevated LFTs (6) Anxiety: Plan: Will hold fluoxetine while receiving Levaquin as above to avoid QT prolongation DNR/DNI On Eliquis Dispo: PT/OT, CM to assist with DC planning, expect discharge in next 1 to 2 days with improvement of her acute illness/tachy. Admission and Anticipated Discharge Date Admission Date: November 21, 2022 Subjective Patient seen and examined at bedside as a follow-up for pneumonia and UTI. Patient was sitting up in chair, on room air, NAD, reports no new acute event overnight, reports eating okay and moving bowels okay, reports decreasing cough, denies any chest pain or sore throat or palpitation, denies any belly pain, denies other review of symptoms. Still tachycardic, will continue w/ ivf. Physical Exam Physical Exam: GENERAL: Alert and oriented x3. NAD, on RA. HEENT: No pallor, no icterus. Pupils equal, round and reactive to light. Oral mucosa moist. NECK: No JVD, no neck masses. HEART: S1 and S2 heard. irregular rate and rhythm, tachy. No murmur, no gallop. RESPIRATORY SYSTEM: Normal AP diameter. No accessory muscle use. No wheezing, no crackles. ABDOMEN: Soft, bowel sounds present, nontender, no distention. CENTRAL NERVOUS SYSTEM: No facial droop. Speech is clear. Obeys simple commands. Moves extremities. EXTREMITIES: No edema, no erythema seen. dry legs Results & Data Results & Data ([facility]) Vital Signs (Past 12 Hours) Vital Signs Temp Pulse Pulse Pulse Resp BP Pulse Ox 11/23/22 15:00 36.5 C 89 18 129/72 94 11/23/22 15:27 88 11/23/22 07:45 11/23/22 11:27 36.7 C 104 H 18 130/83 95 11/23/22 07:49 103 H 11/23/22 07:44 36.4 C L 102 H 20 147/90 H 92 O2 Del Method 11/23/22 15:00 Room Air 11/23/22 15:27 11/23/22 07:45 Room Air 11/23/22 11:27 Room Air 11/23/22 07:49 11/23/22 07:44 Room Air
[2022-11-23] MEDS: MAGNESIUM SULFATE / D5W 1 GM/100 ML BAG IV SCH ×2 (16:25→18:27)
[2022-11-23] MEDS: levoFLOXacin/D5W 750 MG/150 ML BAG IV SCH (18:32)
[2022-11-23] MEDS: ATORVASTATIN 10 MG TAB PO SCH (19:43)
[2022-11-24 06:22] LABS: BUN Creatinine Ratio 22.2 (10-20); Calcium 8.7 mg/dl (8.5-10.1); Creatinine Clr Calc Pharmacy 61.9 ml/min; Est GFR (African American) 92.8 ml/min; Est GFR (Non-African American) 80.1 ml/min; Magnesium 1.9 mg/dl (1.7-2.4); Potassium 3.9 mmol/L (3.5-5.1)
[2022-11-24] MEDS: METOPROLOL TARTRATE 100 MG TAB PO SCH (08:47)
[2022-11-24] MEDS: APIXABAN 2.5 MG TAB PO SCH (08:47)
[2022-11-24 10:47] LABS: HBSAG NON-REACTIVE (NON-REACTIVE); Hepatitis A Antibody IgM NON-REACTIVE (NON-REACTIVE); Hepatitis B Core Antibody IgM NON-REACTIVE (NON-REACTIVE)
[2022-11-24] MEDS ORDERED: METOPROLOL SUCC 25MG EXT REL TAB PO ONE (12:27)
--- NOTE | 2022-11-24 13:39 | Discharge Summary ---
Date of Service November 24, 2022 Admission HPI Per Admitting Provider 87-year-old female with PMH atrial fibrillation anticoagulated on Eliquis, dyslipidemia, HTN, and other problems listed below who presents to the ED for evaluation of generalized weakness. Patient reports that last evening, she developed generalized weakness, dizziness, and shakiness. Reports that she had gotten up to use the bathroom at some point in time during the night but was nervous to stand up from the toilet due to fear of falling. Patient's daughter found her in the bathroom on the toilet at 11 AM. Patient was also mildly confused. Patient was then brought to the ED for further evaluation. Patient notes increased urinary frequency over the past few days. Denies dysuria. Also reports a mild cough productive for blood-tinged sputum. Patient denies shortness of breath. No fevers or chills. Reports feeling palpitations today. No chest pain. Denies lightheadedness or syncopal event. No falls. Denies abdominal pain, nausea, vomiting, diarrhea. In the ED, labs show WBC 15 K. UA suggestive of UTI. CXR shows left upper lobe consolidation. Patient was given IVF. Admission Exam Per Admitting Provider Constitutional: WD/WN, vitals as above no acute distress Eyes: PERRL, conjunctivae normal, anicteric sclerae Respiratory: normal respiratory effort; no respiratory distress Auscultation: + diminished lung sounds Cardiovascular: Rate/Rhythm: + tachycardic and + irregularly irregular Vessels: normal peripheral pulses Extremities: no edema Gastrointestinal (Abdomen): normal bowel sounds, soft, nontender, no hepatosplenomegaly Musculoskeletal: no cyanosis or clubbing, extremities motor strength 5/5 Skin: no rashes, warm and dry Neurologic: PERRL, EOMI, accommodation nl, no face palsy, no dysarthria Psychiatric: A+Ox3, euthymic affect Principal Diagnosis Pneumonia UTI Sepsis POA Chronic A-fib with elevated heart rate in 110s to 120s Discharge Exam GENERAL: Alert and oriented x3. NAD, on RA. HEENT: No pallor, no icterus. Pupils equal, round and reactive to light. Oral mucosa moist. NECK: No JVD, no neck masses. HEART: S1 and S2 heard. irregular rate and rhythm, tachy. No murmur, no gallop. RESPIRATORY SYSTEM: Normal AP diameter. No accessory muscle use. No wheezing, no crackles. ABDOMEN: Soft, bowel sounds present, nontender, no distention. CENTRAL NERVOUS SYSTEM: No facial droop. Speech is clear. Obeys simple commands. Moves extremities. EXTREMITIES: No edema, no erythema seen. dry legs Discharge Data Allergies Allergy/AdvReac Type Severity Reaction Status Date / Time Penicillins Allergy Unknown UNKNOWN Verified 11/21/22 17:26 propoxyphene Allergy Unknown UNKNOWN Verified 11/21/22 17:26 quinine Allergy Unknown Unknown Verified 11/21/22 17:26 morphine AdvReac Severe extreme Verified 11/21/22 17:26 confusion Cephalosporins AdvReac Intermediate DIZZINESS Verified 11/21/22 17:26 & NAUSEA lisinopril AdvReac Intermediate COUGH Verified 11/21/22 17:26 simvastatin AdvReac Intermediate MUSCLE PAIN Verified 11/21/22 17:26 Consultations 11/21/22 17:16 ED Decision to Admit Stat Ordered Studies 11/21/22 20:57 US liver Routine Hospital Course (1) Acute UTI: (2) Weakness: Plan 87-year-old lady with PMH of A-fib on Eliquis, HLD, HTN presented to the ED 11/21 for evaluation of generalized weakness and found to have UTI and pneumonia in the ED. She was managed for the following: Pneumonia: UTI (urinary tract infection) Sepsis POA: WBC and heart rate elevated. Pro-Chuy 0.44. Lactate normal. [At admission]. Lactate normal. Patient presenting from home with reports of generalized weakness, dizziness. In the ED, UA suggestive of UTI and CXR showing left upper lobe consolidation. Given PCN and cephalosporin allergy, started 11/22 Levaquin to cover pneumonia and UTI -- on po levaquin on DC for 4 more days to complete 7 day course. Follow admitting urine culture (e coli) and blood culture - no growth so far Pt reports minimal cough and reports doing better PT/OT as able. DC home w/ home health, CM aware. Follow-up x-ray in 6-week to document resolution recommended. F/u pcp in a week time for eval. (3) Elevated LFTs: Elevated at presentation likely secondary to acute illness No abdominal complaints, ultrasound liver WNL at admission LFT trending down. CMP in a week upon discharge. Hep panel negative (4) Chronic atrial fibrillation: Rates mildly elevated likely due to acute illness Continue with Eliquis. No cardiac s/s. Slightly increased heart rate, metoprolol tartarate changed to succinate on DC curbside d/w cardio. Pt to f/u w/ pcp in a week and get evaled if she needs further titration of her metoprolol Pt's dtr at bedside and is aware. (5) HLD (hyperlipidemia): Plan: c/w home meds on dc. (6) Anxiety: Plan: c/w home meds on dc DNR/DNI On Eliquis Patient being discharged home with home health with following instruction at the point of discharge: Follow-up with your primary care physician within a week time and likely you will need labs CBC/CMP/magnesium/phosphorus. You were admitted in the hospital and treated for pneumonia and UTI, you will be discharged on antibiotic, complete the course. You will need repeat chest x-ray in 6 weeks to document resolution of left upper lobe consolidation. Start your oral antibiotic from today as prescribed. Your heart rate were elevated mostly in 100s to 110s while in hospital, your metoprolol tartrate 100 mg twice daily has been changed to metoprolol succinate 100 mg twice a day. Please take the changed form of the metoprolol. Follow-up with PCP office for dose up titration or down titration as appropriate upon clinical evaluation. Take your medications as prescribed. Please make sure that you are able to get your medications today by calling your pharmacy before you leave the hospital so that your treatment continuity is not broken. Home Health Attestation I certify that this patient is under my care and that I, or a physicians financial services assistant working with me, had a face to-face encounter that meets the home health [id number] encounter requirements with this patient. The encounter with the patient was in whole, or in part, for the following medical condition, which is the primary reason for home health care (list medical condition): PNX I certify that, based on my findings, the following services are medically necessary home health services: My clinical findings support the need for the above services because: OT Assess ADL Status and Restore Function w ADLs PT Assessment for Endurance / Balance / Strength PT Eval for Safety and Mobility PT Eval for Safety, Gait Training, Assistive Devices PT Gait and Balance Training, Strengthening and Safety Skilled Nsg Assessment Further, I certify that my clinical findings support that this patient is homebound (i.e. absences from home require considerable and taxing effort and are for medical reasons or temple services or infrequently or of short duration when for other reasons) because: Transportation Assistance/Unable to Leave Home Unassisted Certification for Home Health Services: Based on the above findings, I certify that this patient is confined to the home and needs intermittent fdc care, physical therapy and/or speech therapy or continues to need occupational therapy. The patient is under my care, and I have initiated the establishment of the plan of care. This patient will be followed by a physician who will periodically review the plan of care. Total Time Total Time Spent Total Time Spent (In Minutes): 50 Discharge Plan Discharge Items Patient Disposition: Home - Home Health Services Reason For Visit: PNEUMONIA, UTI Discharge Diagnosis: Pneumonia UTI Sepsis POA Chronic A-fib with elevated heart rate in 110s to 120s Activity: Resume your previous activity Non-emergency contact: Primary Care Provider Call non-emergency contact if: you have any medication questions, your symptoms worsen and your temperature is above 101 Follow-up/Referrals: Redd Smiley MD [Primary Care Provider] - (Date & Time 11/28/2022 11:00 AM Provider Farrah Dawson MD Department [facility] ) Diet: Heart Healthy Addtl Attending Provider Instructions: Follow-up with your primary care physician within a week time and likely you will need labs CBC/CMP/magnesium/phosphorus. You were admitted in the hospital and treated for pneumonia and UTI, you will be discharged on antibiotic, complete the course. You will need repeat chest x-ray in 6 weeks to document resolution of left upper lobe consolidation. Start your oral antibiotic from today as prescribed. Your heart rate were elevated mostly in 100s to 110s while in hospital, your metoprolol tartrate 100 mg twice daily has been changed to metoprolol succinate 100 mg twice a day. Please take the changed form of the metoprolol. Follow-up with PCP office for dose up titration or down titration as appropriate upon clinical evaluation. Take your medications as prescribed. Please make sure that you are able to get your medications today by calling your pharmacy before you leave the hospital so that your treatment continuity is not broken. Pending Studies at Discharge: Yes (Blood culture final results) Stand-Alone Forms: My [facility], Smoking Cessation Medications and DC Order Prescriptions: New levofloxacin 750 mg tablet 750 mg PO DAILY 4 Days Qty: 4 0RF Rx Instructions: 1 tab daily at around 6 PM starting 11/24/22 metoprolol succinate 100 mg tablet extended release 24 hr 100 mg PO BID Qty: 60 0RF Continued atorvastatin 10 mg tablet 10 mg PO HS fluoxetine 20 mg capsule 20 mg PO QAM acetaminophen 325 mg Tablet 650 mg PO Q6H PRN (Reason: pain) Qty: 50 0RF multivitamin Tablet 1 tab PO DAILY Eliquis 2.5 mg tablet 2.5 mg PO BID calcium carbonate-vitamin D3 [Calcium + D] 600 mg-5 mcg (200 unit) Tablet 3 tab PO DAILY Vitron-C 65 mg iron- 125 mg Tablet,Delayed Release (Dr/Ec) 1 tab PO DAILY Discontinued metoprolol tartrate 100 mg Tablet 100 mg PO BID Qty: 60 1RF Discharge Orders: Discharge Order (Routine); Ordered 11/24/22 Ordered By: Fantasma Avilez Admission Data Admit Date/Time: 11/21/22 17:34 Attending Provider: Fantasma Avilez Admit Provider: Joanne Smith Primary Care Provider: Redd Smiley Other Providers: Joanne Smith ; Sarah,Home Care
[2022-11-24] MEDS ORDERED: METOPROLOL SUCC 50MG EXT REL TAB PO SCH (21:00)
[2022-11-24] MEDS ORDERED: METOPROLOL SUCC 25MG EXT REL TAB PO SCH (21:00)
[2022-11-25] MEDS ORDERED: METOPROLOL SUCC 25MG EXT REL TAB PO SCH (09:00)
--- NOTE | 2022-11-26 13:15 | Coding Query ---
CODING QUERY To promote full compliance with coding requirements relating to patient care, provider participation is requested in all cases of medical biller/coder uncertainty. Please assist us with the question(s) below: Coding Question(s): Sepsis POA is documented in Progress Notes and on the Discharge Summary. Please specify below, in your clinical opinion, the cause(s) of Sepsis: ( ) Pneumonia ( ) UTI ( x ) Other: Please Specify likely both uti and pneumonia ( ) Unknown Physician's Response(s): Thank you Alison Her Principal Diagnosis: "that condition established after study, to be chiefly responsible for occasioning the admission of the patient to the hospital for care." Co-Existing Principal Diagnosis: "when two or more diagnoses equally meet the criteria for principal diagnosis as determined by the circumstances of admission, diagnostic work up, and/or therapy provided, and the Alphabetic Index, Tabular List, or another coding guideline does not provide sequencing direction, any one of the diagnoses may be sequenced first." "When the physician has documented what appears to be a current diagnosis in the body of the record, but has not included the diagnosis in the final diagnostic statement, the physician should be asked whether the diagnosis should be added." (Source Coding [facility] 2 QTR90. p3-4) COLBY
== END 2022-11-24 15:51 | disposition home health service (06) | DRG 871 ==
LOC: ED 14:16 → 2S 17:34 → SUATTDRO 17:34 → 2S 22:06

== ENCOUNTER 2023-11-12 17:48 | Inpatient (IN) ==
[2023-11-12 18:31] LABS: Appearance Urine Turbid (Clear); Bacteria Urine Automated 4+ (Negative); Bilirubin Urine Negative (Negative); Blood Urine 2+ (Negative); Cast Urine Automated 0 /lpf (0-5); Color Urine Orange; Epithelial Cell Urine Auto 0-5 /lpf (0-5); Glucose Urine UA Negative (Negative); Ketones Urine 1+ (Negative); Leukocyte Esterase Urine 2+ (Negative); Nitrite Urine Positive (Negative); Protein Urine 2+ (Negative); Specific Gravity Urine 1.019 (1.000-1.030); Urobilinogen Urine Negative (Negative); WBC Urine Automated >30 /hpf (0-5); pH Urine 5.5 (4.5-7.5)
[2023-11-12 18:34] LABS: Basophils # (auto) 0.04 K/uL (0.00-0.20); Basophils % (auto) 0.2 %; Hematocrit (blood only) 36.1 % (37.0-47.0); Hemoglobin 12.2 g/dl (12.0-16.0); Immature Granulocytes # (auto) 0.11 K/uL (0.01-0.20); Immature Granulocytes % (auto) 0.6 %; Lymphocytes # (auto) 0.57 K/uL (1.20-3.40); Lymphocytes % (auto) 3.3 %; Mean Corpuscular Hemoglobin 31.3 pg (25.0-34.0); Mean Corpuscular Hgb Conc 33.8 g/dL (32.0-36.0); Mean Corpuscular Volume 92.6 fL (80.0-100.0); Monocytes % (auto) 11.6 %; Neutrophils # (auto) 14.53 K/uL (1.40-6.50); Neutrophils % (auto) 84.3 %; Platelet Count 126 K/uL (130-400); RDW Coefficient of Variation 12.9 % (11.5-14.5); RDW Standard Deviation 43.6 fL (36.4-46.3); White Blood Count 17.25 K/ul (4.8-10.8)
[2023-11-12 18:38] LABS: Albumin Level 3.7 gm/dl (3.4-5.0); BUN Creatinine Ratio 19.7 (10-20); Bilirubin,Total 1.9 mg/dl (0.2-1.0); Calcium 8.8 mg/dl (8.6-10.3); Creatinine Clr Calc Pharmacy 53.4 ml/min; Est GFR (African American) 90.8 ml/min; Est GFR (Non-African American) 78.3 ml/min; Globulin 3.7 gm/dl (2.5-4.0); Magnesium 1.4 mg/dl (1.7-2.4); Potassium 3.6 mmol/L (3.5-5.1); Total Protein 7.4 gm/dl (6.0-8.3)
[2023-11-12] MEDS: METOPROLOL TARTRATE 1 MG/ML VIAL IV STA ×2 (18:41→21:12)
[2023-11-12] MEDS: SODIUM CHLORIDE 0.9% 500 ML IV SCH (18:42)
[2023-11-12 18:45] LABS: RBC Urine Automated 0-4 /hpf (0-4)
--- NOTE | 2023-11-12 18:45 | XRay Report ---
XR chest 1V portable HISTORY: 88 years-old Female weakness acute weakness COMPARISON: 11/21/2022 TECHNIQUE: AP view of the chest FINDINGS: Cardiac silhouette is enlarged. Hiatal hernia. Chronic interstitial coarsening. Patient is mildly rot ated towards the left. Mild left basilar atelectasis versus scarring. No pneumothorax, pleural effusi on or airspace consolidation. Degenerative changes of the shoulders and spine. IMPRESSION: 1. Cardiomegaly without acute process of the chest. 2. Hiatal hernia. ACT 112: Negative or not required by law. The above report was generated using voice recognition software. It may contain grammatical, syntax o r spelling errors. Electronically signed by: Jermaine Antoine M.D. 11/12/2023 6:44 PM
[2023-11-12] MEDS: MAGNESIUM SULFATE / D5W 1 GM/100 ML BAG IV SCH (18:50)
[2023-11-12] MEDS: SODIUM CHLORIDE 0.9% 500 ML IV ONE (18:50)
[2023-11-12 18:53] LABS: INR 1.2 (0.9-1.1); Prothrombin Time 12.9 Seconds (9.0-12.0)
[2023-11-12 18:54] LABS: Thyroid Stimulating Hormone 1.208 uIu/ml (0.300-4.500)
[2023-11-12 19:15] LABS: Adenovirus PCR Not Detected (NotDetected); Bordetella parapertussis PCR Not Detected (NotDetected); Bordetella pertussis PCR Not Detected (NotDetected); Chlamydia pneumoniae PCR Not Detected (NotDetected); Coronavirus 229E PCR Not Detected (NotDetected); Coronavirus CoV-2 (COVID19)PCR Not Detected (NotDetected); Coronavirus HKU1 PCR Not Detected (NotDetected); Coronavirus NL63 PCR Not Detected (NotDetected); Coronavirus OC43PCR Not Detected (NotDetected); Human Metapneumovirus PCR Not Detected (NotDetected); Influenza A PCR Not Detected (NotDetected); Influenza B PCR Not Detected (NotDetected); Mycoplasma pneumoniae PCR Not Detected (NotDetected); Parainfluenza Virus 1 PCR Not Detected (NotDetected); Parainfluenza Virus 2 PCR Not Detected (NotDetected); Parainfluenza Virus 3 PCR Not Detected (NotDetected); Parainfluenza Virus 4 PCR Not Detected (NotDetected); Respiratory Syncytial VirusPCR Not Detected (NotDetected); Rhinovirus/Enterovirus PCR Not Detected (NotDetected)
--- NOTE | 2023-11-12 19:41 | History & Physical Report ---
Date of Service November 12, 2023 Assessment & Plan (1) Acute UTI: (2) Atrial fibrillation with rapid ventricular response: (3) HTN (hypertension): (4) HLD (hyperlipidemia): (5) Anxiety: (6) GERD (gastroesophageal reflux disease): Plan This is an 88-year-old female with PMH of hypertension, chronic atrial fibrillation on Eliquis, dyslipidemia and other medical problems listed below who presents with lightheadedness and nausea and was found to have acute UTI and atrial fibrillation with RVR. Given dose of Levaquin and cefepime in the ED as well as 1 L NSS total for the UTI, 5mg IV Lopressor for A fib with RVR as well as 40meq Kcl and 2 gm magnesium. Patient seen in collaboration with Dr. Man. Please see addendum. I spent a total of 60 minutes coordinating, documenting, and providing care for this patient excluding time spent in the performance of separately billed services. History of Present Illness Chief Complaint: Nausea, lightheadedness Primary Care Provider: Redd Smiley MD This is an 88-year-old female with PMH of hypertension, chronic atrial fibrillation on Eliquis, anxiety, dyslipidemia and other medical problems listed below who presents with lightheadedness and nausea x 3 days. Patient lives independently in an apartment with family close by and daughter checks in on her every day. Ambulates with a walker at baseline and is A&O x 3. Patient notes that she was more weak on Saturday with nausea but no vomiting. No falls. Daughter has noted progressive confusion over the past few days which is very unusual for the patient. She even got dressed last evening before bed because she was confused about the time of day. Patient also endorses increased urinary frequency but no dysuria or hematuria. Has had 2 urinary tract infections before in her lifetime and they have presented similarly with confusion and weakness. Denies any fever, chills, headache, chest pain, shortness of breath, vomiting, abdominal pain, diarrhea or constipation. Has history of chronic A- fib that is asymptomatic for her. Allergies Allergy/AdvReac Type Severity Reaction Status Date / Time Penicillins Allergy Unknown UNKNOWN Verified 11/12/23 19:01 propoxyphene Allergy Unknown UNKNOWN Verified 11/12/23 19:01 quinine Allergy Unknown Unknown Verified 11/12/23 19:01 morphine AdvReac Severe extreme Verified 11/12/23 19:01 confusion Cephalosporins AdvReac Intermediate DIZZINESS Verified 11/12/23 19:01 & NAUSEA lisinopril AdvReac Intermediate COUGH Verified 11/12/23 19:01 simvastatin AdvReac Intermediate MUSCLE PAIN Verified 11/12/23 19:01 Home Medications Medication Instructions Recorded Confirmed Type atorvastatin 10 mg tablet 10 mg PO HS 04/19/20 11/12/23 History fluoxetine 20 mg capsule 20 mg PO QAM 04/19/20 11/12/23 History acetaminophen 325 mg tablet 650 mg (2 x 325 mg) PO Q6H PRN 04/22/20 11/12/23 Rx pain #50 tabs apixaban 2.5 mg tablet (Eliquis) 2.5 mg PO BID 11/21/22 11/12/23 History multivitamin 1 tab PO DAILY 11/21/22 11/12/23 History metoprolol tartrate 25 mg tablet 25 mg PO BID 11/12/23 11/12/23 History Past Med/Surg History Medical History Anxiety Chronic atrial fibrillation COVID-19 Closed fracture of right hip GERD (gastroesophageal reflux disease) HLD (hyperlipidemia) HTN (hypertension) Surgical History History of total right hip replacement Hx of appendectomy History of hip surgery Left H/O spinal fusion Family History Other Diabetes Heart disease Hypertension Social History Smoking Status: Never smoker Second Hand Exposure: No; Do You Dip or Chew Tobacco: No; Hx Alcohol Use: No Hx Substance Use: No Preferred Language: Nigerien Communication Ability: Effective Call Center Recruiter Required: No Beliefs That Will Affect Care: None marital status: / Current Living Situation: Alone Feels Safe at Home: Yes Assistive Devices: None Review of Systems Review of Systems: At least ten systems reviewed and negative except as noted in the HPI. Physical Exam Physical Exam: General Appearance: WD/WN, vitals as above, NAD, sitting up in bed, pleasant, conversing easily Head: normocephalic, atraumatic Eyes: normal inspection, PERRL, conjunctivae normal, anicteric sclerae ENT: external ear and nose normal, oropharynx normal Neck: normal visual inspection, trachea midline, no thyromegaly Respiratory: normal respiratory effort, lungs clear to auscultation, no wheeze, rales, rhonchi. No accessory muscle use Cardiovascular: irregular rate & rhythm, no murmur appreciated, normal peripheral pulses, no BLE edema. Vessels: no JVD Chest: normal inspection of chest Abdomen/GI: normal bowel sounds, soft, nontender, no hepatosplenomegaly Extremities/Musculoskeletal: no cyanosis or clubbing, extremities motor strength 5/5 Neurologic: PERRL, EOMI, accommodation nl, no face palsy, no dysarthria, CN's II-XI intact bilaterally and moves all extremities Psychiatric: A+Ox3, euthymic affect Skin: no rashes, normal color, warm/dry Results & Data Results & Data Vital Signs (Past 12 Hours) Vital Signs Temp Pulse Pulse Resp BP BP Pulse Ox 11/12/23 18:41 147 H 133/84 11/12/23 18:38 121 H 20 133/84 96 11/12/23 18:13 102 H 11/12/23 18:03 103 H 20 93 11/12/23 17:57 93 11/12/23 17:57 37.1 C 103 H 20 135/87 93 O2 Del Method 11/12/23 18:41 11/12/23 18:38 Room Air 11/12/23 18:13 11/12/23 18:03 Room Air 11/12/23 17:57 Room Air 11/12/23 17:57 Room Air Laboratory Results Short CBC 11/12/23 Range/Units 17:58 WBC 17.25 H (4.8-10.8) K/ul Hgb 12.2 (12.0-16.0) g/dl Hct 36.1 L (37.0-47.0) % Plt Count 126 L (130-400) K/uL BMP 11/12/23 17:58 Sodium 129 L Potassium 3.6 Chloride 94 L Carbon Dioxide 25 BUN 13 Creatinine 0.66 Glucose 144 H Calcium 8.8 Cardiac Enzymes 11/12/23 Range/Units 17:58 Total Creatine Kinase 123 (26-192) U/L Liver Function 11/12/23 Range/Units 17:58 Total Bilirubin 1.9 H (0.2-1.0) mg/dl AST 28 (13-39) U/L ALT 15 (7-52) U/L Alkaline Phosphatase 72 (34-104) U/L Albumin 3.7 (3.4-5.0) gm/dl Urine 11/12/23 Range/Units 18:11 Urine Color Hitchcock Urine Appearance Turbid A (Clear) Urine pH 5.5 (4.5-7.5) Ur Specific Dennard 1.019 (1.000-1.030) Urine Protein 2+ H (Negative) Urine Glucose (UA) Negative (Negative) Diagnostic Findings Chest X-Ray 11/12/23 18:02 XR chest 1V portable HISTORY: 88 years-old Female weakness acute weakness COMPARISON: 11/21/2022 TECHNIQUE: AP view of the chest FINDINGS: Cardiac silhouette is enlarged. Hiatal hernia. Chronic interstitial coarsening. Patient is mildly rotated towards the left. Mild left basilar atelectasis versus scarring. No pneumothorax, pleural effusion or airspace consolidation. Degenerative changes of the shoulders and spine. IMPRESSION: 1. Cardiomegaly without acute process of the chest. 2. Hiatal hernia. ACT 112: Negative or not required by law. The above report was generated using voice recognition software. It may contain grammatical, syntax or spelling errors. Electronically signed by: Jermaine Antoine M.D. 11/12/2023 6:44 PM ECG Additional Comments: ECG reviewed - A fib with RVR at 150 bpm Supervising Physician Co-Signing Physician Notes IM ATTENDING : Patient seen and examined. History obtained from patient, family, and records. Preceding documentation by Ms. Alyson Griffin PA-C reviewed. FINAL ASSESSMENT AND PLAN as follows : Severe sepsis SIRS plus encephalopathy secondary to complicated UTI History urge incontinence as per records Rapid A-fib secondary to above Patient on Eliquis Hypertension, slight elevated secondary illness Hyperlipidemia on statin Rx GERD stable on regimen Hyperglycemia rule out DM PCU given rapid A-fib Titrate home beta-viri CS, Cefepime Check hemoglobin A1c PT OT eval once medically stable DVT prophylaxis. Eliquis DNR as per patient's prior directives as per daughter/POA, Ms. Daphne Beltranhtel. She requests updates providers through [phone]. Text document was generated using [employer] voice recognition software. It may contain grammatical or spelling errors. Kindly contact undersigned for clarification of any documentation item in question.
--- NOTE | 2023-11-12 20:00 | Emergency Department Note ---
Impression & Plan Acute UTI, Weakness, Atrial fibrillation with rapid ventricular response ED Provider Note Provider: Santo Bernal MD DATE OF SERVICE: 11/12/2023 CHIEF COMPLAINT: Weakness, confusion HISTORY OF PRESENT ILLNESS: Patient is a 88-year-old female history of atrial fibrillation, UTIs, CKD presenting via ambulance from home. Evidently daughter found the patient more weak and evidently was a bit confused overnight. No falls reported. Patient lives in apartment by herself. Started on Saturday. Patient denies any pain. Answer simple questions. Does not report any urinary frequency or difficulty breathing. Denies chest pain or abdominal pain. Daughter later arrives and states mother is more confused than normal and weak and not eating and drinking so well. History of UTIs again reported. PAST MEDICAL HISTORY: As noted above MEDICATIONS: Home medications noted but unsure if she took them all since yesterday SOCIAL HISTORY: Lives in apartment by herself normal PHYSICAL EXAM: GENERAL: alert and oriented in no acute distress on stretcher but not the best historian to recent events Head: normocephalic and atraumatic EYES: No injection, discharge or icterus. PERRL, EOMI. NECK: Trachea midline. Supple. ENT: Mucous membranes pink and moist. LUNGS: Airway patent. No retractions. Breath sounds clear with good air entry bilaterally. HEART: Tachycardic irregular irregular rate and rhythm. No chest wall tenderness ABDOMEN: Soft and non-tender, without guarding or rebound. SKIN: Acyanotic, warm, dry, without rashes EXTREMITIES: Without swelling, tenderness or deformity NEUROLOGICAL: No focal deficits. No aphasia. No facial droop or slurred speech. EK bpm atrial fibrillation at ventricular spots. No acute ST segment elevation with some nonspecific T wave changes. QTc 505. CONTINUOUS CARDIAC MONITORING: was ordered and showed a heart rate of 90s-140s bpm in atrial fibrillation Patient's laboratory studies and imaging reviewed. Differential includes Infection, dehydration, metabolic abnormality, hypo/hyperglycemia, electrolyte disturbance, anemia, hypoxia, cardiac sources, intracerebral event, toxicologic, neurologic, as well as other pathologies. IMPRESSION/MEDICAL DECISION MAKING: Patient weak. Has a little bit of rapid A-fib. No significant fever here or hypotension. No significant falls or trauma. Nonfocal exam. Not the best historian. Additional history from daughter when she arrives in addition to EMS report. Laboratory studies show leukocytosis of 17 but no anemia. Mild hyponatremia 129 but no significant renal dysfunction. Magnesium mildly low at 1.4. Given some gentle IV fluid hydration and some IV magnesium. He was metoprolol for rate control. Troponin normal. Rapid A-fib likely from her illness and what appears to be a UTI also possible noncompliance with home medications due to her weakness. Do not believe this represents CVA or intracranial hemorrhage. Respiratory viral panel negative. Discussed with pharmacy medications. Daughter states has had significant issues with cephalosporins before. Given a dose of Levaquin here. Discussed with them who are in agreement as well as the hospitalist to stay for further care. Chest x- ray without evidence of infection/pneumonia or pulmonary edema. DIAGNOSIS: UTI, weakness, A-fib RVR DISPOSITION: Hospitalist will evaluate Patient was agreeable with this plan. Past Med/Surg History Medical History Anxiety Chronic atrial fibrillation COVID-19 Closed fracture of right hip GERD (gastroesophageal reflux disease) HLD (hyperlipidemia) HTN (hypertension) Surgical History History of total right hip replacement Hx of appendectomy History of hip surgery Left H/O spinal fusion Family History Other Diabetes Heart disease Hypertension Social History Smoking Status: Never smoker Second Hand Exposure: No; Do You Dip or Chew Tobacco: No; Hx Alcohol Use: No Hx Substance Use: No Preferred Language: Citizen Of [place] Communication Ability: Effective Tapper Balance Wheel Screw Hole Required: No Beliefs That Will Affect Care: None marital status: / Current Living Situation: Alone Feels Safe at Home: Yes Assistive Devices: None Allergies Allergies Allergy/AdvReac Type Severity Reaction Status Date / Time Penicillins Allergy Unknown UNKNOWN Verified 11/12/23 19:01 propoxyphene Allergy Unknown UNKNOWN Verified 11/12/23 19:01 quinine Allergy Unknown Unknown Verified 11/12/23 19:01 morphine AdvReac Severe extreme Verified 11/12/23 19:01 confusion Cephalosporins AdvReac Intermediate DIZZINESS Verified 11/12/23 19:01 & NAUSEA lisinopril AdvReac Intermediate COUGH Verified 11/12/23 19:01 simvastatin AdvReac Intermediate MUSCLE PAIN Verified 11/12/23 19:01 Home Meds Home Medications Medication Instructions Recorded Confirmed atorvastatin 10 mg tablet 10 mg PO HS 04/19/20 11/12/23 fluoxetine 20 mg capsule 20 mg PO QAM 04/19/20 11/12/23 apixaban 2.5 mg tablet (Eliquis) 2.5 mg PO BID 11/21/22 11/12/23 multivitamin 1 tab PO DAILY 11/21/22 11/12/23 metoprolol tartrate 25 mg tablet 25 mg PO BID 11/12/23 11/12/23 Previous Rx's Medication Instructions Recorded acetaminophen 325 mg tablet 650 mg (2 x 325 mg) PO Q6H PRN 04/22/20 pain #50 tabs Results & Data (ED) Vital Signs Vital Signs - 24 hr 11/12/23 17:57 11/12/23 17:57 11/12/23 18:03 Temperature 37.1 C Temperature Source Oral Pulse Rate 103 H 103 H Pulse Rate [Left Apical] Pulse Rhythm Regular Pulse Rhythm [Left Apical] Respiratory Rate 20 20 Respiratory Effort / Characteristics Non-Labored Spontaneous Respiratory Depth Normal Blood Pressure 135/87 Blood Pressure [Right Arm] Blood Pressure Mean 103 Blood Pressure Mean [Right Arm] Pulse Oximetry 93 93 93 Oxygen Delivery Method Room Air Room Air Room Air Sepsis Recent Fever Within 48 Hours No Sepsis New/Unexplained Change in Mental Status N/A Sepsis Action Taken by Nursing No Action Required 11/12/23 18:13 11/12/23 18:38 11/12/23 18:41 Temperature Temperature Source Pulse Rate 102 H 147 H Pulse Rate [Left Apical] 121 H Pulse Rhythm Pulse Rhythm [Left Apical] Irregular Respiratory Rate 20 Respiratory Effort / Characteristics Non-Labored Spontaneous Respiratory Depth Normal Blood Pressure 133/84 Blood Pressure [Right Arm] 133/84 Blood Pressure Mean Blood Pressure Mean [Right Arm] 100 Pulse Oximetry 96 Oxygen Delivery Method Room Air Sepsis Recent Fever Within 48 Hours Sepsis New/Unexplained Change in Mental Status Sepsis Action Taken by Nursing 11/12/23 20:00 11/12/23 20:12 Temperature Temperature Source Pulse Rate 110 H Pulse Rate [Left Apical] 112 H Pulse Rhythm Pulse Rhythm [Left Apical] Respiratory Rate 18 Respiratory Effort / Characteristics Respiratory Depth Blood Pressure 141/94 H Blood Pressure [Right Arm] 141/94 H Blood Pressure Mean Blood Pressure Mean [Right Arm] 109 Pulse Oximetry 94 Oxygen Delivery Method Sepsis Recent Fever Within 48 Hours Sepsis New/Unexplained Change in Mental Status Sepsis Action Taken by Nursing Laboratory Data 11/12/23 17:58 11/12/23 17:58 Lab Results 11/12/23 11/12/23 11/12/23 Range/Units 17:56 17:58 18:11 WBC 17.25 H (4.8-10.8) K/ul RBC 3.90 L (4.20-5.40) M/uL Hgb 12.2 (12.0-16.0) g/dl Hct 36.1 L (37.0-47.0) % MCV 92.6 (80.0-100.0) fL MCH 31.3 (25.0-34.0) pg MCHC 33.8 (32.0-36.0) g/dL RDW Std Deviation 43.6 (36.4-46.3) fL RDW Coeff of [place] 12.9 (11.5-14.5) % Plt Count 126 L (130-400) K/uL MPV 11.0 (9.4-12.4) fL Immature Gran % (Auto) 0.6 % Neut % (Auto) 84.3 % Lymph % (Auto) 3.3 % [place] % (Auto) 11.6 % Eos % (Auto) 0.0 % Baso % (Auto) 0.2 % Neut # (Auto) 14.53 H (1.40-6.50) K/uL Lymph # (Auto) 0.57 L (1.20-3.40) K/uL [place] # (Auto) 2.00 H (0.11-0.59) K/uL Eos # (Auto) 0.00 (0.00-0.50) K/uL Baso # (Auto) 0.04 (0.00-0.20) K/uL Immature Gran # (Auto) 0.11 (0.01-0.20) K/uL PT 12.9 H (9.0-12.0) Seconds INR 1.2 H (0.9-1.1) Sodium 129 L (136-145) mmol/L Potassium 3.6 (3.5-5.1) mmol/L Chloride 94 L (98-107) mmol/L Carbon Dioxide 25 (21-32) mmol/L Anion Gap 10 (3-11) BUN 13 (6-23) mg/dl Creatinine 0.66 (0.6-1.2) mg/dl Est Cr Clr Drug Dosing 53.4 ml/min Est GFR ( Amer) 90.8 ml/min Est GFR (Non-Af Amer) 78.3 ml/min BUN/Creatinine Ratio 19.7 (10-20) Glucose 144 H (70-99(Fasting)) mg/dl Estimat Average Glucose 114 mg/dl Hemoglobin A1c 5.6 (4.5-5.6) % Lactate 1.2 (0.4-2.0) mmol/L Calcium 8.8 (8.6-10.3) mg/dl Magnesium 1.4 L (1.7-2.4) mg/dl Total Bilirubin 1.9 H (0.2-1.0) mg/dl AST 28 (13-39) U/L ALT 15 (7-52) U/L Alkaline Phosphatase 72 (34-104) U/L Total Creatine Kinase 123 (26-192) U/L Troponin I High Sens 11.0 (0-14) pg/ml Total Protein 7.4 (6.0-8.3) gm/dl Albumin 3.7 (3.4-5.0) gm/dl Globulin 3.7 (2.5-4.0) gm/dl Albumin/Globulin Ratio 1.0 (0.9-2) TSH 1.208 (0.300-4.500) uIu/ml Urine Color [place] Urine Appearance Turbid A (Clear) Urine pH 5.5 (4.5-7.5) Ur Specific [place] 1.019 (1.000-1.030) Urine Protein 2+ H (Negative) Urine Glucose (UA) Negative (Negative) Urine Ketones 1+ H (Negative) Urine Blood 2+ H (Negative) Urine Nitrite Positive A (Negative) Urine Bilirubin Negative (Negative) Urine Urobilinogen Negative (Negative) Ur Leukocyte Esterase 2+ H (Negative) Urine WBC (Auto) >30 H (0-5) /hpf Urine RBC (Auto) 0-4 (0-4) /hpf U Hyaline Cast (Auto) 0 (0-5) /lpf U Epithel Cells (Auto) 0-5 (0-5) /lpf Urine Bacteria (Auto) 4+ H (Negative) Adenovirus (PCR) Not Detected (NotDetected) B. pertussis DNA (PCR) Not Detected (NotDetected) B.parapertussis DNA PCR Not Detected (NotDetected) C. pneumoniae DNA (PCR) Not Detected (NotDetected) Coronavirus OC43 (PCR) Not Detected (NotDetected) Coronavirus HKU1 (PCR) Not Detected (NotDetected) Coronavirus 229E (PCR) Not Detected (NotDetected) SARS-CoV-2 (PCR) Not Detected (NotDetected) Coronavirus NL63 (PCR) Not Detected (NotDetected) Human Metapneumovir PCR Not Detected (NotDetected) Influenza Type A (PCR) Not Detected (NotDetected) Influenza Type B (PCR) Not Detected (NotDetected) M. pneumoniae (PCR) Not Detected (NotDetected) Parainfluenza 1 (PCR) Not Detected (NotDetected) Parainfluenza 2 (PCR) Not Detected (NotDetected) Parainfluenza 3 (PCR) Not Detected (NotDetected) Parainfluenza 4 (PCR) Not Detected (NotDetected) RSV (PCR) Not Detected (NotDetected) Entero/Rhino (PCR) Not Detected (NotDetected) Administered Medications Discontinued Medications Sodium Chloride (Nss) 500 mls @ 999 mls/hr IV .Q31M [facility] Stop: 11/12/23 18:45 Last Infusion: 11/12/23 21:24 Dose: Infused Documented By: Admin: 11/12/23 18:42 Dose: 999 mls/hr Documented By: UNA Magnesium Sulfate/Dextrose (Magnesium Sulfate / D5w) 1 gm in 100 mls @ 200 mls/hr IV Q30M [facility] Stop: 11/12/23 19:44 Last Infusion: 11/12/23 21:11 Dose: Infused Documented By: Admin: 11/12/23 20:00 Dose: 200 mls/hr Documented By: Infusion: 11/12/23 19:20 Dose: Infused Documented By: Admin: 11/12/23 18:50 Dose: 200 mls/hr Documented By: UNA Sodium Chloride (Nss) 500 mls @ 999 mls/hr IV .Q31M [facility] Stop: 11/12/23 19:14 Last Infusion: 11/12/23 21:24 Dose: Infused Documented By: Admin: 11/12/23 18:50 Dose: 999 mls/hr Documented By: UNA Levofloxacin/Dextrose (Levaquin/D5w) 750 mg in 150 mls @ 100 mls/hr IV NOW STA Stop: 11/12/23 20:28 Last Admin: 11/12/23 20:52 Dose: Not Given Documented By: JASBIR Cefepime HCl (Maxipime) 2,000 mg in 20 mls @ 5 mls/min IV NOW STA; Protocol Stop: 11/12/23 19:27 Last Admin: 11/12/23 21:12 Dose: 5 mls/min Documented By: JASBIR Metoprolol Tartrate (Metoprolol Tartrate 1 Mg/Ml Vial) 5 mg IV NOW STA Stop: 11/12/23 18:03 Last Admin: 11/12/23 18:41 Dose: 5 mg Documented By: UNA Metoprolol Tartrate (Metoprolol Tartrate 1 Mg/Ml Vial) 2.5 mg IV NOW STA Stop: 11/12/23 20:30 Last Admin: 11/12/23 21:12 Dose: 2.5 mg Documented By: JASBIR Potassium Chloride (Potassium Chloride Crtab 20 Meq Tabcr) 40 meq PO NOW STA Stop: 11/12/23 19:22 Last Admin: 11/12/23 21:12 Dose: 40 meq Documented By: JASBIR Imaging Data Radiologist's Impression: Chest X-Ray 11/12/23 18:02 XR chest 1V portable HISTORY: 88 years-old Female weakness acute weakness COMPARISON: 11/21/2022 TECHNIQUE: AP view of the chest FINDINGS: Cardiac silhouette is enlarged. Hiatal hernia. Chronic interstitial coarsening. Patient is mildly rotated towards the left. Mild left basilar atelectasis versus scarring. No pneumothorax, pleural effusion or airspace consolidation. Degenerative changes of the shoulders and spine. IMPRESSION: 1. Cardiomegaly without acute process of the chest. 2. Hiatal hernia. ACT 112: Negative or not required by law. The above report was generated using voice recognition software. It may contain grammatical, syntax or spelling errors. Electronically signed by: Jermaine Antoine M.D. 11/12/2023 6:44 PM Discharge Plan Visit Data Chief Complaint: Weakness Stated Complaint: AMS, GEN. WEAKNESS, ? UTI ED Provider: Santo Bernal Discharge Problem: Acute UTI, Weakness, Atrial fibrillation with rapid ventricular response Patient Disposition: Being Evaluated by Hospitalist Discharge Instructions Interventions: ED Discharge Assessment Last Done: 11/12/23 22:42
[2023-11-12 20:24] LABS: Estimated Average Glucose 114 mg/dl; Hemoglobin A1C 5.6 % (4.5-5.6)
[2023-11-12] MEDS ORDERED: PROMETHAZINE HCL 6.25 MG in SODIUM CHLORIDE 0.9% 50 ML IV PRN (20:36)
[2023-11-12] MEDS: levoFLOXacin/D5W 750 MG/150 ML BAG IV STA (20:52)
[2023-11-12] MEDS: POTASSIUM CHLORIDE CRTAB 20 MEQ TABCR PO STA (21:12)
[2023-11-12] MEDS: CEFEPIME 2,000 MG/20 ML VIAL IV STA (21:12)
[2023-11-12] MEDS ORDERED: ACETAMINOPHEN 325 MG TAB PO PRN (22:42)
[2023-11-12] MEDS: NSS + 20MEQ KCL 20 MEQ/1,000 ML BAG IV ONE (22:54)
[2023-11-12] MEDS: METOPROLOL TARTRATE 25 MG TAB PO SCH (23:58)
[2023-11-12] MEDS: ATORVASTATIN 10 MG TAB PO SCH (23:58)
[2023-11-12] MEDS: APIXABAN 2.5 MG TAB PO SCH (23:59)
[2023-11-13] MEDS: dilTIAZem HCl 5 MG/ML 5 ML VIAL IV STA (04:52)
[2023-11-13 04:55] LABS: Basophils # (auto) 0.03 K/uL (0.00-0.20); Basophils % (auto) 0.2 %; Hematocrit (blood only) 35.3 % (37.0-47.0); Hemoglobin 12.2 g/dl (12.0-16.0); Immature Granulocytes # (auto) 0.04 K/uL (0.01-0.20); Immature Granulocytes % (auto) 0.3 %; Lymphocytes % (auto) 6.9 %; Mean Corpuscular Hemoglobin 31.9 pg (25.0-34.0); Mean Corpuscular Hgb Conc 34.6 g/dL (32.0-36.0); Mean Corpuscular Volume 92.2 fL (80.0-100.0); Mean Platelet Volume 11.1 fL (9.4-12.4); Monocytes # (auto) 1.52 K/uL (0.11-0.59); Monocytes % (auto) 10.4 %; Neutrophils # (auto) 11.96 K/uL (1.40-6.50); Neutrophils % (auto) 82.2 %; Platelet Count 129 K/uL (130-400); RDW Coefficient of Variation 12.8 % (11.5-14.5); RDW Standard Deviation 42.7 fL (36.4-46.3); Red Blood Count 3.83 M/uL (4.20-5.40); White Blood Count 14.55 K/ul (4.8-10.8)
[2023-11-13 05:04] LABS: Calcium 8.8 mg/dl (8.6-10.3); Est GFR (African American) 92.2 ml/min; Est GFR (Non-African American) 79.5 ml/min; Potassium 4.1 mmol/L (3.5-5.1)
--- OUTSIDE RECORDS SUMMARY | 2023-11-13 06:19 | External Medical Summary | Summary of Care ---
Author Name Unknown Organization [facility] Address [address] [place] [address] Phone [phone] Care Team Providers Care Winderman Name Role Phone MiladRedd sahu Primary Care Provid er Reason for Visit * Reason Comments Routine Exam RFC Encounter Details Date Type Department Care Team ([facility] Contact Info) Description 10/15/2023 10:45 AM EST Office Visit Podiatry [address] [place] [address] Ruben Diallo, LITA [address] [place] [address] PVD (peripheral vascular disease) ([facility])*; Onychomycosis; Foot callus Allergies Active Allergy Reactions Criticality Noted Date Comments Cephalosporins 12/05/2007 Dizziness and nausea Hydrochlorothiazide Abdominal pain 07/16/2018 Lisinopril Cough 01/30/2018 Morphine Psych complications High 05/23/2020 Penicillins 02/14/2001 Propoxyphene Napsylate 12/02/2001 Quinine Sulfate 02/16/2003 Simvastatin Muscle pain Medium 07/04/2010 documented as of this encounter (statuses as of 10/15/2023) Medications Medication Sig Dispensed Refills Start Date End Date Status Centrum Silver Adult 50+ Oral Tablet Take 1 Tablet by mouth in the morning. 100 Tab 0 07/15/2020 Active Eliquis 2.5 MG Oral Tablet (Apixaban)Indications :Paroxysmal atrial fibrillation (HCC) TAKE 1 TABLET BY MOUTH IN THE MORNING AND 1 BEFORE BEDTIME. 180 Tablet 1 05/07/2023 Active Metoprolol Tartrate 25 MG Oral Tablet (Lopressor) TAKE 1 TABLET BY MOUTH TWICE DAILY 180 Tablet 1 07/19/2023 Active FLUoxetine HCl 20 MG Oral Capsule (PROzac)Indications:D epression with anxiety TAKE 1 CAPSULE BY MOUTH IN THE MORNING 90 Capsule 1 07/19/2023 Active Atorvastatin Calcium 10 MG Oral Tablet (Lipitor)Indications: Dyslipidemia, goal to be determined TAKE 1 TABLET BY MOUTH DAILY 90 Tablet 3 09/21/2023 Active documented as of this encounter (statuses as of 10/15/2023) Active Problems Problem Noted Date Diagnosed Date Chronic atrial fibrillation 11/28/2022 Dyslipidemia, goal LDL below 130 01/08/2018 HTN, GOAL BELOW 140/90 08/31/2009 Overview: Modified per HTN protocol #16. 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 Vertebral fracture, osteoporotic 09/20/2008 05/20/2017 Overview: Per Osteoporotic Vertebral Fracture Protocol # 9 Mixed dyslipidemia 05/23/2004 9 Overview: Per Lipid Taxonomy. Mixed dyslipidemia 08/11/2002 5 HYPERTENSION NOS 06/11/2001 09/01/2009 Overview: Modified per HTN protocol #16. Menopause 06/11/2001 01/08/2018 Overview: age 39 documented as of this encounter (statuses as of 10/15/2023) Immunizations Name Administration Dates Next Due Pneumococcal Conjugate Vacc, 13 Valent (Prevnar) 05/24/2016 Pneumococcal Polysaccharide PPV23 (Pneumovax) 11/12/2011,07/04/2010(Deferred: Patient Refused - insurance doesn't cover it) Seasonal Influenza, PF, 6 M & above, IM , (FluLaval or Fluzone) 07/11/2022,08/21/2021,07/15/2020,07/23,07/16/2018,08/27/2016,11/13/2012 ,11/12/2011,08/30/2010,07/19/2009,05/2008,07/14/2007,07/15/2006, 5,08/09/2003,08/11/2002,09/12/2001, Seasonal Influenza, Quadriva lent Hd (Fluzone Hd) 07/10/2023,07/11/2022,08/21/2021 Seasonal Influenza, Quadriva lent, No Preserve, IM 08/27/2016,08/12/2015 Seasonal Influenza, Split, I IV3, With Preserve, Inj 11/13/2012,11/12/2011,08/30/2010,07/04(Deferred: Patient Refused - pt ill),07/19/2009,07/21/2008,07/14/2007, 07/15/2006 Seasonal Influenza, Trivalen t, Adjuvanted, 65+ yrs 07/23/2019 TD, Preservative Free 06/11/2008 documented as of this encounter Social History Tobacco Use Types Packs/Day Years Used Date Smoking Tobacco: Never Smokeless Tobacco: Never Alcohol Use Standard Drinks/Week Comments No 0 (1 standard drink = 0.6 oz pur e alcohol) PHQ-2 Answer Date Recorded PHQ Adult Total Score 0 01/15/2023 Hunger Vital Sign Answer Date Recorded Within the past 12 months, y ou worried that your food would run out before you got the money to buy more. Never true 11/26/19 23 Within the past 12 months, t he food you bought just didn't last and you didn't have money to get more. Never true 11/26/2022 Sex and Gender Information Value Date Recorded Sex Assigned at Female 01/21/2019 9:59 AM EDT Gender Identity Female 01/21/2019 9:59 AM EDT Sexual Orientation Straight 01/21/2019 9 :59 AM EDT Job Start Date Occupation Industry Not on file Not on file Not on file documented as of this encounter Progress Notes * Ruben Diallo, LITA - 10/15/2023 10:43 AM EST Patient presents with painful thickened fungal nails causing pain when wearing shoes and walking. Patient relates that nails have been this way for years but are getting progressively worse. Patient presents for evaluation and treatment. 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 age 39 Past Surgical History: Procedure Laterality Date LUMBAR SPINE FUSION W/BONE GRAFT 1988 PELVIS/HIP JOINT SURGERY NEC Left REMOVAL OF APPENDIX 1957 TOTAL HIP REPLACEMENT & PROSTHESIS Right Family History Problem Relation Age of Onset Diabetes Mother Heart Disorder Mother Diabetes Brother Hypertension Brother Social History Socioeconomic History Marital status: Spouse name: Antonio Lea Number of children: 2 Years of education: 12 Highest education level: Not on file Occupational History Not on file Social Needs Financial resource strain: Not on file Food insecurity Worry: Not on file Inability: Not on file Transportation needs Medical: Not on file Non-medical: Not on file Tobacco Use Smoking status: Never Smoker Smokeless tobacco: Never Used Substance and Sexual Activity Alcohol use: No Drug use: No Sexual activity: Yes Partners: Male Comment: occ, M x yrs Lifestyle Physical activity Days per week: Not on file Minutes per session: Not on file Stress: Not on file Relationships Social connections Talks on phone: Not on file Gets together: Not on file Attends bahai service: Not on file Active member of club or organization: Not on file Attends meetings of clubs or organizations: Not on file Relationship status: Not on file Intimate partner violence Fear of current or ex partner: Not on file Emotionally abused: Not on file Physically abused: Not on file Forced sexual activity: Not on file Other Topics Concern Service Not Asked Blood Transfusions No Comment: 1989, diskectomy, own blood Caffeine Concern No Occupational Exposure Not Asked Hobby Hazards Not Asked Sleep Concern No Stress Concern No Weight Concern No Special Diet Not Asked Back Care Yes Exercise Yes Bike Helmet Not Asked Seat Belt Yes Self-Exams Yes Social History Narrative Not on file Vaping/E-Cigarette Use Vaping/E-Cigarette Use Never User Vaping/E-Cigarette Substances Vaping/E-Cigarette Devices Current Outpatient Medications Medication Sig Dispense Refill Centrum Silver Adult 50+ Oral Tablet Take 1 Tablet by mouth in the morning. 100 Tab 0 Eliquis 2.5 MG Oral Tablet (Apixaban) TAKE 1 TABLET BY MOUTH IN THE MORNING AND 1 BEFORE BEDTIME. 180 Tablet 1 Metoprolol Tartrate 25 MG Oral Tablet (Lopressor) TAKE 1 TABLET BY MOUTH TWICE DAILY 180 Tablet 1 FLUoxetine HCl 20 MG Oral Capsule (PROzac) TAKE 1 CAPSULE BY MOUTH IN THE MORNING 90 Capsule 1 Atorvastatin Calcium 10 MG Oral Tablet (Lipitor) TAKE 1 TABLET BY MOUTH DAILY 90 Tablet 3 No current facility-administered medications for this visit. ROS EXAM: CONSTITUTIONAL: No change in weight, No weakness, No fatigue and No fevers, sweats, or chills EXTREMITIES: No pain, redness or swelling on the joints SKIN/INTEGUMENTARY: No edema, No rash and No itching NEUROLOGIC: Normal balance, No headaches, No seizures and No weakness Objective: Vascular examination: DP 2/4 bilateral PT 0/4 right 1/4 left SPVFT 3sec, decreased digital hair, thin atrophic skin Dermatological examination: nails 1-5 right and nails 1-5 left appear thickened mycotic and painfulHD distal 3rd toe left Thick callus distal right great toe Orthopedic examination: unremarkable Neurological examination: Epicritic sensation intact Assessment: The primary encounter diagnosis was PVD (peripheral vascular disease) ([facility]). Diagnoses of Onychomycosis and Foot callus were also pertinent to this visit. Plan: Discussed etiology and treatment options with the patient. Discussed debridement and topical treatment vs oral antifungal treatment Debridement of multiple mycotic nails 1-5 bilateral was performed to reduce both length and bulk ofnails Debridement of callus distal right great toe and HD distal 3rd toe left documented in this encounter Nursing Notes * Yamel Clark MED ASSIST - 10/15/2023 10:39 AM EST RFC documented in this encounter Plan of Treatment Upcoming Encounters Date Type Department Care Team ([facility] st Contact Info) Description 01/14/2024 10:20 AM EDT Office Visit [address] [phone] Redd Smiley DO [address] [place] [id number] 01/14/2024 1:00 PM EDT Office Visit Podiatry [address] [place] [phone] Ruben Diallo DPM [facility] [place] [address] Scheduled Orders Name Type Priority Associated Diagnoses Orde r Schedule DEBRIDEMENT OF NAILS 6 OR MORE Procedures Routine PVD (peripheral vascular disease) ([facility]) Onychomycosis Ordered: 10/15/2023 PARING/CUT BENIGN HYPERKERATOTIC LESION, 2-4 Procedures Routine PVD (peripheral vascular disease) ([facility]) Foot callus Ordered: 10/15/2023 Health Maintenance Due Date Last Done Comments COVID-19 Vaccine (#1) 03/05/1936 Zoster Vaccines (1 of 2) 1984 DXA Scan 06/15/2019 06/15/2016, 08/0 12/2009, 08/30/2007, Additional history exists Albumin/Creatinine Ratio 07/09/2021 07/09/2018, 05/2 06/2018 Depression Screening 01/16/2024 01/15/2023, 11/22/2014 (Declined) DTaP,Tdap,and Td Vaccines (2 - Td or Tdap) 07/16/2028 07/16/2018 (Refused), 06/11/2008 Pneumococcal Vaccine: 65+ Years Completed 05/24/2016, 11/12/2011 Influenza Vaccine (FLU shot) Completed , 07/11/2022, 07/11/2022, Additional history exists GARDASIL-HPV IMMUNIZATION SERIES Aged Out No longer eligible based on patient's age to complete this topic Hepatitis B Aged Out No longer eligi ble based on patient's age to complete this topic MENINGOCOCCAL (MENACTRA/MENVEO) Aged Out No longer eligible based on patient's age to complete this topic documented as of this encounter Medical Devices Not on filedocumented as of this encounter Visit Diagnoses Diagnosis PVD (peripheral vascular disease) (HCC)- Primary Peripheral vascular disease, unspecified Onychomycosis Dermatophytosis of nail Foot callus Corns and callosities documented in this encounter Advance Directives Latest Code Status on File Code Status Date Activated Date Inactivated Comments None 05/23/2004 4:01 PM 05/23/2004 4:01 PM Care Teams Winderman Relationship Specialty Start Date End Date Redd Smiley DO [address] [place] [id number] PCP - General Internal Medicine 08/15/21 documented as of this encounter
--- OUTSIDE RECORDS SUMMARY | 2023-11-13 06:19 | External Medical Summary | Summary of Care ---
Author Name Unknown Organization [facility] Address [address] [facility] [facility] [address] Phone [phone] Care Team Providers Care Refrigeration Unit Repairer Name Role Phone MiladRedd sahu Primary Care Provid er Reason for Visit * Reason Comments Generalized Body Aches Other General weakness Earache Bilateral ear pain Headache Encounter Details Date Type Department Care Team ([facility] st Contact Info) Description 09/16/2023 9:45 AM EST Convenient Care Visit [facility] [place] [address] [place] [address] Jostin Morejon PA-C [address] [place], [place] [id number] Viral URI* Allergies Active Allergy Reactions Criticality Noted Date Comments Cephalosporins 12/05/2007 Dizziness and nausea Hydrochlorothiazide Abdominal pain 07/16/2018 Lisinopril Cough 01/30/2018 Morphine Psych complications High 05/23/2020 Penicillins 02/14/2001 Propoxyphene Napsylate 12/02/2001 Quinine Sulfate 02/16/2003 Simvastatin Muscle pain Medium 07/04/2010 documented as of this encounter (statuses as of 09/16/2023) Medications Medication Sig Dispensed Refills Start Date End Date Status Centrum Silver Adult 50+ Oral Tablet Take 1 Tablet by mouth in the morning. 100 Tab 0 07/15/2020 Active Eliquis 2.5 MG Oral Tablet (Apixaban)Indications :Paroxysmal atrial fibrillation (HCC) TAKE 1 TABLET BY MOUTH IN THE MORNING AND 1 BEFORE BEDTIME. 180 Tablet 1 05/07/2023 Active Atorvastatin Calcium 10 MG Oral Tablet (Lipitor)Indications: Dyslipidemia, goal to be determined TAKE 1 TABLET BY MOUTH DAILY 90 Tablet 0 06/21/2023 Active Metoprolol Tartrate 25 MG Oral Tablet (Lopressor) TAKE 1 TABLET BY MOUTH TWICE DAILY 180 Tablet 1 07/19/2023 Active FLUoxetine HCl 20 MG Oral Capsule (PROzac)Indications:D epression with anxiety TAKE 1 CAPSULE BY MOUTH IN THE MORNING 90 Capsule 1 07/19/2023 Active documented as of this encounter (statuses as of 09/16/2023) Active Problems Problem Noted Date Diagnosed Date Chronic atrial fibrillation 11/28/2022 Dyslipidemia, goal LDL below 130 01/08/2018 HTN, GOAL BELOW 140/90 08/31/2009 Overview: Modified per HTN protocol #16. ADVANCE DIRECTIVE INFORMATION 08/15/2005 Overview: Yes, Patient instructed to provide copy of advance directive for provider to review and to be scanned into Electronic Medical Record documented as of this encounter (statuses as of 09/16/2023) Resolved Problems Problem Noted Date Diagnosed Date [...] as of this encounter (statuses as of 09/16/2023) Immunizations Name Administration Dates Next Due Pneumococcal Conjugate Vacc, 13 Valent (Prevnar) 05/24/2016 Pneumococcal Polysaccharide PPV23 (Pneumovax) 11/12/2011,07/04/2010(Deferred: Patient Refused - insurance doesn't cover it) SEASONAL INFLUENZA, PF, 6 M & Above, IM , (FLULAVAL or FLUZONE) 07/11/2022,08/21/2021,07/15/2020,07/23,07/16/2018,08/27/2016,11/13/2012 ,11/12/2011,08/30/2010,07/19/2009,05/2008,07/14/2007,07/15/2006, 5,08/09/2003,08/11/2002,09/12/2001, Seasonal Influenza, Quadriva lent [...] Date Smoking Tobacco: Never Smokeless Tobacco: Never Tobacco Cessation:Counseling Given: Not Answered Alcohol Use Standard Drinks/Week Comments No 0 [...] 9:59 AM EDT Sexual Orientation Straight 01/21/2019 9: 59 AM EDT Job Start Date Occupation Industry Not on file Not on file Not on file documented as of this encounter Last Filed Vital Signs Vital Sign Reading Time Taken Comments Blood Pressure 130/78 09/16/2023 9:51 AM EST Pulse 115 09/16/2023 9:51 AM EST Temperature 36 C (96.8 F) 09/16/2023 9:51 AM EST Respiratory Rate 16 09/16/2023 9:51 AM EST Oxygen Saturation 99% 09/16/2023 9:51 AM EST Inhaled Oxygen Concentration - - Weight 65.8 kg (145 lb) 09/16/2023 9:51 AM EST Height 177.8 cm (5' 10") 09/16/2023 9:51 AM EST Body Mass Index 20.81 09/16/2023 9:51 AM EST documented in this encounter Progress Notes * Jostin Morejon PA-C - 09/16/2023 9:56 AM EST Convenient Care Basic Exam Ying Rogers is a 88 year old year old female who presents for evaluation of Myalgia, General Weakness, Earache Bilat ear pain, H/A. On tylenol Per daughter patient looks better today then yesterday Denies Cough, N/V/D, dizziness Review of Systems Constitutional: Negative. HENT: Positive for ear pain. Eyes: Negative. Respiratory: Negative. Cardiovascular: Negative. Gastrointestinal: Negative. Endocrine: Negative. Genitourinary: Negative. Musculoskeletal: Positive for myalgias. Skin: Negative. Allergic/Immunologic: Negative. Neurological: Positive for headaches. Hematological: Negative. Psychiatric/Behavioral: Negative. 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 age 39 Past Surgical History: Procedure Laterality Date LUMBAR SPINE FUSION W/BONE GRAFT 1988 PELVIS/HIP JOINT SURGERY NEC Left REMOVAL OF APPENDIX 1957 TOTAL HIP REPLACEMENT & PROSTHESIS Right Social History Tobacco Use Smoking status: Never Smokeless tobacco: Never Substance Use Topics Alcohol use: No Vaping/E-Cigarette Use Vaping/E-Cigarette Use Never User Vaping/E-Cigarette Substances Vaping/E-Cigarette Devices Patient Active Problem List Diagnosis Code ADVANCE DIRECTIVE INFORMATION HTN, GOAL BELOW 140/90 I10 Dyslipidemia, goal LDL below 130 E78.5 Chronic atrial fibrillation (HCC) I48.20 Review of patient's allergies indicates: Allergen Reactions Morphine Psych complications Zocor [Simvastatin] Muscle pain Cephalexin [Cephalosporins] Dizziness and nausea Hctz [Hydrochlorothiazide] Abdominal pain Lisinopril Cough Penicillins Propoxyphene Napsylate Quinine Sulfate Current Outpatient Medications Medication Sig Dispense Refill Centrum Silver Adult 50+ Oral Tablet Take 1 Tablet by mouth in the morning. 100 Tab 0 Eliquis 2.5 MG Oral Tablet (Apixaban) TAKE 1 TABLET BY MOUTH IN THE MORNING AND 1 BEFORE BEDTIME. 180 Tablet 1 Atorvastatin Calcium 10 MG Oral Tablet (Lipitor) TAKE 1 TABLET BY MOUTH DAILY 90 Tablet 0 Metoprolol Tartrate 25 MG Oral Tablet (Lopressor) TAKE 1 TABLET BY MOUTH TWICE DAILY 180 Tablet 1 FLUoxetine HCl 20 MG Oral Capsule (PROzac) TAKE 1 CAPSULE BY MOUTH IN THE MORNING 90 Capsule 1 No current facility-administered medications for this visit. Nursing Notes and Vital Signs reviewed. BP 130/78 | Pulse 115 | Temp 36 C (96.8 F) (Tympanic) | Resp 16 | Ht 1.778 m (5' 10") | Wt 65.8 kg (145 lb) | SpO2 99% | BMI 20.81 kg/m | BSA 1.8 m Physical Exam Constitutional: Appearance: Normal appearance. She is normal weight. Comments: W/C Bound HENT: Head: Normocephalic and atraumatic. Right Ear: Tympanic membrane, ear canal and external ear normal. Left Ear: Tympanic membrane, ear canal and external ear normal. Nose: Congestion present. Mouth/Throat: Pharynx: Oropharynx is clear. Eyes: Extraocular Movements: Extraocular movements intact. Cardiovascular: Rate and Rhythm: Normal rate and regular rhythm. Pulses: Normal pulses. Heart sounds: Normal heart sounds. Pulmonary: Effort: Pulmonary effort is normal. Breath sounds: Normal breath sounds. Abdominal: General: Abdomen is flat. Bowel sounds are normal. Palpations: Abdomen is soft. Musculoskeletal: General: Normal range of motion. Cervical back: Normal range of motion and neck supple. Skin: General: Skin is warm. Neurological: General: No focal deficit present. Mental Status: She is alert and oriented to person, place, and time. Mental status is at baseline. Psychiatric: Mood and Affect: Mood normal. Behavior: Behavior normal. Thought Content: Thought content normal. Judgment: Judgment normal. ASSESSMENT: Viral URI (Primary) - INFLUENZA A/B RSV SARS-COV2,PCR - Claritin - Flonase - 325mg Tylenol PRN - Hydration / rest Follow Up: Return if symptoms worsen or fail to improve, for Clinic Visit. | For: Clinic Visit Jostin Morejon PA-C [address] [phone] documented in this encounter Nursing Notes * Sole Flores LPN - 09/16/2023 9:55 AM EST Ying Rogers is a 88 year old female who presents to walk-in clinic today complaining of Chief Complaint Patient presents with Generalized Body Aches Other General weakness Earache Bilateral ear pain Headache Tried: tylenol Pt accompanied by: daughter documented in this encounter Plan of Treatment Upcoming Encounters Date Type Department Care Team ([facility] Contact Info) Description 10/15/2023 10:45 AM EST Office Visit Podiatry [address] [place], [place] [address] [phone] Ruben Diallo, DPM [address] [place], [place] [phone] 01/14/2024 10:20 AM EDT Office Visit [facility] [address] [place] [address] Redd Smiley Michael, DO [address] [place] [phone] Pending Results Name Type Priority Associated Diagnoses Date /Time INFLUENZA A/B RSV SARS-COV2,PCR Lab Routine Viral URI 09/16/2023 10:10 AM EST Health Maintenance Due Date Last Done Comments COVID-19 Vaccine (#1) 03/05/1936 Zoster Vaccines (1 of 2) 1984 DXA Scan 06/15/2019 06/15/2016, 0812/2009, 08/30/2007, Additional history exists Albumin/Creatinine Ratio 07/09/2021 07/09/2018, 02/12 Depression Screening 01/16/2024 01/15/2023, 11/22/2014 (Declined) DTaP,Tdap,and [...] as of this encounter Visit Diagnoses Diagnosis Viral URI- Primary Acute upper respiratory infections of unspecified site documented in this encounter Advance Directives Latest Code Status on File Code Status Date Activated Date Inactivated Comments None 05/23/2004 4:01 PM 05/23/2004 4:01 PM Care Teams Refrigeration Unit Repairer Relationship Specialty Start Date End Date Redd Smiley DO [address] [place] [id number] PCP - General Internal Medicine 08/15/21 documented as of this encounter
--- OUTSIDE RECORDS SUMMARY | 2023-11-13 06:19 | External Medical Summary | Summary of Care ---
Author Name Unknown Organization [facility] Address [address] [place] [address] Phone [phone] Care Team Providers Care Literacy Coordinator Name Role Phone Redd Smiley DO Primary Care Provid er Reason for Visit * Reason Onset Date Comments Health Maintenance 10/30/2023 Encounter Details Date Type Department Care Team ([facility] Contact Info) Description 10/30/[address] [phone] Redd Smiley DO [address] [place] [phone] Health Maintenance Allergies Active Allergy Reactions Criticality Noted Date Comments Cephalosporins 12/05/2007 Dizziness and nausea Hydrochlorothiazide Abdominal pain 07/16/2018 Lisinopril Cough 01/30/2018 Morphine Psych complications High 05/23/2020 Penicillins 02/14/2001 Propoxyphene Napsylate 12/02/2001 Quinine Sulfate 02/16/2003 Simvastatin Muscle pain Medium 07/04/2010 documented as of this encounter (statuses as of 10/30/2023) Medications Medication Sig Dispensed Refills Start Date End Date Status Centrum Silver Adult 50+ Oral Tablet Take 1 Tablet by mouth in the morning. 100 Tab 0 07/15/2020 Active Metoprolol Tartrate 25 MG Oral Tablet [...] MOUTH DAILY 90 Tablet 3 09/21/2023 Active Eliquis 2.5 MG Oral Tablet (Apixaban)Indications :Paroxysmal atrial fibrillation (HCC) TAKE 1 TABLET BY MOUTH IN THE MORNING AND 1 BEFORE BEDTIME. 180 Tablet 2 10/26/2023 Active documented as of this encounter (statuses as of 10/30/2023) Active Problems Problem Noted Date Diagnosed Date Chronic atrial fibrillation 11/28/2022 Dyslipidemia, goal LDL below 130 01/08/2018 HTN, GOAL BELOW 140/90 08/31/2009 Overview: Modified per HTN protocol #16. ADVANCE DIRECTIVE INFORMATION 08/15/2005 Overview: Yes, Patient instructed to provide copy of advance directive for provider to review and to be scanned into Electronic Medical Record documented as of this encounter (statuses as of 10/30/2023) Resolved Problems Problem Noted Date Diagnosed Date [...] as of this encounter (statuses as of 10/30/2023) Immunizations Name Administration Dates Next Due Pneumococcal [...] on file documented as of this encounter Miscellaneous Notes * Telephone Encounter - Damaris Kraus LPN - 10/30/2023 10:37 AM EST Care Gaps Comprehensive Care Outreach Last Office/Telemedicine Visit: 07/10/2023 (in office), Visit date not found (telemedicine) Next Office Visit: 01/14/2024 Hemoglobin AIC Results: No results found for: "HEMOGLOBIN A1C" Reviewed Health Maintenance below: Health Maintenance Topic Date Due COVID-19 Vaccine (1) Never done Zoster Vaccines (1 of 2) Never done DXA Scan 06/15/2019 Albumin/Creatinine Ratio 07/09/2021 Care Gap Outreach Action Taken: Outreach not indicated documented in this encounter Plan of Treatment Upcoming Encounters Date Type Department Care Team ([facility] Contact Info) Description 01/14/2024 10:20 AM EDT Office Visit Family Practice [address] [place] [phone] Redd Smiley, [address] [place] [address] [place] [address] 01/14/2024 1:00 PM EDT Office Visit Podiatry [address] [place] [phone] Ruben Diallo, DPM [address] [place] [address] Health Maintenance Due Date Last Done Comments COVID-19 Vaccine (#1) 03/05/1936 Zoster Vaccines (1 of 2) 1984 DXA Scan 06/15/2019 06/15/2016, 08/12/2009, 08/30/2007, Additional history exists Albumin/Creatinine Ratio 07/09/2021 [...] Not on filedocumented as of this encounter Advance Directives Latest Code Status on File Code Status Date Activated Date Inactivated Comments None 05/23/2004 4:01 PM 05/23/2004 4:01 PM Care Teams Literacy Coordinator Relationship Specialty Start Date End Date Redd Smiley DO [address] [place] [address] [phone] PCP - General Internal Medicine 08/15/21 documented as of this encounter
--- OUTSIDE RECORDS SUMMARY | 2023-11-13 06:19 | External Medical Summary ---
Author Name Unknown Address Unknown Organization K01:[facility] [place] - [address] [facility] [address] Laboratory Report Ordering Provider Test Date Status TIFFANIE BOYLE 09/16/2023 10:10:42 Final Observation Date Value Abnormality Reference (Units ) Status SARS Coronavirus 2 09/16/2023 10:10:42 Negative N egative Final No SARS-CoV2 Coronavirus RNA detected by PCR (amplified probe).
This automated test was developed and its performance characteristics determined by [facility]. It has not been cleared or approved by the U.S. Food and Drug Administration (FDA). FDA does not require this test to go thru premarket FDA review. This test is used for clinical purposes. It should not be regarded as investigational or for research. This laboratory is certified under the Clinical Laboratory Improvement Amendments (CLIA) as qualified to perform high complexity clinical laboratory testing.

This test is a nucleic acid amplification test (NAAT), a reverse transcriptase polymerase chain reaction (RT-PCR) test, or a Centers for Disease Control-acceptable equivalent. The test is performed in a high complexity Clinical Laboratory Improvement Amendments-(CLIA) certified laboratory. The test is acceptable for SARS-CoV-2 diagnosis, surveillance, and travel within the [place] and to most countries. Please check with local testing authorities about requirements before travel.

The validation of bronchial specimens, tracheal aspirates, and sputum for this assay was developed and performance characteristics determined by [facility]. The validation of alternate specimen types has not been cleared or approved by the U.S. Food and Drug Administration (FDA). It has been determined that such clearance or approval is not necessary. Influenza virus A RNA [Prese nce] in Specimen by [facility] with probe detection 09/16/2023 10:10:42 Negative Negative Final No Influenza A RNA detected by PCR (amplified probe) Influenza virus B RNA [Prese nce] in Specimen by [facility] with probe detection 09/16/2023 10:10:42 Negative Negative Final No Influenza B RNA detected by PCR (amplified probe) Respiratory syncytial virus RNA [Identifier] in Specimen by [facility] with probe detection 09/16/2023 10:10:42 Negative Negative Final No Respiratory Syncytial Vir us RNA detected by PCR (amplified probe) Performing Location [facility] [place] [address] [place] [facility] [place], [place] [address]
--- OUTSIDE RECORDS SUMMARY | 2023-11-13 06:19 | External Medical Summary | Summary of Care ---
Author Name Unknown Organization [facility] Address [address] [place] [address] Phone [phone] Care Team Providers Care Cash Applications Associate Name Role Phone Redd Guerra DO Primary Care Provid er Reason for Visit * Reason Comments eRx-Medication Refill Encounter Details Date Type Department Care Team ([facility] Contact Info) Description 09/21/2023 Refill Family [address] [phone] Redd Guerra DO [address] [place] [address] Dyslipidemia, goal to be determined Allergies Active Allergy Reactions Criticality Noted Date Comments Cephalosporins 12/05/2007 Dizziness and nausea Hydrochlorothiazide Abdominal pain 07/16/2018 Lisinopril Cough 01/30/2018 Morphine Psych complications High 05/23/2020 Penicillins 02/14/2001 Propoxyphene Napsylate 12/02/2001 Quinine Sulfate 02/16/2003 Simvastatin Muscle pain Medium 07/04/2010 documented as of this encounter (statuses as of 09/21/2023) Medications Medication Sig Dispensed Refills Start Date End Date Status Centrum Silver Adult 50+ Oral Tablet Take 1 Tablet by mouth in the morning. 100 Tab 0 07/15/2020 Active Eliquis 2.5 MG Oral Tablet (Apixaban)Indicati ons:Paroxysmal atrial fibrillation (HCC) TAKE 1 TABLET BY MOUTH IN THE MORNING AND 1 BEFORE BEDTIME. 180 Tablet 1 05/07/2023 Active Metoprolol Tartrate 25 MG Oral Tablet (Lopressor) TAKE 1 TABLET BY MOUTH TWICE DAILY 180 Tablet 1 07/19/2023 Active FLUoxetine HCl 20 MG Oral Capsule (PROzac)Indication s:Depression with anxiety TAKE 1 CAPSULE BY MOUTH IN THE MORNING 90 Capsule 1 07/19/2023 Active Atorvastatin Calcium 10 MG Oral Tablet (Lipitor)Indicatio ns:Dyslipidemia, goal to be determined TAKE 1 TABLET BY MOUTH DAILY 90 Tablet 3 09/21/2023 Active Atorvastatin Calcium 10 MG Oral Tablet (Lipitor)Indicatio ns:Dyslipidemia, goal to be determined TAKE 1 TABLET BY MOUTH DAILY 90 Tablet 0 06/21/2023 3 Discontinued documented as of this encounter (statuses as of 09/21/2023) Active Problems Problem Noted Date Diagnosed Date Chronic atrial fibrillation 11/28/2022 Dyslipidemia, goal LDL below 130 01/08/2018 HTN, GOAL BELOW 140/90 08/31/2009 Overview: Modified per HTN protocol #16. ADVANCE DIRECTIVE INFORMATION 08/15/2005 Overview: Yes, Patient instructed to provide copy of advance directive for provider to review and to be scanned into Electronic Medical Record documented as of this encounter (statuses as of 09/21/2023) Resolved Problems Problem Noted Date Diagnosed Date [...] as of this encounter (statuses as of 09/21/2023) Immunizations Name Administration Dates Next Due Pneumococcal Conjugate Vacc, 13 Valent (Prevnar) 05/24/2016 Pneumococcal Polysaccharide PPV23 (Pneumovax) 11/12/2011,07/04/2010(Deferred: Patient Refused - insurance doesn't cover it) SEASONAL INFLUENZA, PF, 6 M & Above, IM , (FLULAVAL or FLUZONE) 07/11/2022,08/21/2021,07/15/2020,07/23,07/16/2018,08/27/2016,11/13/2012 ,11/12/2011,08/30/2010,07/19/2009,1005/2008,07/14/2007,07/15/2006, 5,08/09/2003,08/11/2002,09/12/2001, Seasonal Influenza, Quadriva lent Hd (Fluzone [...] encounter Miscellaneous Notes * Telephone Encounter - Daryn Champion RPh - 09/21/2023 11:47 AM EST Signed Prescriptions: Disp Refills Atorvastatin Calcium 10 MG Oral Tablet (Li*90 Tab*3 Sig: TAKE 1 TABLET BY MOUTH DAILYAuthorizing Provider: REDD GUERRA User: DARYN CHAMPION documented in this encounter Plan of Treatment Upcoming Encounters Date Type Department Care Team ([facility] st Contact Info) Description 10/15/2023 10:45 AM EST Office Visit Podiatry [address] [place] [address] Ruben Diallo, LITA [address] [place] [address] 01/14/2024 10:20 AM EDT Office Visit [facility] [address] [place] [phone] Redd Guerra DO [address] [place] [address] Health Maintenance Due Date Last Done Comments COVID-19 Vaccine (#1) 03/05/1936 Zoster Vaccines (1 of 2) 1984 DXA Scan 06/15/2019 06/15/2016, 12/2009, 08/30/2007, Additional history exists Albumin/Creatinine Ratio [...] as of this encounter Visit Diagnoses Diagnosis Dyslipidemia, goal to be determined Other and unspecified hyperlipidemia documented in this encounter Advance Directives Latest Code Status on File Code Status Date Activated Date Inactivated Comments None 05/23/2004 4:01 PM 05/23/2004 4:01 PM Care Teams Cash Applications Associate Relationship Specialty Start Date End Date Redd Guerra DO [address] [place] [phone] PCP - General Internal Medicine 08/15/21 documented as of this encounter
--- OUTSIDE RECORDS SUMMARY | 2023-11-13 06:19 | External Medical Summary | Summary of Care ---
Author Name Unknown Organization [facility] Address [address] [place] [address] Phone [phone] Care Team Providers Care Control Room Helper Name Role Phone Redd Guerra DO Primary Care Provid er Reason for Visit * Reason Comments eRx-Medication Refill Encounter Details Date Type Department Care Team ([facility] Contact Info) Description 10/25/2023 Refill Family [address] [phone] Redd Guerra DO [address] [place] [address] Paroxysmal atrial fibrillation (HCC) Allergies Active Allergy Reactions Criticality Noted Date Comments Cephalosporins 12/05/2007 Dizziness and nausea Hydrochlorothiazide Abdominal pain 07/16/2018 Lisinopril Cough 01/30/2018 Morphine Psych complications High 05/23/2020 Penicillins 02/14/2001 Propoxyphene Napsylate 12/02/2001 Quinine Sulfate 02/16/2003 Simvastatin Muscle pain Medium 07/04/2010 documented as of this encounter (statuses as of 10/26/2023) Medications Medication Sig Dispensed Refills Start Date [...] 09/21/2023 Active Eliquis 2.5 MG Oral Tablet (Apixaban)Indicati ons:Paroxysmal atrial fibrillation (HCC) TAKE 1 TABLET BY MOUTH IN THE MORNING AND 1 BEFORE BEDTIME. 180 Tablet 2 10/26/2023 Active Eliquis 2.5 MG Oral Tablet (Apixaban)Indicati ons:Paroxysmal atrial fibrillation (HCC) TAKE 1 TABLET BY MOUTH IN THE MORNING AND 1 BEFORE BEDTIME. 180 Tablet 1 05/07/2023 Discontinued documented as of this encounter (statuses as of 10/26/2023) Active Problems Problem Noted Date Diagnosed Date Chronic atrial fibrillation 11/28/2022 Dyslipidemia, goal LDL below 130 01/08/2018 HTN, GOAL BELOW 140/90 08/31/2009 Overview: Modified per HTN protocol #16. ADVANCE DIRECTIVE INFORMATION 08/15/2005 Overview: Yes, Patient instructed to provide copy of advance directive for provider to review and to be scanned into Electronic Medical Record documented as of this encounter (statuses as of 10/26/2023) Resolved Problems Problem Noted Date Diagnosed Date [...] as of this encounter (statuses as of 10/26/2023) Immunizations Name Administration Dates Next Due Pneumococcal Conjugate Vacc, 13 Valent (Prevnar) 05/24/2016 Pneumococcal Polysaccharide PPV23 (Pneumovax) 11/12/2011,07/04/2010(Deferred: Patient Refused - insurance doesn't cover it) Seasonal Influenza, PF, 6 M & above, IM , (FluLaval or Fluzone) 07/11/2022,08/21/2021,07/15/2020,07/23,07/16/2018,08/27/2016,11/13/2012 ,11/12/2011,08/30/2010,07/19/2009,1005/2008,07/14/2007,07/15/2006, 5,08/09/2003,08/11/2002,09/12/2001, Seasonal Influenza, Quadriva lent [...] encounter Miscellaneous Notes * Telephone Encounter - Bere Gallegos RPh - 10/26/2023 8:26 AM ESTSigned Prescriptions: Disp Refills Eliquis 2.5 MG Oral Tablet (Apixaban) 180 Ta*2 Sig: TAKE 1 TABLET BY MOUTH IN THE MORNING AND 1 BEFORE BEDTIME.Authorizing Provider: REDD GUERRA User: BERE GALLEGOS documented in this encounter Plan of Treatment Upcoming Encounters Date Type Department Care Team ([facility] st Contact Info) Description 01/14/2024 10:20 AM EDT Office Visit [address] [phone] Redd Guerra DO [address] [place] [address] 01/14/2024 1:00 PM EDT Office Visit Podiatry [facility] [address] [facility] [address] [place] [phone] Ruben Diallo, DPM [address] [place] [address] Health Maintenance Due Date Last Done Comments [...] as of this encounter Visit Diagnoses Diagnosis Paroxysmal atrial fibrillation (HCC) Atrial fibrillation documented in this encounter Advance Directives Latest Code Status on File Code Status Date Activated Date Inactivated Comments None 05/23/2004 4:01 PM 05/23/2004 4:01 PM Care Teams Control Room Helper Relationship Specialty Start Date End Date Redd Guerra DO [address] [place] [phone] PCP - General Internal Medicine 08/15/21 documented as of this encounter
--- OUTSIDE RECORDS SUMMARY | 2023-11-13 06:20 | External Medical Summary | Summary of Care ---
Author Name Unknown Organization [facility] Address [address] [place] [address] Phone [phone] Care Team Providers Care Audio Visual Design Engineer Name Role Phone MiladRedd sahu Primary Care Provid er Reason for Visit * Reason Comments Outpatient Testing Encounter Details Date Type Department Care Team Description 07/02/2023 Laboratory [facility] [phone] [address] Dyslipidemia, goal LDL below 130; Chronic atrial fibrillation (HCC); HTN, goal below 140/90 Allergies Active Allergy Reactions Severity Noted Date Comments Cephalosporins 12/05/2007 Dizziness and nausea Hydrochlorothiazide Abdominal pain 07/16/2018 Lisinopril Cough 01/30/2018 Morphine Psych complications High 05/23/2020 Penicillins 02/14/2001 Propoxyphene Napsylate 12/02/2001 Quinine Sulfate 02/16/2003 Simvastatin Muscle pain Medium 07/04/2010 documented as of this encounter (statuses as of 07/02/2023) Medications Medication Sig Dispensed Refills Start Date End Date Status Centrum Silver Adult 50+ Oral Tablet Take 1 Tablet by mouth in the morning. 100 Tab 0 07/15/2020 Active Metoprolol Tartrate 25 MG Oral Tablet (Lopressor) 1 tablet by mouth twice daily 180 Tablet 2 11/28/2022 Active FLUoxetine HCl 20 MG Oral Capsule (PROzac)Indications:D epression with anxiety Take 1 Capsule by mouth in the morning. Every morning.. 90 Capsule 1 01/15/2023 Active Eliquis 2.5 MG Oral Tablet (Apixaban)Indications :Paroxysmal atrial fibrillation (HCC) TAKE 1 TABLET BY MOUTH IN THE MORNING AND 1 BEFORE BEDTIME. 180 Tablet 1 05/07/2023 Active Atorvastatin Calcium 10 MG Oral Tablet (Lipitor)Indications: Dyslipidemia, goal to be determined TAKE 1 TABLET BY MOUTH DAILY 90 Tablet 0 06/21/2023 Active documented as of this encounter (statuses as of 07/02/2023) Active Problems Problem Noted Date Closed fracture of hip 11/28/2022 Chronic atrial fibrillation 11/28/2022 Urge incontinence of urine 11/28/2022 Edema 01/08/2018 Dyslipidemia, goal LDL below 130 018 HTN, GOAL BELOW 140/90 08/31/2009 Overview: Modified per HTN protocol #16. ADVANCE DIRECTIVE INFORMATION 08/15/2005 Overview: Yes, Patient instructed to provide copy of advance directive for provider to review and to be scanned into Electronic Medical Record documented as of this encounter (statuses as of 07/02/2023) Resolved Problems Problem Noted Date Resolved Date Paroxysmal atrial fibrillation 11/01/2021 0 02/21/2022 Benign hypertension with chronic kidney disease, stage III 07/21/2019 01/19/2021 Abnormal kidney function study 01/30/2018 0 04/03/2018 Esophageal reflux 01/08/2018 07/15/2020 Essential hypertension with goal blood pressure less than 140/90 08/27/2016 05/20/2017 CKD (chronic kidney disease), stage III 12/07/19 14 07/29/2019 Overview: Per CKD protocol #1 Kidney disease, chronic, stage III (GFR 30-59 ml /min) 03/03/2012 11/13/2012 Overview: Per CKD protocol #1 Dyslipidemia, goal to be determined 09/22/2009 05/20/2014 Overview: Per Lipid Taxonomy. Vertebral fracture, osteoporotic 09/20/2008 05/20/2017 Overview: Per Osteoporotic Vertebral Fracture Protocol # 9 Mixed dyslipidemia 05/23/2004 09/22/2009 Overview: Per Lipid Taxonomy. Mixed dyslipidemia 08/11/2002 12/01/2004 HYPERTENSION NOS 06/11/2001 09/01/2009 Overview: Modified per HTN protocol #16. Menopause 06/11/2001 01/08/2018 Overview: age 39 documented as of this encounter (statuses as of 07/02/2023) Immunizations Name Administration Dates Next Due Pneumococcal Conjugate Vacc, 13 Valent (Prevnar) 05/24/2016 Pneumococcal Polysaccharide PPV23 (Pneumovax) 11/12/2011,07/04/2010(Deferred: Patient Refused - insurance doesn't cover it) Seasonal Influenza, PF, 6 mo ns & Above, IM , (Flulaval) 07/11/2022,08/21/2021,07/15/2020,07/23,07/16/2018,08/27/2016,11/13/2012 ,11/12/2011,08/30/2010,07/19/2009,05/2008,07/14/2007,07/15/2006, 5,08/09/2003,08/11/2002,09/12/2001, Seasonal Influenza, Quadriva lent Hd (Fluzone Hd) 07/11/2022,08/21/2021 Seasonal Influenza, Quadriva lent, No Preserve, IM [...] drink = 0.6 oz pur e alcohol) Sex Assigned at Date Recorded Female 01/21/2019 9:59 AM E DT Job Start Date Occupation Industry Not on file Not on file Not on file documented as of this encounter Plan of Treatment Upcoming Encounters Date Type Specialty Care Team Description 07/09/2023 Office Visit Podiatry Ruben Diallo, LITA [address] [place] [address] 07/10/2023 Office Visit Family Medicine Redd Smiley, DO [address] [place] [phone] Pending Results Name Type Priority Associated Diagnoses Date /Time COMPREHENSIVE METABOLIC PANEL Lab Routine Dyslipidemia, goal LDL below 130 Chronic atrial fibrillation (HCC) HTN, goal below 140/90 07/02/2023 8:37 AM EDT CBC WITH WBC DIFFERENTIAL Lab Routine Dyslipidemia, goal LDL below 130 Chronic atrial fibrillation (HCC) HTN, goal below 140/90 07/02/2023 8:37 AM EDT LIPID PANEL WITH DIRECT LDL IF TG IS HIGH Lab Routine Dyslipidemia, goal LDL below 130 Chronic atrial fibrillation (HCC) HTN, goal below 140/90 07/02/2023 8:37 AM EDT CBC Lab Routine Dyslipidemia, goal LDL below 130 Chronic atrial fibrillation (HCC) HTN, goal below 140/90 07/02/2023 8:37 AM EDT DIFFERENTIAL, AUTOMATED Lab Routine Dyslipidemia, goal LDL below 130 Chronic atrial fibrillation (HCC) HTN, goal below 140/90 07/02/2023 8:37 AM EDT Health Maintenance Due Date Last Done Comments COVID-19 Vaccine (#1) 03/05/1936 Zoster Vaccines (1 of 2) 1984 DXA Scan 06/15/2019 06/15/2016, 0812/2009, 08/30/2007, Additional history exists Albumin/Creatinine Ratio 07/09/2021 07/09/2018, 02/12 Influenza Vaccine (FLU shot) (#1) 2023 07/11/2022, 07/11/2022, 08/21/2021, Additional history exists Depression Screening 01/16/2024 01/15/2023, 11/22/2014 (Declined) DTaP,Tdap,and Td Vaccines (2 - Td or Tdap) 07/16/2028 07/16/2018 (Refused), 06/11/2008 Pneumococcal Vaccine: 65+ Years Completed 05/24/2016, 11/12/2011 GARDASIL-HPV IMMUNIZATION SERIES Aged Out No longer [...] this encounter Visit Diagnoses Diagnosis Dyslipidemia, goal LDL below 130 Other and unspecified hyperlipidemia Chronic atrial fibrillation (HCC) Atrial fibrillation HTN, goal below 140/90 Unspecified essential hypertension documented in this encounter Advance Directives Latest Code Status on File Code Status Date Activated Date Inactivated Comments None 05/23/2004 4:01 PM 05/23/2004 4:01 PM Care Teams Audio Visual Design Engineer Relationship Specialty Start Date End Date Redd Smiley DO [address] [place] [address] [phone] PCP - General Internal Medicine 08/15/21 documented as of this encounter
--- OUTSIDE RECORDS SUMMARY | 2023-11-13 06:20 | External Medical Summary | Summary of Care ---
Author Name Unknown Organization [facility] Address [address] [place] [address] Phone [phone] Care Team Providers Care Financial Investment Manager Name Role Phone Redd Guerra DO Primary Care Provid er Reason for Visit * Reason Comments eRx-Medication Refill Encounter Details Date Type Department Care Team Description 11/12/[address] [address] Redd Guerra DO [address] [place] [address] Paroxysmal atrial fibrillation (HCC) Allergies Active Allergy Reactions Severity Noted Date Comments Cephalosporins 12/05/2007 Dizziness and nausea Hydrochlorothiazide Abdominal pain 07/16/2018 Lisinopril Cough 01/30/2018 Morphine Psych complications High 05/23/2020 Penicillins 02/14/2001 Propoxyphene Napsylate 12/02/2001 Quinine Sulfate 02/16/2003 Simvastatin Muscle pain Medium 07/04/2010 documented as of this encounter (statuses as of 07/27/2023) Medications Medication Sig Dispensed Refills Start Date End Date Status Centrum Silver Adult 50+ Oral Tablet Take 1 Tablet by mouth in the morning. 100 Tab 0 07/15/2020 Active CALCIUM 500/D 500-200 MG-UNIT PO TABSIndications:i s not taking, states PCP stopped? Take by mouth. 0 04/12/2005 3 Discontinued(Med ication List Clean Up) Iron-Vitamin C 65-125 MG Tablet Take 1 Tablet by mouth in the morning. 0 12/17/2016 3 Discontinued(Med ication List Clean Up) Eliquis 2.5 MG Oral Tablet (Apixaban)Indicat ions:Paroxysmal atrial fibrillation (HCC) take 1 tablet by mouth in the morning and 1 tablet before bedtime. 180 Tablet 1 05/15/2022 3 Discontinued Atorvastatin Calcium 10 MG Oral Tablet (Lipitor)Indicati ons:Dyslipidemia, goal to be determined TAKE 1 TABLET BY MOUTH ONCE DAILY 90 Tablet 3 05/21/2022 3 Discontinued Metoprolol Tartrate 100 MG Oral Tablet (Lopressor) TAKE 1 TABLET BY MOUTH TWICE DAILY 180 Tablet 1 08/08/2022 3 Discontinued(Ext ernal Source Cancellation) FLUoxetine HCl 20 MG Oral Capsule (PROzac)Indicatio ns:Depression with anxiety TAKE 1 CAPSULE BY MOUTH EVERY MORNING 90 Capsule 1 08/08/2022 3 Discontinued(Ref ill) Eliquis 2.5 MG Oral Tablet (Apixaban)Indicat ions:Paroxysmal atrial fibrillation (HCC) TAKE 1 TABLET BY MOUTH IN THE MORNING AND BEFORE BEDTIME 180 Tablet 1 11/13/2022 3 Discontinued documented as of this encounter (statuses as of 07/27/2023) Active Problems Problem Noted Date Chronic atrial fibrillation 11/28/2022 Dyslipidemia, goal LDL below 130 018 HTN, GOAL BELOW 140/90 08/31/2009 Overview: Modified per HTN protocol #16. ADVANCE DIRECTIVE INFORMATION 08/15/2005 Overview: Yes, Patient instructed to provide copy of advance directive for provider to review and to be scanned into Electronic Medical Record documented as of this encounter (statuses as of 07/27/2023) Resolved Problems Problem Noted Date Resolved Date Closed fracture of hip 11/28/2022 3 Urge incontinence of urine 11/28/202207/03 Paroxysmal atrial fibrillation 11/01/2021 0 02/21/2022 Benign hypertension with chronic kidney disease, stage III 07/21/2019 01/19/2021 Abnormal kidney function study 01/30/2018 0 04/03/2018 Esophageal reflux 01/08/2018 07/15/2020 Edema 01/08/2018 [...] as of this encounter (statuses as of 07/27/2023) Immunizations Name Administration Dates Next Due Influenza, Whole Virus 09/30/2000 Pneumococcal Conjugate Vacc, 13 Valent (Prevnar) 05/24/2016 Pneumococcal Conjugate Vacci ne, 7 Valent 08/11/2002 Pneumococcal Polysaccharide PPV23 (Pneumovax) 11/12/2011,07/04/2010(Deferred: Patient Refused - insurance doesn't cover it) SEASONAL INFLUENZA, PF, 6 M & Above, IM , (FLULAVAL or FLUZONE) 07/11/2022,08/21/2021,07/15/2020,07/23,07/16/2018,08/27/2016,11/13/2012 ,11/12/2011,08/30/2010,07/19/2009,05/2008,07/14/2007,07/15/2006, 5,08/09/2003,08/11/2002,09/12/2001, Seasonal Influenza, Quadriva lent Hd (Fluzone Hd) 07/10/2023,07/11/2022,08/21/2021 Seasonal Influenza, Quadriva lent, No Preserve, IM 08/27/2016,08/12/2015 Seasonal Influenza, Split, I IV3, With Preserve, Inj 11/13/2012,11/12/2011,08/30/2010,07/04(Deferred: Patient Refused - pt ill),07/19/2009,07/21/2008,07/14/2007, 07/15/2006,08/15/2005,08/09/2003,08/11,09/12/2001 Seasonal Influenza, Trivalen t, Adjuvanted, 65+ yrs [...] encounter Miscellaneous Notes * Telephone Encounter - Carlie Cummins CPhT - 07/27/2023 11:29 AM EDT Received message from [facility] regarding patient needing labs. Placed call to patient to advise. Pt had ordered labs completed on 07/02/23; no follow-up is needed. Thank you, Suyapa Cummins [facility] Nurse Practitioner [facility] (Formerly Telepharm[facility]) 07/27/2023,11:29 AM * Telephone Encounter - Leodan Napoles [facility] - 11/13/2022 4:18 PM ESTSigned Prescriptions: Disp Refills Eliquis 2.5 MG Oral Tablet (Apixaban) 180 Ta*1 Sig: TAKE 1 TABLET BY MOUTH IN THE MORNING AND BEFORE BEDTIMEAuthorizing Provider: REDD GUERRA User: LEODAN SYLVESTER * Telephone Encounter - Leodan Napoles [facility] - 11/13/2022 4:17 PM EST Provided 90 days supply with 1 refill(s) until upcoming appointment. Per refill protocol patient should have CBC and CMP on file within past year. Reviewed AMP report, Care Gaps/Health Maintenance, medications list, and for any routine labs typically ordered for this patient. Lab orders placed. Please contact patient to advise of labs ordered for blood draw.. Fasting is not required. Advise to obtain labs before her scheduled office visit 01/15/2023. Thank You, Leodan Sylvester [facility] Staff Pharmacist Pharmacy Refill Call Center 11/13/2022, 4:17 PM * Telephone Encounter - Leodan Napoles [facility] - 11/13/2022 4:17 PM EST Pending Prescriptions: Disp Refills Eliquis 2.5 MG Oral Tablet (Apixaban) [Ph*180 Ta*0 Sig: TAKE 1 TABLET BY MOUTH IN THE MORNING AND BEFORE BEDTIME Last Visit: 07/11/2022 (in office), Visit date not found (telemedicine) Next Visit: 01/15/2023 If no future appointments scheduled, and last appointment is greater than a year ago, please schedule patient for a follow-up appointment Last date the medication was ordered: 05/15/22 Pharmacy: [facility] [id number] Is this request for a controlled substance? No Urine Drug Screen:No results found for this or any previous visit. Patient Phone Numbers Labs: Lab Results Component Value Date/Time CREAT 1.0 07/18/2021 09:29 AM CREAT 0.8 07/15/2020 12:49 PM POTASSIUM 4.5 07/18/2021 09:29 AM POTASSIUM 4.1 07/15/2020 12:49 PM TSH 2.36 07/09/2018 09:47 AM LDLCALC 64 07/18/2021 09:29 AM LDLCALC 77 07/16/2019 08:05 AM LDLDIRECT 57 07/15/2020 12:49 PM ALT 22 07/18/2021 09:29 AM ALT 17 07/16/2019 08:05 AM documented in this encounter Plan of Treatment Upcoming Encounters Date Type Specialty Care Team Description 10/15/2023 Office Visit Podiatry Ruben Diallo, LITA [address] [place] [address] 01/14/2024 Office Visit Family Medicine Redd Guerra, [address] [phone] Health Maintenance Due Date Last Done Comments [...] 4:01 PM 05/23/2004 4:01 PM Care Teams Financial Investment Manager Relationship Specialty Start Date End Date Redd Guerra DO [address] [place] [address] PCP - General Internal Medicine 08/15/21 documented as of this encounter
--- OUTSIDE RECORDS SUMMARY | 2023-11-13 06:20 | External Medical Summary | Summary of Care ---
Author Name Unknown Organization [facility] Address [address] [place] [address] Phone [phone] Care Team Providers Care Creative Director Name Role Phone Redd Guerra DO Primary Care Provid er Reason for Visit * Reason Comments eRx-Medication Refill Encounter Details Date Type Department Care Team Description 07/18/[address] [address] Redd Guerra DO [address] [place] [address] Depression with anxiety Allergies Active Allergy Reactions Severity Noted Date Comments Cephalosporins 12/05/2007 Dizziness and nausea Hydrochlorothiazide Abdominal pain 07/16/2018 Lisinopril Cough 01/30/2018 Morphine Psych complications High 05/23/2020 Penicillins 02/14/2001 Propoxyphene Napsylate 12/02/2001 Quinine Sulfate 02/16/2003 Simvastatin Muscle pain Medium 07/04/2010 documented as of this encounter (statuses as of 07/19/2023) Medications Medication Sig Dispensed Refills Start Date [...] THE MORNING 90 Capsule 1 07/19/2023 Active FLUoxetine HCl 20 MG Oral Capsule (PROzac)Indication s:Depression with anxiety Take 1 Capsule by mouth in the morning. Every morning.. 90 Capsule 1 01/15/2023 3 Discontinued documented as of this encounter (statuses as of 07/19/2023) Active Problems Problem Noted Date Chronic atrial fibrillation 11/28/2022 Dyslipidemia, goal LDL below 130 018 HTN, GOAL BELOW 140/90 08/31/2009 Overview: Modified per HTN protocol #16. ADVANCE DIRECTIVE INFORMATION 08/15/2005 Overview: Yes, Patient instructed to provide copy of advance directive for provider to review and to be scanned into Electronic Medical Record documented as of this encounter (statuses as of 07/19/2023) Resolved Problems Problem Noted Date Resolved Date [...] as of this encounter (statuses as of 07/19/2023) Immunizations Name Administration Dates Next Due Pneumococcal [...] at Date Recorded Female 01/21/2019 9:59 AM EDT Job Start Date Occupation Industry Not on file Not on file Not on file documented as of this encounter Miscellaneous Notes * Telephone Encounter - Devang Mejía RPh - 07/19/2023 12:29 PM EDTSigned Prescriptions: Disp Refills FLUoxetine HCl 20 MG Oral Capsule (PROzac) 90 Cap*1 Sig: TAKE 1CAPSULE BY MOUTH IN THE MORNINGAuthorizing Provider: REDD GUERRA User: DEVANG MEJÍA documented in this encounter Plan of Treatment Upcoming Encounters Date Type Specialty Care Team Description 10/15/2023 Office Visit Podiatry Ruben Diallo, LITA [address] [place] [address] 01/14/2024 Office Visit Family Medicine Redd Guerra, [address] [address] Health Maintenance Due Date Last Done Comments [...] as of this encounter Visit Diagnoses Diagnosis Depression with anxiety Dysthymic disorder documented in this encounter Advance Directives Latest Code Status on File Code Status Date Activated Date Inactivated Comments None 05/23/2004 4:01 PM 05/23/2004 4:01 PM Care Teams Creative Director Relationship Specialty Start Date End Date Redd Guerra DO [address] [place] [address] PCP - General Internal Medicine 08/15/21 documented as of this encounter
--- OUTSIDE RECORDS SUMMARY | 2023-11-13 06:20 | External Medical Summary | Summary of Care ---
Author Name Unknown Organization [facility] Address [address] [place] [address] Phone [phone] Care Team Providers Care Research Director Name Role Phone MiladRedd sahu Primary Care Provid er Reason for Visit * Reason Comments Routine Exam RFC Encounter Details Date Type Department Care Team Description 07/09/2023 Office Visit Podiatry [address] [place] [address] Ruben Diallo, LITA [address] [place] [address] PVD (peripheral vascular disease) (FORMERLY [facility]; Onychomycosis; Foot callus; Pain due to onychomycosis of toenails of both feet Allergies Active Allergy Reactions Severity Noted Date Comments Cephalosporins 12/05/2007 Dizziness and nausea Hydrochlorothiazide Abdominal pain 07/16/2018 Lisinopril Cough 01/30/2018 Morphine Psych complications High 05/23/2020 Penicillins 02/14/2001 Propoxyphene Napsylate 12/02/2001 Quinine Sulfate 02/16/2003 Simvastatin Muscle pain Medium 07/04/2010 documented as of this encounter (statuses as of 07/09/2023) Medications Medication Sig Dispensed Refills Start Date [...] as of this encounter (statuses as of 07/09/2023) Active Problems Problem Noted Date Chronic atrial fibrillation 11/28/2022 Dyslipidemia, goal LDL below 130 018 HTN, GOAL BELOW 140/90 08/31/2009 Overview: Modified per HTN protocol #16. ADVANCE DIRECTIVE INFORMATION 08/15/2005 Overview: Yes, Patient instructed to provide copy of advance directive for provider to review and to be scanned into Electronic Medical Record documented as of this encounter (statuses as of 07/09/2023) Resolved Problems Problem Noted Date Resolved Date [...] as of this encounter (statuses as of 07/09/2023) Immunizations Name Administration Dates Next Due Pneumococcal [...] this encounter Progress Notes * Ruben Diallo, DPM - 07/09/2023 10:49 AM EDT Patient presents with painful thickened fungal nails [...] file Gets together: Not on file Attends hinduism service: Not on file Active member of [...] mouth in the morning. 100 Tab 0 Metoprolol Tartrate 25 MG Oral Tablet (Lopressor) 1 tablet by mouth twice daily 180 Tablet 2 FLUoxetine HCl 20 MG Oral Capsule (PROzac) Take 1 Capsule by mouth in the morning. Every morning.. 90 Capsule 1 Eliquis 2.5 MG Oral Tablet (Apixaban) TAKE 1 TABLET BY MOUTH IN THE MORNING AND 1 BEFORE BEDTIME. 180 Tablet 1 Atorvastatin Calcium 10 MG Oral Tablet (Lipitor) TAKE 1 TABLET BY MOUTH DAILY 90 Tablet 0 No current facility-administered medications for this visit. [...] nails 1-5 left appear thickened mycotic and painful Thick callus distal right great toe Orthopedic examination: unremarkable Neurological examination: Epicritic sensation intact Assessment: The primary encounter diagnosis was PVD (peripheral vascular disease) ([facility]ERLY [facility]). Diagnoses of Onychomycosis, Foot callus, and Pain due to onychomycosis of toenails of both feet were also pertinent to this visit. Plan: Discussed etiology and treatment options with the patient. Discussed debridement and topical treatment vs oral antifungal treatment Debridement of multiple mycotic nails 1-5 bilateral was performed to reduce both length and bulk ofnails Debridement of callus distal right great toe documented in this encounter Nursing Notes * Yamel Clark MED ASSIST - 07/09/2023 10:30 AM EDT RFC documented in this encounter Plan of Treatment Upcoming Encounters Date Type Specialty Care Team Description 07/10/2023 Office Visit Family Medicine Redd Smiley, DO [address] [place] [address] 10/15/2023 Office Visit Podiatry Ruben Diallo, LITA [address] [place] [address] Scheduled Orders Name Type Priority Associated Diagnoses Orde r Schedule DEBRIDEMENT OF NAILS 6 OR MORE Procedures Routine PVD (peripheral vascular disease) (HCC) Onychomycosis Pain due to onychomycosis of toenails of both feet Ordered: 07/09/2023 PARING/CUT BENIGN HYPERKERATOTIC LESION, ONE Procedures Routine PVD (peripheral vascular disease) ([facility]) Foot callus Ordered: 07/09/2023 Health Maintenance Due Date Last Done Comments [...] of nail Foot callus Corns and callosities Pain due to onychomycosis of toenails of both feet documented in this encounter Advance Directives Latest Code Status on File Code Status Date Activated Date Inactivated Comments None 05/23/2004 4:01 PM 05/23/2004 4:01 PM Care Teams Research Director Relationship Specialty Start Date End Date Redd Smiley DO [address] [place] [address] PCP - General Internal Medicine 08/15/21 documented as of this encounter
--- OUTSIDE RECORDS SUMMARY | 2023-11-13 06:20 | External Medical Summary | Summary of Care ---
Author Name Unknown Organization [facility] Address [address] [place] [address] Phone [phone] Care Team Providers Care Computer Laboratory Technician Name Role Phone Miladadelina Redd Rodriguez Primary Care Provid er Reason for Visit * Reason Comments eRx-Medication Refill Encounter Details Date Type Department Care Team Description 07/18/[address] [address] Farrah Dawson MD [address] [place] [address] Allergies Active Allergy Reactions Severity Noted Date [...] TWICE DAILY 180 Tablet 1 07/19/2023 Active Metoprolol Tartrate 25 MG Oral Tablet (Lopressor) 1 tablet by mouth twice daily 180 Tablet 2 11/28/2022 3 Discontinued FLUoxetine HCl 20 MG Oral Capsule (PROzac)Indication [...] encounter Miscellaneous Notes * Telephone Encounter - Germán Mejía RPh - 07/19/2023 12:28 PM EDTSigned Prescriptions: Disp Refills Metoprolol Tartrate 25 MG Oral Tablet (Lop*180 Ta*1 Sig: TAKE 1 TABLET BY MOUTH TWICE DAILYAuthorizing Provider: REDD GUERRA User: GERMÁN MEJÍA documented in this encounter Plan of Treatment Upcoming Encounters Date Type Specialty Care Team Description 10/15/2023 Office Visit Podiatry Ruben Diallo, LITA [address] [place] [address] 01/14/2024 Office Visit Family Medicine Redd Guerra, [address] [address] Health Maintenance Due Date Last Done Comments [...] 4:01 PM 05/23/2004 4:01 PM Care Teams Computer Laboratory Technician Relationship Specialty Start Date End Date Redd Guerra DO [address] [place] [address] PCP - General Internal Medicine 08/15/21 documented as of this encounter
--- OUTSIDE RECORDS SUMMARY | 2023-11-13 06:20 | External Medical Summary | Summary of Care ---
Author Name Unknown Organization [facility] Address [address] [place] [address] Phone [phone] Care Team Providers Care Handbag Parts Cutter Name Role Phone Redd Smiley Primary Care Provid er Reason for Visit * Reason Onset Date Comments MyCode Nonconsent - Not interested at this time 07/10/2023 Encounter Details Date Type Department Care Team Description 07/10/2023 Orders Only Outcomes Research Department [address] [place] [address] Ursula Dietrich CHRA MyCode Nonconsent Documentation Allergies Active Allergy Reactions Severity Noted Date Comments Cephalosporins 12/05/2007 Dizziness and nausea Hydrochlorothiazide Abdominal pain 07/16/2018 Lisinopril Cough 01/30/2018 Morphine Psych complications High 05/23/2020 Penicillins 02/14/2001 Propoxyphene Napsylate 12/02/2001 Quinine Sulfate 02/16/2003 Simvastatin Muscle pain Medium 07/04/2010 documented as of this encounter (statuses as of 07/10/2023) Medications Medication Sig Dispensed Refills Start Date [...] as of this encounter (statuses as of 07/10/2023) Active Problems Problem Noted Date Chronic atrial fibrillation 11/28/2022 Dyslipidemia, goal LDL below 130 018 HTN, GOAL BELOW 140/90 08/31/2009 Overview: Modified per HTN protocol #16. ADVANCE DIRECTIVE INFORMATION 08/15/2005 Overview: Yes, Patient instructed to provide copy of advance directive for provider to review and to be scanned into Electronic Medical Record documented as of this encounter (statuses as of 07/10/2023) Resolved Problems Problem Noted Date Resolved Date Closed fracture of hip 11/28/2022 Urge incontinence of urine 11/28/202207/03 Paroxysmal atrial [...] as of this encounter (statuses as of 07/10/2023) Immunizations Name Administration Dates Next Due Pneumococcal [...] as of this encounter Progress Notes * LEXX Leavitt - 07/10/2023 9:57 AM EDT MyCode Nonconsent Documentation Ying Rogers was approached in the clinic regarding participation in the MyCode Project and did not consent. documented in this encounter Plan of Treatment Upcoming Encounters Date Type Specialty Care Team Description 07/10/2023 Office Visit Family Medicine Redd Smiley, DO [address] [place] [address] Arrived 10/15/2023 Office Visit Podiatry Ruben Diallo, DPM [address] [place] [address] Health Maintenance Due Date Last [...] 4:01 PM 05/23/2004 4:01 PM Care Teams Handbag Parts Cutter Relationship Specialty Start Date End Date Redd Smiley DO [address] [place] [address] PCP - General Internal Medicine 08/15/21 documented as of this encounter
--- OUTSIDE RECORDS SUMMARY | 2023-11-13 06:20 | External Medical Summary | Summary of Care ---
Author Name Unknown Organization [facility] Address [address] [place] [address] Phone [phone] Care Team Providers Care Floor Clerk Name Role Phone Redd Smiley DO Primary Care Provid er Reason for Visit * Reason Onset Date Comments Status Check Go over Carmen bocanegra noted Medication Administration 07/10/2023 Flu an d/or Pneumo Inj Encounter Details Date Type Department Care Team Description 07/10/2023 Office Visit [facility] [address] [place] [address] Redd Smiley DO [address] [place] [phone] HTN, GOAL BELOW 140/90*; Need for prophylactic vaccination and inoculation against influenza; Chronic atrial fibrillation (HCC); Dyslipidemia, goal LDL below 130 Allergies Active Allergy Reactions Severity Noted Date [...] Sign Reading Time Taken Comments Blood Pressure 138/78 07/10/2023 10:13 AM EDT Pulse 77 07/10/2023 10:13 AM EDT Temperature 36.9 C (98.4 F) 07/10/2023 10:13 AM E DT Respiratory Rate 18 07/10/2023 10:13 AM EDT Oxygen Saturation - - Inhaled Oxygen Concentration - - Weight 66 kg (145 lb 8 oz) 07/10/2023 10:13 AM E DT Height - - Body Mass Index 24.21 02/20/2022 12:08 PM EDT documented in this encounter Patient Instructions * Patient Instructions* Diane Hammer LPN - 07/10/2023 10:14 AM EDT ~~PATIENT INSTRUCTIONS FOR FLU SHOT~~ Possible side effects of influenza vaccine, (flu shot), are usually mild and include: 1. Soreness or redness at injection site 2. Low grade fever 3. Body aches You may use Tylenol/Acetaminophen as needed for these symptoms. LET YOUR DOCTOR KNOW IMMEDIATELY IF YOU HAVE DIFFICULTY BREATHING OR SWALLOWING, EXPERIENCE ITCHINGOF FEET OR HANDS, HAVE SWELLING OF EYES, FACE OR INSIDE OF NOSE. documented in this encounter Progress Notes * Redd Smiley DO - 07/10/2023 10:38 AM EDT Subjective Ying Rogers is a 87 year old female. Chief Complaint Patient presents with Status Check Go over labs No problems noted Medication Administration Flu and/or Pneumo Inj HPI: Patient presents to office for routine follow up. Lab work done, results reviewed with patient. Medications list reviewed. Has history hypertension. Tolerating current medication regimen. Recent labs showed stable renal function and electrolytes. No symptoms noted be consistent with elevation of baseline blood pressure Has history of chronic atrial fibrillation on metoprolol tartrate 25 mg twice daily for rate control. Eliquis 2.5 mg twice daily for anticoagulation. Tolerating current medications. No bleeding events or complications on OAC. Denies any palpitations, chest pain, dyspnea or other cardiopulmonary symptoms Hyperlipidemia on atorvastatin 10 mg daily. Recent lipid panel goal. Tolerating medication without side effects Has history of anxiety/depression maintained on fluoxetine 20 mg daily. Feels medication still working well. Feels mood well controlled. No persistent symptoms of down or depressed. No feelings of SIor self-harm PMH: Patient Active Problem List Diagnosis Code ADVANCE DIRECTIVE INFORMATION HTN, GOAL BELOW 140/90 I10 Dyslipidemia, goal LDL below 130 E78.5 Chronic atrial fibrillation (HCC) I48.20 Current Outpatient Medications Medication Sig Dispense Refill [...] No current facility-administered medications for this visit. 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 age 39 Past Surgical History: Procedure Laterality Date LUMBAR SPINE FUSION W/BONE GRAFT 1988 PELVIS/HIP JOINT SURGERY NEC Left REMOVAL OF APPENDIX 1957 TOTAL HIP REPLACEMENT & PROSTHESIS Right Review of patient's allergies indicates: Allergen Reactions Morphine Psych complications Zocor [Simvastatin] Muscle pain Cephalexin [Cephalosporins] Dizziness and nausea Hctz [Hydrochlorothiazide] Abdominal pain Lisinopril Cough Penicillins Propoxyphene Napsylate Quinine Sulfate Family History Problem Relation Age of Onset Diabetes Mother Heart Disorder Mother Diabetes Brother Hypertension Brother Family Status Relation Status Mo stroke Fa accident, chemical plant Bro Alive Bro Alive Bro Alive Bro Alive Bro Alive Bro Alive Bro Alive Bro Alive Sis Alive Sis Alive Sis Alive Bro (Not Specified) Bro (Not Specified) Social History Socioeconomic History Marital status: Spouse name: Antonio Lea Number of children: 2 Years of education: 12 Highest education level: Not on file Occupational History Not on file Tobacco Use Smoking status: Never Smokeless tobacco: Never Vaping Use Vaping Use: Never used Substance and Sexual Activity Alcohol use: No Drug use: No Sexual activity: Yes Partners: Male Comment: occ, M x yrs Other Topics Concern Service Not Asked Blood Transfusions No Comment: 1989, diskectomy, own blood Caffeine Concern No Occupational Exposure Not Asked Hobby Hazards Not Asked Sleep Concern No Stress Concern No Weight Concern No Special Diet Not Asked Back Care Yes Exercise Yes Bike Helmet Not Asked Seat Belt Yes Self-Exams Yes Social History Narrative Not on file Social Determinants of Health Financial Resource Strain: Not on file Food Insecurity: Not on file Transportation Needs: Not on file Physical Activity: Not on file Stress: Not on file Social Connections: Not on file Intimate Partner Violence: Not on file Housing Stability: Not on file Review of Systems Constitutional: Negative for chills and fever. HENT: Negative for congestion, sore throat and trouble swallowing. Eyes: Negative for photophobia and itching. Respiratory: Negative for apnea and cough. Cardiovascular: Negative for chest pain and palpitations. Gastrointestinal: Negative for abdominal distention, abdominal pain, nausea and vomiting. Genitourinary: Negative for dysuria and frequency. Musculoskeletal: Negative for arthralgias and myalgias. Skin: Negative for pallor and rash. Neurological: Negative for dizziness, light-headedness and headaches. Psychiatric/Behavioral: Negative for sleep disturbance. The patient is not nervous/anxious. Objective BP 138/78 | Pulse 77 | Temp 36.9 C (98.4 F) (Infrared ) | Resp 18 | Wt 66 kg (145 lb 8 oz) | BMI 24.21 kg/m | BSA 1.74 m Physical Exam Constitutional: General: She is not in acute distress. Appearance: She is not ill-appearing. HENT: Head: Normocephalic and atraumatic. Right Ear: Tympanic membrane, ear canal and external ear normal. Left Ear: Tympanic membrane, ear canal and external ear normal. Nose: Nose normal. No congestion or rhinorrhea. Mouth/Throat: Mouth: Mucous membranes are moist. Pharynx: Oropharynx is clear. Eyes: General: No scleral icterus. Extraocular Movements: Extraocular movements intact. Conjunctiva/sclera: Conjunctivae normal. Pupils: Pupils are equal, round, and reactive to light. Cardiovascular: Rate and Rhythm: Normal rate and regular rhythm. Pulses: Normal pulses. Heart sounds: Normal heart sounds. No murmur heard. No friction rub. No gallop. Pulmonary: Effort: Pulmonary effort is normal. Breath sounds: Normal breath sounds. No wheezing, rhonchi or rales. Abdominal: General: Bowel sounds are normal. There is no distension. Palpations: Abdomen is soft. There is no mass. Tenderness: There is no abdominal tenderness. Musculoskeletal: General: No deformity. Normal range of motion. Cervical back: Normal range of motion and neck supple. Right lower leg: No edema. Left lower leg: No edema. Lymphadenopathy: Cervical: No cervical adenopathy. Skin: General: Skin is warm and dry. Coloration: Skin is not jaundiced. Findings: No rash. Neurological: General: No focal deficit present. Mental Status: She is oriented to person, place, and time. Cranial Nerves: No cranial nerve deficit. Sensory: No sensory deficit. Motor: No weakness. Psychiatric: Mood and Affect: Mood normal. Behavior: Behavior normal. Latest Reference Range & Units 07/02/23 08:37 Triglycerides <=174 mg/dL 68 Cholesterol <200 mg/dL 128 Non-HDL Cholesterol <=159 mg/dL 68 HDL Cholesterol >49 mg/dL 60 LDL Cholesterol <=129 mg/dL 54 Sodium 135 - 146 mmol/L 141 Potassium 3.5 - 5.1 mmol/L 4.0 Chloride 98 - 107 mmol/L 103 CO2 22 - 32 mmol/L 28 BUN 6 - 20 mg/dL 17 Creatinine 0.5 - 1.0 mg/dL 0.9 Estimated Glomerular Filtration Rate >=60 mL/min 65 Anion Gap 7 - 15 mmol/L 10 Glucose 70 - 120 mg/dL 88 Calcium 8.4 - 10.2 mg/dL 9.4 Protein 6.0 - 8.3 g/dL 7.0 CBC Rpt CBC WITH WBC DIFFERENTIAL Rpt ! WBC 4.00 - 10.80 K/uL 4.35 HGB 12.0 - 15.3 g/dL 12.5 HCT 36.0 - 45.2 % 39.8 MCV 81.5 - 97.5 fL 99.7 PLT 140 - 400 K/uL 143 Absolute Neutrophils 1.80 - 7.70 K/uL 2.57 Absolute Lymphocytes 1.00 - 4.80 K/ul 0.98 (L) Absolute Monocytes 0.00 - 1.10 K/uL 0.70 Absolute Eosinophils 0.00 - 0.70 K/uL 0.05 Absolute Basophils 0.00 - 0.20 K/uL 0.05 Albumin 3.8 - 5.0 g/dL 4.2 AST 10 - 35 U/L 44 (H) ALT 10 - 35 U/L 44 (H) Alkaline Phosphatase 35 - 130 U/L 80 Bilirubin, Total <=1.2 mg/dL 0.8 !: Data is abnormal (L): Data is abnormally low (H): Data is abnormally high Rpt: View report in Results Review for more information ASSESSMENT/PLAN: HTN, GOAL BELOW 140/90 (Primary) - ALBUMIN / CREATININE RATIO, URINE; Future; Expected date: 01/08/2024 - COMPREHENSIVE METABOLIC PANEL; Future; Expected date: 01/08/2024 - CBC WITH WBC DIFFERENTIAL; Future; Expected date: 01/08/2024 - LIPID PANEL WITH DIRECT LDL IF TG IS HIGH; Future; Expected date: 01/08/2024 Need for prophylactic vaccination and inoculation against influenza - INFLUENZA VACC, QUAD, HIGH DOSE (FLUZONE HD) Chronic atrial fibrillation (HCC) - ALBUMIN / CREATININE RATIO, URINE; Future; Expected date: 01/08/2024 - COMPREHENSIVE METABOLIC PANEL; Future; Expected date: 01/08/2024 - CBC WITH WBC DIFFERENTIAL; Future; Expected date: 01/08/2024 - LIPID PANEL WITH DIRECT LDL IF TG IS HIGH; Future; Expected date: 01/08/2024 Dyslipidemia, goal LDL below 130 - ALBUMIN / CREATININE RATIO, URINE; Future; Expected date: 01/08/2024 - COMPREHENSIVE METABOLIC PANEL; Future; Expected date: 01/08/2024 - CBC WITH WBC DIFFERENTIAL; Future; Expected date: 01/08/2024 - LIPID PANEL WITH DIRECT LDL IF TG IS HIGH; Future; Expected date: 01/08/2024 Plan: Patient presents to office for routine follow-up. Doing well overall. Continue current medications. Continue Lopressor 25 mg twice daily for rate control. Eliquis 2.5 mgtwice daily for anticoagulation related to Afib Does not require any medication refills at this time Repeat labs prior to next follow-up to re-evaluate renal function, electrolytes, urine albumin Flu shot given today Defers DEXA exam Follow Up: Return in about 6 months (around 01/08/2024), or if symptoms worsen or fail to improve, for Return with Physician. | For: Return with Physician | Check-out note: 6 month follow up Fasting labs , urine albumin 1 week prior Redd Smiley DO * Diane Hammer LPN - 07/10/2023 10:14 AM EDT PRE - ADMINISTRATION DOCUMENTATION Are you experiencing any cold symptoms or fever? No Have you had Guillain-Haiku Syndrome (an illness that causes paralysis) within the last 6 weeks? No Have you had the flu shot in the past? YES Have you ever had a reaction to the flu shot? No Diane Hammer LPN, 07/10/2023 10:14 AM documented in this encounter Nursing Notes * Diane Hammer LPN - 07/10/2023 10:59 AM EDT Pre-Administration Time Out Procedure Performed: Yes Patient Identified (Ask Name/Date of ): Yes Does the patient have a fever greater than 101 degrees today? No Patient allergic to latex? No Has the patient ever fainted after receiving an injection? No C Stock: No Immunization(s) verified: Yes, Immunization Name: Flu, VIS Sheet(s) given: Yes Verified Side and Site: Yes Verified Shot(s) with Parent(s)/Patient: Yes * Diane Hammer LPN - 07/10/2023 10:13 AM EDT The patient has been properly identified by confirmation of name and date of . Chief Complaint Patient presents with Status Check Go over labs No problems noted documented in this encounter Plan of Treatment Upcoming Encounters Date Type Specialty Care Team Description 10/15/2023 Office Visit Podiatry Ruben Diallo, LITA [address] [place] [address] 01/14/2024 Office Visit Family Medicine Redd Smiley, DO [address] [place] [phone] Scheduled Orders Name Type Priority Associated Diagnoses Orde r Schedule ALBUMIN / CREATININE RATIO, URINE Lab Routine Chronic atrial fibrillation (HCC) HTN, GOAL BELOW 140/90 Dyslipidemia, goal LDL below 130 Expected: 01/08/2024 (Approximate), Expires: 07/09/2024 COMPREHENSIVE METABOLIC PANEL Lab Routine Chronic atrial fibrillation (HCC) HTN, GOAL BELOW 140/90 Dyslipidemia, goal LDL below 130 Expected: 01/08/2024 (Approximate), Expires: 07/09/2024 CBC WITH WBC DIFFERENTIAL Lab Routine Chronic atrial fibrillation (HCC) HTN, GOAL BELOW 140/90 Dyslipidemia, goal LDL below 130 Expected: 01/08/2024 (Approximate), Expires: 07/10/2024 LIPID PANEL WITH DIRECT LDL IF TG IS HIGH Lab Routine Chronic atrial fibrillation (HCC) HTN, GOAL BELOW 140/90 Dyslipidemia, goal LDL below 130 Expected: 01/08/2024, Expires: 07/10/2024 Health Maintenance Due Date Last Done Comments [...] as of this encounter Visit Diagnoses Diagnosis HTN, GOAL BELOW 140/90- Primary Unspecified essential hypertension Need for prophylactic vaccination and inoculation against influenza Chronic atrial fibrillation (HCC) Atrial fibrillation Dyslipidemia, goal LDL below 130 Other and unspecified hyperlipidemia documented in this encounter Advance Directives Latest Code Status on File Code Status Date Activated Date Inactivated Comments None 05/23/2004 4:01 PM 05/23/2004 4:01 PM Care Teams Floor Clerk Relationship Specialty Start Date End Date Redd Smiley DO [address] [place] [address] [phone] PCP - General Internal Medicine 08/15/21 documented as of this encounter"
--- OUTSIDE RECORDS SUMMARY | 2023-11-13 06:21 | External Medical Summary ---
Author Name Unknown Address Unknown Organization [id number]:[facility] [place] [facility] [address] [facility] [place] [address] Laboratory Report Ordering Provider Test Date Status CHARLIE HYLTON 07/02/2023 08:37:11 Final Observation Date Value Abnormality Reference (Units ) Status Triglyceride 07/02/2023 08:37:11 68 <=174 ( mg/dL) Final Triglyceride Reference Range s (mg/dL):
<150 Acceptable
150-174 Borderline high
175-499 High
>=500 Very high Cholesterol 07/02/2023 08:37:11 128 <200 (mg /dL) Final Total Cholesterol Reference Ranges (mg/dL):
<200 Desirable
200-239 Borderline high
>=240 High HDL 07/02/2023 08:37:11 60 >49 (mg/dL ) Final HDL Cholesterol Reference Ra nges (mg/dL):
>=60 High (Desirable)
<50 Low (Undesirable) For Females
<40 Low (Undesirable) For Males NON-HDL CHOLESTEROL 07/02/2023 08:37:11 68 <=159 (mg/dL) Final Non-HDL Cholesterol Referenc e Range (mg/dL):
<100 Target level for high risk ASCVD patient
<130 Optimal for general population
130-159 Near optimal for general population
160-189 Borderline High
190-219 High
>=220 Very High LDL, (calculated) 07/02/2023 08:37:11 54 <= 129 (mg/dL) Final LDL Cholesterol Reference Ra nges (mg/dL):
<70 Target level for high risk ASCVD patient
<100 Optimal for general population
100-129 Near optimal for general population
130-159 Borderline high
160-189 High
>=190 Very high Performing Location [facility] [place] - [address] [facility] [id number]
--- OUTSIDE RECORDS SUMMARY | 2023-11-13 06:21 | External Medical Summary | Summary of Care ---
Author Name Unknown Organization [facility] Address [address] [place] [address] Phone [phone] Care Team Providers Care Biofuels Product Development Manager Name Role Phone Redd Smiley Primary Care Provid er Reason for Visit * Reason Onset Date Comments case management 07/01/2023 Encounter Details Date Type Department Care Team Description 07/01/2023 Drop Worker Telephone [address] [address] Shanelle Dick, RN [address] [place] [address] case management Allergies Active Allergy Reactions Severity Noted Date Comments Cephalosporins 12/05/2007 Dizziness and nausea Hydrochlorothiazide Abdominal pain 07/16/2018 Lisinopril Cough 01/30/2018 Morphine Psych complications High 05/23/2020 Penicillins 02/14/2001 Propoxyphene Napsylate 12/02/2001 Quinine Sulfate 02/16/2003 Simvastatin Muscle pain Medium 07/04/2010 documented as of this encounter (statuses as of 07/01/2023) Medications Medication Sig Dispensed Refills Start Date [...] as of this encounter (statuses as of 07/01/2023) Active Problems Problem Noted Date Closed fracture [...] as of this encounter (statuses as of 07/01/2023) Resolved Problems Problem Noted Date Resolved Date [...] as of this encounter (statuses as of 07/01/2023) Immunizations Name Administration Dates Next Due Pneumococcal [...] encounter Miscellaneous Notes * Telephone Encounter - Shanelle Dick RN - 07/01/2023 10:27 AM EDT CM Transition/Closure: Review of current patient status: SNP LOB: no Outstanding Goals: NONE Current Status of Advanced Care Planning: Pt. has ACP in place: advance directive Medications: Pt. can afford medications. Current Exacerbation Plan: n/a Community Resource Needs: All necessary community resource needs met/in place. Future Appointments Scheduled: Future Appointments-next 60 days Date/Time Provider Specialty Dept Phone 07/04/2023 8:30 AM Lab [facility] [phone] 07/09/2023 10:45 AM (Arrive by 10:30 AM) Ruben Diallo DPM Podiatry [phone] 07/10/2023 10:20 AM (Arrive by 10:05 AM) Redd Smiley DO Family Medicine [phone] No Appointment needed at this time. Health Plan Benefits assessed: yes Pt. Has had no utilization for a period of 6 months. Upon review of patient status plan to close patient from Outpatient Case Management services.. Reinforced CM contact information as well as PCP office contact information for any change in status or questions. Pt. made aware of this transition. Warm Hand-off: This note serves as written notification of Transition/Closure plan as well as handoff details. Warm hand-off conducted: No. Shanelle Dick RN Outpatient Case Management documented in this encounter Plan of Treatment Upcoming Encounters Date Type Specialty Care Team Description 07/04/2023 Laboratory Laboratory Alexandra, [facility] [address] [place] [address] 07/09/2023 Office Visit PodiatrRuben Dc DPM [address] [place] [address] 07/10/2023 Office Visit Family Medicine Redd Smileyothy, [address] [place] [address] Health Maintenance Due Date Last Done Comments [...] 4:01 PM 05/23/2004 4:01 PM Care Teams Biofuels Product Development Manager Relationship Specialty Start Date End Date Redd Smiley [facility] [address] [facility] [address] PCP - General Internal Medicine 08/15/21 documented as of this encounter
--- OUTSIDE RECORDS SUMMARY | 2023-11-13 06:21 | External Medical Summary ---
Author Name Unknown Address Unknown Organization [id number]:[facility] [place] - [address] [place] [address] Laboratory Report Ordering Provider Test Date Status CHARLIE HYLTON 07/02/2023 08:37:11 Final Observation Date Value Abnormality Reference (Units ) Status WBC, Total 07/02/2023 08:37:11 4.35 4.00-10.80 (K/uL) Final RBC 07/02/2023 08:37:11 3.99 3.85-5.15 (M/uL) Final Hemoglobin 07/02/2023 08:37:11 12.5 12.0-15.3 (g/dL) Final HCT 07/02/2023 08:37:11 39.8 36.0-45.2 (%) Final MCV 07/02/2023 08:37:11 99.7 81.5-97.5 (fL) Final MCH 07/02/2023 08:37:11 31.3 27.0-34.0 (pg) Final MCHC 07/02/2023 08:37:11 31.4 32.0-36.0 (g/dL) Final RDW 07/02/2023 08:37:11 12.9 11.5-15.5 (%) Final Platelets 07/02/2023 08:37:11 143 140-400 (K/uL) Final MPV 07/02/2023 08:37:11 11.2 6.6-11.1 (fL) Final Nucleated erythrocytes/100 leukocytes [Ratio] in Blood by Automated count 07/02/2023 08:37:11 0 <=0 (/100 WBCs) Final Performing Location [facility] [place] - [address] [place] [address]
--- OUTSIDE RECORDS SUMMARY | 2023-11-13 06:21 | External Medical Summary ---
Author Name Unknown Address Unknown Organization [id number]:[facility] [place] [facility] [address] [facility] [place] [address] Laboratory Report Ordering Provider Test Date Status CHARLIE HYLTON 07/02/2023 08:37:11 Final Observation Date Value Abnormality Reference (Units ) Status BUN 07/02/2023 08:37:11 17 6-20 (mg/dL) Final Creatinine 07/02/2023 08:37:11 0.9 0.5-1.0 (mg/dL) Final Glomerular filtration rate/1.73 sq M.predicted [Volume Rate/Area] in Serum, Plasma or Blood by Creatinine-based formula (CKD-EPI) 07/02/2023 08:37:11 65 >=60 (mL/min) Final eGFR is calculated based on the CKD-EPI 2020 equation SODIUM 07/02/2023 08:37:11 141 135-146 (m mol/L) Final Potassium 07/02/2023 08:37:11 4.0 3.5-5.1 (m mol/L) Final Cl 07/02/2023 08:37:11 103 98-107 (mm ol/L) Final CO2 07/02/2023 08:37:11 28 22-32 (mmo l/L) Final Anion gap 07/02/2023 08:37:11 10 7-15 (mmol /L) Final Glucose 07/02/2023 08:37:11 88 70-120 (mg /dL) Final Albumin 07/02/2023 08:37:11 4.2 3.8-5.0 (g /dL) Final AST (Aspartate aminotransferase) 07/02/2023 08:37:11 44 Above high normal 10-35 (U/L) Final Alk Phos 07/02/2023 08:37:11 80 35-130 (U/ L) Final Bilirubin, Total 07/02/2023 08:37:11 0.8 <=1 .2 (mg/dL) Final Calcium 07/02/2023 08:37:11 9.4 8.4-10.2 ( mg/dL) Final Protein 07/02/2023 08:37:11 7.0 6.0-8.3 (g /dL) Final ALT (Alanine aminotransferase) 07/02/2023 08:37:11 44 Above high normal 10-35 (U/L) Final Performing Location LABORATORY [place] - [address] [facility] [address]
--- OUTSIDE RECORDS SUMMARY | 2023-11-13 06:21 | External Medical Summary | Summary of Care ---
Author Name Unknown Organization [facility] Address [address] [place] [address] Phone [phone] Care Team Providers Care Dental Appliance Mechanic Name Role Phone Redd Guerra DO Primary Care Provid er Reason for Visit * Reason Comments eRx-Medication Refill Encounter Details Date Type Department Care Team Description 06/20/[address] [id number] Redd Guerra DO [address] [place] [id number] Dyslipidemia, goal to be determined Allergies Active Allergy Reactions Severity Noted Date Comments Cephalosporins 12/05/2007 Dizziness and nausea Hydrochlorothiazide Abdominal pain 07/16/2018 Lisinopril Cough 01/30/2018 Morphine Psych complications High 05/23/2020 Penicillins 02/14/2001 Propoxyphene Napsylate 12/02/2001 Quinine Sulfate 02/16/2003 Simvastatin Muscle pain Medium 07/04/2010 documented as of this encounter (statuses as of 06/21/2023) Medications Medication Sig Dispensed Refills Start Date [...] 01/15/2023 Active Eliquis 2.5 MG Oral Tablet (Apixaban)Indicati ons:Paroxysmal atrial fibrillation (HCC) TAKE 1 TABLET BY MOUTH IN THE MORNING AND 1 BEFORE BEDTIME. 180 Tablet 1 05/07/2023 Active Atorvastatin Calcium 10 MG Oral Tablet (Lipitor)Indicatio ns:Dyslipidemia, goal to be determined TAKE 1 TABLET BY MOUTH DAILY 90 Tablet 0 06/21/2023 Active Atorvastatin Calcium 10 MG Oral Tablet (Lipitor)Indicatio ns:Dyslipidemia, goal to be determined TAKE 1 TABLET BY MOUTH ONCE DAILY 90 Tablet 3 05/21/2022 3 Discontinued documented as of this encounter (statuses as of 06/21/2023) Active Problems Problem Noted Date Closed fracture [...] as of this encounter (statuses as of 06/21/2023) Resolved Problems Problem Noted Date Resolved Date [...] as of this encounter (statuses as of 06/21/2023) Immunizations Name Administration Dates Next Due Pneumococcal [...] encounter Miscellaneous Notes * Telephone Encounter - Aniya Mcnally [facility] - 06/21/2023 8:43 AM EDT RX authorized. Zero refills given until upcoming OV/LABS. Thank you, Aniya Mcnally PharmD Staff Pharmacist Refill Call Center [phone] 06/21/2023, 8:43 AM * Telephone Encounter - Aniya Mcnally [facility] - 06/21/2023 8:43 AM EDTSigned Prescriptions: Disp Refills Atorvastatin Calcium 10 MG Oral Tablet (Li*90 Tab*0 Sig: TAKE 1 TABLET BY MOUTH DAILYAuthorizing Provider: REDD GUERRA User: ANIYA MCNALLY IE documented in this encounter Plan of Treatment Upcoming Encounters Date Type Specialty Care Team Description 07/04/2023 Laboratory [facility] [address] [place] [address] 07/09/2023 Office Visit Podiatry Ruben Diallo, LITA [address] [place] [address] 07/10/2023 Office Visit Family Medicine Redd Guerra, DO [address] [place] [address] Health Maintenance Due Date Last Done Comments [...] 4:01 PM 05/23/2004 4:01 PM Care Teams Dental Appliance Mechanic Relationship Specialty Start Date End Date Redd Guerra, [address] [facility] [place] [address] PCP - General Internal Medicine 08/15/21 documented as of this encounter
--- OUTSIDE RECORDS SUMMARY | 2023-11-13 06:21 | External Medical Summary ---
Author Name Unknown Address Unknown Organization [id number]:[facility] [address] [facility] [place] [address] Laboratory Report Ordering Provider Test Date Status CHARLIE HYLTON 07/02/2023 08:37:11 Final Observation Date Value Abnormality Reference (Units ) Status SYNC LEUKOCYTES IN BLOOD BY AUTOMATED COUNT 07/02/2023 08:37:11 4.35 4.00-10.80 (K/uL) Final Segs 07/02/2023 08:37:11 59.2 40.0-75.0 (%) Final Lymphs % 07/02/2023 08:37:11 22.5 18.0-42.0 (%) Final Monos 07/02/2023 08:37:11 16.1 Above high normal 1.0-11.0 (%) Final Eosinophils 07/02/2023 08:37:11 1.1 0.0-6.0 (%) Final Basos 07/02/2023 08:37:11 1.1 0.0-2.0 (%) Final Immature Granulocyte, Percent 07/02/2023 08:37:11 0.0 0.0-2.0 (%) Final Absolute Segs 07/02/2023 08:37:11 2.57 1.80-7.70 (K/uL) Final Lymphs, absolute 07/02/2023 08:37:11 0.98 Below low normal 1.00-4.80 (K/ul) Final Monos, Abs 07/02/2023 08:37:11 0.70 0.00-1.10 (K/uL) Final Eos, Abs 07/02/2023 08:37:11 0.05 0.00-0.70 (K/uL) Final Basos, Abs 07/02/2023 08:37:11 0.05 0.00-0.20 (K/uL) Final Immature Granulocytes, Number 07/02/2023 08:37:11 0.00 0.00-0.20 (K/uL) Final Performing Location [facility] [address] [facility] [address]
[2023-11-13] MEDS: METOPROLOL TARTRATE 50 MG TAB PO STA (07:22)
[2023-11-13] MEDS: MULTIVITAMIN TAB PO SCH (07:22)
[2023-11-13] MEDS: FLUoxetine HCL 20 MG CAP PO SCH (07:22)
[2023-11-13] MEDS: CEFEPIME 2,000 MG in SYRINGE 0 ML IV SCH (07:51)
[2023-11-13] MEDS ORDERED: METOPROLOL TARTRATE 50 MG TAB PO SCH (09:00)
--- NOTE | 2023-11-13 15:05 | Electrocardiogram Report ---
Test Reason : Blood Pressure : / mmHG Vent. Rate : 150 BPM Atrial Rate : 000 BPM P-R Int : 000 ms QRS Dur : 070 ms QT Int : 320 ms P-R-T Axes : 000 -03 088 degrees QTc Int : 505 ms Atrial fibrillation with rapid ventricular response Poor R wave progression, consider anterior IL vs. lead placement vs. LVH Abnormal ECG When compared with ECG of 21-NOV-2022 14:47, Atrial fibrillation has replaced Atrial flutter T wave inversion no longer evident in Lateral leads Confirmed by Ramu Cooper ([id number]) on 11/13/2023 3:05:38 PM Referred By: REFERRED SELF Confirmed By:Ramu Cooper
[2023-11-13] MEDS: DAPTOmycin 225 MG in SYRINGE 0 ML IV SCH (16:04)
--- NOTE | 2023-11-13 16:33 | Hospitalist Progress Note ---
Date of Service November 13, 2023 Assessment & Plan (1) Acute UTI: (2) Atrial fibrillation with rapid ventricular response: (3) HTN (hypertension): (4) HLD (hyperlipidemia): (5) Anxiety: (6) GERD (gastroesophageal reflux disease): Plan This is an 88-year-old female with PMH of hypertension, chronic atrial fibrillation on Eliquis, dyslipidemia and other medical problems listed below who presents with lightheadedness and nausea and was found to have acute UTI and atrial fibrillation with RVR. Severe sepsis secondary to Enterococcus UTI Acute metabolic and cephalopathy secondary to sepsis History urge incontinence as per records Urine culture is growing probable Enterococcus Blood cultures pending Was on cefepime and daptomycin Cefepime has been discontinued and continue daptomycin for now She has been clinically much better PT and OT evaluation Rapid A-fib secondary to sepsis Heart rate has been around 100 during examination and improving Metoprolol has been increased to 50 mg twice daily Patient on Eliquis Hypertension, slight elevated secondary illness Hyperlipidemia on statin Rx GERD stable on regimen Hyperglycemia rule out DM DVT prophylaxis. Eliquis DNR as per patient's prior directives as per daughter/POA, Ms. Daphne Daniels. She requests updates providers through [phone]. Admission and Anticipated Discharge Date Admission Date: November 12, 2023 Subjective 11/13/2023 The patient was seen and examined in emergency room in presence of the family members She was admitted with dizzy spells and generalized weakness with change in mental status Noted to have sepsis secondary to UTI Has been feeling lot better since admission Remains generally weak but does not have any other symptoms Review of Systems Review of Systems: All systems reviewed and are unremarkable except as noted below Physical Exam Physical Exam: Lying in bed comfortably Constitutional: average body habitus; not ill appearing Eyes: PERRL, conjunctivae normal, anicteric sclerae ENMT: external ear and nose normal, oropharynx normal Neck: trachea midline, no thyromegaly Respiratory: no respiratory distress Auscultation: + diminished lung sounds and + crackles (Minimal crackles at the bases) Cardiovascular: Rate/Rhythm: + tachycardic and + irregularly irregular Heart Sounds: normal S1, normal S2 and + murmur Extremities: no edema Gastrointestinal (Abdomen): Inspection/Auscultation: normal bowel sounds; abdomen not distended Percussion/Palpation: + abdomen tender (Hypogastric tenderness without guarding and no rigidity) and abdomen soft Musculoskeletal: No acute arthritis involving any of the joint but she has changes due to osteoarthritis Neurologic: Alert, awake and oriented x 3, generally weak male but moves all extremities Lymphatic: no cervical or axillary lymphadenopathy Results & Data Results & Data Vital Signs (Past 12 Hours) Vital Signs Temp Pulse Pulse Resp BP Pulse Ox O2 Del Method 11/13/23 16:03 101 H 23 134/66 95 Room Air 11/13/23 11:45 37.2 C 90 17 131/81 95 Room Air 11/13/23 08:35 102 H 11/13/23 07:21 37 C 115 H 18 148/94 H 94 Room Air 11/13/23 04:56 37.2 C 83 20 143/82 H 93 Room Air Laboratory Results Short CBC 11/12/23 11/13/23 Range/Units 17:58 04:02 WBC 17.25 H 14.55 H (4.8-10.8) K/ul Hgb 12.2 12.2 (12.0-16.0) g/dl Hct 36.1 L 35.3 L (37.0-47.0) % Plt Count 126 L 129 L (130-400) K/uL BMP 11/12/23 11/13/23 17:58 04:02 Sodium 129 L 136 Potassium 3.6 4.1 Chloride 94 L 104 Carbon Dioxide 25 25 BUN 13 12 Creatinine 0.66 0.63 Glucose 144 H 104 H Calcium 8.8 8.8 Cardiac Enzymes 11/12/23 Range/Units 17:58 Total Creatine Kinase 123 (26-192) U/L Liver Function 11/12/23 Range/Units 17:58 Total Bilirubin 1.9 H (0.2-1.0) mg/dl AST 28 (13-39) U/L ALT 15 (7-52) U/L Alkaline Phosphatase 72 (34-104) U/L Albumin 3.7 (3.4-5.0) gm/dl Urine 11/12/23 Range/Units 18:11 Urine Color [place] Urine Appearance Turbid A (Clear) Urine pH 5.5 (4.5-7.5) Ur Specific [place] 1.019 (1.000-1.030) Urine Protein 2+ H (Negative) Urine Glucose (UA) Negative (Negative) Medications Administered Current Inpatient Medications Acetaminophen (Acetaminophen 325 Mg Tab) 650 mg PO Q6H PRN PRN Reason: pain Stop: 12/12/23 22:41 Apixaban (Apixaban 2.5 Mg Tab) 2.5 mg PO BID [facility] Stop: 12/12/23 22:41 Last Admin: 11/13/23 07:22 Dose: 2.5 mg Atorvastatin Calcium (Atorvastatin 10 Mg Tab) 10 mg PO HS [facility] Stop: 12/12/23 22:41 Last Admin: 11/12/23 23:58 Dose: 10 mg Fluoxetine HCl (Fluoxetine Hcl 20 Mg Cap) 20 mg PO QAM [facility] Stop: 12/13/23 08:59 Last Admin: 11/13/23 07:22 Dose: 20 mg Promethazine HCl 6.25 mg/ (Sodium Chloride) 50.25 mls @ 201 mls/hr IV Q6H PRN PRN Reason: Nausea And Vomiting Stop: 12/12/23 20:35 Daptomycin 225 mg/ Syringe 4.5 mls @ 2.25 mls/min IV Q24H [facility]; Protocol Stop: 11/23/23 15:59 Last Admin: 11/13/23 16:04 Dose: 2.25 mls/min Metoprolol Tartrate (Metoprolol Tartrate 50 Mg Tab) 50 mg PO BID [facility] Stop: 12/13/23 20:59 Multivitamins (Multivitamin Tab) 1 tab PO DAILY [facility] Stop: 12/13/23 08:59 Last Admin: 11/13/23 07:22 Dose: 1 tab
[2023-11-13] MEDS: METOPROLOL TARTRATE 50 MG TAB PO SCH (20:14)
[2023-11-14] MEDS: METOPROLOL TARTRATE 1 MG/ML VIAL IV STA ×2 (02:35→17:27)
[2023-11-14 06:31] LABS: Basophils # (auto) 0.05 K/uL (0.00-0.20); Basophils % (auto) 0.5 %; Eosinophils # (auto) 0.03 K/uL (0.00-0.50); Eosinophils % (auto) 0.3 %; Hematocrit (blood only) 36.4 % (37.0-47.0); Hemoglobin 11.9 g/dl (12.0-16.0); Immature Granulocytes # (auto) 0.03 K/uL (0.01-0.20); Immature Granulocytes % (auto) 0.3 %; Lymphocytes # (auto) 0.97 K/uL (1.20-3.40); Lymphocytes % (auto) 9.7 %; Mean Corpuscular Hemoglobin 31.1 pg (25.0-34.0); Mean Corpuscular Hgb Conc 32.7 g/dL (32.0-36.0); Monocytes # (auto) 1.03 K/uL (0.11-0.59); Monocytes % (auto) 10.3 %; Neutrophils # (auto) 7.87 K/uL (1.40-6.50); Neutrophils % (auto) 78.9 %; Platelet Count 141 K/uL (130-400); RDW Standard Deviation 45.2 fL (36.4-46.3); Red Blood Count 3.83 M/uL (4.20-5.40); White Blood Count 9.98 K/ul (4.8-10.8)
[2023-11-14 06:59] LABS: Albumin Globulin Ratio 1.1 (0.9-2); Albumin Level 3.4 gm/dl (3.4-5.0); BUN Creatinine Ratio 23.5 (10-20); Bilirubin,Total 1.6 mg/dl (0.2-1.0); Creatinine Clr Calc Pharmacy 68.4 ml/min; Est GFR (African American) 98.8 ml/min; Est GFR (Non-African American) 85.3 ml/min; Globulin 3.2 gm/dl (2.5-4.0); Magnesium 1.7 mg/dl (1.7-2.4); Phosphorus 2.6 mg/dl (2.5-4.9); Potassium 4.1 mmol/L (3.5-5.1); Total Protein 6.6 gm/dl (6.0-8.3)
--- NOTE | 2023-11-14 14:21 | Hospitalist Progress Note ---
Date of Service November 14, 2023 Assessment & Plan (1) Acute UTI: (2) Atrial fibrillation with rapid ventricular response: (3) HTN (hypertension): (4) HLD (hyperlipidemia): (5) Anxiety: (6) GERD (gastroesophageal reflux disease): Plan This is an 88-year-old female with PMH of hypertension, chronic atrial fibrillation on Eliquis, dyslipidemia and other medical problems listed below who presents with lightheadedness and nausea and was found to have acute UTI and atrial fibrillation with RVR. Severe sepsis secondary to Enterococcus UTI Acute metabolic and cephalopathy secondary to sepsis History urge incontinence as per records Urine culture is growing probable Enterococcus Blood cultures -negative Was on cefepime and daptomycin Cefepime has been discontinued and continue daptomycin for now She has been clinically much better Feels even better today without any fever and or chills White count has been normalized Still awaiting further identification of Enterococcus and sensitivity Will continue intravenous daptomycin for now Rapid A-fib secondary to sepsis Heart rate has been around 100 during examination and improving Metoprolol has been increased to 50 mg twice daily Patient on Eliquis Heart rate remains stable during my dictation and in the morning it was elevated Hypertension, slight elevated secondary illness Hyperlipidemia on statin Rx GERD stable on regimen Hyperglycemia rule out DM-hemoglobin A1c has been negative for diabetes at 5.6 DVT prophylaxis. Eliquis DNR as per patient's prior directives as per daughter/POA, Ms. Daphne Daniels. She requests updates providers through [phone]. Likely discharge tomorrow Admission and Anticipated Discharge Date Admission Date: November 12, 2023 Subjective 11/13/2023 The patient was seen and examined in emergency room in presence of the family members She was admitted with dizzy spells and generalized weakness with change in mental status Noted to have sepsis secondary to UTI Has been feeling lot better since admission Remains generally weak but does not have any other symptoms 11/17/2023 The patient was seen and examined in telemetry unit She has been feeling much better Heart rate is not yet controlled but denies any symptoms No fever and no chills, no nausea and or vomiting Review of Systems Review of Systems: All systems reviewed and are unremarkable except as noted below Physical Exam Physical Exam: Lying in bed comfortably Constitutional: average body habitus; not ill appearing Eyes: PERRL, conjunctivae normal, anicteric sclerae ENMT: external ear and nose normal, oropharynx normal Neck: trachea midline, no thyromegaly Respiratory: no respiratory distress Auscultation: + diminished lung sounds and + crackles (Minimal crackles at the bases) Cardiovascular: Rate/Rhythm: + tachycardic and + irregularly irregular Heart Sounds: normal S1, normal S2 and + murmur Extremities: no edema Gastrointestinal (Abdomen): Inspection/Auscultation: normal bowel sounds; abdomen not distended Percussion/Palpation: + abdomen tender (Hypogastric tenderness without guarding and no rigidity) and abdomen soft Lymphatic: no cervical or axillary lymphadenopathy Results & Data Results & Data Vital Signs (Past 12 Hours) Vital Signs Temp Pulse Pulse Resp BP BP Pulse Ox 11/14/23 12:02 36.9 C 79 18 112/73 96 11/14/23 09:33 132 H 11/14/23 07:40 36.8 C 134 H 18 124/80 92 11/14/23 05:57 148 H 140/76 11/14/23 03:33 36.5 C 83 18 128/69 96 11/14/23 02:49 110 H 146/78 H 11/14/23 02:35 142 H 129/80 11/14/23 02:21 36.3 C L 142 H 20 129/80 94 O2 Del Method 11/14/23 12:02 Room Air 11/14/23 09:33 11/14/23 07:40 Room Air 11/14/23 05:57 11/14/23 03:33 Room Air 11/14/23 02:49 11/14/23 02:35 11/14/23 02:21 Room Air Laboratory Results Short CBC 11/14/23 Range/Units 05:49 WBC 9.98 (4.8-10.8) K/ul Hgb 11.9 L (12.0-16.0) g/dl Hct 36.4 L (37.0-47.0) % Plt Count 141 (130-400) K/uL BMP 11/14/23 05:49 Sodium 136 Potassium 4.1 Chloride 103 Carbon Dioxide 25 BUN 12 Creatinine 0.51 L Glucose 101 H Calcium 9.0 Liver Function 11/14/23 Range/Units 05:49 Total Bilirubin 1.6 H (0.2-1.0) mg/dl AST 54 H (13-39) U/L ALT 31 (7-52) U/L Alkaline Phosphatase 89 (34-104) U/L Albumin 3.4 (3.4-5.0) gm/dl Medications Administered Current Inpatient Medications Acetaminophen (Acetaminophen 325 Mg Tab) 650 mg PO Q6H PRN PRN Reason: pain Stop: 12/12/23 22:41 Apixaban (Apixaban 2.5 Mg Tab) 2.5 mg PO BID [facility] Stop: 12/12/23 22:41 Last Admin: 11/14/23 08:23 Dose: 2.5 mg Atorvastatin Calcium (Atorvastatin 10 Mg Tab) 10 mg PO HS [facility] Stop: 12/12/23 22:41 Last Admin: 11/12/23 23:58 Dose: 10 mg Fluoxetine HCl (Fluoxetine Hcl 20 Mg Cap) 20 mg PO QAM [facility] Stop: 12/13/23 08:59 Last Admin: 11/14/23 08:23 Dose: 20 mg Promethazine HCl 6.25 mg/ (Sodium Chloride) 50.25 mls @ 201 mls/hr IV Q6H PRN PRN Reason: Nausea And Vomiting Stop: 12/12/23 20:35 Daptomycin 225 mg/ Syringe 4.5 mls @ 2.25 mls/min IV Q24H [facility]; Protocol Stop: 11/23/23 15:59 Last Admin: 11/13/23 16:04 Dose: 2.25 mls/min Metoprolol Tartrate (Metoprolol Tartrate 50 Mg Tab) 50 mg PO BID [facility] Stop: 12/13/23 20:59 Last Admin: 11/14/23 05:56 Dose: 50 mg Multivitamins (Multivitamin Tab) 1 tab PO DAILY [facility] Stop: 12/13/23 08:59 Last Admin: 11/14/23 08:23 Dose: 1 tab
[2023-11-14] MEDS: SODIUM CHLORIDE 0.9% 500 ML IV ONE (18:25)
[2023-11-14] MEDS: dilTIAZem HCl 5 MG/ML 5 ML VIAL IV STA ×2 (20:04→22:48)
[2023-11-14] MEDS ORDERED: STAT IV Infusion **Titration per Protocol STA (22:29)
[2023-11-14] MEDS: dilTIAZem HCL 125 MG in DEXTROSE 5% 100 ML IV SCH (22:49)
[2023-11-15 06:40] LABS: BUN Creatinine Ratio 20.3 (10-20); Calcium 8.9 mg/dl (8.6-10.3); Creatinine Clr Calc Pharmacy 59.1 ml/min; Est GFR (African American) 94.2 ml/min; Est GFR (Non-African American) 81.3 ml/min; Magnesium 1.6 mg/dl (1.7-2.4); Potassium 3.9 mmol/L (3.5-5.1)
--- NOTE | 2023-11-15 13:15 | Hospitalist Progress Note ---
Date of Service November 15, 2023 Assessment & Plan (1) Acute UTI: (2) Atrial fibrillation with rapid ventricular response: (3) HTN (hypertension): (4) HLD (hyperlipidemia): (5) Anxiety: (6) GERD (gastroesophageal reflux disease): Plan This is an 88-year-old female with PMH of hypertension, chronic atrial fibrillation on Eliquis, dyslipidemia and other medical problems listed below who presents with lightheadedness and nausea and was found to have acute UTI and atrial fibrillation with RVR. Severe sepsis secondary to Enterococcus UTI Acute metabolic and cephalopathy secondary to sepsis History urge incontinence as per records Urine culture is growing probable Enterococcus Blood cultures -negative Was on cefepime and daptomycin Cefepime has been discontinued and continue daptomycin for now She has been clinically much better Feels even better today without any fever and or chills White count has been normalized Still awaiting further identification of Enterococcus and sensitivity Will continue intravenous daptomycin for now Urine culture developed Enterococcus faecalis and that is resistant to fluoroquinolones Will finish the course of intravenous daptomycin for a total of 5 days Rapid A-fib secondary to sepsis Heart rate has been around 100 during examination and improving Metoprolol has been increased to 50 mg twice daily Patient on Eliquis Heart rate remains stable during my dictation and in the morning it was elevated Has been going in and out of A-fib with RVR-required a few doses of intravenous Lopressor on top of increasing dose of oral beta-viri Has been on intravenous Cardizem drip since last night We will get an advised from brush washer before discharge Hypertension, slight elevated secondary illness Hyperlipidemia on statin Rx GERD stable on regimen Hyperglycemia rule out DM-hemoglobin A1c has been negative for diabetes at 5.6 DVT prophylaxis. Eliseo DNR as per patient's prior directives as per daughter/POA, Ms. Daphne Daniels. She requests updates providers through [phone]. Likely discharge in a day or 2 Admission and Anticipated Discharge Date Admission Date: November 12, 2023 Subjective 11/13/2023 The patient was seen and examined in emergency room in presence of the family members She was admitted with dizzy spells and generalized weakness with change in mental status Noted to have sepsis secondary to UTI Has been feeling lot better since admission Remains generally weak but does not have any other symptoms 11/14/2023 The patient was seen and examined in telemetry unit She has been feeling much better Heart rate is not yet controlled but denies any symptoms No fever and no chills, no nausea and or vomiting 11/15/2023 Patient was seen and examined in telemetry unit She was noted to have A-fib with RVR yesterday afternoon and also last night Started on intravenous Cardizem since last night No complaints today In the heart rate is controlled Review of Systems Review of Systems: All systems reviewed and are unremarkable except as noted below Physical Exam Physical Exam: Lying in bed comfortably Constitutional: average body habitus; not ill appearing Eyes: PERRL, conjunctivae normal, anicteric sclerae ENMT: external ear and nose normal, oropharynx normal Neck: trachea midline, no thyromegaly Respiratory: no respiratory distress Auscultation: + diminished lung sounds and + crackles (Minimal crackles at the bases) Cardiovascular: Rate/Rhythm: + tachycardic and + irregularly irregular Heart Sounds: normal S1, normal S2 and + murmur Extremities: no edema Gastrointestinal (Abdomen): Inspection/Auscultation: normal bowel sounds; abdomen not distended Percussion/Palpation: + abdomen tender (Hypogastric tenderness without guarding and no rigidity) and abdomen soft Musculoskeletal: No acute arthritis involving any of the joint Neurologic: normal touch/pain/proprioception and moves all extremities; no focal motor deficits Psychiatric: A+Ox3, euthymic affect Lymphatic: no cervical or axillary lymphadenopathy Results & Data Results & Data Vital Signs (Past 12 Hours) Vital Signs Temp Pulse Pulse Resp BP Pulse Ox O2 Del Method 11/15/23 11:57 36.8 C 78 18 129/69 91 Room Air 11/15/23 09:29 86 11/15/23 07:58 36.7 C 90 18 156/85 H 91 Room Air 11/15/23 02:50 36.8 C 97 H 18 148/76 H 90 Room Air Laboratory Results BMP 11/15/23 05:52 Sodium 135 L Potassium 3.9 Chloride 101 Carbon Dioxide 25 BUN 12 Creatinine 0.59 L Glucose 114 H Calcium 8.9 Medications Administered Current Inpatient Medications Acetaminophen (Acetaminophen 325 Mg Tab) 650 mg PO Q6H PRN PRN Reason: pain Stop: 12/12/23 22:41 Apixaban (Apixaban 2.5 Mg Tab) 2.5 mg PO BID [facility] Stop: 12/12/23 22:41 Last Admin: 11/15/23 07:35 Dose: 2.5 mg Atorvastatin Calcium (Atorvastatin 10 Mg Tab) 10 mg PO HS [facility] Stop: 12/12/23 22:41 Last Admin: 11/12/23 23:58 Dose: 10 mg Fluoxetine HCl (Fluoxetine Hcl 20 Mg Cap) 20 mg PO QAM [facility] Stop: 12/13/23 08:59 Last Admin: 11/15/23 07:35 Dose: 20 mg Promethazine HCl 6.25 mg/ (Sodium Chloride) 50.25 mls @ 201 mls/hr IV Q6H PRN PRN Reason: Nausea And Vomiting Stop: 12/12/23 20:35 Daptomycin 225 mg/ Syringe 4.5 mls @ 2.25 mls/min IV Q24H [facility]; Protocol Stop: 11/17/23 16:01 Last Admin: 11/14/23 15:27 Dose: 2.25 mls/min Diltiazem HCl 125 mg/ Dextrose 125 mls @ 5 mls/hr IV .Q24H [facility]; Protocol Stop: 12/14/23 22:29 Last Admin: 11/14/23 22:49 Dose: 5 mg/hr, 5 mls/hr Metoprolol Tartrate (Metoprolol Tartrate 50 Mg Tab) 50 mg PO BID [facility] Stop: 12/13/23 20:59 Last Admin: 11/15/23 07:35 Dose: 50 mg Multivitamins (Multivitamin Tab) 1 tab PO DAILY [facility] Stop: 12/13/23 08:59 Last Admin: 11/15/23 07:35 Dose: 1 tab
[2023-11-15] MEDS: MAGNESIUM SULFATE / D5W 1 GM/100 ML BAG IV ONE (13:45)
--- NOTE | 2023-11-15 14:35 | Cardiology Consultation ---
Date of Consultation November 15, 2023 Assessment & Plan (1) Acute UTI: (2) Atrial fibrillation with rapid ventricular response: Plan Assessment: 88 year-old female presents to the hospital with 3 day onset of nausea and lightheadedness. Found to have a UTI as well as Atrial fibrillatin with RVR. Plan 1. Acute UTI -Continued management per primary team with IV antibiotics 2. Atrial fibrillation with RVR -Remains asymptomatic -known prior history of A-fib initially diagnosed in 2021 during an acute Covid infection. -No formal cardiology follow up. -Given findings of Echo dated 10/2021, suspect A-fib has been long standing and likely persistent. Severely enlarged left atrium. While cardiac testing has remains sparse since the course of hospitalization all EKG's have shown A-fib. -Currently on Cardizem gtt. Will obtain echocardiogram to assess overall structure and function. -Rate currently controlled at the time of exam. will discuss PO transition with Dr. Medina -patient was previously on metoprolol tartrate 25mg PO BID, would recommend resuming and titrate as needed. -Continue on Eliquis 2.5mg PO BID (reduced dosing due to age and hx of CKD) -Euvolemic on physical exam Case has been discussed with Dr. Medina. Further recommendations regarding plan of care as per his assessment. I spent a total of 30 minutes on the date of service in preparation, delivery, documentation of the care provided to the patient excluding any time spent in the performance of separately billed services. SONYA Aguilar [facility] Cardiology [facility] Supervising Physician Co-Signing Physician Notes Attending attestation: Case reviewed with the advanced practitioner. I have personally performed a history and physical examination on the patient. I have reviewed the advanced practitioner's documentation on the date of service referenced in note, and I agree with, and take responsibility for the plan of care. Subjective: Patient without subjective complaint. Telemetry reveals atrial fibrillation with rapid ventricular response, Rate as high as 140 bpm, but often between 80 and 100 bpm. Bedside echocardiogram reveals severe left atrial lodgment, preserved biventricular systolic function. Exam: Cardiovascular: Irregular rhythm, 1/6 systolic murmur, no edema Data: EKG performed 11/12/2023 and interpreted independantly: Atrial fibrillation with rapid ventricular sponsor at 150 bpm. Blood cultures x 2 : no growth thus far Urine culture revealing Enterococcus faecalis and alpha strep Impression/ Plan: Urinary tract infection Permanent atrial fibrillation, rapid ventricular rate * Metoprolol tartrate has been titrated from prior to hospital dose of 25 mg twice daily to 50 mg twice daily and rates remain high. * Increase metoprolol to tartrate to 50 mg 3 times daily * Continue diltiazem infusion at 5 mg/h for now, with hopes to wean by tomorrow * At digoxin 0.125 mg p.o. daily * Continue Eliquis for stroke prophylaxis I spent a total of 20 minutes coordinating, documenting, and providing care for this patient excluding time spent in the performance of separately billed services or time spent by another provider. Herman Medina DO History of Present Illness Reason for Consultation: Atrial fibrillation Requesting Physician: Jean-Claude jimenez Attending Physician: Nacho Leslie MD History of Present Illness HPI: Patient is a 88 year old female with PMHx significant for HTN, Atrial fibrillation (on Eliquis), and dyslipidemia that presented to the ED with lightheadedness and nausea x3 days. She was found to have a UTI. During the course of evaluation EKG was obtained showing A-fib with RVR rates 150bpm. Patient is a good historian and family is also present in the room. She states that she was diagnosed with A-fib 2021 in the setting of an acute Covid infection. She has never followed up with a machine stoppage frequency checker since the time of that admission, but believes that she is in A-fib all of the time. She denies any feelings of chest pain, pressure, palpitations, no shortness of breath, pre- syncope, syncope or edema. last echocardiogram dated back to 10/2021 which shows LV wall motion is normal. LVEF 55-60%, right ventricle mildly enlarged. Left atrium severely dilated, right atrium mildly dilated Aortic valve sclerosis without stenosis Mild TR Mild MR small PFO is observed. Review of telemetry shows A-fib currently in the 80's. Rates variable 100-140's. Allergies Allergy/AdvReac Type Severity Reaction Status Date / Time Penicillins Allergy Unknown UNKNOWN Verified 11/12/23 19:01 propoxyphene Allergy Unknown UNKNOWN Verified 11/12/23 19:01 quinine Allergy Unknown Unknown Verified 11/12/23 19:01 morphine AdvReac Severe extreme Verified 11/12/23 19:01 confusion Cephalosporins AdvReac Intermediate DIZZINESS Verified 11/12/23 19:01 & NAUSEA lisinopril AdvReac Intermediate COUGH Verified 11/12/23 19:01 simvastatin AdvReac Intermediate MUSCLE PAIN Verified 11/12/23 19:01 Home Medications Medication Instructions Recorded Confirmed Type atorvastatin 10 mg tablet 10 mg PO HS 04/19/20 11/12/23 History fluoxetine 20 mg capsule 20 mg PO QAM 04/19/20 11/12/23 History acetaminophen 325 mg tablet 650 mg (2 x 325 mg) PO Q6H PRN 04/22/20 11/12/23 Rx pain #50 tabs apixaban 2.5 mg tablet (Eliquis) 2.5 mg PO BID 11/21/22 11/12/23 History multivitamin 1 tab PO DAILY 11/21/22 11/12/23 History metoprolol tartrate 25 mg tablet 25 mg PO BID 11/12/23 11/12/23 History Patient History Medical History Anxiety Chronic atrial fibrillation COVID-19 Closed fracture of right hip GERD (gastroesophageal reflux disease) HLD (hyperlipidemia) HTN (hypertension) Surgical History History of total right hip replacement Hx of appendectomy History of hip surgery Left H/O spinal fusion Family History Other Diabetes Heart disease Hypertension Social History Smoking Status: Never smoker Second Hand Exposure: No; Do You Dip or Chew Tobacco: No; Hx Alcohol Use: No Hx Substance Use: No Preferred Language: Serbian Communication Ability: Effective 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 Beliefs That Will Affect Care: None marital status: / Current Living Situation: Alone Other Information That Helps Us Care for You: No Feels Safe at Home: Yes Safety Concerns: Feels Safe At This Time Assistive Devices: Walker Review of Systems Review of Systems: All systems reviewed & are unremarkable except as noted in HPI & below Physical Exam Constitutional: well developed and well nourished; not ill appearing Respiratory: normal respiratory effort, lungs clear to auscultation Cardiovascular: Rate/Rhythm: + irregularly irregular Heart Sounds: normal S1, normal S2 and + murmur (+1/6 systolic) Vessels: no JVD Skin: no rashes, warm and dry Psychiatric: A+Ox3, euthymic affect Results & Data Vital Signs (Past 12 Hours) Vital Signs Temp Pulse Pulse Resp BP Pulse Ox O2 Del Method 11/15/23 11:57 36.8 C 78 18 129/69 91 Room Air 11/15/23 09:29 86 11/15/23 07:58 36.7 C 90 18 156/85 H 91 Room Air 11/15/23 02:50 36.8 C 97 H 18 148/76 H 90 Room Air Laboratory Results Comprehensive Metabolic Panel 11/15/23 Range/Units 05:52 Sodium 135 L (136-145) mmol/L Potassium 3.9 (3.5-5.1) mmol/L Chloride 101 (98-107) mmol/L Carbon Dioxide 25 (21-32) mmol/L BUN 12 (6-23) mg/dl Creatinine 0.59 L (0.6-1.2) mg/dl Glucose 114 H (70-99(Fasting)) mg/dl Calcium 8.9 (8.6-10.3) mg/dl Intake and Output 11/14/23 11/15/23 11/15/23 22:59 06:59 14:59 Intake Total 650 / 1610 Balance 650 / 1610 Intake: IV 500 / 500 Sodium Chloride 0.9% 500 ml @ 500 / 500 999 mls/hr IV .Q31M ONE Rx#: [id number] Oral 150 / 1110 Other: Other Intake Source SIPS # Unmeasured Voids 1 Weight 67.3 kg Weight Measurement Method Built in [facility]
[2023-11-15] MEDS: DIGOXIN 0.125 MG TAB PO SCH (16:13)
[2023-11-15] MEDS: METOPROLOL TARTRATE 50 MG TAB PO SCH (20:05)
[2023-11-16 09:43] LABS: BUN Creatinine Ratio 18.3 (10-20); Calcium 8.8 mg/dl (8.6-10.3); Creatinine Clr Calc Pharmacy 58.4 ml/min; Est GFR (African American) 93.7 ml/min; Est GFR (Non-African American) 80.8 ml/min; Magnesium 1.7 mg/dl (1.7-2.4); Potassium 3.5 mmol/L (3.5-5.1)
--- NOTE | 2023-11-16 12:39 | Hospitalist Progress Note ---
Date of Service November 16, 2023 Assessment & Plan (1) Acute UTI: (2) Atrial fibrillation with rapid ventricular response: (3) HTN (hypertension): (4) HLD (hyperlipidemia): (5) Anxiety: (6) GERD (gastroesophageal reflux disease): Plan This is an 88-year-old female with PMH of hypertension, chronic atrial fibrillation on Eliquis, dyslipidemia and other medical problems listed below who presents with lightheadedness and nausea and was found to have acute UTI and atrial fibrillation with RVR. Severe sepsis secondary to Enterococcus UTI Acute metabolic and cephalopathy secondary to sepsis History urge incontinence as per records Urine culture is growing probable Enterococcus Blood cultures -negative Was on cefepime and daptomycin Cefepime has been discontinued and continue daptomycin for now She has been clinically much better Feels even better today without any fever and or chills White count has been normalized Still awaiting further identification of Enterococcus and sensitivity Will continue intravenous daptomycin for now Urine culture developed Enterococcus faecalis and that is resistant to fluoroquinolones Will finish the course of intravenous daptomycin for a total of 5 days No signs and or symptoms of UTI Antibiotic course will be finished tomorrow Rapid A-fib secondary to sepsis Heart rate has been around 100 during examination and improving Metoprolol has been increased to 50 mg twice daily Patient on Eliquis Heart rate remains stable during my dictation and in the morning it was elevated Has been going in and out of A-fib with RVR-required a few doses of intravenous Lopressor on top of increasing dose of oral beta-viri Has been on intravenous Cardizem drip since last night We will get an advised from instruction librarian before discharge Cardizem drip has been discontinued since this morning-heart rate remains stable at 83 Continue current dose of beta-viri which may need to be increased to control the heart rate Likely discharge tomorrow or day after Hypertension, slight elevated secondary illness Hyperlipidemia on statin Rx GERD stable on regimen Hyperglycemia rule out DM-hemoglobin A1c has been negative for diabetes at 5.6 DVT prophylaxis. Eliseo DNR as per patient's prior directives as per daughter/POA, Ms. Daphne Daniels. She requests updates providers through [phone]. Likely discharge in a day or 2 Admission and Anticipated Discharge Date Admission Date: November 12, 2023 Subjective 11/13/2023 The patient was seen and examined in emergency room in presence of the family members She was admitted with dizzy spells and generalized weakness with change in mental status Noted to have sepsis secondary to UTI Has been feeling lot better since admission Remains generally weak but does not have any other symptoms 11/14/2023 The patient was seen and examined in telemetry unit She has been feeling much better Heart rate is not yet controlled but denies any symptoms No fever and no chills, no nausea and or vomiting 11/15/2023 Patient was seen and examined in telemetry unit She was noted to have A-fib with RVR yesterday afternoon and also last night Started on intravenous Cardizem since last night No complaints today In the heart rate is controlled 11/16/2023 The patient was seen and examined in telemetry unit She has been stable and denies any symptoms this morning Sitting on a chair out of bed without any distress Remains hemodynamically stable with controlled heart rate at 83 Review of Systems Review of Systems: All systems reviewed and are unremarkable except as noted below Physical Exam Physical Exam: Lying in bed comfortably Constitutional: average body habitus; not ill appearing Eyes: PERRL, conjunctivae normal, anicteric sclerae ENMT: external ear and nose normal, oropharynx normal Neck: trachea midline, no thyromegaly Respiratory: no respiratory distress Auscultation: + diminished lung sounds and + crackles (Minimal crackles at the bases) Cardiovascular: Rate/Rhythm: + tachycardic and + irregularly irregular Heart Sounds: normal S1, normal S2 and + murmur Extremities: no edema Gastrointestinal (Abdomen): Inspection/Auscultation: normal bowel sounds; abdomen not distended Percussion/Palpation: + abdomen tender (Hypogastric tenderness without guarding and no rigidity) and abdomen soft Neurologic: normal touch/pain/proprioception and moves all extremities; no focal motor deficits Psychiatric: A+Ox3, euthymic affect Lymphatic: no cervical or axillary lymphadenopathy Results & Data Results & Data Vital Signs (Past 12 Hours) Vital Signs Temp Pulse Pulse Resp BP Pulse Ox O2 Del Method 11/16/23 11:44 36.6 C 83 18 113/66 94 Room Air 11/16/23 09:09 79 11/16/23 07:52 36.6 C 102 H 18 137/72 90 Room Air 11/16/23 03:00 37.0 C 91 H 16 125/77 94 Room Air Laboratory Results [facility] 11/16/23 09:12 Sodium 134 L Potassium 3.5 Chloride 99 Carbon Dioxide 27 BUN 11 Creatinine 0.60 Glucose 157 H Calcium 8.8 Medications Administered Current Inpatient Medications Acetaminophen (Acetaminophen 325 Mg Tab) 650 mg PO Q6H PRN PRN Reason: pain Stop: 12/12/23 22:41 Apixaban (Apixaban 2.5 Mg Tab) 2.5 mg PO BID [facility] Stop: 12/12/23 22:41 Last Admin: 11/16/23 08:18 Dose: 2.5 mg Atorvastatin Calcium (Atorvastatin 10 Mg Tab) 10 mg PO HS [facility] Stop: 12/12/23 22:41 Last Admin: 11/12/23 23:58 Dose: 10 mg Digoxin (Digoxin 0.125 Mg Tab) 0.125 mg PO DAILY@1600 [facility] Stop: 12/15/23 15:59 Last Admin: 11/15/23 16:13 Dose: 0.125 mg Fluoxetine HCl (Fluoxetine Hcl 20 Mg Cap) 20 mg PO QAM [facility] Stop: 12/13/23 08:59 Last Admin: 11/16/23 08:18 Dose: 20 mg Promethazine HCl 6.25 mg/ (Sodium Chloride) 50.25 mls @ 201 mls/hr IV Q6H PRN PRN Reason: Nausea And Vomiting Stop: 12/12/23 20:35 Daptomycin 225 mg/ Syringe 4.5 mls @ 2.25 mls/min IV Q24H [facility]; Protocol Stop: 11/17/23 16:01 Last Admin: 11/15/23 15:42 Dose: 2.25 mls/min Metoprolol Tartrate (Metoprolol Tartrate 50 Mg Tab) 50 mg PO TID [facility] Stop: 12/15/23 20:59 Last Admin: 11/16/23 08:18 Dose: 50 mg Multivitamins (Multivitamin Tab) 1 tab PO DAILY [facility] Stop: 12/13/23 08:59 Last Admin: 11/16/23 08:18 Dose: Not Given
--- NOTE | 2023-11-16 13:08 | Cardiology Progress Note ---
Date of Service November 16, 2023 Assessment & Plan (1) Acute UTI: (2) Atrial fibrillation with rapid ventricular response: Plan Assessment: 88 year-old female presents to the hospital with 3 day onset of nausea and lightheadedness. Found to have a UTI as well as Atrial fibrillatin with RVR. Plan 1. Acute UTI -Continued management per primary team with IV antibiotics 2. Atrial fibrillation with RVR -Remains asymptomatic -known prior history of A-fib initially diagnosed in 2021 during an acute Covid infection. -No formal cardiology follow up. -Given findings of Echo dated 10/2021, suspect A-fib has been long standing and likely persistent. Severely enlarged left atrium. While cardiac testing has remains sparse since the course of hospitalization all EKG's have shown A-fib. -Currently on Cardizem gtt. Will obtain echocardiogram to assess overall structure and function. -Rate currently controlled at the time of exam. will discuss PO transition with Dr. Medina -patient was previously on metoprolol tartrate 25mg PO BID, would recommend resuming and titrate as needed. -Continue on Eliquis 2.5mg PO BID (reduced dosing due to age and hx of CKD) -Euvolemic on physical exam Case has been discussed with Dr. Medina. Further recommendations regarding plan of care as per his assessment. I spent a total of 30 minutes on the date of service in preparation, delivery, documentation of the care provided to the patient excluding any time spent in the performance of separately billed services. SONYA Aguilar [facility] 11/16/2023 Continues to improve. Will discontinue IV diltiazem as already done Change metoprolol to metoprolol succinate 75 mg twice per day Supplement potassium given use of Continue anticoagulation with Eliquis current dose Admission and Anticipated Discharge Date Admission Date: November 12, 2023 Subjective Patient seen and examined, chart, medications, telemetry reviewed. Atrial fibrillation predominantly controlled with occasional elevated heart rate No acute cardiac complaints. Out of bed to chair this morning Diltiazem drip on overnight discontinued this morning Physical Exam Constitutional: well developed and well nourished; not ill appearing Respiratory: normal respiratory effort, lungs clear to auscultation Cardiovascular: Rate/Rhythm: + irregularly irregular Heart Sounds: normal S1, normal S2 and + murmur (+1/6 systolic) Vessels: no JVD Skin: no rashes, warm and dry Psychiatric: A+Ox3, euthymic affect Results & Data Vital Signs (Past 12 Hours) Vital Signs Temp Pulse Pulse Resp BP Pulse Ox O2 Del Method 11/16/23 11:44 36.6 C 83 18 113/66 94 Room Air 11/16/23 09:09 79 11/16/23 07:52 36.6 C 102 H 18 137/72 90 Room Air 11/16/23 03:00 37.0 C 91 H 16 125/77 94 Room Air Laboratory Results Laboratory Results - last 24 hr 11/16/23 09:12 Sodium 134 L Potassium 3.5 Chloride 99 Carbon Dioxide 27 Anion Gap 8 BUN 11 Creatinine 0.60 Est Cr Clr Drug Dosing 58.4 Est GFR ( Amer) 93.7 Est GFR (Non-Af Amer) 80.8 BUN/Creatinine Ratio 18.3 Glucose 157 H Calcium 8.8 Magnesium 1.7
[2023-11-16] MEDS: POTASSIUM CHLORIDE CRTAB 20 MEQ TABCR PO ONE (15:13)
[2023-11-16] MEDS: METOPROLOL SUCC 25MG EXT REL TAB PO STA (17:31)
[2023-11-16] MEDS: METOPROLOL SUCC 25MG EXT REL TAB PO SCH (20:01)
--- NOTE | 2023-11-17 11:19 | Hospitalist Progress Note ---
Date of Service November 17, 2023 Assessment & Plan (1) Acute UTI: (2) Atrial fibrillation with rapid ventricular response: (3) HTN (hypertension): (4) HLD (hyperlipidemia): (5) Anxiety: (6) GERD (gastroesophageal reflux disease): Plan This is an 88-year-old female with PMH of hypertension, chronic atrial fibrillation on Eliquis, dyslipidemia and other medical problems listed below who presents with lightheadedness and nausea and was found to have acute UTI and atrial fibrillation with RVR. Severe sepsis secondary to Enterococcus UTI Acute metabolic and cephalopathy secondary to sepsis History urge incontinence as per records Urine culture is growing probable Enterococcus Blood cultures -negative Was on cefepime and daptomycin Cefepime has been discontinued and continue daptomycin for now She has been clinically much better Feels even better today without any fever and or chills White count has been normalized Still awaiting further identification of Enterococcus and sensitivity Will continue intravenous daptomycin for now Urine culture developed Enterococcus faecalis and that is resistant to fluoroquinolones Will finish the course of intravenous daptomycin for a total of 5 days No signs and or symptoms of UTI Antibiotic course is finished Rapid A-fib secondary to sepsis Heart rate has been around 100 during examination and improving Metoprolol has been increased to 50 mg twice daily Patient on Eliquis Heart rate remains stable during my dictation and in the morning it was elevated Has been going in and out of A-fib with RVR-required a few doses of intravenous Lopressor on top of increasing dose of oral beta-viri Has been on intravenous Cardizem drip since last night We will get an advised from heavy equipment field mechanic before discharge Cardizem drip has been discontinued since this morning-heart rate remains stable at 83 Continue current dose of beta-viri which may need to be increased to control the heart rate Beta-viri has been increased to 75 mg twice daily Heart rate is noted to be at controlled We will observe in telemetry unit and likely discharge tomorrow Hypertension, slight elevated secondary illness Hyperlipidemia on statin Rx GERD stable on regimen Hyperglycemia rule out DM-hemoglobin A1c has been negative for diabetes at 5.6 DVT prophylaxis. Eliquis DNR as per patient's prior directives as per daughter/POA, Ms. Daphne Daniels. She requests updates providers through [phone]. Likely discharge tomorrow Admission and Anticipated Discharge Date Admission Date: November 12, 2023 Subjective 11/13/2023 The patient was seen and examined in emergency room in presence of the family members She was admitted with dizzy spells and generalized weakness with change in mental status Noted to have sepsis secondary to UTI Has been feeling lot better since admission Remains generally weak but does not have any other symptoms 11/14/2023 The patient was seen and examined in telemetry unit She has been feeling much better Heart rate is not yet controlled but denies any symptoms No fever and no chills, no nausea and or vomiting 11/15/2023 Patient was seen and examined in telemetry unit She was noted to have A-fib with RVR yesterday afternoon and also last night Started on intravenous Cardizem since last night No complaints today In the heart rate is controlled 11/16/2023 The patient was seen and examined in telemetry unit She has been stable and denies any symptoms this morning Sitting on a chair out of bed without any distress Remains hemodynamically stable with controlled heart rate at 83 11/17/2023 The patient was seen and examined in telemetry unit She is out of bed on a chair without any acute distress or symptoms Her heart rate is noted to be 117 this morning without any symptoms Review of Systems Review of Systems: All systems reviewed and are unremarkable except as noted below Physical Exam Physical Exam: Lying in bed comfortably Constitutional: average body habitus; not ill appearing Eyes: PERRL, conjunctivae normal, anicteric sclerae ENMT: external ear and nose normal, oropharynx normal Neck: trachea midline, no thyromegaly Respiratory: no respiratory distress Auscultation: + diminished lung sounds and + crackles (Minimal crackles at the bases) Cardiovascular: Rate/Rhythm: + tachycardic and + irregularly irregular Heart Sounds: normal S1, normal S2 and + murmur Extremities: no edema Gastrointestinal (Abdomen): Inspection/Auscultation: normal bowel sounds; abdomen not distended Percussion/Palpation: + abdomen tender (Hypogastric tenderness without guarding and no rigidity) and abdomen soft Musculoskeletal: No acute arthritis involving any of the joint Neurologic: normal touch/pain/proprioception and moves all extremities; no focal motor deficits Psychiatric: A+Ox3, euthymic affect Lymphatic: no cervical or axillary lymphadenopathy Results & Data Results & Data Vital Signs (Past 12 Hours) Vital Signs Temp Pulse Pulse Resp BP Pulse Ox O2 Del Method 11/17/23 08:10 36.6 C 117 H 18 115/77 97 Room Air 11/17/23 07:32 103 H 11/17/23 03:00 103 H 16 147/81 H 92 Room Air Medications Administered Current Inpatient Medications Acetaminophen (Acetaminophen 325 Mg Tab) 650 mg PO Q6H PRN PRN Reason: pain Stop: 12/12/23 22:41 Apixaban (Apixaban 2.5 Mg Tab) 2.5 mg PO BID [facility] Stop: 12/12/23 22:41 Last Admin: 11/17/23 07:21 Dose: 2.5 mg Atorvastatin Calcium (Atorvastatin 10 Mg Tab) 10 mg PO HS [facility] Stop: 12/12/23 22:41 Last Admin: 11/12/23 23:58 Dose: 10 mg Digoxin (Digoxin 0.125 Mg Tab) 0.125 mg PO DAILY@1600 [facility] Stop: 12/15/23 15:59 Last Admin: 11/16/23 15:13 Dose: 0.125 mg Fluoxetine HCl (Fluoxetine Hcl 20 Mg Cap) 20 mg PO QAM [facility] Stop: 12/13/23 08:59 Last Admin: 11/17/23 07:21 Dose: 20 mg Promethazine HCl 6.25 mg/ (Sodium Chloride) 50.25 mls @ 201 mls/hr IV Q6H PRN PRN Reason: Nausea And Vomiting Stop: 12/12/23 20:35 Daptomycin 225 mg/ Syringe 4.5 mls @ 2.25 mls/min IV Q24H [facility]; Protocol Stop: 11/17/23 16:01 Last Admin: 11/16/23 15:13 Dose: 2.25 mls/min Metoprolol Succinate (Metoprolol Succ 25mg Ext Rel Tab) 75 mg PO BID [facility] Stop: 12/16/23 20:59 Last Admin: 11/17/23 07:19 Dose: 75 mg Multivitamins (Multivitamin Tab) 1 tab PO DAILY [facility] Stop: 12/13/23 08:59 Last Admin: 11/17/23 07:21 Dose: 1 tab
[2023-11-17] MEDS: METOPROLOL SUCC 25MG EXT REL TAB PO ONE (11:47)
--- NOTE | 2023-11-17 14:29 | Cardiology Progress Note ---
Date of Service November 17, 2023 Assessment & Plan (1) Acute UTI: (2) Atrial fibrillation with rapid ventricular response: Plan Assessment: 88 year-old female presents to the hospital with 3 day onset of nausea and lightheadedness. Found to have a UTI as well as Atrial fibrillatin with RVR. Plan 1. Acute UTI -Continued management per primary team with IV antibiotics 2. Atrial fibrillation with RVR -Remains asymptomatic -known prior history of A-fib initially diagnosed in 2021 during an acute Covid infection. -No formal cardiology follow up. -Given findings of Echo dated 10/2021, suspect A-fib has been long standing and likely persistent. Severely enlarged left atrium. While cardiac testing has remains sparse since the course of hospitalization all EKG's have shown A-fib. -Currently on Cardizem gtt. Will obtain echocardiogram to assess overall structure and function. -Rate currently controlled at the time of exam. will discuss PO transition with Dr. Medina -patient was previously on metoprolol tartrate 25mg PO BID, would recommend resuming and titrate as needed. -Continue on Eliquis 2.5mg PO BID (reduced dosing due to age and hx of CKD) -Euvolemic on physical exam 11/16/2023 Impression: Continues to improve. Will discontinue IV diltiazem as already done Change metoprolol to metoprolol succinate 75 mg twice per day Supplement potassium given use of Continue anticoagulation with Eliquis current dose 11/17/2023 Impression: Atrial fibrillation with rapid ventricular rate trending towards better control. Will increase metoprolol succinate to 100 mg twice per day, continue low-dose digoxin with plan discharge on every other day dosing. Continue anticoagulation with Eliquis Admission and Anticipated Discharge Date Admission Date: November 12, 2023 Subjective Patient seen and personally examined, chart, medications, telemetry reviewed. Sitting out of bed in chair. Family present. Concern regarding confusion and mild delirium. Denies any chest pain shortness of breath. Heart rate does increase with activities in room but generally controlled Appetite improved Review of Systems Review of Systems: All systems reviewed & are unremarkable except as noted in Subjective Physical Exam Constitutional: well developed and well nourished; not ill appearing Respiratory: normal respiratory effort, lungs clear to auscultation Cardiovascular: Rate/Rhythm: + irregularly irregular Heart Sounds: normal S1, normal S2 and + murmur (+1/6 systolic) Vessels: no JVD Skin: no rashes, warm and dry Psychiatric: A+Ox3, euthymic affect Results & Data Vital Signs (Past 12 Hours) Vital Signs Temp Pulse Pulse Resp BP Pulse Ox O2 Del Method 11/17/23 11:54 36.6 C 98 H 18 122/73 96 Room Air 11/17/23 08:10 36.6 C 117 H 18 115/77 97 Room Air 11/17/23 07:32 103 H 11/17/23 03:00 103 H 16 147/81 H 92 Room Air
[2023-11-17] MEDS: METOPROLOL SUCC 50MG EXT REL TAB PO SCH (21:27)
[2023-11-18 06:51] LABS: BUN Creatinine Ratio 23.5 (10-20); Calcium 9.1 mg/dl (8.6-10.3); Creatinine Clr Calc Pharmacy 68.1 ml/min; Est GFR (African American) 98.8 ml/min; Est GFR (Non-African American) 85.3 ml/min; Magnesium 1.7 mg/dl (1.7-2.4); Potassium 4.1 mmol/L (3.5-5.1)
--- NOTE | 2023-11-18 16:08 | Cardiology Progress Note ---
Date of Service November 18, 2023 Assessment & Plan (1) Acute UTI: (2) Atrial fibrillation with rapid ventricular response: Plan Assessment: 88 year-old female presents to the hospital with 3 day onset of nausea and lightheadedness. Found to have a UTI as well as Atrial fibrillatin with RVR. Plan 1. Acute UTI -Continued management per primary team with IV antibiotics 2. Atrial fibrillation with RVR -Remains asymptomatic -known prior history of A-fib initially diagnosed in 2021 during an acute Covid infection. -No formal cardiology follow up. -Given findings of Echo dated 10/2021, suspect A-fib has been long standing and likely persistent. Severely enlarged left atrium. While cardiac testing has remains sparse since the course of hospitalization all EKG's have shown A-fib. -Currently on Cardizem gtt. Will obtain echocardiogram to assess overall structure and function. -Rate currently controlled at the time of exam. will discuss PO transition with Dr. Medina -patient was previously on metoprolol tartrate 25mg PO BID, would recommend resuming and titrate as needed. -Continue on Eliquis 2.5mg PO BID (reduced dosing due to age and hx of CKD) -Euvolemic on physical exam 11/16/2023 Impression: Continues to improve. Will discontinue IV diltiazem as already done Change metoprolol to metoprolol succinate 75 mg twice per day Supplement potassium given use of Continue anticoagulation with Eliquis current dose 11/17/2023 Impression: Atrial fibrillation with rapid ventricular rate trending towards better control. Will increase metoprolol succinate to 100 mg twice per day, continue low-dose digoxin with plan discharge on every other day dosing. Continue anticoagulation with Eliquis 11/18/23: Afib rates continue to trend downwards. Improve rates currently 80-100 bmp. Continue metoprolol 100 mg BID and digoxin 0.125 reducing to every other day. Continue low dose Eliquis 2.5 mg BID. Cardiology will sign off. No further testing or intervention needed. Please contact professional sports scout cardiology provider with additional questions or concerns. Case discussed with Dr. Lowry I spent a total of 30 minutes on the date of service in preparation, delivery, and documentation of the care provided to this patient, excluding any time spent in the performance of separately billed services. Radha Paulino PA-C Department of Cardiology, [facility] This chart was completed in part utilizing Speech Voice Recognition Software. Grammatical errors, random word insertions, pronoun errors, and incomplete sentences are an occasional consequence of this system due to software limitations, ambient noise, and hardware issues. Any formal questions or concerns about the content, text, or information contained within the body of this dictation should be directly addressed to the provider for clarification. Admission and Anticipated Discharge Date Admission Date: November 12, 2023 Supervising Physician Co-Signing Physician Notes I have reviewed the advance practitioner's documentation, and I agree with, and take responsibility for the plan of care. Patient seen and examined at the bedside. Denies chest pain or shortness of breath. States "I am feeling better today". Telemetry feels atrial fibrillation heart rate approximately 100 bpm. Denies palpitations. PE: Borderline tachycardia. General: NAD, awake and alert. Heart: Irregular rhythm. Normal S1-S2. Lungs: Diminished breath sounds at the bases bilateral. Extremities: No edema. A/P: Fair rate control noted. Continue rate control strategy with metoprolol, and digoxin. Chronic anticoagulation with reduced dose Eliquis as ordered. No further inpatient cardiac testing or intervention recommended at this time. Cardiology will sign off. Please call with additional concerns/questions. Subjective Patient resting in bed comfortably. Daughter at bedside. She reports feeling "great". Denies acute cardiac concerns. Tolerating medications. Unaware of palpitations or tachypalpitations. no chest pain or SOB. Review of Systems Review of Systems: All systems reviewed & are unremarkable except as noted in HPI & below Physical Exam Constitutional: well developed and well nourished; not ill appearing Respiratory: normal respiratory effort, lungs clear to auscultation Cardiovascular: Rate/Rhythm: + irregularly irregular Heart Sounds: normal S1, normal S2 and + murmur (+1/6 systolic) Vessels: no JVD Skin: no rashes, warm and dry Psychiatric: A+Ox3, euthymic affect Results & Data Vital Signs (Past 12 Hours) Vital Signs Temp Pulse Pulse Resp BP BP Pulse Ox 11/18/23 15:28 36.8 C 107 H 18 138/77 93 11/18/23 15:25 101 H 11/18/23 15:04 90 11/18/23 11:48 37.0 C 82 19 137/70 95 11/18/23 07:28 36.8 C 87 19 154/81 H 93 O2 Del Method 11/18/23 15:28 Room Air 11/18/23 15:25 11/18/23 15:04 11/18/23 11:48 Room Air 11/18/23 07:28 Room Air Laboratory Results Comprehensive Metabolic Panel 11/18/23 Range/Units 05:48 Sodium 137 (136-145) mmol/L Potassium 4.1 (3.5-5.1) mmol/L Chloride 101 (98-107) mmol/L Carbon Dioxide 27 (21-32) mmol/L BUN 12 (6-23) mg/dl Creatinine 0.51 L (0.6-1.2) mg/dl Glucose 111 H (70-99(Fasting)) mg/dl Calcium 9.1 (8.6-10.3) mg/dl Intake and Output 11/18/23 11/18/23 11/18/23 06:59 14:59 22:59 Intake Total 120 / 948 440 / 440 Balance 120 / 948 440 / 440 Intake: Oral 120 / 948 440 / 440 Other: Weight 65.6 kg Weight Measurement Method Built in [facility] Diagnostic Findings Telemetry reviewed: Atrial fibrillation with improving HR's ranging 80-100 bmp Medications Administered Current Inpatient Medications Acetaminophen (Acetaminophen 325 Mg Tab) 650 mg PO Q6H PRN PRN Reason: pain Stop: 12/12/23 22:41 Apixaban (Apixaban 2.5 Mg Tab) 2.5 mg PO BID [facility] Stop: 12/12/23 22:41 Last Admin: 11/18/23 07:44 Dose: 2.5 mg Atorvastatin Calcium (Atorvastatin 10 Mg Tab) 10 mg PO HS [facility] Stop: 12/12/23 22:41 Last Admin: 11/12/23 23:58 Dose: 10 mg Digoxin (Digoxin 0.125 Mg Tab) 0.125 mg PO DAILY@1600 [facility] Stop: 12/15/23 15:59 Last Admin: 11/18/23 15:25 Dose: 0.125 mg Fluoxetine HCl (Fluoxetine Hcl 20 Mg Cap) 20 mg PO QAM [facility] Stop: 12/13/23 08:59 Last Admin: 11/18/23 07:44 Dose: 20 mg Promethazine HCl 6.25 mg/ (Sodium Chloride) 50.25 mls @ 201 mls/hr IV Q6H PRN PRN Reason: Nausea And Vomiting Stop: 12/12/23 20:35 Metoprolol Succinate (Metoprolol Succ 50mg Ext Rel Tab) 100 mg PO BID [facility] Stop: 12/17/23 20:59 Last Admin: 11/18/23 07:44 Dose: 100 mg Multivitamins (Multivitamin Tab) 1 tab PO DAILY [facility] Stop: 12/13/23 08:59 Last Admin: 11/18/23 07:44 Dose: 1 tab
--- NOTE | 2023-11-19 12:04 | Hospitalist Progress Note ---
Date of Service November 18, 2023 Delayed progress note from 11/18/2023 Assessment & Plan (1) Acute UTI: (2) Atrial fibrillation with rapid ventricular response: (3) HTN (hypertension): (4) HLD (hyperlipidemia): (5) Anxiety: (6) GERD (gastroesophageal reflux disease): Plan This is an 88-year-old female with PMH of hypertension, chronic atrial fibrillation on Eliquis, dyslipidemia and other medical problems listed below who presents with lightheadedness and nausea and was found to have acute UTI and atrial fibrillation with RVR. Severe sepsis secondary to Enterococcus UTI Acute metabolic and cephalopathy secondary to sepsis History urge incontinence as per records Urine culture is growing probable Enterococcus Blood cultures -negative Was on cefepime and daptomycin Cefepime has been discontinued and continue daptomycin for now She has been clinically much better Feels even better today without any fever and or chills White count has been normalized Still awaiting further identification of Enterococcus and sensitivity Will continue intravenous daptomycin for now Urine culture developed Enterococcus faecalis and that is resistant to fluoroquinolones Will finish the course of intravenous daptomycin for a total of 5 days No signs and or symptoms of UTI Antibiotic course is finished Remains asymptomatic and has been drinking enough fluid Rapid A-fib secondary to sepsis Heart rate has been around 100 during examination and improving Metoprolol has been increased to 50 mg twice daily Patient on Eliquis Heart rate remains stable during my dictation and in the morning it was elevated Has been going in and out of A-fib with RVR-required a few doses of intravenous Lopressor on top of increasing dose of oral beta-viri Has been on intravenous Cardizem drip since last night We will get an advised from intermediate designer before discharge Cardizem drip has been discontinued since this morning-heart rate remains stable at 83 Continue current dose of beta-viri which may need to be increased to control the heart rate Beta-viri has been increased to 75 mg twice daily Beta-viri dose has been increased to 100 mg twice daily and a small dose of digoxin has been added Heart rate is not yet controlled Hypertension, slight elevated secondary illness Hyperlipidemia on statin Rx GERD stable on regimen Hyperglycemia rule out DM-hemoglobin A1c has been negative for diabetes at 5.6 DVT prophylaxis. Eliquis DNR as per patient's prior directives as per daughter/POA, Ms. Daphne Daniels. She requests updates providers through [phone]. Likely discharge when she is accepted to a facility to continue with PT Admission and Anticipated Discharge Date Admission Date: November 12, 2023 Subjective 11/13/2023 The patient was seen and examined in emergency room in presence of the family members She was admitted with dizzy spells and generalized weakness with change in mental status Noted to have sepsis secondary to UTI Has been feeling lot better since admission Remains generally weak but does not have any other symptoms 11/14/2023 The patient was seen and examined in telemetry unit She has been feeling much better Heart rate is not yet controlled but denies any symptoms No fever and no chills, no nausea and or vomiting 11/15/2023 Patient was seen and examined in telemetry unit She was noted to have A-fib with RVR yesterday afternoon and also last night Started on intravenous Cardizem since last night No complaints today In the heart rate is controlled 11/16/2023 The patient was seen and examined in telemetry unit She has been stable and denies any symptoms this morning Sitting on a chair out of bed without any distress Remains hemodynamically stable with controlled heart rate at 83 11/17/2023 The patient was seen and examined in telemetry unit She is out of bed on a chair without any acute distress or symptoms Her heart rate is noted to be 117 this morning without any symptoms 11/18/2023 Patient was seen and examined in telemetry Has been stable and the heart rate is not yet controlled Denies any symptoms Review of Systems Review of Systems: All systems reviewed and are unremarkable except as noted below Physical Exam Physical Exam: Lying in bed comfortably Constitutional: average body habitus; not ill appearing Eyes: PERRL, conjunctivae normal, anicteric sclerae ENMT: external ear and nose normal, oropharynx normal Neck: trachea midline, no thyromegaly Respiratory: no respiratory distress Auscultation: + diminished lung sounds and + crackles (Minimal crackles at the bases) Cardiovascular: Rate/Rhythm: + tachycardic and + irregularly irregular Heart Sounds: normal S1, normal S2 and + murmur Extremities: no edema Gastrointestinal (Abdomen): Inspection/Auscultation: normal bowel sounds; abdomen not distended Percussion/Palpation: + abdomen tender (Hypogastric tenderness without guarding and no rigidity) and abdomen soft Musculoskeletal: No acute arthritis involving any of the joint Neurologic: normal touch/pain/proprioception and moves all extremities; no focal motor deficits Psychiatric: A+Ox3, euthymic affect Lymphatic: no cervical or axillary lymphadenopathy Results & Data Results & Data Vital Signs (Past 12 Hours) Vital Signs Temp Pulse Pulse Resp BP BP Pulse Ox 11/19/23 11:14 36.6 C 86 19 133/73 91 11/19/23 07:58 36.5 C 91 H 19 131/79 92 11/19/23 07:17 79 11/19/23 03:21 36.6 C 93 H 20 152/83 H 93 O2 Del Method O2 Flow Rate 11/19/23 11:14 Room Air 92 11/19/23 07:58 Room Air 11/19/23 07:17 11/19/23 03:21 Room Air
--- NOTE | 2023-11-19 12:07 | Hospitalist Progress Note ---
Date of Service November 19, 2023 Assessment & Plan (1) Acute UTI: (2) Atrial fibrillation with rapid ventricular response: (3) HTN (hypertension): (4) HLD (hyperlipidemia): (5) Anxiety: (6) GERD (gastroesophageal reflux disease): Plan This is an 88-year-old female with PMH of hypertension, chronic atrial fibrillation on Eliquis, dyslipidemia and other medical problems listed below who presents with lightheadedness and nausea and was found to have acute UTI and atrial fibrillation with RVR. Severe sepsis secondary to Enterococcus UTI Acute metabolic and cephalopathy secondary to sepsis History urge incontinence as per records Urine culture is growing probable Enterococcus Blood cultures -negative Was on cefepime and daptomycin Cefepime has been discontinued and continue daptomycin for now She has been clinically much better Feels even better today without any fever and or chills White count has been normalized Still awaiting further identification of Enterococcus and sensitivity Will continue intravenous daptomycin for now Urine culture developed Enterococcus faecalis and that is resistant to fluoroquinolones Will finish the course of intravenous daptomycin for a total of 5 days No signs and or symptoms of UTI Antibiotic course is finished Remains asymptomatic and has been drinking enough fluid Rapid A-fib secondary to sepsis Heart rate has been around 100 during examination and improving Metoprolol has been increased to 50 mg twice daily Patient on Eliquis Heart rate remains stable during my dictation and in the morning it was elevated Has been going in and out of A-fib with RVR-required a few doses of intravenous Lopressor on top of increasing dose of oral beta-viri Has been on intravenous Cardizem drip since last night We will get an advised from job site superintendent before discharge Cardizem drip has been discontinued since this morning-heart rate remains stable at 83 Continue current dose of beta-viri which may need to be increased to control the heart rate Beta-viri has been increased to 75 mg twice daily Beta-viri dose has been increased to 100 mg twice daily and a small dose of digoxin has been added Heart rate is not yet controlled Heart rate is controlled and without any symptoms of palpitation or shortness of breath She is medically stable to be discharged Hypertension, slight elevated secondary illness Hyperlipidemia on statin Rx GERD stable on regimen Hyperglycemia rule out DM-hemoglobin A1c has been negative for diabetes at 5.6 Blood pressure remains controlled DVT prophylaxis. Eliquis DNR as per patient's prior directives as per daughter/POA, MsChris Daphne Jeremiah. She requests updates providers through [phone]. Likely discharge when she is accepted to a facility to continue with PT Awaiting placement Admission and Anticipated Discharge Date Admission Date: November 12, 2023 Subjective 11/13/2023 The patient was seen and examined in emergency room in presence of the family members She was admitted with dizzy spells and generalized weakness with change in mental status Noted to have sepsis secondary to UTI Has been feeling lot better since admission Remains generally weak but does not have any other symptoms 11/14/2023 The patient was seen and examined in telemetry unit She has been feeling much better Heart rate is not yet controlled but denies any symptoms No fever and no chills, no nausea and or vomiting 11/15/2023 Patient was seen and examined in telemetry unit She was noted to have A-fib with RVR yesterday afternoon and also last night Started on intravenous Cardizem since last night No complaints today In the heart rate is controlled 11/16/2023 The patient was seen and examined in telemetry unit She has been stable and denies any symptoms this morning Sitting on a chair out of bed without any distress Remains hemodynamically stable with controlled heart rate at 83 11/17/2023 The patient was seen and examined in telemetry unit She is out of bed on a chair without any acute distress or symptoms Her heart rate is noted to be 117 this morning without any symptoms 11/18/2023 Patient was seen and examined in telemetry Has been stable and the heart rate is not yet controlled Denies any symptoms 11/19/2023 The patient was seen and examined in telemetry unit She is out of bed on a chair without any acute distress She has been waiting for transfer to facility where she can have physical therapy Denies any other symptoms Review of Systems Review of Systems: All systems reviewed and are unremarkable except as noted below Physical Exam Physical Exam: Lying in bed comfortably Constitutional: average body habitus; not ill appearing Eyes: PERRL, conjunctivae normal, anicteric sclerae ENMT: external ear and nose normal, oropharynx normal Neck: trachea midline, no thyromegaly Respiratory: no respiratory distress Auscultation: + diminished lung sounds and + crackles (Minimal crackles at the bases) Cardiovascular: Rate/Rhythm: + tachycardic and + irregularly irregular Heart Sounds: normal S1, normal S2 and + murmur Extremities: no edema Gastrointestinal (Abdomen): Inspection/Auscultation: normal bowel sounds; abdomen not distended Percussion/Palpation: + abdomen tender (Hypogastric tenderness without guarding and no rigidity) and abdomen soft Musculoskeletal: No acute arthritis involving any of the joints Neurologic: normal touch/pain/proprioception and moves all extremities; no focal motor deficits Psychiatric: A+Ox3, euthymic affect Lymphatic: no cervical or axillary lymphadenopathy Results & Data Results & Data Vital Signs (Past 12 Hours) Vital Signs Temp Pulse Pulse Resp BP BP Pulse Ox 11/19/23 11:14 36.6 C 86 19 133/73 91 11/19/23 07:58 36.5 C 91 H 19 131/79 92 11/19/23 07:17 79 11/19/23 03:21 36.6 C 93 H 20 152/83 H 93 O2 Del Method O2 Flow Rate 11/19/23 11:14 Room Air 92 11/19/23 07:58 Room Air 11/19/23 07:17 11/19/23 03:21 Room Air Medications Administered Current Inpatient Medications Acetaminophen (Acetaminophen 325 Mg Tab) 650 mg PO Q6H PRN PRN Reason: pain Stop: 12/12/23 22:41 Apixaban (Apixaban 2.5 Mg Tab) 2.5 mg PO BID [facility] Stop: 12/12/23 22:41 Last Admin: 11/19/23 08:21 Dose: 2.5 mg Atorvastatin Calcium (Atorvastatin 10 Mg Tab) 10 mg PO HS [facility] Stop: 12/12/23 22:41 Last Admin: 11/12/23 23:58 Dose: 10 mg Digoxin (Digoxin 0.125 Mg Tab) 0.125 mg PO Q2D@1600 [facility] Stop: 12/20/23 15:59 Fluoxetine HCl (Fluoxetine Hcl 20 Mg Cap) 20 mg PO QAM [facility] Stop: 12/13/23 08:59 Last Admin: 11/19/23 08:21 Dose: 20 mg Promethazine HCl 6.25 mg/ (Sodium Chloride) 50.25 mls @ 201 mls/hr IV Q6H PRN PRN Reason: Nausea And Vomiting Stop: 12/12/23 20:35 Metoprolol Succinate (Metoprolol Succ 50mg Ext Rel Tab) 100 mg PO BID [facility] Stop: 12/17/23 20:59 Last Admin: 11/19/23 08:21 Dose: 100 mg Multivitamins (Multivitamin Tab) 1 tab PO DAILY [facility] Stop: 12/13/23 08:59 Last Admin: 11/19/23 08:21 Dose: 1 tab
[2023-11-20 06:54] LABS: Basophils # (auto) 0.06 K/uL (0.00-0.20); Basophils % (auto) 0.6 %; Eosinophils # (auto) 0.02 K/uL (0.00-0.50); Eosinophils % (auto) 0.2 %; Hemoglobin 12.8 g/dl (12.0-16.0); Immature Granulocytes # (auto) 0.16 K/uL (0.01-0.20); Immature Granulocytes % (auto) 1.6 %; Lymphocytes # (auto) 1.16 K/uL (1.20-3.40); Lymphocytes % (auto) 11.4 %; Mean Corpuscular Hemoglobin 31.1 pg (25.0-34.0); Mean Corpuscular Hgb Conc 33.7 g/dL (32.0-36.0); Mean Corpuscular Volume 92.5 fL (80.0-100.0); Mean Platelet Volume 10.3 fL (9.4-12.4); Monocytes # (auto) 1.38 K/uL (0.11-0.59); Monocytes % (auto) 13.6 %; Neutrophils # (auto) 7.36 K/uL (1.40-6.50); Neutrophils % (auto) 72.6 %; Platelet Count 306 K/uL (130-400); RDW Coefficient of Variation 12.3 % (11.5-14.5); RDW Standard Deviation 41.4 fL (36.4-46.3); Red Blood Count 4.11 M/uL (4.20-5.40); White Blood Count 10.14 K/ul (4.8-10.8)
[2023-11-20 07:09] LABS: BUN Creatinine Ratio 27.9 (10-20); Creatinine Clr Calc Pharmacy 56.5 ml/min; Est GFR (African American) 93.2 ml/min; Est GFR (Non-African American) 80.4 ml/min
--- NOTE | 2023-11-20 11:00 | Electrocardiogram Report ---
Test Reason : Blood Pressure : / mmHG Vent. Rate : 108 BPM Atrial Rate : 133 BPM P-R Int : 000 ms QRS Dur : 068 ms QT Int : 210 ms P-R-T Axes : 000 -10 223 degrees QTc Int : 281 ms Atrial fibrillation with rapid ventricular response Poor R wave progression, consider anterior ND vs. lead placement vs. LVH Diffuse Minor Nonspecific T wave abnormality Abnormal ECG When compared with ECG of 12-NOV-2023 17:55, No significant change Confirmed by Ed Diop ([id number]) on 11/20/2023 11:00:35 AM Referred By: REFERRED SELF Confirmed By:Ed Diop
[2023-11-20] MEDS: LIDOCAINE 5% 1 PATCH TD STA (15:18)
[2023-11-20] MEDS: DIGOXIN 0.125 MG TAB PO SCH (16:50)
--- NOTE | 2023-11-20 18:29 | Hospitalist Progress Note ---
Date of Service November 20, 2023 Assessment & Plan Admission and Anticipated Discharge Date Admission Date: November 12, 2023 Results & Data Results & Data Vital Signs (Past 12 Hours) Vital Signs Temp Pulse Pulse Resp BP Pulse Ox O2 Del Method 11/20/23 16:55 107 H 11/20/23 16:50 108 H 11/20/23 15:54 37.2 C 106 H 17 108/75 95 Room Air 11/20/23 13:36 102 H 11/20/23 13:07 96 11/20/23 11:46 36.6 C 88 18 126/80 98 Room Air 11/20/23 08:00 Room Air 11/20/23 07:50 36.6 C 79 16 127/76 94 Room Air
[2023-11-21] MEDS: LIDOCAINE 5% 1 PATCH TD SCH (08:29)
[2023-11-21 08:39] LABS: BUN Creatinine Ratio 29.9 (10-20); Calcium 9.2 mg/dl (8.6-10.3); Creatinine Clr Calc Pharmacy 51.5 ml/min; Est GFR (African American) 90.3 ml/min; Est GFR (Non-African American) 77.9 ml/min; Potassium 4.1 mmol/L (3.5-5.1)
--- NOTE | 2023-11-21 11:16 | Hospitalist Progress Note ---
Date of Service November 21, 2023 Assessment & Plan (1) UTI (urinary tract infection): Plan: Per previous hospitalist notes with addendum: This is an 88-year-old female with PMH of hypertension, chronic atrial fibrillation on Eliquis, dyslipidemia and other medical problems listed below who presents with lightheadedness and nausea and was found to have acute UTI and atrial fibrillation with RVR. Severe sepsis secondary to Enterococcus UTI Acute metabolic and cephalopathy secondary to sepsis History urge incontinence as per records Urine culture: Enterococcus faecalis, resistant to fluoroquinolones Blood cultures -negative Initially was given cefepime and daptomycin Cefepime has been discontinued and daptomycin continued Patient clinically improved Completed total course of IV daptomycin Rapid A-fib secondary to sepsis Heart rate has been around 100 during examination and improving Metoprolol has been increased to 50 mg twice daily Patient on Eliquis Required Cardizem drip Cardiology service consulted Metoprolol XL uptitrated to 100 mg p.o. twice daily Digoxin 0.125 mg every 2 days added Heart rate controlled since Hypertension, Stable overall Hyperlipidemia on statin Rx GERD stable on regimen DVT prophylaxis. Eliquis DNR as per patient's prior directives as per daughter/POA, Ms. Daphne Daniels. Disposition Patient to be discharged to [facility] today Follow-up with PCP in 1 week Follow-up with cardiology service in 2 to 3 weeks Admission and Anticipated Discharge Date Admission Date: November 12, 2023 Subjective ff up for sepsis secondary to UTI, etc. Seen sitting up in bedside chair, comfortable, in good spirits States she feels fine overall Left upper chest wall pain has resolved no chest pain, dyspnea, palpitations, dizziness No abdominal pain, nausea or vomiting, fevers or chills Ambulating in the room with no problems States she is ready for discharge today Review of Systems Review of Systems: all noted and negative except for above Physical Exam Physical Exam: General- oriented x 3, not in distress, speaks in sentences with no effort or accessory muscle use Eyes- anicteric Neck- no JVD Lungs- clear breath sounds bilaterally, no rales/wheezes Heart- normal rate, irregularly irregular rhythm; no murmurs Abdomen- normal bowel sounds, nondistended, soft, nontender Extremities- no pretibial edema, no calf tenderness Neuro- alert, oriented x 3; no gross focal neurologic deficits Skin- warm & dry Results & Data Results & Data Vital Signs (Past 12 Hours) Vital Signs Temp Pulse Resp BP Pulse Ox O2 Del Method 11/21/23 08:10 36.6 C 126 H 18 112/60 95 Room Air 11/21/23 03:20 36.5 C 103 H 18 149/72 H 93 Room Air all noted and reviewed including below
--- NOTE | 2023-11-21 11:19 | Discharge Summary ---
Discharge Summary Date of Service November 21, 2023 Notes For Next Care Provider Medication Changes From Visit Metoprolol XL 100 mg p.o. twice daily Digoxin 0.125 mg p.o. every 2 days Lidoderm patch 5% 1 patch daily over the left upper chest wall/upper breast Admission HPI Per Admitting Provider This is an 88-year-old female with PMH of hypertension, chronic atrial fibrillation on Eliquis, anxiety, dyslipidemia and other medical problems listed below who presents with lightheadedness and nausea x 3 days. Patient lives independently in an apartment with family close by and daughter checks in on her every day. Ambulates with a walker at baseline and is A&O x 3. Patient notes that she was more weak on Saturday with nausea but no vomiting. No falls. Daughter has noted progressive confusion over the past few days which is very unusual for the patient. She even got dressed last evening before bed because she was confused about the time of day. Patient also endorses increased urinary frequency but no dysuria or hematuria. Has had 2 urinary tract infections before in her lifetime and they have presented similarly with confusion and weakness. Denies any fever, chills, headache, chest pain, shortness of breath, vomiting, abdominal pain, diarrhea or constipation. Has history of chronic A- fib that is asymptomatic for her. Admission Exam Per Admitting Provider General Appearance: WD/WN, vitals as above, NAD, sitting up in bed, pleasant, conversing easily Head: normocephalic, atraumatic Eyes: normal inspection, PERRL, conjunctivae normal, anicteric sclerae ENT: external ear and nose normal, oropharynx normal Neck: normal visual inspection, trachea midline, no thyromegaly Respiratory: normal respiratory effort, lungs clear to auscultation, no wheeze, rales, rhonchi. No accessory muscle use Cardiovascular: irregular rate & rhythm, no murmur appreciated, normal peripheral pulses, no BLE edema. Vessels: no JVD Chest: normal inspection of chest Abdomen/GI: normal bowel sounds, soft, nontender, no hepatosplenomegaly Extremities/Musculoskeletal: no cyanosis or clubbing, extremities motor strength 5/5 Neurologic: PERRL, EOMI, accommodation nl, no face palsy, no dysarthria, CN's II-XI intact bilaterally and moves all extremities Psychiatric: A+Ox3, euthymic affect Skin: no rashes, normal color, warm/dry Principal Dx & Hospital Course #1 = Principal Diagnosis (1) UTI (urinary tract infection): Per previous hospitalist notes with addendum: This is an 88-year-old female with PMH of hypertension, chronic atrial fibrillation on Eliquis, dyslipidemia and other medical problems listed below who presents with lightheadedness and nausea and was found to have acute UTI and atrial fibrillation with RVR. SEVERE SEPSIS SECONDARY TO ENTEROCOCCUS UTI Acute metabolic and cephalopathy secondary to sepsis History urge incontinence as per records Urine culture: Enterococcus faecalis, resistant to fluoroquinolones Blood cultures -negative Initially was given cefepime and daptomycin Cefepime has been discontinued and daptomycin continued Patient clinically improved Completed total course of IV daptomycin RAPID A-FIB SECONDARY TO SEPSIS Heart rate has been around 100 during examination and improving Metoprolol has been increased to 50 mg twice daily Patient on Eliquis Required Cardizem drip Cardiology service consulted Metoprolol XL uptitrated to 100 mg p.o. twice daily Digoxin 0.125 mg every 2 days added Heart rate controlled since HYPERTENSION Stable overall HYPERLIPIDEMIA on statin Rx GERD stable on regimen DVT prophylaxis. Eliquis DNR as per patient's prior directives as per daughter/POA, Ms. Daphne Beltranhtel. Disposition Patient to be discharged to [facility] today Follow-up with PCP in 1 week Follow-up with cardiology service in 2 to 3 weeks Discharge Exam General- oriented x 3, not in distress, speaks in sentences with no effort or accessory muscle use Eyes- anicteric Neck- no JVD Lungs- clear breath sounds bilaterally, no rales/wheezes Heart- normal rate, irregularly irregular rhythm; no murmurs Abdomen- normal bowel sounds, nondistended, soft, nontender Extremities- no pretibial edema, no calf tenderness Neuro- alert, oriented x 3; no gross focal neurologic deficits Skin- warm & dry Updated Medication List Medication Instructions Recorded Confirmed Type atorvastatin 10 mg tablet 10 mg PO HS 04/19/20 11/12/23 History fluoxetine 20 mg capsule 20 mg PO QAM 04/19/20 11/12/23 History acetaminophen 325 mg tablet 650 mg (2 x 325 mg) PO Q6H PRN 04/22/20 11/12/23 Rx pain #50 tabs apixaban 2.5 mg tablet (Eliquis) 2.5 mg PO BID 11/21/22 11/12/23 History multivitamin 1 tab PO DAILY 11/21/22 11/12/23 History metoprolol tartrate 25 mg tablet 25 mg PO BID 11/12/23 11/12/23 History Hospital Stay Data Consultations 11/12/23 19:11 ED Decision to Admit Stat 11/15/23 10:31 Consult Cardiology Routine Diagnostic Imagining Performed Laboratory Results WBC 10.14 K/ul (4.8-10.8) 11/20/23 05:48 RBC 4.11 M/uL (4.20-5.40) L 11/20/23 05:48 Hgb 12.8 g/dl (12.0-16.0) 11/20/23 05:48 Hct 38.0 % (37.0-47.0) 11/20/23 05:48 MCV 92.5 fL (80.0-100.0) 11/20/23 05:48 MCH 31.1 pg (25.0-34.0) 11/20/23 05:48 MCHC 33.7 g/dL (32.0-36.0) 11/20/23 05:48 RDW Std Deviation 41.4 fL (36.4-46.3) 11/20/23 05:48 RDW Coeff of [place] 12.3 % (11.5-14.5) 11/20/23 05:48 Plt Count 306 K/uL (130-400) 11/20/23 05:48 MPV 10.3 fL (9.4-12.4) 11/20/23 05:48 Immature Gran % (Auto) 1.6 % 11/20/23 05:48 Neut % (Auto) 72.6 % 11/20/23 05:48 Lymph % (Auto) 11.4 % 11/20/23 05:48 [place] % (Auto) 13.6 % 11/20/23 05:48 Eos % (Auto) 0.2 % 11/20/23 05:48 Baso % (Auto) 0.6 % 11/20/23 05:48 Neut # (Auto) 7.36 K/uL (1.40-6.50) H 11/20/23 05:48 Lymph # (Auto) 1.16 K/uL (1.20-3.40) L 11/20/23 05:48 [place] # (Auto) 1.38 K/uL (0.11-0.59) H 11/20/23 05:48 Eos # (Auto) 0.02 K/uL (0.00-0.50) 11/20/23 05:48 Baso # (Auto) 0.06 K/uL (0.00-0.20) 11/20/23 05:48 Immature Gran # (Auto) 0.16 K/uL (0.01-0.20) 11/20/23 05:48 PT 12.9 Seconds (9.0-12.0) H 11/12/23 17:58 INR 1.2 (0.9-1.1) H 11/12/23 17:58 Sodium 138 mmol/L (136-145) 11/21/23 08:05 Potassium 4.1 mmol/L (3.5-5.1) 11/21/23 08:05 Chloride 102 mmol/L (98-107) 11/21/23 08:05 Carbon Dioxide 28 mmol/L (21-32) 11/21/23 08:05 Anion Gap 8 (3-11) 11/21/23 08:05 BUN 20 mg/dl (6-23) 11/21/23 08:05 Creatinine 0.67 mg/dl (0.6-1.2) 11/21/23 08:05 Est Cr Clr Drug Dosing 51.5 ml/min 11/21/23 08:05 Est GFR ( Amer) 90.3 ml/min 11/21/23 08:05 Est GFR (Non-Af Amer) 77.9 ml/min 11/21/23 08:05 BUN/Creatinine Ratio 29.9 (10-20) H 11/21/23 08:05 Glucose 143 mg/dl (70-99(Fasting)) H 11/21/23 08:05 Estimat Average Glucose 114 mg/dl 11/12/23 17:58 Hemoglobin A1c 5.6 % (4.5-5.6) 11/12/23 17:58 Lactate 1.2 mmol/L (0.4-2.0) 11/12/23 17:58 Calcium 9.2 mg/dl (8.6-10.3) 11/21/23 08:05 Phosphorus 2.6 mg/dl (2.5-4.9) 11/14/23 05:49 Magnesium 1.7 mg/dl (1.7-2.4) 11/18/23 05:48 Total Bilirubin 1.6 mg/dl (0.2-1.0) H 11/14/23 05:49 AST 54 U/L (13-39) H 11/14/23 05:49 ALT 31 U/L (7-52) 11/14/23 05:49 Alkaline Phosphatase 89 U/L (34-104) 11/14/23 05:49 Total Creatine Kinase 123 U/L (26-192) 11/12/23 17:58 Troponin I High Sens 11.0 pg/ml (0-14) 11/12/23 17:58 Total Protein 6.6 gm/dl (6.0-8.3) 11/14/23 05:49 Albumin 3.4 gm/dl (3.4-5.0) 11/14/23 05:49 Globulin 3.2 gm/dl (2.5-4.0) 11/14/23 05:49 Albumin/Globulin Ratio 1.1 (0.9-2) 11/14/23 05:49 TSH 1.208 uIu/ml (0.300-4.500) 11/12/23 17:58 Urine Color [place] 11/12/23 18:11 Urine Appearance Turbid (Clear) A 11/12/23 18:11 Urine pH 5.5 (4.5-7.5) 11/12/23 18:11 Ur Specific [place] 1.019 (1.000-1.030) 11/12/23 18:11 Urine Protein 2+ (Negative) H 11/12/23 18:11 Urine Glucose (UA) Negative (Negative) 11/12/23 18:11 Urine Ketones 1+ (Negative) H 11/12/23 18:11 Urine Blood 2+ (Negative) H 11/12/23 18:11 Urine Nitrite Positive (Negative) A 11/12/23 18:11 Urine Bilirubin Negative (Negative) 11/12/23 18:11 Urine Urobilinogen Negative (Negative) 11/12/23 18:11 Ur Leukocyte Esterase 2+ (Negative) H 11/12/23 18:11 Urine WBC (Auto) >30 /hpf (0-5) H 11/12/23 18:11 Urine RBC (Auto) 0-4 /hpf (0-4) 11/12/23 18:11 U Hyaline Cast (Auto) 0 /lpf (0-5) 11/12/23 18:11 U Epithel Cells (Auto) 0-5 /lpf (0-5) 11/12/23 18:11 Urine Bacteria (Auto) 4+ (Negative) H 11/12/23 18:11 Adenovirus (PCR) Not Detected (NotDetected) 11/12/23 17:56 B. pertussis DNA (PCR) Not Detected (NotDetected) 11/12/23 17:56 B.parapertussis DNA PCR Not Detected (NotDetected) 11/12/23 17:56 C. pneumoniae DNA (PCR) Not Detected (NotDetected) 11/12/23 17:56 Coronavirus OC43 (PCR) Not Detected (NotDetected) 11/12/23 17:56 Coronavirus HKU1 (PCR) Not Detected (NotDetected) 11/12/23 17:56 Coronavirus 229E (PCR) Not Detected (NotDetected) 11/12/23 17:56 SARS-CoV-2 (PCR) Not Detected (NotDetected) 11/12/23 17:56 Coronavirus NL63 (PCR) Not Detected (NotDetected) 11/12/23 17:56 Human Metapneumovir PCR Not Detected (NotDetected) 11/12/23 17:56 Influenza Type A (PCR) Not Detected (NotDetected) 11/12/23 17:56 Influenza Type B (PCR) Not Detected (NotDetected) 11/12/23 17:56 M. pneumoniae (PCR) Not Detected (NotDetected) 11/12/23 17:56 Parainfluenza 1 (PCR) Not Detected (NotDetected) 11/12/23 17:56 Parainfluenza 2 (PCR) Not Detected (NotDetected) 11/12/23 17:56 Parainfluenza 3 (PCR) Not Detected (NotDetected) 11/12/23 17:56 Parainfluenza 4 (PCR) Not Detected (NotDetected) 11/12/23 17:56 RSV (PCR) Not Detected (NotDetected) 11/12/23 17:56 Entero/Rhino (PCR) Not Detected (NotDetected) 11/12/23 17:56 Impressions Chest X-Ray 11/12/23 18:02 XR chest 1V portable HISTORY: 88 years-old Female weakness acute weakness COMPARISON: 11/21/2022 TECHNIQUE: AP view of the chest FINDINGS: Cardiac silhouette is enlarged. Hiatal hernia. Chronic interstitial coarsening. Patient is mildly rotated towards the left. Mild left basilar atelectasis versus scarring. No pneumothorax, pleural effusion or airspace consolidation. Degenerative changes of the shoulders and spine. IMPRESSION: 1. Cardiomegaly without acute process of the chest. 2. Hiatal hernia. ACT 112: Negative or not required by law. The above report was generated using voice recognition software. It may contain grammatical, syntax or spelling errors. Electronically signed by: Jermaine Antoine M.D. 11/12/2023 6:44 PM Total Time Total Time Spent Total Time Spent (In Minutes): >30 minutes
== END 2023-11-21 13:07 | DRG 871 ==
LOC: ED 17:48 → EDINP 20:34 → SUATTDRO 20:34 → EDINP 22:42 → 2E 11-13 16:54

== ENCOUNTER 2024-01-10 11:16 | Inpatient (IN) ==
--- NOTE | 2024-01-10 12:35 | CT Scan Report ---
HEAD CT NONCONTRAST CT DOSE: 1487.48 mGy.cm HISTORY: Altered mental status. TECHNIQUE: Multiaxial CT images of the head were performed without the use of intravenous contrast. A utomated exposure control was utilized for this study. A dose lowering technique was utilized adheri ng to the principles of ALARA. Comparison: Head CT 03/14/2022. Findings: Trace fluid level within the left maxillary sinus. The mastoid air cells are clear. The sheela varium and skull base are intact. There is no mass, hematoma, midline shift, acute infarct. White mat ter hypodensity is nonspecific but suggestive of microvascular ischemic change. The ventricles and lucas lci demonstrate mild age-related involutional changes. Impression: No significant change compared to the prior study. No acute intracranial abnormality. ACT 112: Negative or not required by law. Electronically signed by: Federico Faye M.D. 01/10/2024 12:34 PM
--- NOTE | 2024-01-10 12:59 | XRay Report ---
XR chest 1V portable HISTORY: Cough. Pneumonia. COMPARISON: Chest 11/12/2023. FINDINGS: Slightly rotated study. No pneumothorax. No pleural effusions. The heart is mildly enlarged . There is a moderate hiatus hernia again noted. No new focal lung consolidations to suggest a pneumo hosea. No evidence for pulmonary edema. Mild chronic interstitial thickening persists. No acute fractur es. IMPRESSION: No significant change compared to the prior study. No acute process. ACT 112: Negative or not required by law. Electronically signed by: Federico Faye M.D. 01/10/2024 12:57 PM
[2024-01-10 13:10] LABS: Basophils # (auto) 0.03 K/uL (0.00-0.20); Basophils % (auto) 0.5 %; Eosinophils # (auto) 0.04 K/uL (0.00-0.50); Eosinophils % (auto) 0.7 %; Hematocrit (blood only) 41.9 % (37.0-47.0); Hemoglobin 13.5 g/dl (12.0-16.0); Immature Granulocytes # (auto) 0.02 K/uL (0.01-0.20); Immature Granulocytes % (auto) 0.4 %; Lymphocytes # (auto) 1.18 K/uL (1.20-3.40); Lymphocytes % (auto) 21.1 %; Mean Corpuscular Hemoglobin 30.3 pg (25.0-34.0); Mean Corpuscular Hgb Conc 32.2 g/dL (32.0-36.0); Mean Corpuscular Volume 94.2 fL (80.0-100.0); Monocytes # (auto) 0.74 K/uL (0.11-0.59); Monocytes % (auto) 13.2 %; Neutrophils # (auto) 3.58 K/uL (1.40-6.50); Neutrophils % (auto) 64.1 %; Platelet Count 129 K/uL (130-400); RDW Coefficient of Variation 13.2 % (11.5-14.5); RDW Standard Deviation 45.4 fL (36.4-46.3); Red Blood Count 4.45 M/uL (4.20-5.40); White Blood Count 5.59 K/ul (4.8-10.8)
[2024-01-10 13:19] LABS: Adenovirus PCR Not Detected (NotDetected); Bordetella parapertussis PCR Not Detected (NotDetected); Bordetella pertussis PCR Not Detected (NotDetected); Chlamydia pneumoniae PCR Not Detected (NotDetected); Coronavirus 229E PCR Not Detected (NotDetected); Coronavirus CoV-2 (COVID19)PCR Not Detected (NotDetected); Coronavirus HKU1 PCR Not Detected (NotDetected); Coronavirus NL63 PCR Not Detected (NotDetected); Coronavirus OC43PCR Not Detected (NotDetected); Human Metapneumovirus PCR Not Detected (NotDetected); Influenza A PCR Not Detected (NotDetected); Influenza B PCR DETECTED (NotDetected); Mycoplasma pneumoniae PCR Not Detected (NotDetected); Parainfluenza Virus 1 PCR Not Detected (NotDetected); Parainfluenza Virus 2 PCR Not Detected (NotDetected); Parainfluenza Virus 3 PCR Not Detected (NotDetected); Parainfluenza Virus 4 PCR Not Detected (NotDetected); Respiratory Syncytial VirusPCR Not Detected (NotDetected); Rhinovirus/Enterovirus PCR Not Detected (NotDetected)
[2024-01-10 13:27] LABS: Appearance Urine Cloudy (Clear); Bacteria Urine Automated 1+ (Negative); Bilirubin Urine Negative (Negative); Blood Urine Trace (Negative); Cast Urine Automated 0 /lpf (0-5); Color Urine Yellow; Glucose Urine UA Negative (Negative); Ketones Urine Negative (Negative); Leukocyte Esterase Urine 3+ (Negative); Nitrite Urine Positive (Negative); Urobilinogen Urine Negative (Negative); WBC Urine Automated >30 /hpf (0-5); pH Urine 7.5 (4.5-7.5)
[2024-01-10 13:30] LABS: Albumin Level 3.9 gm/dl (3.4-5.0); BUN Creatinine Ratio 17.6 (10-20); Bilirubin Direct 0.2 mg/dl (0-0.2); Bilirubin,Total 0.8 mg/dl (0.2-1.0); Calcium 9.1 mg/dl (8.6-10.3); Creatinine Clr Calc Pharmacy 60.4 ml/min; Est GFR (African American) 89.9 ml/min; Est GFR (Non-African American) 77.6 ml/min; Potassium 3.6 mmol/L (3.5-5.1); Total Protein 7.6 gm/dl (6.0-8.3)
[2024-01-10 13:31] LABS: Protein Urine Trace (Negative)
[2024-01-10] MEDS: cefTRIAXone SODIUM 2,000 MG/50 ML BAG IV STA (14:23)
--- NOTE | 2024-01-10 14:37 | Emergency Department Note ---
Impression & Plan UTI (urinary tract infection), Influenza, Encephalopathy ED Provider Note NAME: HALEIGH SNYDER AGE: 88 SEX: F : 1935 ARRIVES VIA: Ambulance INFORMANT: Patient, ED PROVIDER(S): Ana Styles MD CHIEF COMPLAINT: Cough, malaise, confusion HPI: This is a 88-year-old female with history of CKD, hypertension, hyperlipidemia presenting for confusion, malaise and cough. For the past week patient has had viral symptoms such as cough, congestion. Unclear fevers at home. Patient lives alone and gets checked upon by daughter. Has had generalized malaise for about 1 week however became more concerned in the past 2 days. Currently patient able to ADLs including taking medications and doing home chores. However over the past 2 days patient is unable to do any of this and has a mix of her medications, skipping some doses, doubling up doses other days. She has had a nonproductive cough as well. Daughter is concerned that patient cannot stay alone until she is more with it. Patient does mention she feels weak and tired. No dysuria. Previously patient is been confused after UTIs as well. No chest pain or shortness of breath today. ROS: See above HPI for pertinent positives & negatives. A total of 10 systems reviewed and were otherwise negative. PAST MEDICAL HISTORY: See Below PAST SURGICAL HISTORY: See Below FAMILY HISTORY: See Below SOCIAL HISTORY: See Below HOME MEDICATIONS: See Below ALLERGIES: See Below VITALS: See Below PHYSICAL EXAMINATION: General: resting comfortably in no acute distress Head: Normocephalic and atraumatic Eyes: Normal inspection, extraocular muscles intact Ear, nose, throat: Normal external exam Neck: Normal range of motion Respiratory: lungs clear to auscultation bilaterally Cardiovascular: Regular rate/rhythm, no murmur GI: soft, nontender, no guarding or rebound Extremities: nontender, moves all extremities Neuro: The patient awake and alert, appropriately conversive, no focal deficits, symmetric faces Skin: Warm, dry, and intact MEDICAL DECISION MAKING: this is a an 88-year-old female presenting for cough, malaise and confusion. Patient vital signs are reviewed showing A-fib with RVR with 116. Otherwise patient is mildly confused, not able to currently provide full history. Her labwork shows there is no leukocytosis and no electrolyte disturbances are noted. No LFT abnormalities. -Patient is influenza be positive at this time -CT of the head reveals no acute intracranial process or changes -Patient also has a UTI on urinalysis we will give ceftriaxone for this -At this time possible explanation for patient's confusion, cough, UTI + influenza however, the Patient lives alone, and this wouldbe an unsafe discharge plan at this time. Will admit for UTI management. Differential diagnosis: UTI, viral syndrome, intracranial hemorrhage, stroke ER treatment provided: See below Diagnostics interpreted by me: ECG: None Cardiac Monitoring: An order was placed for continuous cardiac monitoring. The monitor shows a rate of atrial fibrillation rate of 102 rhythm. Laboratory studies: As stated above and show below. Imaging studies: See below. Past Med/Surg History Medical History Anxiety Chronic atrial fibrillation COVID-19 Closed fracture of right hip GERD (gastroesophageal reflux disease) HLD (hyperlipidemia) HTN (hypertension) Surgical History History of total right hip replacement Hx of appendectomy History of hip surgery Left H/O spinal fusion Family History Other Diabetes Heart disease Hypertension Social History Smoking Status: Never smoker Second Hand Exposure: No; Do You Dip or Chew Tobacco: No; Tobacco Cessation Education Requested by Patient: No Hx Alcohol Use: No Hx Substance Use: No Preferred Language: Azerbaijani Communication Ability: Effective Child Nutrition Assistant Required: No Beliefs That Will Affect Care: None marital status: / Current Living Situation: Alone Current Living Situation Comment: daughter sees her daily according to patient Other Information That Helps Us Care for You: No Feels Safe at Home: Yes Safety Concerns: Feels Safe At This Time Assistive Devices: Glasses and Walker Allergies Allergies Allergy/AdvReac Type Severity Reaction Status Date / Time Penicillins Allergy Unknown CAN'T Verified 01/10/24 15:04 REMEMBER propoxyphene Allergy Unknown CAN'T Verified 01/10/24 15:04 REMEMBER quinine Allergy Unknown CAN'T Verified 01/10/24 15:04 REMEMBER morphine AdvReac Severe extreme Verified 01/10/24 15:04 confusion Cephalosporins AdvReac Intermediate DIZZINESS Verified 01/10/24 15:04 & NAUSEA lisinopril AdvReac Intermediate COUGH Verified 01/10/24 15:04 simvastatin AdvReac Intermediate MUSCLE PAIN Verified 01/10/24 15:04 Home Meds Home Medications Medication Instructions Recorded Confirmed atorvastatin 10 mg tablet 10 mg PO HS 04/19/20 01/10/24 fluoxetine 20 mg capsule 20 mg PO QAM 04/19/20 01/10/24 apixaban 2.5 mg tablet (Eliquis) 2.5 mg PO BID 11/21/22 01/10/24 multivitamin 1 tab PO DAILY 11/21/22 01/10/24 dextromethorphan-guaifenesin 30 1 tab PO Q12H 01/10/24 01/10/24 mg-600 mg tablet extended [id number] hr (Mucinex DM) metoprolol succinate 100 mg 100 mg PO BID 01/10/24 01/10/24 tablet,extended release 24 hr Previous Rx's Medication Instructions Recorded acetaminophen 325 mg tablet 650 mg (2 x 325 mg) PO Q6H PRN 04/22/20 pain #50 tabs Results & Data (ED) Vital Signs Vital Signs - 24 hr 01/10/24 11:25 01/10/24 11:30 01/10/24 11:32 Temperature Temperature Source Pulse Rate 95 H 86 98 H Respiratory Rate 30 H 31 H 28 H Blood Pressure Blood Pressure [Left Arm] Blood Pressure Mean Blood Pressure Mean [Left Arm] Pulse Oximetry 90 96 Oxygen Delivery Method Sepsis Recent Fever Within 48 Hours Sepsis New/Unexplained Change in Mental Status Sepsis Action Taken by Nursing 01/10/24 11:32 01/10/24 11:33 01/10/24 11:33 Temperature Temperature Source Pulse Rate 95 H Respiratory Rate 29 H Blood Pressure 169/100 H 165/89 H Blood Pressure [Left Arm] Blood Pressure Mean 127 129 Blood Pressure Mean [Left Arm] Pulse Oximetry Oxygen Delivery Method Sepsis Recent Fever Within 48 Hours Sepsis New/Unexplained Change in Mental Status Sepsis Action Taken by Nursing 01/10/24 11:37 01/10/24 11:40 01/10/24 11:50 Temperature 36.4 C L Temperature Source Oral Pulse Rate 94 H 93 H 98 H Respiratory Rate 26 H 21 24 Blood Pressure 165/89 H Blood Pressure [Left Arm] Blood Pressure Mean 114 Blood Pressure Mean [Left Arm] Pulse Oximetry 95 92 99 Oxygen Delivery Method Room Air Sepsis Recent Fever Within 48 Hours No Sepsis New/Unexplained Change in Mental Status N/A Sepsis Action Taken by Nursing No Action Required 01/10/24 12:00 01/10/24 12:05 01/10/24 12:10 Temperature Temperature Source Pulse Rate 100 H 104 H 108 H Respiratory Rate 28 H 25 H Blood Pressure Blood Pressure [Left Arm] Blood Pressure Mean Blood Pressure Mean [Left Arm] Pulse Oximetry 92 93 Oxygen Delivery Method Sepsis Recent Fever Within 48 Hours Sepsis New/Unexplained Change in Mental Status Sepsis Action Taken by Nursing 01/10/24 12:23 01/10/24 12:29 01/10/24 12:30 Temperature Temperature Source Pulse Rate 98 H 114 H 116 H Respiratory Rate 23 26 H Blood Pressure Blood Pressure [Left Arm] Blood Pressure Mean Blood Pressure Mean [Left Arm] Pulse Oximetry 97 97 Oxygen Delivery Method Sepsis Recent Fever Within 48 Hours Sepsis New/Unexplained Change in Mental Status Sepsis Action Taken by Nursing 01/10/24 12:40 01/10/24 12:50 01/10/24 13:00 Temperature Temperature Source Pulse Rate 111 H 98 H 103 H Respiratory Rate 29 H 24 26 H Blood Pressure Blood Pressure [Left Arm] Blood Pressure Mean Blood Pressure Mean [Left Arm] Pulse Oximetry 94 97 99 Oxygen Delivery Method Sepsis Recent Fever Within 48 Hours Sepsis New/Unexplained Change in Mental Status Sepsis Action Taken by Nursing 01/10/24 13:09 01/10/24 13:09 01/10/24 13:10 Temperature Temperature Source Pulse Rate 109 H 103 H Respiratory Rate 30 H 26 H Blood Pressure 167/110 H Blood Pressure [Left Arm] Blood Pressure Mean 132 Blood Pressure Mean [Left Arm] Pulse Oximetry 97 95 Oxygen Delivery Method Sepsis Recent Fever Within 48 Hours Sepsis New/Unexplained Change in Mental Status Sepsis Action Taken by Nursing 01/10/24 13:20 01/10/24 13:30 01/10/24 13:40 Temperature Temperature Source Pulse Rate 96 H 100 H 113 H Respiratory Rate 24 24 Blood Pressure Blood Pressure [Left Arm] Blood Pressure Mean Blood Pressure Mean [Left Arm] Pulse Oximetry 89 L 92 94 Oxygen Delivery Method Sepsis Recent Fever Within 48 Hours Sepsis New/Unexplained Change in Mental Status Sepsis Action Taken by Nursing 01/10/24 13:50 01/10/24 15:01 01/10/24 16:09 Temperature Temperature Source Pulse Rate 102 H 116 H Respiratory Rate 20 Blood Pressure Blood Pressure [Left Arm] 148/101 H Blood Pressure Mean Blood Pressure Mean [Left Arm] 116 Pulse Oximetry 93 Oxygen Delivery Method Sepsis Recent Fever Within 48 Hours Sepsis New/Unexplained Change in Mental Status Sepsis Action Taken by Nursing Laboratory Data 01/12/24 07:06 01/12/24 07:06 Lab Results 01/10/24 01/10/24 01/10/24 Range/Units 12:12 12:32 12:43 WBC 5.59 (4.8-10.8) K/ul RBC 4.45 (4.20-5.40) M/uL Hgb 13.5 (12.0-16.0) g/dl Hct 41.9 (37.0-47.0) % MCV 94.2 (80.0-100.0) fL MCH 30.3 (25.0-34.0) pg MCHC 32.2 (32.0-36.0) g/dL RDW Std Deviation 45.4 (36.4-46.3) fL RDW Coeff of Edison 13.2 (11.5-14.5) % Plt Count 129 L (130-400) K/uL MPV 10.0 (9.4-12.4) fL Immature Gran % (Auto) 0.4 % Neut % (Auto) 64.1 % Lymph % (Auto) 21.1 % Craven % (Auto) 13.2 % Eos % (Auto) 0.7 % Baso % (Auto) 0.5 % Neut # (Auto) 3.58 (1.40-6.50) K/uL Lymph # (Auto) 1.18 L (1.20-3.40) K/uL Craven # (Auto) 0.74 H (0.11-0.59) K/uL Eos # (Auto) 0.04 (0.00-0.50) K/uL Baso # (Auto) 0.03 (0.00-0.20) K/uL Immature Gran # (Auto) 0.02 (0.01-0.20) K/uL Sodium 141 (136-145) mmol/L Potassium 3.6 (3.5-5.1) mmol/L Chloride 104 (98-107) mmol/L Carbon Dioxide 30 (21-32) mmol/L Anion Gap 7 (3-11) BUN 12 (6-23) mg/dl Creatinine 0.68 (0.6-1.2) mg/dl Est Cr Clr Drug Dosing 60.4 ml/min Est GFR ( Amer) 89.9 ml/min Est GFR (Non-Af Amer) 77.6 ml/min BUN/Creatinine Ratio 17.6 (10-20) Glucose 84 (70-99(Fasting)) mg/dl Calcium 9.1 (8.6-10.3) mg/dl Total Bilirubin 0.8 (0.2-1.0) mg/dl Direct Bilirubin 0.2 (0-0.2) mg/dl AST 35 (13-39) U/L ALT 25 (7-52) U/L Alkaline Phosphatase 85 (34-104) U/L Total Protein 7.6 (6.0-8.3) gm/dl Albumin 3.9 (3.4-5.0) gm/dl Procalcitonin < 0.02 (0-0.5) ng/ml Urine Color Urine Appearance (Clear) Urine pH (4.5-7.5) Ur Specific [place] (1.000-1.030) Urine Protein (Negative) Urine Glucose (UA) (Negative) Urine Ketones (Negative) Urine Blood (Negative) Urine Nitrite (Negative) Urine Bilirubin (Negative) Urine Urobilinogen (Negative) Ur Leukocyte Esterase (Negative) Urine WBC (Auto) (0-5) /hpf Urine RBC (Auto) (0-4) /hpf U Hyaline Cast (Auto) (0-5) /lpf U Epithel Cells (Auto) (0-5) /lpf Urine Bacteria (Auto) (Negative) Adenovirus (PCR) Not Detected (NotDetected) B. pertussis DNA (PCR) Not Detected (NotDetected) B.parapertussis DNA PCR Not Detected (NotDetected) C. pneumoniae DNA (PCR) Not Detected (NotDetected) Coronavirus OC43 (PCR) Not Detected (NotDetected) Coronavirus HKU1 (PCR) Not Detected (NotDetected) Coronavirus 229E (PCR) Not Detected (NotDetected) SARS-CoV-2 (PCR) Not Detected (NotDetected) Coronavirus NL63 (PCR) Not Detected (NotDetected) Human Metapneumovir PCR Not Detected (NotDetected) Influenza Type A (PCR) Not Detected (NotDetected) Influenza Type B (PCR) DETECTED A (NotDetected) M. pneumoniae (PCR) Not Detected (NotDetected) Parainfluenza 1 (PCR) Not Detected (NotDetected) Parainfluenza 2 (PCR) Not Detected (NotDetected) Parainfluenza 3 (PCR) Not Detected (NotDetected) Parainfluenza 4 (PCR) Not Detected (NotDetected) RSV (PCR) Not Detected (NotDetected) Entero/Rhino (PCR) Not Detected (NotDetected) 01/10/24 Range/Units 13:06 WBC (4.8-10.8) K/ul RBC (4.20-5.40) M/uL Hgb (12.0-16.0) g/dl Hct (37.0-47.0) % MCV (80.0-100.0) fL MCH (25.0-34.0) pg MCHC (32.0-36.0) g/dL RDW Std Deviation (36.4-46.3) fL RDW Coeff of Edison (11.5-14.5) % Plt Count (130-400) K/uL MPV (9.4-12.4) fL Immature Gran % (Auto) % Neut % (Auto) % Lymph % (Auto) % Craven % (Auto) % Eos % (Auto) % Baso % (Auto) % Neut # (Auto) (1.40-6.50) K/uL Lymph # (Auto) (1.20-3.40) K/uL Craven # (Auto) (0.11-0.59) K/uL Eos # (Auto) (0.00-0.50) K/uL Baso # (Auto) (0.00-0.20) K/uL Immature Gran # (Auto) (0.01-0.20) K/uL Sodium (136-145) mmol/L Potassium (3.5-5.1) mmol/L Chloride (98-107) mmol/L Carbon Dioxide (21-32) mmol/L Anion Gap (3-11) BUN (6-23) mg/dl Creatinine (0.6-1.2) mg/dl Est Cr Clr Drug Dosing ml/min Est GFR ( Amer) ml/min Est GFR (Non-Af Amer) ml/min BUN/Creatinine Ratio (10-20) Glucose (70-99(Fasting)) mg/dl Calcium (8.6-10.3) mg/dl Total Bilirubin (0.2-1.0) mg/dl Direct Bilirubin (0-0.2) mg/dl AST (13-39) U/L ALT (7-52) U/L Alkaline Phosphatase (34-104) U/L Total Protein (6.0-8.3) gm/dl Albumin (3.4-5.0) gm/dl Procalcitonin (0-0.5) ng/ml Urine Color Yellow Urine Appearance Cloudy A (Clear) Urine pH 7.5 (4.5-7.5) Ur Specific [place] 1.010 (1.000-1.030) Urine Protein Trace H (Negative) Urine Glucose (UA) Negative (Negative) Urine Ketones Negative (Negative) Urine Blood Trace H (Negative) Urine Nitrite Positive A (Negative) Urine Bilirubin Negative (Negative) Urine Urobilinogen Negative (Negative) Ur Leukocyte Esterase 3+ H (Negative) Urine WBC (Auto) >30 H (0-5) /hpf Urine RBC (Auto) 5-10 H (0-4) /hpf U Hyaline Cast (Auto) 0 (0-5) /lpf U Epithel Cells (Auto) 10-20 H (0-5) /lpf Urine Bacteria (Auto) 1+ H (Negative) Adenovirus (PCR) (NotDetected) B. pertussis DNA (PCR) (NotDetected) B.parapertussis DNA PCR (NotDetected) C. pneumoniae DNA (PCR) (NotDetected) Coronavirus OC43 (PCR) (NotDetected) Coronavirus HKU1 (PCR) (NotDetected) Coronavirus 229E (PCR) (NotDetected) SARS-CoV-2 (PCR) (NotDetected) Coronavirus NL63 (PCR) (NotDetected) Human Metapneumovir PCR (NotDetected) Influenza Type A (PCR) (NotDetected) Influenza Type B (PCR) (NotDetected) M. pneumoniae (PCR) (NotDetected) Parainfluenza 1 (PCR) (NotDetected) Parainfluenza 2 (PCR) (NotDetected) Parainfluenza 3 (PCR) (NotDetected) Parainfluenza 4 (PCR) (NotDetected) RSV (PCR) (NotDetected) Entero/Rhino (PCR) (NotDetected) Administered Medications Apixaban (Apixaban 2.5 Mg Tab) 2.5 mg PO BID [facility] Stop: 02/09/24 20:59 Last Admin: 01/12/24 09:34 Dose: 2.5 mg Documented By: Admin: 01/11/24 20:25 Dose: 2.5 mg Documented By: Admin: 01/11/24 09:34 Dose: 2.5 mg Documented By: Admin: 01/10/24 20:09 Dose: 2.5 mg Documented By: GALLITO Atorvastatin Calcium (Atorvastatin 10 Mg Tab) 10 mg PO HS [facility] Stop: 02/09/24 20:59 Last Admin: 01/11/24 20:25 Dose: 10 mg Documented By: Admin: 01/10/24 20:09 Dose: 10 mg Documented By: GALLITO Fluoxetine HCl (Fluoxetine Hcl 20 Mg Cap) 20 mg PO QAM [facility] Stop: 02/10/24 08:59 Last Admin: 01/12/24 09:34 Dose: 20 mg Documented By: Admin: 01/11/24 09:34 Dose: 20 mg Documented By: RAMONA Guaifenesin (Guaifenesin 600 Mg Tabcr) 1,200 mg PO Q12 [facility] Stop: 02/09/24 20:59 Last Admin: 01/12/24 09:35 Dose: 1,200 mg Documented By: Admin: 01/11/24 20:25 Dose: 1,200 mg Documented By: Admin: 01/11/24 09:35 Dose: 1,200 mg Documented By: Admin: 01/10/24 20:08 Dose: 1,200 mg Documented By: GALLITO Ceftriaxone Sodium 2,000 mg/ (Dextrose) 50 mls @ 100 mls/hr IV Q24H [facility]; Protocol Stop: 01/16/24 12:59 Last Infusion: 01/11/24 13:14 Dose: Infused Documented By: Admin: 01/11/24 12:44 Dose: 100 mls/hr Documented By: RAMONA Metoprolol Succinate (Metoprolol Succ 50mg Ext Rel Tab) 100 mg PO BID [facility] Stop: 02/10/24 08:59 Last Admin: 01/12/24 09:35 Dose: 100 mg Documented By: Admin: 01/11/24 20:25 Dose: 100 mg Documented By: Admin: 01/11/24 09:35 Dose: 100 mg Documented By: RAMONA Multivitamins (Multivitamin Tab) 1 tab PO DAILY [facility] Stop: 02/10/24 08:59 Last Admin: 01/12/24 09:35 Dose: 1 tab Documented By: Admin: 01/11/24 09:35 Dose: 1 tab Documented By: RAMONA Discontinued Medications Ceftriaxone Sodium (Rocephin) 2,000 mg in 50 mls @ 100 mls/hr IV NOW STA Stop: 01/10/24 14:37 Last Infusion: 01/10/24 15:09 Dose: Infused Documented By: Admin: 01/10/24 14:23 Dose: 100 mls/hr Documented By: QUINN Sodium Chloride (Nss) 500 mls @ 999 mls/hr IV .Q31M [facility] Stop: 01/10/24 16:01 Last Infusion: 01/10/24 17:19 Dose: Infused Documented By: Admin: 01/10/24 15:47 Dose: 999 mls/hr Documented By: NICHO Methylprednisolone 80 mg/ (Syringe) 1.28 mls @ 0.427 mls/min IV NOW ONE Stop: 01/10/24 16:41 Last Admin: 01/10/24 17:08 Dose: 0.427 mls/min Documented By: NICHO Ipratropium [place] (Ipratropium [place] Neb Soln 0.02% 0.5mg/2.5ml Vial) 0.5 mg INH QDR [facility] Stop: 02/09/24 17:08 Last Admin: 01/10/24 17:30 Dose: Not Given Documented By: JAYANT Ipratropium [place] (Ipratropium [place] Neb Soln 0.02% 0.5mg/2.5ml Vial) 0.5 mg INH Q6R [facility] Stop: 02/09/24 17:08 Last Admin: 01/11/24 14:10 Dose: Not Given Documented By: Admin: 01/11/24 07:00 Dose: 0.5 mg Documented By: Admin: 01/11/24 00:50 Dose: Not Given Documented By: Admin: 01/10/24 20:28 Dose: 0.5 mg Documented By: ANGELICAT Levalbuterol HCl (Levalbuterol 1.25 Mg/3 Ml Neb) 1.25 mg NEB QDR [facility] Stop: 02/09/24 17:08 Last Admin: 01/10/24 17:30 Dose: Not Given Documented By: JAYANT Levalbuterol HCl (Levalbuterol 1.25 Mg/3 Ml Neb) 1.25 mg NEB Q6R [facility] Stop: 02/09/24 17:08 Last Admin: 01/11/24 14:10 Dose: Not Given Documented By: Admin: 01/11/24 07:00 Dose: 1.25 mg Documented By: Admin: 01/11/24 00:50 Dose: Not Given Documented By: Admin: 01/10/24 20:28 Dose: 1.25 mg Documented By: JOSEY Metoprolol Succinate (Metoprolol Succ 50mg Ext Rel Tab) 100 mg PO NOW STA Stop: 01/10/24 16:19 Last Admin: 01/10/24 17:08 Dose: 100 mg Documented By: NICHO Metoprolol Tartrate (Metoprolol Tartrate 1 Mg/Ml Vial) 5 mg IV NOW STA Stop: 01/10/24 19:39 Last Admin: 01/10/24 20:11 Dose: 5 mg Documented By: [facility] [place] Data Radiologist's Impression: Head CT 01/10/24 11:[address] DOSE: 1487.48 mGy.cm HISTORY: Altered mental status. TECHNIQUE: Multiaxial CT images of the head were performed without the use of intravenous contrast. Automated exposure control was utilized for this study. A dose lowering technique was utilized adhering to the principles of ALARA. Comparison: Head CT 03/14/2022. Findings: Trace fluid level within the left maxillary sinus. The mastoid air cells are clear. The calvarium and skull base are intact. There is no mass, hematoma, midline shift, acute infarct. White matter hypodensity is nonspecific but suggestive of microvascular ischemic change. The ventricles and sulci demonstrate mild age-related involutional changes. Impression: No significant change compared to the prior study. No acute intracranial abnormality. ACT 112: Negative or not required by law. Electronically signed by: Federico Faye M.D. 01/10/2024 12:34 PM Chest X-Ray 01/10/24 11:59 XR chest 1V portable HISTORY: Cough. Pneumonia. COMPARISON: Chest 11/12/2023. FINDINGS: Slightly rotated study. No pneumothorax. No pleural effusions. The heart is mildly enlarged. There is a moderate hiatus hernia again noted. No new focal lung consolidations to suggest a pneumonia. No evidence for pulmonary edema. Mild chronic interstitial thickening persists. No acute fractures. IMPRESSION: No significant change compared to the prior study. No acute process. ACT 112: Negative or not required by law. Electronically signed by: Federico Faye M.D. 01/10/2024 12:57 PM Discharge Plan Visit Data Chief Complaint: Illness Stated Complaint: Weakness/Illness ED Provider: Ana Styles Discharge Problem: UTI (urinary tract infection), Influenza, Encephalopathy Patient Disposition: Admitted As Inpatient Discharge Instructions Interventions: ED Discharge Assessment Last Done: 01/10/24 17:10
--- NOTE | 2024-01-10 15:05 | History & Physical Report ---
Date of Service January 10, 2024 Assessment & Plan (1) Influenza: Plan: Patient is 88 year old female with PMH HTN, dyslipidemia, atrial fibrillation anticoagulated on Eliquis, anxiety, GERD presented to ER with complaint of cough and confusion x 1 week. In ER afebrile, pulse 90s to low 100s BP 165/89, 95% on room air. No leukocytosis. + Influenza B on respiratory bio fire panel. Lactate: 2.4 -->1.4 Given 500 mL NSS Give 1 dose Solu-Medrol now We will hold on Tamiflu since patient onset of symptoms 5 days ago Supplemental oxygen as needed Xopenex nebs to try to avoid tachycardia Incentive spirometer, flutter valve, Mucinex CBC, BMP in a.m. (2) UTI (urinary tract infection): Plan: UA: 3+ leuk esterase, + nitrate, > 30 WBC, 10-20 epithelial, 1+ bacteria Possible UTI Urine culture, blood cultures pending In ER given Rocephin Will continue for now (3) Metabolic encephalopathy: (4) Weakness: (5) Ambulatory dysfunction: Plan: Metabolic encephalopathy, generalized weakness and ambulatory dysfunction likely secondary to underlying influenza and possible UTI Treatment as above PT/OT eval (6) Permanent atrial fibrillation: Plan: Heart rates variable in ER from 90s to low 100s Give patient's home metoprolol dose now Monitor may need to give additional metoprolol to tartrate as needed Continue Eliquis Patient was previously on digoxin however reports was not on discharge summary from rehab so have not been giving it to her If continued A-fib RVR consider cardiology consult (7) HLD (hyperlipidemia): Plan: Continue atorvastatin (8) Anxiety: Plan: Continue fluoxetine DVT Prophylaxis Eliquis DNR/DNI as per discussion with patient and patient's daugther Follows with Dr Smiley for routine care Pt was seen and care coordinated with Dr Leslie. See addendum I spent a total of 79 minutes reviewing notes, outpatient records, labs, medication, coordinating, documenting and providing care for this patient excluding time spent in the performance of separately billed services. History of Present Illness Chief Complaint: Cough, confusion Primary Care Provider: Redd Smiley MD Patient is 88 year old female with PMH HTN, dyslipidemia, atrial fibrillation anticoagulated on Eliquis, anxiety, GERD presented to ER with complaint of cough and confusion x 1 week. History obtained from patient, patient's daughter, inpatient and outpatient chart review. States one week ago started with increased confusion and was having trouble taking her pills correctly and getting confused easily. 5 days ago started with congestion, productive yellow cough. Patient states doesn't feel SOB however today daughter noticed seems she was breathing more heavy. States generalized weakness and fatigue. Yesterday and today not moving around much states "feel too tired". Walks with walker at baseline. Denies known falls. Denies CP. Denies fever/chills, diaphoresis, N/V/D/C, SCHULZ, dizziness, syncope, vision changes, neck pain, palpitations, hemoptysis, sore throat, choking, abdominal pain, extremity edema, rashes, urinary symptoms. Allergies Allergy/AdvReac Type Severity Reaction Status Date / Time Penicillins Allergy Unknown CAN'T Verified 01/10/24 15:04 REMEMBER propoxyphene Allergy Unknown CAN'T Verified 01/10/24 15:04 REMEMBER quinine Allergy Unknown CAN'T Verified 01/10/24 15:04 REMEMBER morphine AdvReac Severe extreme Verified 01/10/24 15:04 confusion Cephalosporins AdvReac Intermediate DIZZINESS Verified 01/10/24 15:04 & NAUSEA lisinopril AdvReac Intermediate COUGH Verified 01/10/24 15:04 simvastatin AdvReac Intermediate MUSCLE PAIN Verified 01/10/24 15:04 Home Medications Medication Instructions Recorded Confirmed Type atorvastatin 10 mg tablet 10 mg PO HS 04/19/20 01/10/24 History fluoxetine 20 mg capsule 20 mg PO QAM 04/19/20 01/10/24 History acetaminophen 325 mg tablet 650 mg (2 x 325 mg) PO Q6H PRN 04/22/20 01/10/24 Rx pain #50 tabs apixaban 2.5 mg tablet (Eliquis) 2.5 mg PO BID 11/21/22 01/10/24 History multivitamin 1 tab PO DAILY 11/21/22 01/10/24 History dextromethorphan-guaifenesin 30 1 tab PO Q12H 01/10/24 01/10/24 History mg-600 mg tablet extended hr (Mucinex DM) metoprolol succinate 100 mg 100 mg PO BID 01/10/24 01/10/24 History tablet,extended release 24 hr Past Med/Surg History Medical History Anxiety Chronic atrial fibrillation COVID-19 Closed fracture of right hip GERD (gastroesophageal reflux disease) HLD (hyperlipidemia) HTN (hypertension) Surgical History History of total right hip replacement Hx of appendectomy History of hip surgery Left H/O spinal fusion Family History Other Diabetes Heart disease Hypertension Social History Smoking Status: Never smoker Second Hand Exposure: No; Do You Dip or Chew Tobacco: No; Tobacco Cessation Education Requested by Patient: No Hx Alcohol Use: No Hx Substance Use: No Preferred Language: Estonian Communication Ability: Effective Electronic Bench Technician Required: No Beliefs That Will Affect Care: None marital status: / Current Living Situation: Alone Current Living Situation Comment: daughter sees her daily according to patient Other Information That Helps Us Care for You: No Feels Safe at Home: Yes Safety Concerns: Feels Safe At This Time Assistive Devices: Glasses and Walker Review of Systems Review of Systems: All systems reviewed & are unremarkable except as noted in HPI & below Physical Exam Physical Exam: General: no acute distress, WDWN elderly female Head: normocephalic, atraumatic Eyes: PERRL, EOM's intact, conjunctiva non-injected, anicteric ENT: normal inspection external ears, nose, mucous membranes dry Neck: supple, trachea midline Lungs: no respiratory distress, 93% on RA, + scattered wheezing, no rales/rhonchi noted CV: irregularly irregularly, rate 104, no pretibial edema Abd: normal BS, soft, non-tender Ext: no cyanosis, no calf tenderness Neuro: Alert, oriented to person, place. Not oriented to month, day or year. No other focal deficits noted, normal affect Skin: warm, dry Results & Data Results & Data Vital Signs (Past 12 Hours) Vital Signs Temp Pulse Resp BP Pulse Ox O2 Del Method 01/10/24 13:50 102 H 20 93 01/10/24 13:40 113 H 94 01/10/24 13:30 100 H 24 92 01/10/24 13:20 96 H 24 89 L 01/10/24 13:10 103 H 26 H 95 01/10/24 13:09 109 H 30 H 97 01/10/24 13:09 167/110 H 01/10/24 13:00 103 H 26 H 99 01/10/24 12:50 98 H 24 97 01/10/24 12:40 111 H 29 H 94 01/10/24 12:30 116 H 26 H 97 01/10/24 12:29 114 H 23 97 01/10/24 12:23 98 H 01/10/24 12:10 108 H 25 H 93 01/10/24 12:05 104 H 01/10/24 12:00 100 H 28 H 92 01/10/24 11:50 98 H 24 99 01/10/24 11:40 93 H 21 92 01/10/24 11:37 36.4 C L 94 H 26 H 165/89 H 95 Room Air 01/10/24 11:33 95 H 29 H 01/10/24 11:33 165/89 H 01/10/24 11:32 169/100 H 01/10/24 11:32 98 H 28 H 96 01/10/24 11:30 86 31 H 90 01/10/24 11:25 95 H 30 H Laboratory Results Short CBC 01/10/24 Range/Units 12:32 WBC 5.59 (4.8-10.8) K/ul Hgb 13.5 (12.0-16.0) g/dl Hct 41.9 (37.0-47.0) % Plt Count 129 L (130-400) K/uL BMP 01/10/24 12:32 Sodium 141 Potassium 3.6 Chloride 104 Carbon Dioxide 30 BUN 12 Creatinine 0.68 Glucose 84 Calcium 9.1 Liver Function 01/10/24 Range/Units 12:32 Total Bilirubin 0.8 (0.2-1.0) mg/dl Direct Bilirubin 0.2 (0-0.2) mg/dl AST 35 (13-39) U/L ALT 25 (7-52) U/L Alkaline Phosphatase 85 (34-104) U/L Albumin 3.9 (3.4-5.0) gm/dl Urine 01/10/24 Range/Units 13:06 Urine Color Yellow Urine Appearance Cloudy A (Clear) Urine pH 7.5 (4.5-7.5) Ur Specific [place] 1.010 (1.000-1.030) Urine Protein Trace H (Negative) Urine Glucose (UA) Negative (Negative) Diagnostic Findings Head CT 01/10/24 11:[address] DOSE: 1487.48 mGy.cm HISTORY: Altered mental status. TECHNIQUE: Multiaxial CT images of the head were performed without the use of intravenous contrast. Automated exposure control was utilized for this study. A dose lowering technique was utilized adhering to the principles of ALARA. Comparison: Head CT 03/14/2022. Findings: Trace fluid level within the left maxillary sinus. The mastoid air cells are clear. The calvarium and skull base are intact. There is no mass, hematoma, midline shift, acute infarct. White matter hypodensity is nonspecific but suggestive of microvascular ischemic change. The ventricles and sulci demonstrate mild age-related involutional changes. Impression: No significant change compared to the prior study. No acute intracranial abnormality. ACT 112: Negative or not required by law. Electronically signed by: Federico Faye M.D. 01/10/2024 12:34 PM Chest X-Ray 01/10/24 11:59 XR chest 1V portable HISTORY: Cough. Pneumonia. COMPARISON: Chest 11/12/2023. FINDINGS: Slightly rotated study. No pneumothorax. No pleural effusions. The heart is mildly enlarged. There is a moderate hiatus hernia again noted. No new focal lung consolidations to suggest a pneumonia. No evidence for pulmonary edema. Mild chronic interstitial thickening persists. No acute fractures. IMPRESSION: No significant change compared to the prior study. No acute process. ACT 112: Negative or not required by law. Electronically signed by: Federico Faye M.D. 01/10/2024 12:57 PM ECG Additional Comments: atrial fibrillation, rate 89, nonspecific ST changes Supervising Physician Co-Signing Physician Notes Attending addendum: The patient was seen and examined in emergency room in presence of the daughter She was brought in with acute confusion which is noted to be mostly in the evening Has history of ongoing cough and weakness and also has frequency with urination, no fever and no chills Noted to have UTI and also influenza A Feeling a little better since admission On examination Lying in bed comfortably Not in any acute confusion at this time Hemodynamically stable with blood pressure on the upper side at 148/101 and tachycardia Chest-clear to auscultate bilaterally Heart S1-S2, irregular Abdomen-benign Extremities-negative for any edema Her admission labs, imaging studies reviewed Acute confusion likely secondary to UTI and is complicated by influenza A Has been started with intravenous ceftriaxone and will continue for now Strongly advised to drink more fluid Atrial fibrillation with tachycardia we will continue the current medications but no acute cardiac symptoms Agree with assessment and plan as outlined above by JIMMIE Eaton Dr
[2024-01-10] MEDS: SODIUM CHLORIDE 0.9% 500 ML IV STA (15:47)
[2024-01-10] MEDS: methylPREDNISolone 80 MG in SYRINGE 0 ML IV ONE (17:08)
[2024-01-10] MEDS: METOPROLOL SUCC 50MG EXT REL TAB PO STA (17:08)
[2024-01-10] MEDS ORDERED: POLYETHYLENE (MIRALAX) 17 GM PACK PO PRN (17:09)
[2024-01-10] MEDS ORDERED: ONDANSETRON INJ 2 MG/ML 2 ML VIAL IV PRN (17:09)
[2024-01-10] MEDS: IPRATROPIUM BROMIDE NEB SOLN 0.02% 0.5MG/2.5ML VIAL INH SCH ×2 (17:30→20:28)
[2024-01-10] MEDS: LEVALBUTEROL 1.25 MG/3 ML NEB NEB SCH ×2 (17:30→20:28)
[2024-01-10] MEDS ORDERED: XOPENEX/ATROVENT 1.25mg/0.5MG NEB COMBO NEB SCH (19:00)
[2024-01-10] MEDS: guaiFENesin 600 MG TABCR PO SCH (20:08)
[2024-01-10] MEDS: ATORVASTATIN 10 MG TAB PO SCH (20:09)
[2024-01-10] MEDS: APIXABAN 2.5 MG TAB PO SCH (20:09)
[2024-01-10] MEDS: METOPROLOL TARTRATE 1 MG/ML VIAL IV STA (20:11)
--- OUTSIDE RECORDS SUMMARY | 2024-01-10 21:40 | External Medical Summary | Summary of Care ---
Author Name Unknown Organization [facility] Address [address] [place] [place] [address] Phone [phone] Care Team Providers Care [employer] Teacher Name Role Phone Redd Smiley DO Primary Care Provid er Reason for Visit * Reason Comments eRx-Medication Refill Encounter Details Date Type Department Care Team ([facility] Contact Info) Description 01/02/2024 Refill Family [address] [phone] Redd Smiley DO [address] [place] [id number] Paroxysmal atrial fibrillation (HCC) Allergies Active Allergy Reactions Criticality Noted Date Comments Cephalosporins 12/05/2007 Dizziness and nausea Hydrochlorothiazide Abdominal pain 07/16/2018 Lisinopril Cough 01/30/2018 Morphine Psych complications High 05/23/2020 Penicillins 02/14/2001 Propoxyphene Napsylate 12/02/2001 Quinine Sulfate 02/16/2003 Simvastatin Muscle pain Medium 07/04/2010 documented as of this encounter (statuses as of 01/03/2024) Medications Medication Sig Dispensed Refills Start Date End Date Status Centrum Silver Adult 50+ Oral Tablet Take 1 Tablet by mouth in the morning. 100 Tab 0 07/15/2020 Active FLUoxetine HCl 20 MG Oral Capsule [...] BEFORE BEDTIME. 180 Tablet 2 10/26/2023 Active Metoprolol Succinate ER 100 MG Oral Tablet Extended Release 24 Hour (toPROL XL)Indications:Chr onic atrial fibrillation (HCC) Take 1 Tablet by mouth in the morning and 1 Tablet before bedtime. 180 Tablet 1 12/11/2023 Active Digoxin 125 MCG Oral Tablet (Lanoxin)Indicatio ns:Paroxysmal atrial fibrillation (HCC) TAKE 1 TABLET BY MOUTH EVERY OTHER DAY 15 Tablet 0 01/03/2024 Active Digoxin 125 MCG Oral Tablet (Lanoxin)Indicatio ns:Paroxysmal atrial fibrillation (HCC) Take 1 Tablet by mouth every other day. 15 Tablet 0 12/05/2023 Discontinued documented as of this encounter (statuses as of 01/03/2024) Active Problems Problem Noted Date Diagnosed Date Depression with anxiety 11/21/2023 Chronic atrial fibrillation 11/28/2022 Dyslipidemia, goal LDL below 130 01/08/2018 HTN, GOAL BELOW 140/90 08/31/2009 Overview: Modified per HTN protocol #16. ADVANCE DIRECTIVE INFORMATION 08/15/2005 Overview: Yes, Patient instructed to provide copy of advance directive for provider to review and to be scanned into Electronic Medical Record documented as of this encounter (statuses as of 01/03/2024) Resolved Problems Problem Noted Date Diagnosed Date [...] as of this encounter (statuses as of 01/03/2024) Immunizations Name Administration Dates Next Due Pneumococcal [...] encounter Miscellaneous Notes * Telephone Encounter - Queenie Clemons PA-C - 01/03/2024 8:28 AM EDT Signed Prescriptions: Disp Refills Digoxin 125 MCG Oral Tablet (Lanoxin) 15 Tab*0 Sig: TAKE 1 TABLET BY MOUTH EVERY OTHER DAY Authorizing Provider: QUEENIE CLEMONS * Telephone Encounter - My Naranjo LPN - 01/03/2024 8:17 AM EDTPending Prescriptions: Disp Refills Digoxin 125 MCG Oral Tablet [Pharmacy Med *15 Tab*0 Sig: Take 1 Tablet by mouth every other day. * Telephone Encounter - Luis Hartley - 01/02/2024 8:17 PM EDTPending Prescriptions: Disp Refills Digoxin 125 MCG Oral Tablet [Pharmacy Med *15 Tab*0 Sig: Take 1Tablet by mouth every other day. documented in this encounter Plan of Treatment Upcoming Encounters Date Type Department Care Team ([facility] Contact Info) Description 01/14/2024 1:00 PM EDT Office Visit Podiatry [address] [place] [phone] Ruben Diallo, LITA [address] [place] [address] 01/17/2024 10:20 AM EDT Office Visit Family Practice [address] [phone] Redd Smiley DO [address] [place] [id number] Health Maintenance Due Date Last Done Comments Zoster Vaccines (1 of 2) 1984 DXA Scan 06/15/2019 06/15/2016, 12/2009, 08/30/2007, Additional history exists Albumin/Creatinine Ratio 07/09/2021 07/09/2018, 02/12 COVID-19 Vaccine ( season) 2023 02/21/2021, 01/24/2021 Depression Screening 01/16/2024 01/15/2023, 11/22/2014 (Declined) DTaP,Tdap,and Td Vaccines (2 - Td or Tdap) 07/16/2028 07/16/2018 (Refused), 06/11/2008, 06/11/2008 Pneumococcal Vaccine: 65+ Years Completed 05/24/2016, [...] 4:01 PM 05/23/2004 4:01 PM Care Teams [employer] Social [employer] Teacher Relationship Specialty Start Date End Date Redd Smiley DO [address] [place] [id number] PCP - General Internal Medicine 08/15/21 documented as of this encounter
[2024-01-11 07:23] LABS: Hematocrit (blood only) 39.4 % (37.0-47.0); Hemoglobin 13.2 g/dl (12.0-16.0); Immature Granulocytes # (auto) 0.01 K/uL (0.01-0.20); Immature Granulocytes % (auto) 0.2 %; Lymphocytes # (auto) 0.72 K/uL (1.20-3.40); Lymphocytes % (auto) 15.2 %; Mean Corpuscular Hemoglobin 30.5 pg (25.0-34.0); Mean Corpuscular Hgb Conc 33.5 g/dL (32.0-36.0); Mean Platelet Volume 10.6 fL (9.4-12.4); Monocytes # (auto) 0.33 K/uL (0.11-0.59); Monocytes % (auto) 6.9 %; Neutrophils # (auto) 3.69 K/uL (1.40-6.50); Neutrophils % (auto) 77.7 %; Platelet Count 126 K/uL (130-400); RDW Coefficient of Variation 13.2 % (11.5-14.5); RDW Standard Deviation 43.1 fL (36.4-46.3); Red Blood Count 4.33 M/uL (4.20-5.40); White Blood Count 4.75 K/ul (4.8-10.8)
[2024-01-11 07:42] LABS: Albumin Globulin Ratio 0.9 (0.9-2); Albumin Level 3.3 gm/dl (3.4-5.0); BUN Creatinine Ratio 19.4 (10-20); Bilirubin,Total 0.7 mg/dl (0.2-1.0); Calcium 8.7 mg/dl (8.6-10.3); Creatinine Clr Calc Pharmacy 66.4 ml/min; Est GFR (African American) 92.7 ml/min; Est GFR (Non-African American) 79.9 ml/min; Globulin 3.6 gm/dl (2.5-4.0); Magnesium 1.6 mg/dl (1.7-2.4); Phosphorus 3.1 mg/dl (2.5-4.9); Potassium 3.7 mmol/L (3.5-5.1); Total Protein 6.9 gm/dl (6.0-8.3)
[2024-01-11] MEDS: FLUoxetine HCL 20 MG CAP PO SCH (09:34)
[2024-01-11] MEDS: MULTIVITAMIN TAB PO SCH (09:35)
[2024-01-11] MEDS: METOPROLOL SUCC 50MG EXT REL TAB PO SCH (09:35)
[2024-01-11] MEDS: cefTRIAXone SODIUM 2,000 MG in DEXTROSE 5 % MINI-B 50 ML IV SCH (12:44)
[2024-01-11] MEDS ORDERED: IPRATROPIUM BROMIDE NEB SOLN 0.02% 0.5MG/2.5ML VIAL INH PRN (13:17)
[2024-01-11] MEDS ORDERED: LEVALBUTEROL 1.25 MG/3 ML NEB NEB PRN (13:17)
--- NOTE | 2024-01-11 14:38 | Hospitalist Progress Note ---
Date of Service January 11, 2024 Assessment & Plan (1) Influenza: Plan: Patient is 88 year old female with PMH HTN, dyslipidemia, atrial fibrillation anticoagulated on Eliquis, anxiety, GERD presented to ER with complaint of cough and confusion x 1 week. In ER afebrile, pulse 90s to low 100s BP 165/89, 95% on room air. No leukocytosis. + Influenza B on respiratory bio fire panel. Lactate: 2.4 -->1.4 Given 500 mL NSS Give 1 dose Solu-Medrol now We will hold on Tamiflu since patient onset of symptoms 5 days ago Supplemental oxygen as needed Xopenex nebs to try to avoid tachycardia Incentive spirometer, flutter valve, Mucinex Clinically much better today and has minimal cough without any other respiratory symptoms Saturating normally on room (2) UTI (urinary tract infection): Plan: UA: 3+ leuk esterase, + nitrate, > 30 WBC, 10-20 epithelial, 1+ bacteria Possible UTI Urine culture, blood cultures pending In ER given Rocephin Blood cultures have been negative but urine culture is growing gram-negative bacilli Further identification is pending and in the meantime we will continue current antibiotic with intravenous ceftriaxone (3) Metabolic encephalopathy: Plan: Secondary to UTI and flu Clinically better and seems to back to her baseline (4) Weakness: Plan: Will get PT and OT evaluation (5) Ambulatory dysfunction: Plan: Metabolic encephalopathy, generalized weakness and ambulatory dysfunction likely secondary to underlying influenza and possible UTI Treatment as above PT/OT eval (6) Permanent atrial fibrillation: Plan: Heart rates variable in ER from 90s to low 100s Give patient's home metoprolol dose now Monitor may need to give additional metoprolol to tartrate as needed Continue Eliquis Patient was previously on digoxin however reports was not on discharge summary from rehab so have not been giving it to her If continued A-fib RVR consider cardiology consult Rate seems to be controlled but still remains around 100 (7) HLD (hyperlipidemia): Plan: Continue atorvastatin (8) Anxiety: Plan: Continue fluoxetine DVT Prophylaxis Eliquis DNR/DNI as per discussion with patient and patient's daugther Follows with Dr Smiley for routine care Admission and Anticipated Discharge Date Admission Date: January 10, 2024 Subjective 01/11/2024 The patient was seen and examined in telemetry unit She has been feeling much better and seems to be at her baseline Has minimal cough but no other respiratory/cardiac symptoms Tachycardia is resolving Review of Systems Review of Systems: All systems reviewed and are unremarkable except as noted below Physical Exam Physical Exam: Sitting at the edge of the bed without any acute distress Constitutional: + ill appearing and average body habitus Eyes: PERRL, conjunctivae normal, anicteric sclerae ENMT: external ear and nose normal, oropharynx normal Neck: trachea midline, no thyromegaly Respiratory: no respiratory distress Auscultation: + diminished lung sounds and + crackles (Minimal crackles at the bases) Cardiovascular: Rate/Rhythm: + tachycardic and + irregularly irregular Heart Sounds: normal S1, normal S2 and + murmur (2/6 ESM over precordium) Gastrointestinal (Abdomen): Inspection/Auscultation: normal bowel sounds; abdomen not distended Percussion/Palpation: abdomen soft; abdomen nontender Musculoskeletal: No acute arthritis involving any of the joint Neurologic: normal touch/pain/proprioception and moves all extremities; no focal motor deficits Remains generally weak Results & Data Results & Data Vital Signs (Past 12 Hours) Vital Signs Temp Pulse Pulse Resp BP Pulse Ox O2 Del Method 01/11/24 11:36 36.4 C L 108 H 18 109/71 95 Room Air 01/11/24 11:02 Room Air 01/11/24 08:07 96 H 01/11/24 07:59 36.4 C L 108 H 18 137/75 98 Room Air 01/11/24 07:00 79 16 92 Room Air 01/11/24 02:39 36.6 C 110 H 18 122/84 95 Room Air Laboratory Results Short CBC 01/11/24 Range/Units 06:44 WBC 4.75 L (4.8-10.8) K/ul Hgb 13.2 (12.0-16.0) g/dl Hct 39.4 (37.0-47.0) % Plt Count 126 L (130-400) K/uL BMP 01/11/24 06:44 Sodium 141 Potassium 3.7 Chloride 106 Carbon Dioxide 28 BUN 12 Creatinine 0.62 Glucose 154 H Calcium 8.7 Liver Function 01/11/24 Range/Units 06:44 Total Bilirubin 0.7 (0.2-1.0) mg/dl AST 54 H (13-39) U/L ALT 40 (7-52) U/L Alkaline Phosphatase 78 (34-104) U/L Albumin 3.3 L (3.4-5.0) gm/dl Medications Administered Current Inpatient Medications Acetaminophen (Acetaminophen 325 Mg Tab) 650 mg PO Q4H PRN PRN Reason: Pain or Fever Stop: 02/09/24 17:08 Apixaban (Apixaban 2.5 Mg Tab) 2.5 mg PO BID MILLY Stop: 02/09/24 20:59 Last Admin: 01/11/24 09:34 Dose: 2.5 mg Atorvastatin Calcium (Atorvastatin 10 Mg Tab) 10 mg PO HS MILLY Stop: 02/09/24 20:59 Last Admin: 01/10/24 20:09 Dose: 10 mg Fluoxetine HCl (Fluoxetine Hcl 20 Mg Cap) 20 mg PO QAM MILLY Stop: 02/10/24 08:59 Last Admin: 01/11/24 09:34 Dose: 20 mg Guaifenesin (Guaifenesin 600 Mg Tabcr) 1,200 mg PO Q12 MILLY Stop: 02/09/24 20:59 Last Admin: 01/11/24 09:35 Dose: 1,200 mg Ceftriaxone Sodium 2,000 mg/ (Dextrose) 50 mls @ 100 mls/hr IV Q24H [facility]; Protocol Stop: 01/16/24 12:59 Last Infusion: 01/11/24 13:14 Dose: Infused Ipratropium [place] (Ipratropium [place] Neb Soln 0.02% 0.5mg/2.5ml Vial) 0.5 mg INH Q6R PRN PRN Reason: Wheezing Stop: 02/09/24 17:08 Levalbuterol HCl (Levalbuterol 1.25 Mg/3 Ml Neb) 1.25 mg NEB Q6R PRN PRN Reason: Wheezing Stop: 02/09/24 17:08 Metoprolol Succinate (Metoprolol Succ 50mg Ext Rel Tab) 100 mg PO BID MILLY Stop: 02/10/24 08:59 Last Admin: 01/11/24 09:35 Dose: 100 mg Multivitamins (Multivitamin Tab) 1 tab PO DAILY MILLY Stop: 02/10/24 08:59 Last Admin: 01/11/24 09:35 Dose: 1 tab Ondansetron HCl (Ondansetron Inj 2 Mg/Ml 2 Ml Vial) 4 mg IV Q6H PRN PRN Reason: Nausea Stop: 02/09/24 17:08 Polyethylene Glycol (Polyethylene (Miralax) 17 Gm Pack) 17 gm PO DAILY PRN PRN Reason: Constipation Stop: 02/09/24 17:08
[2024-01-12 07:46] LABS: Basophils # (auto) 0.03 K/uL (0.00-0.20); Basophils % (auto) 0.3 %; Eosinophils # (auto) 0.01 K/uL (0.00-0.50); Eosinophils % (auto) 0.1 %; Hematocrit (blood only) 40.9 % (37.0-47.0); Hemoglobin 13.7 g/dl (12.0-16.0); Immature Granulocytes # (auto) 0.05 K/uL (0.01-0.20); Immature Granulocytes % (auto) 0.5 %; Lymphocytes # (auto) 1.33 K/uL (1.20-3.40); Lymphocytes % (auto) 13.5 %; Mean Corpuscular Hemoglobin 30.9 pg (25.0-34.0); Mean Corpuscular Hgb Conc 33.5 g/dL (32.0-36.0); Mean Corpuscular Volume 92.1 fL (80.0-100.0); Mean Platelet Volume 10.3 fL (9.4-12.4); Monocytes # (auto) 0.73 K/uL (0.11-0.59); Monocytes % (auto) 7.4 %; Neutrophils # (auto) 7.67 K/uL (1.40-6.50); Neutrophils % (auto) 78.2 %; Platelet Count 152 K/uL (130-400); RDW Coefficient of Variation 13.3 % (11.5-14.5); RDW Standard Deviation 45.1 fL (36.4-46.3); Red Blood Count 4.44 M/uL (4.20-5.40); White Blood Count 9.82 K/ul (4.8-10.8)
[2024-01-12 08:05] LABS: BUN Creatinine Ratio 26.9 (10-20); Calcium 8.8 mg/dl (8.6-10.3); Creatinine Clr Calc Pharmacy 48.9 ml/min; Est GFR (African American) 78.1 ml/min; Est GFR (Non-African American) 67.4 ml/min; Magnesium 1.6 mg/dl (1.7-2.4); Potassium 4.4 mmol/L (3.5-5.1)
--- NOTE | 2024-01-12 08:28 | Electrocardiogram Report ---
Test Reason : Blood Pressure : / mmHG Vent. Rate : 089 BPM Atrial Rate : 000 BPM P-R Int : 000 ms QRS Dur : 072 ms QT Int : 382 ms P-R-T Axes : 000 -02 019 degrees QTc Int : 464 ms Atrial fibrillation Nonspecific ST abnormality Abnormal ECG When compared with ECG of 20-NOV-2023 07:47, Nonspecific T wave abnormality, improved in Inferior leads T wave inversion less evident in Anterolateral leads Confirmed by Addison Gooden ([id number]) on 01/12/2024 8:28:31 AM Referred By: REFERRED SELF Confirmed By:Addison Gooden
[2024-01-12] MEDS: CEFEPIME 2,000 MG in SYRINGE 0 ML IV SCH (12:56)
--- NOTE | 2024-01-12 14:08 | Hospitalist Progress Note ---
Date of Service January 12, 2024 Assessment & Plan (1) Influenza: Plan: Patient is 88 year old female with PMH HTN, dyslipidemia, atrial fibrillation anticoagulated on Eliquis, anxiety, GERD presented to ER with complaint of cough and confusion x 1 week. In ER afebrile, pulse 90s to low 100s BP 165/89, 95% on room air. No leukocytosis. + Influenza B on respiratory bio fire panel. Lactate: 2.4 -->1.4 Given 500 mL NSS Give 1 dose Solu-Medrol now We will hold on Tamiflu since patient onset of symptoms 5 days ago Supplemental oxygen as needed Xopenex nebs to try to avoid tachycardia Incentive spirometer, flutter valve, Mucinex Clinically much better today and has minimal cough without any other respiratory symptoms Saturating normally on room (2) UTI (urinary tract infection): Plan: UA: 3+ leuk esterase, + nitrate, > 30 WBC, 10-20 epithelial, 1+ bacteria Possible UTI Urine culture, blood cultures pending In ER given Rocephin Blood cultures have been negative but urine culture is growing gram-negative bacilli Further identification is pending and in the meantime we will continue current antibiotic with intravenous ceftriaxone Urine culture is growing Pseudomonas Ceftriaxone has been discontinued and started with intravenous cefepime Will get PT OT evaluation and possible discharge tomorrow on cefepime (3) Metabolic encephalopathy: Plan: Secondary to UTI and flu Clinically better and seems to back to her baseline (4) Weakness: Plan: Will get PT and OT evaluation (5) Ambulatory dysfunction: Plan: Metabolic encephalopathy, generalized weakness and ambulatory dysfunction likely secondary to underlying influenza and possible UTI Treatment as above PT/OT eval (6) Permanent atrial fibrillation: Plan: Heart rates variable in ER from 90s to low 100s Give patient's home metoprolol dose now Monitor may need to give additional metoprolol to tartrate as needed Continue Eliquis Patient was previously on digoxin however reports was not on discharge summary from rehab so have not been giving it to her If continued A-fib RVR consider cardiology consult Rate seems to be controlled but still remains around 100 No cardiac symptoms (7) HLD (hyperlipidemia): Plan: Continue atorvastatin (8) Anxiety: Plan: Continue fluoxetine DVT Prophylaxis Eliquis DNR/DNI as per discussion with patient and patient's daugther Follows with Dr Smiley for routine care Admission and Anticipated Discharge Date Admission Date: January 10, 2024 Subjective 01/11/2024 The patient was seen and examined in telemetry unit She has been feeling much better and seems to be at her baseline Has minimal cough but no other respiratory/cardiac symptoms Tachycardia is resolving 01/12/2024 The patient was seen and examined in telemetry unit She was noted to be minimally confused last evening but has been feeling much better this morning Denies any symptoms No fever and or chills Urine culture grew Pseudomonas Review of Systems Review of Systems: All systems reviewed and are unremarkable except as noted below Physical Exam Physical Exam: Sitting at the edge of the bed without any acute distress Constitutional: + ill appearing and average body habitus Eyes: PERRL, conjunctivae normal, anicteric sclerae ENMT: external ear and nose normal, oropharynx normal Neck: trachea midline, no thyromegaly Respiratory: no respiratory distress Auscultation: + diminished lung sounds and + crackles (Minimal crackles at the bases) Cardiovascular: Rate/Rhythm: + tachycardic and + irregularly irregular Heart Sounds: normal S1, normal S2 and + murmur (2/6 ESM over precordium) Gastrointestinal (Abdomen): Inspection/Auscultation: normal bowel sounds; abdomen not distended Percussion/Palpation: abdomen soft; abdomen nontender Musculoskeletal: No acute arthritis involving any of the joint Neurologic: normal touch/pain/proprioception and moves all extremities; no focal motor deficits Lymphatic: no cervical or axillary lymphadenopathy Results & Data Results & Data Vital Signs (Past 12 Hours) Vital Signs Temp Pulse Pulse Resp BP BP Pulse Ox 01/12/24 11:14 36.6 C 100 H 18 127/80 96 01/12/24 11:06 01/12/24 07:44 117 H 20 159/87 H 93 01/12/24 07:01 104 H 01/12/24 03:53 36.4 C L 108 H 18 146/90 H 93 O2 Del Method 01/12/24 11:14 Room Air 01/12/24 11:06 Room Air 01/12/24 07:44 Room Air 01/12/24 07:01 01/12/24 03:53 Room Air Laboratory Results Short CBC 01/12/24 Range/Units 07:06 WBC 9.82 (4.8-10.8) K/ul Hgb 13.7 (12.0-16.0) g/dl Hct 40.9 (37.0-47.0) % Plt Count 152 (130-400) K/uL BMP 01/12/24 07:06 Sodium 141 Potassium 4.4 Chloride 104 Carbon Dioxide 32 BUN 21 Creatinine 0.78 Glucose 104 H Calcium 8.8 Medications Administered Current Inpatient Medications Acetaminophen (Acetaminophen 325 Mg Tab) 650 mg PO Q4H PRN PRN Reason: Pain or Fever Stop: 02/09/24 17:08 Apixaban (Apixaban 2.5 Mg Tab) 2.5 mg PO BID MILLY Stop: 02/09/24 20:59 Last Admin: 01/12/24 09:34 Dose: 2.5 mg Atorvastatin Calcium (Atorvastatin 10 Mg Tab) 10 mg PO HS MILLY Stop: 02/09/24 20:59 Last Admin: 01/11/24 20:25 Dose: 10 mg Fluoxetine HCl (Fluoxetine Hcl 20 Mg Cap) 20 mg PO QAM MILLY Stop: 02/10/24 08:59 Last Admin: 01/12/24 09:34 Dose: 20 mg Guaifenesin (Guaifenesin 600 Mg Tabcr) 1,200 mg PO Q12 MILLY Stop: 02/09/24 20:59 Last Admin: 01/12/24 09:35 Dose: 1,200 mg Cefepime HCl 2,000 mg/ Syringe 20 mls @ 5 mls/min IV Q12H MILLY Stop: 01/22/24 11:59 Last Admin: 01/12/24 12:56 Dose: 5 mls/min Ipratropium [place] (Ipratropium [place] Neb Soln 0.02% 0.5mg/2.5ml Vial) 0.5 mg INH Q6R PRN PRN Reason: Wheezing Stop: 02/09/24 17:08 Levalbuterol HCl (Levalbuterol 1.25 Mg/3 Ml Neb) 1.25 mg NEB Q6R PRN PRN Reason: Wheezing Stop: 02/09/24 17:08 Metoprolol Succinate (Metoprolol Succ 50mg Ext Rel Tab) 100 mg PO BID MILLY Stop: 02/10/24 08:59 Last Admin: 01/12/24 09:35 Dose: 100 mg Multivitamins (Multivitamin Tab) 1 tab PO DAILY MILLY Stop: 02/10/24 08:59 Last Admin: 01/12/24 09:35 Dose: 1 tab Ondansetron HCl (Ondansetron Inj 2 Mg/Ml 2 Ml Vial) 4 mg IV Q6H PRN PRN Reason: Nausea Stop: 02/09/24 17:08 Polyethylene Glycol (Polyethylene (Miralax) 17 Gm Pack) 17 gm PO DAILY PRN PRN Reason: Constipation Stop: 02/09/24 17:08
[2024-01-12] MEDS: MAGNESIUM SULFATE / D5W 1 GM/100 ML BAG IV ONE (17:20)
[2024-01-13 06:43] LABS: Basophils # (auto) 0.04 K/uL (0.00-0.20); Basophils % (auto) 0.6 %; Eosinophils # (auto) 0.03 K/uL (0.00-0.50); Eosinophils % (auto) 0.4 %; Hematocrit (blood only) 40.4 % (37.0-47.0); Hemoglobin 13.2 g/dl (12.0-16.0); Immature Granulocytes # (auto) 0.01 K/uL (0.01-0.20); Immature Granulocytes % (auto) 0.1 %; Lymphocytes # (auto) 1.35 K/uL (1.20-3.40); Mean Corpuscular Hemoglobin 30.3 pg (25.0-34.0); Mean Corpuscular Hgb Conc 32.7 g/dL (32.0-36.0); Mean Corpuscular Volume 92.9 fL (80.0-100.0); Mean Platelet Volume 10.7 fL (9.4-12.4); Monocytes # (auto) 0.75 K/uL (0.11-0.59); Monocytes % (auto) 10.6 %; Neutrophils # (auto) 4.91 K/uL (1.40-6.50); Neutrophils % (auto) 69.3 %; Platelet Count 148 K/uL (130-400); RDW Coefficient of Variation 13.3 % (11.5-14.5); RDW Standard Deviation 45.4 fL (36.4-46.3); Red Blood Count 4.35 M/uL (4.20-5.40); White Blood Count 7.09 K/ul (4.8-10.8)
[2024-01-13 07:02] LABS: Calcium 8.7 mg/dl (8.6-10.3); Creatinine Clr Calc Pharmacy 60.8 ml/min; Est GFR (African American) 92.2 ml/min; Est GFR (Non-African American) 79.5 ml/min; Potassium 3.8 mmol/L (3.5-5.1)
--- NOTE | 2024-01-13 14:26 | Hospitalist Progress Note ---
Date of Service January 13, 2024 Assessment & Plan (1) Influenza: Plan: Patient is 88 year old female with PMH HTN, dyslipidemia, atrial fibrillation anticoagulated on Eliquis, anxiety, GERD presented to ER with complaint of cough and confusion x 1 week. In ER afebrile, pulse 90s to low 100s BP 165/89, 95% on room air. No leukocytosis. + Influenza B on respiratory bio fire panel. Lactate: 2.4 -->1.4 Given 500 mL NSS Give 1 dose Solu-Medrol now We will hold on Tamiflu since patient onset of symptoms 5 days ago Supplemental oxygen as needed Xopenex nebs to try to avoid tachycardia Incentive spirometer, flutter valve, Mucinex Clinically much better today and has minimal cough without any other respiratory symptoms Saturating normally on room No signs and or symptoms of influenza (2) UTI (urinary tract infection): Plan: UA: 3+ leuk esterase, + nitrate, > 30 WBC, 10-20 epithelial, 1+ bacteria Possible UTI Urine culture, blood cultures pending In ER given Rocephin Blood cultures have been negative but urine culture is growing gram-negative bacilli Further identification is pending and in the meantime we will continue current antibiotic with intravenous ceftriaxone Urine culture is growing Pseudomonas Ceftriaxone has been discontinued and started with intravenous cefepime Will get PT OT evaluation and possible discharge tomorrow on cefepime Will continue with intravenous cefepime to finish the course of antibiotic for a total of 7-day (3) Metabolic encephalopathy: Plan: Secondary to UTI and flu Clinically better and seems to back to her baseline (4) Weakness: Plan: Will get PT and OT evaluation (5) Ambulatory dysfunction: Plan: Metabolic encephalopathy, generalized weakness and ambulatory dysfunction likely secondary to underlying influenza and possible UTI Treatment as above PT/OT eval-recommended SNF (6) Permanent atrial fibrillation: Plan: Heart rates variable in ER from 90s to low 100s Give patient's home metoprolol dose now Monitor may need to give additional metoprolol to tartrate as needed Continue Eliquis Patient was previously on digoxin however reports was not on discharge summary from rehab so have not been giving it to her If continued A-fib RVR consider cardiology consult Rate seems to be controlled but still remains around 100 No cardiac symptoms (7) HLD (hyperlipidemia): Plan: Continue atorvastatin (8) Anxiety: Plan: Continue fluoxetine DVT Prophylaxis Eliquis DNR/DNI as per discussion with patient and patient's daugther Follows with Dr Smiley for routine care Admission and Anticipated Discharge Date Admission Date: January 10, 2024 Subjective 01/11/2024 The patient was seen and examined in telemetry unit She has been feeling much better and seems to be at her baseline Has minimal cough but no other respiratory/cardiac symptoms Tachycardia is resolving 01/12/2024 The patient was seen and examined in telemetry unit She was noted to be minimally confused last evening but has been feeling much better this morning Denies any symptoms No fever and or chills Urine culture grew Pseudomonas 01/13/2024 The patient was seen and examined in medical telemetry unit in presence of the daughter She has been feeling much better PT recommended rehab She is willing to go to rehab Review of Systems Review of Systems: All systems reviewed and are unremarkable except as noted below Physical Exam Physical Exam: Sitting at the edge of the bed without any acute distress Constitutional: + ill appearing and average body habitus Eyes: PERRL, conjunctivae normal, anicteric sclerae ENMT: external ear and nose normal, oropharynx normal Neck: trachea midline, no thyromegaly Respiratory: no respiratory distress Auscultation: + diminished lung sounds and + crackles (Minimal crackles at the bases) Cardiovascular: Rate/Rhythm: + tachycardic and + irregularly irregular Heart Sounds: normal S1, normal S2 and + murmur (2/6 ESM over precordium) Gastrointestinal (Abdomen): Inspection/Auscultation: normal bowel sounds; abdomen not distended Percussion/Palpation: abdomen soft; abdomen nontender Musculoskeletal: No acute arthritis involving any joint Neurologic: normal touch/pain/proprioception and moves all extremities; no focal motor deficits Lymphatic: no cervical or axillary lymphadenopathy Results & Data Results & Data Vital Signs (Past 12 Hours) Vital Signs Temp Pulse Resp BP Pulse Ox O2 Del Method 01/13/24 11:12 36.4 C L 94 H 14 117/61 95 Room Air 01/13/24 08:00 Room Air 01/13/24 07:42 36.4 C L 90 14 155/89 H 96 Room Air 01/13/24 03:52 36.6 C 104 H 16 125/72 95 Room Air Laboratory Results Short CBC 01/13/24 Range/Units 06:13 WBC 7.09 (4.8-10.8) K/ul Hgb 13.2 (12.0-16.0) g/dl Hct 40.4 (37.0-47.0) % Plt Count 148 (130-400) K/uL [facility] 01/13/24 06:13 Sodium 140 Potassium 3.8 Chloride 106 Carbon Dioxide 28 BUN 17 Creatinine 0.63 Glucose 99 Calcium 8.7 Medications Administered Current Inpatient Medications Acetaminophen (Acetaminophen 325 Mg Tab) 650 mg PO Q4H PRN PRN Reason: Pain or Fever Stop: 02/09/24 17:08 Apixaban (Apixaban 2.5 Mg Tab) 2.5 mg PO BID MILLY Stop: 02/09/24 20:59 Last Admin: 01/13/24 08:37 Dose: 2.5 mg Atorvastatin Calcium (Atorvastatin 10 Mg Tab) 10 mg PO HS MILLY Stop: 02/09/24 20:59 Last Admin: 01/12/24 22:24 Dose: 10 mg Fluoxetine HCl (Fluoxetine Hcl 20 Mg Cap) 20 mg PO QAM MILLY Stop: 02/10/24 08:59 Last Admin: 01/13/24 08:37 Dose: 20 mg Guaifenesin (Guaifenesin 600 Mg Tabcr) 1,200 mg PO Q12 MILLY Stop: 02/09/24 20:59 Last Admin: 01/13/24 08:36 Dose: 1,200 mg Cefepime HCl 2,000 mg/ Syringe 20 mls @ 5 mls/min IV Q12H MILLY Stop: 01/22/24 11:59 Last Admin: 01/13/24 12:31 Dose: 5 mls/min Ipratropium [place] (Ipratropium [place] Neb Soln 0.02% 0.5mg/2.5ml Vial) 0.5 mg INH Q6R PRN PRN Reason: Wheezing Stop: 02/09/24 17:08 Levalbuterol HCl (Levalbuterol 1.25 Mg/3 Ml Neb) 1.25 mg NEB Q6R PRN PRN Reason: Wheezing Stop: 02/09/24 17:08 Metoprolol Succinate (Metoprolol Succ 50mg Ext Rel Tab) 100 mg PO BID MILLY Stop: 02/10/24 08:59 Last Admin: 01/13/24 08:36 Dose: 100 mg Multivitamins (Multivitamin Tab) 1 tab PO DAILY MILLY Stop: 02/10/24 08:59 Last Admin: 01/13/24 08:37 Dose: 1 tab Ondansetron HCl (Ondansetron Inj 2 Mg/Ml 2 Ml Vial) 4 mg IV Q6H PRN PRN Reason: Nausea Stop: 02/09/24 17:08 Polyethylene Glycol (Polyethylene (Miralax) 17 Gm Pack) 17 gm PO DAILY PRN PRN Reason: Constipation Stop: 02/09/24 17:08
--- NOTE | 2024-01-14 06:57 | Electrocardiogram Report ---
Test Reason : Blood Pressure : / mmHG Vent. Rate : 102 BPM Atrial Rate : 091 BPM P-R Int : 000 ms QRS Dur : 072 ms QT Int : 390 ms P-R-T Axes : 000 005 139 degrees QTc Int : 508 ms Atrial fibrillation with rapid ventricular response Nonspecific ST and T wave abnormality Abnormal ECG When compared with ECG of 10-JAN-2024 11:27, (unconfirmed) Nonspecific T wave abnormality, worse in Anterolateral leads Confirmed by Addison Gooden ([id number]) on 01/14/2024 6:57:29 AM Referred By: REFERRED SELF Confirmed By:Addison Gooden
--- NOTE | 2024-01-14 15:08 | Hospitalist Progress Note ---
Date of Service January 14, 2024 Assessment & Plan (1) Influenza: Plan: Patient is 88 year old female with PMH HTN, dyslipidemia, atrial fibrillation anticoagulated on Eliquis, anxiety, GERD presented to ER with complaint of cough and confusion x 1 week. In ER afebrile, pulse 90s to low 100s BP 165/89, 95% on room air. No leukocytosis. + Influenza B on respiratory bio fire panel. Lactate: 2.4 -->1.4 Given 500 mL NSS Give 1 dose Solu-Medrol now We will hold on Tamiflu since patient onset of symptoms 5 days ago Supplemental oxygen as needed Xopenex nebs to try to avoid tachycardia Incentive spirometer, flutter valve, Mucinex Clinically much better today and has minimal cough without any other respiratory symptoms Saturating normally on room No signs and or symptoms of influenza (2) UTI (urinary tract infection): Plan: UA: 3+ leuk esterase, + nitrate, > 30 WBC, 10-20 epithelial, 1+ bacteria Possible UTI Urine culture, blood cultures pending In ER given Rocephin Blood cultures have been negative but urine culture is growing gram-negative bacilli Further identification is pending and in the meantime we will continue current antibiotic with intravenous ceftriaxone Urine culture is growing Pseudomonas Ceftriaxone has been discontinued and started with intravenous cefepime Will get PT OT evaluation and possible discharge tomorrow on cefepime Will continue with intravenous cefepime to finish the course of antibiotic for a total of 7-day No signs and or symptoms of UTI and has been on cefepime intravenously for Pseudomonas infection Will need to finish the course of IV antibiotic for a total of 7 days Will avoid giving any Cipro due to QT elongation/and other potential side effect (3) Metabolic encephalopathy: Plan: Secondary to UTI and flu Clinically better and seems to back to her baseline (4) Weakness: Plan: Will get PT and OT evaluation Weakness is improved with physical Will need to continue PT in a facility (5) Ambulatory dysfunction: Plan: Metabolic encephalopathy, generalized weakness and ambulatory dysfunction likely secondary to underlying influenza and possible UTI Treatment as above PT/OT eval-recommended SNF (6) Permanent atrial fibrillation: Plan: Heart rates variable in ER from 90s to low 100s Give patient's home metoprolol dose now Monitor may need to give additional metoprolol to tartrate as needed Continue Eliquis Patient was previously on digoxin however reports was not on discharge summary from rehab so have not been giving it to her If continued A-fib RVR consider cardiology consult Rate seems to be controlled but still remains around 100 No cardiac symptoms (7) HLD (hyperlipidemia): Plan: Continue atorvastatin (8) Anxiety: Plan: Continue fluoxetine DVT Prophylaxis Eliquis DNR/DNI as per discussion with patient and patient's daugther Follows with Dr Smiley for routine care Admission and Anticipated Discharge Date Admission Date: January 10, 2024 Subjective 01/11/2024 The patient was seen and examined in telemetry unit She has been feeling much better and seems to be at her baseline Has minimal cough but no other respiratory/cardiac symptoms Tachycardia is resolving 01/12/2024 The patient was seen and examined in telemetry unit She was noted to be minimally confused last evening but has been feeling much better this morning Denies any symptoms No fever and or chills Urine culture grew Pseudomonas 01/13/2024 The patient was seen and examined in medical telemetry unit in presence of the daughter She has been feeling much better PT recommended rehab She is willing to go to rehab 01/14/2024 The patient was seen and examined in medical telemetry unit She has been stable and waiting for placement Denies any symptoms Has been getting physical therapy Review of Systems Review of Systems: All systems reviewed and are unremarkable except as noted below Physical Exam Physical Exam: Sitting at the edge of the bed without any acute distress Constitutional: + ill appearing and average body habitus Eyes: PERRL, conjunctivae normal, anicteric sclerae ENMT: external ear and nose normal, oropharynx normal Neck: trachea midline, no thyromegaly Respiratory: no respiratory distress Auscultation: + diminished lung sounds and + crackles (Minimal crackles at the bases) Cardiovascular: Rate/Rhythm: + tachycardic and + irregularly irregular Heart Sounds: normal S1, normal S2 and + murmur (2/6 ESM over precordium) Gastrointestinal (Abdomen): Inspection/Auscultation: normal bowel sounds; abdomen not distended Percussion/Palpation: abdomen soft; abdomen nontender Musculoskeletal: No acute arthritis involving any of the joint Neurologic: normal touch/pain/proprioception and moves all extremities; no focal motor deficits Lymphatic: no cervical or axillary lymphadenopathy Results & Data Results & Data Vital Signs (Past 12 Hours) Vital Signs Temp Pulse Resp BP BP Pulse Ox O2 Del Method 01/14/24 11:14 36.6 C 90 18 110/68 96 Room Air 01/14/24 08:00 Room Air 01/14/24 07:28 36.6 C 67 18 139/71 97 Room Air 01/14/24 04:09 36.4 C L 97 H 20 146/80 H 95 Room Air Medications Administered Current Inpatient Medications Acetaminophen (Acetaminophen 325 Mg Tab) 650 mg PO Q4H PRN PRN Reason: Pain or Fever Stop: 02/09/24 17:08 Apixaban (Apixaban 2.5 Mg Tab) 2.5 mg PO BID MILLY Stop: 02/09/24 20:59 Last Admin: 01/14/24 10:24 Dose: 2.5 mg Atorvastatin Calcium (Atorvastatin 10 Mg Tab) 10 mg PO HS MILLY Stop: 02/09/24 20:59 Last Admin: 01/13/24 22:06 Dose: 10 mg Fluoxetine HCl (Fluoxetine Hcl 20 Mg Cap) 20 mg PO QAM MILLY Stop: 02/10/24 08:59 Last Admin: 01/14/24 10:23 Dose: 20 mg Guaifenesin (Guaifenesin 600 Mg Tabcr) 1,200 mg PO Q12 MILLY Stop: 02/09/24 20:59 Last Admin: 01/14/24 10:23 Dose: 1,200 mg Cefepime HCl 2,000 mg/ Syringe 20 mls @ 5 mls/min IV Q12H MILLY Stop: 01/22/24 11:59 Last Admin: 01/14/24 12:21 Dose: 5 mls/min Ipratropium [place] (Ipratropium [place] Neb Soln 0.02% 0.5mg/2.5ml Vial) 0.5 mg INH Q6R PRN PRN Reason: Wheezing Stop: 02/09/24 17:08 Levalbuterol HCl (Levalbuterol 1.25 Mg/3 Ml Neb) 1.25 mg NEB Q6R PRN PRN Reason: Wheezing Stop: 02/09/24 17:08 Metoprolol Succinate (Metoprolol Succ 50mg Ext Rel Tab) 100 mg PO BID MILLY Stop: 02/10/24 08:59 Last Admin: 01/14/24 10:24 Dose: 100 mg Multivitamins (Multivitamin Tab) 1 tab PO DAILY MILLY Stop: 02/10/24 08:59 Last Admin: 01/14/24 10:24 Dose: 1 tab Ondansetron HCl (Ondansetron Inj 2 Mg/Ml 2 Ml Vial) 4 mg IV Q6H PRN PRN Reason: Nausea Stop: 02/09/24 17:08 Polyethylene Glycol (Polyethylene (Miralax) 17 Gm Pack) 17 gm PO DAILY PRN PRN Reason: Constipation Stop: 02/09/24 17:08
[2024-01-15 06:31] LABS: Basophils # (auto) 0.06 K/uL (0.00-0.20); Basophils % (auto) 1.1 %; Eosinophils # (auto) 0.06 K/uL (0.00-0.50); Eosinophils % (auto) 1.1 %; Hematocrit (blood only) 41.6 % (37.0-47.0); Hemoglobin 13.9 g/dl (12.0-16.0); Immature Granulocytes # (auto) 0.03 K/uL (0.01-0.20); Immature Granulocytes % (auto) 0.6 %; Lymphocytes # (auto) 1.42 K/uL (1.20-3.40); Lymphocytes % (auto) 26.1 %; Mean Corpuscular Hemoglobin 30.4 pg (25.0-34.0); Mean Corpuscular Hgb Conc 33.4 g/dL (32.0-36.0); Mean Platelet Volume 10.7 fL (9.4-12.4); Neutrophils # (auto) 3.27 K/uL (1.40-6.50); Neutrophils % (auto) 60.1 %; Platelet Count 188 K/uL (130-400); RDW Coefficient of Variation 13.2 % (11.5-14.5); RDW Standard Deviation 43.8 fL (36.4-46.3); Red Blood Count 4.57 M/uL (4.20-5.40); White Blood Count 5.44 K/ul (4.8-10.8)
[2024-01-15 08:30] LABS: BUN Creatinine Ratio 27.7 (10-20); Creatinine Clr Calc Pharmacy 57.3 ml/min; Est GFR (African American) 91.2 ml/min; Est GFR (Non-African American) 78.7 ml/min; Potassium 3.7 mmol/L (3.5-5.1)
[2024-01-15] MEDS: ACETAMINOPHEN 325 MG TAB PO PRN (08:57)
--- NOTE | 2024-01-15 15:58 | Hospitalist Progress Note ---
Date of Service January 15, 2024 Assessment & Plan (1) Influenza: Plan: Patient is 88 year old female with PMH HTN, dyslipidemia, atrial fibrillation anticoagulated on Eliquis, anxiety, GERD presented to ER with complaint of cough and confusion x 1 week. Influenza type B BioFire positive for influenza type B --CXR:No significant change compared to the prior study. No acute process. Nebs as needed Conservative management Saturating well on room air Incentive spirometer, flutter valve (2) UTI (urinary tract infection): Plan: Urine culture grew Pseudomonas Blood cultures negative to date Continue IV cefepime Avoid QTc prolonging medications (3) Metabolic encephalopathy: Plan: Secondary to UTI and flu Mental status seem to be bacterial Reorient frequently to minimize delirium Monitor (4) Weakness: Plan: Continue PT OT (5) Ambulatory dysfunction: Plan: Secondary to illness, comorbidities PT/OT eval-recommended SNF (6) Permanent atrial fibrillation: Plan: Continue metoprolol On Eliquis for anticoagulation Patient was previously on digoxin however reports was not on discharge summary from rehab so have not been giving it to her (Per prior provider) Monitor (7) HLD (hyperlipidemia): Plan: Continue atorvastatin (8) Anxiety: Plan: Continue fluoxetine DVT Px Eliquis Code Status DNR/DNI Disposition Rehab as able Admission and Anticipated Discharge Date Admission Date: January 10, 2024 Subjective Patient is seen and examined at bedside States feeling well today Offers no new complaints Sitting in chair during my encounter Denies any chest pain, dyspnea, dizziness, nausea, vomiting, abdominal pain Waiting for rehab placement No other complaints Review of Systems Review of Systems: All systems reviewed & are unremarkable except as noted in Subjective Physical Exam Physical Exam: Physical Exam: Vitals signs as noted above General Appearance: Thin, frail, elderly, no apparent distress Head: normocephalic, Atraumatic Eyes: normal inspection, EOMI Neck: supple, Trachea midline Respiratory/Chest: Decreased breath sounds, CTA, No accessory muscle use Cardiovascular: Irregularly irregular, + murmur Abdomen/GI:Soft, Non tender, Bowel sounds present Extremities/Musculoskeletal:normal inspection, no edema Neurologic/Psych:AAOX3, grossly no focal neurological deficits Skin: normal color, warm Results & Data Results & Data Vital Signs (Past 12 Hours) Vital Signs Temp Pulse Pulse Resp BP Pulse Ox O2 Del Method 01/15/24 14:56 36.6 C 98 H 18 128/72 96 Room Air 01/15/24 13:59 81 01/15/24 11:18 36.5 C 84 18 104/62 94 Room Air 01/15/24 07:08 36.5 C 96 H 18 154/83 H 95 Room Air 01/15/24 05:50 90 Laboratory Results Short CBC 01/15/24 Range/Units 05:44 WBC 5.44 (4.8-10.8) K/ul Hgb 13.9 (12.0-16.0) g/dl Hct 41.6 (37.0-47.0) % Plt Count 188 (130-400) K/uL BMP 01/15/24 05:44 Sodium 140 Potassium 3.7 Chloride 106 Carbon Dioxide 26 BUN 18 Creatinine 0.65 Glucose 100 H Calcium 9.0
[2024-01-16 06:32] LABS: BUN Creatinine Ratio 29.4 (10-20); Calcium 8.9 mg/dl (8.6-10.3); Creatinine Clr Calc Pharmacy 54.7 ml/min; Est GFR (African American) 89.9 ml/min; Est GFR (Non-African American) 77.6 ml/min; Magnesium 1.8 mg/dl (1.7-2.4); Potassium 3.9 mmol/L (3.5-5.1)
--- NOTE | 2024-01-16 16:36 | Hospitalist Progress Note ---
Date of Service January 16, 2024 Assessment & Plan (1) Influenza: Plan: Patient is 88 year old female with PMH HTN, dyslipidemia, atrial fibrillation anticoagulated on Eliquis, anxiety, GERD presented to ER with complaint of cough and confusion x 1 week. Influenza type B BioFire positive for influenza type B --CXR:No significant change compared to the prior study. No acute process. Nebs as needed Conservative management Saturating well on room air Incentive spirometer, flutter valve Clinically stable for discharge Waiting for rehab placement (2) UTI (urinary tract infection): Plan: Urine culture grew Pseudomonas Blood cultures negative to date Continue IV cefepime Avoid QTc prolonging medications (3) Metabolic encephalopathy: Plan: Secondary to UTI and flu Mental status seem to be bacterial Reorient frequently to minimize delirium Monitor (4) Weakness: Plan: Continue PT OT (5) Ambulatory dysfunction: Plan: Secondary to illness, comorbidities PT/OT eval-recommended SNF (6) Permanent atrial fibrillation: Plan: Continue metoprolol On Eliquis for anticoagulation Patient was previously on digoxin however reports was not on discharge summary from rehab so have not been giving it to her (Per prior provider) Monitor (7) HLD (hyperlipidemia): Plan: Continue atorvastatin (8) Anxiety: Plan: Continue fluoxetine DVT Px Eliquis Code Status DNR/DNI Disposition Rehab when accepted Admission and Anticipated Discharge Date Admission Date: January 10, 2024 Subjective Patient is seen and examined at bedside States having mild cough but otherwise no complaints Waiting for rehab placement Denies any chest pain, dyspnea, dizziness, nausea, vomiting, abdominal pain Saturating well on room air Review of Systems Review of Systems: All systems reviewed & are unremarkable except as noted in Subjective Physical Exam Physical Exam: Physical Exam: Vitals signs as noted above General Appearance: Thin, frail, elderly, no apparent distress Head: normocephalic, Atraumatic Eyes: normal inspection, EOMI Neck: supple, Trachea midline Respiratory/Chest: Decreased breath sounds, CTA, No accessory muscle use Cardiovascular: Irregularly irregular, + murmur Abdomen/GI:Soft, Non tender, Bowel sounds present Extremities/Musculoskeletal:normal inspection, no edema Neurologic/Psych:AAOX3, grossly no focal neurological deficits Skin: normal color, warm Results & Data Results & Data Vital Signs (Past 12 Hours) Vital Signs Temp Pulse Resp BP Pulse Ox O2 Del Method 01/16/24 15:45 36.9 C 119 H 18 119/76 94 Room Air 01/16/24 12:02 36.6 C 83 18 99/64 L 96 Room Air 01/16/24 07:22 36.7 C 85 18 148/80 H 94 Room Air Laboratory Results [facility] 01/16/24 05:40 Sodium 140 Potassium 3.9 Chloride 106 Carbon Dioxide 26 BUN 20 Creatinine 0.68 Glucose 107 H Calcium 8.9
[2024-01-17 05:35] LABS: Hematocrit (blood only) 42.4 % (37.0-47.0); Hemoglobin 14.5 g/dl (12.0-16.0); Mean Corpuscular Hemoglobin 30.8 pg (25.0-34.0); Mean Corpuscular Hgb Conc 34.2 g/dL (32.0-36.0); Mean Platelet Volume 10.5 fL (9.4-12.4); Platelet Count 228 K/uL (130-400); RDW Coefficient of Variation 13.1 % (11.5-14.5); RDW Standard Deviation 43.1 fL (36.4-46.3); Red Blood Count 4.71 M/uL (4.20-5.40); White Blood Count 6.29 K/ul (4.8-10.8)
[2024-01-17 06:17] LABS: BUN Creatinine Ratio 29.2 (10-20); Calcium 9.2 mg/dl (8.6-10.3); Creatinine Clr Calc Pharmacy 51.2 ml/min; Est GFR (African American) 86.1 ml/min; Est GFR (Non-African American) 74.3 ml/min; Magnesium 1.8 mg/dl (1.7-2.4); Potassium 3.8 mmol/L (3.5-5.1)
--- NOTE | 2024-01-17 11:39 | Hospitalist Progress Note ---
Date of Service January 17, 2024 Assessment & Plan (1) Influenza: Plan: Patient is 88 year old female with PMH HTN, dyslipidemia, atrial fibrillation anticoagulated on Eliquis, anxiety, GERD presented to ER with complaint of cough and confusion x 1 week. Influenza type B BioFire positive for influenza type B --CXR:No significant change compared to the prior study. No acute process. Nebs as needed Conservative management Saturating well on room air Incentive spirometer, flutter valve Rehab today (2) UTI (urinary tract infection): Plan: Urine culture grew Pseudomonas Blood cultures negative to date Continue IV cefepime day#5/7 Avoid QTc prolonging medications (3) Metabolic encephalopathy: Plan: Secondary to UTI and flu Mental status seem to be bacterial Reorient frequently to minimize delirium Monitor (4) Weakness: Plan: Continue PT OT (5) Ambulatory dysfunction: Plan: Secondary to illness, comorbidities PT/OT eval-recommended SNF (6) Permanent atrial fibrillation: Plan: Continue metoprolol On Eliquis for anticoagulation Patient was previously on digoxin however reports was not on discharge summary from rehab so have not been giving it to her (Per prior provider) Monitor (7) HLD (hyperlipidemia): Plan: Continue atorvastatin (8) Anxiety: Plan: Continue fluoxetine DVT Px Eliquis Code Status DNR/DNI Disposition Rehab Admission and Anticipated Discharge Date Admission Date: January 10, 2024 Subjective Patient is seen and examined at bedside No new complaints Discussed with patient's daughter at bedside Denies any chest pain, dyspnea, dizziness, nausea, vomiting, abdominal pain Saturating well on room air Plan to be discharged to rehab facility today Review of Systems Review of Systems: All systems reviewed & are unremarkable except as noted in Subjective Physical Exam Physical Exam: Physical Exam: Vitals signs as noted above General Appearance: Thin, frail, elderly, no apparent distress Head: normocephalic, Atraumatic Eyes: normal inspection, EOMI Neck: supple, Trachea midline Respiratory/Chest: Decreased breath sounds, CTA, No accessory muscle use Cardiovascular: Irregularly irregular, + murmur Abdomen/GI:Soft, Non tender, Bowel sounds present Extremities/Musculoskeletal:normal inspection, no edema Neurologic/Psych:AAOX3, grossly no focal neurological deficits Skin: normal color, warm Results & Data Results & Data Vital Signs (Past 12 Hours) Vital Signs Temp Pulse Pulse Resp BP BP Pulse Ox 01/17/24 11:33 36.5 C 78 18 113/74 95 01/17/24 11:15 36.3 C L 96 H 18 140/81 148/86 H 96 01/17/24 10:54 36.3 C L 96 H 18 140/81 148/86 H 96 01/17/24 09:00 91 H 01/17/24 07:20 36.3 C L 96 H 18 148/86 H 96 01/17/24 05:00 36.4 C L 107 H 20 140/81 94 01/17/24 00:11 36.4 C L 86 20 144/83 H 95 O2 Del Method 01/17/24 11:33 Room Air 01/17/24 11:15 01/17/24 10:54 01/17/24 09:00 01/17/24 07:20 Room Air 01/17/24 05:00 Room Air 01/17/24 00:11 Room Air Laboratory Results Short CBC 01/17/24 Range/Units 04:28 WBC 6.29 (4.8-10.8) K/ul Hgb 14.5 (12.0-16.0) g/dl Hct 42.4 (37.0-47.0) % Plt Count 228 (130-400) K/uL BMP 01/17/24 04:28 Sodium 139 Potassium 3.8 Chloride 105 Carbon Dioxide 26 BUN 21 Creatinine 0.72 Glucose 105 H Calcium 9.2
--- NOTE | 2024-01-17 11:45 | Discharge Summary ---
Date of Service January 17, 2024 Admission HPI Per Admitting Provider Patient is 88 year old female with PMH HTN, dyslipidemia, atrial fibrillation anticoagulated on Eliquis, anxiety, GERD presented to ER with complaint of cough and confusion x 1 week. History obtained from patient, patient's daughter, inpatient and outpatient chart review. States one week ago started with increased confusion and was having trouble taking her pills correctly and getting confused easily. 5 days ago started with congestion, productive yellow cough. Patient states doesn't feel SOB however today daughter noticed seems she was breathing more heavy. States generalized weakness and fatigue. Yesterday and today not moving around much states "feel too tired". Walks with walker at baseline. Denies known falls. Denies CP. Denies fever/chills, diaphoresis, N/V/D/C, SCHULZ, dizziness, syncope, vision changes, neck pain, palpitations, hemoptysis, sore throat, choking, abdominal pain, extremity edema, rashes, urinary symptoms. Admission Exam Per Admitting Provider General: no acute distress, WDWN elderly female Head: normocephalic, atraumatic Eyes: PERRL, EOM's intact, conjunctiva non-injected, anicteric ENT: normal inspection external ears, nose, mucous membranes dry Neck: supple, trachea midline Lungs: no respiratory distress, 93% on RA, + scattered wheezing, no rales/rhonchi noted CV: irregularly irregularly, rate 104, no pretibial edema Abd: normal BS, soft, non-tender Ext: no cyanosis, no calf tenderness Neuro: Alert, oriented to person, place. Not oriented to month, day or year. No other focal deficits noted, normal affect Skin: warm, dry Principal Diagnosis Influenza type B Urinary tract infection Acute metabolic encephalopathy Discharge Data Allergies Allergy/AdvReac Type Severity Reaction Status Date / Time Penicillins Allergy Unknown CAN'T Verified 01/10/24 15:04 REMEMBER propoxyphene Allergy Unknown CAN'T Verified 01/10/24 15:04 REMEMBER quinine Allergy Unknown CAN'T Verified 01/10/24 15:04 REMEMBER morphine AdvReac Severe extreme Verified 01/10/24 15:04 confusion Cephalosporins AdvReac Intermediate DIZZINESS Verified 01/10/24 15:04 & NAUSEA lisinopril AdvReac Intermediate COUGH Verified 01/10/24 15:04 simvastatin AdvReac Intermediate MUSCLE PAIN Verified 01/10/24 15:04 Consultations 01/10/24 14:19 ED Decision to Admit Stat Procedures Performed Laboratory Results WBC 6.29 K/ul (4.8-10.8) 01/17/24 04:28 RBC 4.71 M/uL (4.20-5.40) 01/17/24 04:28 Hgb 14.5 g/dl (12.0-16.0) 01/17/24 04:28 Hct 42.4 % (37.0-47.0) 01/17/24 04:28 MCV 90.0 fL (80.0-100.0) 01/17/24 04:28 MCH 30.8 pg (25.0-34.0) 01/17/24 04:28 MCHC 34.2 g/dL (32.0-36.0) 01/17/24 04:28 RDW Std Deviation 43.1 fL (36.4-46.3) 01/17/24 04:28 RDW Coeff of [place] 13.1 % (11.5-14.5) 01/17/24 04:28 Plt Count 228 K/uL (130-400) 01/17/24 04:28 MPV 10.5 fL (9.4-12.4) 01/17/24 04:28 Immature Gran % (Auto) 0.6 % 01/15/24 05:44 Neut % (Auto) 60.1 % 01/15/24 05:44 Lymph % (Auto) 26.1 % 01/15/24 05:44 [place] % (Auto) 11.0 % 01/15/24 05:44 Eos % (Auto) 1.1 % 01/15/24 05:44 Baso % (Auto) 1.1 % 01/15/24 05:44 Neut # (Auto) 3.27 K/uL (1.40-6.50) 01/15/24 05:44 Lymph # (Auto) 1.42 K/uL (1.20-3.40) 01/15/24 05:44 [place] # (Auto) 0.60 K/uL (0.11-0.59) H 01/15/24 05:44 Eos # (Auto) 0.06 K/uL (0.00-0.50) 01/15/24 05:44 Baso # (Auto) 0.06 K/uL (0.00-0.20) 01/15/24 05:44 Immature Gran # (Auto) 0.03 K/uL (0.01-0.20) 01/15/24 05:44 Sodium 139 mmol/L (136-145) 01/17/24 04:28 Potassium 3.8 mmol/L (3.5-5.1) 01/17/24 04:28 Chloride 105 mmol/L (98-107) 01/17/24 04:28 Carbon Dioxide 26 mmol/L (21-32) 01/17/24 04:28 Anion Gap 8 (3-11) 01/17/24 04:28 BUN 21 mg/dl (6-23) 01/17/24 04:28 Creatinine 0.72 mg/dl (0.6-1.2) 01/17/24 04:28 Est Cr Clr Drug Dosing 51.2 ml/min 01/17/24 04:28 Est GFR ( Amer) 86.1 ml/min 01/17/24 04:28 Est GFR (Non-Af Amer) 74.3 ml/min 01/17/24 04:28 BUN/Creatinine Ratio 29.2 (10-20) H 01/17/24 04:28 Glucose 105 mg/dl (70-99(Fasting)) H 01/17/24 04:28 Lactate 1.4 mmol/L (0.4-2.0) 01/10/24 17:43 Calcium 9.2 mg/dl (8.6-10.3) 01/17/24 04:28 Phosphorus 3.1 mg/dl (2.5-4.9) 01/11/24 06:44 Magnesium 1.8 mg/dl (1.7-2.4) 01/17/24 04:28 Total Bilirubin 0.7 mg/dl (0.2-1.0) 01/11/24 06:44 Direct Bilirubin 0.2 mg/dl (0-0.2) 01/10/24 12:32 AST 54 U/L (13-39) H 01/11/24 06:44 ALT 40 U/L (7-52) 01/11/24 06:44 Alkaline Phosphatase 78 U/L (34-104) 01/11/24 06:44 Troponin I High Sens 6.7 pg/ml (0-14) 01/10/24 15:31 Total Protein 6.9 gm/dl (6.0-8.3) 01/11/24 06:44 Albumin 3.3 gm/dl (3.4-5.0) L 01/11/24 06:44 Globulin 3.6 gm/dl (2.5-4.0) 01/11/24 06:44 Albumin/Globulin Ratio 0.9 (0.9-2) 01/11/24 06:44 Procalcitonin < 0.02 ng/ml (0-0.5) 01/10/24 12:43 Urine Color Yellow 01/10/24 13:06 Urine Appearance Cloudy (Clear) A 01/10/24 13:06 Urine pH 7.5 (4.5-7.5) 01/10/24 13:06 Ur Specific [place] 1.010 (1.000-1.030) 01/10/24 13:06 Urine Protein Trace (Negative) H 01/10/24 13:06 Urine Glucose (UA) Negative (Negative) 01/10/24 13:06 Urine Ketones Negative (Negative) 01/10/24 13:06 Urine Blood Trace (Negative) H 01/10/24 13:06 Urine Nitrite Positive (Negative) A 01/10/24 13:06 Urine Bilirubin Negative (Negative) 01/10/24 13:06 Urine Urobilinogen Negative (Negative) 01/10/24 13:06 Ur Leukocyte Esterase 3+ (Negative) H 01/10/24 13:06 Urine WBC (Auto) >30 /hpf (0-5) H 01/10/24 13:06 Urine RBC (Auto) 5-10 /hpf (0-4) H 01/10/24 13:06 U Hyaline Cast (Auto) 0 /lpf (0-5) 01/10/24 13:06 U Epithel Cells (Auto) 10-20 /lpf (0-5) H 01/10/24 13:06 Urine Bacteria (Auto) 1+ (Negative) H 01/10/24 13:06 Digoxin < 0.3 ng/ml (0.8-2.0) L 01/10/24 15:30 Adenovirus (PCR) Not Detected (NotDetected) 01/10/24 12:12 B. pertussis DNA (PCR) Not Detected (NotDetected) 01/10/24 12:12 B.parapertussis DNA PCR Not Detected (NotDetected) 01/10/24 12:12 C. pneumoniae DNA (PCR) Not Detected (NotDetected) 01/10/24 12:12 Coronavirus OC43 (PCR) Not Detected (NotDetected) 01/10/24 12:12 Coronavirus HKU1 (PCR) Not Detected (NotDetected) 01/10/24 12:12 Coronavirus 229E (PCR) Not Detected (NotDetected) 01/10/24 12:12 SARS-CoV-2 (PCR) Not Detected (NotDetected) 01/10/24 12:12 Coronavirus NL63 (PCR) Not Detected (NotDetected) 01/10/24 12:12 Human Metapneumovir PCR Not Detected (NotDetected) 01/10/24 12:12 Influenza Type A (PCR) Not Detected (NotDetected) 01/10/24 12:12 Influenza Type B (PCR) DETECTED (NotDetected) A 01/10/24 12:12 M. pneumoniae (PCR) Not Detected (NotDetected) 01/10/24 12:12 Parainfluenza 1 (PCR) Not Detected (NotDetected) 01/10/24 12:12 Parainfluenza 2 (PCR) Not Detected (NotDetected) 01/10/24 12:12 Parainfluenza 3 (PCR) Not Detected (NotDetected) 01/10/24 12:12 Parainfluenza 4 (PCR) Not Detected (NotDetected) 01/10/24 12:12 RSV (PCR) Not Detected (NotDetected) 01/10/24 12:12 Entero/Rhino (PCR) Not Detected (NotDetected) 01/10/24 12:[address] 01/10/24 11:[address] DOSE: 1487.48 mGy.cm HISTORY: Altered mental status. TECHNIQUE: Multiaxial CT images of the head were performed without the use of intravenous contrast. Automated exposure control was utilized for this study. A dose lowering technique was utilized adhering to the principles of ALARA. Comparison: Head CT 03/14/2022. Findings: Trace fluid level within the left maxillary sinus. The mastoid air cells are clear. The calvarium and skull base are intact. There is no mass, hematoma, midline shift, acute infarct. White matter hypodensity is nonspecific but suggestive of microvascular ischemic change. The ventricles and sulci demonstrate mild age-related involutional changes. Impression: No significant change compared to the prior study. No acute intracranial abnormality. ACT 112: Negative or not required by law. Electronically signed by: Federico Faye M.D. 01/10/2024 12:34 PM Chest X-Ray 01/10/24 11:59 XR chest 1V portable HISTORY: Cough. Pneumonia. COMPARISON: Chest 11/12/2023. FINDINGS: Slightly rotated study. No pneumothorax. No pleural effusions. The heart is mildly enlarged. There is a moderate hiatus hernia again noted. No new focal lung consolidations to suggest a pneumonia. No evidence for pulmonary edema. Mild chronic interstitial thickening persists. No acute fractures. IMPRESSION: No significant change compared to the prior study. No acute process. ACT 112: Negative or not required by law. Electronically signed by: Federico Faye M.D. 01/10/2024 12:57 PM Ordered Studies 01/10/24 11:56 CT head/brain wo con Stat Hospital Course (1) Influenza: Patient is 88 year old female with PMH HTN, dyslipidemia, atrial fibrillation anticoagulated on Eliquis, anxiety, GERD presented to ER with complaint of cough and confusion x 1 week. Influenza type B BioFire positive for influenza type B --CXR:No significant change compared to the prior study. No acute process. Nebs as needed Conservative management Saturating well on room air Incentive spirometer, flutter valve Rehab today (2) UTI (urinary tract infection): Urine culture grew Pseudomonas Blood cultures negative to date Continue IV cefepime day#5/7 Avoid QTc prolonging medications (3) Metabolic encephalopathy: Secondary to UTI and flu Mental status seem to be bacterial Reorient frequently to minimize delirium Monitor (4) Weakness: Continue PT OT (5) Ambulatory dysfunction: Secondary to illness, comorbidities PT/OT eval-recommended SNF (6) Permanent atrial fibrillation: Continue metoprolol On Eliquis for anticoagulation Patient was previously on digoxin however reports was not on discharge summary from rehab so have not been giving it to her (Per prior provider) Monitor (7) HLD (hyperlipidemia): Continue atorvastatin (8) Anxiety: Continue fluoxetine DVT Px Eliquis Code Status DNR/DNI Disposition Rehab Total Time Total Time Spent Total Time Spent (In Minutes): 57 minutes Discharge Plan Discharge Items Patient Disposition: Transfer [facility] Reason For Visit: FLU, WEAKNESS Discharge Diagnosis: Influenza type B Urinary tract infection Acute metabolic encephalopathy Activity: Per Instructions section Exercise/Sports: Gradually increase as tolerated Non-emergency contact: Primary Care Provider Call non-emergency contact if: you have any medication questions, your symptoms worsen, your pain is concerning for you and you have a fever Follow-up/Referrals: Redd Smiley MD [Primary Care Provider] - Diet: Heart Healthy Addtl Attending Provider Instructions: Follow-up with your primary care physician in 1 week as advised -- Complete the antibiotic course IV cefepime 2gms twice a day for 2 more days Last day 01/19/24 Seek immediate medical attention if your symptoms reoccur or worsen Please take all medications as instructed on discharge list below. Please call if you have any questions or problems. You can reach a [facility] hospitalist on duty at [facility] 24 hours a day by calling [phone] Pending Studies at Discharge: No Stand-Alone Forms: My [facility] Skilled Items Patient informed of condition?: Yes DNR: Yes Discharge Level of Care: Skilled Communicable Disease: No Discharge Prognosis: Stable Lines: US Guided Peripheral IV Urinary Catheter: No Medications and DC Order Prescriptions: New cefepime 2 gram recon soln 2 g IV Q12H 2 Days Continued atorvastatin 10 mg tablet 10 mg PO HS fluoxetine 20 mg capsule 20 mg PO QAM Rx Instructions: PER PT'S DAUGHTER "MISS HER MOUTH, DIDN'T TAKE THIS AM, FOUND ON PT'S CHEST BY EMS". acetaminophen 325 mg Tablet 650 mg PO Q6H PRN (Reason: pain) Qty: 50 0RF multivitamin Tablet 1 tab PO DAILY Eliquis 2.5 mg tablet 2.5 mg PO BID Rx Instructions: PER PT'S DAUGHTER "MISS HER MOUTH, DIDN'T TAKE THIS AM, FOUND ON PT'S CHEST BY EMS". Mucinex DM 30-600 mg Tablet Extended Release 12 Hr 1 tab PO Q12H metoprolol succinate 100 mg Tablet Extended Release 24 Hr 100 mg PO BID Discharge Orders: Discharge Order (Routine); Ordered 01/17/24 Ordered By: Dandre Brunson Admission Data Admit Date/Time: 01/10/24 15:29 Attending Provider: Dandre Brunson Admit Provider: Nacho Leslie Primary Care Provider: Redd Smiley Other Providers: Nacho Leslie; [place]; Willem Moreno at [place]; [place] Other Interventions: Discharge Summary Assessment (RN) Last Done: 01/17/24 11:15
== END 2024-01-17 12:39 | DRG 193 ==
LOC: ED 11:16 → SUATTDRO 15:29 → EDINP 15:29 → 2S 17:10 → 2W 01-12 18:12

== ENCOUNTER 2024-06-04 09:53 | Inpatient (IN) ==
--- NOTE | 2024-06-04 10:28 | Emergency Department Note ---
Impression & Plan Closed pelvic fracture, Urinary tract infection, Atrial fibrillation with rapid ventricular response, Contusion of elbow, right, Fall ED Provider Note NAME: HALEIGH SNYDER AGE: 88 SEX: F : 1935 ARRIVES VIA: Ambulance INFORMANT: Patient, the patient's daughter ED PROVIDER(S): Ramu Guthrie DO CHIEF COMPLAINT: Fall HPI: The patient is an 88-year-old female who lives in her own apartment who presented to the emergency department for an evaluation after a fall. The patient states that she was in her bedroom and had an episode where she fell. It is unclear if the patient passed out. She does have a history of underlying confusion but she was found in her kitchen on the floor unable to stand. The patient does complain of right elbow pain and right hip pain. It is unclear if the patient struck her head. She denies having any neck pain. She denies having any abdominal pain or chest pain. The patient states that she has been compliant with her outpatient medications which does include Eliquis. The patient denies having any recent GI illnesses. ROS: See above HPI for pertinent positives & negatives. A total of 10 systems reviewed and were otherwise negative. PAST MEDICAL HISTORY: See Below PAST SURGICAL HISTORY: See Below FAMILY HISTORY: See Below SOCIAL HISTORY: See Below HOME MEDICATIONS: See Below ALLERGIES: See Below VITALS: See Below PHYSICAL EXAMINATION: GENERAL: The patient is awake and alert. The patient is anxious appearing. EYES: The conjunctivae are clear. The pupils are round and reactive. EARS, NOSE, MOUTH AND THROAT: The nose is without any evidence of any deformity. NECK: The neck is nontender and supple. RESPIRATORY: Normal respiratory effort is noted there is no evidence of wheezing rhonchi or rales CARDIOVASCULAR: Irregular and tachycardic heart sounds were noted to auscultation. There is no definite murmur. GASTROINTESTINAL: The abdomen is soft. Abdomen is nontender BACK: No midline tenderness or or step-off noted range of motion in flexion extension as well as rotation no signs of muscle spasm noted MUSCULOSKELETAL/EXTREMITIES: The right leg is slightly shorter than the left leg. The patient has pain with palpation over the right hip and range of motion testing of the right hip elicits significant pain. SKIN: Pulses are symmetric in both feet. There is no significant pedal edema. NEUROLOGIC: Patient is awake alert and oriented to person and place but not time. Strength is symmetric but diminished. MEDICAL DECISION MAKING: The patient is an 88-year-old female who presented to the emergency department after a fall. It is unclear if the patient had a syncopal episode. The patient had injury to her right hip and right elbow. I discussed the patient's laboratory and radiographic studies with her. She does have some underlying dementia. She lives alone with significant help from family and is checked on frequently. The patient was found to have a pubic ring fracture. She was also found to have a urinary tract infection. She was treated with pain medication as well as IV fluids. She was also given IV antibiotics for presumed urinary tract infection noted on urinalysis. I discussed her condition with her family. I discussed her condition with the on-call [facility] hospitalist. They have agreed to evaluate the patient in the emergency department for further management and disposition. Triage Nursing notes reviewed. Prior medical records reviewed Vital Signs: reviewed and remarkable for elevated blood pressure. The patient was also found to be in tachycardia. Differential diagnosis: Fracture, dislocation, neurovascular compromise, compartment syndrome, soft tissue injury, as well as other pathologies. ER treatment provided: See below Diagnostics interpreted by me: ECG: EKG was obtained in the emergency department. My interpretation is atrial fibrillation at [address] depressions were noted. There is no ectopy. This was compared to a tracing from January 11, 2024. No specific changes were noted. Cardiac Monitoring: An order was placed for continuous cardiac monitoring. The monitor shows a rate of 109 bpm with A-fib and RVR. Laboratory studies: As stated above and show below. Imaging studies: See below. Radiographic imaging was reviewed by myself Consultation(s): I discussed this case with Alyson who is on-call for the [facility] Hospitalist group. Past Med/Surg History Problem List (Updated 06/04/24 @ 13:04 by Ramu Guthrie DO) Fall (Acute) Contusion of elbow, right (Acute) Atrial fibrillation with rapid ventricular response (Acute) Urinary tract infection (Acute) Closed pelvic fracture (Acute) Encephalopathy (Acute) Influenza (Acute) Ambulatory dysfunction Metabolic encephalopathy Influenza Permanent atrial fibrillation Atrial fibrillation with rapid ventricular response (Acute) Acute UTI (Acute) Weakness (Acute) Elevated LFTs Anxiety UTI (urinary tract infection) (Acute) Pneumonia (Acute) Chronic atrial fibrillation (Acute) CKD (chronic kidney disease) stage 3, GFR 30-59 ml/min GERD (gastroesophageal reflux disease) HLD (hyperlipidemia) HTN (hypertension) Medical History COVID-19 Closed fracture of right hip Surgical History History of total right hip replacement Hx of appendectomy History of hip surgery Left H/O spinal fusion Family History Other Diabetes Heart disease Hypertension Social History Smoking Status: Never smoker Second Hand Exposure: No; Do You Dip or Chew Tobacco: No; Hx Alcohol Use: No Hx Substance Use: No Preferred Language: Andorran Communication Ability: Effective Lead Burner Required: No Beliefs That Will Affect Care: None marital status: / Current Living Situation: Alone Current Living Situation Comment: daughter sees her daily according to patient Feels Safe at Home: Yes Assistive Devices: Walker Allergies Allergies Allergy/AdvReac Type Severity Reaction Status Date / Time Penicillins Allergy Unknown CAN'T Verified 06/04/24 12:49 REMEMBER propoxyphene Allergy Unknown CAN'T Verified 06/04/24 12:49 REMEMBER quinine Allergy Unknown CAN'T Verified 06/04/24 12:49 REMEMBER morphine AdvReac Severe extreme Verified 06/04/24 12:49 confusion Cephalosporins AdvReac Intermediate DIZZINESS Verified 06/04/24 12:49 & NAUSEA lisinopril AdvReac Intermediate COUGH Verified 06/04/24 12:49 simvastatin AdvReac Intermediate MUSCLE PAIN Verified 06/04/24 12:49 Home Meds Home Medications Medication Instructions Recorded Confirmed atorvastatin 10 mg tablet 10 mg PO HS 04/19/20 06/04/24 fluoxetine 20 mg capsule 20 mg PO QAM 04/19/20 06/04/24 apixaban 2.5 mg tablet (Eliquis) 2.5 mg PO BID 11/21/22 06/04/24 multivitamin 1 tab PO DAILY 11/21/22 06/04/24 dextromethorphan-guaifenesin 30 1 tab PO Q12H PRN Congestion 01/10/24 06/04/24 mg-600 mg tablet extended [id number] hr (Mucinex DM) metoprolol succinate 100 mg 100 mg PO BID 01/10/24 06/04/24 tablet,extended release 24 hr Previous Rx's Medication Instructions Recorded acetaminophen 325 mg tablet 650 mg (2 x 325 mg) PO Q6H PRN 04/22/20 pain #50 tabs Results & Data (ED) Vital Signs Vital Signs - 24 hr 06/04/24 09:57 06/04/24 10:03 06/04/24 10:03 Temperature Temperature Source Pulse Rate 127 H 131 H Pulse Rate from SpO2 Sensor Pulse Rhythm Pulse Strength Respiratory Rate Respiratory Effort / Characteristics Respiratory Depth Respiratory Pattern Blood Pressure 153/99 H Blood Pressure Mean 132 Blood Pressure Position Pulse Oximetry Oxygen Delivery Method Sepsis Recent Fever Within 48 Hours Sepsis New/Unexplained Change in Mental Status Sepsis Action Taken by Nursing 06/04/24 10:10 06/04/24 10:21 06/04/24 10:24 Temperature 36.9 C Temperature Source Oral Pulse Rate 122 H 114 H Pulse Rate from SpO2 Sensor Pulse Rhythm Irregular Pulse Strength Normal Respiratory Rate 20 19 Respiratory Effort / Characteristics Non-Labored Respiratory Depth Normal Respiratory Pattern Regular Blood Pressure 153/99 H Blood Pressure Mean 117 Blood Pressure Position Lying Pulse Oximetry 91 91 Oxygen Delivery Method Room Air Room Air Sepsis Recent Fever Within 48 Hours No Sepsis New/Unexplained Change in Mental Status N/A Sepsis Action Taken by Nursing No Action Required 06/04/24 10:30 06/04/24 10:33 06/04/24 11:00 Temperature Temperature Source Pulse Rate 128 H 136 H Pulse Rate from SpO2 Sensor 127 H Pulse Rhythm Pulse Strength Respiratory Rate Respiratory Effort / Characteristics Respiratory Depth Respiratory Pattern Blood Pressure 111/90 Blood Pressure Mean 98 Blood Pressure Position Pulse Oximetry Oxygen Delivery Method Sepsis Recent Fever Within 48 Hours Sepsis New/Unexplained Change in Mental Status Sepsis Action Taken by Nursing 06/04/24 11:01 06/04/24 11:09 06/04/24 11:27 Temperature Temperature Source Pulse Rate 134 H 128 H Pulse Rate from SpO2 Sensor Pulse Rhythm Pulse Strength Respiratory Rate 19 25 H Respiratory Effort / Characteristics Respiratory Depth Respiratory Pattern Blood Pressure 118/80 Blood Pressure Mean 84 Blood Pressure Position Pulse Oximetry Oxygen Delivery Method Sepsis Recent Fever Within 48 Hours Sepsis New/Unexplained Change in Mental Status Sepsis Action Taken by Nursing 06/04/24 11:30 06/04/24 11:30 06/04/24 11:33 Temperature Temperature Source Pulse Rate 132 H Pulse Rate from SpO2 Sensor 128 H Pulse Rhythm Pulse Strength Respiratory Rate 29 H Respiratory Effort / Characteristics Respiratory Depth Respiratory Pattern Blood Pressure 128/90 128/90 Blood Pressure Mean 95 95 Blood Pressure Position Pulse Oximetry 76 L Oxygen Delivery Method Sepsis Recent Fever Within 48 Hours Sepsis New/Unexplained Change in Mental Status Sepsis Action Taken by Nursing 06/04/24 11:57 06/04/24 12:00 06/04/24 12:21 Temperature Temperature Source Pulse Rate 138 H 125 H Pulse Rate from SpO2 Sensor Pulse Rhythm Pulse Strength Respiratory Rate 24 27 H Respiratory Effort / Characteristics Respiratory Depth Respiratory Pattern Blood Pressure 124/79 Blood Pressure Mean 84 Blood Pressure Position Pulse Oximetry Oxygen Delivery Method Sepsis Recent Fever Within 48 Hours Sepsis New/Unexplained Change in Mental Status Sepsis Action Taken by Nursing 06/04/24 12:31 06/04/24 12:33 06/04/24 13:00 Temperature Temperature Source Pulse Rate 134 H 109 H Pulse Rate from SpO2 Sensor Pulse Rhythm Pulse Strength Respiratory Rate 22 23 Respiratory Effort / Characteristics Respiratory Depth Respiratory Pattern Blood Pressure 155/105 H Blood Pressure Mean 110 Blood Pressure Position Pulse Oximetry Oxygen Delivery Method Sepsis Recent Fever Within 48 Hours Sepsis New/Unexplained Change in Mental Status Sepsis Action Taken by Care Home Medications Current Medication List: was personally reviewed by me Laboratory Data Attestation: I reviewed the patient's lab results. 06/04/24 10:40 06/04/24 10:40 Lab Results 06/04/24 06/04/24 Range/Units 10:40 11:05 WBC 8.81 (4.8-10.8) K/ul RBC 4.23 (4.20-5.40) M/uL Hgb 12.9 (12.0-16.0) g/dl Hct 39.9 (37.0-47.0) % MCV 94.3 (80.0-100.0) fL MCH 30.5 (25.0-34.0) pg MCHC 32.3 (32.0-36.0) g/dL RDW Std Deviation 43.7 (36.4-46.3) fL RDW Coeff of Edison 12.8 (11.5-14.5) % Plt Count 118 L (130-400) K/uL MPV 10.8 (9.4-12.4) fL Immature Gran % (Auto) 0.9 % Neut % (Auto) 80.7 % Lymph % (Auto) 7.4 % Armstrong % (Auto) 10.4 % Eos % (Auto) 0.1 % Baso % (Auto) 0.5 % Neut # (Auto) 7.11 H (1.40-6.50) K/uL Lymph # (Auto) 0.65 L (1.20-3.40) K/uL Armstrong # (Auto) 0.92 H (0.11-0.59) K/uL Eos # (Auto) 0.01 (0.00-0.50) K/uL Baso # (Auto) 0.04 (0.00-0.20) K/uL Immature Gran # (Auto) 0.08 (0.01-0.20) K/uL PT 11.8 (9.0-12.0) Seconds INR 1.1 (0.9-1.1) APTT 28 (21-31) Seconds PTT Ratio 1.0 Sodium 139 (136-145) mmol/L Potassium 4.0 (3.5-5.1) mmol/L Chloride 103 (98-107) mmol/L Carbon Dioxide 30 (21-32) mmol/L Anion Gap 6 (3-11) BUN 17 (6-23) mg/dl Creatinine 0.76 (0.6-1.2) mg/dl Est Cr Clr Drug Dosing 50.6 ml/min Est GFR ( Amer) 80.6 ml/min Est GFR (Non-Af Amer) 69.5 ml/min BUN/Creatinine Ratio 22.4 H (10-20) Glucose 127 H (70-99(Fasting)) mg/dl Calcium 9.7 (8.6-10.3) mg/dl Total Bilirubin 1.1 H (0.2-1.0) mg/dl AST 21 (13-39) U/L ALT 16 (7-52) U/L Alkaline Phosphatase 72 (34-104) U/L Troponin I High Sens 10.1 (0-14) pg/ml Total Protein 7.7 (6.0-8.3) gm/dl Albumin 4.0 (3.4-5.0) gm/dl Globulin 3.7 (2.5-4.0) gm/dl Albumin/Globulin Ratio 1.1 (0.9-2) Lipase 27 (11-82) U/L Urine Color Yellow Urine Appearance Turbid A (Clear) Urine pH 6.5 (4.5-7.5) Ur Specific [place] 1.008 (1.000-1.030) Urine Protein 1+ H (Negative) Urine Glucose (UA) Negative (Negative) Urine Ketones Negative (Negative) Urine Blood 2+ H (Negative) Urine Nitrite Positive A (Negative) Urine Bilirubin Negative (Negative) Urine Urobilinogen Negative (Negative) Ur Leukocyte Esterase 3+ H (Negative) Urine WBC (Auto) >50 H (0-5) /hpf Urine RBC (Auto) 3-5 H (0-2) /hpf U Hyaline Cast (Auto) 3-5 H (0-2) /lpf U Epithel Cells (Auto) 6-10 H (0-2) /hpf Urine Bacteria (Auto) 4+ H (None Seen) Administered Medications Discontinued Medications Fentanyl Citrate (Fentanyl Citrate Pf 100 Mcg/2 Ml Vial) 50 mcg IV Q15M PRN PRN Reason: Pain Stop: 06/18/24 10:23 Last Admin: 06/04/24 11:00 Dose: 50 mcg Documented By: FRIEDA Sodium Chloride (Nss) 500 mls @ 999 mls/hr IV .Q31M STA Stop: 06/04/24 10:54 Last Infusion: 06/04/24 11:46 Dose: Infused Documented By: Admin: 06/04/24 11:44 Dose: 999 mls/hr Documented By: FRIEDA Sodium Chloride (Nss) 250 mls @ 999 mls/hr IV .Q16M ONE Stop: 06/04/24 12:48 Last Infusion: 06/04/24 13:21 Dose: Infused Documented By: Admin: 06/04/24 12:57 Dose: 999 mls/hr Documented By: FRIEDA Cefepime HCl (Maxipime) 2,000 mg in 20 mls @ 5 mls/min IV NOW STA; Protocol Stop: 06/04/24 12:43 Last Admin: 06/04/24 12:54 Dose: 5 mls/min Documented By: FRIEDA Ondansetron HCl (Ondansetron Inj 2 Mg/Ml 2 Ml Vial) 4 mg IV NOW STA Stop: 06/04/24 10:25 Last Admin: 06/04/24 10:50 Dose: 4 mg Documented By: Tessie Imaging Data Attestation: I personally reviewed and interpreted this imaging study as follows: My Impression: X-ray of the right wrist chest and right hip and pelvis were obtained in the emergency department. My interpretation is no definite fracture of the right elbow, no definite fracture of either hip, inferior pubic ring fracture, and no definite infiltrate or free air was noted on x-rays. Final reports below. CT of the brain was obtained in the emergency department. My interpretation is no intracranial hemorrhage or mass effect, final report below. Radiologist's Impression: Cervical Spine CT 06/04/24 10:24 CT cervical spine wo con CLINICAL HISTORY: fall TECHNIQUE: Multidetector row helical CT of the cervical spine was performed without administration of intravenous contrast. Coronal and sagittal reformations were obtained. Automated dose lowering techniques and/or adjustment according to patient size were utilized for this exam. Comparison: Comparison is made to CTA neck 03/14/2022 FINDINGS: No acute fractures or subluxations are identified. Degenerative changes are seen in the visualized spine. The alignment is normal. Biapical scarring is seen in the lungs. IMPRESSION: Degenerative changes without evidence of acute bony injury. ACT 112: Negative or not required by law. Electronically signed by: Ezra Santo M.D. 06/04/2024 11:31 AM Chest X-Ray 06/04/24 10:24 XR chest 1V portable HISTORY: fall COMPARISON: Chest 01/10/2024. FINDINGS: No pneumothorax. No pleural effusions. The heart remains mildly enlarged. There is a moderate hiatus hernia, unchanged. Calcifications within the aortic knob again noted. Old left-sided rib fractures. No acute fractures identified. Mild chronic interstitial thickening persists. IMPRESSION: No significant change compared to the prior study. No acute process. ACT 112: Negative or not required by law. Electronically signed by: Federico Faye M.D. 06/04/2024 1:34 PM Elbow X-Ray 06/04/24 10:24 XR elbow RT min 3V routine CLINICAL HISTORY: fall TECHNIQUE: 3 views of the right elbow were obtained. Comparison: None available at the time of this dictation. FINDINGS: There is no evidence of an acute fracture. Joint spaces are well-preserved. There is no prominence of the anterior or posterior fat pads to suggest an effusion. No soft tissue abnormality is seen. IMPRESSION: No evidence of acute osseous injury. ACT 112: Negative or not required by law. Electronically signed by: Ezra Santo M.D. 06/04/2024 12:[address] 06/04/24 10:[address] DOSE: HISTORY: fall TECHNIQUE: Multiaxial CT images of the head were performed without the use of intravenous contrast. Automated exposure control was utilized for this study. A dose lowering technique was utilized adhering to the principles of ALARA. Comparison: Head CT 01/10/2024. Findings: The paranasal sinuses and mastoid air cells are clear. The calvarium and skull base are intact. There is no mass, hematoma, midline shift, acute infarct. White matter hypodensity is nonspecific but suggestive of microvascular ischemic change. The ventricles and sulci demonstrate mild age-related involutional changes. Impression: No significant change compared to the prior study. No acute intracranial abnormality. ACT 112: Negative or not required by law. Electronically signed by: Federico Faye M.D. 06/04/2024 11:57 AM Hip/Pelvis X-Ray 06/04/24 10:24 SINGLE VIEW PELVIS; 2 VIEWS RIGHT HIP CLINICAL HISTORY: Fall. FINDINGS: An AP view of the pelvis with AP and frog leg views of the right hip are compared to study dated 05/24/2020. The skeletal structures are osteopenic. There is an acute comminuted fracture of the right inferior pubic ring. No additional acute fracture is clearly seen involving the hips or bony pelvis. There is chronic posttraumatic deformity of the left proximal femur with 3 cannulated cortical lag screws in place. A right hip arthroplasty is in near anatomic alignment. No periprosthetic lucency is seen. Bony overgrowth seen along the right acetabular roof. Moderate to severe osteoarthritic change and joint space narrowing is noted in the left hip. There is degenerative sclerosis of the sacroiliac joints. Degenerative and postsurgical change is seen at the lumbosacral junction. Soft tissue edema overlies the right hip. There is advanced atherosclerotic calcification of the femoral arteries. Surgical clips are seen in the pelvis. IMPRESSION: 1. Acute fracture of the inferior right pubic ring. 2. No additional fracture is identified. 3. Postsurgical changes as above. Electronically signed by: Jim Ruff M.D. 06/04/2024 12:20 PM Discharge Plan Visit Data Chief Complaint: Hip Pain Stated Complaint: Fall, no thinners ED Provider: Ramu Guthrie Discharge Problem: Closed pelvic fracture, Urinary tract infection, Atrial fibrillation with rapid ventricular response, Contusion of elbow, right, Fall Patient Disposition: Being Evaluated by Hospitalist Forms Stand Alone Forms: My [facility] Prescriptions Prescriptions: No Action atorvastatin 10 mg tablet 10 mg PO HS fluoxetine 20 mg capsule 20 mg PO QAM Rx Instructions: PER PT'S DAUGHTER "MISS HER MOUTH, DIDN'T TAKE THIS AM, FOUND ON PT'S CHEST BY EMS". acetaminophen 325 mg Tablet 650 mg PO Q6H PRN (Reason: pain) Qty: 50 0RF multivitamin Tablet 1 tab PO DAILY Eliquis 2.5 mg tablet 2.5 mg PO BID Rx Instructions: PER PT'S DAUGHTER "MISS HER MOUTH, DIDN'T TAKE THIS AM, FOUND ON PT'S CHEST BY EMS". Mucinex DM 30-600 mg Tablet Extended Release 12 Hr 1 tab PO Q12H PRN (Reason: Congestion) metoprolol succinate 100 mg Tablet Extended Release 24 Hr 100 mg PO BID Referrals Referrals: Redd Smiley MD [Outside Practitioners] - Discharge Problem: Closed pelvic fracture Qualifiers: Encounter type: initial encounter Pelvic bone location: pubis Sublocation of pubis: unspecified portion of pubis Laterality: right Qualified Code(s): S 32.501A - Unspecified fracture of right pubis, initial encounter for closed fracture Urinary tract infection Qualifiers: Urinary tract infection type: acute cystitis Hematuria presence: without hematuria Qualified Code(s): N30.00 - Acute cystitis without hematuria Contusion of elbow, right Qualifiers: Encounter type: initial encounter Qualified Code(s): S50.01XA - Contusion of right elbow, initial encounter Fall Qualifiers: Encounter type: initial encounter Qualified Code(s): W19.XXXA - Unspecified fall, initial encounter
[2024-06-04] MEDS: ONDANSETRON INJ 2 MG/ML 2 ML VIAL IV STA (10:50)
[2024-06-04] MEDS: fentaNYL citrate PF 100 MCG/2 ML VIAL IV PRN (11:00)
[2024-06-04 11:08] LABS: Basophils # (auto) 0.04 K/uL (0.00-0.20); Basophils % (auto) 0.5 %; Eosinophils # (auto) 0.01 K/uL (0.00-0.50); Eosinophils % (auto) 0.1 %; Hematocrit (blood only) 39.9 % (37.0-47.0); Hemoglobin 12.9 g/dl (12.0-16.0); Immature Granulocytes # (auto) 0.08 K/uL (0.01-0.20); Immature Granulocytes % (auto) 0.9 %; Lymphocytes # (auto) 0.65 K/uL (1.20-3.40); Lymphocytes % (auto) 7.4 %; Mean Corpuscular Hemoglobin 30.5 pg (25.0-34.0); Mean Corpuscular Hgb Conc 32.3 g/dL (32.0-36.0); Mean Corpuscular Volume 94.3 fL (80.0-100.0); Mean Platelet Volume 10.8 fL (9.4-12.4); Monocytes # (auto) 0.92 K/uL (0.11-0.59); Monocytes % (auto) 10.4 %; Neutrophils # (auto) 7.11 K/uL (1.40-6.50); Neutrophils % (auto) 80.7 %; Platelet Count 118 K/uL (130-400); RDW Coefficient of Variation 12.8 % (11.5-14.5); RDW Standard Deviation 43.7 fL (36.4-46.3); Red Blood Count 4.23 M/uL (4.20-5.40); White Blood Count 8.81 K/ul (4.8-10.8)
[2024-06-04 11:20] LABS: Albumin Globulin Ratio 1.1 (0.9-2); BUN Creatinine Ratio 22.4 (10-20); Bilirubin,Total 1.1 mg/dl (0.2-1.0); Calcium 9.7 mg/dl (8.6-10.3); Creatinine Clr Calc Pharmacy 50.6 ml/min; Est GFR (African American) 80.6 ml/min; Est GFR (Non-African American) 69.5 ml/min; Globulin 3.7 gm/dl (2.5-4.0); Total Protein 7.7 gm/dl (6.0-8.3)
[2024-06-04 11:25] LABS: Troponin I High Sensitivity 10.1 pg/ml (0-14)
--- NOTE | 2024-06-04 11:33 | CT Scan Report ---
CT cervical spine wo con CLINICAL HISTORY: fall TECHNIQUE: Multidetector row helical CT of the cervical spine was performed without administration of intravenous contrast. Coronal and sagittal reformations were obtained. Automated dose lowering techn iques and/or adjustment according to patient size were utilized for this exam. Comparison: Comparison is made to CTA neck 03/14/2022 FINDINGS: No acute fractures or subluxations are identified. Degenerative changes are seen in the visualized sp ine. The alignment is normal. Biapical scarring is seen in the lungs. IMPRESSION: Degenerative changes without evidence of acute bony injury. ACT 112: Negative or not required by law. Electronically signed by: Ezra Santo M.D. 06/04/2024 11:31 AM
[2024-06-04 11:38] LABS: INR 1.1 (0.9-1.1); Partial Thromboplastin Time 28 Seconds (21-31); Prothrombin Time 11.8 Seconds (9.0-12.0)
[2024-06-04] MEDS: SODIUM CHLORIDE 0.9% 500 ML IV STA (11:44)
[2024-06-04 11:57] LABS: Appearance Urine Turbid (Clear); Bacteria Urine Automated 4+ (None Seen); Bilirubin Urine Negative (Negative); Blood Urine 2+ (Negative); Color Urine Yellow; Glucose Urine UA Negative (Negative); Ketones Urine Negative (Negative); Leukocyte Esterase Urine 3+ (Negative); Nitrite Urine Positive (Negative); Protein Urine 1+ (Negative); Specific Gravity Urine 1.008 (1.000-1.030); Urobilinogen Urine Negative (Negative); WBC Urine Automated >50 /hpf (0-5); pH Urine 6.5 (4.5-7.5)
--- NOTE | 2024-06-04 11:59 | CT Scan Report ---
HEAD CT NONCONTRAST CT DOSE: HISTORY: fall TECHNIQUE: Multiaxial CT images of the head were performed without the use of intravenous contrast. A utomated exposure control was utilized for this study. A dose lowering technique was utilized adheri ng to the principles of ALARA. Comparison: Head CT 01/10/2024. Findings: The paranasal sinuses and mastoid air cells are clear. The calvarium and skull base are int act. There is no mass, hematoma, midline shift, acute infarct. White matter hypodensity is nonspecifi c but suggestive of microvascular ischemic change. The ventricles and sulci demonstrate mild age-rela renee involutional changes. Impression: No significant change compared to the prior study. No acute intracranial abnormality. ACT 112: Negative or not required by law. Electronically signed by: Federico Faye M.D. 06/04/2024 11:57 AM
--- NOTE | 2024-06-04 12:16 | XRay Report ---
XR elbow RT min 3V routine CLINICAL HISTORY: fall TECHNIQUE: 3 views of the right elbow were obtained. Comparison: None available at the time of this dictation. FINDINGS: There is no evidence of an acute fracture. Joint spaces are well-preserved. There is no prominence of the anterior or posterior fat pads to suggest an effusion. No soft tissue abnormality is seen. IMPRESSION: No evidence of acute osseous injury. ACT 112: Negative or not required by law. Electronically signed by: Ezra Santo M.D. 06/04/2024 12:14 PM
--- NOTE | 2024-06-04 12:22 | XRay Report ---
SINGLE VIEW PELVIS; 2 VIEWS RIGHT HIP CLINICAL HISTORY: Fall. FINDINGS: An AP view of the pelvis with AP and frog leg views of the right hip are compared to study dated 05/24/2020. The skeletal structures are osteopenic. There is an acute comminuted fracture of the right inferior pubic ring. No additional acute fracture is clearly seen involving the hips or bony p ismael. There is chronic posttraumatic deformity of the left proximal femur with 3 cannulated cortical lag screws in place. A right hip arthroplasty is in near anatomic alignment. No periprosthetic lucen cy is seen. Bony overgrowth seen along the right acetabular roof. Moderate to severe osteoarthritic c hange and joint space narrowing is noted in the left hip. There is degenerative sclerosis of the sacr oiliac joints. Degenerative and postsurgical change is seen at the lumbosacral junction. Soft tissue edema overlies the right hip. There is advanced atherosclerotic calcification of the femoral arteries . Surgical clips are seen in the pelvis. IMPRESSION: 1. Acute fracture of the inferior right pubic ring. 2. No additional fracture is identified. 3. Postsurgical changes as above. Electronically signed by: Jim Ruff M.D. 06/04/2024 12:20 PM
[2024-06-04] MEDS: CEFEPIME 2,000 MG/20 ML VIAL IV STA (12:54)
[2024-06-04] MEDS: SODIUM CHLORIDE 0.9% 250 ML IV ONE (12:57)
--- NOTE | 2024-06-04 13:02 | History & Physical Report ---
Date of Service June 04, 2024 Assessment & Plan (1) Fall: (2) Ambulatory dysfunction: (3) Closed pelvic fracture: Plan: This is an 88 year old female with PMH atrial fibrillation anticoagulated on Eliquis, HTN, dyslipidemia, anxiety who presents with R hip pain after fall and was found to have an acute fracture of the inferior right pubic ring, UTI and A fib with RVR. Hip/pelvis XR with an acute fracture of the inferior right pubic ring Ortho service evaluated - WBAT with walker, hold Eliquis for now due to hematoma CT head, cervical spine CT and CXR reviewed - no acute injury or abnormalites noted PT/OT, likely need for rehab Follow up with orthopedics in approximately 1 month Scheduled Tylenol, lidocaine patch, adding oxycodone for breakthrough severe pain Fall precautions (4) Atrial fibrillation with rapid ventricular response: Plan: Admitting EKG with A fib with RVR at 108 bpm Cause likely multifactorial given missed AP Toprol dose this AM, infection and dehydration Giving additional 500ml NSS bolus for a total of 1,250ml Given missed Toprol dosed in AM Lopressor 5mg IV Q4H for HR >120, last received at 1500 Monitor on tele, repeat EKG in AM On Eliquis for A fib - ortho recommending to holding Eliquis due to lateral hip hematoma Called by RN around 1600 this afternoon as HR still in 120-140s despite IV Lopressor. Will hold Toprol, start diltiazem drip and consult cardiology (5) Acute metabolic encephalopathy: (6) Urinary tract infection: Plan: Similar confusion and generalized weakness to previous UTIs UA grossly abnormal Given Cefepime in ED - will continue abx coverage with Cefepime Follow urine culture (7) HLD (hyperlipidemia): Plan: Continue statin HS (8) Anxiety: Plan: Stable. Continue fluoxetine (9) CKD (chronic kidney disease) stage 3, GFR 30-59 ml/min: Plan: Cr at baseline at 0.76 Daily BMP DVT Ppx: Holding Eliquis for now Code status: DNR/DNI PCP: Sesar Ramsay Dispo: Admitted to PCU Patient seen in collaboration with Dr. Avilez. Please see addendum. I spent a total of 90 minutes coordinating, documenting, and providing care for this patient excluding time spent in the performance of separately billed services. History of Present Illness Chief Complaint: fall, hip pain Primary Care Provider: Arcenio Ramsay MD This is an 88 year old female with PMH atrial fibrillation anticoagulated on Eliquis, HTN, dyslipidemia, anxiety who presents with R hip pain after fall. Was walking in apartment "when it was dark out" and remembers falling onto her face. Does not remember any other details but present with a constant, 7/10 aching R hip pain extending into groin. Neighbor found her face down in kitchen but conscious and called EMS for further evaluation. Walks with a walker and sometimes leans backwards and had a fall backwards last week and another fall 2 weeks prior. Daughter states he mom is typically A&O x 3 but historically becomes confused quickly with UTIs. Denies any fever, chills, headache, chest pain, shortness of breath, vomiting, abdominal pain, diarrhea or constipation. Has history of chronic A-fib that is asymptomatic for her. When examined in ED, found patient to be tachycardic with A fib in 120s as well as hypoxic in 80s. Is not on oxygen at baseline but did receive IV fentanyl 50mc g x 1 in ED. Placed on supplemental O2 with improved O2 saturations to 05%. Has also received a dose of Cefepime and 750ml NSS in total thus far. Allergies Allergy/AdvReac Type Severity Reaction Status Date / Time Penicillins Allergy Unknown CAN'T Verified 06/04/24 12:49 REMEMBER propoxyphene Allergy Unknown CAN'T Verified 06/04/24 12:49 REMEMBER quinine Allergy Unknown CAN'T Verified 06/04/24 12:49 REMEMBER morphine AdvReac Severe extreme Verified 06/04/24 12:49 confusion Cephalosporins AdvReac Intermediate DIZZINESS Verified 06/04/24 12:49 & NAUSEA lisinopril AdvReac Intermediate COUGH Verified 06/04/24 12:49 simvastatin AdvReac Intermediate MUSCLE PAIN Verified 06/04/24 12:49 Home Medications Medication Instructions Recorded Confirmed Type atorvastatin 10 mg tablet 10 mg PO HS 04/19/20 06/04/24 History fluoxetine 20 mg capsule 20 mg PO QAM 04/19/20 06/04/24 History acetaminophen 325 mg tablet 650 mg (2 x 325 mg) PO Q6H PRN 04/22/20 06/04/24 Rx pain #50 tabs apixaban 2.5 mg tablet (Eliquis) 2.5 mg PO BID 11/21/22 06/04/24 History multivitamin 1 tab PO DAILY 11/21/22 06/04/24 History dextromethorphan-guaifenesin 30 1 tab PO Q12H PRN Congestion 01/10/24 06/04/24 History mg-600 mg tablet extended [id number] hr (Mucinex DM) metoprolol succinate 100 mg 100 mg PO BID 01/10/24 06/04/24 History tablet,extended release 24 hr Past Med/Surg History Problem List Acute metabolic encephalopathy Fall (Acute) Contusion of elbow, right (Acute) Atrial fibrillation with rapid ventricular response (Acute) Urinary tract infection (Acute) Closed pelvic fracture (Acute) Encephalopathy (Acute) Influenza Permanent atrial fibrillation Weakness (Acute) Elevated LFTs Anxiety UTI (urinary tract infection) (Acute) Pneumonia (Acute) Chronic atrial fibrillation (Acute) CKD (chronic kidney disease) stage 3, GFR 30-59 ml/min GERD (gastroesophageal reflux disease) HLD (hyperlipidemia) HTN (hypertension) Medical History Ambulatory dysfunction Closed fracture of right hip Surgical History History of total right hip replacement Hx of appendectomy History of hip surgery Left H/O spinal fusion Family History Other Diabetes Heart disease Hypertension Social History Smoking Status: Never smoker Second Hand Exposure: No; Do You Dip or Chew Tobacco: No; Hx Alcohol Use: No Hx Substance Use: No Preferred Language: Croatian Communication Ability: Effective Financial Sales Associate Required: No Beliefs That Will Affect Care: None marital status: / Current Living Situation: Alone Current Living Situation Comment: daughter sees her daily according to patient Feels Safe at Home: Yes Assistive Devices: Walker Review of Systems Review of Systems: At least ten systems reviewed and negative except as noted in the HPI. Physical Exam Physical Exam: General Appearance: WD/WN, vitals as above, NAD, sitting up in bed, pleasant, conversing easily Head: normocephalic, atraumatic Eyes: normal inspection, PERRL, conjunctivae normal, anicteric sclerae ENT: external ear and nose normal, + dry mucous membranes of oropharynx Neck: normal visual inspection Respiratory: normal respiratory effort, lungs clear to auscultation, no wheeze, rales, rhonchi. No accessory muscle use Cardiovascular: irregular rate & rhythm, normal peripheral pulses, no BLE edema. Vessels: no JVD Chest: normal inspection of chest Abdomen/GI: normal bowel sounds, soft, nontender, no hepatosplenomegaly Extremities/Musculoskeletal: + R lateral hip pain with exention into groin Neurologic: PERRL, EOMI, accommodation nl, no face palsy, no dysarthria, CN's II-XI intact bilaterally and moves all extremities Psychiatric: A+Ox person and place, not to time, euthymic affect Skin: no rashes, normal color, warm/dry Results & Data Results & Data Vital Signs (Past 12 Hours) Vital Signs Temp Pulse Resp BP Pulse Ox O2 Del Method 06/04/24 11:01 118/80 06/04/24 11:00 136 H 06/04/24 10:33 128 H 06/04/24 10:30 111/90 06/04/24 10:21 114 H 19 06/04/24 10:10 36.9 C 122 H 20 153/99 H 91 Room Air 06/04/24 10:03 131 H 06/04/24 10:03 127 H 06/04/24 09:57 153/99 H Laboratory Results Short CBC 06/04/24 Range/Units 10:40 WBC 8.81 (4.8-10.8) K/ul Hgb 12.9 (12.0-16.0) g/dl Hct 39.9 (37.0-47.0) % Plt Count 118 L (130-400) K/uL BMP 06/04/24 10:40 Sodium 139 Potassium 4.0 Chloride 103 Carbon Dioxide 30 BUN 17 Creatinine 0.76 Glucose 127 H Calcium 9.7 Liver Function 06/04/24 Range/Units 10:40 Total Bilirubin 1.1 H (0.2-1.0) mg/dl AST 21 (13-39) U/L ALT 16 (7-52) U/L Alkaline Phosphatase 72 (34-104) U/L Albumin 4.0 (3.4-5.0) gm/dl Urine 06/04/24 Range/Units 11:05 Urine Color Yellow Urine Appearance Turbid A (Clear) Urine pH 6.5 (4.5-7.5) Ur Specific [place] 1.008 (1.000-1.030) Urine Protein 1+ H (Negative) Urine Glucose (UA) Negative (Negative) Diagnostic Findings Cervical Spine CT 06/04/24 10:24 CT cervical spine wo con CLINICAL HISTORY: fall TECHNIQUE: Multidetector row helical CT of the cervical spine was performed without administration of intravenous contrast. Coronal and sagittal reformations were obtained. Automated dose lowering techniques and/or adjustment according to patient size were utilized for this exam. Comparison: Comparison is made to CTA neck 03/14/2022 FINDINGS: No acute fractures or subluxations are identified. Degenerative changes are seen in the visualized spine. The alignment is normal. Biapical scarring is seen in the lungs. IMPRESSION: Degenerative changes without evidence of acute bony injury. ACT 112: Negative or not required by law. Electronically signed by: Ezra Santo M.D. 06/04/2024 11:31 AM Chest X-Ray 06/04/24 10:24 XR chest 1V portable HISTORY: fall COMPARISON: Chest 01/10/2024. FINDINGS: No pneumothorax. No pleural effusions. The heart remains mildly enlarged. There is a moderate hiatus hernia, unchanged. Calcifications within the aortic knob again noted. Old left-sided rib fractures. No acute fractures identified. Mild chronic interstitial thickening persists. IMPRESSION: No significant change compared to the prior study. No acute process. ACT 112: Negative or not required by law. Electronically signed by: Federico Faye M.D. 06/04/2024 1:34 PM Elbow X-Ray 06/04/24 10:24 XR elbow RT min 3V routine CLINICAL HISTORY: fall TECHNIQUE: 3 views of the right elbow were obtained. Comparison: None available at the time of this dictation. FINDINGS: There is no evidence of an acute fracture. Joint spaces are well-preserved. There is no prominence of the anterior or posterior fat pads to suggest an effusion. No soft tissue abnormality is seen. IMPRESSION: No evidence of acute osseous injury. ACT 112: Negative or not required by law. Electronically signed by: Ezra Santo M.D. 06/04/2024 12:[address] 06/04/24 10:[address] DOSE: HISTORY: fall TECHNIQUE: Multiaxial CT images of the head were performed without the use of intravenous contrast. Automated exposure control was utilized for this study. A dose lowering technique was utilized adhering to the principles of ALARA. Comparison: Head CT 01/10/2024. Findings: The paranasal sinuses and mastoid air cells are clear. The calvarium and skull base are intact. There is no mass, hematoma, midline shift, acute infarct. White matter hypodensity is nonspecific but suggestive of microvascular ischemic change. The ventricles and sulci demonstrate mild age-related involutional changes. Impression: No significant change compared to the prior study. No acute intracranial abnormality. ACT 112: Negative or not required by law. Electronically signed by: Federico Faye M.D. 06/04/2024 11:57 AM Hip/Pelvis X-Ray 06/04/24 10:24 SINGLE VIEW PELVIS; 2 VIEWS RIGHT HIP CLINICAL HISTORY: Fall. FINDINGS: An AP view of the pelvis with AP and frog leg views of the right hip are compared to study dated 05/24/2020. The skeletal structures are osteopenic. There is an acute comminuted fracture of the right inferior pubic ring. No additional acute fracture is clearly seen involving the hips or bony pelvis. There is chronic posttraumatic deformity of the left proximal femur with 3 cannulated cortical lag screws in place. A right hip arthroplasty is in near anatomic alignment. No periprosthetic lucency is seen. Bony overgrowth seen along the right acetabular roof. Moderate to severe osteoarthritic change and joint space narrowing is noted in the left hip. There is degenerative sclerosis of the sacroiliac joints. Degenerative and postsurgical change is seen at the lumbosacral junction. Soft tissue edema overlies the right hip. There is advanced atherosclerotic calcification of the femoral arteries. Surgical clips are seen in the pelvis. IMPRESSION: 1. Acute fracture of the inferior right pubic ring. 2. No additional fracture is identified. 3. Postsurgical changes as above. Electronically signed by: Jim Ruff M.D. 06/04/2024 12:20 PM ECG Additional Comments: EKG reviewed - A fib with RVR at 108 bpm, non specific ST and T wave abnormalities Code Status & VTE Plan VTE Prophylaxis Plan VTE Prophylaxis will be ordered: Yes Supervising Physician Co-Signing Physician Notes 88-year-old female with PMH of A-fib on Eliquis, HTN, HLD, anxiety presented to the ED after a fall/right hip pain. Patient reports that while in kitchen, she remembers her legs giving out and falling. She denies any chest pain or funny sensation in the chest or lightheadedness prior to fall. She denies loss of consciousness. She has injuries on the right elbow and right hip, not sure how she landed but she was noted to be facedown on the floor. She is not aware when she fell but per patient's daughter she might have fallen today morning. She was calling for help, neighbors heard and found her facedown in the kitchen. Patient was noted to be conscious. Patient has not taken today's morning medication, she reports taking last evening medications. Patient denies fever/sore throat/cough/chest pain/belly pain/acute changes in bowel or bladder or appetite habits. Per daughter at bedside, patient is confused. Patient was oriented to place only at exam. Patient is generally alert and oriented x 3. Labs reviewed, fairly WNL, troponin WNL. UA suggestive of UTI. C-spine CT/right elbow x-ray/CT head with no acute finding. Right hip with inferior pub ic ring fracture. EKG with A-fib with RVR and rate 108. Active problems: A-fib RVR: Continue home dose of metoprolol. As needed IV metoprolol 5 mg every 4 hours for heart rate greater than 120. Continue telemetry monitoring. Hold Eliquis given right hip hematoma. Monitor H&H every 12 hours or as needed. Fall/right hip pain/Hematoma: Noted to be inferior pubic rami fracture. Orthopedic consult. Hematoma noted. Hold Eliquis. Pain management, bowel regimen. UTI, metabolic encephalopathy, sepsis: Heart rate and respiratory rate elevated at presentation in the setting of UTI. Follow urine culture, rocephin. Gentle IVF. Hypoxia: Patient was noted to be hypoxic in the 80s at bedside exam. Likely Induced secondary to fentanyl use in the ED. Wean down oxygen as tolerated. On exam: GENERAL: Alert and oriented x1. NAD, on 2L NC O2. appears old/frail/weak. HEENT: No pallor, no icterus. Pupils equal, round and reactive to light. Oral mucosa dry. NECK: No JVD, no neck masses. HEART: S1 and S2 heard. irregular rate and rhythm, rate in 110s. No murmur, no gallop. RESPIRATORY SYSTEM: Normal AP diameter. No accessory muscle use. No wheezing, no crackles. ABDOMEN: Soft, bowel sounds present, nontender, no distention. CENTRAL NERVOUS SYSTEM: No facial droop. Speech is clear. Obeys simple comma nds. Moves extremities. EXTREMITIES: No edema, no erythema seen. dry lower extremities. Addendum: Pt's BP dropped w/ use of cardizem drip, pt was again seen at bedside, patient was not feeling all right, patient was put on Trendelenburg position, she started to feel better, repeat EKG with A-fib RVR, repeat troponin sent. IV fluid started. BP improved while at bedside to 110/63. Will hold Cardizem drip, put her back on her scheduled metoprolol and as needed metoprolol. c/w IVF. I have seen and examined the patient and have discussed the case with the provider above. I agree with the assessment and plan as stated. (1) Fall Encounter type: initial encounter Qualified Code(s): W19.XXXA - Unspecified fall, initial encounter (3) Closed pelvic fracture Encounter type: initial encounter Laterality: right Pelvic bone location: pubis Sublocation of pubis: unspecified portion of pubis Qualified Code(s): S32.501A - Unspecified fracture of right pubis, initial encounter for closed fracture (6) Urinary tract infection Hematuria presence: without hematuria Urinary tract infection type: acute cystitis Qualified Code(s): N30.00 - Acute cystitis without hematuria
--- NOTE | 2024-06-04 13:35 | XRay Report ---
XR chest 1V portable HISTORY: fall COMPARISON: Chest 01/10/2024. FINDINGS: No pneumothorax. No pleural effusions. The heart remains mildly enlarged. There is a modera te hiatus hernia, unchanged. Calcifications within the aortic knob again noted. Old left-sided rib fr actures. No acute fractures identified. Mild chronic interstitial thickening persists. IMPRESSION: No significant change compared to the prior study. No acute process. ACT 112: Negative or not required by law. Electronically signed by: Federico Faye M.D. 06/04/2024 1:34 PM
[2024-06-04] MEDS: METOPROLOL SUCC 50MG EXT REL TAB PO STA (14:07)
[2024-06-04] MEDS: FLUoxetine HCL 20 MG CAP PO ONE (14:11)
[2024-06-04] MEDS: APIXABAN 2.5 MG TAB PO ONE (14:11)
[2024-06-04] MEDS: SODIUM CHLORIDE 0.9% 500 ML IV ONE (14:12)
[2024-06-04] MEDS: LIDOCAINE 5% 1 PATCH TD STA (14:18)
[2024-06-04 14:48] LABS: Magnesium 1.8 mg/dl (1.7-2.4)
--- NOTE | 2024-06-04 15:04 | Orthopedic Consultation ---
Date of Service June 04, 2024 Assessment & Plan (1) Closed pelvic fracture: She was seen and examined by Dr. Griffin. She has a right sided pelvis fracture as well as a lateral hip hematoma, which can be treated nonoperatively. She can weight bear as tolerated with a walker. It would be good to hold her eliquis for a couple of days if possible. Apply ice to the hematoma. PT/OT, wbat with walker. Follow up with orthopedics in approximately 1 month. History of Present Illness Reason for Consultation: . Requesting Physician: . Attending Physician: Fantasma Avilez MD .Ying is a 88 year old patient admitted with a right sided pelvis fracture. She apparently had a fall and was found by her neighbor. She has had several falls. She complains of pain mostly around the right lateral hip. She is about 4 years s/p right hip hemiarthroplasty and left hip cannulated screw fixation both done by doctors with [facility]. She normally ambulates with a walker. She is on eliquis for atrial fibrillation. Allergies Allergy/AdvReac Type Severity Reaction Status Date / Time Penicillins Allergy Unknown CAN'T Verified 06/04/24 12:49 REMEMBER propoxyphene Allergy Unknown CAN'T Verified 06/04/24 12:49 REMEMBER quinine Allergy Unknown CAN'T Verified 06/04/24 12:49 REMEMBER morphine AdvReac Severe extreme Verified 06/04/24 12:49 confusion Cephalosporins AdvReac Intermediate DIZZINESS Verified 06/04/24 12:49 & NAUSEA lisinopril AdvReac Intermediate COUGH Verified 06/04/24 12:49 simvastatin AdvReac Intermediate MUSCLE PAIN Verified 06/04/24 12:49 Home Medications Medication Instructions Recorded Confirmed Type atorvastatin 10 mg tablet 10 mg PO HS 04/19/20 06/04/24 History fluoxetine 20 mg capsule 20 mg PO QAM 04/19/20 06/04/24 History acetaminophen 325 mg tablet 650 mg (2 x 325 mg) PO Q6H PRN 04/22/20 06/04/24 Rx pain #50 tabs apixaban 2.5 mg tablet (Eliquis) 2.5 mg PO BID 11/21/22 06/04/24 History multivitamin 1 tab PO DAILY 11/21/22 06/04/24 History dextromethorphan-guaifenesin 30 1 tab PO Q12H PRN Congestion 01/10/24 06/04/24 History mg-600 mg tablet extended [id number] hr (Mucinex DM) metoprolol succinate 100 mg 100 mg PO BID 01/10/24 06/04/24 History tablet,extended release 24 hr Past Med/Surg History Problem List Acute metabolic encephalopathy Fall (Acute) Contusion of elbow, right (Acute) Atrial fibrillation with rapid ventricular response (Acute) Urinary tract infection (Acute) Closed pelvic fracture (Acute) Encephalopathy (Acute) Influenza Permanent atrial fibrillation Weakness (Acute) Elevated LFTs Anxiety UTI (urinary tract infection) (Acute) Pneumonia (Acute) Chronic atrial fibrillation (Acute) CKD (chronic kidney disease) stage 3, GFR 30-59 ml/min GERD (gastroesophageal reflux disease) HLD (hyperlipidemia) HTN (hypertension) Medical History Ambulatory dysfunction Closed fracture of right hip Surgical History History of total right hip replacement Hx of appendectomy History of hip surgery Left H/O spinal fusion Family History Other Diabetes Heart disease Hypertension Social History Smoking Status: Never smoker Second Hand Exposure: No; Do You Dip or Chew Tobacco: No; Hx Alcohol Use: No Hx Substance Use: No Preferred Language: Citizen Of [place] Communication Ability: Effective Three Knife Trimmer Required: No Beliefs That Will Affect Care: None marital status: / Current Living Situation: Alone Current Living Situation Comment: daughter sees her daily according to patient Feels Safe at Home: Yes Assistive Devices: Walker Review of Systems All systems reviewed & are unremarkable except as noted in HPI & below. Physical Exam . alert and oriented. NAD. No pain with range of motion of her upper extremities. She has obvious swelling around the right lateral hip area. Tender to palpation. Able to actively flex her hip and do a straight leg raise. Not really having groin pain with motion. Able to dorsiflex and plantarflex. NVI Results & Data Results & Data Laboratory Results . Diagnostic Findings .xrays of the pelvis shows a right inferior pubic ramus fracture. She a right hip hemiarthroplasty and left cannulated screws present. PG Care Time/CCT Total # of Minutes Spent Total Time Spent with Patient: Total time spent is greater than 50% in coordination of care (as documented) at patient's floor/unit and/or counseling patient: Coding Level of Care Code 92536 IN/OBS CONSULT LVL 3,45M Diagnoses Closed pelvic fracture S32.501A Encounter type: initial encounter Laterality: right Pelvic bone location: pubis Sublocation of pubis: unspecified portion of pubis (1) Closed pelvic fracture Encounter type: initial encounter Laterality: right Pelvic bone location: pubis Sublocation of pubis: unspecified portion of pubis Qualified Code(s): S32.501A - Unspecified fracture of right pubis, initial encounter for closed fracture
[2024-06-04] MEDS: ACETAMINOPHEN 500 MG TAB PO SCH (15:08)
[2024-06-04] MEDS: METOPROLOL TARTRATE 1 MG/ML VIAL IV PRN (15:09)
[2024-06-04] MEDS: ACETAMINOPHEN 500 MG TAB ONE (15:09)
[2024-06-04] MEDS ORDERED: ONDANSETRON INJ 2 MG/ML 2 ML VIAL IV PRN (15:43)
--- OUTSIDE RECORDS SUMMARY | 2024-06-04 15:54 | External Medical Summary | Summary of Care ---
Author Name Unknown Organization [facility] Address [address] [place] [address] Phone [phone] Care Team Providers Care Film Library Clerk Name Role Phone Redd Smiley DO Primary Care Provid er Reason for Visit * Reason Onset Date Comments Health Maintenance 05/18/2024 Encounter Details Date Type Department Care Team ([facility] st Contact Info) Description 05/18/[address] [address] Redd Smiley DO [address] [place] [id number] Health Maintenance Allergies Active Allergy Reactions Criticality Noted Date Comments Cephalosporins 12/05/2007 Dizziness and nausea Hydrochlorothiazide Abdominal pain 07/16/2018 Lisinopril Cough 01/30/2018 Morphine Psych complications High 05/23/2020 Penicillins 02/14/2001 Propoxyphene Napsylate 12/02/2001 Quinine Sulfate 02/16/2003 Simvastatin Muscle pain Medium 07/04/2010 documented as of this encounter (statuses as of 05/18/2024) Medications Medication Sig Dispensed Refills Start Date End Date Status Centrum Silver Adult 50+ Oral Tablet Take 1 Tablet by mouth in the morning. 100 Tab 07/15/2020 Active Atorvastatin Calcium 10 MG Oral Tablet (Lipitor)Indications: Dyslipidemia, goal to be determined TAKE 1 TABLET BY MOUTH DAILY 90 Tablet 3 09/21/2023 Active Eliquis 2.5 MG Oral Tablet (Apixaban)Indications :Paroxysmal atrial fibrillation (HCC) TAKE 1 TABLET BY MOUTH IN THE MORNING AND 1 BEFORE BEDTIME. 180 Tablet 2 10/26/2023 Active FLUoxetine HCl 20 MG Oral Capsule (PROzac)Indications:D epression with anxiety TAKE 1 CAPSULE BY MOUTH IN THE MORNING 90 Capsule 1 01/21/2024 Active Metoprolol Succinate ER 100 MG Oral Tablet Extended Release 24 Hour (toPROL XL)Indications:Chroni c atrial fibrillation (HCC) Take 1 Tablet by mouth in the morning and 1 Tablet before bedtime. 180 Tablet 1 01/28/2024 Active documented as of this encounter (statuses as of 05/18/2024) Active Problems Problem Noted Date Diagnosed Date [...] as of this encounter (statuses as of 05/18/2024) Resolved Problems Problem Noted Date Diagnosed Date [...] as of this encounter (statuses as of 05/18/2024) Immunizations Name Administration Dates Next Due Pneumococcal [...] money to get more. Never true 11/26/2022 Utilities Answer Date Recorded Do you have trouble paying y our heating, water, or electric bill? (Adult - for ages 18 years and over) Not on file 03/31/2024 Is your family able to pay t he heat, water, or electric bill? (Household - for ages 0-17 years) Not on file 03/31/2024 Does your family have access to good internet? (Household - for ages 0-17 years) Not on file 03/31/2024 Social Connections Answer Date Recorded How often do you feel lonely or isolated from those around you? (Adult - for ages 18 years and over) Not on file 03/31/2024 Sex and Gender Information Value Date Recorded Sex Assigned at Female 01/21/2019 9:59 AM EDT Gender Identity Female 01/21/2019 9:59 AM EDT Sexual Orientation Straight 01/21/2019 9: 59 AM EDT Job Start Date Occupation Industry Not on file Not on file Not on file documented as of this encounter Miscellaneous Notes * Telephone Encounter - Damaris Kraus LPN - 05/18/2024 1:15 PM EDT Care Gaps Comprehensive Care Outreach Last Office/Telemedicine Visit: 01/28/2024 (in office), Visit date not found (telemedicine) Next Office Visit: Visit date not found Hemoglobin AIC Results: No results found for: "HEMOGLOBIN A1C" BP Readings from Last 1 Encounters: 01/28/24 122/64 Reviewed Health Maintenance below: Health Maintenance Topic Date Due Zoster Vaccines (1 of 2) Never done DXA Scan 06/15/2019 COVID-19 Vaccine ( season) 2023 Depression Monitoring 01/16/2024 Influenza Vaccine (FLU shot) (1) 06/14/2024 Care Gap Outreach Action Taken: Left message [facility] recapture-due for next routine exam. documented in this encounter Plan of Treatment Health Maintenance Due Date Last Done Comments Zoster Vaccines (1 of 2) 1985 DXA Scan 06/15/2019 06/15/2016, 0812/2009, 08/30/2007, Additional history exists COVID-19 Vaccine ( season) 2023 02/21/2021, 01/24/2021 Depression Monitoring 01/16/2024 01/15/2023 Influenza Vaccine (FLU shot) (#1) 2024 07/10/2023, 07/11/2022, 07/11/2022, Additional history exists Albumin/Creatinine Ratio 02/05/2027 024, 07/09/2018, 03/11/2018 DTaP,Tdap,and Td Vaccines (2 - Td or Tdap) 07/16/2028 07/16/2018 (Refused), 06/11/2008, 06/11/2008 Pneumococcal Vaccine: 65+ Years Completed 05/24/2016, 11/12/2011 HPV (Gardasil) Vaccine Aged Out No lo nger eligible based on patient's age to complete this topic Hepatitis B Vaccine Aged Out No longe r eligible based on patient's age to complete this topic MENINGOCOCCAL (MENACTRA/MENVEO) Aged Out No longer eligible based on patient's age to complete this topic documented as of this encounter Medical Devices Not on filedocumented as of this encounter Advance Directives * No Code Status (Latest Code Status on File) Date Activated Date Inactivated Comments 05/23/2004 4:01 PM 05/23/2004 4:01 PM Care Teams Film Library Clerk Relationship Specialty Start Date End Date Redd Smiley DO [address] [place] [id number] PCP - General Internal Medicine 08/15/21 documented as of this encounter
--- OUTSIDE RECORDS SUMMARY | 2024-06-04 15:54 | External Medical Summary ---
Author Name UNSPECIFIED Address [facility] History of Encounters Reason for Assessment: Discharge from [facility] Inpatient Facility where the patient been admitted: No inpatient facility admission Discharge Disposition: Patient remained in the community (without formal assistive services) Functional Assessment When Dyspneic: When walking more th an 20 feet, climbing stairs Bowel Incontinence Frequency: Very rarel y or never has bowel incontinence Cognitive and Behavioral and Psychiatric Symptoms: None Current Ability: Bathing: With the use o f devices, is able to bathe self in shower or tub independently, including getting in and out of the tub/shower. Current Ability: Ambulation: Requires us e of a two-handed device (e.g., walker or crutches) to walk alone on a level surface and/or requires human supervision or assistance to negotiate stairs or steps or uneven surfaces. Current: Management Of Oral Medications: Able to take medication(s) at the correct times if: (a) individual dosages are prepared in advance by another person; OR (b) another person develops a drug diary or chart
--- OUTSIDE RECORDS SUMMARY | 2024-06-04 15:54 | External Medical Summary | Summary of Care ---
Author Name Unknown Organization [facility] Address [address] [place] [address] Phone [phone] Care Team Providers Care Founder President And Ceo Name Role Phone MiladRedd sahu Primary Care Provid er Reason for Visit * Reason Onset Date Comments [facility]: Engagement 05/08/2024 Encounter Details Date Type Department Care Team (Late st Contact Info) Description 05/08/2024 Telephone [facility] [place] [address] [place] [address] [phone] Services, Scheduling [address] [place] [address] [facility]: Engagement Allergies Active Allergy Reactions Criticality Noted Date Comments Cephalosporins 12/05/2007 Dizziness and nausea Hydrochlorothiazide Abdominal pain 07/16/2018 Lisinopril Cough 01/30/2018 Morphine Psych complications High 05/23/2020 Penicillins 02/14/2001 Propoxyphene Napsylate 12/02/2001 Quinine Sulfate 02/16/2003 Simvastatin Muscle pain Medium 07/04/2010 documented as of this encounter (statuses as of 05/08/2024) Medications Medication Sig Dispensed Refills Start Date [...] as of this encounter (statuses as of 05/08/2024) Active Problems Problem Noted Date Diagnosed Date [...] as of this encounter (statuses as of 05/08/2024) Resolved Problems Problem Noted Date Diagnosed Date [...] as of this encounter (statuses as of 05/08/2024) Immunizations Name Administration Dates Next Due Pneumococcal [...] encounter Miscellaneous Notes * Telephone Encounter - Chiara Chand OSA - 05/08/2024 1:41 PM EDT [facility] Enrollment Form Screening: Referral Source: Monthly Proactive Eligibility List Primary Reason for Referral (Select most relevant): No data was found Engagement: Engagement Attempt 1: Unable to contact Engagement Attempt 2: No data was found Home Information: No data was found Advance Care Planning (ACP): No data was found Has Living Will or Advance Directive: No data was found Anticipated Sub-Program: Short-Term Management (less than 3 months) Confirmation of Sub-Program Type (by care steam pan sponger): No data was found Handoff Information: Current care team notified via: No data was found Current telemonitoring equipment: No data was found Called and lmom UTC but found the following 05/19@1230 with Motta and 05/27@830 for Lucho documented in this encounter Plan of Treatment [...] 4:01 PM 05/23/2004 4:01 PM Care Teams Founder President And Ceo Relationship Specialty Start Date End Date Redd Smiley DO [address] [place] [phone] PCP - General Internal Medicine 08/15/21 documented as of this encounter
--- OUTSIDE RECORDS SUMMARY | 2024-06-04 15:54 | External Medical Summary | Summary of Care ---
Author Name Unknown Organization [facility] Address [address] [place] [address] Phone [phone] Care Team Providers Care Corrective Therapist Name Role Phone Leodan Ramsay MD Primary Care Provi elizabeth Reason for Visit * Reason Onset Date Comments [facility]: Engagement 06/02/2024 Encounter Details Date Type Department Care Team (Late st Contact Info) Description 06/02/2024 Telephone [facility], [place] [address] [place] [address] [phone] Services, Scheduling [address] [place] [address] [facility]: Engagement Allergies Active Allergy Reactions Criticality Noted Date Comments Cephalosporins 12/05/2007 Dizziness and nausea Hydrochlorothiazide Abdominal pain 07/16/2018 Lisinopril Cough 01/30/2018 Morphine Psych complications High 05/23/2020 Penicillins 02/14/2001 Propoxyphene Napsylate 12/02/2001 Quinine Sulfate 02/16/2003 Simvastatin Muscle pain Medium 07/04/2010 documented as of this encounter (statuses as of 06/02/2024) Medications Medication Sig Dispensed Refills Start Date [...] as of this encounter (statuses as of 06/02/2024) Active Problems Problem Noted Date Diagnosed Date [...] as of this encounter (statuses as of 06/02/2024) Resolved Problems Problem Noted Date Diagnosed Date [...] as of this encounter (statuses as of 06/02/2024) Immunizations Name Administration Dates Next Due Pneumococcal [...] encounter Miscellaneous Notes * Telephone Encounter - Radha Nguyen OSA - 06/02/2024 9:59 AM EDT [facility] Engagement Attempt Engagement: Engagement Attempt 1: Unable to contact Engagement Attempt 2: Contacted - Declined home-based services Declined reason: No data was found Home Information: No data was found Advance Care Planning (ACP): No data was found Has Living Will or Advance Directive: No data was found Anticipated Sub-Program: Short-Term Management (less than 3 months) Confirmation of Sub-Program Type (by care steam pipe fitter): No data was found Handoff Information: Current care team notified via: No data was found Current telemonitoring equipment: No data was found documented in this encounter Plan of Treatment Upcoming Encounters Date Type Department Care Team ([facility] st Contact Info) Description 06/19/2024 11:30 AM EDT Office Visit Podiatry [facility] [address] [place] [address] Ruben Diallo, LITA [address] [place], [place] [phone] 07/10/2024 2:00 PM EDT Office Visit Family Practice [facility] [address] [place] [address] Leodan Ramsay MD [address] [place] [address] Health Maintenance Due Date Last Done Comments Zoster Vaccines (1 of 2) 1985 Adult Wellness Visit 12/17/2017 12/17/2016 DXA Scan 06/15/2019 06/15/2016, 0812/2009, 08/30/2007, Additional [...] 4:01 PM 05/23/2004 4:01 PM Care Teams Corrective Therapist Relationship Specialty Start Date End Date Leodan Ramsay MD [address] [place] [phone] PCP - General Family Medicine 05/20/24 documented as of this encounter
--- OUTSIDE RECORDS SUMMARY | 2024-06-04 15:54 | External Medical Summary | Summary of Care ---
Author Name Unknown Organization [facility] Address [address] [place] [address] Phone [phone] Care Team Providers Care Enrollment Services Dean Name Role Phone Redd Smiley DO Primary Care Provid er Reason for Visit * Reason Onset Date Comments Health Maintenance 05/18/2024 Encounter Details Date Type Department Care Team ([facility] st Contact Info) Description 05/18/[address] [phone] Redd Smiley DO [address] [place] [phone] Health Maintenance Allergies Active Allergy Reactions Criticality Noted Date Comments Cephalosporins 12/05/2007 Dizziness and nausea Hydrochlorothiazide Abdominal pain 07/16/2018 Lisinopril Cough 01/30/2018 Morphine Psych complications High 05/23/2020 Penicillins 02/14/2001 Propoxyphene Napsylate 12/02/2001 Quinine Sulfate 02/16/2003 Simvastatin Muscle pain Medium 07/04/2010 documented as of this encounter (statuses as of 05/19/2024) Medications Medication Sig Dispensed Refills Start Date [...] as of this encounter (statuses as of 05/19/2024) Active Problems Problem Noted Date Diagnosed Date [...] as of this encounter (statuses as of 05/19/2024) Resolved Problems Problem Noted Date Diagnosed Date [...] as of this encounter (statuses as of 05/19/2024) Immunizations Name Administration Dates Next Due Influenza, [...] Telephone Encounter - Damaris Kraus LPN - 05/19/2024 11:10 AM EDT Pt returned call. Left message in return. * Telephone Encounter - Damaris Kraus LPN [...] 4:01 PM 05/23/2004 4:01 PM Care Teams Enrollment Services Dean Relationship Specialty Start Date End Date Redd Smiley DO [address] [place] [address] PCP - General Internal Medicine 08/15/21 documented as of this encounter
--- OUTSIDE RECORDS SUMMARY | 2024-06-04 15:54 | External Medical Summary | Summary of Care ---
Author Name Unknown Organization [facility] Address [address] [place] [address] Phone [phone] Care Team Providers Care American History Teacher Name Role Phone Leodan Ramsay MD Primary Care Provi elizabeth Reason for Visit * Reason Onset Date Comments Health Maintenance 05/18/2024 Encounter Details Date Type Department Care Team ([facility] st Contact Info) Description 05/18/2024 Telephone Family [address] [address] Redd Smiley, [address] [address] Health Maintenance Allergies Active Allergy Reactions Criticality Noted Date Comments Cephalosporins 12/05/2007 Dizziness and nausea Hydrochlorothiazide Abdominal pain 07/16/2018 Lisinopril Cough 01/30/2018 Morphine Psych complications High 05/23/2020 Penicillins 02/14/2001 Propoxyphene Napsylate 12/02/2001 Quinine Sulfate 02/16/2003 Simvastatin Muscle pain Medium 07/04/2010 documented as of this encounter (statuses as of 05/20/2024) Medications Medication Sig Dispensed Refills Start Date [...] as of this encounter (statuses as of 05/20/2024) Active Problems Problem Noted Date Diagnosed Date [...] as of this encounter (statuses as of 05/20/2024) Resolved Problems Problem Noted Date Diagnosed Date [...] as of this encounter (statuses as of 05/20/2024) Immunizations Name Administration Dates Next Due Influenza, [...] Telephone Encounter - Damaris Kraus LPN - 05/20/2024 4:12 PM EDT Spoke to daughter. Routine exam scheduled. Podiatry appt rescheduled per her request. * Telephone Encounter - Damaris Kraus LPN [...] Upcoming Encounters Date Type Department Care Team ([facility] Contact Info) Description 06/19/2024 11:30 AM EDT Office Visit Podiatry [address] [place] [address] Ruben Diallo, LITA [address] [place] [address] 07/10/2024 2:00 PM EDT Office Visit Family Practice [address] [phone] Leodan Ramsay MD [address] [place] [phone] Health Maintenance Due Date Last Done Comments Zoster Vaccines (1 of 2) 1985 Adult Wellness Visit 12/17/2017 12/17/2016 DXA Scan 06/15/2019 06/15/2016, 08/0 12/2009, 08/30/2007, Additional history exists COVID-19 Vaccine ( [...] 4:01 PM 05/23/2004 4:01 PM Care Teams American History Teacher Relationship Specialty Start Date End Date Leodan Ramsay MD [address] [place] [phone] PCP - General Family Medicine 05/20/24 documented as of this encounter
--- OUTSIDE RECORDS SUMMARY | 2024-06-04 15:54 | External Medical Summary | Summary of Care ---
Author Name Unknown Organization [facility] Address [address] [facility] [place] [address] Phone [phone] Care Team Providers Care Bilingual Manager Name Role Phone MiladRedd sahu Primary Care Provid er Reason for Visit * Reason Onset Date Comments [facility]: Screening 05/06/2024 Encounter Details Date Type Department Care Team (Late st Contact Info) Description 05/06/2024 Telephone [facility], [facility] [address] [facility] [place] [phone] [facility] [address] [facility] [place] [phone] [facility]: Screening Allergies Active Allergy Reactions Criticality Noted Date Comments Cephalosporins 12/05/2007 Dizziness and nausea Hydrochlorothiazide Abdominal pain 07/16/2018 Lisinopril Cough 01/30/2018 Morphine Psych complications High 05/23/2020 Penicillins 02/14/2001 Propoxyphene Napsylate 12/02/2001 Quinine Sulfate 02/16/2003 Simvastatin Muscle pain Medium 07/04/2010 documented as of this encounter (statuses as of 05/06/2024) Medications Medication Sig Dispensed Refills Start Date [...] as of this encounter (statuses as of 05/06/2024) Active Problems Problem Noted Date Diagnosed Date [...] as of this encounter (statuses as of 05/06/2024) Resolved Problems Problem Noted Date Diagnosed Date [...] as of this encounter (statuses as of 05/06/2024) Immunizations Name Administration Dates Next Due Pneumococcal [...] encounter Miscellaneous Notes * Telephone Encounter - Jenni Joseph LPN - 05/06/2024 2:29 PM EDT Ying Rogers was referred as a potential candidate for enrollment for [facility]. A review of this chart was completed and: Ying meets criteria for [facility]. Jump to Initiation Referring care team was notified via : Epic communication documented in this encounter Plan of Treatment Health Maintenance Due Date Last Done Comments Zoster Vaccines (1 of 2) 1985 DXA Scan 06/15/2019 06/15/2016, 08/12/2009, 08/30/2007, Additional history exists COVID-19 Vaccine (3 - 2022- season) 2023 02/21/2021, 01/24/2021 Depression Monitoring 01/16/2024 [...] 4:01 PM 05/23/2004 4:01 PM Care Teams Bilingual Manager Relationship Specialty Start Date End Date Redd Smiley DO [address] [place] [id number] PCP - General Internal Medicine 08/15/21 documented as of this encounter
--- OUTSIDE RECORDS SUMMARY | 2024-06-04 15:54 | External Medical Summary | Summary of Care ---
Author Name Unknown Organization [facility] Address [address] [place] [address] Phone [phone] Care Team Providers Care Vegetable Harvest Machine Operator Name Role Phone Redd Smiley Primary Care Provid er Encounter Details Date Type Department Care Team (Late st Contact Info) Description 03/19/2024 Population Health External Data Unspecified Department Allergies Active Allergy Reactions Criticality Noted Date Comments Cephalosporins 12/05/2007 Dizziness and nausea Hydrochlorothiazide Abdominal pain 07/16/2018 Lisinopril Cough 01/30/2018 Morphine Psych complications High 05/23/2020 Penicillins 02/14/2001 Propoxyphene Napsylate 12/02/2001 Quinine Sulfate 02/16/2003 Simvastatin Muscle pain Medium 07/04/2010 documented as of this encounter (statuses as of 03/19/2024) Medications Medication Sig Dispensed Refills Start Date End Date Status Centrum [place] Adult 50+ Oral Tablet Take 1 Tablet [...] as of this encounter (statuses as of 03/19/2024) Active Problems Problem Noted Date Diagnosed Date [...] as of this encounter (statuses as of 03/19/2024) Resolved Problems Problem Noted Date Diagnosed Date [...] as of this encounter (statuses as of 03/19/2024) Immunizations Name Administration Dates Next Due Pneumococcal [...] as of this encounter Plan of Treatment Health Maintenance Due Date Last Done Comments Zoster Vaccines (1 of 2) 1985 DXA Scan 06/15/2019 06/15/2016, 0812/2009, 08/30/2007, Additional history exists COVID-19 Vaccine ( season) 2023 02/21/2021, 01/24/2021 Albumin/Creatinine Ratio 02/05/2027 024, 07/09/2018, 03/11/2018 DTaP,Tdap,and [...] Not on filedocumented as of this encounter Additional Health Concerns 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
--- OUTSIDE RECORDS SUMMARY | 2024-06-04 15:55 | External Medical Summary | Summary of Care ---
Author Name Unknown Organization [facility] Address [address] [place] [facility] [place] [address] Phone [phone] Care Team Providers Care Hospital Ward Clerk Name Role Phone Redd Smiley DO Primary Care Provid er Encounter Details Date Type Department Care Team ([facility] st Contact Info) Description 02/10/[address] [phone] Redd Smiley DO [address] [place] [address] Allergies Active Allergy Reactions Criticality Noted Date Comments Cephalosporins 12/05/2007 Dizziness and nausea Hydrochlorothiazide Abdominal pain 07/16/2018 Lisinopril Cough 01/30/2018 Morphine Psych complications High 05/23/2020 Penicillins 02/14/2001 Propoxyphene Napsylate 12/02/2001 Quinine Sulfate 02/16/2003 Simvastatin Muscle pain Medium 07/04/2010 documented as of this encounter (statuses as of 02/10/2024) Medications Medication Sig Dispensed Refills Start Date End Date Status Centrum Silver Adult 50+ Oral Tablet Take 1 Tablet by mouth in the morning. 100 Tab 0 07/15/2020 Active Atorvastatin Calcium 10 MG Oral [...] as of this encounter (statuses as of 02/10/2024) Active Problems Problem Noted Date Diagnosed Date [...] as of this encounter (statuses as of 02/10/2024) Resolved Problems Problem Noted Date Diagnosed Date [...] as of this encounter (statuses as of 02/10/2024) Immunizations Name Administration Dates Next Due Influenza, [...] as of this encounter Progress Notes * Petra Sanches OSA - 02/10/2024 2:46 PM EDT Pt's daughter returning call. Can call her back at [phone]. Pt is at work and might not hear the phone. Okay to leave detailed message. * Redd Smiley DO - 02/10/2024 1:27 PM EDT Patient was previously in the hospital at [facility] due to UTI that grew Pseudomonas. Her daughter Daphne had called into the office stating that she was acting confused which is typically a sign of UTI in her case A UA/culture was repeated. This time grew out vancomycin resistant Enterococcus. Only potential oral therapy would be linezolid. Ask a doc placed to ID to confirm best treatment Message left for daughter on the phone documented in this encounter Plan of Treatment Health Maintenance Due Date Last Done Comments Zoster Vaccines (1 of 2) 1985 DXA Scan 06/15/2019 06/15/2016, 08/12/2009, 08/30/2007, Additional history exists COVID-19 Vaccine ( [...] documented as of this encounter Advance Directives Latest Code Status on File Code Status Date Activated Date Inactivated Comments None 05/23/2004 4:01 PM 05/23/2004 4:01 PM Care Teams Hospital Ward Clerk Relationship Specialty Start Date End Date Redd Smiley DO [address] [place] [id number] PCP - General Internal Medicine 08/15/21 documented as of this encounter
--- OUTSIDE RECORDS SUMMARY | 2024-06-04 15:55 | External Medical Summary | Summary of Care ---
Author Name Unknown Organization [facility] Address [address] [place] [address] Phone [phone] Care Team Providers Care District Branch Manager Name Role Phone Redd Smiley DO Primary Care Provid er Reason for Visit * Reason Onset Date Comments Home Health 02/05/2024 UTI symptoms -- Order Request Encounter Details Date Type Department Care Team ([facility] Contact Info) Description 02/05/2024 Telephone Family [address] [address] Redd Smiley DO [address] [place] [address] Home Health (UTI symptoms -- Order Request ) Allergies Active Allergy Reactions Criticality Noted Date [...] 02/10/2024) Immunizations Name Administration Dates Next Due Pneumococcal [...] encounter Miscellaneous Notes * Telephone Encounter - Natacha Marshall LPN - 02/05/2024 3:46 PM EDT [facility], received confirmation that the transmission was successful. Contacted patients daughter Daphne. Informed of Dr. Smiley's message. Ny didn't get a urine specimen, she didn't have a specimen cup. Nursing is going to bring a specimen cup tomorrow, but Daphne doesn't know when Daphne is going to come to the lab now and get the specimen cup, she will then go to her mother's hometo get the sample and return to the clinic for the clinic nurse to draw a culture and do the UA. * Telephone Encounter - Redd Smiley DO - 02/05/2024 1:27 PM EDT Urinalysis/urine culture ordered Her urine culture from recent hospital stay at [facility] grew Pseudomonas. Need to confirm if this bacteria is present again There is not a preventative antibiotic that would protect against this bacteria * Telephone Encounter - Natacha Marshall LPN - 02/05/2024 12:54 PM EDT HH Concerns Ny SALINAS, [place] [facility] [place]/Concerns of: Fall - last weekend (no injuries) -- UTI symptoms today. Symptoms: mild confusion, weakness - typically UTI symptoms Vitals: T 98.4 P 88 RR 18 BP 138/84 SP O2 99% on room air Lung sounds - clear throughout Narrative: Ny SALINAS [place] [facility] She currently with the patient and her daughter. Patient had a fall over the weekend (didn't hit her head, no injury). Ying didn't take her meds appropriately due to confusion. She 500mg of Metoprolol. Patient's daughter Daphne contacted her brother who is a nurse to inform him that patient took 500mg and he advised her what to monitor, patient didn't have any adverse reactions. Daughter reported "she did the exact same thing with her last UTI" Woke today with weakness, foggy, dizziness. Symptoms at the time of the call - mild confusion, weakness of her legs. Denies feeling like she is going to pass out, able to walk, but experiences the weakness of her legs. Ny reports that the patient gets frequent UTI's. Most recent [facility] admission 01/09-01/16 for Flu B, UTI and acute metabolic encephalopathy. At patient's hospital DC appt on 01/27 patients daughter had asked about a preventative abx for recurrent UTIs. Laura Krishnamurthy PA-C advised she would discuss with Dr. Smiley when her returned. Ny is requesting an order for a UA/C&S. She is going to collect a urine while she is there. Ny informed Daphne (daughter) of signs and symptoms that warrant her needing to go to the ER. PT saw patient yesterday, she did exercises and walked outside without difficulty. nurses seeing patient 1-2 weekly. Please advise. Pharmacy confirmed. Call back Daphne (daughter) with any advice/new scripts. Please fax new orders to [facility] [phone]. * Telephone Encounter - Gabriela Ferguson OSA - 02/05/2024 12:52 PM EDT Reason for patient's call: order requests for patient Caller was transferred to Natacha at the nurse line. documented in this encounter Plan of Treatment Health Maintenance Due Date Last Done Comments Zoster Vaccines (1 of 2) 1984 DXA Scan 06/15/2019 06/15/2016, 12/2009, 08/30/2007, Additional history exists COVID-19 Vaccine [...] Not on filedocumented as of this encounter Results * (ABNORMAL) CULTURE, URINE, QUANTITATIVE (02/06/2024 8:10 AM EDT) Culture Growth 10,000 to 100,000 colonies/mL Enterococcus faecium VRE, This patient may require isolation.(A) MICROBROTH DILUTIONS 02/10/2024 12:46 PM EDT [facility] Urine Urine specimen obtained by clean catch procedure / Unknown Non-blood Collection / Unknown 02/06/2024 8:10 AM EDT 02/06/2024 8:10 AM EDT [facility] - 02/10/2024 12:46 PM EDT <10,000 colonies/ml mixed normal booker Organism Antibiotic Method Susceptibility Enterococcus faecium VRE, Th is patient may require isolation. Ampicillin MICROBROTH DILUTIONS >=32: Resistant Enterococcus faecium VRE, Th is patient may require isolation. Nitrofurantoin MICROBROTH DILUTIONS 128: Resistant Enterococcus faecium VRE, Th is patient may require isolation. Tetracycline MICROBROTH DILUTIONS >=16: Resistant Enterococcus faecium VRE, Th is patient may require isolation. Vancomycin MICROBROTH DILUTIONS >=32: Resistant Redd Smiley DO LAB MICRO - GENERAL ORDERABLES [facility] [address] [place] [address] * (ABNORMAL) URINALYSIS, REFLEX TO MICROSCOPIC (02/06/2024 8:10 AM EDT) Color, Urine Light Yellow Colorless, Light Yellow, Yellow, Dark Yellow 02/06/2024 5:48 PM EDT [facility] Clarity, Urine Clear Clear 02/06/2024 5:48 PM EDT [facility] Glucose, Urine Negative Negative mg/dL 02/06/2024 5:48 PM EDT [facility] Bilirubin, Urine Negative Negative 02/06/2024 5:48 PM EDT [facility] Ketone, Urine Negative Negative mg/dL 02/06/2024 5:48 PM EDT [facility] Specific [place], Urine 1.010 1.003 - 1.030 02/06/2024 5:48 PM EDT [facility] Blood, Urine Negative Negative 02/06/2024 5:48 PM EDT [facility] pH, Urine 7.5 5.0 - 7.5 Units 02/06/2024 5:48 PM EDT [facility] Protein, Urine Negative Negative mg/dL 02/06/2024 5:48 PM EDT [facility] Urobilinogen, Urine Normal Normal mg/dL 02/06/2024 5:48 PM EDT [facility] Nitrite, Urine Negative Negative 02/06/2024 5:48 PM EDT [facility] Esterase, Urine Moderate(A) Negative 02/06/2024 5:48 PM EDT [facility] RBC, Urine 0-2 0 - 2 /HPF 02/06/2024 5:48 PM EDT [facility] WBC, Urine 6-9(A) 0 - 2 /HPF 02/06/2024 5:48 PM EDT [facility] Bacteria, Urine 0-25 0 - 25 /HPF 02/06/2024 5:48 PM EDT [facility] Urine Urine specimen obtained by clean catch procedure / Unknown Non-blood Collection / Unknown 02/06/2024 8:10 AM EDT 02/06/2024 8:10 AM EDT Redd Smiley DO LAB URINE OR DERABLES [facility] [address] [place] [address] documented in this encounter Visit Diagnoses Diagnosis Delirium- Primary Other alteration of consciousness documented in this encounter Advance Directives Latest Code Status on File Code Status Date Activated Date Inactivated Comments None 05/23/2004 4:01 PM 05/23/2004 4:01 PM Care Teams District Branch Manager Relationship Specialty Start Date End Date Redd Smiley DO [address] [place] [id number] PCP - General Internal Medicine 08/15/21 documented as of this encounter
--- OUTSIDE RECORDS SUMMARY | 2024-06-04 15:55 | External Medical Summary ---
Author Name UNSPECIFIED Address Unknown Organization [facility] History of Encounters Reason for Assessment: Resumption of car e (after inpatient stay) Inpatient discharge facility: Past 14 Da ys: Discharged From [facility] Inpatient discharge facility: Past 14 Da ys: Discharged from [facility] Facility Most Recent Inpatient Discharge Date: Functional Assessment Patient Living Situation: Patient Lives Alone: Regular daytime When Dyspneic: When walking more th an 20 feet, climbing stairs Bowel Incontinence Frequency: Very rarel y or never has bowel incontinence Cognitive Functioning: Requires promptin g (cueing, repetition, reminders) only under stressful or unfamiliar conditions. When Confused (Reported or Observed): In new or complex situations only Cognitive and Behavioral and Psychiatric Symptoms: None Current Ability: Bathing: able to partic ipate in bathing self in shower or tub, but requires presence of another person throughout the bath for assistance or supervision. Current Ability: Ambulation: Requires us e of [...] person develops a drug diary or chart Procedures Treated for Urinary Tract Infection in P ast 14 Days: Yes Problems Primary Home Care Diagnosis ICD Code: I4 8.20^^ Home Care Diagnosis 1: ICD Code: R26.9, Unspecified abnormalities of gait and mobility Home Care Diagnosis 1: Severity Ratin Home Care Diagnosis 2: ICD Code: I10., E ssential (primary) hypertension Home Care Diagnosis 2: Severity Ratin Home Care Diagnosis 3: ICD Code: F41.8, Other specified anxiety disorders Home Care Diagnosis 3: Severity Ratin Home Care Diagnosis 4: ICD Code: E78.5, Hyperlipidemia, unspecified Home Care Diagnosis 4: Severity Ratin Home Care Diagnosis 5: ICD Code: Z87.440 , Personal history of urinary (tract) infections
--- OUTSIDE RECORDS SUMMARY | 2024-06-04 15:55 | External Medical Summary | Summary of Care ---
Author Name Unknown Organization [facility] Address [address] [place] [address] Phone [phone] Care Team Providers Care Supply Chain Specialist Name Role Phone Redd Smiley DO Primary Care Provid er Reason for Visit * Reason Onset Date Comments Forms Request 02/25/2024 Encounter Details Date Type Department Care Team ([facility] Contact Info) Description 02/25/[address] [phone] Redd Smiley DO [address] [place] [address] Forms Request Allergies Active Allergy Reactions Criticality Noted Date Comments Cephalosporins 12/05/2007 Dizziness and nausea Hydrochlorothiazide Abdominal pain 07/16/2018 Lisinopril Cough 01/30/2018 Morphine Psych complications High 05/23/2020 Penicillins 02/14/2001 Propoxyphene Napsylate 12/02/2001 Quinine Sulfate 02/16/2003 Simvastatin Muscle pain Medium 07/04/2010 documented as of this encounter (statuses as of 03/05/2024) Medications Medication Sig Dispensed Refills Start Date [...] as of this encounter (statuses as of 03/05/2024) Active Problems Problem Noted Date Diagnosed Date [...] as of this encounter (statuses as of 03/05/2024) Resolved Problems Problem Noted Date Diagnosed Date [...] as of this encounter (statuses as of 03/05/2024) Immunizations Name Administration Dates Next Due Pneumococcal [...] encounter Miscellaneous Notes * Telephone Encounter - Rosio Reece OSA - 03/05/2024 9:57 AM EDT Forms faxed. * Telephone Encounter - Redd Smiley DO - 03/04/2024 2:48 PM EDT Form completed. 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 documented in this encounter Plan of Treatment Health Maintenance Due Date Last Done Comments Zoster Vaccines (1 of 2) 1984 DXA Scan 06/15/2019 06/15/2016, 08/0 12/2009, 08/30/2007, Additional history exists COVID-19 Vaccine (3 season) 2023 02/21/2021, 01/24/2021 Albumin/Creatinine Ratio 02/05/2027 [...] 4:01 PM 05/23/2004 4:01 PM Care Teams Supply Chain Specialist Relationship Specialty Start Date End Date Redd Smiley DO [address] [place] [id number] PCP - General Internal Medicine 08/15/21 documented as of this encounter
--- OUTSIDE RECORDS SUMMARY | 2024-06-04 15:55 | External Medical Summary | Summary of Care ---
Author Name Unknown Organization [facility] Address [address] [place] [address] Phone [phone] Care Team Providers Care Diet Assistant Name Role Phone Redd Smiley DO Primary Care Provid er Reason for Visit * Reason Onset Date Comments Home Health 02/05/2024 UTI symptoms -- Order Request Encounter Details Date Type Department Care Team ([facility] Contact Info) Description 02/05/2024 Telephone Family [address] [address] Redd Smiley DO [address] [place] [address] Home Health (UTI symptoms -- Order Request ) Allergies Active Allergy Reactions Criticality Noted Date Comments Cephalosporins 12/05/2007 Dizziness and nausea Hydrochlorothiazide Abdominal pain 07/16/2018 Lisinopril Cough 01/30/2018 Morphine Psych complications High 05/23/2020 Penicillins 02/14/2001 Propoxyphene Napsylate 12/02/2001 Quinine Sulfate 02/16/2003 Simvastatin Muscle pain Medium 07/04/2010 documented as of this encounter (statuses as of 02/05/2024) Medications Medication Sig Dispensed Refills Start Date [...] as of this encounter (statuses as of 02/05/2024) Active Problems Problem Noted Date Diagnosed Date [...] as of this encounter (statuses as of 02/05/2024) Resolved Problems Problem Noted Date Diagnosed Date [...] as of this encounter (statuses as of 02/05/2024) Immunizations Name Administration Dates Next Due Pneumococcal [...] urine culture from recent hospital stay at [facility] grew Pseudomonas. Need to confirm if this bacteria is present again There is not a preventative antibiotic that would protect against this bacteria * Telephone Encounter - Natacha Marshall LPN - 02/05/2024 12:54 PM EDT HH Concerns Ny SALINAS, Calling from: [facility] Report/Concerns of: Fall - last weekend (no injuries) -- UTI symptoms today. Symptoms: mild confusion, weakness - typically UTI symptoms Vitals: T 98.4 P 88 RR 18 BP 138/84 SP O2 99% on room air Lung sounds - clear throughout Narrative: Ny SALINAS calling from [facility]. She currently with the patient and her [...] the patient gets frequent UTI's. Most recent [facility] admission 01/09-01/16 for Flu B, UTI [...] advice/new scripts. Please fax new orders to [facility] [phone]. * Telephone Encounter - Gabriela Ferguson OSA - 02/05/2024 12:52 PM EDT Reason for patient's call: order requests for patient Caller was transferred to Natacha at the nurse line. documented in this encounter Plan of Treatment Scheduled Orders Name Type Priority Associated Diagnoses Orde r Schedule URINALYSIS, REFLEX TO MICROSCOPIC Lab Routine Delirium Expected: 02/05/2024, Expires: 02/04/2025 CULTURE, URINE, QUANTITATIVE Lab Routine Delirium Expected: 02/05/2024, Expires: 02/04/2025 Health Maintenance Due Date Last Done Comments Zoster Vaccines (1 of 2) 1984 DXA Scan 06/15/2019 06/15/2016, 0812/2009, 08/30/2007, Additional history exists Albumin/Creatinine Ratio 07/09/2021 07/09/2018, 02/12 COVID-19 Vaccine ( season) 2023 02/21/2021, 01/24/2021 DTaP,Tdap,and Td Vaccines (2 - Td or [...] as of this encounter Visit Diagnoses Diagnosis Delirium- Primary Other alteration of consciousness documented in this encounter Advance Directives Latest Code Status on File Code Status Date Activated Date Inactivated Comments None 05/23/2004 4:01 PM 05/23/2004 4:01 PM Care Teams Diet Assistant Relationship Specialty Start Date End Date Redd Smiley DO [address] [place] [address] PCP - General Internal Medicine 08/15/21 documented as of this encounter
--- OUTSIDE RECORDS SUMMARY | 2024-06-04 15:55 | External Medical Summary ---
Author Name Unknown Address Unknown Organization [id number]:[facility] - [address] [place] [address] Laboratory Report Ordering Provider Test Date Status CHARLIE HYLTON 02/06/2024 08:10:22 Final <10,000 colonies/ml mixed no rmal booker Observation Date Value Abnormality Reference (Units ) Status Bacteria identified in Specimen by Culture 02/06/2024 08:10:22 [id number]^ENTEROC OCCUS FAECIUM VRE Abnormal Final 10,000 to 100,000 colonies/m L Enterococcus faecium VRE, This patient may require isolation. Performing Location [facility] - [address] [place] [address] Ordering Provider Test Date Status CHARLIE HYLTON 02/06/2024 08:10:22 Final Observation Date Value Abnormality Reference (Units ) Status Ampicillin 02/06/2024 08:10:22 >=32 Resistant Final Nitrofurantoin susceptibility 02/06/2024 08:10:22 128 Resistant Final Tetracyclinesusceptibility 02/06/2024 08:10:22 >=16 Resistant Final Vancomycinsusceptibility 02/06/2024 08:10:22 >=32 Resistant Final Test: Culture, Urine, Quanti tative
Specimen Source: Urine, Clean Catch
Specimen Type: Urine
Specimen Date: 02/06/2024 8:10 AM
Result Date: 02/10/2024 12:46 PM
Result Status: Final result
Abnormal: Yes
Resulting Lab: [facility]ATORY [facility]
[address]
[place] [address]

CULTURE

10,000 to 100,000 colonies/mL Enterococcus faecium VRE, This patient may require
isolation. (Abnormal)

<10,000 colonies/ml mixed normal booker

SUSCEPTIBILITY

Enterococcus
faecium VRE,
This patient
may require
isolation.
METHOD MICROBROTH
DILUTIONS

AMPICILLIN >=32 Resistant
NITROFURANTOIN 128 Resistant
TETRACYCLINE >=16 Resistant
VANCOMYCIN >=32 Resistant

[facility] Performing Location [facility] - [address] [facility] [address]
--- OUTSIDE RECORDS SUMMARY | 2024-06-04 15:55 | External Medical Summary | Summary of Care ---
Author Name Unknown Organization [facility] Address [address] [place] [address] Phone [phone] Care Team Providers Care Clinical Administrator Name Role Phone Redd Smiley DO Primary Care Provid er Reason for Visit * Reason Onset Date Comments Test Results 02/10/2024 Encounter Details Date Type Department Care Team ([facility] Contact Info) Description 02/10/[address] [address] Redd Smiley DO [address] [place] [address] Test Results Allergies Active Allergy Reactions Criticality Noted Date Comments Cephalosporins 12/05/2007 Dizziness and nausea Hydrochlorothiazide Abdominal pain 07/16/2018 Lisinopril Cough 01/30/2018 Morphine Psych complications High 05/23/2020 Penicillins 02/14/2001 Propoxyphene Napsylate 12/02/2001 Quinine Sulfate 02/16/2003 Simvastatin Muscle pain Medium 07/04/2010 documented as of this encounter (statuses as of 02/11/2024) Medications Medication Sig Dispensed Refills Start Date End Date Status Centrum Silver Adult 50+ Oral Tablet Take 1 Tablet by mouth in the morning. 100 Tab 0 07/15/2020 Active Atorvastatin Calcium 10 MG Oral Tablet (Lipitor)Indications :Dyslipidemia, goal to be determined TAKE 1 TABLET BY MOUTH DAILY 90 Tablet 3 09/21/2023 Active Eliquis 2.5 MG Oral Tablet (Apixaban)Indication s:Paroxysmal atrial fibrillation (HCC) TAKE 1 TABLET BY MOUTH IN THE MORNING AND 1 BEFORE BEDTIME. 180 Tablet 2 10/26/2023 Active FLUoxetine HCl 20 MG Oral Capsule (PROzac)Indications: Depression with anxiety TAKE 1 CAPSULE BY MOUTH IN THE MORNING 90 Capsule 1 01/21/2024 Active Metoprolol Succinate ER 100 MG Oral Tablet Extended Release 24 Hour (toPROL XL)Indications:Chron ic atrial fibrillation (HCC) Take 1 Tablet by mouth in the morning and 1 Tablet before bedtime. 180 Tablet 1 01/28/2024 Active Linezolid 600 MG Oral Tablet (Zyvox)Indications:V RE (vancomycin-resistan t Enterococci) infection Take 1 Tablet by mouth in the morning and 1 Tablet before bedtime. Do all this for 7 days. 14 Tablet 0 02/10/2024 02/18/2024 Active documented as of this encounter (statuses as of 02/11/2024) Active Problems Problem Noted Date Diagnosed Date [...] as of this encounter (statuses as of 02/11/2024) Resolved Problems Problem Noted Date Diagnosed Date [...] as of this encounter (statuses as of 02/11/2024) Immunizations Name Administration Dates Next Due Pneumococcal [...] encounter Miscellaneous Notes * Telephone Encounter - Maria Luz Riojas LPN - 02/11/2024 12:58 PM EDT Patients daughter is aware and verbalizes understanding. * Telephone Encounter - Keyla Perez OSA - 02/11/2024 12:49 PM EDT Reason for patient's call: Daughter calling to get test results as she has not had a response back. Caller was transferred to Maria Luz at the nurse line. * Telephone Encounter - Redd Smiley DO - 02/10/2024 4:50 PM EDT I did review ask a doc recommendations from Infectious Disease due to VRE UTI Suggested treatment with linezolid Would recommend 600 mg twice daily for 7 days This antibiotic is not available everywhere so it was sent to [facility] [address] pharmacy * Telephone Encounter - Viridiana Engle LPN - 02/10/2024 4:43 PM EDT Patient's daughter Daphne aware and verbalized understanding. Also appears that ID did respond back. Pharmacy selected. Please advise. * Telephone Encounter - Jazmine Cano PHARM Tech - 02/10/2024 4:38 PM EDT Patient daughter called in regarding the UTI regarding a urine culture results. Warm transferred to nurse. Thank you, Jazmine Cano Test Engineering Manager [facility] 02/10/2024, 4:39 PM * Telephone Encounter - Dasha Carl MED ASSIST - 02/10/2024 4:09 PM EDT Tried to reach out to pt's daughter had to leave a message on her voicemail. When she returns the phone call please give her Dr Smiley's message from his documentation note. 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 He contacted Infectious disease toconfirm treatment. Will reach out when he has conformation from them of what medication is best to take. documented in this encounter Plan of Treatment [...] 4:01 PM 05/23/2004 4:01 PM Care Teams Clinical Administrator Relationship Specialty Start Date End Date Redd Smiley DO [address] [place] [address] PCP - General Internal Medicine 08/15/21 documented as of this encounter
--- OUTSIDE RECORDS SUMMARY | 2024-06-04 15:55 | External Medical Summary ---
Author Name UNSPECIFIED Address Unknown [facility] History of Encounters Reason for Assessment: Recertification ( follow-up) reassessment Functional Assessment Current Ability: Bathing: able to partic ipate [...]
--- OUTSIDE RECORDS SUMMARY | 2024-06-04 15:55 | External Medical Summary ---
Author Name Unknown Address Unknown Organization [id number]:[facility] - [address] [place] [address] Laboratory Report Ordering Provider Test Date Status CHARLIE HYLTON 02/06/2024 08:10:22 Final Normal: <30 mg/g creatinine< br/>High: 30-300 mg/g creatinine
Very High: >300 mg/g creatinine
Nephrotic: >2200 mg/g creatinine Observation Date Value Abnormality Reference (Units ) Status Albumin, Urine 02/06/2024 08:10:22 1.39 (mg/dL) Final Creatinine, Urine 02/06/2024 08:10:22 27 (mg/dL) Final Albumin/Creatinine [Mass Ratio] in Urine 02/06/2024 08:10:22 51 Above high normal <30 (mg/g Creat) Final Performing Location [facility] - [address] [place] [address]
--- OUTSIDE RECORDS SUMMARY | 2024-06-04 15:55 | External Medical Summary ---
Author Name Unknown Address Unknown Organization [id number]:LABORATORY [facility] - [address] [facility] [address] Laboratory Report Ordering Provider Test Date Status CHARLIE HYLTON 02/06/2024 08:10:22 Final Observation Date Value Abnormality Reference (Units ) Status Color of Urine by Auto 02/06/2024 08:10:22 Light Yellow Colorless, Light Yellow, Yellow, Dark Yellow Final Clarity, Urine 02/06/2024 08:10:22 Clear Clear Final Glucose [Mass/volume] in Urine by Automated test strip 02/06/2024 08:10:22 Negative Negative (mg/dL) Final Bilirubin.total [Presence] in Urine by Automated test strip 02/06/2024 08:10:22 Negative Negative Final Ketones [Mass/volume] in Urine by Automated test strip 02/06/2024 08:10:22 Negative Negative (mg/dL) Final Specific gravity, Urine 02/06/2024 08:10:22 1.010 1.003-1.030 Final Hemoglobin [Presence] in Urine by Automated test strip 02/06/2024 08:10:22 Negative Negative Final pH, Urine 02/06/2024 08:10:22 7.5 5.0-7.5 (Units) Final Protein [Mass/volume] in Urine by Automated test strip 02/06/2024 08:10:22 Negative Negative (mg/dL) Final Urobilinogen [Mass/volume] in Urine by Automated test strip 02/06/2024 08:10:22 Normal Normal (mg/dL) Final Nitrite [Presence] in Urine by Automated test strip 02/06/2024 08:10:22 Negative Negative Final Leukocyte esterase [Presence] in Urine by Automated test strip 02/06/2024 08:10:22 Moderate Abnormal Negative Final RBC, Urine 02/06/2024 08:10:22 0-2 0-2 (/HPF) Final WBC, Urine 02/06/2024 08:10:22 6-9 Abnormal 0-2 (/HPF) Final Bacteria [#/area] in Urine sediment by Microscopy high power field 02/06/2024 08:10:22 0-25 0-25 (/HPF) Final Performing Location LABORATORY [facility] - [facility] [address] Trisha Calderon. [facility] [id number]
--- OUTSIDE RECORDS SUMMARY | 2024-06-04 15:55 | External Medical Summary | Summary of Care ---
Author Name Unknown Organization [facility] Address [address] [place] [address] Phone [phone] Care Team Providers Care Costume Specialist Name Role Phone MiladRedd sahu Primary Care Provid er Reason for Visit * Reason Comments Outpatient Testing Encounter Details Date Type Department Care Team ([facility] st Contact Info) Description 02/06/2024 9:20 AM EDT Laboratory Laboratory Patient Service [address] [phone] [address] Chronic atrial fibrillation (HCC); HTN, GOAL BELOW 140/90; Dyslipidemia, goal LDL below 130; Delirium Allergies Active Allergy Reactions Criticality Noted Date [...] Not on filedocumented as of this encounter Procedures Procedure Name Priority Date/Time Associated Diagnosis Comments CULTURE, URINE, QUANTITATIVE Routine 02/06/2024 8:10 AM EDT Delirium ALBUMIN / CREATININE RATIO, URINE Routine 02/06/2024 8:10 AM EDT Chronic atrial fibrillation (HCC) HTN, GOAL BELOW 140/90 Dyslipidemia, goal LDL below 130 URINALYSIS, REFLEX TO MICROSCOPIC Routine 02/06/2024 8:10 AM EDT Delirium documented in this encounter Results * (ABNORMAL) CULTURE, URINE, QUANTITATIVE (02/06/2024 8:10 AM EDT) Culture Growth 10,000 to 100,000 colonies/mL Enterococcus faecium VRE, This patient may require isolation.(A) MICROBROTH DILUTIONS 02/10/2024 12:46 PM EDT [facility] Urine Urine specimen obtained by clean catch procedure / Unknown Non-blood Collection / Unknown 02/06/2024 8:10 AM EDT 02/06/2024 8:10 AM EDT Narrative [facility] - 02/10/2024 12:46 PM EDT <10,000 colonies/ml [...] DO LAB MICRO - GENERAL ORDERABLES [facility] [address] [place] [address] * (ABNORMAL) URINALYSIS, REFLEX TO MICROSCOPIC (02/06/2024 8:10 AM EDT) Color, Urine Light Yellow Colorless, Light Yellow, Yellow, Dark Yellow 02/06/2024 5:48 PM EDT LABORATORY C Clarity, Urine Clear Clear 02/06/2024 5:48 PM EDT [facility] Glucose, Urine Negative Negative mg/dL 02/06/2024 5:48 PM EDT LABORATORY C Bilirubin, Urine Negative Negative 02/06/2024 5:48 PM EDT LABORATORY C Ketone, Urine Negative Negative mg/dL 02/06/2024 5:48 PM EDT [facility] Specific Burney, Urine 1.010 1.003 - 1.030 02/06/2024 5:48 PM EDT [facility] Blood, Urine Negative Negative 02/06/2024 5:48 PM EDT [facility] pH, Urine 7.5 5.0 - 7.5 Units 02/06/2024 5:48 PM EDT [facility] Protein, Urine Negative Negative mg/dL 02/06/2024 5:48 PM EDT [facility] Urobilinogen, Urine Normal Normal mg/dL 02/06/2024 5:48 PM EDT [facility] Nitrite, Urine Negative Negative 02/06/2024 5:48 PM EDT [facility] Esterase, Urine Moderate(A) Negative 02/06/2024 5:48 PM EDT [facility] RBC, Urine 0-2 0 - 2 /HPF 02/06/2024 5:48 PM EDT [facility] WBC, Urine 6-9(A) 0 - 2 /HPF 02/06/2024 5:48 PM EDT [facility] Bacteria, Urine 0-25 0 - 25 /HPF 02/06/2024 5:48 PM EDT [facility] Urine Urine specimen obtained by clean catch procedure / Unknown Non-blood Collection / Unknown 02/06/2024 8:10 AM EDT 02/06/2024 8:10 AM EDT Redd Smiley DO LAB URINE OR DERABLES [facility] [address] [place] [address] * (ABNORMAL) ALBUMIN / CREATININE RATIO, URINE (02/06/2024 8:10 AM EDT) Albumin, Random Urine 1.39 mg/dL 02/06/2024 5:46 PM EDT [facility] Creatinine, Random Urine 27 mg/dL 02/06/2024 5:46 PM EDT [facility] Albumin / Creatinine Ratio, Urine 51(H) <30 mg/g Creat 02/06/2024 5:46 PM EDT [facility] Urine Urine specimen obtained by clean catch procedure / Unknown Non-blood Collection / Unknown 02/06/2024 8:10 AM EDT 02/06/2024 8:10 AM EDT Narrative LABORATORY [facility] - 02/06/2024 5:46 PM EDT Normal: <30 mg/g creatinine High: 30-300 mg/g creatinine Very High: >300 mg/g creatinine Nephrotic: >2200 mg/g creatinine Redd Smiley DO LAB URINE OR DERABLES Performing Organization Address City/State/[facility] Co de Phone Number LAB[facility] [address] [place] [address] documented in this encounter Visit Diagnoses Diagnosis Chronic atrial fibrillation (HCC) Atrial fibrillation HTN, GOAL BELOW 140/90 Unspecified essential hypertension Dyslipidemia, goal LDL below 130 Other and unspecified hyperlipidemia Delirium Other alteration of consciousness documented in this encounter Advance Directives Latest Code Status on File Code Status Date Activated Date Inactivated Comments None 05/23/2004 4:01 PM 05/23/2004 4:01 PM Care Teams Costume Specialist Relationship Specialty Start Date End Date Redd Smiley DO [address] [place] [id number] PCP - General Internal Medicine 08/15/21 documented as of this encounter
--- OUTSIDE RECORDS SUMMARY | 2024-06-04 15:55 | External Medical Summary ---
Author Name UNSPECIFIED Address Unknown Organization [facility] [place] Service [facility] History of Encounters Reason for Assessment: Transferred to an inpatient facility - patient not discharged from agency Inpatient Facility where the patient been admitted: Hospital
--- OUTSIDE RECORDS SUMMARY | 2024-06-04 15:55 | External Medical Summary | Summary of Care ---
Author Name Unknown Organization [facility] Address [address] [place] [facility] [place] [place] [address] Phone [phone] Care Team Providers Care Pen Tester Name Role Phone Redd Smiley DO Primary Care Provid er Encounter Details Date Type Department Care Team ([facility] st Contact Info) Description 02/10/[address] [address] Redd Smiley DO [address] [place] [phone] Allergies Active Allergy Reactions Criticality Noted Date [...] returning call. Can call her back at [phone]. Pt is at work and might not hear the phone. Okay to leave detailed message. * Redd Smiley DO - 02/10/2024 1:27 PM EDT Patient was previously in the hospital at [facility] due to UTI that grew Pseudomonas. Her [...] 4:01 PM 05/23/2004 4:01 PM Care Teams Pen Tester Relationship Specialty Start Date End Date Redd Smiley DO [address] [place] [id number] PCP - General Internal Medicine 08/15/21 documented as of this encounter
--- OUTSIDE RECORDS SUMMARY | 2024-06-04 15:55 | External Medical Summary | Summary of Care ---
Author Name Unknown Organization [facility] Address [address] [facility] [place] [address] Phone [phone] Care Team Providers Care Brine Well Operator Name Role Phone ZeldajesseReddothy Primary Care Provid er Reason for Visit * Reason Onset Date Comments Hospital Follow-Up Hospital f/u from [facility] (see records) Hospital Follow-Up 01/28/2024 Encounter Details Date Type Department Care Team ([facility] Contact Info) Description 01/28/2024 12:00 PM EDT Office Visit [facility] [address] [place] [phone] Laura Krishnamurthy PA-C [address] [place] [id number] Hospital discharge follow-up*; Chronic atrial fibrillation (HCC) Allergies Active Allergy Reactions Criticality Noted Date Comments Cephalosporins 12/05/2007 Dizziness and nausea Hydrochlorothiazide Abdominal pain 07/16/2018 Lisinopril Cough 01/30/2018 Morphine Psych complications High 05/23/2020 Penicillins 02/14/2001 Propoxyphene Napsylate 12/02/2001 Quinine Sulfate 02/16/2003 Simvastatin Muscle pain Medium 07/04/2010 documented as of this encounter (statuses as of 01/28/2024) Medications Medication Sig Dispensed Refills Start Date [...] before bedtime. 180 Tablet 1 01/28/2024 Active Metoprolol Succinate ER 100 MG Oral Tablet Extended Release 24 Hour (toPROL XL)Indications:Chr onic atrial fibrillation (HCC) Take 1 Tablet by mouth in the morning and 1 Tablet before bedtime. 180 Tablet 1 12/11/2023 01/28/2024 Discontinued (Refill) documented as of this encounter (statuses as of 01/28/2024) Active Problems Problem Noted Date Diagnosed Date [...] as of this encounter (statuses as of 01/28/2024) Resolved Problems Problem Noted Date Diagnosed Date [...] as of this encounter (statuses as of 01/28/2024) Immunizations Name Administration Dates Next Due Pneumococcal [...] Sign Reading Time Taken Comments Blood Pressure 122/64 01/28/2024 11:58 AM EDT Pulse 76 01/28/2024 11:58 AM EDT Temperature 36.3 C (97.4 F) 01/28/2024 11:58 AM E DT Respiratory Rate 18 01/28/2024 11:58 AM EDT Oxygen Saturation 94% 01/28/2024 11:58 AM EDT Inhaled Oxygen Concentration - - Weight 61.8 kg (136 lb 3.2 oz) 01/28/2024 11:58 AM EDT Height - - Body Mass Index 19.54 12/11/2023 11:33 AM EST documented in this encounter Progress Notes * Laura Krishnamurthy PA-C - 01/28/2024 12:13 PM EDT Images from the original note were not included. History of Present Illness Ying Rogers is a 88 year old female that presents for Hospital Follow-Up (Hospital f/u from [facility] (see records)) and Hospital Follow-Up Pt here with daughter today today. Pt was admitted with Flu B and UTI. She was then admitted to [facility] for PT/OT. Pt has continued PT/OT at home. Pt states that overall she is feeling well. Daughteris questioning about a preventative antibiotic for UTIs. They state she does not get typical signs and symptoms and becomes very ill at times. Pt will need refill metoprolol. Pt is taking all medications as prescribed. Pt has her own apartment and does well. Daughter is near by. Pt is getting around at home with walker. Metoprolol Succinate ER 100 MG Oral Tablet Extended Release 24 Hour (toPROL XL) FLUoxetine HCl 20 MG Oral Capsule (PROzac) Eliquis 2.5 MG Oral Tablet (Apixaban) Atorvastatin Calcium 10 MG Oral Tablet (Lipitor) Centrum Silver Adult 50+ Oral Tablet Review of patient's allergies indicates: Allergen Reactions Morphine Psych complications Zocor [Simvastatin] Muscle pain Cephalexin [Cephalosporins] Dizziness and nausea Hctz [Hydrochlorothiazide] Abdominal pain Lisinopril Cough Penicillins Propoxyphene Napsylate Quinine Sulfate Patient Active Problem List Diagnosis Date Noted Depression with anxiety [F41.8] 11/21/2023 Chronic atrial fibrillation (HCC) [I48.20] 11/28/2022 Dyslipidemia, goal LDL below 130 [E78.5] 01/08/2018 HTN, GOAL BELOW 140/90 [I10] 08/31/2009 Modified per HTN protocol #16. ADVANCE DIRECTIVE INFORMATION 08/15/2005 Yes, Patient instructed to provide copy of advance directive for provider to review and to be scanned into Electronic Medical Record Social History Socioeconomic History Marital status: Spouse [...] Service Not Asked Blood Transfusions No Comment: 1988, diskectomy, own blood Caffeine Concern No Occupational Exposure Not Asked Hobby Hazards Not Asked Sleep Concern No Stress Concern No Weight Concern No Special Diet Not Asked Back Care Yes Exercise Yes Bike Helmet Not Asked Seat Belt Yes Self-Exams Yes Social History Narrative Not on file Social Determinants of Health Financial Resource Strain: Not on file Food Insecurity: No Food Insecurity (11/26/2022) Hunger Vital Sign Worried About Running Out of Food in the Last Year: Never true Ran Out of Food in the Last Year: Never true Transportation Needs: Not on file Physical Activity: Not on file Stress: Not on file Social Connections: Not on file Intimate Partner Violence: Not on file Housing Stability: Not on file Past Surgical History: Procedure Laterality Date LUMBAR SPINE FUSION W/BONE GRAFT 1988 PELVIS/HIP JOINT SURGERY NEC Left REMOVAL OF APPENDIX 1957 TOTAL HIP REPLACEMENT & PROSTHESIS Right Family History Problem Relation Age of Onset Diabetes Mother Heart Disorder Mother Diabetes Brother Hypertension Brother Review of Systems Constitutional: Negative. Respiratory: Negative. Cardiovascular: Negative. Gastrointestinal: Negative. Genitourinary: Negative. Psychiatric/Behavioral: Negative. Physical Exam BP 122/64 | Pulse 76 | Temp 36.3 C (97.4 F) (Infrared ) | Resp 18 | Wt 61.8 kg (136 lb 3.2 oz) | SpO2 94% | BMI 19.54 kg/m | BSA 1.75 m Physical Exam Constitutional: Appearance: Normal appearance. Cardiovascular: Rate and Rhythm: Normal rate. Rhythm irregular. Pulmonary: Effort: Pulmonary effort is normal. Breath sounds: Normal breath sounds. Skin: General: Skin is warm. Neurological: Mental Status: She is alert. I have reviewed most recent labs CBC and BMP Assessment and Plan Hospital discharge follow-up - DISCH MED RECON CUR MED LIS - Will discuss with Dr. Smiley about starting patient on preventative abx. - Continue current meds. Labs reviewed and stable. Chronic atrial fibrillation (HCC) - Metoprolol Succinate ER 100 MG Oral Tablet Extended Release 24 Hour (toPROL XL); Take 1 Tablet bymouth in the morning and 1 Tablet before bedtime. Wrap-Up Time: I spent a total of 30-39 minutes (exact time 35 mins) on the date of service in preparation, delivery, and documentation of the care provided to Ying L Bechdel excluding any time spent in the performance of separately billed services. documented in this encounter Plan of Treatment Health Maintenance Due Date Last Done Comments Zoster Vaccines (1 of 2) 1984 DXA Scan 06/15/2019 06/15/2016, 08/0 12/2009, 08/30/2007, Additional history exists Albumin/Creatinine Ratio 07/09/2021 07/09/2018, 02/12 COVID-19 Vaccine (3 - 2022- season) 2023 02/21/2021, 01/24/2021 DTaP,Tdap,and Td Vaccines [...] as of this encounter Visit Diagnoses Diagnosis Hospital discharge follow-up- Primary Other follow-up examination Chronic atrial fibrillation (HCC) Atrial fibrillation documented in this encounter Advance Directives Latest Code Status on File Code Status Date Activated Date Inactivated Comments None 05/23/2004 4:01 PM 05/23/2004 4:01 PM Care Teams Brine Well Operator Relationship Specialty Start Date End Date Redd Smiley DO [address] [place] [id number] PCP - General Internal Medicine 08/15/21 documented as of this encounter"
--- OUTSIDE RECORDS SUMMARY | 2024-06-04 15:55 | External Medical Summary | Summary of Care ---
Author Name Unknown Organization [facility] Address [address] [facility] [place] [address] Phone [phone] Care Team Providers Care Sliver Lap Tender Name Role Phone Redd Smiley DO Primary Care Provid er Encounter Details Date Type Department Care Team ([facility] st Contact Info) Description 02/10/[address] [phone] Redd Smiley DO [address] [place] [address] Allergies Active Allergy Reactions Criticality Noted Date [...] as of this encounter Progress Notes * Redd Smiley DO - 02/10/2024 1:27 PM EDT Patient was previously in the hospital at [facility] due to UTI that grew Pseudomonas. [...] 4:01 PM 05/23/2004 4:01 PM Care Teams Sliver Lap Tender Relationship Specialty Start Date End Date Redd Smiley DO [address] [place] [id number] PCP - General Internal Medicine 08/15/21 documented as of this encounter
--- OUTSIDE RECORDS SUMMARY | 2024-06-04 15:55 | External Medical Summary | Summary of Care ---
Author Name Unknown Organization [facility] Address [address] [place] [address] Phone [phone] Care Team Providers Care Admin Asst Name Role Phone MiladRedd sahu Primary Care Provid er Reason for Visit * Reason Comments Outpatient Testing Encounter Details Date Type Department Care Team ([facility] st Contact Info) Description 02/06/2024 9:20 AM EDT Laboratory Laboratory Patient Service [address] [phone] [address] Chronic atrial fibrillation (HCC); HTN, GOAL BELOW 140/90; Dyslipidemia, goal LDL below 130; Delirium Allergies Active Allergy Reactions Criticality Noted Date Comments Cephalosporins 12/05/2007 Dizziness and nausea Hydrochlorothiazide Abdominal pain 07/16/2018 Lisinopril Cough 01/30/2018 Morphine Psych complications High 05/23/2020 Penicillins 02/14/2001 Propoxyphene Napsylate 12/02/2001 Quinine Sulfate 02/16/2003 Simvastatin Muscle pain Medium 07/04/2010 documented as of this encounter (statuses as of 02/06/2024) Medications Medication Sig Dispensed Refills Start Date [...] as of this encounter (statuses as of 02/06/2024) Active Problems Problem Noted Date Diagnosed Date [...] as of this encounter (statuses as of 02/06/2024) Resolved Problems Problem Noted Date Diagnosed Date [...] as of this encounter (statuses as of 02/06/2024) Immunizations Name Administration Dates Next Due Pneumococcal [...] as of this encounter Plan of Treatment Pending Results Name Type Priority Associated Diagnoses Date /Time ALBUMIN / CREATININE RATIO, URINE Lab Routine Chronic atrial fibrillation (HCC) HTN, GOAL BELOW 140/90 Dyslipidemia, goal LDL below 130 02/06/2024 8:10 AM EDT URINALYSIS, REFLEX TO MICROSCOPIC Lab Routine Delirium 02/06/2024 8:10 AM EDT CULTURE, URINE, QUANTITATIVE Lab Routine Delirium 02/06/2024 8:10 AM EDT Health Maintenance Due Date Last [...] as of this encounter Visit Diagnoses Diagnosis Chronic atrial fibrillation (HCC) Atrial fibrillation HTN, GOAL BELOW 140/90 Unspecified essential hypertension Dyslipidemia, goal LDL below 130 Other and unspecified hyperlipidemia Delirium Other alteration of consciousness documented in this encounter Advance Directives Latest Code Status on File Code Status Date Activated Date Inactivated Comments None 05/23/2004 4:01 PM 05/23/2004 4:01 PM Care Teams Admin Asst Relationship Specialty Start Date End Date Redd Smiley DO [address] [place] [id number] PCP - General Internal Medicine 08/15/21 documented as of this encounter
--- OUTSIDE RECORDS SUMMARY | 2024-06-04 15:56 | External Medical Summary | Summary of Care ---
Author Name Unknown Organization [facility] Address [address] [place] [facility] [place] [address] Phone [phone] Care Team Providers Care Respiratory Manager Name Role Phone MiladRedd sahu Primary Care Provid er Reason for Visit * Reason Comments eRx-Medication Refill Encounter Details Date Type Department Care Team (Late st Contact Info) Description 01/02/2024 Refill [facility] [address] [place] [address] Kajal Cedeño PA-C [address] [place] [address] Allergies Active Allergy Reactions Criticality Noted Date Comments Cephalosporins 12/05/2007 Dizziness and nausea Hydrochlorothiazide Abdominal pain 07/16/2018 Lisinopril Cough 01/30/2018 Morphine Psych complications High 05/23/2020 Penicillins 02/14/2001 Propoxyphene Napsylate 12/02/2001 Quinine Sulfate 02/16/2003 Simvastatin Muscle pain Medium 07/04/2010 documented as of this encounter (statuses as of 01/14/2024) Medications Medication Sig Dispensed Refills Start Date [...] 12/11/2023 Active Digoxin 125 MCG Oral Tablet (Lanoxin)Indications: Paroxysmal atrial fibrillation (HCC) TAKE 1 TABLET BY MOUTH EVERY OTHER DAY 15 Tablet 0 01/03/2024 Active documented as of this encounter (statuses as of 01/14/2024) Active Problems Problem Noted Date Diagnosed Date [...] as of this encounter (statuses as of 01/14/2024) Resolved Problems Problem Noted Date Diagnosed Date [...] as of this encounter (statuses as of 01/14/2024) Immunizations Name Administration Dates Next Due Pneumococcal [...] encounter Miscellaneous Notes * Telephone Encounter - Patricia Rose LPN - 01/14/2024 3:25 PM EDTRefused Prescriptions: Disp Refills Kapspargo Sprinkle 100 MG Oral Capsule ER *60 Cap*0 Sig: TAKE 1CAPSULE BY MOUTH IN THE MORNING AND BEFORE BEDTIME.Refused By: Eliu ROSE for Refusal: Duplicate Request * Telephone Encounter - Patricia Rose LPN - 01/14/2024 3:24 PM EDT Rx was sent on 12/11/23 with 1 refill. * Telephone Encounter - Interface, E-Rx Ss Inbound - 01/08/2024 6:02 AM EDT Pending Prescriptions: Disp Refills Kapspargo Sprinkle 100 MG Oral Capsule ER *60 Cap*0 Sig: TAKE 1 CAPSULE BY MOUTH IN THE MORNING AND BEFORE BEDTIME. * Telephone Encounter - Interface, E-Rx Ss Inbound - 01/06/2024 6:02 AM EDT Pending Prescriptions: Disp Refills Kapspargo Sprinkle 100 MG Oral Capsule ER *60 Cap*0 Sig: TAKE 1 CAPSULE BY MOUTH IN THE MORNING AND BEFORE BEDTIME. * Telephone Encounter - Interface, E-Rx Ss Inbound - 01/04/2024 6:02 AM EDT Pending Prescriptions: Disp Refills Kapspargo Sprinkle 100 MG Oral Capsule ER *60 Cap*0 Sig: TAKE 1CAPSULE BY MOUTH IN THE MORNING AND BEFORE BEDTIME. documented in this encounter Plan of Treatment [...] 4:01 PM 05/23/2004 4:01 PM Care Teams Respiratory Manager Relationship Specialty Start Date End Date Redd Smiley DO [address] [place] [address] [phone] PCP - General Internal Medicine 08/15/21 documented as of this encounter
--- OUTSIDE RECORDS SUMMARY | 2024-06-04 15:56 | External Medical Summary | Summary of Care ---
Author Name Unknown Organization [facility] Address [address] [facility] [place] [address] Phone [phone] Care Team Providers Care Plasterer Spray Gun Name Role Phone MiladRedd sahu Primary Care Provid er Reason for Visit * Reason Onset Date Comments Detention Visit - Admission 01/21/2024 Encounter Details Date Type Department Care Team (Latest Contact Info) Description 01/21/2024 9:20 AM EDT Detention Visit [address] [place] [address] Madeline Francis MD [address] [place] [address] [place] Vincent [phone] Influenza B*; Acute cystitis without hematuria; Chronic atrial fibrillation (HCC); HTN, GOAL BELOW 140/90; Dyslipidemia, goal LDL below 130; Depression with anxiety Allergies Active Allergy Reactions Criticality Noted Date Comments Cephalosporins 12/05/2007 Dizziness and nausea Hydrochlorothiazide Abdominal pain 07/16/2018 Lisinopril Cough 01/30/2018 Morphine Psych complications High 05/23/2020 Penicillins 02/14/2001 Propoxyphene Napsylate 12/02/2001 Quinine Sulfate 02/16/2003 Simvastatin Muscle pain Medium 07/04/2010 documented as of this encounter (statuses as of 01/21/2024) Medications Medication Sig Dispensed Refills Start Date [...] before bedtime. 180 Tablet 1 12/11/2023 Active documented as of this encounter (statuses as of 01/21/2024) Active Problems Problem Noted Date Diagnosed Date [...] as of this encounter (statuses as of 01/21/2024) Resolved Problems Problem Noted Date Diagnosed Date [...] as of this encounter (statuses as of 01/21/2024) Immunizations Name Administration Dates Next Due Pneumococcal [...] as of this encounter Progress Notes * Madeline Francis MD - 01/21/2024 9:23 AM EDT ADMISSION HISTORY and PHYSICAL TRANSITION EVENT: Type: SNF admission Date: January 16 Code Status: No Code Name: Ying Rogers Date of : 1935 This note pertains to care provided at [facility] [place] [place]. Please see facility medical record for original note. This note is not to be edited or addended in [employer]. Editing or addending needs to occur in the facilities medical record. S: Ying Rogers had been admitted to [facility] from [facility] for PT and OT. Recently admitted to [facility] on 01/10/24 because of influenza B and UTI and was transferred here and admitted on 01/17/2024. Patient of Dr. Smiley with PMH of chronic atrial fibrillation on Eliquis, hypertension, dyslipidemia, and depression with anxiety who presented to the ED with cough and confusion x 1 week. She had also had a cough productive of yellow sputum for 5 days. In the ED, CBC was normal. CMP was also normal. UA showed trace protein, trace blood, positive nitrites, and 3+ leuk est. Her respiratory Biofire was positive for influenza B. Head CT was negative for acute changes. CXR was also negative. Patient was admitted and treated with nebulizers PRN for her flu symptoms. It was too late for antiviral therapy. Her urine culture grew Pseudomonas. Blood cultures were negative. She was treated with IV cefepime and was discharged to complete 2 more days (for a total course of 7 days). Her mental status returned to baseline. She is now admitted for PT/OT. She completed IV cefepime here on 01/19/24. Her long-term IV access has been removed. Results for orders placed or performed in visit on 12/02/23 BASIC METABOLIC PANEL Result Value Ref Range BUN 17 6 - 20 mg/dL Creatinine 0.8 0.5 - 1.0 mg/dL Estimated Glomerular Filtration Rate 68 >=60 mL/min Sodium 142 135 - 146 mmol/L Potassium 4.5 3.5 - 5.1 mmol/L Chloride 103 98 - 107 mmol/L CO2 29 22 - 32 mmol/L Anion Gap 10 7 - 15 mmol/L Glucose 105 70 - 120 mg/dL Calcium 9.3 8.4 - 10.2 mg/dL CBC Result Value Ref Range WBC 5.43 4.00 - 10.80 K/uL RBC 4.40 3.85 - 5.15 M/uL HGB 13.6 12.0 - 15.3 g/dL HCT 42.5 36.0 - 45.2 % MCV 96.6 81.5 - 97.5 fL MCH 30.9 27.0 - 34.0 pg MCHC 32.0 32.0 - 36.0 g/dL RDW 12.6 11.5 - 15.5 % PLT 183 140 - 400 K/uL MPV 11.1 6.6 - 11.1 fL DIGOXIN LEVEL Result Value Ref Range Digoxin Level 0.5 0.5 - 1.1 ng/mL Past Medical History: Patient Active Problem List Diagnosis Code ADVANCE DIRECTIVE INFORMATION HTN, GOAL BELOW 140/90 I10 Dyslipidemia, goal LDL below 130 E78.5 Chronic atrial fibrillation (HCC) I48.20 Depression with anxiety F41.8 Current Outpatient Medications Medication Sig Dispense Refill Centrum Silver Adult 50+ Oral Tablet Take 1 Tablet by mouth in the morning. 100 Tab 0 FLUoxetine HCl 20 MG Oral Capsule (PROzac) TAKE 1 CAPSULE BY MOUTH IN THE MORNING 90 Capsule 1 Atorvastatin Calcium 10 MG Oral Tablet (Lipitor) TAKE 1 TABLET BY MOUTH DAILY 90 Tablet 3 Eliquis 2.5 MG Oral Tablet (Apixaban) TAKE 1 TABLET BY MOUTH IN THE MORNING AND 1 BEFORE BEDTIME. 180 Tablet 2 Metoprolol Succinate ER 100 MG Oral Tablet Extended Release 24 Hour (toPROL XL) Take 1 Tablet by mouth in the morning and 1 Tablet before bedtime. 180 Tablet 1 No current facility-administered medications for this visit. Review of patient's allergies indicates: Allergen Reactions Morphine Psych complications Zocor [Simvastatin] Muscle pain Cephalexin [Cephalosporins] Dizziness and nausea Hctz [Hydrochlorothiazide] Abdominal pain Lisinopril Cough Penicillins Propoxyphene Napsylate Quinine Sulfate Social History Tobacco Use Smoking status: Never Smokeless tobacco: Never Substance Use Topics Alcohol use: No Vaping/E-Cigarette Use Vaping/E-Cigarette Use Never User Vaping/E-Cigarette Substances Vaping/E-Cigarette Devices Past Surgical History: Procedure Laterality Date LUMBAR [...] Alive Bro (Not Specified) Bro (Not Specified) Review of Systems: Constitutional ROS: No change in weight, No fevers, sweats, or chills, and +generalized weakness Eye ROS: No recent significant change in vision and No eye pain, redness, discharge Ear ROS: No ear pain, No drainage, No tinnitus or vertigo, and No recent change in hearing Nose ROS: No history of frequent colds or sinusitis, No nasal stuffiness, No history of Hay Fever, and No significant epistaxis Mouth/Throat ROS: No bleeding gums, No thrush, or No sore throat Pulmonary ROS: No cough, sputum, or hemoptysis, No wheezing, No shortness of breath, and No recent change in breathing Cardiovascular ROS: No chest pain, No shortness of breath, No orthopnea, No paroxysmal nocturnal dyspnea, No edema, and No syncope +atrial fibrillation Gastrointestinal ROS: No abdominal pain, No change in bowel habits, No significant heartburn, No significant change in appetite, No nausea, vomiting, diarrhea, or constipation, No hematemesis, No blood in stools or black tarry stools, No abdominal bloating or early satiety, and No dysphagia Genito-Urinary Female ROS: No dysuria, No frequency, No incontinence, and +recent UTI as above Musculoskeletal/Extremities ROS: No pain, redness or swelling on the joints Hematologic/Lymphatic ROS: No anemia, No abnormal bleeding, No chills, and No weight loss Skin/Integumentary ROS: No edema, No rash, and No itching Neurologic ROS: No headaches and No seizures Endocrine ROS: No heat intolerance, No cold intolerance, No thyroid trouble, No excessive thirst orurination, and No history of diabetes Psychiatric ROS: +depression with anxiety ADL skills: dependent Ambulates with walker OBJECTIVE: PHYSICAL EXAM: I reviewed the most recent facilities vitals. Refer to vital signs flowsheet in fdc chart.General: alert, healthy, no distress, well nourished, and well developed Head: Normocephalic, No masses, lesions, tenderness or abnormalities Eye Exam: PERRLA, extraocular movements intact, conjunctiva are pink and non- injected, sclera clear Ears: External ears normal, Canals clear, TM's Normal Nose: no mucosal erythema, no mucosal edema, no purulent discharge Oropharynx: no exudate, no erythema, lips, buccal mucosa, and tongue normal, and mucous membranes are moist Neck: supple, no adenopathy, no bruits Heart: no gallops and irregularly irregular Lungs: chest symmetric with normal AP diameter, no chest deformities noted, no chest wall tenderness, lungs clear to auscultation Abdomen: abdomen soft, non-tender, normal bowel sounds, and no masses or organomegaly Extremities: no edema, no clubbing, no cyanosis Neuro Exam: alert & oriented x 3 with fluent speech, no focal motor/sensory deficits, gait normal ASSESSMENT: Influenza B (Primary)--resolved. Acute cystitis without hematuria--symptoms resolved. Completed IV Cefepime 01/19/24. Chronic atrial fibrillation (HCC)--rate controlled with metoprolol succinate 100 mg twice daily andanticoagulated with Eliquis. HTN, GOAL BELOW 140/90--controlled with metoprolol succinate 100 mg twice daily. Dyslipidemia, goal LDL below 130--controlled with atorvastatin 10 mg daily. Depression with anxiety--controlled with fluoxetine 20 mg daily. PLAN: 1. Continue present medication(s): Schedule labs: CBC w/diff BMP 2. Admission orders, medications, labs, hospital records and care plan reviewed. 3. Physical Therapy, Occupational Therapy, and Speech Therapy ordered. 4. Care plan reviewed. 5. Advance Directives were discussed: The patient is a DNR 6. Senior Living Home Treatment Given: Antibiotic IV Cefepime completed 01/19/24 Electronically signed by: Madeline Francis MD I spent a total of 40 minutes coordinating, documenting, and providing care for this patient excluding time spent in the performance of separately billed services or time spent by another provider/QHP. documented in this encounter Plan of Treatment [...] as of this encounter Visit Diagnoses Diagnosis Influenza B- Primary Influenza with other respiratory manifestations Acute cystitis without hematuria Acute cystitis Chronic atrial fibrillation (HCC) Atrial fibrillation HTN, GOAL BELOW 140/90 Unspecified essential hypertension Dyslipidemia, goal LDL below 130 Other and unspecified hyperlipidemia Depression with anxiety Dysthymic disorder documented in this encounter Advance Directives Latest Code Status on File Code Status Date Activated Date Inactivated Comments None 05/23/2004 4:01 PM 05/23/2004 4:01 PM Care Teams Plasterer Spray Gun Relationship Specialty Start Date End Date Redd Smiley DO [address] [place] [id number] PCP - General Internal Medicine 08/15/21 documented as of this encounter
--- OUTSIDE RECORDS SUMMARY | 2024-06-04 15:56 | External Medical Summary | Summary of Care ---
Author Name Unknown Organization [facility] Address [address] [facility] [address] Phone [phone] Care Team Providers Care Habilitation Specialist Name Role Phone MiladRedd sahu Primary Care Provid er Reason for Visit * Reason Onset Date Comments Skilled Visit 01/20/2024 Encounter Details Date Type Department Care Team (Late st Contact Info) Description 01/20/2024 1:00 PM EDT Intermediate Visit [address] [place] [address] Kajal Cedeño PA-C [address] [place] [address] [place] [address] Influenza B*; Pseudomonas urinary tract infection; Chronic atrial fibrillation (HCC); Depression with anxiety; HTN, GOAL BELOW 140/90; Dyslipidemia, goal LDL below 130; DNR (do not resuscitate) discussion Allergies Active Allergy Reactions Criticality Noted Date Comments Cephalosporins 12/05/2007 Dizziness and nausea Hydrochlorothiazide Abdominal pain 07/16/2018 Lisinopril Cough 01/30/2018 Morphine Psych complications High 05/23/2020 Penicillins 02/14/2001 Propoxyphene Napsylate 12/02/2001 Quinine Sulfate 02/16/2003 Simvastatin Muscle pain Medium 07/04/2010 documented as of this encounter (statuses as of 01/20/2024) Medications Medication Sig Dispensed Refills Start Date [...] EVERY OTHER DAY 15 Tablet 0 01/03/2024 01/20/2024 Discontinued (Medication List Clean Up) documented as of this encounter (statuses as of 01/20/2024) Active Problems Problem Noted Date Diagnosed Date [...] as of this encounter (statuses as of 01/20/2024) Resolved Problems Problem Noted Date Diagnosed Date [...] as of this encounter (statuses as of 01/20/2024) Immunizations Name Administration Dates Next Due Pneumococcal [...] Sign Reading Time Taken Comments Blood Pressure 117/70 01/20/2024 12:01 PM EDT Pulse 87 01/20/2024 12:01 PM EDT Temperature 36.7 C (98 F) 01/20/2024 12:01 PM EDT Respiratory Rate 18 01/20/2024 12:01 PM EDT Oxygen Saturation 95% 01/20/2024 12:01 PM EDT room air Inhaled Oxygen Concentration - - Weight 61.2 kg (135 lb) 01/20/2024 12:01 PM EDT Height - - Body Mass Index 19.37 12/11/2023 11:33 AM EST documented in this encounter Plan of Treatment [...] B- Primary Influenza with other respiratory manifestations Pseudomonas urinary tract infection Urinary tract infection, site not specified Chronic atrial fibrillation (HCC) Atrial fibrillation Depression with anxiety Dysthymic disorder HTN, GOAL BELOW 140/90 Unspecified essential hypertension Dyslipidemia, goal LDL below 130 Other and unspecified hyperlipidemia DNR (do not resuscitate) discussion Other specified counseling documented in this encounter Advance Directives Latest Code Status on File Code Status Date Activated Date Inactivated Comments None 05/23/2004 4:01 PM 05/23/2004 4:01 PM Care Teams Habilitation Specialist Relationship Specialty Start Date End Date Redd Smiley DO [address] [place] [id number] PCP - General Internal Medicine 08/15/21 documented as of this encounter
--- OUTSIDE RECORDS SUMMARY | 2024-06-04 15:56 | External Medical Summary | Summary of Care ---
Author Name Unknown Organization [facility] Address [address] [place] [address] Phone [phone] Care Team Providers Care Pile Driver Operator Helper Name Role Phone Redd Smiley DO Primary Care Provid er Reason for Visit * Reason Comments eRx-Medication Refill Encounter Details Date Type Department Care Team ([facility] [address] Contact Info) Description 01/18/2024 Refill Family [address] [id number] Redd Smiley DO [address] [place] [id number] Allergies Active Allergy Reactions Criticality Noted Date Comments Cephalosporins 12/05/2007 Dizziness and nausea Hydrochlorothiazide Abdominal pain 07/16/2018 Lisinopril Cough 01/30/2018 Morphine Psych complications High 05/23/2020 Penicillins 02/14/2001 Propoxyphene Napsylate 12/02/2001 Quinine Sulfate 02/16/2003 Simvastatin Muscle pain Medium 07/04/2010 documented as of this encounter (statuses as of 01/19/2024) Medications Medication Sig Dispensed Refills Start Date [...] as of this encounter (statuses as of 01/19/2024) Active Problems Problem Noted Date Diagnosed Date [...] as of this encounter (statuses as of 01/19/2024) Resolved Problems Problem Noted Date Diagnosed Date [...] as of this encounter (statuses as of 01/19/2024) Immunizations Name Administration Dates Next Due Pneumococcal [...] encounter Miscellaneous Notes * Telephone Encounter - Rod Cunha RPh - 01/19/2024 12:32 PM EDT The original prescription was discontinued on 12/04/2023 by Kajal Cedeño PA-C. Renewing thisprescription may not be appropriate. * Telephone Encounter - Rod Cunha RPh - 01/19/2024 12:32 PM EDT Refused Prescriptions: Disp Refills Metoprolol Tartrate 25 MG Oral Tablet (Lop*180 Ta*0 Sig: TAKE 1 TABLET BY MOUTH TWICE DAILY Refused By: ROD CUNHA Reason for Refusal: Course of treatment complete documented in this encounter Plan of Treatment [...] 4:01 PM 05/23/2004 4:01 PM Care Teams Pile Driver Operator Helper Relationship Specialty Start Date End Date Redd Smiley DO [address] [place] [id number] PCP - General Internal Medicine 08/15/21 documented as of this encounter
--- OUTSIDE RECORDS SUMMARY | 2024-06-04 15:56 | External Medical Summary ---
Author Name Unknown Address Unknown Organization [facility] [address] [place] [address] Laboratory Report Ordering Provider Test Date Status IVÁN BRITTON 01/22/2024 05:45:00 Final Observation Date Value Abnormality Reference (Units ) Status SYNC LEUKOCYTES IN BLOOD BY AUTOMATED COUNT 01/22/2024 05:45:00 7.31 4.00-10.80 (K/uL) Final Segs 01/22/2024 05:45:00 66.9 40.0-75.0 (%) Final Lymphs % 01/22/2024 05:45:00 19.3 18.0-42.0 (%) Final Monos 01/22/2024 05:45:00 12.7 Above high normal 1.0-11.0 (%) Final Eosinophils 01/22/2024 05:45:00 0.8 0.0-6.0 (%) Final Basos 01/22/2024 05:45:00 0.3 0.0-2.0 (%) Final Absolute Segs 01/22/2024 05:45:00 4.89 1.80-7.70 (K/uL) Final Lymphs, absolute 01/22/2024 05:45:00 1.41 1.00-4.80 (K/ul) Final Monos, Abs 01/22/2024 05:45:00 0.93 0.00-1.10 (K/uL) Final Eos, Abs 01/22/2024 05:45:00 0.06 0.00-0.70 (K/uL) Final Basos, Abs 01/22/2024 05:45:00 0.02 0.00-0.20 (K/uL) Final Performing Location [facility] [address] [place] [address]
--- OUTSIDE RECORDS SUMMARY | 2024-06-04 15:56 | External Medical Summary | Summary of Care ---
Author Name Unknown Organization [facility] Address [address] [place] [address] Phone [phone] Care Team Providers Care Grounds Crew Supervisor Name Role Phone MiladRedd sahu Primary Care Provid er Reason for Referral * Evaluate & Treat - Unlimited Visits (Within 3 days (urgent)) - Authorized Specialty Diagnoses / Procedures Referred By Ben storm Referred To Contact HOME CARE / Home Care Diagnoses Influenza B Acute cystitis without hematuria Chronic atrial fibrillation (HCC) Kajal Cedeño PA-C [address] [place] [id number] Referral ID Status Reason Start Date Expiration Date Visits Requested Visits Authorized [id number] Authorized Specialty Services Required 01/23/2024 999 999 Question Answer Referral Priority Within 3 days (urgent) Where should this appointment be scheduled? External Comments Documentation of Gthh-or-Emwf Encounter Addendum Patient Name: Ying Rogers I certify that this patient is under my care and that I, or a nurse practitioner or physician's construction project assistant working with me, had a kyen-vv-meid encounter that meets the physician fvcc-[id number] encounter requirements with this patient on: 01/23/24 The encounter with the patient was in whole, or in part, for the following medical condition, which is the primary reason for home health care (List medical condition): Convalescence from acute illness I certify that, based on my findings, the following services are medically necessary home health services: Nursing and Physical Therapy To provide the following care/treatments: (All hospitalists not following the patient after discharge should complete this section): rehab, gait training, medication management Primary Care Physician to follow home care plan of care after discharge: Redd Smiley, DO My clinical findings support the need for the above services because: pt requires walker for ambulation Further, I certify that my clinical findings support that this patient is homebound (i.e. Absences from home require considerable and taxing effort and are for medical reasons or restorationism services or infrequently or of short duration when for other reason) because: Unstable gait with fall risk Physician Signature: Date of Signature: Physician Printed Name: Kajal Cedeño PA-C Reason for Visit * Reason Onset Date Comments Snf Visit - Discharge 01/23/2024 Encounter Details Date Type Department Care Team (Late st Contact Info) Description 01/23/2024 9:30 AM EDT Snf Visit [address] [address] Kajal Cedeño PA-C [address] [place] [id number] Metabolic encephalopathy*; Influenza B; Acute cystitis without hematuria; Chronic atrial fibrillation [...] as of this encounter (statuses as of 01/23/2024) Medications Medication Sig Dispensed Refills Start Date [...] before bedtime. 180 Tablet 1 12/11/2023 Active FLUoxetine HCl 20 MG Oral Capsule (PROzac)Indications:D epression with anxiety TAKE 1 CAPSULE BY MOUTH IN THE MORNING 90 Capsule 1 01/21/2024 Active documented as of this encounter (statuses as of 01/23/2024) Active Problems Problem Noted Date Diagnosed Date [...] as of this encounter (statuses as of 01/23/2024) Resolved Problems Problem Noted Date Diagnosed Date [...] as of this encounter (statuses as of 01/23/2024) Immunizations Name Administration Dates Next Due Pneumococcal [...] Sign Reading Time Taken Comments Blood Pressure 119/69 01/23/2024 9:35 AM EDT Pulse 89 01/23/2024 9:35 AM EDT Temperature 37 C (98.6 F) 01/23/2024 9:35 AM EDT Respiratory Rate 18 01/23/2024 9:35 AM EDT Oxygen Saturation 94% 01/23/2024 9:35 AM EDT room air Inhaled Oxygen Concentration - - Weight 61.2 kg (135 lb) 01/23/2024 9:35 AM EDT Height - - Body Mass Index 19.37 12/11/2023 11:33 AM EST documented in this encounter Progress Notes * Kajal Cedeño PA-C - 01/23/2024 9:30 AM EDT DISCHARGE NOTE TRANSITION EVENT: Type: Discharge to home Date: January 22 Code Status: No Code Name: Ying Rogers Date of : 1935 This note pertains to care provided at [facility]. Please see facility medical record for original note. This note is not to be edited or addended in [facility]. Editing or addending needs to occur in the facilities medical record. Discharge Medications: Current Outpatient Medications Medication Sig Dispense Refill Centrum Silver Adult 50+ Oral Tablet Take 1 Tablet by mouth in the morning. 100 Tab 0 Atorvastatin Calcium 10 MG Oral Tablet (Lipitor) [...] 1 Tablet before bedtime. 180 Tablet 1 FLUoxetine HCl 20 MG Oral Capsule (PROzac) TAKE 1 CAPSULE BY MOUTH IN THE MORNING 90 Capsule 1 No current facility-administered medications for this visit. S: Ying Rogers is being discharged from [facility] to home. Admitted to [facility] on 01/17/2024 for short- term rehab following hospitalization, which is summarized below. Per admitting note dated 01/21/24: "Recently admitted to [facility] on 01/10/24 because of influenza B [...] PT/OT. She completed IV cefepime here on 01/19/24." She completed IV antibiotics as planned and has progressed through therapies, is up and walking with a walker and is mostly independent with ADLs. Her admission has been otherwise brief and uncomplicated. She is feeling well today and without any acute complaints, she specifically denies headache, dizziness, chest pain, dyspnea, cough, palpitations, abdominal pain, nausea, vomiting, diarrhea, dysuria,back pain, leg edema, calf pain. 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 age 39 Patient Active Problem List Diagnosis Code ADVANCE DIRECTIVE INFORMATION HTN, GOAL BELOW 140/90 I10 Dyslipidemia, goal LDL below 130 E78.5 Chronic atrial fibrillation (HCC) I48.20 Depression with anxiety F41.8 Past Surgical History: Procedure Laterality Date LUMBAR SPINE FUSION W/BONE GRAFT 1988 PELVIS/HIP JOINT SURGERY NEC Left REMOVAL OF APPENDIX 1957 TOTAL HIP REPLACEMENT & PROSTHESIS Right Family History Problem Relation Age of Onset Diabetes Mother Heart Disorder Mother Diabetes Brother Hypertension Brother Review of patient's allergies indicates: Allergen Reactions Morphine Psych complications Zocor [Simvastatin] Muscle pain Cephalexin [Cephalosporins] Dizziness and nausea Hctz [Hydrochlorothiazide] Abdominal pain Lisinopril Cough Penicillins Propoxyphene Napsylate Quinine Sulfate Adequate nutrition/fluids: Yes Bowel/Bladder dysfunction: No Assistive Devices: with walker ADL: independent O: BP 119/69 | Pulse 89 | Temp 37 C (98.6 F) | Resp 18 | Wt 61.2 kg (135 lb) | SpO2 94% Comment: room air | BMI 19.37 kg/m | BSA 1.74 m General: alert, healthy, and no distress Head: Normocephalic Eye Exam: extraocular movements intact, conjunctiva are pink and non-injected, sclera clear Oropharynx: lips, buccal mucosa, and tongue normal and mucous membranes are moist Heart: irregularly irregular Lungs: chest symmetric with normal AP diameter, no chest deformities noted, no chest wall tenderness, lungs clear to auscultation Abdomen: abdomen soft, non-tender, normal bowel sounds, no masses or organomegaly, and no rebound or guarding Extremities: less than 2 second capillary refill, no joint deformities, effusion, or inflammation, no edema Neuro Exam: alert & oriented x 3 with fluent speech, no focal motor/sensory deficits Skin: skin color, texture, turgor are normal Results for orders placed or performed in visit on 01/22/24 BASIC METABOLIC PANEL Result Value Ref Range BUN 20 6 - 20 mg/dL Creatinine 0.9 0.5 - 1.0 mg/dL Estimated Glomerular Filtration Rate 63 >=60 mL/min Sodium 142 135 - 146 mmol/L Potassium 4.1 3.5 - 5.1 mmol/L Chloride 106 98 - 107 mmol/L CO2 25 22 - 32 mmol/L Anion Gap 11 7 - 15 mmol/L Glucose 103 70 - 120 mg/dL Calcium 9.2 8.4 - 10.2 mg/dL CBC Result Value Ref Range WBC 7.31 4.00 - 10.80 K/uL RBC 4.32 3.85 - 5.15 M/uL HGB 13.2 12.0 - 15.3 g/dL HCT 40.3 36.0 - 45.2 % MCV 93.3 81.5 - 97.5 fL MCH 30.6 27.0 - 34.0 pg MCHC 32.8 32.0 - 36.0 g/dL RDW 13.5 11.5 - 15.5 % PLT 174 140 - 400 K/uL MPV 11.2 6.6 - 11.1 fL DIFFERENTIAL, AUTOMATED Result Value Ref Range WBC 7.31 4.00 - 10.80 K/uL Neutrophils % 66.9 40.0 - 75.0 % Lymphocytes % 19.3 18.0 - 42.0 % Monocytes % 12.7 (H) 1.0 - 11.0 % Eosinophils % 0.8 0.0 - 6.0 % Basophils % 0.3 0.0 - 2.0 % Absolute Neutrophils 4.89 1.80 - 7.70 K/uL Absolute Lymphocytes 1.41 1.00 - 4.80 K/ul Absolute Monocytes 0.93 0.00 - 1.10 K/uL Absolute Eosinophils 0.06 0.00 - 0.70 K/uL Absolute Basophils 0.02 0.00 - 0.20 K/uL A: Metabolic encephalopathy (Primary) Resolved Influenza B - HOME HEALTH REFERRAL OP Resolved Acute cystitis without hematuria - HOME HEALTH REFERRAL OP Resolved, abx complete Chronic atrial fibrillation (HCC) - HOME HEALTH REFERRAL OP Anticoagulated on Eliquis 2.5 mg twice daily (defer to PCP, however may consider full dose as her weight is currently over 60 kg) Rate controlled with metoprolol succinate 100 mg twice daily HTN, GOAL BELOW 140/90 Stable on home regimen of metoprolol succinate 100 mg twice daily Dyslipidemia, goal LDL below 130 Home statin continued Depression with anxiety Home fluoxetine continued P: 1. Discharge to home 2. Home Health was consulted for nursing and PT. 3. Copy of chart sent to PCP 4. Patient to follow up with PCP within 7 days. 5. Client Resource Specialist: Sarai Perez at [facility] 6. I spent 32 minutes on discharge. Electronically signed by: Kajal Cedeño PA-C documented in this encounter Plan of Treatment Scheduled Referrals Name Type Priority Associated Diagnoses Orde r Schedule HOME HEALTH REFERRAL OP Referral Within 3 days (urgent) Influenza B Acute cystitis without hematuria Chronic atrial fibrillation (HCC) Ordered: 01/23/2024 Health Maintenance Due Date Last Done Comments [...] as of this encounter Visit Diagnoses Diagnosis Metabolic encephalopathy- Primary Influenza B Influenza with other respiratory manifestations Acute cystitis [...] 4:01 PM 05/23/2004 4:01 PM Care Teams Grounds Crew Supervisor Relationship Specialty Start Date End Date Redd Smiley DO [address] [place] [id number] PCP - General Internal Medicine 08/15/21 documented as of this encounter
--- OUTSIDE RECORDS SUMMARY | 2024-06-04 15:56 | External Medical Summary | Summary of Care ---
Author Name Unknown Organization [facility] Address [address] [facility] [address] Phone [phone] Care Team Providers Care Contract Associate Manager Name Role Phone MiladRedd sahu Primary Care Provid er Encounter Details Date Type Department Care Team (Late st Contact Info) Description 01/22/2024 Orders Only Lab Mobile Phlebotomy [facility] [address] [place] [address] Kajal Cedeño PA-C [address] [place] [address] UTI (urinary tract infection)* Allergies Active Allergy Reactions Criticality Noted Date Comments Cephalosporins 12/05/2007 Dizziness and nausea Hydrochlorothiazide Abdominal pain 07/16/2018 Lisinopril Cough 01/30/2018 Morphine Psych complications High 05/23/2020 Penicillins 02/14/2001 Propoxyphene Napsylate 12/02/2001 Quinine Sulfate 02/16/2003 Simvastatin Muscle pain Medium 07/04/2010 documented as of this encounter (statuses as of 01/22/2024) Medications Medication Sig Dispensed Refills Start Date [...] as of this encounter (statuses as of 01/22/2024) Active Problems Problem Noted Date Diagnosed Date [...] as of this encounter (statuses as of 01/22/2024) Resolved Problems Problem Noted Date Diagnosed Date [...] as of this encounter (statuses as of 01/22/2024) Immunizations Name Administration Dates Next Due Pneumococcal [...] as of this encounter Plan of Treatment Scheduled Orders Name Type Priority Associated Diagnoses Orde r Schedule BASIC METABOLIC PANEL Lab Routine UTI (urinary tract infection) Expected: 01/22/2024, Expires: 01/21/2025 CBC WITH WBC DIFFERENTIAL Lab Routine UTI (urinary tract infection) Expected: 01/22/2024, Expires: 01/21/2025 Health Maintenance Due Date Last Done Comments [...] as of this encounter Visit Diagnoses Diagnosis UTI (urinary tract infection)- Primary Urinary tract infection, site not specified documented in this encounter Advance Directives Latest Code Status on File Code Status Date Activated Date Inactivated Comments None 05/23/2004 4:01 PM 05/23/2004 4:01 PM Care Teams Contract Associate Manager Relationship Specialty Start Date End Date Redd Smiley DO [address] [place] [id number] PCP - General Internal Medicine 08/15/21 documented as of this encounter
--- OUTSIDE RECORDS SUMMARY | 2024-06-04 15:56 | External Medical Summary | Summary of Care ---
Author Name Unknown Organization [facility] Address [address] [place] [address] Phone [phone] Care Team Providers Care Take Out Waiter Name Role Phone Redd Guerra DO Primary Care Provid er Reason for Visit * Reason Comments eRx-Medication Refill Encounter Details Date Type Department Care Team ([facility] Contact Info) Description 01/20/2024 Refill Family [address] [address] Redd Guerra DO [address] [place] [phone] Depression with anxiety Allergies Active Allergy Reactions [...] THE MORNING 90 Capsule 1 01/21/2024 Active FLUoxetine HCl 20 MG Oral Capsule (PROzac)Indication s:Depression with anxiety TAKE 1 CAPSULE BY MOUTH IN THE MORNING 90 Capsule 1 07/19/2023 Discontinued documented as of this encounter (statuses [...] encounter Miscellaneous Notes * Telephone Encounter - Leodan Napoles [facility] - 01/21/2024 11:32 AM EDTSigned Prescriptions: Disp Refills FLUoxetine HCl 20 MG Oral Capsule (PROzac) 90 Cap*1 Sig: TAKE 1 CAPSULE BY MOUTH IN THE MORNINGAuthorizing Provider: REDD GUERRA User: LEODAN PALM documented in this encounter Plan of Treatment Health Maintenance Due Date Last Done Comments Zoster Vaccines (1 of 2) 1984 DXA Scan 06/15/2019 06/15/2016, 0812/2009, 08/30/2007, Additional history exists Albumin/Creatinine Ratio 07/09/2021 07/09/2018, 02/12 COVID-19 Vaccine (3 - season) 2023 02/21/2021, 01/24/2021 DTaP,Tdap,and Td Vaccines [...] 4:01 PM 05/23/2004 4:01 PM Care Teams Take Out Waiter Relationship Specialty Start Date End Date Redd Guerra DO [address] [place] [id number] PCP - General Internal Medicine 08/15/21 documented as of this encounter
--- OUTSIDE RECORDS SUMMARY | 2024-06-04 15:56 | External Medical Summary ---
Author Name Unknown Address Unknown Organization [facility] [address] [place] [address] Laboratory Report Ordering Provider Test Date Status IVÁN BRITTON 01/22/2024 05:45:00 Final Observation Date Value Abnormality Reference (Units ) Status BUN 01/22/2024 05:45:00 20 6-20 (mg/dL) Final Creatinine 01/22/2024 05:45:00 0.9 0.5-1.0 (mg/dL) Final Glomerular filtration rate/1.73 sq M.predicted [Volume Rate/Area] in Serum, Plasma or Blood by Creatinine-based formula (CKD-EPI) 01/22/2024 05:45:00 63 >=60 (mL/min) Final eGFR is calculated based on the CKD-EPI 2020 equation Sodium 01/22/2024 05:45:00 142 135-146 (m mol/L) Final Potassium 01/22/2024 05:45:00 4.1 3.5-5.1 (m mol/L) Final Cl 01/22/2024 05:45:00 106 98-107 (mm ol/L) Final CO2 01/22/2024 05:45:00 25 22-32 (mmo l/L) Final Anion gap 01/22/2024 05:45:00 11 7-15 (mmol /L) Final Glucose 01/22/2024 05:45:00 103 70-120 (mg /dL) Final Calcium 01/22/2024 05:45:00 9.2 8.4-10.2 ( mg/dL) Final Performing Location [facility] [address] [place] [address]
[2024-06-04] MEDS ORDERED: STAT IV Infusion **Titration per Protocol STA (16:20)
[2024-06-04] MEDS ORDERED: dilTIAZem HCL 125 MG in DEXTROSE 5% 100 ML IV SCH (16:30)
[2024-06-04] MEDS: cefTRIAXone SODIUM 2,000 MG/50 ML BAG IV SCH (16:47)
[2024-06-04] MEDS: dilTIAZem HCL 125 MG in DEXTROSE 5% 100 ML IV SCH (16:52)
--- NOTE | 2024-06-04 17:05 | Electrocardiogram Report ---
Test Reason : Blood Pressure : */* mmHG Vent. Rate : 108 BPM Atrial Rate : * BPM P-R Int : * ms QRS Dur : 68 ms QT Int : 348 ms P-R-T Axes : * 0 69 degrees QTcB Int : 466 ms Atrial fibrillation with rapid ventricular response Diffuse Nonspecific ST and T wave abnormality Abnormal ECG When compared with ECG of 11-Jan-2024 05:57, No significant change Confirmed by Ed Diop ([id number]) on 06/04/2024 5:04:39 PM Referred By: REFERRED SELF Confirmed By: Ed Diop
[2024-06-04 19:02] LABS: Hematocrit (blood only) 32.8 % (37.0-47.0); Hemoglobin 10.6 g/dl (12.0-16.0)
[2024-06-04] MEDS: MAGNESIUM SULFATE / D5W 1 GM/100 ML BAG IV ONE (19:09)
[2024-06-04] MEDS: SODIUM CHLORIDE 0.9% 1,000 ML IV SCH (19:10)
[2024-06-04] MEDS: ATORVASTATIN 10 MG TAB PO SCH (20:59)
[2024-06-04] MEDS: METOPROLOL SUCC 50MG EXT REL TAB PO SCH (20:59)
[2024-06-04] MEDS: AMMONIUM LACTATE 12% LOTION 225 GM BTL EXT SCH (21:03)
[2024-06-05] MEDS: oxyCODONE HCL IR 5 MG TAB (IMMEDIATE RELEASE) PO PRN (01:58)
[2024-06-05 06:26] LABS: Potassium 3.8 mmol/L (3.5-5.1)
[2024-06-05 06:31] LABS: Creatinine Clr Calc Pharmacy 49.8 ml/min; Est GFR (African American) 75.8 ml/min; Est GFR (Non-African American) 65.4 ml/min
[2024-06-05 06:39] LABS: Hematocrit (blood only) 29.3 % (37.0-47.0); Hemoglobin 9.6 g/dl (12.0-16.0); Mean Corpuscular Hemoglobin 30.9 pg (25.0-34.0); Mean Corpuscular Hgb Conc 32.8 g/dL (32.0-36.0); Mean Corpuscular Volume 94.2 fL (80.0-100.0); Platelet Count 98 K/uL (130-400); Platelet Estimate Decreased (Normal); RDW Standard Deviation 44.3 fL (36.4-46.3); Red Blood Count 3.11 M/uL (4.20-5.40); White Blood Count 5.75 K/ul (4.8-10.8)
[2024-06-05] MEDS: MULTIVITAMIN TAB PO SCH (08:09)
[2024-06-05] MEDS: FLUoxetine HCL 20 MG CAP PO SCH (08:09)
--- NOTE | 2024-06-05 08:21 | Electrocardiogram Report ---
Test Reason : Blood Pressure : */* mmHG Vent. Rate : 121 BPM Atrial Rate : * BPM P-R Int : * ms QRS Dur : 66 ms QT Int : 340 ms P-R-T Axes : * 7 130 degrees QTcB Int : 482 ms Atrial fibrillation with rapid ventricular response Minor Diffuse Nonspecific ST and T wave abnormality Abnormal ECG When compared with ECG of 04-Jun-2024 10:08, No significant change was found Confirmed by Ed Diop ([id number]) on 06/05/2024 8:20:59 AM Referred By: REFERRED SELF Confirmed By: Ed Diop
[2024-06-05] MEDS ORDERED: SODIUM CHLORIDE 0.9% 250 ML IV PRN (08:41)
[2024-06-05] MEDS: DIGOXIN 0.125 MG TAB PO SCH (10:46)
--- NOTE | 2024-06-05 12:33 | Hospitalist Progress Note ---
Date of Service June 05, 2024 Assessment & Plan (1) Sepsis with acute organ dysfunction: (2) Closed pelvic fracture: (3) Acute blood loss anemia: (4) Traumatic hematoma of right hip: (5) Urinary tract infection: (6) Acute metabolic encephalopathy: (7) Atrial fibrillation with rapid ventricular response: (8) Fall: (9) Ambulatory dysfunction: (10) Anxiety: (11) CKD (chronic kidney disease) stage 3, GFR 30-59 ml/min: Plan Patient presents to the emergency room after sustaining a fall at home most likely due to increased weakness from urinary tract infection. Patient also had significant metabolic encephalopathy from her infection indicating organ dysfunction. Patient sustained a significant pelvic fracture. Also noted to have her atrial fibrillation [id number]. Patient now remains critically ill. She is continue to have some rapid ventricular response and now noted to have some hypotension associate with shaded with acute blood loss from her fracture. She requires hospital level care and interventions. High risk for progression of her condition and poor outcomes if not managed in the hospital. Continue to hold Eliquis Transfuse 1 unit packed red blood cells, discussed blood consent with patient and she was agreeable Small fluid bolus to assess blood pressure while blood being transfused Decrease metoprolol for blood pressure, anticipate her rapid ventricular response will improve as her volume improves Continue digoxin, check level in a.m. Continue antibiotics for urinary tract infection, follow urine culture Follow hemoglobin levels posttransfusion Therapies Care management for probable placement Updated patient's daughter via phone Admission and Anticipated Discharge Date Admission Date: June 04, 2024 Subjective Patient states that she is feeling significantly improved states that she deafly tell she is less confused than yesterday does not feel as weak as yesterday denies any lightheadedness or dizziness, no chest pain. Physical Exam Physical Exam: Constitutional: Alert, generally weak, pale in appearance HEENT: Mucous membranes moist. Lungs: Clear to auscultation, decreased, no wheezes rales or rhonchi CV: S1-S2, Irregular, tachycardic Abdomen: Soft, nontender, nondistended Extremities: Significant hematoma right posterior thigh and hip Musculoskeletal: Tenderness to range of motion testing of pelvis Neuro: No focal deficits Psych: Cooperative, normal mood Results & Data Results & Data Vital Signs (Past 12 Hours) Vital Signs Temp Pulse Pulse Pulse Resp BP BP 06/05/24 12:18 36.5 C 129 H 18 92/48 L 06/05/24 10:46 117 H 06/05/24 10:45 36.5 C 117 H 18 85/51 L 06/05/24 08:58 06/05/24 07:53 109 H 06/05/24 07:39 36.4 C L 117 H 18 95/57 L 06/05/24 02:50 36.6 C 127 H 18 90/56 L Pulse Ox O2 Del Method 06/05/24 12:18 94 06/05/24 10:46 06/05/24 10:45 93 Room Air 06/05/24 08:58 Room Air 06/05/24 07:53 06/05/24 07:39 91 Room Air 06/05/24 02:50 95 Room Air Diagnostic Findings Reviewed imaging, laboratory and diagnostic studies. Pertinent findings as below. Hemoglobin 9.6, significantly decreased from 12.9 on admission BMP stable Urine culture growing gram-negative bacilli (2) Closed pelvic fracture Encounter type: initial encounter Laterality: right Pelvic bone location: pubis Sublocation of pubis: unspecified portion of pubis Qualified Code(s): S32.501A - Unspecified fracture of right pubis, initial encounter for closed fracture (5) Urinary tract infection Hematuria presence: without hematuria Urinary tract infection type: acute cystitis Qualified Code(s): N30.00 - Acute cystitis without hematuria (8) Fall Encounter type: initial encounter Qualified Code(s): W19.XXXA - Unspecified fall, initial encounter
[2024-06-05] MEDS: SODIUM CHLORIDE 0.9% 1,000 ML IV SCH (14:16)
--- NOTE | 2024-06-05 16:02 | Cardiology Consultation ---
Date of Consultation June 05, 2024 Assessment & Plan (1) Traumatic hematoma of right hip: (2) Atrial fibrillation with rapid ventricular response: (3) Closed pelvic fracture: Plan Patient with known/chronic afib borderline rate control in the past on high dose metoprolol succinate 100 mg BID. BP has been borderline low at times per patient and intermittent dizziness, which may or may not have contributed to her fall. Metoprolol held due to hypotension this morning. Digoxin added at 125 mcg. She was on digoxin previously and stopped for unknown reasons. normal renal function today. Metoprolol resumed at 25 mg BID. Titrate as BP allows and needed for HR. Holding parameters for < 90. (Prior home dose was 100 mg BID) Hold Eliquis for now given large right hip hematoma. Receiving transfusion of PRBC's for anemia. Resume Eliquis when hematoma resolves and hbg stabilizes. Case discussed with Dr. Lowry I spent a total of 50 minutes on the date of service in preparation, delivery, and documentation of the care provided to this patient, excluding any time spent in the performance of separately billed services. Radha Paulino PA-C Department of Cardiology, [facility] This chart was completed in part utilizing Speech Voice Recognition Software. Grammatical errors, random word insertions, pronoun errors, and incomplete sentences are an occasional consequence of this system due to software limitations, ambient noise, and hardware issues. Any formal questions or concerns about the content, text, or information contained within the body of this dictation should be directly addressed to the provider for clarification. Supervising Physician Co-Signing Physician Notes I have personally performed a history and physical examination on the patient. I have reviewed the advance practitioner's documentation, and I agree with, and take responsibility for the plan of care. 88-year-old female presenting with fall, pelvic fracture, possible lightheadedness and dizziness. History of chronic atrial fibrillation with borderline rate control. Denies palpitations or chest discomfort. Metoprolol held this a.m. Outpatient dose 100 mg twice daily. Borderline hypotensive sin ce admission. Restart metoprolol reduced dose, 50 mg twice daily. First dose of ordered for this evening. She received 1 dose of digoxin 125 mcg earlier today. I will give an additional 250 mcg orally now with plans to continue 125 mcg daily. Continue telemetry monitoring. Eliquis currently on hold due to traumatic hematoma. Cardiology will continue to follow during hospitalization. I spent a total of 40 minutes on the date of service in preparation, delivery, and documentation of the care provided to this patient, excluding any time spent in the performance of separately billed services. Randy Lowry DO, [facility] History of Present Illness Reason for Consultation: Afib RVR Requesting Physician: Jean-Claude Hospitalist Attending Physician: Dr. Lowry History of Present Illness Patient is a 88 year old female who presented to [facility] after sustaining a fall with resultant pelvic fracture and right hip hematoma. Patient believes her leg gave out causing the fall but she does admit to intermittent dizziness. Cardiology was consulted due to afib RVR on admission in setting of pelvic fracture. Ortho consulted and recommended conservative therapy for the pelvic fracture. No surgical intervention required. She also has large right hip hematoma with worsening anemia. Eliquis on hold. She has known/chronic afib dating back to 2021. She has been on low dose Eliquis 2.5 mg BID for many years. She had prior renal insufficiency and was felt given her age and borderline weight, low dose would be appropriate. She was previously on metoprolol and digoxin during prior hospitalization in Nov 2023. After this admission, digoxin was stopped and she remained on metoprolol for rate control. At time of consult, patient resting in bed. Denies acute complaints. Ordered to have transfusion soon due to worsening anemia. No dizziness or sense of palpitations. No chest pain or dyspnea. Allergies Allergy/AdvReac Type Severity Reaction Status Date / Time Penicillins Allergy Unknown CAN'T Verified 06/04/24 12:49 REMEMBER propoxyphene Allergy Unknown CAN'T Verified 06/04/24 12:49 REMEMBER quinine Allergy Unknown CAN'T Verified 06/04/24 12:49 REMEMBER morphine AdvReac Severe extreme Verified 06/04/24 12:49 confusion Cephalosporins AdvReac Intermediate DIZZINESS Verified 06/04/24 12:49 & NAUSEA lisinopril AdvReac Intermediate COUGH Verified 06/04/24 12:49 simvastatin AdvReac Intermediate MUSCLE PAIN Verified 06/04/24 12:49 Home Medications Medication Instructions Recorded Confirmed Type atorvastatin 10 mg tablet 10 mg PO HS 04/19/20 06/04/24 History fluoxetine 20 mg capsule 20 mg PO QAM 04/19/20 06/04/24 History acetaminophen 325 mg tablet 650 mg (2 x 325 mg) PO Q6H PRN 04/22/20 06/04/24 Rx pain #50 tabs apixaban 2.5 mg tablet (Eliquis) 2.5 mg PO BID 11/21/22 06/04/24 History multivitamin 1 tab PO DAILY 11/21/22 06/04/24 History dextromethorphan-guaifenesin 30 1 tab PO Q12H PRN Congestion 01/10/24 06/04/24 History mg-600 mg tablet extended [id number] hr (Mucinex DM) metoprolol succinate 100 mg 100 mg PO BID 01/10/24 06/04/24 History tablet,extended release 24 hr Patient History Medical History Ambulatory dysfunction Closed fracture of right hip Surgical History History of total right hip replacement Hx of appendectomy History of hip surgery Left H/O spinal fusion Family History Other Diabetes Heart disease Hypertension Social History Smoking Status: Never smoker Second Hand Exposure: No; Do You Dip or Chew Tobacco: No; Hx Alcohol Use: No Hx Substance Use: No Preferred Language: Wolof Communication Ability: Effective Cotton Stripper Required: No Beliefs That Will Affect Care: None marital status: / Current Living Situation: Alone Current Living Situation Comment: Lives home alone in apartment, daughter checks on her daily Feels Safe at Home: Yes Assistive Devices: Glasses and Walker Review of Systems Review of Systems: All systems reviewed & are unremarkable except as noted in HPI & below Physical Exam Constitutional: WD/WN, vitals as above no acute distress Neck: trachea midline, no thyromegaly Respiratory: normal respiratory effort; no labored breathing Auscultation: lungs clear to auscultation bilaterally Cardiovascular: Rate/Rhythm: + tachycardic and + irregularly irregular Heart Sounds: no murmur Vessels: no JVD Extremities: no edema Gastrointestinal (Abdomen): normal bowel sounds, soft, nontender, no hepatosplenomegaly Skin: no rashes, warm and dry Neurologic: PERRL, EOMI, accommodation nl, no face palsy, no dysarthria Results & Data Vital Signs (Past 12 Hours) Vital Signs Temp Pulse Pulse Pulse Resp BP BP 06/05/24 15:08 37.4 C 112 H 16 106/68 06/05/24 14:24 37.2 C 110 H 16 98/62 L 06/05/24 13:27 06/05/24 13:24 37.0 C 109 H 18 88/64 L 06/05/24 12:54 37.6 C H 112 H 14 96/60 L 06/05/24 12:39 36.9 C 108 H 14 87/47 L 06/05/24 12:18 36.5 C 129 H 18 92/48 L 06/05/24 10:46 117 H 06/05/24 10:45 36.5 C 117 H 18 85/51 L 06/05/24 08:58 06/05/24 07:53 109 H 06/05/24 07:39 36.4 C L 117 H 18 95/57 L Pulse Ox O2 Del Method O2 Flow Rate 06/05/24 15:08 97 2 06/05/24 14:24 92 2 06/05/24 13:27 92 Room Air 06/05/24 13:24 85 L 06/05/24 12:54 92 06/05/24 12:39 90 06/05/24 12:18 94 06/05/24 10:46 06/05/24 10:45 93 Room Air 06/05/24 08:58 Room Air 06/05/24 07:53 06/05/24 07:39 91 Room Air Laboratory Results Cardiac Enzymes 06/04/24 Range/Units 18:37 Troponin I High Sens 10.5 (0-14) pg/ml CBC 06/04/24 06/05/24 06/05/24 Range/Units 18:37 05:39 15:29 WBC 5.75 (4.8-10.8) K/ul RBC 3.11 L (4.20-5.40) M/uL Hgb 10.6 L 9.6 L 10.3 L (12.0-16.0) g/dl Hct 32.8 L 29.3 L (37.0-47.0) % Plt Count 98 L (130-400) K/uL Comprehensive Metabolic Panel 06/05/24 Range/Units 05:39 Sodium 139 (136-145) mmol/L Potassium 3.8 (3.5-5.1) mmol/L Chloride 108 H (98-107) mmol/L Carbon Dioxide 26 (21-32) mmol/L BUN 20 (6-23) mg/dl Creatinine 0.80 (0.6-1.2) mg/dl Glucose 111 H (70-99(Fasting)) mg/dl Calcium 8.0 L (8.6-10.3) mg/dl Intake and Output 06/05/24 06/05/24 06/05/24 06:59 14:59 22:59 Intake Total 1131.25 / 2946.750 1250 / 1560 310 / 1560 Output Total 200 / 200 75 / 75 Balance 931.25 / 2746.750 1175 / 1485 310 / 1485 Intake: IV 631.25 / 2246.750 1000 / 1000 Sodium Chloride 0.9% 1,000 ml @ 631.25 / 806.662 9373 / 1000 125 mls/hr IV .Q8H [facility] Rx#: [id number] Oral 500 / 700 250 / 250 Intake (Blood Product) Amt 0 / 310 310 / 310 Packed Cells, Leukoreduced 0 / 310 310 / 310 Unit [id number] Output: Urine Amount (Catheter) 200 / 200 75 / 75 [place]/Indwelling 200 / 200 75 / 75 Other: Weight 66.2 kg Weight Measurement Method [facility] Diagnostic Findings Telemetry reviewed: Afib with elevated ventricular rates around 100 EKG reviewed from 06/04/24: Afib with RVR at 121 bmp Diffuse non specific T wave abnormality No change from previous Medications Administered Current Inpatient Medications Acetaminophen (Acetaminophen 500 Mg Tab) 1,000 mg PO Q8H [facility] Stop: 07/04/24 13:59 Last Admin: 06/05/24 14:45 Dose: 1,000 mg Atorvastatin Calcium (Atorvastatin 10 Mg Tab) 10 mg PO HS [facility] Stop: 07/04/24 20:59 Last Admin: 06/04/24 20:59 Dose: 10 mg Digoxin (Digoxin 0.125 Mg Tab) 0.125 mg PO QAM [facility] Stop: 07/05/24 09:59 Last Admin: 06/05/24 10:46 Dose: 0.125 mg Fluoxetine HCl (Fluoxetine Hcl 20 Mg Cap) 20 mg PO QAM [facility] Stop: 07/05/24 08:59 Last Admin: 06/05/24 08:09 Dose: 20 mg Ceftriaxone Sodium (Rocephin) 2,000 mg in 50 mls @ 100 mls/hr IV Q24H [facility] Stop: 06/09/24 16:29 Last Infusion: 06/04/24 17:20 Dose: Infused Sodium Chloride (Nss) 250 mls @ 15 mls/hr IV .[id number] PRN PRN Reason: For Transfusion Duration Stop: 06/05/24 18:41 Sodium Chloride (Nss) 1,000 mls @ 250 mls/hr IV .Q4H [facility] Stop: 06/05/24 16:29 Last Admin: 06/05/24 14:16 Dose: 250 mls/hr Lactic Acid (Ammonium Lactate 12% Lotion 225 Gm Btl) 1 gm EXT BID [facility] Stop: 07/04/24 20:59 Last Admin: 06/05/24 08:13 Dose: 1 gm Metoprolol Succinate (Metoprolol Succ 25mg Ext Rel Tab) 25 mg PO BID [facility] Stop: 07/05/24 20:59 Multivitamins (Multivitamin Tab) 1 tab PO DAILY [facility] Stop: 07/05/24 08:59 Last Admin: 06/05/24 08:09 Dose: 1 tab Ondansetron HCl (Ondansetron Inj 2 Mg/Ml 2 Ml Vial) 4 mg IV Q6H PRN PRN Reason: Nausea Stop: 07/04/24 15:42 Oxycodone HCl (Oxycodone Hcl Ir 5 Mg Tab (Immediate Release)) 2.5 mg PO Q6H PRN PRN Reason: Severe Pain (Scale 7, 8, 9,10) Stop: 06/18/24 16:40 Last Admin: 06/05/24 10:31 Dose: 2.5 mg Polyethylene Glycol (Polyethylene (Miralax) 17 Gm Pack) 17 gm PO DAILY PRN PRN Reason: Constipation Stop: 07/04/24 15:42 (1) Traumatic hematoma of right hip Encounter type: initial encounter Qualified Code(s): S70.01XA - Contusion of right hip, initial encounter (3) Closed pelvic fracture Encounter type: initial encounter Laterality: right Pelvic bone location: pubis Sublocation of pubis: unspecified portion of pubis Qualified Code(s): S32.501A - Unspecified fracture of right pubis, initial encounter for closed fracture
[2024-06-05] MEDS: DIGOXIN 0.125 MG TAB PO ONE (17:23)
[2024-06-05] MEDS: METOPROLOL SUCC 50MG EXT REL TAB PO SCH (20:31)
[2024-06-05] MEDS ORDERED: METOPROLOL SUCC 25MG EXT REL TAB PO SCH (21:00)
[2024-06-06 06:00] LABS: Hematocrit (blood only) 31.4 % (37.0-47.0); Hemoglobin 10.4 g/dl (12.0-16.0); Mean Corpuscular Hemoglobin 30.6 pg (25.0-34.0); Mean Corpuscular Hgb Conc 33.1 g/dL (32.0-36.0); Mean Corpuscular Volume 92.4 fL (80.0-100.0); Platelet Count 91 K/uL (130-400); RDW Coefficient of Variation 14.6 % (11.5-14.5); RDW Standard Deviation 49.2 fL (36.4-46.3); White Blood Count 6.28 K/ul (4.8-10.8)
[2024-06-06 06:15] LABS: BUN Creatinine Ratio 26.2 (10-20); Creatinine Clr Calc Pharmacy 57.1 ml/min; Est GFR (African American) 91.2 ml/min; Est GFR (Non-African American) 78.7 ml/min
--- NOTE | 2024-06-06 08:30 | Cardiology Progress Note ---
Date of Service June 06, 2024 Assessment & Plan (1) Traumatic hematoma of right hip: (2) Atrial fibrillation with rapid ventricular response: (3) Closed pelvic fracture: Plan Patient with known/chronic afib borderline rate control in the past on high dose metoprolol succinate 100 mg BID. BP has been borderline low at times per patient and intermittent dizziness, which may or may not have contributed to her fall. Metoprolol held due to hypotension this morning. Digoxin added at 125 mcg. She was on digoxin previously and stopped for unknown reasons. normal renal function today. Metoprolol resumed at 25 mg BID. Titrate as BP allows and needed for HR. Holding parameters for < 90. (Prior home dose was 100 mg BID) Hold Eliquis for now given large right hip hematoma. Receiving transfusion of PRBC's for anemia. Resume Eliquis when hematoma resolves and hbg stabilizes. 06/06/2024: -Patient doing well from a cardiac perspective -H/H remains stable. -Recommendation has been made to continue to hold Eliquis per ortho throughout the weekend to allow healing of fracture. -Will continue to follow with plans to resume Eliquis at 2.5mg PO BID with resolution of hip hematoma and if H/H remains stable. -Continue Digoxin 0.125mg Daily and Toprol xl 50mg PO BID. Case has been discussed with Dr. Lowry. Further recommendations regarding plan of care as per his assessment. I spent a total of 30 minutes on the date of service in preparation, delivery, documentation of the care provided to the patient excluding any time spent in the performance of separately billed services. SONYA Aguilar [facility] Cardiology [facility] Admission and Anticipated Discharge Date Admission Date: June 04, 2024 Supervising Physician Co-Signing Physician Notes I have personally performed a history and physical examination on the patient. I have reviewed the advance practitioner's documentation, and I agree with, and take responsibility for the plan of care. 88-year-old female presenting with fall, pelvic fracture, possible lightheadedness and dizziness. History of chronic atrial fibrillation with borderline rate control. Denies palpitations or chest discomfort. Metoprolol reduced to 50 mg twice daily. Digoxin restarted during hospitalization. Fair rate control noted on telemetry. No further inpatient cardiac testing or intervention recommended. Eliquis remains on hold since admission per recommendations of orthopedic surgery. Resume when able if hemoglobin remains stable. I spent a total of 40 minutes on the date of service in preparation, delivery, and documentation of the care provided to this patient, excluding any time spent in the performance of separately billed services. Randy Lowry DO, [facility] Subjective 06/06/2024: Patient seen and examined in follow up today. Feeling well overall. Reports that she is more comfortable and has been able to get good rest. Denies any chest pain, pressure, palpitations, no shortness of breath, PND, pre- syncope, syncope or edema. Labs, vitals, diagnostics, telemetry and documentation reviewed. Telemetry reviewed showing A-fib rates 90's. No acute events overnight. H/H stable Review of Systems Review of Systems: All systems reviewed & are unremarkable except as noted in HPI & below Physical Exam Constitutional: + frail appearing; no acute distress and not ill appearing Neck: normal visual inspection and trachea midline Respiratory: normal respiratory effort, lungs clear to auscultation no cough Auscultation: no crackles, no rales, no rhonchi and no wheezes Cardiovascular: Rate/Rhythm: + irregularly irregular Heart Sounds: normal S1, normal S2 and + murmur (+ I/ systolic ) Vessels: dorsalis pedis pulses present; no JVD Extremities: no edema Skin: no rashes, warm and dry Psychiatric: A+Ox3, euthymic affect Results & Data Vital Signs (Past 12 Hours) Vital Signs Temp Pulse Pulse Resp BP Pulse Ox O2 Del Method 06/06/24 08:09 91 H 06/06/24 07:22 37.0 C 83 16 118/70 92 Room Air 06/06/24 03:31 36.7 C 93 H 18 129/76 91 Nasal Cannula 06/05/24 23:15 36.5 C 90 15 130/75 94 Nasal Cannula O2 Flow Rate 06/06/24 08:09 06/06/24 07:22 06/06/24 03:31 2 06/05/24 23:15 2 Laboratory Results CBC 06/05/24 06/06/24 Range/Units 15:29 05:20 WBC 6.28 (4.8-10.8) K/ul RBC 3.40 L (4.20-5.40) M/uL Hgb 10.3 L 10.4 L (12.0-16.0) g/dl Hct 31.4 L (37.0-47.0) % Plt Count 91 L (130-400) K/uL Comprehensive Metabolic Panel 06/06/24 Range/Units 05:20 Sodium 138 (136-145) mmol/L Potassium 4.0 (3.5-5.1) mmol/L Chloride 108 H (98-107) mmol/L Carbon Dioxide 26 (21-32) mmol/L BUN 17 (6-23) mg/dl Creatinine 0.65 (0.6-1.2) mg/dl Glucose 96 (70-99(Fasting)) mg/dl Calcium 8.0 L (8.6-10.3) mg/dl Intake and Output 06/05/24 06/06/24 06/06/24 22:59 06:59 14:59 Intake Total 1460 / 2810 100 / 2810 Output Total 225 / 650 350 / 650 Balance 1235 / 2160 -250 / 2160 Intake: IV 1050 / 2050 Sodium Chloride 0.9% 1,000 ml @ 1000 / 1000 250 mls/hr IV .Q4H [facility] Rx#: [id number] cefTRIAXone SODIUM 2,000 mg In 50 / 50 50 ml @ 100 mls/hr IV Q24H [facility] Rx#:[id number] Oral 100 / 450 100 / 450 Intake (Blood Product) Amt 310 / 310 Packed Cells, Leukoreduced 310 / 310 Unit [id number] Output: Urine Amount (Catheter) 225 / 650 350 / 650 [place]/Indwelling 225 / 650 350 / 650 Other: Weight 70.5 kg Weight Measurement Method Built in [facility] (1) Traumatic hematoma of right hip Encounter type: initial encounter Qualified Code(s): S70.01XA - Contusion of right hip, initial encounter (3) Closed pelvic fracture Encounter type: initial encounter Laterality: right Pelvic bone location: pubis Sublocation of pubis: unspecified portion of pubis Qualified Code(s): S32.501A - Unspecified fracture of right pubis, initial encounter for closed fracture
--- NOTE | 2024-06-06 11:45 | Hospitalist Progress Note ---
Date of Service June 06, 2024 Assessment & Plan (1) Sepsis with acute organ dysfunction: (2) Closed pelvic fracture: (3) Acute blood loss anemia: (4) Traumatic hematoma of right hip: (5) Urinary tract infection: (6) Acute metabolic encephalopathy: (7) Atrial fibrillation with rapid ventricular response: (8) Fall: (9) Ambulatory dysfunction: (10) Anxiety: (11) CKD (chronic kidney disease) stage 3, GFR 30-59 ml/min: Plan Patient presents after a fall at home induced by weakness from urinary tract infection with subsequent pelvic fracture and acute blood loss from fracture. Acute sepsis and encephalopathy have resolved Patient's hemoglobin is stabilized, continue to monitor daily Continue to hold anticoagulation through the weekend allowing fracture to heal before restarting a bit more As needed pain control Therapies Continue ceftriaxone for urinary tract infection Case management to continue to pursue placement Blood pressure and heart rate controlled Updated daughter via phone Admission and Anticipated Discharge Date Admission Date: June 04, 2024 Subjective Patient reports feeling significantly improved. A little bit more strength. Feeling like her mentation is significantly improved. Physical Exam Physical Exam: Constitutional: Alert, paleness significantly improved HEENT: Mucous membranes moist. Lungs: Clear to auscultation, decreased, no wheezes rales or rhonchi CV: S1-S2, irregular Abdomen: Soft, nontender, nondistended Extremities: Large hematoma right posterior hip and the thigh, minimal tenderness, soft Neuro: No focal deficits Psych: Cooperative, normal mood Results & Data Results & Data Vital Signs (Past 12 Hours) Vital Signs Temp Pulse Pulse Resp BP Pulse Ox O2 Del Method 06/06/24 11:27 36.5 C 70 18 109/63 95 Room Air 06/06/24 08:09 91 H 06/06/24 07:22 37.0 C 83 16 118/70 92 Room Air 06/06/24 03:31 36.7 C 93 H 18 129/76 91 Nasal Cannula O2 Flow Rate 06/06/24 11:27 06/06/24 08:09 06/06/24 07:22 06/06/24 03:31 2 Diagnostic Findings Reviewed imaging, laboratory and diagnostic studies. Pertinent findings as below. Hemoglobin 10.4, improved posttransfusion and stable BMP stable Digoxin 0.6 Urine culture Klebsiella sensitive to ceftriaxone (2) Closed pelvic fracture Encounter type: initial encounter Laterality: right Pelvic bone location: pubis Sublocation of pubis: unspecified portion of pubis Qualified Code(s): S32.501A - Unspecified fracture of right pubis, initial encounter for closed fracture (4) Traumatic hematoma of right hip Encounter type: initial encounter Qualified Code(s): S70.01XA - Contusion of right hip, initial encounter (5) Urinary tract infection Hematuria presence: without hematuria Urinary tract infection type: acute cystitis Qualified Code(s): N30.00 - Acute cystitis without hematuria (8) Fall Encounter type: initial encounter Qualified Code(s): W19.XXXA - Unspecified fall, initial encounter
[2024-06-06] MEDS: bisacodyL 10 MG SUPP PR STA (18:03)
[2024-06-06] MEDS: POLYETHYLENE (MIRALAX) 17 GM PACK PO PRN (18:09)
[2024-06-07 07:16] LABS: Calcium 8.6 mg/dl (8.6-10.3); Potassium 4.3 mmol/L (3.5-5.1)
[2024-06-07 07:21] LABS: BUN Creatinine Ratio 22.2 (10-20); Creatinine Clr Calc Pharmacy 68.7 ml/min; Est GFR (Non-African American) 83.7 ml/min
[2024-06-07] MEDS: POLYETHYLENE (MIRALAX) 17 GM PACK PO SCH (08:04)
[2024-06-07] MEDS: DOCUSATE SODIUM/SENNA 50/8.6MG TAB PO SCH (08:04)
[2024-06-07] MEDS: MAGNESIUM CITRATE 296 ML/BTL PO SCH (08:04)
[2024-06-07] MEDS: METOPROLOL SUCC 25MG EXT REL TAB PO SCH (08:05)
[2024-06-07 08:15] LABS: Hematocrit (blood only) 35.3 % (37.0-47.0); Hemoglobin 11.5 g/dl (12.0-16.0); Mean Corpuscular Hemoglobin 30.2 pg (25.0-34.0); Mean Corpuscular Hgb Conc 32.6 g/dL (32.0-36.0); Mean Corpuscular Volume 92.7 fL (80.0-100.0); Mean Platelet Volume 12.1 fL (9.4-12.4); Platelet Count 74 K/uL (130-400); Platelet Estimate Decreased (Normal); RDW Standard Deviation 47.9 fL (36.4-46.3); Red Blood Count 3.81 M/uL (4.20-5.40); White Blood Count 6.64 K/ul (4.8-10.8)
--- NOTE | 2024-06-07 08:37 | Cardiology Progress Note ---
Date of Service June 07, 2024 Assessment & Plan (1) Traumatic hematoma of right hip: (2) Atrial fibrillation with rapid ventricular response: (3) Closed pelvic fracture: Plan Patient with known/chronic afib borderline rate control in the past on high dose metoprolol succinate 100 mg BID. BP has been borderline low at times per patient and intermittent dizziness, which may or may not have contributed to her fall. Metoprolol held due to hypotension this morning. Digoxin added at 125 mcg. She was on digoxin previously and stopped for unknown reasons. normal renal function today. Metoprolol resumed at 25 mg BID. Titrate as BP allows and needed for HR. Holding parameters for < 90. (Prior home dose was 100 mg BID) Hold Eliquis for now given large right hip hematoma. Receiving transfusion of PRBC's for anemia. Resume Eliquis when hematoma resolves and hbg stabilizes. 06/06/2024: -Patient doing well from a cardiac perspective -H/H remains stable. -Recommendation has been made to continue to hold Eliquis per ortho throughout the weekend to allow healing of fracture. -Will continue to follow with plans to resume Eliquis at 2.5mg PO BID with resolution of hip hematoma and if H/H remains stable. -Continue Digoxin 0.125mg Daily and Toprol xl 50mg PO BID. Case has been discussed with Dr. Lowry. Further recommendations regarding plan of care as per his assessment. I spent a total of 30 minutes on the date of service in preparation, delivery, documentation of the care provided to the patient excluding any time spent in the performance of separately billed services. SONYA Aguilar [facility] Admission and Anticipated Discharge Date Admission Date: June 04, 2024 Subjective 06/07/2024: Patient seen and examined in follow up today. Feeling well overall. Reports that she is more comfortable and has been able to get good rest. Denies any chest pain, pressure, palpitations, no shortness of breath, PND, pre- syncope, syncope or edema. Labs, vitals, diagnostics, telemetry and documentation reviewed. Telemetry reviewed showing A-fib rates 90's. No acute events overnight. H/H with improvement, stable. 11.5/35.3 Physical Exam Constitutional: + frail appearing; no acute distress and not ill appearing Neck: normal visual inspection and trachea midline Respiratory: normal respiratory effort, lungs clear to auscultation no cough Auscultation: no crackles, no rales, no rhonchi and no wheezes Cardiovascular: Rate/Rhythm: + irregularly irregular Heart Sounds: normal S1, normal S2 and + murmur (+ I/ systolic ) Vessels: dorsalis pedis pulses present; no JVD Extremities: no edema Skin: no rashes, warm and dry Psychiatric: A+Ox3, euthymic affect Results & Data Vital Signs (Past 12 Hours) Vital Signs Temp Pulse Pulse Resp BP BP Pulse Ox 06/07/24 08:05 92 H 06/07/24 07:20 36.4 C L 92 H 16 148/71 H 98 06/06/24 21:33 92 H 139/77 96 O2 Del Method 06/07/24 08:05 06/07/24 07:20 Room Air 06/06/24 21:33 Room Air (1) Traumatic hematoma of right hip Encounter type: initial encounter Qualified Code(s): S70.01XA - Contusion of right hip, initial encounter (3) Closed pelvic fracture Encounter type: initial encounter Laterality: right Pelvic bone location: pubis Sublocation of pubis: unspecified portion of pubis Qualified Code(s): S32.501A - Unspecified fracture of right pubis, initial encounter for closed fracture
[2024-06-07] MEDS: MINERAL OIL ENEMA 133 ML BTL PR ONE (11:28)
--- NOTE | 2024-06-07 12:50 | Hospitalist Progress Note ---
Date of Service June 07, 2024 Assessment & Plan (1) Closed pelvic fracture: (2) Traumatic hematoma of right hip: (3) Urinary tract infection: (4) Sepsis with acute organ dysfunction: (5) Acute blood loss anemia: (6) Acute metabolic encephalopathy: (7) Atrial fibrillation with rapid ventricular response: (8) Fall: (9) Ambulatory dysfunction: (10) Anxiety: (11) CKD (chronic kidney disease) stage 3, GFR 30-59 ml/min: Plan Patient is showing steadily improvement Blood pressure and heart rate starting to increase as patient starts to improve after the initial trauma the pelvic fracture. Increase metoprolol to 75 mg twice daily (patient's previous home dose was 100 mg twice daily) Continue therapies Bowel regimen Discontinue Rocephin after today's dose, will complete a course of antibiotics for her UTI Daughter at bedside updated Care management pursuing placement Admission and Anticipated Discharge Date Admission Date: June 04, 2024 Subjective Patient is feeling much better. Had a bowel movement this morning. Physical Exam Physical Exam: Constitutional: Alert HEENT: Mucous membranes moist. Lungs: Clear to auscultation, decreased, no wheezes rales or rhonchi CV: S1-S2, irregular Abdomen: Soft, nontender, nondistended Extremities: No significant edema Neuro: No focal deficits Psych: Cooperative, normal mood Results & Data Results & Data Vital Signs (Past 12 Hours) Vital Signs Temp Pulse Pulse Resp BP Pulse Ox O2 Del Method 06/07/24 08:05 92 H 06/07/24 07:20 36.4 C L 92 H 16 148/71 H 98 Room Air Diagnostic Findings Reviewed imaging, laboratory and diagnostic studies. Pertinent findings as below. Hemoglobin 11.5, improved BMP stable (1) Closed pelvic fracture Encounter type: initial encounter Laterality: right Pelvic bone location: pubis Sublocation of pubis: unspecified portion of pubis Qualified Code(s): S32.501A - Unspecified fracture of right pubis, initial encounter for closed fracture (2) Traumatic hematoma of right hip Encounter type: initial encounter Qualified Code(s): S70.01XA - Contusion of right hip, initial encounter (3) Urinary tract infection Hematuria presence: without hematuria Urinary tract infection type: acute cystitis Qualified Code(s): N30.00 - Acute cystitis without hematuria (8) Fall Encounter type: initial encounter Qualified Code(s): W19.XXXA - Unspecified fall, initial encounter
--- NOTE | 2024-06-08 16:18 | Hospitalist Progress Note ---
Date of Service June 08, 2024 Assessment & Plan (1) Closed pelvic fracture: (2) Traumatic hematoma of right hip: (3) Urinary tract infection: (4) Sepsis with acute organ dysfunction: (5) Acute blood loss anemia: (6) Acute metabolic encephalopathy: (7) Atrial fibrillation with rapid ventricular response: (8) Fall: (9) Ambulatory dysfunction: (10) Anxiety: (11) CKD (chronic kidney disease) stage 3, GFR 30-59 ml/min: Plan Patient overall significantly improved, Continue to hold anticoagulation, resume 7 days posttrauma Continue therapies Case management pursuing rehab placement Admission and Anticipated Discharge Date Admission Date: June 04, 2024 Subjective Patient reports having good night. Pain overall controlled. Feeling stronger Physical Exam Physical Exam: Constitutional: Alert HEENT: Mucous membranes moist. Lungs: Clear to auscultation, decreased, no wheezes rales or rhonchi CV: S1-S2, regular Abdomen: Soft, nontender, nondistended Extremities: Right posterior thigh hematoma tender, not warm, not red, overall stable Neuro: No focal deficits Psych: Cooperative, normal mood Results & Data Results & Data Vital Signs (Past 12 Hours) Vital Signs Temp Pulse Pulse Pulse Resp BP BP 06/08/24 14:20 36.5 C 73 18 116/72 06/08/24 12:06 36.6 C 72 17 134/82 06/08/24 09:03 88 06/08/24 08:41 36.5 C 69 17 144/86 H Pulse Ox O2 Del Method 06/08/24 14:20 96 Room Air 06/08/24 12:06 94 Room Air 06/08/24 09:03 06/08/24 08:41 95 Room Air (1) Closed pelvic fracture Encounter type: initial encounter Laterality: right Pelvic bone location: pubis Sublocation of pubis: unspecified portion of pubis Qualified Code(s): S32.501A - Unspecified fracture of right pubis, initial encounter for closed fracture (2) Traumatic hematoma of right hip Encounter type: initial encounter Qualified Code(s): S70.01XA - Contusion of right hip, initial encounter (3) Urinary tract infection Hematuria presence: without hematuria Urinary tract infection type: acute cystitis Qualified Code(s): N30.00 - Acute cystitis without hematuria (8) Fall Encounter type: initial encounter Qualified Code(s): W19.XXXA - Unspecified fall, initial encounter
--- NOTE | 2024-06-09 12:25 | Hospitalist Progress Note ---
<Statement entered by Alfredo Francisco DO - 06/09/24 14:48> I have seen and examined the patient and have discussed the case with the provider above. I have reviewed the advanced practitioner's documentation, and I agree with, and take responsibility for that plan of care. 10 minutes spent on evaluation and coordination care with patient Patient sitting up in chair, pain well-controlled, no acute complaints. Waiting discharge to [facility] Plan of care as outlined below Date of Service June 09, 2024 Assessment & Plan (1) Traumatic hematoma of right hip: (2) Fall: (3) Closed pelvic fracture: (4) UTI (urinary tract infection): (5) Chronic atrial fibrillation: (6) CKD (chronic kidney disease) stage 3, GFR 30-59 ml/min: Plan This is an 88 year old female with PMH atrial fibrillation anticoagulated on Eliquis, HTN, dyslipidemia, anxiety who presents with R hip pain after fall and was found to have an acute fracture of the inferior right pubic ring, UTI and A fib with RVR. Fall Ambulatory dysfunction Hip/pelvis XR with an acute fracture of the inferior right pubic ring Ortho service evaluated - WBAT with walker, hold Eliquis for now due to hematoma - resume Eliquis on 06/11 CT head, cervical spine CT and CXR reviewed - no acute injury or abnormalities noted PT/OT recommending rehab Follow up with orthopedics in approximately 1 month Scheduled Tylenol, lidocaine patch, adding oxycodone for breakthrough severe pain Fall precautions Chronic Atrial fib continue metoprolol and resume eliquis when able Acute metabolic encephalopathy: Urinary tract infection: Similar confusion and generalized weakness to previous UTIs Urine + Klebsiella oxytoca, likely a colonized organism s/p IV cefepime, tx complete, [place] removed daughter concerned she still may have a UTI, will obtain a straight cath sample, she is afebrile, will repeat labs cbc, bmp in a.m. HLD (hyperlipidemia):continue statin HS Anxiety: chronic, stable Continue fluoxetine CKD (chronic kidney disease) stage 3, GFR 30-59 ml/min: chronic, stable DVT Ppx: Holding Eliquis for now Code status: DNR/DNI PCP: Dr Sobia Garcia: medically stable for discharge, awaiting rehab placement I spent a total of 45 minutes coordinating, documenting, and providing care for this patient excluding time spent in the performance of separately billed services. Admission and Anticipated Discharge Date Admission Date: June 04, 2024 Subjective Patient was seen and examined in room 309. Follow-up UTI, fall, pubic rami fracture. ROS unreliable in setting of dementia. Overall she offers no acute concerns. She denies f/c/s, chest pain, sob, n/v/d. She reports a good BM yesterday. She feels her mind isn't quite, "straight," yet. Review of Systems Review of Systems: All systems reviewed & are unremarkable except as noted in HPI & below Physical Exam Physical Exam: Gen: elderly, F, sitting up in bedside chair, WD/WN, NAD, A&O x2 basics only HEENT: Normocephalic, atraumatic, conjunctivae moist, sclerae anicteric, mucous membranes moist. Lung: Clear to Auscultation bilaterally, no wheezes/rales/rhonchi Heart: Regular rate, Irregular rhythm, no murmurs, rubs, or gallops Abdomen: Soft, NT, ND +BS x 4 Extremities: No edema Skin: Warm, no rash, negative turgor. Results & Data Results & Data Vital Signs (Past 12 Hours) Vital Signs Temp Pulse Pulse Resp BP Pulse Ox O2 Del Method 06/09/24 08:55 88 06/09/24 06:57 36.4 C L 80 18 157/80 H 90 Room Air Medications Administered Current Inpatient Medications Acetaminophen (Acetaminophen 500 Mg Tab) 1,000 mg PO Q8H [facility] Stop: 07/04/24 13:59 Last Admin: 06/09/24 05:55 Dose: 1,000 mg Atorvastatin Calcium (Atorvastatin 10 Mg Tab) 10 mg PO HS [facility] Stop: 07/04/24 20:59 Last Admin: 06/08/24 20:39 Dose: 10 mg Digoxin (Digoxin 0.125 Mg Tab) 0.125 mg PO QAM [facility] Stop: 07/05/24 09:59 Last Admin: 06/09/24 08:55 Dose: 0.125 mg Fluoxetine HCl (Fluoxetine Hcl 20 Mg Cap) 20 mg PO QAM [facility] Stop: 07/05/24 08:59 Last Admin: 06/09/24 08:57 Dose: 20 mg Lactic Acid (Ammonium Lactate 12% Lotion 225 Gm Btl) 1 gm EXT BID [facility] Stop: 07/04/24 20:59 Last Admin: 06/09/24 08:53 Dose: 1 gm Metoprolol Succinate (Metoprolol Succ 25mg Ext Rel Tab) 75 mg PO BID [facility] [place] Stop: 07/07/24 08:59 Last Admin: 06/09/24 08:54 Dose: 75 mg Multivitamins (Multivitamin Tab) 1 tab PO DAILY [facility] Stop: 07/05/24 08:59 Last Admin: 06/09/24 08:55 Dose: 1 tab Ondansetron HCl (Ondansetron Inj 2 Mg/Ml 2 Ml Vial) 4 mg IV Q6H PRN PRN Reason: Nausea Stop: 07/04/24 15:42 Oxycodone HCl (Oxycodone Hcl Ir 5 Mg Tab (Immediate Release)) 2.5 mg PO Q6H PRN PRN Reason: Severe Pain (Scale 7, 8, 9,10) Stop: 06/18/24 16:40 Last Admin: 06/06/24 18:27 Dose: 2.5 mg Polyethylene Glycol (Polyethylene (Miralax) 17 Gm Pack) 17 gm PO DAILY [facility] [place] Stop: 07/07/24 08:59 Last Admin: 06/09/24 08:57 Dose: 17 gm Senna/Docusate Sodium (Docusate Sodium/Senna 50/8.6mg Tab) 1 tab PO BID [facility] Stop: 07/07/24 08:59 Last Admin: 06/09/24 08:56 Dose: 1 tab (1) Traumatic hematoma of right hip Encounter type: initial encounter Qualified Code(s): S70.01XA - Contusion of right hip, initial encounter (2) Fall Encounter type: initial encounter Qualified Code(s): W19.XXXA - Unspecified fall, initial encounter (3) Closed pelvic fracture Encounter type: initial encounter Laterality: right Pelvic bone location: pubis Sublocation of pubis: unspecified portion of pubis Qualified Code(s): S32.501A - Unspecified fracture of right pubis, initial encounter for closed fracture
[2024-06-09 13:46] LABS: Appearance Urine Cloudy (Clear); Bacteria Urine Automated None Seen (None Seen); Bilirubin Urine Negative (Negative); Blood Urine Negative (Negative); Cast Urine Automated 0-2 /lpf (0-2); Color Urine Yellow; Glucose Urine UA Negative (Negative); Ketones Urine Negative (Negative); Leukocyte Esterase Urine 2+ (Negative); Nitrite Urine Negative (Negative); Protein Urine Negative (Negative); Specific Gravity Urine 1.019 (1.000-1.030); Urobilinogen Urine Negative (Negative); WBC Urine Automated >50 /hpf (0-5); pH Urine 6.5 (4.5-7.5)
[2024-06-10 06:40] LABS: Hematocrit (blood only) 37.2 % (37.0-47.0); Hemoglobin 11.9 g/dl (12.0-16.0); Mean Corpuscular Hemoglobin 30.1 pg (25.0-34.0); Mean Corpuscular Volume 94.2 fL (80.0-100.0); Mean Platelet Volume 10.4 fL (9.4-12.4); Platelet Count 171 K/uL (130-400); RDW Coefficient of Variation 13.5 % (11.5-14.5); RDW Standard Deviation 46.6 fL (36.4-46.3); Red Blood Count 3.95 M/uL (4.20-5.40); White Blood Count 7.16 K/ul (4.8-10.8)
[2024-06-10 07:13] LABS: BUN Creatinine Ratio 23.7 (10-20); Calcium 9.1 mg/dl (8.6-10.3); Creatinine Clr Calc Pharmacy 62.9 ml/min; Est GFR (African American) 94.2 ml/min; Est GFR (Non-African American) 81.3 ml/min; Potassium 4.5 mmol/L (3.5-5.1)
--- NOTE | 2024-06-10 11:24 | Hospitalist Progress Note ---
Date of Service June 10, 2024 Assessment & Plan (1) Traumatic hematoma of right hip: (2) Fall: (3) Closed pelvic fracture: (4) UTI (urinary tract infection): (5) Chronic atrial fibrillation: (6) CKD (chronic kidney disease) stage 3, GFR 30-59 ml/min: Plan This is an 88 year old female with PMH atrial fibrillation anticoagulated on Eliquis, HTN, dyslipidemia, anxiety who presents with R hip pain after fall and was found to have an acute fracture of the inferior right pubic ring, UTI and A fib with RVR. Fall Ambulatory dysfunction Hip/pelvis XR with an acute fracture of the inferior right pubic ring Ortho service evaluated - WBAT with walker, hold Eliquis for now due to hematoma - resume Eliquis on 06/11 CT head, cervical spine CT and CXR reviewed - no acute injury or abnormalities noted PT/OT recommending rehab Follow up with orthopedics in approximately 1 month Scheduled Tylenol, lidocaine patch, adding oxycodone for breakthrough severe pain Fall precautions Chronic Atrial fib increase metoprolol back to home dose of 100mg bid and resume eliquis on 06/11 On admission she was seen and eval by cards who reduced metoprolol to 25bid with addition of digoxin (pt was on before but stopped for unknown reasons) have been slowly titrating metoprolol back to 100mg bid for better rate control Acute metabolic encephalopathy: Urinary tract infection: Similar confusion and generalized weakness to previous UTIs Urine + Klebsiella oxytoca, likely a colonized organism s/p IV Ceftriaxone x 4 days, tx complete, [place] removed daughter concerned she still may have a UTI, will obtain a straight cath sample, she is afebrile, wbc wnl urine culture growing > 100k enterococcus, await final sensitivity before discharge HLD (hyperlipidemia):continue statin HS Anxiety: chronic, stable Continue fluoxetine CKD (chronic kidney disease) stage 3, GFR 30-59 ml/min: chronic, stable DVT Ppx: resume eliquis tomorrow Code status: DNR/DNI PCP: Dr Ramsay Dispo: medically stable for discharge, awaiting rehab placement, possible [facility] Discussed with Roxanna Antony on phone regarding current assessment and plan. She agrees with above. I spent a total of 47 minutes coordinating, documenting, and providing care for this patient excluding time spent in the performance of separately billed services. Admission and Anticipated Discharge Date Admission Date: June 04, 2024 Supervising Physician Co-Signing Physician Notes Attending addendum: The patient was seen and examined in medical problem presents with her daughter She has been feeling much better and seems to be at her baseline without any confusion She was noted to have urine culture positive for Enterococcus and awaiting sensitivity Denies any symptoms of UTI On examination Sitting on a chair without any acute distress Hemodynamically stable Physical examinations remain unremarkable Her labs, imaging studies and medications reviewed Fall with traumatic hematoma right hip and closed pelvic fracture Possible recurrent UTI She is awaiting placement Agree with assessment and plan as outlined above by Naomi Ledbetter PA-C and take the full responsibility of the patient care. DR Yaya Leslie Subjective Patient was seen and examined in room 309. Follow-up UTI, fall, pubic rami fracture. ROS unreliable in setting of dementia. Overall she offers no acute concerns. She denies f/c/s, chest pain, sob, n/v/d. She has been walking around all morning with therapy she reports. Spoke to Daughter on phone who feels her mentation has improved over last 2 days. Review of Systems Review of Systems: All systems reviewed & are unremarkable except as noted in HPI & below Physical Exam Physical Exam: Gen: elderly, F, sitting up in bedside chair, WD/WN, NAD, A&O x2 basics only HEENT: Normocephalic, atraumatic, conjunctivae moist, sclerae anicteric, mucous membranes moist. Lung: Clear to Auscultation bilaterally, no wheezes/rales/rhonchi Heart: Regular rate, Irregular rhythm, no murmurs, rubs, or gallops Abdomen: Soft, NT, ND +BS x 4 Extremities: No edema Skin: Warm, no rash, negative turgor. Results & Data Results & Data Vital Signs (Past 12 Hours) Vital Signs Temp Pulse Pulse Resp BP Pulse Ox O2 Del Method 06/10/24 08:28 96 H 06/10/24 07:46 36.5 C 80 18 150/74 H 97 Room Air Medications Administered Current Inpatient Medications Acetaminophen (Acetaminophen 500 Mg Tab) 1,000 mg PO Q8H [facility] Stop: 07/04/24 13:59 Last Admin: 06/10/24 05:55 Dose: 1,000 mg Atorvastatin Calcium (Atorvastatin 10 Mg Tab) 10 mg PO HS [facility] Stop: 07/04/24 20:59 Last Admin: 06/09/24 20:25 Dose: 10 mg Digoxin (Digoxin 0.125 Mg Tab) 0.125 mg PO QAM [facility] Stop: 07/05/24 09:59 Last Admin: 06/10/24 08:28 Dose: 0.125 mg Fluoxetine HCl (Fluoxetine Hcl 20 Mg Cap) 20 mg PO QAM [facility] Stop: 07/05/24 08:59 Last Admin: 06/10/24 08:30 Dose: 20 mg Lactic Acid (Ammonium Lactate 12% Lotion 225 Gm Btl) 1 gm EXT BID [facility] Stop: 07/04/24 20:59 Last Admin: 06/10/24 08:27 Dose: 1 gm Metoprolol Succinate (Metoprolol Succ 25mg Ext Rel Tab) 75 mg PO BID [facility] Stop: 07/07/24 08:59 Last Admin: 06/10/24 08:29 Dose: 75 mg Multivitamins (Multivitamin Tab) 1 tab PO DAILY [facility] Stop: 07/05/24 08:59 Last Admin: 06/10/24 08:28 Dose: 1 tab Ondansetron HCl (Ondansetron Inj 2 Mg/Ml 2 Ml Vial) 4 mg IV Q6H PRN PRN Reason: Nausea Stop: 07/04/24 15:42 Oxycodone HCl (Oxycodone Hcl Ir 5 Mg Tab (Immediate Release)) 2.5 mg PO Q6H PRN PRN Reason: Severe Pain (Scale 7, 8, 9,10) Stop: 06/18/24 16:40 Last Admin: 06/06/24 18:27 Dose: 2.5 mg Polyethylene Glycol (Polyethylene (Miralax) 17 Gm Pack) 17 gm PO DAILY [facility] Stop: 07/07/24 08:59 Last Admin: 06/10/24 08:30 Dose: 17 gm Senna/Docusate Sodium (Docusate Sodium/Senna 50/8.6mg Tab) 1 tab PO BID [facility] Stop: 07/07/24 08:59 Last Admin: 06/10/24 08:28 Dose: 1 tab (1) Traumatic hematoma of right hip Encounter type: initial encounter Qualified Code(s): S70.01XA - Contusion of right hip, initial encounter (2) Fall Encounter type: initial encounter Qualified Code(s): W19.XXXA - Unspecified fall, initial encounter (3) Closed pelvic fracture Encounter type: initial encounter Laterality: right Pelvic bone location: pubis Sublocation of pubis: unspecified portion of pubis Qualified Code(s): S32.501A - Unspecified fracture of right pubis, initial encounter for closed fracture
--- NOTE | 2024-06-10 15:42 | Electrocardiogram Report ---
Test Reason : Blood Pressure : */* mmHG Vent. Rate : 107 BPM Atrial Rate : 108 BPM P-R Int : * ms QRS Dur : 70 ms QT Int : 360 ms P-R-T Axes : * 63 23 degrees QTcB Int : 480 ms Atrial fibrillation with rapid ventricular response with premature ventricular or aberrantly conducte d complexes Nonspecific ST abnormality Abnormal ECG When compared with ECG of 04-Jun-2024 18:27, Questionable change in QRS axis Nonspecific T wave abnormality no longer evident in Lateral leads Confirmed by Pooja Acosta ([id number]) on 06/07/2024 6:21:34 PM Referred By: REFERRED SELF Confirmed By: Pooja Acosta
[2024-06-10 16:01] VITALS: RESP 16
[2024-06-10] MEDS: METOPROLOL SUCC 50MG EXT REL TAB PO SCH (19:45)
[2024-06-11 07:15] VITALS: BP 169/76; PULSE 78; TEMP 97.9; O2SAT 97
--- NOTE | 2024-06-11 08:13 | Hospitalist Progress Note ---
Date of Service June 11, 2024 Assessment & Plan (1) Traumatic hematoma of right hip: (2) Fall: (3) Closed pelvic fracture: (4) UTI (urinary tract infection): (5) Chronic atrial fibrillation: (6) CKD (chronic kidney disease) stage 3, GFR 30-59 ml/min: Plan This is an 88 year old female with PMH atrial fibrillation anticoagulated on Eliquis, HTN, dyslipidemia, anxiety who presents with R hip pain after fall and was found to have an acute fracture of the inferior right pubic ring, UTI and A fib with RVR. Fall Ambulatory dysfunction Hip/pelvis XR with an acute fracture of the inferior right pubic ring Ortho service evaluated - WBAT with walker, hold Eliquis for now due to hematoma - resume Eliquis on 06/11 CT head, cervical spine CT and CXR reviewed - no acute injury or abnormalities noted PT/OT recommending rehab Follow up with orthopedics in approximately 1 month Scheduled Tylenol, lidocaine patch, adding oxycodone for breakthrough severe pain Fall precautions Chronic Atrial fib increase metoprolol back to home dose of 100mg bid and resume eliquis on 06/11 On admission she was seen and eval by cards who reduced metoprolol to 25bid with addition of digoxin (pt was on before but stopped for unknown reasons) have been slowly titrating metoprolol back to 100mg bid for better rate control Acute metabolic encephalopathy: Urinary tract infection: Similar confusion and generalized weakness to previous UTIs Urine + Klebsiella oxytoca, likely a colonized organism s/p IV Ceftriaxone x 4 days, tx complete, [place] removed daughter concerned she still may have a UTI, will obtain a straight cath sample, she is afebrile, wbc wnl urine culture growing > 100k enterococcus, await final sensitivity before discharge HLD (hyperlipidemia):continue statin HS Anxiety: chronic, stable Continue fluoxetine CKD (chronic kidney disease) stage 3, GFR 30-59 ml/min: chronic, stable DVT Ppx: resume eliquis tomorrow Code status: DNR/DNI PCP: Dr Ramsay Dispo: medically stable for discharge, awaiting rehab placement, possible [facility] Discussed with Roxanna Antony on phone regarding current assessment and plan. She agrees with above. I spent a total of 47 minutes coordinating, documenting, and providing care for this patient excluding time spent in the performance of separately billed services. Admission and Anticipated Discharge Date Admission Date: June 04, 2024 Subjective Patient was seen and examined in room 309. Follow-up UTI, fall, pubic rami fracture. ROS unreliable in setting of dementia. Overall she offers no acute concerns. She denies f/c/s, chest pain, sob, n/v/d. She has been walking around all morning with therapy she reports. Spoke to Daughter on phone who feels her mentation has improved over last 2 days. Review of Systems Review of Systems: Neuro: (-) Falls, trauma, slurred speech HEENT: (-) SCHULZ, dizziness, dysphagia, visual or auditory changes CV: (-) CP, palpitations, swelling Resp: (-) SOB GI: (-) appetite changes, N/V/D, bowel changes : (-) urinary changes Skin: (-) rashes Psych: (-) anxiety, depression Physical Exam Physical Exam: Neuro: AAOx4, PERRLA, no aphagia, memory changes, CNII-XII grossly intact HEENT: head normocephalic, moist mucus membranes CV: S1/S2, (-) M/G/R, (-) edema, cap refill < 3 seconds Resp: Lungs CTA in all ja[place]. On RA GI: Abdomen S/NT/ND, Ax4 bowel sounds, (-) CVA tenderness Musculoskeletal: 5/5 B/L UE strength, 5/5 B/L LE strength. No gait disturbance Skin: (-) rashes , (-) erythema. Psych: euthymic mood Results & Data Results & Data Vital Signs (Past 12 Hours) Vital Signs Temp Pulse Resp BP Pulse Ox O2 Del Method 06/11/24 07:12 36.6 C 78 16 169/76 H 97 Room Air (1) Traumatic hematoma of right hip Encounter type: initial encounter Qualified Code(s): S70.01XA - Contusion of right hip, initial encounter (2) Fall Encounter type: initial encounter Qualified Code(s): W19.XXXA - Unspecified fall, initial encounter (3) Closed pelvic fracture Encounter type: initial encounter Laterality: right Pelvic bone location: pubis Sublocation of pubis: unspecified portion of pubis Qualified Code(s): S32.501A - Unspecified fracture of right pubis, initial encounter for closed fracture
[2024-06-11] MEDS: APIXABAN 2.5 MG TAB PO SCH (09:01)
[2024-06-11 09:08] LABS: Hematocrit (blood only) 39.1 % (37.0-47.0); Hemoglobin 12.5 g/dl (12.0-16.0); Mean Corpuscular Volume 93.8 fL (80.0-100.0); Mean Platelet Volume 9.8 fL (9.4-12.4); Platelet Count 201 K/uL (130-400); RDW Coefficient of Variation 13.6 % (11.5-14.5); RDW Standard Deviation 45.9 fL (36.4-46.3); Red Blood Count 4.17 M/uL (4.20-5.40); White Blood Count 6.54 K/ul (4.8-10.8)
[2024-06-11 09:33] LABS: BUN Creatinine Ratio 24.1 (10-20); Creatinine Clr Calc Pharmacy 68.7 ml/min; Est GFR (Non-African American) 83.7 ml/min; Potassium 4.2 mmol/L (3.5-5.1)
--- NOTE | 2024-06-11 14:03 | Discharge Summary ---
Date of Service June 11, 2024 Admission HPI Per Admitting Provider This is an 88 year old female with PMH atrial fibrillation anticoagulated on Eliquis, HTN, dyslipidemia, anxiety who presents with R hip pain after fall. Was walking in apartment "when it was dark out" and remembers falling onto her face. Does not remember any other details but present with a constant, 7/10 aching R hip pain extending into groin. Neighbor found her face down in kitchen but conscious and called EMS for further evaluation. Walks with a walker and sometimes leans backwards and had a fall backwards last week and another fall 2 weeks prior. Daughter states he mom is typically A&O x 3 but historically becomes confused quickly with UTIs. Denies any fever, chills, headache, chest pain, shortness of breath, vomiting, abdominal pain, diarrhea or constipation. Has history of chronic A-fib that is asymptomatic for her. When examined in ED, found patient to be tachycardic with A fib in 120s as well as hypoxic in 80s. Is not on oxygen at baseline but did receive IV fentanyl 50mcg x 1 in ED. Placed on supplemental O2 with improved O2 saturations to 05%. Has also received a dose of Cefepime and 750ml NSS in total thus far. Admission Exam Per Admitting Provider GENERAL: Alert and oriented x1. NAD, on 2L NC O2. appears old/frail/weak. HEENT: No pallor, no icterus. Pupils equal, round and reactive to light. Oral mucosa dry. NECK: No JVD, no neck masses. HEART: S1 and S2 heard. irregular rate and rhythm, rate in 110s. No murmur, no gallop. RESPIRATORY SYSTEM: Normal AP diameter. No accessory muscle use. No wheezing, no crackles. ABDOMEN: Soft, bowel sounds present, nontender, no distention. CENTRAL NERVOUS SYSTEM: No facial droop. Speech is clear. Obeys simple commands. Moves extremities. EXTREMITIES: No edema, no erythema seen. dry lower extremities. Principal Diagnosis UTI/hip fracture Discharge Exam Neuro: AAOx4, PERRLA, no aphagia, memory changes, CNII-XII grossly intact HEENT: head normocephalic, moist mucus membranes CV: S1/S2, (-) M/G/R, (-) edema, cap refill < 3 seconds Resp: Lungs CTA in all jaimes. On RA GI: Abdomen S/NT/ND, Ax4 bowel sounds, (-) CVA tenderness Musculoskeletal: 5/5 B/L UE strength, 5/5 B/L LE strength. No gait disturbance Skin: (-) rashes , (-) erythema. Psych: euthymic mood Discharge Data Allergies Allergy/AdvReac Type Severity Reaction Status Date / Time Penicillins Allergy Unknown CAN'T Verified 06/04/24 12:49 REMEMBER propoxyphene Allergy Unknown CAN'T Verified 06/04/24 12:49 REMEMBER quinine Allergy Unknown CAN'T Verified 06/04/24 12:49 REMEMBER morphine AdvReac Severe extreme Verified 06/04/24 12:49 confusion Cephalosporins AdvReac Intermediate DIZZINESS Verified 06/04/24 12:49 & NAUSEA lisinopril AdvReac Intermediate COUGH Verified 06/04/24 12:49 simvastatin AdvReac Intermediate MUSCLE PAIN Verified 06/04/24 12:49 Consultations 06/04/24 12:40 ED Decision to Admit Stat 06/04/24 12:59 Consult Orthopedic Surgery Routine 06/04/24 16:36 Consult Cardiology Routine Ordered Studies 06/04/24 10:24 CT cervical spine wo con Stat CT head/brain wo con Stat Hospital Course (1) Fall: (2) Urinary tract infection: (3) Chronic atrial fibrillation: (4) Weakness: (5) Closed pelvic fracture: Plan Ms. Rogers was admitted to the [facility] on 06/04/24 after presenting with right hip pain after experiencing a fall. You were found to have an acute fracture in a bone in the inferior right pubic ring. You also were found to have an acute urinary tract infection and atrial fibrillation with rapid ventricular rate. Numerous images were obtained including a head CT, cervical spine CT and chest xray; all were negative for acute abnormalities. Orthopedics evaluated the patient while she was inpatient and recommended her to be weight bearing as tolerated with walker, Joannaquis was on hold due to hematoma from the fall and she is to start PT/OT who ultimately recommended acute re habilitation. Joannaquis to resume today 06/11. She is recommended to follow up with orthopedics in one month. Her pain was controlled with Tylenol, a lidocaine patch and oxycodone for breakthrough pain. Her Metoprolol was reduced to 25 mg by mouth twice daily with adding Digoxin as well, but has since been increased to her home regimen dose of 100 mg PO BID. Her urinary tract infection was treated with Rocephin and given the urine culture will continue treatment with Macrobid for three days. Her urine cultulre appeared to be contaminated and it could be beneficial to have a repeat urine culture at [place]. Her urine culture was positive for Klebsiella oxytoca on 06/04 when the Rocephin was started. likely a colonized organism We appreciate the opportunity to have cared for Ms. Rogers and we wish her well in her recovery. Total Time Total Time Spent Total Time Spent (In Minutes): I spent a total of [52] minutes coordinating, documenting, and providing care for this patient excluding time spent in the performance of separately billed services. All of the aforementioned completed while collaborating with the assigned attending physician for a full treatment plan. Please see their addendum for further details. Discharge Plan Discharge Items Patient Disposition: Transfer Residential Fac Reason For Visit: UTI, PUBIC RAMI FRACTURE, A FIB WITH RVR Discharge Diagnosis: You were admitted to the [facility] on 06/04/24 after presenting with right hip pain after experiencing a fall. You were found to have an acute fracture in a bone in the inferior right pubic ring. You also were found to have an acute urinary tract infection and atrial fibrillation with rapid ventricular rate. Numerous images were obtained including a head CT, cervical spine CT and chest xray; all were negative for acute abnormalities. Orthopedics evaluated you while you were here and recommended you to be weight bearing as tolerated with walker, hold your Eliquis for now due to a hematoma you obtained from your fall and start PT/OT who ultimately recommended PT/OT. You were recommended to follow up with orthopedics in one month. You were given Tylenol, a lidocaine patch and oxycodone for breakthrough pain. Your Metoprolol was reduced to 25 mg by mouth twice daily with adding Digoxin as well. Your urinary tract infection was treated with Rocephin and given your urine culture will continue treatment with Macrobid for three days. It would be a good idea to have a repeat urine culture at [place]. Condition on Discharge: Good Activity: Per Instructions section Exercise Comment: WBAT Weightbearing Comment: WBAT Non-emergency contact: Primary Care Provider Call non-emergency contact if: you have any medication questions and your symptoms worsen Follow-up/Referrals: Arcenio Ramsay MD [Primary Care Provider] - Diet: Regular Addtl Attending Provider Instructions: MEDICATION CHANGES: You completed a course of Rocephin and will continue taking Macrobid for three days after discharge. Your Metoprolol has been increased to 100 mg by mouth twice daily, your home dosing. PENDING TEST RESULTS: Your most recent urine culture results indicated three different bacteria (not identified in results). Likely this was contaminated, could benefit from a repeat culture RECOMMENDATIONS FOR FOLLOW-UP: Follow up with your PCP at [facility] OTHER INSTRUCTIONS: Seek medical attention if you have: * temperature above 101 * chest pain or trouble breathing * abdominal pain, nausea, vomiting * diarrhea, dark stools or bloody stools * any unanswered questions or concerns Call 911 if symptoms are severe. Please take good care of yourself. It has been a pleasure taking care of you. Please take care of yourself. If you have any questions regarding your recent hospitalization please contact [facility] and request Jean-Claude Maryist @ [phone]. Pending Studies at Discharge: No Stand-Alone Forms: My [facility] Skilled Items Patient informed of condition?: Yes DNR: Yes Discharge Level of Care: Skilled Communicable Disease: No Discharge Prognosis: Stable Lines: None Urinary Catheter: No Medications and DC Order Prescriptions: New nitrofurantoin monohyd/m-cryst [Macrobid] 100 mg capsule 100 mg PO BID 3 Days Qty: 6 0RF Rx Instructions: must administer with a meal/food digoxin [Digitek] 125 mcg (0.125 mg) Tablet 0.125 mg PO QAM Qty: 10 0RF Continued atorvastatin 10 mg tablet 10 mg PO HS fluoxetine 20 mg capsule 20 mg PO QAM Rx Instructions: PER PT'S DAUGHTER "MISS HER MOUTH, DIDN'T TAKE THIS AM, FOUND ON PT'S CHEST BY EMS". acetaminophen 325 mg Tablet 650 mg PO Q6H PRN (Reason: pain) Qty: 50 0RF multivitamin Tablet 1 tab PO DAILY Eliquis 2.5 mg tablet 2.5 mg PO BID Rx Instructions: PER PT'S DAUGHTER "MISS HER MOUTH, DIDN'T TAKE THIS AM, FOUND ON PT'S CHEST BY EMS". Mucinex DM 30-600 mg Tablet Extended Release 12 Hr 1 tab PO Q12H PRN (Reason: Congestion) metoprolol succinate 100 mg Tablet Extended Release 24 Hr 100 mg PO BID Discharge Orders: Discharge Order (Routine); Ordered 06/11/24 Ordered By: Nataly Allison Admission Data Admit Date/Time: 06/04/24 12:58 Attending Provider: Nacho Leslie Admit Provider: Fantasma Avilez Primary Care Provider: Arcenio Ramsay Other Providers: [facility]; Willem Moreno at [place]; Fantasma Avilez; Herman Griffin; IRB Approved Study,[place]; Alfredo Francisco; [facility] Other Interventions: Discharge Summary Assessment (RN) Last Done: 06/11/24 13:59 Supervising Physician Co-Signing Physician Notes Attending addendum: The patient was seen and examined in medical floor She has been stable and denies any symptoms On examination Sitting on a chair without any acute distress Physical examinations remain unremarkable Her labs, medications reviewed Urine is showing 3 types of organisms and recent history of UTI treated with antibiotic Will give 3 days course of additional Macrobid Otherwise remains stable to be transferred to skilled care facility Agree with assessment plan as outlined above by SONYA Abernathy and take the full responsibility of the patient care Dr. Trae Leslie
== END 2024-06-11 14:51 | DRG 871 ==
LOC: ED 09:53 → EDINP 12:58 → SUATTDRO 12:58 → 4W 20:20 → 3E 06-06 13:56